=== PATIENT | male | born 1945 | race Caucasian/White ===

== ENCOUNTER 2016-03-09 16:43 | Inpatient (IN) | payer MEDICARE, MEDICAID ==
[2016-03-09 20:01] LABS: % BASOPHILS 0.4 % (0.0-2.0); % EOSINOPHILS 14.4 % (0.0-5.0); % LYMPHOCYTES 13.3 % (20.0-50.0); % MONOCYTES 6.9 % (2.0-10.0); ALB/GLOB RATIO 0.7 (1.0-1.8); ALKALINE PHOSPHATASE 85 U/L (34-104); ANION GAP 7.2 (7.0-16.0); BILIRUBIN,TOTAL 0.3 mg/dL (0.3-1.0); BUN - UREA NITROGEN 17 mg/dL (7-25); BUN/CREATININE RATIO 13.1; CARBON DIOXIDE 23.1 mEq/L (21.0-31.0); CHLORIDE 104 mEq/L (98-107); CREATININE - SERUM 1.3 mg/dL (0.7-1.3); GLUCOSE 106 mg/dL (70-105); MEAN CORPUSCULAR HEMOGLOBIN 24.4 pg (27.0-31.0); MEAN PLATELET VOLUME 7.9 fl; NEUTROPHILE ABSOLUTE 9.3 Th/cmm (1.8-8.0); PLATELET COUNT 412 Th/cmm (150-400); POTASSIUM SERUM 3.3 mEq/L (3.5-5.1); RED BLOOD COUNT 2.95 Mil/cmm (3.80-5.80); RED CELL DISTRIBUTION WIDTH 17.5 % (11.5-20.0); SGOT 7 U/L (13-39); SGPT/ALT < 3 U/L (7-52); SODIUM SERUM 131 mEq/L (136-145); WHITE BLOOD COUNT 14.4 Th/cmm (4.8-10.8)
[2016-03-09 20:07] LABS: HEMOGLOBIN 7.2 gm/dL (12.6-17.4)
[2016-03-09 20:08] LABS: HEMATOCRIT 21.8 % (39.0-49.0)
--- NOTE | 2016-03-09 20:59 | ED Physician Chart ---
Chief Complaint/HPI - Patient Information Date Seen:: 03/09/16 Time Seen:: 16:50 Chief Complaint:: bright red blood in stool History of Present Illness:: 70-year-old male, brought in from nursing facility with acute, moderate to severe, bright red blood per rectum that happened at 1430 this afternoon. History limited as patient has underlying dementia and is unable to provide accurate history History provided by EMS and EMS run sheet Allergies:: Allergies Allergy/AdvReac Type Severity Reaction Status Date / Time No Known Allergies Allergy Verified 03/09/16 17:30 Vitals:: Vital Signs - 8 hr 03/09/16 17:30 Temp 98.7 F HR 88 RR 17 BP 98/62 O2 Sat % 100 Historian:: EMS Review:: Nurse's Note Reviewed, EMS run form Reviewed, Transfer documents Reviewed Review of Systems - Review of Systems Other: Complete system review otherwise unremarkable except as noted in HPI. Past Medical History - Past Medical History Past Medical History: HTN, Asthma/COPD, Dementia Family History: None Social History: Non Smoker, No Alcohol, No Drug Use, Care Facility Surgical History: None Psychiatricy History: Dementia Medication: Reviewed Family Medical History - Family Member Mother History Unknown: Yes Ethnicity: Non- Living Status: Physical Exam - Physical Examination Other:: INITIAL VITAL SIGNS: Reviewed by me GENERAL: Alert and interactive but demented. No acute distress HEAD: Head is normocephalic and atraumatic EYES: EOMI. . No scleral icterus. No conjunctival injection ENT: Moist mucous membranes. NECK: Supple. No masses. Full range of motion RESPIRATORY: No tachypnea. Clear breath sounds bilaterally. No wheezing, rales, or rhonchi CV: Regular rate and rhythm. No murmurs, rubs, or gallops ABDOMEN: Soft, non-distended, non-tender. No guarding. No rebound. No masses. EXTREMITIES: No deformity. No cyanosis. No edema. SKIN: Warm and dry. No obvious rashes. RECTAL: No gross blood on digital exam. No appreciable hemorrhoids or excoriations. NEUROLOGIC: Alert and oriented. Face is symmetric. Speech is normal. Moves all extremities equally. Motor and sensory distally intact. Labs/Radiology/EKG Results - Lab Results Results: Laboratory Tests 03/09/16 03/09/16 19:31 19:31 WBC 14.4 H RBC 2.95 L Hgb 7.2 L* Hct 21.8 L* MCV 74.0 L MCH 24.4 L MCHC Differential 33.0 RDW 17.5 Plt Count 412 H MPV 7.9 Neutrophils % 65.0 Lymphocytes % 13.3 L Monocytes % 6.9 Eosinophils % 14.4 H Basophils % 0.4 Sodium 131 L Potassium 3.3 L Chloride 104 Carbon Dioxide 23.1 Anion Gap 7.2 BUN 17 Creatinine 1.3 Est GFR ( Amer) > 60.0 Est GFR (Non-Af Amer) 58.0 BUN/Creatinine Ratio 13.1 Glucose 106 H Calcium 9.0 Total Bilirubin 0.3 AST 7 L ALT < 3 L Alkaline Phosphatase 85 Total Protein 7.3 Albumin 3.1 L Globulin 4.2 Albumin/Globulin Ratio 0.7 L Assessment - Assessment General Assessment: Critical Care Time: 30 minutes Treatments/Evaluations: Close monitoring and treatment of unstable vital signs, cardiorespiratory, and neurologic status, while maintaining tight balance of fluid, respiratory, and cardiac interventions. This time includes discussing the case with the patient and the patient's family. This time does not include all procedures stated elsewhere in this record. This time also includes reviewing old records, labs and radiological studies. This time includes examining and re-examining the patient. Additionally, this time also includes arranging care with admitting and consulting physicians. Excludes all billable procedures: Yes This condition life threatening/high prob of deterioration: Yes ED Septic Shock - . Is Septic Shock (SBP<90, OR Lactate>4 mmol\L) present?: No - <6hrs of presentation: Vital Signs: Vital Signs - 8 hr 03/09/16 17:30 Temp 98.7 F HR 88 RR 17 BP 98/62 O2 Sat % 100 Reassessment (Disposition) - Reassessment Reassessment:: Patient has acute lower GI bleed. Ordered 1 unit of PRBCs and IV normal saline. Patient was monitored closely. There was critical care time on this patient of 30 minutes. Patient was discussed with Dr. Plaza who admitted the patient further workup and treatment. Reassessment Condition:: Unchanged - Diagnosis Diagnosis:: Lower GI bleed - Patient Disposition Discharge/Transfer:: Acute Care w/in this hosp Admitted to:: Telemetry Spoke to:: Adriano Plaza Admitting Medical Physician:: Adriano Plaza Time:: 21:31 Condition at Disposition:: Improved ED Discharge Plan - Patient Disposition Admit/Discharge/Transfer: Acute Care w/in this hosp Condition at Disposition: Improved
[2016-03-09] MEDS ORDERED: Sodium Chloride 0.9% 1,000 ML IV ONE (21:00)
[2016-03-09] MEDS ORDERED: APAP/Codeine 300 mg/30 mg Tab PO PRN (21:34)
[2016-03-09] MEDS ORDERED: Maalox 30 mL Cup PO PRN (21:34)
[2016-03-09 21:36] LABS: INR 1.02 (0.5-1.4); PROTHROMBIN TIME (TEST) 10.1 SECONDS (9.5-11.5)
[2016-03-09] MEDS ORDERED: Pantoprazole 80 MG in Sodium Chloride 0.9% 100 ML IV ONE (21:37)
[2016-03-09] MEDS ORDERED: Albuterol Nebulizer 2.5mg/3mL IH PRN (21:38)
[2016-03-09] MEDS ORDERED: D5-0.9%NS 1,000 ML IV SCH (21:45)
[2016-03-10] MEDS: Pantoprazole 80 MG in Sodium Chloride 0.9% 100 ML IV SCH ×2 (03:12→19:46)
[2016-03-10 04:46] LABS: % BASOPHILS 0.5 % (0.0-2.0); RED BLOOD COUNT 3.07 Mil/cmm (3.80-5.80)
[2016-03-10 04:51] LABS: INR 0.98 (0.5-1.4); PROTHROMBIN TIME (TEST) 9.7 SECONDS (9.5-11.5)
[2016-03-10 04:54] LABS: ALB/GLOB RATIO 0.7 (1.0-1.8); ALKALINE PHOSPHATASE 73 U/L (34-104); ANION GAP 6.8 (7.0-16.0); BILIRUBIN,TOTAL 0.7 mg/dL (0.3-1.0); BUN - UREA NITROGEN 14 mg/dL (7-25); CALCIUM SERUM 8.2 mg/dL (8.6-10.3); CARBON DIOXIDE 21.3 mEq/L (21.0-31.0); CHLORIDE 111 mEq/L (98-107); GLUCOSE 107 mg/dL (70-105); MAGNESIUM 2.1 mg/dL (1.9-2.7); POTASSIUM SERUM 3.1 mEq/L (3.5-5.1); SGOT 10 U/L (13-39); SGPT/ALT 4 U/L (7-52); SODIUM SERUM 136 mEq/L (136-145)
[2016-03-10 05:04] LABS: % EOSINOPHILS 12.2 % (0.0-5.0); % MONOCYTES 7.4 % (2.0-10.0); % NEUTROPHILS 70.9 % (40.0-80.0); MEAN CELL VOLUME 77.3 fl (80-99); MEAN CORPUSCULAR HEMOGLOBIN 25.3 pg (27.0-31.0); MEAN CORPUSCULAR HGB CONC 32.6 pg (28.0-36.0); MEAN PLATELET VOLUME 7.5 fl; NEUTROPHILE ABSOLUTE 10.6 Th/cmm (1.8-8.0); PLATELET COUNT 369 Th/cmm (150-400); RED CELL DISTRIBUTION WIDTH 19.3 % (11.5-20.0)
[2016-03-10 05:13] LABS: HEMATOCRIT 23.7 % (39.0-49.0); HEMOGLOBIN 7.8 gm/dL (12.6-17.4)
[2016-03-10 05:31] LABS: TSH 2.57 uIU/ml (0.34-5.60)
[2016-03-10 05:39] LABS: BNP 36.6 pg/mL (5.0-100.0)
[2016-03-10] MEDS ORDERED: FISH OIL PO SCH (09:00)
[2016-03-10] MEDS ORDERED: FATTY ACIDS PO SCH (09:00)
[2016-03-10] MEDS ORDERED: [UNRECOGNIZED DRUG - OTHER] PO SCH (09:00)
[2016-03-10] MEDS ORDERED: Fish Oil 1,000 MG SGL PO ONE (09:00)
[2016-03-10] MEDS ORDERED: OMEGA PO SCH (09:00)
--- NOTE | 2016-03-10 11:14 | Diagnostic Imaging Report ---
Portable chest x-ray History: Shortness of breath Allowing for portable technique the heart size is normal. No focal pulmonary parenchymal processes. No hilar or mediastinal abnormalities. Impression: No acute abnormalities.
--- NOTE | 2016-03-10 17:23 | Internal Medicine Prog Note ---
Internal Medicine Subjective - Subjective Service Date: 03/10/16 ([id number] HNP DICTATED) Internal Medicine Objective - Results Result Diagrams: 03/10/16 04:30 03/10/16 04:30 Recent Labs: Laboratory Last Values WBC 15.0 Th/cmm (4.8-10.8) H 03/10/16 04:30 RBC 3.07 Mil/cmm (3.80-5.80) L 03/10/16 04:30 Hgb 7.8 gm/dL (12.6-17.4) L* 03/10/16 04:30 Hct 23.7 % (39.0-49.0) L* 03/10/16 04:30 MCV 77.3 fl (80-99) L 03/10/16 04:30 MCH 25.3 pg (27.0-31.0) L 03/10/16 04:30 MCHC Differential 32.6 pg (28.0-36.0) 03/10/16 04:30 RDW 19.3 % (11.5-20.0) 03/10/16 04:30 Plt Count 369 Th/cmm (150-400) 03/10/16 04:30 MPV 7.5 fl 03/10/16 04:30 Neutrophils % 70.9 % (40.0-80.0) 03/10/16 04:30 Lymphocytes % 9.0 % (20.0-50.0) L 03/10/16 04:30 Monocytes % 7.4 % (2.0-10.0) 03/10/16 04:30 Eosinophils % 12.2 % (0.0-5.0) H 03/10/16 04:30 Basophils % 0.5 % (0.0-2.0) 03/10/16 04:30 PT 9.7 SECONDS (9.5-11.5) 03/10/16 04:30 INR 0.98 (0.5-1.4) 03/10/16 04:30 PTT (Actin FS) 28.8 SECONDS (26.0-38.0) 03/10/16 04:30 Sodium 136 mEq/L (136-145) 03/10/16 04:30 Potassium 3.1 mEq/L (3.5-5.1) L 03/10/16 04:30 Chloride 111 mEq/L (98-107) H 03/10/16 04:30 Carbon Dioxide 21.3 mEq/L (21.0-31.0) 03/10/16 04:30 Anion Gap 6.8 (7.0-16.0) L 03/10/16 04:30 BUN 14 mg/dL (7-25) 03/10/16 04:30 Creatinine 1.0 mg/dL (0.7-1.3) 03/10/16 04:30 Est GFR ( Amer) > 60.0 ml/min 03/10/16 04:30 Est GFR (Non-Af Amer) > 60.0 ml/min 03/10/16 04:30 BUN/Creatinine Ratio 14.0 03/10/16 04:30 Glucose 107 mg/dL (70-105) H 03/10/16 04:30 Calcium 8.2 mg/dL (8.6-10.3) L 03/10/16 04:30 Magnesium 2.1 mg/dL (1.9-2.7) 03/10/16 04:30 Total Bilirubin 0.7 mg/dL (0.3-1.0) 03/10/16 04:30 AST 10 U/L (13-39) L 03/10/16 04:30 ALT 4 U/L (7-52) L 03/10/16 04:30 Alkaline Phosphatase 73 U/L (34-104) 03/10/16 04:30 Ammonia 41 umol/L (16-53) 03/10/16 04:30 B-Natriuretic Peptide 36.6 pg/mL (5.0-100.0) 03/10/16 04:30 Total Protein 6.3 gm/dL (6.0-8.3) 03/10/16 04:30 Albumin 2.6 gm/dL (4.2-5.5) L 03/10/16 04:30 Globulin 3.7 gm/dL 03/10/16 04:30 Albumin/Globulin Ratio 0.7 (1.0-1.8) L 03/10/16 04:30 TSH 2.57 uIU/ml (0.34-5.60) 03/10/16 04:30 Blood Type B POSITIVE 03/09/16 19:31 Antibody Screen NEGATIVE 03/09/16 19:31 Crossmatch See Detail 03/09/16 19:31 - Physical Exam Vitals and I&O: Vital Signs Temp 98.6 F 03/10/16 16:46 Pulse 76 03/10/16 16:46 Resp 21 03/10/16 16:46 BP 101/57 03/10/16 16:46 Pulse Ox 98 03/10/16 16:46 Active Medications: Current Medications Acetaminophen (Tylenol) 650 mg PO Q6HR PRN PRN Reason: PAIN OR TEMP >100 Stop: 05/08/16 21:33 Acetaminophen/Codeine Phosphate (Tylenol W/Codeine #3) 1 tab PO Q4HR PRN PRN Reason: PAIN Stop: 05/08/16 21:33 Al Hydrox/Mg Hydrox/Simethicone (Maalox) 30 ml PO Q4HR PRN PRN Reason: Indigestion Stop: 05/08/16 21:33 Albuterol Sulfate (Albuterol 2.5mg/3ml Neb Ud) 2.5 mg IH Q2HR PRN PRN Reason: Shortness of Breath or Wheeze Stop: 05/08/16 21:37 Pantoprazole Sodium 80 mg/ (Sodium Chloride) 100 mls @ 10 mls/hr IV Q10H [facility] Stop: 05/08/16 21:44 Last Admin: 03/10/16 03:12 Dose: 10 mls/hr Dextrose/Sodium Chloride (D5-0.9%Ns) 1,000 mls @ 80 mls/hr IV .[id number] [facility] Stop: 05/08/16 21:44 Last Admin: 03/10/16 03:05 Dose: 80 mls/hr Meclizine HCl (Antivert) 25 mg PO DAILY PRN PRN Reason: Nausea / Vomiting Stop: 05/08/16 21:37 Mirtazapine (Remeron) 7.5 mg PO HS [facility] PRN Reason: Protocol Stop: 05/09/16 20:59 Miscellaneous (Donepezil Hcl [Aricept]) 10 mg PO HS [facility] Stop: 05/09/16 20:59 Ondansetron HCl (Zofran) 4 mg IV Q8H PRN PRN Reason: Nausea / Vomiting Stop: 05/08/16 21:37 Quetiapine Fumarate (Seroquel) 100 mg PO QPM COUNT INCLUDES THE [facility] PRN Reason: Protocol Stop: 05/09/16 16:59 Tamsulosin HCl (Flomax) 0.4 mg PO DAILY COUNT INCLUDES THE [facility] Stop: 05/09/16 08:59 Last Admin: 03/10/16 11:15 Dose: Not Given - Procedures Procedures: Procedures Procedure Code Date GROUP PSYCHOTHERAPY 10108 06/08/03 INDIVID PSYCHOTHERAP NEC 94.39 06/08/03 OTHER GROUP THERAPY 94.44 06/08/03 Internal Medicine Assmt/Plan - Assessment Assessment: GI BLEED ANEMIA HYPOTENSION
[2016-03-10] MEDS ORDERED: Pneumococcal Vaccine 0.5 mL Vial IM ONE (18:28)
[2016-03-10] MEDS ORDERED: Non-Formulary Item 1 EA (Donepezil Hcl [Aricept] 10 MG) PO SCH (21:00)
--- NOTE | 2016-03-10 21:03 | History & Physical ---
CHIEF COMPLAINT: Bright red stool. HISTORY OF PRESENT ILLNESS: This is a 70-year-old -[place] male who is a resident of [facility] who is sent here to [facility] for having bright red blood since this afternoon. The patient is awake, alert with some confusion, but no weakness noted. The patient is a very poor historian. PAST MEDICAL HISTORY: Hypertension, COPD, asthma, and dementia. FAMILY HISTORY: Noncontributory. SOCIAL HISTORY: The patient resides at [facility], requiring 24-hour nursing care. PSYCHIATRIC HISTORY: Dementia. MEDICATIONS: Please see medication reconciliation sheet. ALLERGIES: No drug allergies. REVIEW OF SYSTEMS: Unable to obtain, patient is confused. PHYSICAL EXAMINATION: GENERAL: The patient is well developed, well nourished, in no apparent distress. VITAL SIGNS: Temperature 98.6, heart rate 76, blood pressure 101/57, respirations 21, O2 90%. HEENT: Head; normocephalic, atraumatic. NECK: Supple. No mass. LUNGS: Clear bilaterally upon auscultation. CARDIOVASCULAR: Regular rate and rhythm. No murmurs, gallops. SKIN: Intact to touch. ABDOMEN: Soft, nontender, nondistended. Positive bowel sounds in all 4 quadrants. LABORATORY DATA: WBC 15.0, H and H 7.8 and 23.7, platelet of 369. Sodium 136, potassium 3.1, chloride 111, BUN 14, creatinine 1.0. The patient had a chest x-ray done in the ER and the impression is no acute abnormalities. ASSESSMENT: 1. GI bleed, ____, anemia. 2. Hypertension. 3. COPD. PLAN: The patient will be admitted to the telemetry unit. The patient will have a consultation with Dr. [place]. We will monitor the patient's H and H. The patient to be on IV fluids for hydration. We will continue to monitor the patient. JOB# [id number]
[2016-03-10] MEDS ORDERED: D5W w/20 mEq KCL 1,000 ML IV SCH ×2 (22:22→22:23)
[2016-03-10] MEDS ORDERED: Potassium Chloride 20 mEq ER Tab PO ONE (22:22)
[2016-03-11 07:30] LABS: ANION GAP 4.4 (7.0-16.0); BUN - UREA NITROGEN 9 mg/dL (7-25); CALCIUM SERUM 8.4 mg/dL (8.6-10.3); CARBON DIOXIDE 21.5 mEq/L (21.0-31.0); CHLORIDE 111 mEq/L (98-107); GLUCOSE 105 mg/dL (70-105); HEMATOCRIT 27.3 % (39.0-49.0); HEMOGLOBIN 9.1 gm/dL (12.6-17.4); MEAN CELL VOLUME 79.4 fl (80-99); MEAN CORPUSCULAR HEMOGLOBIN 26.4 pg (27.0-31.0); MEAN CORPUSCULAR HGB CONC 33.3 pg (28.0-36.0); MEAN PLATELET VOLUME 7.9 fl; PLATELET COUNT 354 Th/cmm (150-400); RED BLOOD COUNT 3.44 Mil/cmm (3.80-5.80); RED CELL DISTRIBUTION WIDTH 18.9 % (11.5-20.0); SODIUM SERUM 134 mEq/L (136-145)
[2016-03-11 07:40] LABS: POTASSIUM SERUM 2.9 mEq/L (3.5-5.1)
[2016-03-11 08:27] LABS: BAND NEUTROPHILE 5 % (0-10); EOSINOPHIL 8 % (0-5); NEUTROPHILS 76 % (40-80); PLATELET ESTIMATE ADEQUATE (NORMAL); PLATELET MORPHOLOGY NORMAL (NORMAL); TOTAL CELLS COUNTED 100
[2016-03-11 08:28] LABS: ANISOCYTOSIS 1+; MICROCYTOSIS 1+
[2016-03-11] MEDS: Potassium Chloride 20 mEq ER Tab PO SCH ×2 (11:26→17:52)
--- NOTE | 2016-03-11 12:26 | Internal Medicine Prog Note ---
Internal Medicine Subjective - Subjective Service Date: 03/11/16 Patient seen and examined:: with staff Patient is:: awake Per staff patient is:: no adverse event Internal Medicine Objective - Results Result Diagrams: 03/11/16 06:30 03/11/16 06:30 Recent Labs: Laboratory Last Values WBC 18.0 Th/cmm (4.8-10.8) H 03/11/16 06:30 RBC 3.44 Mil/cmm (3.80-5.80) L 03/11/16 06:30 Hgb 9.1 gm/dL (12.6-17.4) L 03/11/16 06:30 Hct 27.3 % (39.0-49.0) L D 03/11/16 06:30 MCV 79.4 fl (80-99) L 03/11/16 06:30 MCH 26.4 pg (27.0-31.0) L 03/11/16 06:30 MCHC Differential 33.3 pg (28.0-36.0) 03/11/16 06:30 RDW 18.9 % (11.5-20.0) 03/11/16 06:30 Plt Count 354 Th/cmm (150-400) 03/11/16 06:30 MPV 7.9 fl 03/11/16 06:30 Neutrophils % 70.9 % (40.0-80.0) 03/10/16 04:30 Band Neutrophils % 5 % (0-10) 03/11/16 06:30 Lymphocytes % 9.0 % (20.0-50.0) L 03/10/16 04:30 Monocytes % 7.4 % (2.0-10.0) 03/10/16 04:30 Eosinophils % 12.2 % (0.0-5.0) H 03/10/16 04:30 Basophils % 0.5 % (0.0-2.0) 03/10/16 04:30 Neutrophils (Manual) 76 % (40-80) 03/11/16 06:30 Lymphocytes 7 % (20-50) L 03/11/16 06:30 Monocytes 4 % (2-10) 03/11/16 06:30 Eosinophils 8 % (0-5) H 03/11/16 06:30 Platelet Estimate ADEQUATE (NORMAL) 03/11/16 06:30 Platelet Morphology NORMAL (NORMAL) 03/11/16 06:30 Anisocytosis 1+ 03/11/16 06:30 Microcytosis 1+ 03/11/16 06:30 RBC Morph Micro Appear ABNORMAL (NORMAL) 03/11/16 06:30 PT 9.7 SECONDS (9.5-11.5) 03/10/16 04:30 INR 0.98 (0.5-1.4) 03/10/16 04:30 PTT (Actin FS) 28.8 SECONDS (26.0-38.0) 03/10/16 04:30 Sodium 134 mEq/L (136-145) L 03/11/16 06:30 Potassium 2.9 mEq/L (3.5-5.1) L* 03/11/16 06:30 Chloride 111 mEq/L (98-107) H 03/11/16 06:30 Carbon Dioxide 21.5 mEq/L (21.0-31.0) 03/11/16 06:30 Anion Gap 4.4 (7.0-16.0) L 03/11/16 06:30 BUN 9 mg/dL (7-25) 03/11/16 06:30 Creatinine 1.0 mg/dL (0.7-1.3) 03/11/16 06:30 Est GFR ( Amer) > 60.0 ml/min 03/11/16 06:30 Est GFR (Non-Af Amer) > 60.0 ml/min 03/11/16 06:30 BUN/Creatinine Ratio 9.0 03/11/16 06:30 Glucose 105 mg/dL (70-105) 03/11/16 06:30 Calcium 8.4 mg/dL (8.6-10.3) L 03/11/16 06:30 Magnesium 2.0 mg/dL (1.9-2.7) 03/11/16 06:30 Total Bilirubin 0.7 mg/dL (0.3-1.0) 03/10/16 04:30 AST 10 U/L (13-39) L 03/10/16 04:30 ALT 4 U/L (7-52) L 03/10/16 04:30 Alkaline Phosphatase 73 U/L (34-104) 03/10/16 04:30 Ammonia 41 umol/L (16-53) 03/10/16 04:30 B-Natriuretic Peptide 36.6 pg/mL (5.0-100.0) 03/10/16 04:30 Total Protein 6.3 gm/dL (6.0-8.3) 03/10/16 04:30 Albumin 2.6 gm/dL (4.2-5.5) L 03/10/16 04:30 Globulin 3.7 gm/dL 03/10/16 04:30 Albumin/Globulin Ratio 0.7 (1.0-1.8) L 03/10/16 04:30 TSH 2.57 uIU/ml (0.34-5.60) 03/10/16 04:30 Blood Type B POSITIVE 03/09/16 19:31 Antibody Screen NEGATIVE 03/09/16 19:31 Crossmatch See Detail 03/09/16 19:31 - Physical Exam Vitals and I&O: Vital Signs Temp 100.3 F 03/11/16 04:00 Pulse 74 03/11/16 07:35 Resp 18 03/11/16 07:35 BP 114/64 03/11/16 04:00 Pulse Ox 98 03/11/16 07:35 Active Medications: Current Medications Acetaminophen (Tylenol) 650 mg PO Q6HR PRN PRN Reason: PAIN OR TEMP >100 Stop: 05/08/16 21:33 Last Admin: 03/11/16 04:45 Dose: 650 mg Acetaminophen/Codeine Phosphate (Tylenol W/Codeine #3) 1 tab PO Q4HR PRN PRN Reason: PAIN Stop: 05/08/16 21:33 Al Hydrox/Mg Hydrox/Simethicone (Maalox) 30 ml PO Q4HR PRN PRN Reason: Indigestion Stop: 05/08/16 21:33 Albuterol Sulfate (Albuterol 2.5mg/3ml Neb Ud) 2.5 mg IH Q2HR PRN PRN Reason: Shortness of Breath or Wheeze Stop: 05/08/16 21:37 Bisacodyl (Dulcolax 5 Mg Ec Tab) 10 mg PO X1 ONE Stop: 03/11/16 16:01 Donepezil HCl (Aricept) 10 mg PO HS [facility] Stop: 05/09/16 20:59 Last Admin: 03/10/16 21:21 Dose: 10 mg Pantoprazole Sodium 80 mg/ (Sodium Chloride) 100 mls @ 10 mls/hr IV Q10H [facility] Stop: 05/08/16 21:44 Last Admin: 03/10/16 19:46 Dose: 10 mls/hr Potassium Chloride/Dextrose (D5w W/20 Meq Kcl) 1,000 mls @ 80 mls/hr IV .[id number] [facility] Stop: 05/09/16 22:21 Last Admin: 03/10/16 23:11 Dose: 80 mls/hr Meclizine HCl (Antivert) 25 mg PO DAILY PRN PRN Reason: Nausea / Vomiting Stop: 05/08/16 21:37 Mirtazapine (Remeron) 7.5 mg PO HS [facility] PRN Reason: Protocol Stop: 05/09/16 20:59 Last Admin: 03/10/16 21:20 Dose: 7.5 mg Ondansetron HCl (Zofran) 4 mg IV Q8H PRN PRN Reason: Nausea / Vomiting Stop: 05/08/16 21:37 Potassium Chloride (Klor-Con) 40 meq PO Q6H [facility] Stop: 03/11/16 19:00 Last Admin: 03/11/16 11:26 Dose: 40 meq Quetiapine Fumarate (Seroquel) 100 mg PO QPM [facility] PRN Reason: Protocol Stop: 05/09/16 16:59 Last Admin: 03/10/16 18:50 Dose: 100 mg Tamsulosin HCl (Flomax) 0.4 mg PO DAILY [facility] Stop: 05/09/16 08:59 Last Admin: 03/11/16 08:32 Dose: 0.4 mg General: alert HEENT: NC/AT, PERRLA Neck: Supple Lungs: CTAB Cardiovascular: RRR, Normal S1, Normal S2, without murmur Abdomen: soft non-tender, non-distended, positive bowel sound - Procedures Procedures: Procedures Procedure Code Date GROUP PSYCHOTHERAPY 08295 06/08/03 INDIVID PSYCHOTHERAP NEC 94.39 06/08/03 OTHER GROUP THERAPY 94.44 06/08/03 Internal Medicine Assmt/Plan - Assessment Assessment: GI BLEED ANEMIA HYPOTENSION - Plan Plan: monitor h/h ivf for hydration cbc/bmp in am
[2016-03-11] MEDS: D5-0.45NS w/40 mEq KCL 1,000 ML IV SCH (14:36)
[2016-03-11] MEDS: Pantoprazole 80 MG in Sodium Chloride 0.9% 100 ML IV SCH (14:37)
[2016-03-11] MEDS ORDERED: Influenza Vaccine 0.5 mL Syr IM ONE (14:58)
[2016-03-11] MEDS ORDERED: VTE Chemical Prophylaxis Screen/Admission MC PRN (17:13)
--- NOTE | 2016-03-12 00:31 | Consultation ---
INPATIENT GASTROINTESTINAL CONSULTATION REFERRING PHYSICIAN: Dr. Plaza. REASON FOR CONSULTATION: Anemia and rectal bleeding. HISTORY OF PRESENT ILLNESS: This is a 70-year-old male who presented to the hospital with rectal bleeding in the Emergency Room. Since then, no further GI bleeding. The patient denies having any abdominal pain. He denies having nausea or vomiting. He states that the blood was bright red. PAST MEDICAL HISTORY: Hypertension, COPD, asthma, and dementia. PAST SURGICAL HISTORY: None to abdomen. FAMILY HISTORY: Noncontributory. SOCIAL HISTORY: Resident of [facility]. ALLERGIES: None. CURRENT MEDICATIONS: Tylenol, Aricept, Antivert, Remeron, Zofran, Protonix drip, Seroquel, and Flomax. REVIEW OF SYSTEMS: Notable for rectal bleeding. All other systems were otherwise negative. PHYSICAL EXAMINATION: VITAL SIGNS: Temperature is 100.3, breathing 18, pulse of 74, blood pressure 114/64, and satting 98%. GENERAL: In no apparent distress, thin. EYES: Eyes are anicteric. Normal conjunctivae. HEENT: Normocephalic and atraumatic. Moist mucous membranes. NECK: Soft and supple. CHEST: Clear, normal effort. CARDIOVASCULAR: Regular rate and rhythm. ABDOMEN: Soft, nontender, and nondistended. Normal bowel sounds. SKIN: Warm and dry. EXTREMITIES: Reveal no cyanosis. PSYCHOLOGICAL: Alert and oriented. LABORATORY DATA: Show white count 18, hemoglobin 9.1, and platelets of 354,000. INR is 0.98. LFTs were within normal limits. IMPRESSION: This is a 70-year-old male with microcytic anemia and rectal bleeding. Cause of the microcytic anemia could be from chronic blood loss, iron deficiency, or anemia of chronic disease. The patient's rectal bleeding would suggest lower source; however, ____ bleeding in the upper GI tract can also do this as well. Endoscopy and colonoscopy are considered because of the microcytic anemia for further workup and a colonoscopy would be beneficial because of the recent rectal bleeding. PLAN: 1. EGD, colonoscopy. 2. Follow H and H and transfuse as needed. Continue Protonix. Thank you for allowing me to participate. Please call me if you have any questions. [facility]# [phone]
[2016-03-12 06:12] LABS: FOLIC ACID 13.3 ng/mL (>3.0)
[2016-03-12] MEDS: D5-0.45NS w/40 mEq KCL 1,000 ML IV SCH (06:27)
[2016-03-12 08:57] LABS: INR 1.08 (0.5-1.4); PROTHROMBIN TIME (TEST) 10.8 SECONDS (9.5-11.5)
[2016-03-12 09:13] LABS: HEMOGLOBIN 10.3 gm/dL (12.6-17.4); MEAN CELL VOLUME 79.9 fl (80-99); MEAN CORPUSCULAR HEMOGLOBIN 27.5 pg (27.0-31.0); MEAN CORPUSCULAR HGB CONC 34.4 pg (28.0-36.0); MEAN PLATELET VOLUME 8.2 fl; PLATELET COUNT 336 Th/cmm (150-400); RED BLOOD COUNT 3.76 Mil/cmm (3.80-5.80); RED CELL DISTRIBUTION WIDTH 19.8 % (11.5-20.0)
[2016-03-12 09:18] LABS: HEMATOCRIT 30.1 % (39.0-49.0); WHITE BLOOD COUNT 22.5 Th/cmm (4.8-10.8)
[2016-03-12 09:33] LABS: ANION GAP 11.7 (7.0-16.0); BUN - UREA NITROGEN 8 mg/dL (7-25); CALCIUM SERUM 8.5 mg/dL (8.6-10.3); CARBON DIOXIDE 21.1 mEq/L (21.0-31.0); CHLORIDE 106 mEq/L (98-107); GLUCOSE 90 mg/dL (70-105); POTASSIUM SERUM 3.8 mEq/L (3.5-5.1); SODIUM SERUM 135 mEq/L (136-145)
[2016-03-12] MEDS: Pantoprazole 80 MG in Sodium Chloride 0.9% 100 ML IV SCH (09:56)
[2016-03-12 09:59] LABS: BAND NEUTROPHILE 5 % (0-10); BASOPHIL 1 % (0-3); EOSINOPHIL 6 % (0-5); NEUTROPHILS 84 % (40-80); PLATELET ESTIMATE ADEQUATE (NORMAL); PLATELET MORPHOLOGY NORMAL (NORMAL); TOTAL CELLS COUNTED 100
[2016-03-12] MEDS ORDERED: Lactated Ringer 1,000 ML IV SCH (13:00)
--- NOTE | 2016-03-12 13:02 | Infectious Disease Prog Note ---
Infectious Disease Subjective - Review of Systems Service Date: 03/12/16 Subjective: [id number] Infectious Disease Objective - Results Result Diagrams: 03/12/16 08:00 03/12/16 08:00 Recent Labs: Laboratory Last Values WBC 22.5 Th/cmm (4.8-10.8) H* D 03/12/16 08:00 RBC 3.76 Mil/cmm (3.80-5.80) L 03/12/16 08:00 Hgb 10.3 gm/dL (12.6-17.4) L 03/12/16 08:00 Hct 30.1 % (39.0-49.0) L D 03/12/16 08:00 MCV 79.9 fl (80-99) L 03/12/16 08:00 MCH 27.5 pg (27.0-31.0) 03/12/16 08:00 MCHC Differential 34.4 pg (28.0-36.0) 03/12/16 08:00 RDW 19.8 % (11.5-20.0) 03/12/16 08:00 Plt Count 336 Th/cmm (150-400) 03/12/16 08:00 MPV 8.2 fl 03/12/16 08:00 Neutrophils % 70.9 % (40.0-80.0) 03/10/16 04:30 Band Neutrophils % 5 % (0-10) 03/12/16 08:00 Lymphocytes % 9.0 % (20.0-50.0) L 03/10/16 04:30 Monocytes % 7.4 % (2.0-10.0) 03/10/16 04:30 Eosinophils % 12.2 % (0.0-5.0) H 03/10/16 04:30 Basophils % 0.5 % (0.0-2.0) 03/10/16 04:30 Neutrophils (Manual) 84 % (40-80) H 03/12/16 08:00 Lymphocytes 3 % (20-50) L 03/12/16 08:00 Monocytes 1 % (2-10) L 03/12/16 08:00 Eosinophils 6 % (0-5) H 03/12/16 08:00 Basophils 1 % (0-3) 03/12/16 08:00 Platelet Estimate ADEQUATE (NORMAL) 03/12/16 08:00 Platelet Morphology NORMAL (NORMAL) 03/12/16 08:00 Anisocytosis 1+ 03/11/16 06:30 Microcytosis 1+ 03/11/16 06:30 RBC Morph Micro Appear NORMAL (NORMAL) 03/12/16 08:00 PT 10.8 SECONDS (9.5-11.5) 03/12/16 08:00 INR 1.08 (0.5-1.4) 03/12/16 08:00 PTT (Actin FS) 28.8 SECONDS (26.0-38.0) 03/10/16 04:30 Sodium 135 mEq/L (136-145) L 03/12/16 08:00 Potassium 3.8 mEq/L (3.5-5.1) 03/12/16 08:00 Chloride 106 mEq/L (98-107) 03/12/16 08:00 Carbon Dioxide 21.1 mEq/L (21.0-31.0) 03/12/16 08:00 Anion Gap 11.7 (7.0-16.0) 03/12/16 08:00 BUN 8 mg/dL (7-25) 03/12/16 08:00 Creatinine 1.0 mg/dL (0.7-1.3) 03/12/16 08:00 Est GFR ( Amer) > 60.0 ml/min 03/12/16 08:00 Est GFR (Non-Af Amer) > 60.0 ml/min 03/12/16 08:00 BUN/Creatinine Ratio 8.0 03/12/16 08:00 Glucose 90 mg/dL (70-105) 03/12/16 08:00 Calcium 8.5 mg/dL (8.6-10.3) L 03/12/16 08:00 Magnesium 2.0 mg/dL (1.9-2.7) 03/11/16 06:30 Total Bilirubin 0.7 mg/dL (0.3-1.0) 03/10/16 04:30 AST 10 U/L (13-39) L 03/10/16 04:30 ALT 4 U/L (7-52) L 03/10/16 04:30 Alkaline Phosphatase 73 U/L (34-104) 03/10/16 04:30 Ammonia 41 umol/L (16-53) 03/10/16 04:30 B-Natriuretic Peptide 36.6 pg/mL (5.0-100.0) 03/10/16 04:30 Total Protein 6.3 gm/dL (6.0-8.3) 03/10/16 04:30 Albumin 2.6 gm/dL (4.2-5.5) L 03/10/16 04:30 Globulin 3.7 gm/dL 03/10/16 04:30 Albumin/Globulin Ratio 0.7 (1.0-1.8) L 03/10/16 04:30 Vitamin B12 389 pg/mL (211-946) 03/10/16 04:30 Folic Acid 13.3 ng/mL (>3.0) 03/10/16 04:30 TSH 2.57 uIU/ml (0.34-5.60) 03/10/16 04:30 Blood Type B POSITIVE 03/09/16 19:31 Antibody Screen NEGATIVE 03/09/16 19:31 Crossmatch See Detail 03/09/16 19:31 - Physical Exam Vitals and I&O: Vital Signs Temp 98.4 F 03/11/16 20:00 Pulse 77 03/12/16 07:08 Resp 20 03/12/16 07:08 BP 117/58 03/11/16 20:00 Pulse Ox 97 03/12/16 07:08 Intake & Output 03/11/16 03/12/16 03/12/16 18:59 06:59 18:59 Intake Total 1600 1400 Output Total 4 Balance 1600 1396 Intake: Intake, IV Amount 1100 D5-0.45NS w/40 mEq KCL 1, 1000 000 ml @ 75 mls/hr IV . [id number] [facility] Rx#:[id number] Pantoprazole 80 mg In 100 Sodium Chloride 0.9% 100 ml @ 10 mls/hr IV Q10H [facility] Rx#:[id number] Oral 1600 300 Output: Stool 4 Other: # Voids 2 # Bowel Movements 2 Stool Characteristics Soft Liquid Formed Brown Active Medications: Current Medications Acetaminophen (Tylenol) 650 mg PO Q6HR PRN PRN Reason: PAIN OR TEMP >100 Stop: 05/08/16 21:33 Last Admin: 03/12/16 09:37 Dose: 650 mg Acetaminophen/Codeine Phosphate (Tylenol W/Codeine #3) 1 tab PO Q4HR PRN PRN Reason: PAIN Stop: 05/08/16 21:33 Al Hydrox/Mg Hydrox/Simethicone (Maalox) 30 ml PO Q4HR PRN PRN Reason: Indigestion Stop: 05/08/16 21:33 Albuterol Sulfate (Albuterol 2.5mg/3ml Neb Ud) 2.5 mg IH Q2HR PRN PRN Reason: Shortness of Breath or Wheeze Stop: 05/08/16 21:37 Donepezil HCl (Aricept) 10 mg PO HS [facility] Stop: 05/09/16 20:59 Last Admin: 03/11/16 21:17 Dose: 10 mg Pantoprazole Sodium 80 mg/ (Sodium Chloride) 100 mls @ 10 mls/hr IV Q10H [facility] Stop: 05/08/16 21:44 Last Admin: 03/12/16 09:56 Dose: 10 mls/hr Potassium Chloride/Dextrose/Sod Cl (D5-0.45ns W/40 Meq Kcl) 1,000 mls @ 75 mls/ hr IV .[id number] [facility] Stop: 05/10/16 14:19 Last Admin: 03/12/16 06:27 Dose: 75 mls/hr Ceftriaxone Sodium 1 gm/ (Dextrose) 100 mls @ 100 mls/hr IV Q24H [facility] Stop: 05/11/16 12:59 Lactated Ringer's (Lactated Ringer) 1,000 mls @ 0 mls/hr IV .Q0M [facility] PRN Reason: TKO Stop: 03/13/16 12:59 Meclizine HCl (Antivert) 25 mg PO DAILY PRN PRN Reason: Nausea / Vomiting Stop: 05/08/16 21:37 Metronidazole (Flagyl) 500 mg PO TID [facility] Stop: 03/19/16 13:59 Mirtazapine (Remeron) 7.[address] [facility] PRN Reason: Protocol Stop: 05/09/16 20:59 Last Admin: 03/11/16 21:18 Dose: 7.5 mg Miscellaneous ([employer] Prophylaxis Screen/ Admission) 1 ea [facility] PRN PRN PRN Reason: PROTOCOL Stop: 05/10/16 17:12 Ondansetron HCl (Zofran) 4 mg IV Q8H PRN PRN Reason: Nausea / Vomiting Stop: 05/08/16 21:37 Ondansetron HCl (Zofran) 4 mg IV X1 PRN PRN Reason: Nausea / Vomiting Stop: 03/13/16 12:45 Quetiapine Fumarate (Seroquel) 100 mg PO QPM [facility] PRN Reason: Protocol Stop: 05/09/16 16:59 Last Admin: 03/11/16 16:22 Dose: 100 mg Tamsulosin HCl (Flomax) 0.4 mg PO DAILY [facility] Stop: 05/09/16 08:59 Last Admin: 03/12/16 08:40 Dose: Not Given - Procedures Procedures: Procedures Procedure Code Date GROUP PSYCHOTHERAPY 66575 06/08/03 INDIVID PSYCHOTHERAP NEC 94.39 06/08/03 OTHER GROUP THERAPY 94.44 06/08/03 Infectious Disease Assmt/Plan - Problem List Patient Problems: All Active Problems BLOOD CLOT IN STOOL (Acute)
--- NOTE | 2016-03-12 14:15 | Operative Report ---
INPATIENT GASTROINTESTINAL PROCEDURE PROCEDURE: EGD with biopsy. REFERRING PHYSICIAN: Dr. Plaza. REASON FOR PROCEDURE: Rectal bleeding. The patient refused the bowel prep and colonoscopy; therefore, EGD was done. CONSENT: Risks, benefits, alternatives, nature, indication, possible outcomes were discussed. Mentioned bleeding, infection, perforation, , disability, cardiopulmonary distress and arrest, missed lesion and cancers, need for surgery. The patient is agreeing ____ provided informed consent. PREOPERATIVE DIAGNOSIS: Rectal bleeding. POSTOPERATIVE DIAGNOSIS: Gastric erosion. MEDICATIONS: Provided by anesthesiologist. DESCRIPTION OF PROCEDURE: The patient was placed on left side. Upper gastroscope advanced from the mouth and second portion of duodenum. Scope brought back in the stomach. Retroflexion view of fundus, cardia, lesser curvature. Along the lesser curvature of stomach, there seemed to be gastric erosion. Biopsies were taken. Scope was slowly withdrawn through esophagus and removed. COMPLICATIONS: None. FINDINGS: 1. GE junction at 40 cm with a normal esophagus. 2. Gastric erosion along the lesser curvature of stomach, status post biopsy. 3. Normal duodenum. RECOMMENDATIONS: 1. Follow up on biopsy. 2. Provide the patient with Protonix. 3. Based upon pathology, he may need a repeat EGD in the future 3-6 months. 4. Since the patient refused the bowel prep and is not cooperating, other alternatives would be a CT scan and bleeding scan. 5. Follow H and H. Thank you for allowing me to participate. Please call me if any questions. [facility]# [id number]
--- NOTE | 2016-03-12 14:54 | Diagnostic Imaging Report ---
CT scan abdomen and pelvis without intravenous contrast HISTORY: Pain Total DLP equals 328 CTDI equals 7.1 Axial sections were obtained from the xiphoid process down to the pubic symphysis. The liver appears enlarged. No focal lesions. The spleen appears normal. Pancreatic calcifications are noted. Findings are consistent with changes of chronic pancreatitis. The gallbladder is poorly visualized. Questionable gallstone. An ultrasound exam recommended for further assessment and evaluation. No significant focal renal lesions. Assess chronic calcination noted within the abdominal aorta and major branches. There is poor delineation the bowel wall margins due to paucity of intra-abdominal fat. There is an approximate 11.0 cm mass that occupies the mid pelvis. There is poor delineation of the adjacent bowel wall margins. Etiology is indeterminate. Haziness noted in the perirectal region. Degenerative changes seen through the spine. IMPRESSION: 1. Suggestion of relatively large pelvic mass. Relationship to the adjacent bowel is unclear. Etiology is indeterminate. A CT scan following administration of oral and intravenous contrast would provide additional characterization and assessment. 2. Findings consistent with chronic pancreatitis 3. Question cholelithiasis. Sonography would provide additional assessment 4. Hepatomegaly
--- NOTE | 2016-03-12 16:44 | Internal Medicine Prog Note ---
Internal Medicine Subjective - Subjective Patient seen and examined:: with staff, chart reviewed Patient is:: awake, verbal, interactive Patient Complaints of:: congestion Per staff patient is:: no episodes of fall, poor appetite, confused Internal Medicine Objective - Results Result Diagrams: 03/12/16 08:00 03/12/16 08:00 Recent Labs: Laboratory Last Values WBC 22.5 Th/cmm (4.8-10.8) H* D 03/12/16 08:00 RBC 3.76 Mil/cmm (3.80-5.80) L 03/12/16 08:00 Hgb 10.3 gm/dL (12.6-17.4) L 03/12/16 08:00 Hct 30.1 % (39.0-49.0) L D 03/12/16 08:00 MCV 79.9 fl (80-99) L 03/12/16 08:00 MCH 27.5 pg (27.0-31.0) 03/12/16 08:00 MCHC Differential 34.4 pg (28.0-36.0) 03/12/16 08:00 RDW 19.8 % (11.5-20.0) 03/12/16 08:00 Plt Count 336 Th/cmm (150-400) 03/12/16 08:00 MPV 8.2 fl 03/12/16 08:00 Neutrophils % 70.9 % (40.0-80.0) 03/10/16 04:30 Band Neutrophils % 5 % (0-10) 03/12/16 08:00 Lymphocytes % 9.0 % (20.0-50.0) L 03/10/16 04:30 Monocytes % 7.4 % (2.0-10.0) 03/10/16 04:30 Eosinophils % 12.2 % (0.0-5.0) H 03/10/16 04:30 Basophils % 0.5 % (0.0-2.0) 03/10/16 04:30 Neutrophils (Manual) 84 % (40-80) H 03/12/16 08:00 Lymphocytes 3 % (20-50) L 03/12/16 08:00 Monocytes 1 % (2-10) L 03/12/16 08:00 Eosinophils 6 % (0-5) H 03/12/16 08:00 Basophils 1 % (0-3) 03/12/16 08:00 Platelet Estimate ADEQUATE (NORMAL) 03/12/16 08:00 Platelet Morphology NORMAL (NORMAL) 03/12/16 08:00 Anisocytosis 1+ 03/11/16 06:30 Microcytosis 1+ 03/11/16 06:30 RBC Morph Micro Appear NORMAL (NORMAL) 03/12/16 08:00 PT 10.8 SECONDS (9.5-11.5) 03/12/16 08:00 INR 1.08 (0.5-1.4) 03/12/16 08:00 PTT (Actin FS) 28.8 SECONDS (26.0-38.0) 03/10/16 04:30 Sodium 135 mEq/L (136-145) L 03/12/16 08:00 Potassium 3.8 mEq/L (3.5-5.1) 03/12/16 08:00 Chloride 106 mEq/L (98-107) 03/12/16 08:00 Carbon Dioxide 21.1 mEq/L (21.0-31.0) 03/12/16 08:00 Anion Gap 11.7 (7.0-16.0) 03/12/16 08:00 BUN 8 mg/dL (7-25) 03/12/16 08:00 Creatinine 1.0 mg/dL (0.7-1.3) 03/12/16 08:00 Est GFR ( Amer) > 60.0 ml/min 03/12/16 08:00 Est GFR (Non-Af Amer) > 60.0 ml/min 03/12/16 08:00 BUN/Creatinine Ratio 8.0 03/12/16 08:00 Glucose 90 mg/dL (70-105) 03/12/16 08:00 Calcium 8.5 mg/dL (8.6-10.3) L 03/12/16 08:00 Magnesium 2.0 mg/dL (1.9-2.7) 03/11/16 06:30 Total Bilirubin 0.7 mg/dL (0.3-1.0) 03/10/16 04:30 AST 10 U/L (13-39) L 03/10/16 04:30 ALT 4 U/L (7-52) L 03/10/16 04:30 Alkaline Phosphatase 73 U/L (34-104) 03/10/16 04:30 Ammonia 41 umol/L (16-53) 03/10/16 04:30 B-Natriuretic Peptide 36.6 pg/mL (5.0-100.0) 03/10/16 04:30 Total Protein 6.3 gm/dL (6.0-8.3) 03/10/16 04:30 Albumin 2.6 gm/dL (4.2-5.5) L 03/10/16 04:30 Globulin 3.7 gm/dL 03/10/16 04:30 Albumin/Globulin Ratio 0.7 (1.0-1.8) L 03/10/16 04:30 Vitamin B12 389 pg/mL (211-946) 03/10/16 04:30 Folic Acid 13.3 ng/mL (>3.0) 03/10/16 04:30 TSH 2.57 uIU/ml (0.34-5.60) 03/10/16 04:30 Blood Type B POSITIVE 03/09/16 19:31 Antibody Screen NEGATIVE 03/09/16 19:31 Crossmatch See Detail 03/09/16 19:31 - Physical Exam Vitals and I&O: Vital Signs Temp 98.4 F 03/11/16 20:00 Pulse 77 03/12/16 07:08 Resp 20 03/12/16 07:08 BP 117/58 03/11/16 20:00 Pulse Ox 97 03/12/16 07:08 Intake & Output 03/11/16 03/12/16 03/12/16 18:59 06:59 18:59 Intake Total 1600 1400 Output Total 4 Balance 1600 1396 Intake: Intake, IV Amount 1100 D5-0.45NS w/40 mEq KCL 1, 1000 000 ml @ 75 mls/hr IV . [id number] AMAURI Rx#:[id number] Pantoprazole 80 mg In 100 Sodium Chloride 0.9% 100 ml @ 10 mls/hr IV Q10H [facility]MA[facility] Rx#:[id number] Oral 1600 300 Output: Stool 4 Other: # Voids 2 # Bowel Movements 2 Stool Characteristics Soft Liquid Formed Brown Active Medications: Current Medications Acetaminophen (Tylenol) 650 mg PO Q6HR PRN PRN Reason: PAIN OR TEMP >100 Stop: 05/08/16 21:33 Last Admin: 03/12/16 09:37 Dose: 650 mg Acetaminophen/Codeine Phosphate (Tylenol W/Codeine #3) 1 tab PO Q4HR PRN PRN Reason: PAIN Stop: 05/08/16 21:33 Al Hydrox/Mg Hydrox/Simethicone (Maalox) 30 ml PO Q4HR PRN PRN Reason: Indigestion Stop: 05/08/16 21:33 Albuterol Sulfate (Albuterol 2.5mg/3ml Neb Ud) 2.5 mg IH Q2HR PRN PRN Reason: Shortness of Breath or Wheeze Stop: 05/08/16 21:37 Donepezil HCl (Aricept) 10 mg PO HS [facility] Stop: 05/09/16 20:59 Last Admin: 03/11/16 21:17 Dose: 10 mg Pantoprazole Sodium 80 mg/ (Sodium Chloride) 100 mls @ 10 mls/hr IV Q10H [facility] Stop: 05/08/16 21:44 Last Admin: 03/12/16 09:56 Dose: 10 mls/hr Potassium Chloride/Dextrose/Sod Cl (D5-0.45ns W/40 Meq Kcl) 1,000 mls @ 75 mls/ hr IV .[id number] [facility] Stop: 05/10/16 14:19 Last Admin: 03/12/16 06:27 Dose: 75 mls/hr Ceftriaxone Sodium 1 gm/ (Dextrose) 100 mls @ 100 mls/hr IV Q24H [facility] Stop: 05/11/16 12:59 Last Admin: 03/12/16 13:53 Dose: 100 mls/hr Lactated Ringer's (Lactated Ringer) 1,000 mls @ 0 mls/hr IV .Q0M [facility] PRN Reason: TKO Stop: 03/12/16 17:00 Meclizine HCl (Antivert) 25 mg PO DAILY PRN PRN Reason: Nausea / Vomiting Stop: 05/08/16 21:37 Metronidazole (Flagyl) 500 mg PO TID [facility] Stop: 03/19/16 13:59 Last Admin: 03/12/16 15:11 Dose: 500 mg Mirtazapine (Remeron) 7.5 mg PO HS [facility] PRN Reason: Protocol Stop: 05/09/16 20:59 Last Admin: 03/11/16 21:18 Dose: 7.5 mg Miscellaneous (Vte Chemical Prophylaxis Screen/ Admission) 1 ea [facility] PRN PRN PRN Reason: PROTOCOL Stop: 05/10/16 17:12 Ondansetron HCl (Zofran) 4 mg IV Q8H PRN PRN Reason: Nausea / Vomiting Stop: 05/08/16 21:37 Ondansetron HCl (Zofran) 4 mg IV PRN PRN PRN Reason: Nausea / Vomiting Stop: 05/11/16 12:45 Quetiapine Fumarate (Seroquel) 100 mg PO QPM [facility] PRN Reason: Protocol Stop: 05/09/16 16:59 Last Admin: 03/11/16 16:22 Dose: 100 mg Tamsulosin HCl (Flomax) 0.4 mg PO DAILY [facility] Stop: 05/09/16 08:59 Last Admin: 03/12/16 08:40 Dose: Not Given General: lethargic, demented HEENT: NC/AT, PERRLA Neck: Supple, No JVD Lungs: congested Cardiovascular: RRR, Normal S1, Normal S2 Abdomen: soft non-tender, thin Extremities: excoriation, contracture Neurological: no change - Procedures Procedures: Procedures Procedure Code Date GROUP PSYCHOTHERAPY 23754 06/08/03 INDIVID PSYCHOTHERAP NEC 94.39 06/08/03 OTHER GROUP THERAPY 94.44 06/08/03 Internal Medicine Assmt/Plan - Assessment Assessment: GI BLEED ANEMIA HYPOTENSION leukocytosis malnutrition - Plan Plan: cont on iv fluid abx check culture id and gi follow up [place] rn check labs
--- NOTE | 2016-03-12 23:38 | Admit Criteria Form ---
Admit Criteria Forms - Admit Criteria Diagnosis: GASTROINTESTINAL BLEEDING, LOWER Clinical Indications for Admission to Inpatient Care ( Place 'X' for any and all applicable criteria): Admission is indicated for ANY ONE of the following(1)(2)(3)(4)(5): [ ]I. Active gross bleeding per rectum [X ]II. Inpatient admission required rather than observation care (Also use Gastrointestinal Bleeding, Lower: Observation Care as appropriate) because of ANY ONE of the following: [ ]a) Hemodynamic instability that is severe or persistent [ ]b) Anemia requiring inpatient admission as indicated by ALL of the following: [ ]1) Presence of significant clinical finding indicated by ANY ONE of the following: [ ]A. Tachycardia for age [ ]B. Orthostatic vital sign changes [ ]C. Cognitive impairment [ ]D. Heart failure [ ]E. Chest pain [ ]F. Exertional dyspnea [ ]G. Other findings suggesting inadequate perfusion (eg, peripheral or myocardial ischemia, end organ dysfunction) [ ]2) Initial (eg, emergency department, observation care) treatment with transfusion or volume replacement is judged inappropriate (due to severity of the finding) or has been ineffective [ ]c) Severe pain requiring acute inpatient management [ ]d) Absent bowel sounds with complete ileus [ ]e) Signs of intestinal obstruction or peritonitis [A] [ ]f) High-risk low platelet count [ ]g) Severe electrolyte abnormalities requiring inpatient care [ ]h) Acute renal failure [ ]i) High fever or infection requiring inpatient admission as indicated by ANY ONE of the following(8)(9): [ ]1) Appropriate outpatient or observation care antimicrobial treatment unavailable, not effective, or not feasible Documented bacteremia [ ]2) Documented bacteremia [ ]3) Temperature greater than 104.9 degrees F ( 40.5 degrees C) (oral) [ ]4) Temperature greater than 103.1 degrees F ( 39.5 degrees C) (oral) or less than 96.8 degrees F (36 degrees C) (rectal) that does not respond to all emergency treatment measures [ ]j) IV fluid to replace significant ongoing losses ( greater than 3 L/m2 per day) [ ]k) Immediate inpatient surgery needed [ ]l) Parenteral nutrition regimen that must be implemented on inpatient basis [ X]m) Other condition, treatment or monitoring requiring inpatient admission [ ]III. Unstable comorbid illness (renal, hepatic, pulmonary, hematologic, neurologic, or cardiac) [ ]IV. Failure to control bleeding after colonoscopy [ ]V. Coagulopathy [ ]. Suspected or known ischemic colitis(6) [ ]VII. Previous aortic graft placement or known aortic aneurysm Extended stay beyond goal length of stay may be needed for(3)(4)(28): [ ]a) Emergency surgery [ ]b) Coagulation abnormalities(26) [ ]c) Recurrent or persistent bleeding, continued vital sign instability(27)( 28) [ ]d) Active comorbidities (eg, renal insufficiency, heart failure, pre- existing liver disease) The original [employer] content created by [employer] has been revised. The portions of the content which have been revised are identified through the use of italic text or in bold, and [facility] has neither reviewed nor approved the modified material. All other unmodified content is copyright [employer]. Please see references footnoted in the original [employer] edition 2016 Admit Criteria Met?: Yes
--- NOTE | 2016-03-13 01:26 | Consultation ---
INFECTIOUS DISEASE CONSULTATION REFERRING PHYSICIAN: Dr. Plaza. REASON FOR CONSULTATION: Leukocytosis. HISTORY OF PRESENT ILLNESS: The patient is a 70-year-old male with past medical history of hypertension, asthma, COPD, and dementia, brought in from nursing facility for [id number] bright red blood per rectum on the day of admission. On initial evaluation, the patient's temperature was 98.7 degrees Fahrenheit and WBC count was 14,400. Hemoglobin 7.2 and repeat hemoglobin next day was 7.8. The patient had received 2 units of PRBC on 03/09/2016 and 03/10/2016. The patient had endoscopy performed today. Besides this, the patient's WBC count went up to 22,500. The patient also developed fever of 100.3 degrees Fahrenheit and ID consult was called for further antibiotic management. Meanwhile, the patient is off antibiotic. PAST MEDICAL HISTORY: Dementia, hypertension, COPD, and asthma. FAMILY HISTORY: Noncontributory. SOCIAL HISTORY: The patient lives at a nursing facility. No history of smoking, alcohol, or drug use. PAST SURGICAL HISTORY: None. PSYCHIATRIC HISTORY: Dementia. ALLERGIES: No known drug allergies. MEDICATIONS: As per medication reconciliation sheet. Antibiotic hart, none. FAMILY HISTORY: Not available. REVIEW OF SYSTEMS: The patient is unable to give any history. The patient was seen in postop area where he was found to be sedated. Unable to communicate at this time. PHYSICAL EXAMINATION: VITAL SIGNS: Current vital signs show temperature is 98.4, T-max is 100.3 degrees Fahrenheit, pulse 77, respiration 20, blood pressure 117/58 and oxygen saturation 97%. GENERAL: The patient is comfortable, lying in the bed, not in acute distress. HEENT: Head is normocephalic and atraumatic. Oral cavity moist, pink tongue. Eyes: Pallor is present, no icterus. PERRLA. EOMI. NECK: Supple. No JVD and no carotid bruit. Trachea in midline. CHEST: Bilateral breath sounds. No crackles or wheezing. HEART: S1, S2 within normal limits. Regular rhythm. No murmur and no gallop. ABDOMEN: Soft, nontender, and nondistended. Bowel sounds present. EXTREMITIES: No cyanosis, no clubbing, and no edema. NEUROLOGIC: Sedated. LABORATORY DATA: Current lab shows WBC count is 22,500, hemoglobin 10.3, hematocrit 30.1, platelets 336,000, neutrophils 84%, lymphocyte 3%. Sodium is 135, potassium 3.8, chloride 106, bicarbonate is 21. BUN is 8, creatinine of 1.0. Glucose is 90. MRSA screen is negative. Chest x-ray shows no active disease. IMPRESSION: 1. Leukocytosis, likely reactive, rule out sepsis. 2. Dementia. 3. History of hypertension. 4. Gastrointestinal bleed. RECOMMENDATIONS: Start Rocephin empirically. Check blood cultures, urinalysis, urine culture. Blood cultures are ordered. Thank you Dr. Plaza for involving me taking care of this patient. JOB# [id number] GAYLA
[2016-03-13] MEDS: D5-0.45NS w/40 mEq KCL 1,000 ML IV SCH ×2 (01:54→22:39)
--- NOTE | 2016-03-13 02:29 | Consultation ---
REFERRING PHYSICIAN: Dr. Plaza. REASON FOR CONSULTATION: Leukocytosis. HISTORY OF PRESENT ILLNESS: The patient is a 70-year-old male with past medical history of dementia, unable to provide any information, talked to nursing facility for ____ bright red blood per rectum. On initial evaluation, the patient's temperature was 98.7 degrees Fahrenheit and WBC count was 14,400. The patient's hemoglobin was 7.2, so 2 units of PRBC transfused. The patient was taken to the EGD today and patient was seen in the postop area, but he was sedated. Unable to give any history at this time. The patient's WBC count went up to 22,500 with fever of 100.3 degrees Fahrenheit. ID consult was called for further antibiotic management. PAST MEDICAL HISTORY: Includes dementia, hypertension, asthma, COPD. FAMILY HISTORY: None. SOCIAL HISTORY: Has a history of smoking, alcohol or drug use. The patient lives at nursing facility. PAST SURGICAL HISTORY: None. PSYCHIATRIC HISTORY: Dementia. MEDICATIONS: As per medication reconciliation sheet. Antibiotic hart, NKDA. REVIEW OF SYSTEMS: Unable to obtain, but the patient had low grade fever yesterday. PHYSICAL EXAMINATION: VITAL SIGNS: Shows temperature is 98.4 degrees Fahrenheit, T-max is 100.3 degree Fahrenheit, pulse is 77, respiration 20, blood pressure 117/58. GENERAL: The patient is comfortable lying in the bed, not in acute distress. HEENT: Head is normocephalic, atraumatic. Oral cavity moist, pink tongue. Eyes, pallor is present, no icterus. PERRLA, EOMI. NECK: Supple, no JVD, no carotid bruit. Trachea in midline. CHEST: Bilateral breath sounds. No crackles or wheezing. CARDIOVASCULAR: S1 and S2 within normal limits. Regular rhythm. No murmur, no gallop. ABDOMEN: Soft, nontender, nondistended. Bowel sounds present. EXTREMITIES: No cyanosis, no clubbing, no edema. NEUROLOGIC: Sedated. LABORATORY DATA: Current labs shows WBC count is 22,500, hemoglobin 10.3, hematocrit is ____, platelets are 336,000, neutrophil is 84%. Sodium is 135, potassium 3.8, chloride 106, bicarbonate is 21, BUN is 8, creatinine 1, glucose is 90. MRSA screen negative. [facility]# [id number]
[2016-03-13] MEDS: Pantoprazole 80 MG in Sodium Chloride 0.9% 100 ML IV SCH ×3 (02:31→22:41)
[2016-03-13 07:36] LABS: HEMATOCRIT 28.2 % (39.0-49.0); HEMOGLOBIN 9.6 gm/dL (12.6-17.4); MEAN CELL VOLUME 79.2 fl (80-99); MEAN CORPUSCULAR HEMOGLOBIN 26.8 pg (27.0-31.0); MEAN CORPUSCULAR HGB CONC 33.9 pg (28.0-36.0); MEAN PLATELET VOLUME 8.3 fl; PLATELET COUNT 315 Th/cmm (150-400); RED BLOOD COUNT 3.56 Mil/cmm (3.80-5.80); RED CELL DISTRIBUTION WIDTH 19.3 % (11.5-20.0)
[2016-03-13 07:42] LABS: WHITE BLOOD COUNT 17.4 Th/cmm (4.8-10.8)
[2016-03-13 07:43] LABS: ALB/GLOB RATIO 0.7 (1.0-1.8); ALKALINE PHOSPHATASE 82 U/L (34-104); ANION GAP 8.2 (7.0-16.0); BILIRUBIN,TOTAL 0.4 mg/dL (0.3-1.0); BUN - UREA NITROGEN 10 mg/dL (7-25); BUN/CREATININE RATIO 9.1; CALCIUM SERUM 8.5 mg/dL (8.6-10.3); CARBON DIOXIDE 21.3 mEq/L (21.0-31.0); CHLORIDE 111 mEq/L (98-107); CREATININE - SERUM 1.1 mg/dL (0.7-1.3); GLUCOSE 86 mg/dL (70-105); POTASSIUM SERUM 3.5 mEq/L (3.5-5.1); SGOT 19 U/L (13-39); SGPT/ALT 11 U/L (7-52); SODIUM SERUM 137 mEq/L (136-145)
[2016-03-13 10:24] LABS: BAND NEUTROPHILE 3 % (0-10); EOSINOPHIL 12 % (0-5); NEUTROPHILS 69 % (40-80); TOTAL CELLS COUNTED 100
[2016-03-13 10:25] LABS: ANISOCYTOSIS 1+; MICROCYTOSIS 1+; PLATELET ESTIMATE ADEQUATE (NORMAL); PLATELET MORPHOLOGY GIANT PLATELETS SEEN (NORMAL)
--- NOTE | 2016-03-13 11:01 | Diagnostic Imaging Report ---
Nuclear medicine GI bleeding scan History: Rectal bleeding Comparison: CT abdomen and pelvis on 03/12/2016 demonstrating pelvic mass lesion possibly a colonic malignancy. Technique/procedure: 20 mCi of technetium labeled tagged red blood cells was administered intravenously and flow and multiple sequential images were obtained from to 60 minutes. Findings: Flow images demonstrate no significant focal uptake. Sequential follow-up images demonstrate areas of uptake along the left lower quadrant. IMPRESSION: Areas of uptake noted within the left lower quadrant, nonspecific however occult bleeding in this region cannot be excluded. Note patient may have a large mass within the sigmoid colon (colonic malignancy) when compared to recent CT examination. When clinically feasible colonoscopy should be considered.
--- NOTE | 2016-03-13 12:20 | Pathology Report ---
[id number] Collection date: 03/12/16 Surgeon: Bethel Ayala Specimen Description: Part 1: Duodenum biopsy. Part 2: Antrum biopsy. Gross Description: Part 1: Received in formalin at two lyon soft tissue fragments ranging from 0.1 to 0.2 cm in greatest dimension. Totally submitted in one cassette labeled A. Part 2: Received in formalin at three lyon soft tissue fragments ranging from 0.1 to 0.2 cm in greatest dimension. Totally submitted in one cassette labeled B. Microscopic Description: Part 1: The histologic sections show duodenal mucosa with intact intestinal villi, showing no significant abnormalities. Part 2: The histologic sections show gastric mucosa with chronic inflammation present, consisting of mostly lymphocytes and plasma cells with a few neutrophils also appreciated. The Giemsa stain shows no evidence for Helicobacter pylori. Diagnosis: Part 1: No evidence for celiac disease/sprue (duodenum biopsy). Part 2: 1. Chronic gastritis, antrum biopsy. 2. The Giemsa stain is negative for Helicobacter pylori. [facility]# [id number] [facility]
[2016-03-13] MEDS ORDERED: IOHEXOL 300MG/ML 100 ML VIAL PO ONE (13:07)
--- NOTE | 2016-03-13 13:49 | Internal Medicine Prog Note ---
Internal Medicine Subjective - Subjective Service Date: 03/13/16 Patient seen and examined:: with staff Patient is:: awake Per staff patient is:: no adverse event Internal Medicine Objective - Results Result Diagrams: 03/13/16 06:03 03/13/16 06:03 Recent Labs: Laboratory Last Values WBC 17.4 Th/cmm (4.8-10.8) H D 03/13/16 06:03 RBC 3.56 Mil/cmm (3.80-5.80) L 03/13/16 06:03 Hgb 9.6 gm/dL (12.6-17.4) L 03/13/16 06:03 Hct 28.2 % (39.0-49.0) L 03/13/16 06:03 MCV 79.2 fl (80-99) L 03/13/16 06:03 MCH 26.8 pg (27.0-31.0) L 03/13/16 06:03 MCHC Differential 33.9 pg (28.0-36.0) 03/13/16 06:03 RDW 19.3 % (11.5-20.0) 03/13/16 06:03 Plt Count 315 Th/cmm (150-400) 03/13/16 06:03 MPV 8.3 fl 03/13/16 06:03 Neutrophils % 70.9 % (40.0-80.0) 03/10/16 04:30 Band Neutrophils % 3 % (0-10) 03/13/16 06:03 Lymphocytes % 9.0 % (20.0-50.0) L 03/10/16 04:30 Monocytes % 7.4 % (2.0-10.0) 03/10/16 04:30 Eosinophils % 12.2 % (0.0-5.0) H 03/10/16 04:30 Basophils % 0.5 % (0.0-2.0) 03/10/16 04:30 Neutrophils (Manual) 69 % (40-80) 03/13/16 06:03 Lymphocytes 6 % (20-50) L 03/13/16 06:03 Monocytes 10 % (2-10) 03/13/16 06:03 Eosinophils 12 % (0-5) H 03/13/16 06:03 Basophils 1 % (0-3) 03/12/16 08:00 Platelet Estimate ADEQUATE (NORMAL) 03/13/16 06:03 Platelet Morphology GIANT PLATELETS SEEN (NORMAL) 03/13/16 06:03 Anisocytosis 1+ 03/13/16 06:03 Microcytosis 1+ 03/13/16 06:03 RBC Morph Micro Appear ABNORMAL (NORMAL) 03/13/16 06:03 PT 10.8 SECONDS (9.5-11.5) 03/12/16 08:00 INR 1.08 (0.5-1.4) 03/12/16 08:00 PTT (Actin FS) 28.8 SECONDS (26.0-38.0) 03/10/16 04:30 Sodium 137 mEq/L (136-145) 03/13/16 06:03 Potassium 3.5 mEq/L (3.5-5.1) 03/13/16 06:03 Chloride 111 mEq/L (98-107) H 03/13/16 06:03 Carbon Dioxide 21.3 mEq/L (21.0-31.0) 03/13/16 06:03 Anion Gap 8.2 (7.0-16.0) 03/13/16 06:03 BUN 10 mg/dL (7-25) 03/13/16 06:03 Creatinine 1.1 mg/dL (0.7-1.3) 03/13/16 06:03 Est GFR ( Amer) > 60.0 ml/min 03/13/16 06:03 Est GFR (Non-Af Amer) > 60.0 ml/min 03/13/16 06:03 BUN/Creatinine Ratio 9.1 03/13/16 06:03 Glucose 86 mg/dL (70-105) 03/13/16 06:03 Calcium 8.5 mg/dL (8.6-10.3) L 03/13/16 06:03 Magnesium 2.0 mg/dL (1.9-2.7) 03/11/16 06:30 Total Bilirubin 0.4 mg/dL (0.3-1.0) 03/13/16 06:03 AST 19 U/L (13-39) 03/13/16 06:03 ALT 11 U/L (7-52) 03/13/16 06:03 Alkaline Phosphatase 82 U/L (34-104) 03/13/16 06:03 Ammonia 41 umol/L (16-53) 03/10/16 04:30 B-Natriuretic Peptide 36.6 pg/mL (5.0-100.0) 03/10/16 04:30 Total Protein 6.6 gm/dL (6.0-8.3) 03/13/16 06:03 Albumin 2.6 gm/dL (4.2-5.5) L 03/13/16 06:03 Globulin 4.0 gm/dL 03/13/16 06:03 Albumin/Globulin Ratio 0.7 (1.0-1.8) L 03/13/16 06:03 Vitamin B12 389 pg/mL (211-946) 03/10/16 04:30 Folic Acid 13.3 ng/mL (>3.0) 03/10/16 04:30 TSH 2.57 uIU/ml (0.34-5.60) 03/10/16 04:30 Blood Type B POSITIVE 03/09/16 19:31 Antibody Screen NEGATIVE 03/09/16 19:31 Crossmatch See Detail 03/09/16 19:31 - Physical Exam Vitals and I&O: Vital Signs Temp 98.2 F 03/13/16 12:20 Pulse 66 03/13/16 12:20 Resp 18 03/13/16 12:20 BP 112/53 03/13/16 12:20 Pulse Ox 98 03/13/16 12:20 Intake & Output 03/12/16 03/13/16 03/13/16 18:59 06:59 18:59 Intake Total 100 1100 Balance 100 1100 Intake: Intake, IV Amount 100 1100 D5-0.45NS w/40 mEq KCL 1, 1000 000 ml @ 75 mls/hr IV . [id number] [facility] Rx#:[id number] Pantoprazole 80 mg In 100 Sodium Chloride 0.9% 100 ml @ 10 mls/hr IV Q10H [facility] Rx#:[id number] cefTRIAXone 1 gm In 100 Dextrose 5% 100 ml @ 100 mls/hr IV Q24H [facility] Rx#: [id number] Other: # Voids 4 # Bowel Movements 2 Stool Characteristics Soft Liquid Active Medications: Current Medications Acetaminophen (Tylenol) 650 mg PO Q6HR PRN PRN Reason: PAIN OR TEMP >100 Stop: 05/08/16 21:33 Last Admin: 03/12/16 09:37 Dose: 650 mg Acetaminophen/Codeine Phosphate (Tylenol W/Codeine #3) 1 tab PO Q4HR PRN PRN Reason: PAIN Stop: 05/08/16 21:33 Al Hydrox/Mg Hydrox/Simethicone (Maalox) 30 ml PO Q4HR PRN PRN Reason: Indigestion Stop: 05/08/16 21:33 Albuterol Sulfate (Albuterol 2.5mg/3ml Neb Ud) 2.5 mg IH Q2HR PRN PRN Reason: Shortness of Breath or Wheeze Stop: 05/08/16 21:37 Donepezil HCl (Aricept) 10 mg PO HS [facility] Stop: 05/09/16 20:59 Last Admin: 03/13/16 02:19 Dose: 10 mg Pantoprazole Sodium 80 mg/ (Sodium Chloride) 100 mls @ 10 mls/hr IV Q10H [facility] Stop: 05/08/16 21:44 Last Admin: 03/13/16 02:31 Dose: 10 mls/hr Potassium Chloride/Dextrose/Sod Cl (D5-0.45ns W/40 Meq Kcl) 1,000 mls @ 75 mls/ hr IV .[id number] [facility] Stop: 05/10/16 14:19 Last Admin: 03/13/16 01:54 Dose: 75 mls/hr Ceftriaxone Sodium 1 gm/ (Dextrose) 100 mls @ 100 mls/hr IV Q24H [facility] Stop: 05/11/16 12:59 Last Admin: 03/13/16 12:05 Dose: 100 mls/hr Meclizine HCl (Antivert) 25 mg PO DAILY PRN PRN Reason: Nausea / Vomiting Stop: 05/08/16 21:37 Metronidazole (Flagyl) 500 mg PO TID [facility] Stop: 03/19/16 13:59 Last Admin: 03/13/16 09:40 Dose: Not Given Mirtazapine (Remeron) 7.5 mg PO HS [facility] PRN Reason: Protocol Stop: 05/09/16 20:59 Last Admin: 03/13/16 02:21 Dose: 7.5 mg Miscellaneous (Vte Chemical Prophylaxis Screen/ Admission) 1 ea [facility] PRN PRN PRN Reason: PROTOCOL Stop: 05/10/16 17:12 Ondansetron HCl (Zofran) 4 mg IV Q8H PRN PRN Reason: Nausea / Vomiting Stop: 05/08/16 21:37 Quetiapine Fumarate (Seroquel) 100 mg PO QPM [facility] PRN Reason: Protocol Stop: 05/09/16 16:59 Last Admin: 03/12/16 17:02 Dose: 100 mg Tamsulosin HCl (Flomax) 0.4 mg PO DAILY [facility] Stop: 05/09/16 08:59 Last Admin: 03/13/16 09:39 Dose: Not Given General: alert HEENT: NC/AT, PERRLA Neck: Supple Lungs: CTAB Cardiovascular: RRR, Normal S1, Normal S2, without murmur Abdomen: soft non-tender, non-distended, positive bowel sound Neurological: no change - Procedures Procedures: Procedures Procedure Code Date GROUP PSYCHOTHERAPY 54355 06/08/03 INDIVID PSYCHOTHERAP NEC 94.39 06/08/03 OTHER GROUP THERAPY 94.44 06/08/03 Internal Medicine Assmt/Plan - Assessment Assessment: GI BLEED ANEMIA HYPOTENSION - Plan Plan: monitor h/h ivf for hydration cbc/bmp in am cont. ivabx
--- NOTE | 2016-03-13 13:52 | Diagnostic Imaging Report ---
CT abdomen and pelvis with IV and oral intravenous contrast Indication: Mass Comparison: CT abdomen and pelvis on 03/12/2016 and GI bleeding scan 03/12/2016, Technique: Axial images were obtained from the lung bases to the bilateral proximal femurs with IV and oral contrast. Coronal reconstructions were made. total DLP: 295, CTDI6.4 FINDINGS: Bibasilar passive atelectasis is noted. No evidence of focal hepatic lesions. No focal splenic lesions. Pancreatic gland atrophy is seen with diffuse pancreatic gland calcifications. Left subcentimeter low-density renal lesions are seen to small to characterize but suggestive of cysts. Bilateral renal scarring is noted. No hydronephrosis. There are probable small gallstones. There is a large heterogeneous mass within the pelvis measuring 7.3 x 6 cm possibly arising from the sigmoid colon. Copious stool is seen. Distal sigmoid and rectal wall thickening is seen with small amount of adjacent free fluid. No evidence of small bowel obstruction. Appendix is not visualized No free abdominal air. Diffuse atherosclerotic vascular disease is noted. Degenerative changes spine and pelvis are noted. There is a 1 cm sclerotic density of the left lower iliac bone. IMPRESSION: Large pelvic mass which may be intraluminal and arise from the sigmoid colon and may represent a large colonic malignancy. Correlation and follow-up is recommended. Adjacent distal sigmoid colon and rectal wall thickening with mild surrounding inflammatory changes small amount of free fluid in the pelvis No evidence of small bowel obstruction Heavy atherosclerotic vascular disease. Pancreatic gland calcifications sequela of chronic pancreatitis. Probable cholelithiasis ultrasound would provide additional assessment. 1 cm sclerotic lesion involving the lower iliac bone. Findings may represent an incidental bone island. Correlation with old exams would be helpful for comparison.. Short-term follow-up surveillance CT examination or nuclear medicine bone scan may also be obtained.
[2016-03-13 16:23] LABS: URINE COLOR YELLOW; URINE GLUCOSE (UA) NEGATIVE (NEGATIVE)
[2016-03-13 16:24] LABS: URINE BILIRUBIN NEGATIVE (NEGATIVE); URINE BLOOD LARGE (NEGATIVE); URINE KETONE NEGATIVE (NEGATIVE); URINE PH 5.5; URINE PROTEIN NEGATIVE (NEGATIVE)
[2016-03-13 17:08] LABS: URINE BACTERIA OCCASIONAL /hpf (NONE SEEN); URINE EPITHELIAL CELLS FEW /lpf (FEW)
[2016-03-13] MEDS ORDERED: Magnesium Citrate 1.75 GM/300 mL Bottle PO ONE (21:41)
--- NOTE | 2016-03-13 23:08 | Infectious Disease Prog Note ---
Infectious Disease Subjective - Review of Systems Service Date: 03/13/16 Subjective: No new change. Infectious Disease Objective - Results Result Diagrams: 03/13/16 06:03 03/13/16 06:03 Recent Labs: Laboratory Last Values WBC 17.4 Th/cmm (4.8-10.8) H D 03/13/16 06:03 RBC 3.56 Mil/cmm (3.80-5.80) L 03/13/16 06:03 Hgb 9.6 gm/dL (12.6-17.4) L 03/13/16 06:03 Hct 28.2 % (39.0-49.0) L 03/13/16 06:03 MCV 79.2 fl (80-99) L 03/13/16 06:03 MCH 26.8 pg (27.0-31.0) L 03/13/16 06:03 MCHC Differential 33.9 pg (28.0-36.0) 03/13/16 06:03 RDW 19.3 % (11.5-20.0) 03/13/16 06:03 Plt Count 315 Th/cmm (150-400) 03/13/16 06:03 MPV 8.3 fl 03/13/16 06:03 Neutrophils % 70.9 % (40.0-80.0) 03/10/16 04:30 Band Neutrophils % 3 % (0-10) 03/13/16 06:03 Lymphocytes % 9.0 % (20.0-50.0) L 03/10/16 04:30 Monocytes % 7.4 % (2.0-10.0) 03/10/16 04:30 Eosinophils % 12.2 % (0.0-5.0) H 03/10/16 04:30 Basophils % 0.5 % (0.0-2.0) 03/10/16 04:30 Neutrophils (Manual) 69 % (40-80) 03/13/16 06:03 Lymphocytes 6 % (20-50) L 03/13/16 06:03 Monocytes 10 % (2-10) 03/13/16 06:03 Eosinophils 12 % (0-5) H 03/13/16 06:03 Basophils 1 % (0-3) 03/12/16 08:00 Platelet Estimate ADEQUATE (NORMAL) 03/13/16 06:03 Platelet Morphology GIANT PLATELETS SEEN (NORMAL) 03/13/16 06:03 Anisocytosis 1+ 03/13/16 06:03 Microcytosis 1+ 03/13/16 06:03 RBC Morph Micro Appear ABNORMAL (NORMAL) 03/13/16 06:03 PT 10.8 SECONDS (9.5-11.5) 03/12/16 08:00 INR 1.08 (0.5-1.4) 03/12/16 08:00 PTT (Actin FS) 28.8 SECONDS (26.0-38.0) 03/10/16 04:30 Sodium 137 mEq/L (136-145) 03/13/16 06:03 Potassium 3.5 mEq/L (3.5-5.1) 03/13/16 06:03 Chloride 111 mEq/L (98-107) H 03/13/16 06:03 Carbon Dioxide 21.3 mEq/L (21.0-31.0) 03/13/16 06:03 Anion Gap 8.2 (7.0-16.0) 03/13/16 06:03 BUN 10 mg/dL (7-25) 03/13/16 06:03 Creatinine 1.1 mg/dL (0.7-1.3) 03/13/16 06:03 Est GFR ( Amer) > 60.0 ml/min 03/13/16 06:03 Est GFR (Non-Af Amer) > 60.0 ml/min 03/13/16 06:03 BUN/Creatinine Ratio 9.1 03/13/16 06:03 Glucose 86 mg/dL (70-105) 03/13/16 06:03 Calcium 8.5 mg/dL (8.6-10.3) L 03/13/16 06:03 Magnesium 2.0 mg/dL (1.9-2.7) 03/11/16 06:30 Total Bilirubin 0.4 mg/dL (0.3-1.0) 03/13/16 06:03 AST 19 U/L (13-39) 03/13/16 06:03 ALT 11 U/L (7-52) 03/13/16 06:03 Alkaline Phosphatase 82 U/L (34-104) 03/13/16 06:03 Ammonia 41 umol/L (16-53) 03/10/16 04:30 B-Natriuretic Peptide 36.6 pg/mL (5.0-100.0) 03/10/16 04:30 Total Protein 6.6 gm/dL (6.0-8.3) 03/13/16 06:03 Albumin 2.6 gm/dL (4.2-5.5) L 03/13/16 06:03 Globulin 4.0 gm/dL 03/13/16 06:03 Albumin/Globulin Ratio 0.7 (1.0-1.8) L 03/13/16 06:03 Vitamin B12 389 pg/mL (211-946) 03/10/16 04:30 Folic Acid 13.3 ng/mL (>3.0) 03/10/16 04:30 TSH 2.57 uIU/ml (0.34-5.60) 03/10/16 04:30 Urine Source CATH 03/13/16 16:00 Urine Color YELLOW 03/13/16 16:00 Urine Clarity CLEAR (CLEAR) 03/13/16 16:00 Urine pH 5.5 03/13/16 16:00 Ur Specific [place] 1.010 (1.005-1.030) 03/13/16 16:00 Urine Protein NEGATIVE mg/dL (NEGATIVE) 03/13/16 16:00 Urine Glucose (UA) NEGATIVE mg/dL (NEGATIVE) 03/13/16 16:00 Urine Ketones NEGATIVE mg/dL (NEGATIVE) 03/13/16 16:00 Urine Blood LARGE (NEGATIVE) H 03/13/16 16:00 Urine Nitrate NEGATIVE (NEGATIVE) 03/13/16 16:00 Urine Bilirubin NEGATIVE (NEGATIVE) 03/13/16 16:00 Urine Urobilinogen 1.0 E.U./dL (0.2 - 1.0) 03/13/16 16:00 Ur Leukocyte Esterase TRACE (NEGATIVE) H 03/13/16 16:00 Urine RBC 10-25 /hpf (0-5) H 03/13/16 16:00 Urine WBC 6-10 /hpf (0-5) H 03/13/16 16:00 Ur Epithelial Cells FEW /lpf (FEW) 03/13/16 16:00 Urine Bacteria OCCASIONAL /hpf (NONE SEEN) 03/13/16 16:00 Blood Type B POSITIVE 03/09/16 19:31 Antibody Screen NEGATIVE 03/09/16 19:31 Crossmatch See Detail 03/09/16 19:31 - Physical Exam Vitals and I&O: Vital Signs Temp 99.2 F 03/13/16 20:00 Pulse 76 03/13/16 20:00 Resp 20 03/13/16 20:00 BP 111/56 03/13/16 20:00 Pulse Ox 96 03/13/16 20:00 Intake & Output 03/13/16 03/13/16 03/14/16 06:59 18:59 06:59 Intake Total 1100 3950 70.667 Balance 1100 3950 70.667 Intake: Intake, IV Amount 1100 1200 70.667 D5-0.45NS w/40 mEq KCL 1, 1000 1000 000 ml @ 75 mls/hr IV . [id number] [facility] Rx#:[id number] Pantoprazole 80 mg In 100 100 70.667 Sodium Chloride 0.9% 100 ml @ 10 mls/hr IV Q10H [facility] Rx#:[id number] cefTRIAXone 1 gm In 100 Dextrose 5% 100 ml @ 100 mls/hr IV Q24H [facility] Rx#: [id number] Oral 2750 Other: # Voids 4 # Bowel Movements 1 Stool Characteristics Liquid Active Medications: Current Medications Acetaminophen (Tylenol) 650 mg PO Q6HR PRN PRN Reason: PAIN OR TEMP >100 Stop: 05/08/16 21:33 Last Admin: 03/12/16 09:37 Dose: 650 mg Acetaminophen/Codeine Phosphate (Tylenol W/Codeine #3) 1 tab PO Q4HR PRN PRN Reason: PAIN Stop: 05/08/16 21:33 Al Hydrox/Mg Hydrox/Simethicone (Maalox) 30 ml PO Q4HR PRN PRN Reason: Indigestion Stop: 05/08/16 21:33 Albuterol Sulfate (Albuterol 2.5mg/3ml Neb Ud) 2.5 mg IH Q2HR PRN PRN Reason: Shortness of Breath or Wheeze Stop: 05/08/16 21:37 Donepezil HCl (Aricept) 10 mg PO HS [facility] Stop: 05/09/16 20:59 Last Admin: 03/13/16 21:49 Dose: 10 mg Pantoprazole Sodium 80 mg/ (Sodium Chloride) 100 mls @ 10 mls/hr IV Q10H [facility] Stop: 05/08/16 21:44 Last Admin: 03/13/16 22:41 Dose: 10 mls/hr Potassium Chloride/Dextrose/Sod Cl (D5-0.45ns W/40 Meq Kcl) 1,000 mls @ 75 mls/ hr IV .[id number] [facility] Stop: 05/10/16 14:19 Last Admin: 03/13/16 22:39 Dose: 75 mls/hr Ceftriaxone Sodium 1 gm/ (Dextrose) 100 mls @ 100 mls/hr IV Q24H [facility] Stop: 05/11/16 12:59 Last Infusion: 03/13/16 18:56 Dose: Infused Meclizine HCl (Antivert) 25 mg PO DAILY PRN PRN Reason: Nausea / Vomiting Stop: 05/08/16 21:37 Metronidazole (Flagyl) 500 mg PO TID [facility] Stop: 03/19/16 13:59 Last Admin: 03/13/16 21:49 Dose: 500 mg Mirtazapine (Remeron) 7.5 mg PO HS [facility] PRN Reason: Protocol Stop: 05/09/16 20:59 Last Admin: 03/13/16 21:49 Dose: 7.5 mg Miscellaneous (Vte Chemical Prophylaxis Screen/ Admission) 1 ea [facility] PRN PRN PRN Reason: PROTOCOL Stop: 05/10/16 17:12 Ondansetron HCl (Zofran) 4 mg IV Q8H PRN PRN Reason: Nausea / Vomiting Stop: 05/08/16 21:37 Quetiapine Fumarate (Seroquel) 100 mg PO QPM [facility] PRN Reason: Protocol Stop: 05/09/16 16:59 Last Admin: 03/13/16 16:50 Dose: 100 mg Tamsulosin HCl (Flomax) 0.4 mg PO DAILY [facility] Stop: 05/09/16 08:59 Last Admin: 03/13/16 09:39 Dose: Not Given General: no acute distress, well developed, well nourished HEENT: atraumatic, normocephalic, PERRLA, EOMI Neck: supple Cardiovascular: S1S2, regular Lungs: clear to auscultation bilaterally, clear to percussion Abdomen: soft, no tender, no distended Extremities: no cyanosis, no clubbing, no edema Neurological: awake, alert Skin: intact - Procedures Procedures: Procedures Procedure Code Date GROUP PSYCHOTHERAPY 09325 06/08/03 INDIVID PSYCHOTHERAP NEC 94.39 06/08/03 OTHER GROUP THERAPY 94.44 06/08/03 Infectious Disease Assmt/Plan - Problem List Patient Problems: All Active Problems BLOOD CLOT IN STOOL (Acute) - Assessment Assessment: Impression: 1. Sepsis. 2, Intraabdominal mass? colon CA. 3. GI Bleed 2/2 #2. 4. Dementia. 5. History of hypertension. RECOMMENDATIONS: Continue Rocephin empirically.
[2016-03-14 07:31] LABS: % BASOPHILS 1.1 % (0.0-2.0); % EOSINOPHILS 11.9 % (0.0-5.0); % LYMPHOCYTES 10.1 % (20.0-50.0); % MONOCYTES 9.5 % (2.0-10.0); % NEUTROPHILS 67.4 % (40.0-80.0); HEMATOCRIT 29.5 % (39.0-49.0); HEMOGLOBIN 9.8 gm/dL (12.6-17.4); MEAN CELL VOLUME 79.7 fl (80-99); MEAN CORPUSCULAR HEMOGLOBIN 26.6 pg (27.0-31.0); MEAN CORPUSCULAR HGB CONC 33.4 pg (28.0-36.0); MEAN PLATELET VOLUME 8.4 fl; NEUTROPHILE ABSOLUTE 8.1 Th/cmm (1.8-8.0); PLATELET COUNT 332 Th/cmm (150-400); RED CELL DISTRIBUTION WIDTH 19.5 % (11.5-20.0)
[2016-03-14 07:53] LABS: BUN - UREA NITROGEN 7 mg/dL (7-25); BUN/CREATININE RATIO 7.8; CALCIUM SERUM 8.3 mg/dL (8.6-10.3); CARBON DIOXIDE 22.6 mEq/L (21.0-31.0); CHLORIDE 108 mEq/L (98-107); CREATININE - SERUM 0.9 mg/dL (0.7-1.3); GLUCOSE 112 mg/dL (70-105); POTASSIUM SERUM 3.6 mEq/L (3.5-5.1); SODIUM SERUM 134 mEq/L (136-145)
[2016-03-14 08:11] LABS: WHITE BLOOD COUNT 11.9 Th/cmm (4.8-10.8)
[2016-03-14] MEDS: Pantoprazole 80 MG in Sodium Chloride 0.9% 100 ML IV SCH (11:15)
--- NOTE | 2016-03-14 16:06 | Internal Medicine Prog Note ---
Internal Medicine Subjective - Subjective Service Date: 03/14/16 Patient seen and examined:: with staff Patient is:: awake Per staff patient is:: no adverse event Internal Medicine Objective - Results Result Diagrams: 03/14/16 06:20 03/14/16 06:20 Recent Labs: Laboratory Last Values WBC 11.9 Th/cmm (4.8-10.8) H D 03/14/16 06:20 RBC 3.70 Mil/cmm (3.80-5.80) L 03/14/16 06:20 Hgb 9.8 gm/dL (12.6-17.4) L 03/14/16 06:20 Hct 29.5 % (39.0-49.0) L 03/14/16 06:20 MCV 79.7 fl (80-99) L 03/14/16 06:20 MCH 26.6 pg (27.0-31.0) L 03/14/16 06:20 MCHC Differential 33.4 pg (28.0-36.0) 03/14/16 06:20 RDW 19.5 % (11.5-20.0) 03/14/16 06:20 Plt Count 332 Th/cmm (150-400) 03/14/16 06:20 MPV 8.4 fl 03/14/16 06:20 Neutrophils % 67.4 % (40.0-80.0) 03/14/16 06:20 Band Neutrophils % 3 % (0-10) 03/13/16 06:03 Lymphocytes % 10.1 % (20.0-50.0) L 03/14/16 06:20 Monocytes % 9.5 % (2.0-10.0) 03/14/16 06:20 Eosinophils % 11.9 % (0.0-5.0) H 03/14/16 06:20 Basophils % 1.1 % (0.0-2.0) 03/14/16 06:20 Neutrophils (Manual) 69 % (40-80) 03/13/16 06:03 Lymphocytes 6 % (20-50) L 03/13/16 06:03 Monocytes 10 % (2-10) 03/13/16 06:03 Eosinophils 12 % (0-5) H 03/13/16 06:03 Basophils 1 % (0-3) 03/12/16 08:00 Platelet Estimate ADEQUATE (NORMAL) 03/13/16 06:03 Platelet Morphology GIANT PLATELETS SEEN (NORMAL) 03/13/16 06:03 Anisocytosis 1+ 03/13/16 06:03 Microcytosis 1+ 03/13/16 06:03 RBC Morph Micro Appear ABNORMAL (NORMAL) 03/13/16 06:03 PT 10.8 SECONDS (9.5-11.5) 03/12/16 08:00 INR 1.08 (0.5-1.4) 03/12/16 08:00 PTT (Actin FS) 28.8 SECONDS (26.0-38.0) 03/10/16 04:30 Sodium 134 mEq/L (136-145) L 03/14/16 06:20 Potassium 3.6 mEq/L (3.5-5.1) 03/14/16 06:20 Chloride 108 mEq/L (98-107) H 03/14/16 06:20 Carbon Dioxide 22.6 mEq/L (21.0-31.0) 03/14/16 06:20 Anion Gap 7.0 (7.0-16.0) 03/14/16 06:20 BUN 7 mg/dL (7-25) 03/14/16 06:20 Creatinine 0.9 mg/dL (0.7-1.3) 03/14/16 06:20 Est GFR ( Amer) > 60.0 ml/min 03/14/16 06:20 Est GFR (Non-Af Amer) > 60.0 ml/min 03/14/16 06:20 BUN/Creatinine Ratio 7.8 03/14/16 06:20 Glucose 112 mg/dL (70-105) H 03/14/16 06:20 Calcium 8.3 mg/dL (8.6-10.3) L 03/14/16 06:20 Magnesium 2.0 mg/dL (1.9-2.7) 03/11/16 06:30 Total Bilirubin 0.4 mg/dL (0.3-1.0) 03/13/16 06:03 AST 19 U/L (13-39) 03/13/16 06:03 ALT 11 U/L (7-52) 03/13/16 06:03 Alkaline Phosphatase 82 U/L (34-104) 03/13/16 06:03 Ammonia 41 umol/L (16-53) 03/10/16 04:30 B-Natriuretic Peptide 36.6 pg/mL (5.0-100.0) 03/10/16 04:30 Total Protein 6.6 gm/dL (6.0-8.3) 03/13/16 06:03 Albumin 2.6 gm/dL (4.2-5.5) L 03/13/16 06:03 Globulin 4.0 gm/dL 03/13/16 06:03 Albumin/Globulin Ratio 0.7 (1.0-1.8) L 03/13/16 06:03 Vitamin B12 389 pg/mL (211-946) 03/10/16 04:30 Folic Acid 13.3 ng/mL (>3.0) 03/10/16 04:30 TSH 2.57 uIU/ml (0.34-5.60) 03/10/16 04:30 Urine Source CATH 03/13/16 16:00 Urine Color YELLOW 03/13/16 16:00 Urine Clarity CLEAR (CLEAR) 03/13/16 16:00 Urine pH 5.5 03/13/16 16:00 Ur Specific [place] 1.010 (1.005-1.030) 03/13/16 16:00 Urine Protein NEGATIVE mg/dL (NEGATIVE) 03/13/16 16:00 Urine Glucose (UA) NEGATIVE mg/dL (NEGATIVE) 03/13/16 16:00 Urine Ketones NEGATIVE mg/dL (NEGATIVE) 03/13/16 16:00 Urine Blood LARGE (NEGATIVE) H 03/13/16 16:00 Urine Nitrate NEGATIVE (NEGATIVE) 03/13/16 16:00 Urine Bilirubin NEGATIVE (NEGATIVE) 03/13/16 16:00 Urine Urobilinogen 1.0 E.U./dL (0.2 - 1.0) 03/13/16 16:00 Ur Leukocyte Esterase TRACE (NEGATIVE) H 03/13/16 16:00 Urine RBC 10-25 /hpf (0-5) H 03/13/16 16:00 Urine WBC 6-10 /hpf (0-5) H 03/13/16 16:00 Ur Epithelial Cells FEW /lpf (FEW) 03/13/16 16:00 Urine Bacteria OCCASIONAL /hpf (NONE SEEN) 03/13/16 16:00 Blood Type B POSITIVE 03/09/16 19:31 Antibody Screen NEGATIVE 03/09/16 19:31 Crossmatch See Detail 03/09/16 19:31 - Physical Exam Vitals and I&O: Vital Signs Temp 97.1 F 03/14/16 12:00 Pulse 69 03/14/16 12:00 Resp 18 03/14/16 12:00 BP 116/76 03/14/16 12:00 Pulse Ox 97 03/14/16 12:00 Intake & Output 03/13/16 03/14/16 03/14/16 18:59 06:59 18:59 Intake Total 3950 70.667 100 Balance 3950 70.667 100 Intake: Intake, IV Amount 1200 70.667 100 D5-0.45NS w/40 mEq KCL 1, 1000 000 ml @ 75 mls/hr IV . [id number] [facility] Rx#:[id number] Pantoprazole 80 mg In 100 70.667 100 Sodium Chloride 0.9% 100 ml @ 10 mls/hr IV Q10H [facility] Rx#:[id number] cefTRIAXone 1 gm In 100 Dextrose 5% 100 ml @ 100 mls/hr IV Q24H [facility] Rx#: [id number] Oral 2750 Other: # Voids 4 # Bowel Movements 1 Stool Characteristics Liquid Active Medications: Current Medications Acetaminophen (Tylenol) 650 mg PO Q6HR PRN PRN Reason: PAIN OR TEMP >100 Stop: 05/08/16 21:33 Last Admin: 03/12/16 09:37 Dose: 650 mg Acetaminophen/Codeine Phosphate (Tylenol W/Codeine #3) 1 tab PO Q4HR PRN PRN Reason: PAIN Stop: 05/08/16 21:33 Al Hydrox/Mg Hydrox/Simethicone (Maalox) 30 ml PO Q4HR PRN PRN Reason: Indigestion Stop: 05/08/16 21:33 Albuterol Sulfate (Albuterol 2.5mg/3ml Neb Ud) 2.5 mg IH Q2HR PRN PRN Reason: Shortness of Breath or Wheeze Stop: 05/08/16 21:37 Donepezil HCl (Aricept) 10 mg PO HS [facility] Stop: 05/09/16 20:59 Last Admin: 03/13/16 21:49 Dose: 10 mg Pantoprazole Sodium 80 mg/ (Sodium Chloride) 100 mls @ 10 mls/hr IV Q10H [facility] Stop: 05/08/16 21:44 Last Admin: 03/14/16 11:15 Dose: 10 mls/hr Potassium Chloride/Dextrose/Sod Cl (D5-0.45ns W/40 Meq Kcl) 1,000 mls @ 75 mls/ hr IV .[id number] [facility] Stop: 05/10/16 14:19 Last Admin: 03/13/16 22:39 Dose: 75 mls/hr Ceftriaxone Sodium 1 gm/ (Dextrose) 100 mls @ 100 mls/hr IV Q24H [facility] Stop: 05/11/16 12:59 Last Admin: 03/14/16 12:15 Dose: 100 mls/hr Meclizine HCl (Antivert) 25 mg PO DAILY PRN PRN Reason: Nausea / Vomiting Stop: 05/08/16 21:37 Metronidazole (Flagyl) 500 mg PO TID [facility] Stop: 03/19/16 13:59 Last Admin: 03/14/16 13:40 Dose: 500 mg Mirtazapine (Remeron) 7.5 mg PO HS [facility] PRN Reason: Protocol Stop: 05/09/16 20:59 Last Admin: 03/13/16 21:49 Dose: 7.5 mg Miscellaneous (Vte Chemical Prophylaxis Screen/ Admission) 1 ea [facility] PRN PRN PRN Reason: PROTOCOL Stop: 05/10/16 17:12 Ondansetron HCl (Zofran) 4 mg IV Q8H PRN PRN Reason: Nausea / Vomiting Stop: 05/08/16 21:37 Quetiapine Fumarate (Seroquel) 100 mg PO QPM [facility] PRN Reason: Protocol Stop: 05/09/16 16:59 Last Admin: 03/13/16 16:50 Dose: 100 mg Tamsulosin HCl (Flomax) 0.4 mg PO DAILY [facility] Stop: 05/09/16 08:59 Last Admin: 03/14/16 09:47 Dose: 0.4 mg General: alert HEENT: NC/AT, PERRLA Neck: Supple Lungs: CTAB Cardiovascular: RRR, Normal S1, Normal S2, without murmur Abdomen: soft non-tender, non-distended, positive bowel sound Neurological: no change - Procedures Procedures: Procedures Procedure Code Date GROUP PSYCHOTHERAPY 47598 06/08/03 INDIVID PSYCHOTHERAP NEC 94.39 06/08/03 OTHER GROUP THERAPY 94.44 06/08/03 Internal Medicine Assmt/Plan - Assessment Assessment: GI BLEED ANEMIA HYPOTENSION - Plan Plan: monitor h/h ivf for hydration cbc/bmp in am cont. ivabx
[2016-03-14] MEDS: D5-0.45NS w/40 mEq KCL 1,000 ML IV SCH (16:24)
[2016-03-15] MEDS: Pantoprazole 80 MG in Sodium Chloride 0.9% 100 ML IV SCH (05:02)
[2016-03-15 07:29] LABS: HEMATOCRIT 29.5 % (39.0-49.0); HEMOGLOBIN 9.8 gm/dL (12.6-17.4); MEAN CELL VOLUME 79.4 fl (80-99); MEAN CORPUSCULAR HEMOGLOBIN 26.3 pg (27.0-31.0); MEAN CORPUSCULAR HGB CONC 33.1 pg (28.0-36.0); MEAN PLATELET VOLUME 8.1 fl; PLATELET COUNT 366 Th/cmm (150-400); RED BLOOD COUNT 3.71 Mil/cmm (3.80-5.80); RED CELL DISTRIBUTION WIDTH 19.4 % (11.5-20.0); WHITE BLOOD COUNT 10.8 Th/cmm (4.8-10.8)
[2016-03-15 07:49] LABS: ANION GAP 5.7 (7.0-16.0); BUN - UREA NITROGEN 5 mg/dL (7-25); CALCIUM SERUM 8.4 mg/dL (8.6-10.3); CARBON DIOXIDE 24.9 mEq/L (21.0-31.0); CHLORIDE 108 mEq/L (98-107); GLUCOSE 105 mg/dL (70-105); POTASSIUM SERUM 3.6 mEq/L (3.5-5.1); SODIUM SERUM 135 mEq/L (136-145)
[2016-03-15 08:53] LABS: BAND NEUTROPHILE 2 % (0-10); EOSINOPHIL 6 % (0-5); NEUTROPHILS 78 % (40-80); TOTAL CELLS COUNTED 100
[2016-03-15 08:56] LABS: ANISOCYTOSIS 1+; MICROCYTOSIS 1+; PLATELET ESTIMATE ADEQUATE (NORMAL); PLATELET MORPHOLOGY NORMAL (NORMAL)
--- NOTE | 2016-03-15 12:41 | Internal Medicine Prog Note ---
Internal Medicine Subjective - Subjective Service Date: 03/15/16 Patient seen and examined:: with staff Patient is:: awake Per staff patient is:: no adverse event Internal Medicine Objective - Results Result Diagrams: 03/15/16 05:50 03/15/16 05:50 Recent Labs: Laboratory Last Values WBC 10.8 Th/cmm (4.8-10.8) 03/15/16 05:50 RBC 3.71 Mil/cmm (3.80-5.80) L 03/15/16 05:50 Hgb 9.8 gm/dL (12.6-17.4) L 03/15/16 05:50 Hct 29.5 % (39.0-49.0) L 03/15/16 05:50 MCV 79.4 fl (80-99) L 03/15/16 05:50 MCH 26.3 pg (27.0-31.0) L 03/15/16 05:50 MCHC Differential 33.1 pg (28.0-36.0) 03/15/16 05:50 RDW 19.4 % (11.5-20.0) 03/15/16 05:50 Plt Count 366 Th/cmm (150-400) 03/15/16 05:50 MPV 8.1 fl 03/15/16 05:50 Neutrophils % 67.4 % (40.0-80.0) 03/14/16 06:20 Band Neutrophils % 2 % (0-10) 03/15/16 05:50 Lymphocytes % 10.1 % (20.0-50.0) L 03/14/16 06:20 Monocytes % 9.5 % (2.0-10.0) 03/14/16 06:20 Eosinophils % 11.9 % (0.0-5.0) H 03/14/16 06:20 Basophils % 1.1 % (0.0-2.0) 03/14/16 06:20 Neutrophils (Manual) 78 % (40-80) 03/15/16 05:50 Lymphocytes 8 % (20-50) L 03/15/16 05:50 Monocytes 6 % (2-10) 03/15/16 05:50 Eosinophils 6 % (0-5) H 03/15/16 05:50 Basophils 1 % (0-3) 03/12/16 08:00 Platelet Estimate ADEQUATE (NORMAL) 03/15/16 05:50 Platelet Morphology NORMAL (NORMAL) 03/15/16 05:50 Anisocytosis 1+ 03/15/16 05:50 Microcytosis 1+ 03/15/16 05:50 RBC Morph Micro Appear ABNORMAL (NORMAL) 03/15/16 05:50 PT 10.8 SECONDS (9.5-11.5) 03/12/16 08:00 INR 1.08 (0.5-1.4) 03/12/16 08:00 PTT (Actin FS) 28.8 SECONDS (26.0-38.0) 03/10/16 04:30 Sodium 135 mEq/L (136-145) L 03/15/16 05:50 Potassium 3.6 mEq/L (3.5-5.1) 03/15/16 05:50 Chloride 108 mEq/L (98-107) H 03/15/16 05:50 Carbon Dioxide 24.9 mEq/L (21.0-31.0) 03/15/16 05:50 Anion Gap 5.7 (7.0-16.0) L 03/15/16 05:50 BUN 5 mg/dL (7-25) L 03/15/16 05:50 Creatinine 1.0 mg/dL (0.7-1.3) 03/15/16 05:50 Est GFR ( Amer) > 60.0 ml/min 03/15/16 05:50 Est GFR (Non-Af Amer) > 60.0 ml/min 03/15/16 05:50 BUN/Creatinine Ratio 5.0 03/15/16 05:50 Glucose 105 mg/dL (70-105) 03/15/16 05:50 Calcium 8.4 mg/dL (8.6-10.3) L 03/15/16 05:50 Magnesium 2.0 mg/dL (1.9-2.7) 03/11/16 06:30 Total Bilirubin 0.4 mg/dL (0.3-1.0) 03/13/16 06:03 AST 19 U/L (13-39) 03/13/16 06:03 ALT 11 U/L (7-52) 03/13/16 06:03 Alkaline Phosphatase 82 U/L (34-104) 03/13/16 06:03 Ammonia 41 umol/L (16-53) 03/10/16 04:30 B-Natriuretic Peptide 36.6 pg/mL (5.0-100.0) 03/10/16 04:30 Total Protein 6.6 gm/dL (6.0-8.3) 03/13/16 06:03 Albumin 2.6 gm/dL (4.2-5.5) L 03/13/16 06:03 Globulin 4.0 gm/dL 03/13/16 06:03 Albumin/Globulin Ratio 0.7 (1.0-1.8) L 03/13/16 06:03 Vitamin B12 389 pg/mL (211-946) 03/10/16 04:30 Folic Acid 13.3 ng/mL (>3.0) 03/10/16 04:30 TSH 2.57 uIU/ml (0.34-5.60) 03/10/16 04:30 Urine Source CATH 03/13/16 16:00 Urine Color YELLOW 03/13/16 16:00 Urine Clarity CLEAR (CLEAR) 03/13/16 16:00 Urine pH 5.5 03/13/16 16:00 Ur Specific [place] 1.010 (1.005-1.030) 03/13/16 16:00 Urine Protein NEGATIVE mg/dL (NEGATIVE) 03/13/16 16:00 Urine Glucose (UA) NEGATIVE mg/dL (NEGATIVE) 03/13/16 16:00 Urine Ketones NEGATIVE mg/dL (NEGATIVE) 03/13/16 16:00 Urine Blood LARGE (NEGATIVE) H 03/13/16 16:00 Urine Nitrate NEGATIVE (NEGATIVE) 03/13/16 16:00 Urine Bilirubin NEGATIVE (NEGATIVE) 03/13/16 16:00 Urine Urobilinogen 1.0 E.U./dL (0.2 - 1.0) 03/13/16 16:00 Ur Leukocyte Esterase TRACE (NEGATIVE) H 03/13/16 16:00 Urine RBC 10-25 /hpf (0-5) H 03/13/16 16:00 Urine WBC 6-10 /hpf (0-5) H 03/13/16 16:00 Ur Epithelial Cells FEW /lpf (FEW) 03/13/16 16:00 Urine Bacteria OCCASIONAL /hpf (NONE SEEN) 01/18/17 16:00 Blood Type B POSITIVE 03/09/16 19:31 Antibody Screen NEGATIVE 03/09/16 19:31 Crossmatch See Detail 03/09/16 19:31 - Physical Exam Vitals and I&O: Vital Signs Temp 98.2 F 03/15/16 08:00 Pulse 65 03/15/16 08:00 Resp 18 03/15/16 08:00 BP 92/43 03/15/16 08:00 Pulse Ox 97 03/15/16 08:00 Intake & Output 03/14/16 03/15/16 03/15/16 18:59 06:59 18:59 Intake Total 1200 100 Balance 1200 100 Intake: Intake, IV Amount 1200 100 D5-0.45NS w/40 mEq KCL 1, 1000 000 ml @ 75 mls/hr IV . [id number] [facility] Rx#:[id number] Pantoprazole 80 mg In 100 100 Sodium Chloride 0.9% 100 ml @ 10 mls/hr IV Q10H [facility] Rx#:[id number] cefTRIAXone 1 gm In 100 Dextrose 5% 100 ml @ 100 mls/hr IV Q24H [facility] Rx#: [id number] Active Medications: Current Medications Acetaminophen (Tylenol) 650 mg PO Q6HR PRN PRN Reason: PAIN OR TEMP >100 Stop: 05/08/16 21:33 Last Admin: 03/12/16 09:37 Dose: 650 mg Acetaminophen/Codeine Phosphate (Tylenol W/Codeine #3) 1 tab PO Q4HR PRN PRN Reason: PAIN Stop: 05/08/16 21:33 Al Hydrox/Mg Hydrox/Simethicone (Maalox) 30 ml PO Q4HR PRN PRN Reason: Indigestion Stop: 05/08/16 21:33 Albuterol Sulfate (Albuterol 2.5mg/3ml Neb Ud) 2.5 mg IH Q2HR PRN PRN Reason: Shortness of Breath or Wheeze Stop: 05/08/16 21:37 Donepezil HCl (Aricept) 10 mg PO HS [facility] Stop: 05/09/16 20:59 Last Admin: 03/14/16 20:45 Dose: 10 mg Pantoprazole Sodium 80 mg/ (Sodium Chloride) 100 mls @ 10 mls/hr IV Q10H [facility] Stop: 05/08/16 21:44 Last Admin: 03/15/16 05:02 Dose: 10 mls/hr Potassium Chloride/Dextrose/Sod Cl (D5-0.45ns W/40 Meq Kcl) 1,000 mls @ 75 mls/ hr IV .[id number] [facility] Stop: 05/10/16 14:19 Last Admin: 03/14/16 16:24 Dose: 75 mls/hr Ceftriaxone Sodium 1 gm/ (Dextrose) 100 mls @ 100 mls/hr IV Q24H [facility] Stop: 05/11/16 12:59 Last Infusion: 03/14/16 13:15 Dose: Infused Meclizine HCl (Antivert) 25 mg PO DAILY PRN PRN Reason: Nausea / Vomiting Stop: 05/08/16 21:37 Metronidazole (Flagyl) 500 mg PO TID [facility] Stop: 03/19/16 13:59 Last Admin: 03/15/16 09:09 Dose: Not Given Mirtazapine (Remeron) 7.5 mg PO HS [facility] PRN Reason: Protocol Stop: 05/09/16 20:59 Last Admin: 03/14/16 20:45 Dose: 7.5 mg Miscellaneous (Vte Chemical Prophylaxis Screen/ Admission) 1 ea [facility] PRN PRN PRN Reason: PROTOCOL Stop: 05/10/16 17:12 Ondansetron HCl (Zofran) 4 mg IV Q8H PRN PRN Reason: Nausea / Vomiting Stop: 05/08/16 21:37 Quetiapine Fumarate (Seroquel) 100 mg PO QPM [facility] PRN Reason: Protocol Stop: 05/09/16 16:59 Last Admin: 03/14/16 16:16 Dose: 100 mg Tamsulosin HCl (Flomax) 0.4 mg PO DAILY [facility] Stop: 05/09/16 08:59 Last Admin: 03/15/16 09:09 Dose: Not Given General: alert HEENT: NC/AT, PERRLA Neck: Supple Lungs: CTAB Cardiovascular: RRR, Normal S1, Normal S2, without murmur Abdomen: soft non-tender, non-distended, positive bowel sound Neurological: no change - Procedures Procedures: Procedures Procedure Code Date GROUP PSYCHOTHERAPY 27361 06/08/03 INDIVID PSYCHOTHERAP NEC 94.39 06/08/03 OTHER GROUP THERAPY 94.44 06/08/03 Internal Medicine Assmt/Plan - Assessment Assessment: GI BLEED ANEMIA HYPOTENSION - Plan Plan: ct guided biopsy today at [facility] [place] monitor h/h ivf for hydration cbc/bmp in am cont. ivabx
[2016-03-16 07:13] LABS: % BASOPHILS 0.5 % (0.0-2.0); % EOSINOPHILS 11.9 % (0.0-5.0); % MONOCYTES 6.4 % (2.0-10.0); % NEUTROPHILS 70.2 % (40.0-80.0); HEMATOCRIT 29.3 % (39.0-49.0); HEMOGLOBIN 9.8 gm/dL (12.6-17.4); MEAN CELL VOLUME 78.7 fl (80-99); MEAN CORPUSCULAR HEMOGLOBIN 26.3 pg (27.0-31.0); MEAN CORPUSCULAR HGB CONC 33.5 pg (28.0-36.0); MEAN PLATELET VOLUME 7.9 fl; NEUTROPHILE ABSOLUTE 7.8 Th/cmm (1.8-8.0); PLATELET COUNT 377 Th/cmm (150-400); RED BLOOD COUNT 3.73 Mil/cmm (3.80-5.80); RED CELL DISTRIBUTION WIDTH 19.3 % (11.5-20.0); WHITE BLOOD COUNT 11.1 Th/cmm (4.8-10.8)
[2016-03-16 07:22] LABS: ANION GAP 4.7 (7.0-16.0); BUN - UREA NITROGEN 5 mg/dL (7-25); CALCIUM SERUM 8.5 mg/dL (8.6-10.3); CARBON DIOXIDE 25.6 mEq/L (21.0-31.0); CHLORIDE 108 mEq/L (98-107); GLUCOSE 125 mg/dL (70-105); POTASSIUM SERUM 3.3 mEq/L (3.5-5.1); SODIUM SERUM 135 mEq/L (136-145)
--- NOTE | 2016-03-16 09:43 | Internal Medicine Prog Note ---
Internal Medicine Subjective - Subjective Patient seen and examined:: with staff, chart reviewed Patient is:: awake, verbal, interactive, in bed, talking Patient Complaints of:: bloated Per staff patient is:: no adverse event, noncompliant, confused Internal Medicine Objective - Results Result Diagrams: 03/16/16 06:45 03/16/16 06:45 Recent Labs: Laboratory Last Values WBC 11.1 Th/cmm (4.8-10.8) H 03/16/16 06:45 RBC 3.73 Mil/cmm (3.80-5.80) L 03/16/16 06:45 Hgb 9.8 gm/dL (12.6-17.4) L 03/16/16 06:45 Hct 29.3 % (39.0-49.0) L 03/16/16 06:45 MCV 78.7 fl (80-99) L 03/16/16 06:45 MCH 26.3 pg (27.0-31.0) L 03/16/16 06:45 MCHC Differential 33.5 pg (28.0-36.0) 03/16/16 06:45 RDW 19.3 % (11.5-20.0) 03/16/16 06:45 Plt Count 377 Th/cmm (150-400) 03/16/16 06:45 MPV 7.9 fl 03/16/16 06:45 Neutrophils % 70.2 % (40.0-80.0) 03/16/16 06:45 Band Neutrophils % 2 % (0-10) 03/15/16 05:50 Lymphocytes % 11.0 % (20.0-50.0) L 03/16/16 06:45 Monocytes % 6.4 % (2.0-10.0) 03/16/16 06:45 Eosinophils % 11.9 % (0.0-5.0) H 03/16/16 06:45 Basophils % 0.5 % (0.0-2.0) 03/16/16 06:45 Neutrophils (Manual) 78 % (40-80) 03/15/16 05:50 Lymphocytes 8 % (20-50) L 03/15/16 05:50 Monocytes 6 % (2-10) 03/15/16 05:50 Eosinophils 6 % (0-5) H 03/15/16 05:50 Basophils 1 % (0-3) 03/12/16 08:00 Platelet Estimate ADEQUATE (NORMAL) 03/15/16 05:50 Platelet Morphology NORMAL (NORMAL) 03/15/16 05:50 Anisocytosis 1+ 03/15/16 05:50 Microcytosis 1+ 03/15/16 05:50 RBC Morph Micro Appear ABNORMAL (NORMAL) 03/15/16 05:50 PT 10.8 SECONDS (9.5-11.5) 03/12/16 08:00 INR 1.08 (0.5-1.4) 03/12/16 08:00 PTT (Actin FS) 28.8 SECONDS (26.0-38.0) 03/10/16 04:30 Sodium 135 mEq/L (136-145) L 03/16/16 06:45 Potassium 3.3 mEq/L (3.5-5.1) L 03/16/16 06:45 Chloride 108 mEq/L (98-107) H 03/16/16 06:45 Carbon Dioxide 25.6 mEq/L (21.0-31.0) 03/16/16 06:45 Anion Gap 4.7 (7.0-16.0) L 03/16/16 06:45 BUN 5 mg/dL (7-25) L 03/16/16 06:45 Creatinine 1.0 mg/dL (0.7-1.3) 03/16/16 06:45 Est GFR ( Amer) > 60.0 ml/min 03/16/16 06:45 Est GFR (Non-Af Amer) > 60.0 ml/min 03/16/16 06:45 BUN/Creatinine Ratio 5.0 03/16/16 06:45 Glucose 125 mg/dL (70-105) H 03/16/16 06:45 Calcium 8.5 mg/dL (8.6-10.3) L 03/16/16 06:45 Magnesium 2.0 mg/dL (1.9-2.7) 03/11/16 06:30 Total Bilirubin 0.4 mg/dL (0.3-1.0) 03/13/16 06:03 AST 19 U/L (13-39) 03/13/16 06:03 ALT 11 U/L (7-52) 03/13/16 06:03 Alkaline Phosphatase 82 U/L (34-104) 03/13/16 06:03 Ammonia 41 umol/L (16-53) 03/10/16 04:30 B-Natriuretic Peptide 36.6 pg/mL (5.0-100.0) 03/10/16 04:30 Total Protein 6.6 gm/dL (6.0-8.3) 03/13/16 06:03 Albumin 2.6 gm/dL (4.2-5.5) L 03/13/16 06:03 Globulin 4.0 gm/dL 03/13/16 06:03 Albumin/Globulin Ratio 0.7 (1.0-1.8) L 03/13/16 06:03 Vitamin B12 389 pg/mL (211-946) 03/10/16 04:30 Folic Acid 13.3 ng/mL (>3.0) 03/10/16 04:30 TSH 2.57 uIU/ml (0.34-5.60) 03/10/16 04:30 Urine Source CATH 03/13/16 16:00 Urine Color YELLOW 03/13/16 16:00 Urine Clarity CLEAR (CLEAR) 03/13/16 16:00 Urine pH 5.5 03/13/16 16:00 Ur Specific [place] 1.010 (1.005-1.030) 03/13/16 16:00 Urine Protein NEGATIVE mg/dL (NEGATIVE) 03/13/16 16:00 Urine Glucose (UA) NEGATIVE mg/dL (NEGATIVE) 03/13/16 16:00 Urine Ketones NEGATIVE mg/dL (NEGATIVE) 03/13/16 16:00 Urine Blood LARGE (NEGATIVE) H 03/13/16 16:00 Urine Nitrate NEGATIVE (NEGATIVE) 03/13/16 16:00 Urine Bilirubin NEGATIVE (NEGATIVE) 03/13/16 16:00 Urine Urobilinogen 1.0 E.U./dL (0.2 - 1.0) 03/13/16 16:00 Ur Leukocyte Esterase TRACE (NEGATIVE) H 03/13/16 16:00 Urine RBC 10-25 /hpf (0-5) H 03/13/16 16:00 Urine WBC 6-10 /hpf (0-5) H 03/13/16 16:00 Ur Epithelial Cells FEW /lpf (FEW) 03/13/16 16:00 Urine Bacteria OCCASIONAL /hpf (NONE SEEN) 03/13/16 16:00 Blood Type B POSITIVE 03/09/16 19:31 Antibody Screen NEGATIVE 03/09/16 19:31 Crossmatch See Detail 03/09/16 19:31 - Physical Exam Vitals and I&O: Vital Signs Temp 97.6 F 03/16/16 08:00 Pulse 83 03/16/16 08:00 Resp 18 03/16/16 08:00 BP 122/61 03/16/16 08:00 Pulse Ox 99 03/16/16 08:00 Intake & Output 03/15/16 03/16/16 03/16/16 18:59 06:59 18:59 Intake Total 300 Balance 300 Intake: Oral 300 Active Medications: Current Medications Acetaminophen (Tylenol) 650 mg PO Q6HR PRN PRN Reason: PAIN OR TEMP >100 Stop: 05/08/16 21:33 Last Admin: 03/12/16 09:37 Dose: 650 mg Acetaminophen/Codeine Phosphate (Tylenol W/Codeine #3) 1 tab PO Q4HR PRN PRN Reason: PAIN Stop: 05/08/16 21:33 Al Hydrox/Mg Hydrox/Simethicone (Maalox) 30 ml PO Q4HR PRN PRN Reason: Indigestion Stop: 05/08/16 21:33 Albuterol Sulfate (Albuterol 2.5mg/3ml Neb Ud) 2.5 mg IH Q2HR PRN PRN Reason: Shortness of Breath or Wheeze Stop: 05/08/16 21:37 Donepezil HCl (Aricept) 10 mg PO HS [facility] Stop: 05/09/16 20:59 Last Admin: 03/15/16 20:41 Dose: 10 mg Pantoprazole Sodium 80 mg/ (Sodium Chloride) 100 mls @ 10 mls/hr IV Q10H [facility] Stop: 05/08/16 21:44 Last Admin: 03/15/16 05:02 Dose: 10 mls/hr Potassium Chloride/Dextrose/Sod Cl (D5-0.45ns W/40 Meq Kcl) 1,000 mls @ 75 mls/ hr IV .[id number] [facility] Stop: 05/10/16 14:19 Last Admin: 03/14/16 16:24 Dose: 75 mls/hr Ceftriaxone Sodium 1 gm/ (Dextrose) 100 mls @ 100 mls/hr IV Q24H [facility] Stop: 05/11/16 12:59 Last Admin: 03/15/16 13:00 Dose: Not Given Meclizine HCl (Antivert) 25 mg PO DAILY PRN PRN Reason: Nausea / Vomiting Stop: 05/08/16 21:37 Metronidazole (Flagyl) 500 mg PO TID [facility] Stop: 03/19/16 13:59 Last Admin: 03/16/16 08:52 Dose: 500 mg Mirtazapine (Remeron) 7.5 mg PO HS [facility] PRN Reason: Protocol Stop: 05/09/16 20:59 Last Admin: 03/15/16 20:41 Dose: 7.5 mg Miscellaneous (Vte Chemical Prophylaxis Screen/ Admission) 1 ea [facility] PRN PRN PRN Reason: PROTOCOL Stop: 05/10/16 17:12 Ondansetron HCl (Zofran) 4 mg IV Q8H PRN PRN Reason: Nausea / Vomiting Stop: 05/08/16 21:37 Quetiapine Fumarate (Seroquel) 100 mg PO QPM [facility] PRN Reason: Protocol Stop: 05/09/16 16:59 Last Admin: 03/15/16 16:25 Dose: 100 mg Tamsulosin HCl (Flomax) 0.4 mg PO DAILY [facility] Stop: 05/09/16 08:59 Last Admin: 03/16/16 08:52 Dose: 0.4 mg General: lethargic, demented HEENT: NC/AT, PERRLA Neck: Supple, No JVD Lungs: CTAB Cardiovascular: RRR, Normal S1 Abdomen: soft non-tender, globular, distended, positive bowel sound Extremities: excoriation, contracture Neurological: no change - Procedures Procedures: Procedures Procedure Code Date EGD BIOPSY SINGLE/MULTIPLE 69577 03/10/16 EXCISION OF STOMACH, ENDO, DIAGN [id number] 03/10/16 GROUP PSYCHOTHERAPY 89782 06/08/03 INDIVID PSYCHOTHERAP NEC 94.39 06/08/03 OTHER GROUP THERAPY 94.44 06/08/03 Internal Medicine Assmt/Plan - Assessment Assessment: colon mass GI BLEED ANEMIA HYPOTENSION leukocytosis malnutrition - Plan Plan: follow colon biopsy cont on iv fluid abx check culture id and gi follow up dw rn check labs
[2016-03-16] MEDS ORDERED: Potassium Chloride 20 mEq ER Tab PO ONE (10:00)
[2016-03-16] MEDS: Pantoprazole 80 MG in Sodium Chloride 0.9% 100 ML IV SCH ×2 (12:03→20:52)
--- NOTE | 2016-03-16 12:03 | Diagnostic Imaging Report ---
CT-guided biopsy HISTORY: Mass. Total DLP equals 381 CTDI equals 28.[address] guidance and sterile technique, 4, 18-gauge core biopsy samples were obtained from the previously reported pelvic mass. Specimen submitted for histologic evaluation. The patient tolerated the procedure with no immediate apparent clinical complications. IMPRESSION: CT-guided biopsy as noted above
--- NOTE | 2016-03-16 14:10 | Infectious Disease Prog Note ---
Infectious Disease Subjective - Review of Systems Service Date: 03/16/16 Subjective: No new change. Infectious Disease Objective - Results Result Diagrams: 03/16/16 06:45 03/16/16 06:45 Recent Labs: Laboratory Last Values WBC 11.1 Th/cmm (4.8-10.8) H 03/16/16 06:45 RBC 3.73 Mil/cmm (3.80-5.80) L 03/16/16 06:45 Hgb 9.8 gm/dL (12.6-17.4) L 03/16/16 06:45 Hct 29.3 % (39.0-49.0) L 03/16/16 06:45 MCV 78.7 fl (80-99) L 03/16/16 06:45 MCH 26.3 pg (27.0-31.0) L 03/16/16 06:45 MCHC Differential 33.5 pg (28.0-36.0) 03/16/16 06:45 RDW 19.3 % (11.5-20.0) 03/16/16 06:45 Plt Count 377 Th/cmm (150-400) 03/16/16 06:45 MPV 7.9 fl 03/16/16 06:45 Neutrophils % 70.2 % (40.0-80.0) 03/16/16 06:45 Band Neutrophils % 2 % (0-10) 03/15/16 05:50 Lymphocytes % 11.0 % (20.0-50.0) L 03/16/16 06:45 Monocytes % 6.4 % (2.0-10.0) 03/16/16 06:45 Eosinophils % 11.9 % (0.0-5.0) H 03/16/16 06:45 Basophils % 0.5 % (0.0-2.0) 03/16/16 06:45 Neutrophils (Manual) 78 % (40-80) 03/15/16 05:50 Lymphocytes 8 % (20-50) L 03/15/16 05:50 Monocytes 6 % (2-10) 03/15/16 05:50 Eosinophils 6 % (0-5) H 03/15/16 05:50 Basophils 1 % (0-3) 03/12/16 08:00 Platelet Estimate ADEQUATE (NORMAL) 03/15/16 05:50 Platelet Morphology NORMAL (NORMAL) 03/15/16 05:50 Anisocytosis 1+ 03/15/16 05:50 Microcytosis 1+ 03/15/16 05:50 RBC Morph Micro Appear ABNORMAL (NORMAL) 03/15/16 05:50 PT 10.8 SECONDS (9.5-11.5) 03/12/16 08:00 INR 1.08 (0.5-1.4) 03/12/16 08:00 PTT (Actin FS) 28.8 SECONDS (26.0-38.0) 03/10/16 04:30 Sodium 135 mEq/L (136-145) L 03/16/16 06:45 Potassium 3.3 mEq/L (3.5-5.1) L 03/16/16 06:45 Chloride 108 mEq/L (98-107) H 03/16/16 06:45 Carbon Dioxide 25.6 mEq/L (21.0-31.0) 03/16/16 06:45 Anion Gap 4.7 (7.0-16.0) L 03/16/16 06:45 BUN 5 mg/dL (7-25) L 03/16/16 06:45 Creatinine 1.0 mg/dL (0.7-1.3) 03/16/16 06:45 Est GFR ( Amer) > 60.0 ml/min 03/16/16 06:45 Est GFR (Non-Af Amer) > 60.0 ml/min 03/16/16 06:45 BUN/Creatinine Ratio 5.0 03/16/16 06:45 Glucose 125 mg/dL (70-105) H 03/16/16 06:45 Calcium 8.5 mg/dL (8.6-10.3) L 03/16/16 06:45 Magnesium 2.0 mg/dL (1.9-2.7) 03/11/16 06:30 Total Bilirubin 0.4 mg/dL (0.3-1.0) 03/13/16 06:03 AST 19 U/L (13-39) 03/13/16 06:03 ALT 11 U/L (7-52) 03/13/16 06:03 Alkaline Phosphatase 82 U/L (34-104) 03/13/16 06:03 Ammonia 41 umol/L (16-53) 03/10/16 04:30 B-Natriuretic Peptide 36.6 pg/mL (5.0-100.0) 03/10/16 04:30 Total Protein 6.6 gm/dL (6.0-8.3) 03/13/16 06:03 Albumin 2.6 gm/dL (4.2-5.5) L 03/13/16 06:03 Globulin 4.0 gm/dL 03/13/16 06:03 Albumin/Globulin Ratio 0.7 (1.0-1.8) L 03/13/16 06:03 Vitamin B12 389 pg/mL (211-946) 03/10/16 04:30 Folic Acid 13.3 ng/mL (>3.0) 03/10/16 04:30 TSH 2.57 uIU/ml (0.34-5.60) 03/10/16 04:30 Urine Source CATH 03/13/16 16:00 Urine Color YELLOW 03/13/16 16:00 Urine Clarity CLEAR (CLEAR) 03/13/16 16:00 Urine pH 5.5 03/13/16 16:00 Ur Specific [place] 1.010 (1.005-1.030) 03/13/16 16:00 Urine Protein NEGATIVE mg/dL (NEGATIVE) 03/13/16 16:00 Urine Glucose (UA) NEGATIVE mg/dL (NEGATIVE) 03/13/16 16:00 Urine Ketones NEGATIVE mg/dL (NEGATIVE) 03/13/16 16:00 Urine Blood LARGE (NEGATIVE) H 03/13/16 16:00 Urine Nitrate NEGATIVE (NEGATIVE) 03/13/16 16:00 Urine Bilirubin NEGATIVE (NEGATIVE) 03/13/16 16:00 Urine Urobilinogen 1.0 E.U./dL (0.2 - 1.0) 03/13/16 16:00 Ur Leukocyte Esterase TRACE (NEGATIVE) H 03/13/16 16:00 Urine RBC 10-25 /hpf (0-5) H 03/13/16 16:00 Urine WBC 6-10 /hpf (0-5) H 03/13/16 16:00 Ur Epithelial Cells FEW /lpf (FEW) 03/13/16 16:00 Urine Bacteria OCCASIONAL /hpf (NONE SEEN) 03/13/16 16:00 Blood Type B POSITIVE 03/09/16 19:31 Antibody Screen NEGATIVE 03/09/16 19:31 Crossmatch See Detail 03/09/16 19:31 - Physical Exam Vitals and I&O: Vital Signs Temp 97.6 F 03/16/16 08:00 Pulse 83 03/16/16 08:00 Resp 18 03/16/16 08:00 BP 122/61 03/16/16 08:00 Pulse Ox 99 03/16/16 08:00 Intake & Output 03/15/16 03/16/16 03/16/16 18:59 06:59 18:59 Intake Total 100 300 Balance 100 300 Intake: Intake, IV Amount 100 Pantoprazole 80 mg In 100 Sodium Chloride 0.9% 100 ml @ 10 mls/hr IV Q10H [facility] Rx#:[id number] Oral 300 Active Medications: Current Medications Acetaminophen (Tylenol) 650 mg PO Q6HR PRN PRN Reason: PAIN OR TEMP >100 Stop: 05/08/16 21:33 Last Admin: 03/12/16 09:37 Dose: 650 mg Acetaminophen/Codeine Phosphate (Tylenol W/Codeine #3) 1 tab PO Q4HR PRN PRN Reason: PAIN Stop: 05/08/16 21:33 Al Hydrox/Mg Hydrox/Simethicone (Maalox) 30 ml PO Q4HR PRN PRN Reason: Indigestion Stop: 05/08/16 21:33 Albuterol Sulfate (Albuterol 2.5mg/3ml Neb Ud) 2.5 mg IH Q2HR PRN PRN Reason: Shortness of Breath or Wheeze Stop: 05/08/16 21:37 Donepezil HCl (Aricept) 10 mg PO HS [facility] Stop: 05/09/16 20:59 Last Admin: 03/15/16 20:41 Dose: 10 mg Pantoprazole Sodium 80 mg/ (Sodium Chloride) 100 mls @ 10 mls/hr IV Q10H [facility] Stop: 05/08/16 21:44 Last Admin: 03/16/16 12:03 Dose: 10 mls/hr Potassium Chloride/Dextrose/Sod Cl (D5-0.45ns W/40 Meq Kcl) 1,000 mls @ 75 mls/ hr IV .[id number] AMAURI Stop: 05/10/16 14:19 Last Admin: 01/19/17 16:24 Dose: 75 mls/hr Ceftriaxone Sodium 1 gm/ (Dextrose) 100 mls @ 100 mls/hr IV Q24H [facility] Stop: 05/11/16 12:59 Last Admin: 03/16/16 12:14 Dose: 100 mls/hr Meclizine HCl (Antivert) 25 mg PO DAILY PRN PRN Reason: Nausea / Vomiting Stop: 05/08/16 21:37 Metronidazole (Flagyl) 500 mg PO TID [facility] Stop: 03/19/16 13:59 Last Admin: 03/16/16 13:54 Dose: 500 mg Mirtazapine (Remeron) 7.5 mg PO HS [facility] PRN Reason: Protocol Stop: 05/09/16 20:59 Last Admin: 03/15/16 20:41 Dose: 7.5 mg Miscellaneous (Vte Chemical Prophylaxis Screen/ Admission) 1 ea [facility] PRN PRN PRN Reason: PROTOCOL Stop: 05/10/16 17:12 Ondansetron HCl (Zofran) 4 mg IV Q8H PRN PRN Reason: Nausea / Vomiting Stop: 05/08/16 21:37 Quetiapine Fumarate (Seroquel) 100 mg PO QPM [facility] PRN Reason: Protocol Stop: 05/09/16 16:59 Last Admin: 03/15/16 16:25 Dose: 100 mg Tamsulosin HCl (Flomax) 0.4 mg PO DAILY [facility] Stop: 05/09/16 08:59 Last Admin: 03/16/16 08:52 Dose: 0.4 mg General: no acute distress, well developed, well nourished HEENT: atraumatic, normocephalic, PERRLA, EOMI Neck: supple Cardiovascular: S1S2, regular Lungs: clear to auscultation bilaterally, clear to percussion Abdomen: soft, no tender, no distended Extremities: no cyanosis, no clubbing, no edema Neurological: awake, alert Skin: intact - Procedures Procedures: Procedures Procedure Code Date EGD BIOPSY SINGLE/MULTIPLE 22294 03/10/16 EXCISION OF STOMACH, ENDO, DIAGN [id number] 03/10/16 GROUP PSYCHOTHERAPY [id number] 06/08/03 INDIVID PSYCHOTHERAP NEC 94.39 06/08/03 OTHER GROUP THERAPY 94.44 06/08/03 Infectious Disease Assmt/Plan - Problem List Patient Problems: All Active Problems BLOOD CLOT IN STOOL (Acute) - Assessment Assessment: Impression: 1. Sepsis. resolving. 2, Intraabdominal mass? colon CA. associated colitis?. 3. GI Bleed 2/2 #2. 4. Dementia. 5. History of hypertension. RECOMMENDATIONS: Continue Rocephin empirically.
[2016-03-17 06:52] LABS: % BASOPHILS 0.3 % (0.0-2.0); % EOSINOPHILS 11.8 % (0.0-5.0); % LYMPHOCYTES 12.9 % (20.0-50.0); % MONOCYTES 8.2 % (2.0-10.0); % NEUTROPHILS 66.8 % (40.0-80.0); HEMOGLOBIN 9.7 gm/dL (12.6-17.4); MEAN CELL VOLUME 78.9 fl (80-99); MEAN CORPUSCULAR HEMOGLOBIN 26.4 pg (27.0-31.0); MEAN CORPUSCULAR HGB CONC 33.5 pg (28.0-36.0); MEAN PLATELET VOLUME 7.8 fl; NEUTROPHILE ABSOLUTE 8.5 Th/cmm (1.8-8.0); PLATELET COUNT 385 Th/cmm (150-400); RED BLOOD COUNT 3.68 Mil/cmm (3.80-5.80); RED CELL DISTRIBUTION WIDTH 19.8 % (11.5-20.0); WHITE BLOOD COUNT 12.6 Th/cmm (4.8-10.8)
--- NOTE | 2016-03-17 11:50 | Internal Medicine Prog Note ---
Internal Medicine Subjective - Subjective Patient seen and examined:: with staff, chart reviewed Patient is:: asleep, arousable, in bed Patient Complaints of:: congestion Per staff patient is:: no adverse event, confused Internal Medicine Objective - Results Result Diagrams: 03/17/16 06:19 03/16/16 06:45 Recent Labs: Laboratory Last Values WBC 12.6 Th/cmm (4.8-10.8) H 03/17/16 06:19 RBC 3.68 Mil/cmm (3.80-5.80) L 03/17/16 06:19 Hgb 9.7 gm/dL (12.6-17.4) L 03/17/16 06:19 Hct 29.0 % (39.0-49.0) L 03/17/16 06:19 MCV 78.9 fl (80-99) L 03/17/16 06:19 MCH 26.4 pg (27.0-31.0) L 03/17/16 06:19 MCHC Differential 33.5 pg (28.0-36.0) 03/17/16 06:19 RDW 19.8 % (11.5-20.0) 03/17/16 06:19 Plt Count 385 Th/cmm (150-400) 03/17/16 06:19 MPV 7.8 fl 03/17/16 06:19 Neutrophils % 66.8 % (40.0-80.0) 03/17/16 06:19 Band Neutrophils % 2 % (0-10) 03/15/16 05:50 Lymphocytes % 12.9 % (20.0-50.0) L 03/17/16 06:19 Monocytes % 8.2 % (2.0-10.0) 03/17/16 06:19 Eosinophils % 11.8 % (0.0-5.0) H 03/17/16 06:19 Basophils % 0.3 % (0.0-2.0) 03/17/16 06:19 Neutrophils (Manual) 78 % (40-80) 03/15/16 05:50 Lymphocytes 8 % (20-50) L 03/15/16 05:50 Monocytes 6 % (2-10) 03/15/16 05:50 Eosinophils 6 % (0-5) H 03/15/16 05:50 Basophils 1 % (0-3) 03/12/16 08:00 Platelet Estimate ADEQUATE (NORMAL) 03/15/16 05:50 Platelet Morphology NORMAL (NORMAL) 03/15/16 05:50 Anisocytosis 1+ 03/15/16 05:50 Microcytosis 1+ 03/15/16 05:50 RBC Morph Micro Appear ABNORMAL (NORMAL) 03/15/16 05:50 PT 10.8 SECONDS (9.5-11.5) 03/12/16 08:00 INR 1.08 (0.5-1.4) 03/12/16 08:00 PTT (Actin FS) 28.8 SECONDS (26.0-38.0) 03/10/16 04:30 Sodium 135 mEq/L (136-145) L 03/16/16 06:45 Potassium 3.3 mEq/L (3.5-5.1) L 03/16/16 06:45 Chloride 108 mEq/L (98-107) H 03/16/16 06:45 Carbon Dioxide 25.6 mEq/L (21.0-31.0) 03/16/16 06:45 Anion Gap 4.7 (7.0-16.0) L 03/16/16 06:45 BUN 5 mg/dL (7-25) L 03/16/16 06:45 Creatinine 1.0 mg/dL (0.7-1.3) 03/16/16 06:45 Est GFR ( Amer) > 60.0 ml/min 03/16/16 06:45 Est GFR (Non-Af Amer) > 60.0 ml/min 03/16/16 06:45 BUN/Creatinine Ratio 5.0 03/16/16 06:45 Glucose 125 mg/dL (70-105) H 03/16/16 06:45 Calcium 8.5 mg/dL (8.6-10.3) L 03/16/16 06:45 Magnesium 2.0 mg/dL (1.9-2.7) 03/11/16 06:30 Total Bilirubin 0.4 mg/dL (0.3-1.0) 03/13/16 06:03 AST 19 U/L (13-39) 03/13/16 06:03 ALT 11 U/L (7-52) 03/13/16 06:03 Alkaline Phosphatase 82 U/L (34-104) 03/13/16 06:03 Ammonia 41 umol/L (16-53) 03/10/16 04:30 B-Natriuretic Peptide 36.6 pg/mL (5.0-100.0) 03/10/16 04:30 Total Protein 6.6 gm/dL (6.0-8.3) 03/13/16 06:03 Albumin 2.6 gm/dL (4.2-5.5) L 03/13/16 06:03 Globulin 4.0 gm/dL 03/13/16 06:03 Albumin/Globulin Ratio 0.7 (1.0-1.8) L 03/13/16 06:03 Vitamin B12 389 pg/mL (211-946) 03/10/16 04:30 Folic Acid 13.3 ng/mL (>3.0) 03/10/16 04:30 TSH 2.57 uIU/ml (0.34-5.60) 03/10/16 04:30 Urine Source CATH 03/13/16 16:00 Urine Color YELLOW 03/13/16 16:00 Urine Clarity CLEAR (CLEAR) 03/13/16 16:00 Urine pH 5.5 03/13/16 16:00 Ur Specific [place] 1.010 (1.005-1.030) 03/13/16 16:00 Urine Protein NEGATIVE mg/dL (NEGATIVE) 03/13/16 16:00 Urine Glucose (UA) NEGATIVE mg/dL (NEGATIVE) 03/13/16 16:00 Urine Ketones NEGATIVE mg/dL (NEGATIVE) 03/13/16 16:00 Urine Blood LARGE (NEGATIVE) H 03/13/16 16:00 Urine Nitrate NEGATIVE (NEGATIVE) 03/13/16 16:00 Urine Bilirubin NEGATIVE (NEGATIVE) 03/13/16 16:00 Urine Urobilinogen 1.0 E.U./dL (0.2 - 1.0) 03/13/16 16:00 Ur Leukocyte Esterase TRACE (NEGATIVE) H 03/13/16 16:00 Urine RBC 10-25 /hpf (0-5) H 03/13/16 16:00 Urine WBC 6-10 /hpf (0-5) H 03/13/16 16:00 Ur Epithelial Cells FEW /lpf (FEW) 03/13/16 16:00 Urine Bacteria OCCASIONAL /hpf (NONE SEEN) 03/13/16 16:00 Blood Type B POSITIVE 03/09/16 19:31 Antibody Screen NEGATIVE 03/09/16 19:31 Crossmatch See Detail 03/09/16 19:31 - Physical Exam Vitals and I&O: Vital Signs Temp 96.9 F 03/17/16 07:44 Pulse 60 03/17/16 07:44 Resp 18 03/17/16 08:00 BP 117/71 03/17/16 07:44 Pulse Ox 95 03/17/16 07:44 Intake & Output 03/16/16 03/17/16 03/17/16 18:59 06:59 18:59 Intake Total 100 88.167 Balance 100 88.167 Intake: Intake, IV Amount 100 88.167 Pantoprazole 80 mg In 88.167 Sodium Chloride 0.9% 100 ml @ 10 mls/hr IV Q10H [facility] Rx#:[id number] cefTRIAXone 1 gm In 100 Dextrose 5% 100 ml @ 100 mls/hr IV Q24H [facility] Rx#: [id number] Active Medications: Current Medications Acetaminophen (Tylenol) 650 mg PO Q6HR PRN PRN Reason: PAIN OR TEMP >100 Stop: 05/08/16 21:33 Last Admin: 03/12/16 09:37 Dose: 650 mg Acetaminophen/Codeine Phosphate (Tylenol W/Codeine #3) 1 tab PO Q4HR PRN PRN Reason: PAIN Stop: 05/08/16 21:33 Al Hydrox/Mg Hydrox/Simethicone (Maalox) 30 ml PO Q4HR PRN PRN Reason: Indigestion Stop: 05/08/16 21:33 Albuterol Sulfate (Albuterol 2.5mg/3ml Neb Ud) 2.5 mg IH Q2HR PRN PRN Reason: Shortness of Breath or Wheeze Stop: 05/08/16 21:37 Donepezil HCl (Aricept) 10 mg PO HS [facility] Stop: 05/09/16 20:59 Last Admin: 03/16/16 20:58 Dose: 10 mg Pantoprazole Sodium 80 mg/ (Sodium Chloride) 100 mls @ 10 mls/hr IV Q10H [facility] Stop: 05/08/16 21:44 Last Admin: 03/16/16 20:52 Dose: 10 mls/hr Potassium Chloride/Dextrose/Sod Cl (D5-0.45ns W/40 Meq Kcl) 1,000 mls @ 75 mls/ hr IV .[id number] [facility] Stop: 05/10/16 14:19 Last Admin: 03/14/16 16:24 Dose: 75 mls/hr Ceftriaxone Sodium 1 gm/ (Dextrose) 100 mls @ 100 mls/hr IV Q24H [facility] Stop: 05/11/16 12:59 Last Infusion: 03/16/16 13:20 Dose: Infused Meclizine HCl (Antivert) 25 mg PO DAILY PRN PRN Reason: Nausea / Vomiting Stop: 05/08/16 21:37 Metronidazole (Flagyl) 500 mg PO TID [facility] Stop: 03/19/16 13:59 Last Admin: 03/17/16 08:11 Dose: 500 mg Mirtazapine (Remeron) 7.5 mg PO HS [facility] PRN Reason: Protocol Stop: 05/09/16 20:59 Last Admin: 03/16/16 20:57 Dose: 7.5 mg Miscellaneous (Vte Chemical Prophylaxis Screen/ Admission) 1 ea [facility] PRN PRN PRN Reason: PROTOCOL Stop: 05/10/16 17:12 Ondansetron HCl (Zofran) 4 mg IV Q8H PRN PRN Reason: Nausea / Vomiting Stop: 05/08/16 21:37 Quetiapine Fumarate (Seroquel) 100 mg PO QPM [facility] PRN Reason: Protocol Stop: 05/09/16 16:59 Last Admin: 03/16/16 16:28 Dose: 100 mg Tamsulosin HCl (Flomax) 0.4 mg PO DAILY [facility] Stop: 05/09/16 08:59 Last Admin: 03/17/16 08:11 Dose: 0.4 mg General: lethargic, demented HEENT: NC/AT, PERRLA Neck: Supple, No JVD Lungs: congested Cardiovascular: RRR, Normal S1, Normal S2 Abdomen: soft non-tender, globular, non-distended, positive bowel sound Extremities: excoriation Neurological: no change - Procedures Procedures: Procedures Procedure Code Date EGD BIOPSY SINGLE/MULTIPLE 82023 03/10/16 EXCISION OF STOMACH, ENDO, DIAGN [id number] 03/10/16 GROUP PSYCHOTHERAPY 25471 06/08/03 INDIVID PSYCHOTHERAP NEC 94.39 06/08/03 OTHER GROUP THERAPY 94.44 06/08/03 Internal Medicine Assmt/Plan - Assessment Assessment: colon mass GI BLEED ANEMIA HYPOTENSION leukocytosis malnutrition - Plan Plan: follow colon biopsy cont on iv fluid abx check culture id and gi follow up dw rn check labs
[2016-03-17] MEDS: Pantoprazole 80 MG in Sodium Chloride 0.9% 100 ML IV SCH (15:13)
[2016-03-17] MEDS: D5-0.45NS w/40 mEq KCL 1,000 ML IV SCH (15:14)
[2016-03-18] MEDS: D5-0.45NS w/40 mEq KCL 1,000 ML IV SCH (05:58)
--- NOTE | 2016-03-18 11:37 | Infectious Disease Prog Note ---
Infectious Disease Subjective - Review of Systems Service Date: 03/18/16 Subjective: No new change. Infectious Disease Objective - Results Result Diagrams: 03/17/16 06:19 03/16/16 06:45 Recent Labs: Laboratory Last Values WBC 12.6 Th/cmm (4.8-10.8) H 03/17/16 06:19 RBC 3.68 Mil/cmm (3.80-5.80) L 03/17/16 06:19 Hgb 9.7 gm/dL (12.6-17.4) L 03/17/16 06:19 Hct 29.0 % (39.0-49.0) L 03/17/16 06:19 MCV 78.9 fl (80-99) L 03/17/16 06:19 MCH 26.4 pg (27.0-31.0) L 03/17/16 06:19 MCHC Differential 33.5 pg (28.0-36.0) 03/17/16 06:19 RDW 19.8 % (11.5-20.0) 03/17/16 06:19 Plt Count 385 Th/cmm (150-400) 03/17/16 06:19 MPV 7.8 fl 03/17/16 06:19 Neutrophils % 66.8 % (40.0-80.0) 03/17/16 06:19 Band Neutrophils % 2 % (0-10) 03/15/16 05:50 Lymphocytes % 12.9 % (20.0-50.0) L 03/17/16 06:19 Monocytes % 8.2 % (2.0-10.0) 03/17/16 06:19 Eosinophils % 11.8 % (0.0-5.0) H 03/17/16 06:19 Basophils % 0.3 % (0.0-2.0) 03/17/16 06:19 Neutrophils (Manual) 78 % (40-80) 03/15/16 05:50 Lymphocytes 8 % (20-50) L 03/15/16 05:50 Monocytes 6 % (2-10) 03/15/16 05:50 Eosinophils 6 % (0-5) H 03/15/16 05:50 Basophils 1 % (0-3) 03/12/16 08:00 Platelet Estimate ADEQUATE (NORMAL) 03/15/16 05:50 Platelet Morphology NORMAL (NORMAL) 03/15/16 05:50 Anisocytosis 1+ 03/15/16 05:50 Microcytosis 1+ 03/15/16 05:50 RBC Morph Micro Appear ABNORMAL (NORMAL) 03/15/16 05:50 PT 10.8 SECONDS (9.5-11.5) 03/12/16 08:00 INR 1.08 (0.5-1.4) 03/12/16 08:00 PTT (Actin FS) 28.8 SECONDS (26.0-38.0) 03/10/16 04:30 Sodium 135 mEq/L (136-145) L 03/16/16 06:45 Potassium 3.3 mEq/L (3.5-5.1) L 03/16/16 06:45 Chloride 108 mEq/L (98-107) H 03/16/16 06:45 Carbon Dioxide 25.6 mEq/L (21.0-31.0) 03/16/16 06:45 Anion Gap 4.7 (7.0-16.0) L 03/16/16 06:45 BUN 5 mg/dL (7-25) L 03/16/16 06:45 Creatinine 1.0 mg/dL (0.7-1.3) 03/16/16 06:45 Est GFR ( Amer) > 60.0 ml/min 03/16/16 06:45 Est GFR (Non-Af Amer) > 60.0 ml/min 03/16/16 06:45 BUN/Creatinine Ratio 5.0 03/16/16 06:45 Glucose 125 mg/dL (70-105) H 03/16/16 06:45 Calcium 8.5 mg/dL (8.6-10.3) L 03/16/16 06:45 Magnesium 2.0 mg/dL (1.9-2.7) 03/11/16 06:30 Total Bilirubin 0.4 mg/dL (0.3-1.0) 03/13/16 06:03 AST 19 U/L (13-39) 03/13/16 06:03 ALT 11 U/L (7-52) 03/13/16 06:03 Alkaline Phosphatase 82 U/L (34-104) 03/13/16 06:03 Ammonia 41 umol/L (16-53) 03/10/16 04:30 B-Natriuretic Peptide 36.6 pg/mL (5.0-100.0) 03/10/16 04:30 Total Protein 6.6 gm/dL (6.0-8.3) 03/13/16 06:03 Albumin 2.6 gm/dL (4.2-5.5) L 03/13/16 06:03 Globulin 4.0 gm/dL 03/13/16 06:03 Albumin/Globulin Ratio 0.7 (1.0-1.8) L 03/13/16 06:03 Vitamin B12 389 pg/mL (211-946) 03/10/16 04:30 Folic Acid 13.3 ng/mL (>3.0) 03/10/16 04:30 TSH 2.57 uIU/ml (0.34-5.60) 03/10/16 04:30 Urine Source CATH 03/13/16 16:00 Urine Color YELLOW 03/13/16 16:00 Urine Clarity CLEAR (CLEAR) 03/13/16 16:00 Urine pH 5.5 03/13/16 16:00 Ur Specific [place] 1.010 (1.005-1.030) 03/13/16 16:00 Urine Protein NEGATIVE mg/dL (NEGATIVE) 03/13/16 16:00 Urine Glucose (UA) NEGATIVE mg/dL (NEGATIVE) 03/13/16 16:00 Urine Ketones NEGATIVE mg/dL (NEGATIVE) 03/13/16 16:00 Urine Blood LARGE (NEGATIVE) H 03/13/16 16:00 Urine Nitrate NEGATIVE (NEGATIVE) 03/13/16 16:00 Urine Bilirubin NEGATIVE (NEGATIVE) 03/13/16 16:00 Urine Urobilinogen 1.0 E.U./dL (0.2 - 1.0) 03/13/16 16:00 Ur Leukocyte Esterase TRACE (NEGATIVE) H 03/13/16 16:00 Urine RBC 10-25 /hpf (0-5) H 03/13/16 16:00 Urine WBC 6-10 /hpf (0-5) H 03/13/16 16:00 Ur Epithelial Cells FEW /lpf (FEW) 03/13/16 16:00 Urine Bacteria OCCASIONAL /hpf (NONE SEEN) 03/13/16 16:00 Blood Type B POSITIVE 03/09/16 19:31 Antibody Screen NEGATIVE 03/09/16 19:31 Crossmatch See Detail 03/09/16 19:31 - Physical Exam Vitals and I&O: Vital Signs Temp 98.5 F 03/18/16 08:00 Pulse 54 03/18/16 08:00 Resp 17 03/18/16 08:00 BP 111/64 03/18/16 08:00 Pulse Ox 100 03/18/16 08:00 Intake & Output 03/17/16 03/18/16 03/18/16 18:59 06:59 18:59 Intake Total 100 1420 Balance 100 1420 Intake: Intake, IV Amount 100 1000 D5-0.45NS w/40 mEq KCL 1, 1000 000 ml @ 75 mls/hr IV . [id number] [facility] Rx#:[id number] cefTRIAXone 1 gm In 100 Dextrose 5% 100 ml @ 100 mls/hr IV Q24H [facility] Rx#: [id number] Oral 420 Other: # Voids 3 # Bowel Movements 2 Active Medications: Current Medications Acetaminophen (Tylenol) 650 mg PO Q6HR PRN PRN Reason: PAIN OR TEMP >100 Stop: 05/08/16 21:33 Last Admin: 03/12/16 09:37 Dose: 650 mg Acetaminophen/Codeine Phosphate (Tylenol W/Codeine #3) 1 tab PO Q4HR PRN PRN Reason: PAIN Stop: 05/08/16 21:33 Al Hydrox/Mg Hydrox/Simethicone (Maalox) 30 ml PO Q4HR PRN PRN Reason: Indigestion Stop: 05/08/16 21:33 Albuterol Sulfate (Albuterol 2.5mg/3ml Neb Ud) 2.5 mg IH Q2HR PRN PRN Reason: Shortness of Breath or Wheeze Stop: 05/08/16 21:37 Donepezil HCl (Aricept) 10 mg PO HS [facility] Stop: 05/09/16 20:59 Last Admin: 03/17/16 20:53 Dose: 10 mg Pantoprazole Sodium 80 mg/ (Sodium Chloride) 100 mls @ 10 mls/hr IV Q10H [facility] Stop: 05/08/16 21:44 Last Admin: 03/17/16 15:13 Dose: 10 mls/hr Potassium Chloride/Dextrose/Sod Cl (D5-0.45ns W/40 Meq Kcl) 1,000 mls @ 75 mls/ hr IV .[id number] [facility] Stop: 05/10/16 14:19 Last Admin: 03/18/16 05:58 Dose: 75 mls/hr Meclizine HCl (Antivert) 25 mg PO DAILY PRN PRN Reason: Nausea / Vomiting Stop: 05/08/16 21:37 Mirtazapine (Remeron) 7.5 mg PO HS [facility] PRN Reason: Protocol Stop: 05/09/16 20:59 Last Admin: 03/17/16 20:53 Dose: 7.5 mg Miscellaneous (Vte Chemical Prophylaxis Screen/ Admission) 1 ea [facility] PRN PRN PRN Reason: PROTOCOL Stop: 05/10/16 17:12 Ondansetron HCl (Zofran) 4 mg IV Q8H PRN PRN Reason: Nausea / Vomiting Stop: 05/08/16 21:37 Quetiapine Fumarate (Seroquel) 100 mg PO QPM [facility] PRN Reason: Protocol Stop: 05/09/16 16:59 Last Admin: 03/17/16 16:14 Dose: 100 mg Tamsulosin HCl (Flomax) 0.4 mg PO DAILY [facility] Stop: 05/09/16 08:59 Last Admin: 03/18/16 08:54 Dose: 0.4 mg General: no acute distress, well developed, well nourished HEENT: atraumatic, normocephalic, PERRLA, EOMI Neck: supple, no thyromegaly, no lymphadenopathy Cardiovascular: S1S2, regular Lungs: clear to auscultation bilaterally, clear to percussion Abdomen: soft, no tender, no distended Extremities: no cyanosis, no clubbing, no edema Neurological: awake, alert, oriented Skin: intact - Procedures Procedures: Procedures Procedure Code Date BIOPSY OF BOWEL 53061 03/10/16 EGD BIOPSY SINGLE/MULTIPLE 56491 03/10/16 EXCISION OF LARGE INTESTINE, PERCUTANEOUS APPROACH, DIAGN [id number] 03/10/16 EXCISION OF STOMACH, ENDO, DIAGN [id number] 03/10/16 GROUP PSYCHOTHERAPY 00240 06/08/03 INDIVID PSYCHOTHERAP NEC 94.39 06/08/03 OTHER GROUP THERAPY 94.44 06/08/03 Infectious Disease Assmt/Plan - Problem List Patient Problems: All Active Problems BLOOD CLOT IN STOOL (Acute) - Assessment Assessment: Impression: 1. Sepsis. resolving. 2, Intraabdominal mass? colon CA. associated colitis?. 3. GI Bleed 2/2 #2. 4. Dementia. 5. History of hypertension. RECOMMENDATIONS: Continue Rocephin empirically.
[2016-03-18] MEDS: Pantoprazole 80 MG in Sodium Chloride 0.9% 100 ML IV SCH ×2 (12:46→23:55)
--- NOTE | 2016-03-18 12:52 | Internal Medicine Prog Note ---
Internal Medicine Subjective - Subjective Service Date: 03/18/16 Patient seen and examined:: with staff Patient is:: awake, other (confused) Per staff patient is:: no adverse event Internal Medicine Objective - Results Result Diagrams: 03/17/16 06:19 03/16/16 06:45 Recent Labs: Laboratory Last Values WBC 12.6 Th/cmm (4.8-10.8) H 03/17/16 06:19 RBC 3.68 Mil/cmm (3.80-5.80) L 03/17/16 06:19 Hgb 9.7 gm/dL (12.6-17.4) L 03/17/16 06:19 Hct 29.0 % (39.0-49.0) L 03/17/16 06:19 MCV 78.9 fl (80-99) L 03/17/16 06:19 MCH 26.4 pg (27.0-31.0) L 03/17/16 06:19 MCHC Differential 33.5 pg (28.0-36.0) 03/17/16 06:19 RDW 19.8 % (11.5-20.0) 03/17/16 06:19 Plt Count 385 Th/cmm (150-400) 03/17/16 06:19 MPV 7.8 fl 03/17/16 06:19 Neutrophils % 66.8 % (40.0-80.0) 03/17/16 06:19 Band Neutrophils % 2 % (0-10) 03/15/16 05:50 Lymphocytes % 12.9 % (20.0-50.0) L 03/17/16 06:19 Monocytes % 8.2 % (2.0-10.0) 03/17/16 06:19 Eosinophils % 11.8 % (0.0-5.0) H 03/17/16 06:19 Basophils % 0.3 % (0.0-2.0) 03/17/16 06:19 Neutrophils (Manual) 78 % (40-80) 03/15/16 05:50 Lymphocytes 8 % (20-50) L 03/15/16 05:50 Monocytes 6 % (2-10) 03/15/16 05:50 Eosinophils 6 % (0-5) H 03/15/16 05:50 Basophils 1 % (0-3) 03/12/16 08:00 Platelet Estimate ADEQUATE (NORMAL) 03/15/16 05:50 Platelet Morphology NORMAL (NORMAL) 03/15/16 05:50 Anisocytosis 1+ 03/15/16 05:50 Microcytosis 1+ 03/15/16 05:50 RBC Morph Micro Appear ABNORMAL (NORMAL) 03/15/16 05:50 PT 10.8 SECONDS (9.5-11.5) 03/12/16 08:00 INR 1.08 (0.5-1.4) 03/12/16 08:00 PTT (Actin FS) 28.8 SECONDS (26.0-38.0) 03/10/16 04:30 Sodium 135 mEq/L (136-145) L 03/16/16 06:45 Potassium 3.3 mEq/L (3.5-5.1) L 03/16/16 06:45 Chloride 108 mEq/L (98-107) H 03/16/16 06:45 Carbon Dioxide 25.6 mEq/L (21.0-31.0) 03/16/16 06:45 Anion Gap 4.7 (7.0-16.0) L 03/16/16 06:45 BUN 5 mg/dL (7-25) L 03/16/16 06:45 Creatinine 1.0 mg/dL (0.7-1.3) 03/16/16 06:45 Est GFR ( Amer) > 60.0 ml/min 03/16/16 06:45 Est GFR (Non-Af Amer) > 60.0 ml/min 03/16/16 06:45 BUN/Creatinine Ratio 5.0 03/16/16 06:45 Glucose 125 mg/dL (70-105) H 03/16/16 06:45 Calcium 8.5 mg/dL (8.6-10.3) L 03/16/16 06:45 Magnesium 2.0 mg/dL (1.9-2.7) 03/11/16 06:30 Total Bilirubin 0.4 mg/dL (0.3-1.0) 03/13/16 06:03 AST 19 U/L (13-39) 03/13/16 06:03 ALT 11 U/L (7-52) 03/13/16 06:03 Alkaline Phosphatase 82 U/L (34-104) 03/13/16 06:03 Ammonia 41 umol/L (16-53) 03/10/16 04:30 B-Natriuretic Peptide 36.6 pg/mL (5.0-100.0) 03/10/16 04:30 Total Protein 6.6 gm/dL (6.0-8.3) 03/13/16 06:03 Albumin 2.6 gm/dL (4.2-5.5) L 03/13/16 06:03 Globulin 4.0 gm/dL 03/13/16 06:03 Albumin/Globulin Ratio 0.7 (1.0-1.8) L 03/13/16 06:03 Vitamin B12 389 pg/mL (211-946) 03/10/16 04:30 Folic Acid 13.3 ng/mL (>3.0) 03/10/16 04:30 TSH 2.57 uIU/ml (0.34-5.60) 03/10/16 04:30 Urine Source CATH 03/13/16 16:00 Urine Color YELLOW 03/13/16 16:00 Urine Clarity CLEAR (CLEAR) 03/13/16 16:00 Urine pH 5.5 03/13/16 16:00 Ur Specific [place] 1.010 (1.005-1.030) 03/13/16 16:00 Urine Protein NEGATIVE mg/dL (NEGATIVE) 03/13/16 16:00 Urine Glucose (UA) NEGATIVE mg/dL (NEGATIVE) 03/13/16 16:00 Urine Ketones NEGATIVE mg/dL (NEGATIVE) 03/13/16 16:00 Urine Blood LARGE (NEGATIVE) H 03/13/16 16:00 Urine Nitrate NEGATIVE (NEGATIVE) 03/13/16 16:00 Urine Bilirubin NEGATIVE (NEGATIVE) 03/13/16 16:00 Urine Urobilinogen 1.0 E.U./dL (0.2 - 1.0) 03/13/16 16:00 Ur Leukocyte Esterase TRACE (NEGATIVE) H 03/13/16 16:00 Urine RBC 10-25 /hpf (0-5) H 03/13/16 16:00 Urine WBC 6-10 /hpf (0-5) H 03/13/16 16:00 Ur Epithelial Cells FEW /lpf (FEW) 03/13/16 16:00 Urine Bacteria OCCASIONAL /hpf (NONE SEEN) 03/13/16 16:00 Blood Type B POSITIVE 03/09/16 19:31 Antibody Screen NEGATIVE 03/09/16 19:31 Crossmatch See Detail 03/09/16 19:31 - Physical Exam Vitals and I&O: Vital Signs Temp 98.5 F 03/18/16 08:00 Pulse 54 03/18/16 08:00 Resp 17 03/18/16 08:00 BP 111/64 03/18/16 08:00 Pulse Ox 100 03/18/16 08:00 Intake & Output 03/17/16 03/18/16 03/18/16 18:59 06:59 18:59 Intake Total 100 1520 Balance 100 1520 Intake: Intake, IV Amount 100 1100 D5-0.45NS w/40 mEq KCL 1, 1000 000 ml @ 75 mls/hr IV . [id number] [facility] Rx#:[id number] Pantoprazole 80 mg In 100 Sodium Chloride 0.9% 100 ml @ 10 mls/hr IV Q10H [facility] Rx#:[id number] cefTRIAXone 1 gm In 100 Dextrose 5% 100 ml @ 100 mls/hr IV Q24H [facility] Rx#: [id number] Oral 420 Other: # Voids 3 # Bowel Movements 2 Active Medications: Current Medications Acetaminophen (Tylenol) 650 mg PO Q6HR PRN PRN Reason: PAIN OR TEMP >100 Stop: 05/08/16 21:33 Last Admin: 03/12/16 09:37 Dose: 650 mg Acetaminophen/Codeine Phosphate (Tylenol W/Codeine #3) 1 tab PO Q4HR PRN PRN Reason: PAIN Stop: 05/08/16 21:33 Al Hydrox/Mg Hydrox/Simethicone (Maalox) 30 ml PO Q4HR PRN PRN Reason: Indigestion Stop: 05/08/16 21:33 Albuterol Sulfate (Albuterol 2.5mg/3ml Neb Ud) 2.5 mg IH Q2HR PRN PRN Reason: Shortness of Breath or Wheeze Stop: 05/08/16 21:37 Donepezil HCl (Aricept) 10 mg PO HS [facility] Stop: 05/09/16 20:59 Last Admin: 03/17/16 20:53 Dose: 10 mg Pantoprazole Sodium 80 mg/ (Sodium Chloride) 100 mls @ 10 mls/hr IV Q10H [facility] Stop: 05/08/16 21:44 Last Admin: 03/18/16 12:46 Dose: 10 mls/hr Potassium Chloride/Dextrose/Sod Cl (D5-0.45ns W/40 Meq Kcl) 1,000 mls @ 75 mls/ hr IV .[id number] [facility] Stop: 05/10/16 14:19 Last Admin: 03/18/16 05:58 Dose: 75 mls/hr Meclizine HCl (Antivert) 25 mg PO DAILY PRN PRN Reason: Nausea / Vomiting Stop: 05/08/16 21:37 Mirtazapine (Remeron) 7.5 mg PO HS [facility] PRN Reason: Protocol Stop: 05/09/16 20:59 Last Admin: 03/17/16 20:53 Dose: 7.5 mg Miscellaneous (V[employer] Prophylaxis Screen/ Admission) 1 ea PRN PRN PRN Reason: PROTOCOL Stop: 05/10/16 17:12 Ondansetron HCl (Zofran) 4 mg IV Q8H PRN PRN Reason: Nausea / Vomiting Stop: 05/08/16 21:37 Quetiapine Fumarate (Seroquel) 100 mg PO QPM [facility] PRN Reason: Protocol Stop: 05/09/16 16:59 Last Admin: 03/17/16 16:14 Dose: 100 mg Tamsulosin HCl (Flomax) 0.4 mg PO DAILY [facility] Stop: 05/09/16 08:59 Last Admin: 03/18/16 08:54 Dose: 0.4 mg General: weak, alert HEENT: NC/AT, PERRLA Neck: Supple Lungs: CTAB Cardiovascular: RRR, Normal S1, Normal S2, without murmur Abdomen: soft non-tender - Procedures Procedures: Procedures Procedure Code Date BIOPSY OF BOWEL 81078 03/10/16 EGD BIOPSY SINGLE/MULTIPLE 65292 03/10/16 EXCISION OF LARGE INTESTINE, PERCUTANEOUS APPROACH, DIAGN [id number] 03/10/16 EXCISION OF STOMACH, ENDO, DIAGN [id number] 03/10/16 GROUP PSYCHOTHERAPY 74025 06/08/03 INDIVID PSYCHOTHERAP NEC 94.39 06/08/03 OTHER GROUP THERAPY 94.44 06/08/03 Internal Medicine Assmt/Plan - Assessment Assessment: GI BLEED ANEMIA HYPOTENSION - Plan Plan: awaiting for bx results monitor h/h ivf for hydration cbc/bmp in am cont. ivabx
--- NOTE | 2016-03-18 13:35 | Consultation ---
REFERRING PHYSICIAN: Adriano Plaza D.O. REASON FOR CONSULTATION: Pelvic mass. HISTORY OF PRESENT ILLNESS: The patient is a 70-year-old -[place] male who presented to [facility]. He presented with chronic blood per rectum and refused colonoscopy. CT scan showed pelvic mass and CT-guided biopsy was done on March 15, the pathology is pending. Prior to that, the patient had nuclear medicine bleeding scan that was positive in the rectosigmoid area. PSYCHIATRIC HISTORY: Dementia. MEDICATIONS: Reviewed. SOCIAL HISTORY: Resides in a nursing facility. PHYSICAL EXAMINATION: GENERAL: He is awake, not in distress. VITAL SIGNS: Stable. HEENT: Atraumatic. NECK: No lymphadenopathy. CHEST: Good air entry. ABDOMEN: Soft. Dressing at the biopsy site. No bleeding. EXTREMITIES: Wasted muscles. LABORATORY DATA: White count 12.6, hemoglobin 9.7, platelets 385. B12 and folate level were normal. Liver function is normal. Creatinine 1. CT scan of the abdomen and pelvis from March 13 showed large pelvic mass, no liver lesions with the thickening of the rectosigmoid wall with surrounding inflammation and has sclerotic lesion involving the lower iliac bone ____ bone island and the nuclear medicine GI bleeding scan from March 12 showed area of uptake within the left lower quadrant suggestive of bleeding from this area. ASSESSMENT: Pelvic mass with thickening of the rectosigmoid colon. The patient refused colonoscopy. The presentation is very suggestive of rectosigmoid cancer, awaiting pathology report. I will obtain CEA and ferritin level and plan management after pathology results. Thank you Dr. Plaza for the opportunity to participate in the care of this interesting patient. JOB# [id number]
[2016-03-19 07:50] LABS: HEMATOCRIT 33.1 % (39.0-49.0); HEMOGLOBIN 10.6 gm/dL (12.6-17.4); MEAN CELL VOLUME 78.9 fl (80-99); MEAN CORPUSCULAR HEMOGLOBIN 25.2 pg (27.0-31.0); MEAN CORPUSCULAR HGB CONC 31.9 pg (28.0-36.0); PLATELET COUNT 373 Th/cmm (150-400); RED CELL DISTRIBUTION WIDTH 20.5 % (11.5-20.0); WHITE BLOOD COUNT 11.7 Th/cmm (4.8-10.8)
[2016-03-19 08:26] LABS: ANION GAP 5.3 (7.0-16.0); BUN - UREA NITROGEN 4 mg/dL (7-25); BUN/CREATININE RATIO 3.6; CARBON DIOXIDE 26.1 mEq/L (21.0-31.0); CHLORIDE 106 mEq/L (98-107); CREATININE - SERUM 1.1 mg/dL (0.7-1.3); GLUCOSE 105 mg/dL (70-105); POTASSIUM SERUM 4.4 mEq/L (3.5-5.1); SODIUM SERUM 133 mEq/L (136-145)
[2016-03-19 09:06] LABS: ANISOCYTOSIS 1+; BAND NEUTROPHILE 1 % (0-10); EOSINOPHIL 8 % (0-5); NEUTROPHILS 65 % (40-80); PLATELET ESTIMATE ADEQUATE (NORMAL); PLATELET MORPHOLOGY GIANT PLATELETS SEEN (NORMAL); TOTAL CELLS COUNTED 100
--- NOTE | 2016-03-19 09:39 | Consultation ---
REFERRING PHYSICIAN: Dr. Plaza. REASON FOR CONSULTATION: Sigmoid mass with bleeding. Thank you for referring this patient to me. HISTORY OF PRESENT ILLNESS: This 70-year-old old male admission a week ago because of rectal bleeding. His hemoglobin was found to be 7.2 on admission. He received 2 units of blood. PAST MEDICAL HISTORY: Includes hypertension, COPD, asthma, and dementia. Since then, multiple studies have been done including a CT scan of the pelvis, which showed a large mass in the pelvis measuring about 7.3 x 6 cm arising from the sigmoid colon. Bleeding scan also was positive in the same area. EGD was done and the biopsy did not show any malignancy. CT biopsy was done of the mass in the pelvis. Result of this is not available still. This was done 3 days ago. GI evaluation and Infectious Disease and Oncology consultation has been done. PHYSICAL EXAMINATION: GENERAL: The patient is asthenic. He is mentally unable to give any useful information. ABDOMEN: On examination of lower abdomen, there appears to be a hard mass in the left lower quadrant consistent with the CT scan report. The brother was called over the phone regarding the need for surgical intervention in this patient who likely will bleed again and will also likely obstruct. ____ from the brother to consent for any surgical intervention in this patient. We will follow with you. JOB# [id number]
[2016-03-19] MEDS: Pantoprazole 80 MG in Sodium Chloride 0.9% 100 ML IV SCH ×2 (11:47→20:51)
--- NOTE | 2016-03-19 11:57 | Infectious Disease Prog Note ---
Infectious Disease Subjective - Review of Systems Service Date: 03/19/16 Subjective: No new change. Infectious Disease Objective - Results Result Diagrams: 03/19/16 07:00 03/19/16 07:00 Recent Labs: Laboratory Last Values WBC 11.7 Th/cmm (4.8-10.8) H 03/19/16 07:00 RBC 4.20 Mil/cmm (3.80-5.80) 03/19/16 07:00 Hgb 10.6 gm/dL (12.6-17.4) L 03/19/16 07:00 Hct 33.1 % (39.0-49.0) L D 03/19/16 07:00 MCV 78.9 fl (80-99) L 03/19/16 07:00 MCH 25.2 pg (27.0-31.0) L 03/19/16 07:00 MCHC Differential 31.9 pg (28.0-36.0) 03/19/16 07:00 RDW 20.5 % (11.5-20.0) H 03/19/16 07:00 Plt Count 373 Th/cmm (150-400) 03/19/16 07:00 MPV 8.0 fl 03/19/16 07:00 Neutrophils % 66.8 % (40.0-80.0) 03/17/16 06:19 Band Neutrophils % 1 % (0-10) 03/19/16 07:00 Lymphocytes % 12.9 % (20.0-50.0) L 03/17/16 06:19 Monocytes % 8.2 % (2.0-10.0) 03/17/16 06:19 Eosinophils % 11.8 % (0.0-5.0) H 03/17/16 06:19 Basophils % 0.3 % (0.0-2.0) 03/17/16 06:19 Neutrophils (Manual) 65 % (40-80) 03/19/16 07:00 Lymphocytes 19 % (20-50) L 03/19/16 07:00 Monocytes 7 % (2-10) 03/19/16 07:00 Eosinophils 8 % (0-5) H 03/19/16 07:00 Basophils 1 % (0-3) 03/12/16 08:00 Platelet Estimate ADEQUATE (NORMAL) 03/19/16 07:00 Platelet Morphology GIANT PLATELETS SEEN (NORMAL) 03/19/16 07:00 Anisocytosis 1+ 03/19/16 07:00 Microcytosis 1+ 03/15/16 05:50 RBC Morph Micro Appear ABNORMAL (NORMAL) 03/19/16 07:00 PT 10.8 SECONDS (9.5-11.5) 03/12/16 08:00 INR 1.08 (0.5-1.4) 03/12/16 08:00 PTT (Actin FS) 28.8 SECONDS (26.0-38.0) 03/10/16 04:30 Sodium 133 mEq/L (136-145) L 03/19/16 07:00 Potassium 4.4 mEq/L (3.5-5.1) 03/19/16 07:00 Chloride 106 mEq/L (98-107) 03/19/16 07:00 Carbon Dioxide 26.1 mEq/L (21.0-31.0) 03/19/16 07:00 Anion Gap 5.3 (7.0-16.0) L 03/19/16 07:00 BUN 4 mg/dL (7-25) L 03/19/16 07:00 Creatinine 1.1 mg/dL (0.7-1.3) 03/19/16 07:00 Est GFR ( Amer) > 60.0 ml/min 03/19/16 07:00 Est GFR (Non-Af Amer) > 60.0 ml/min 03/19/16 07:00 BUN/Creatinine Ratio 3.6 03/19/16 07:00 Glucose 105 mg/dL (70-105) 03/19/16 07:00 Calcium 9.0 mg/dL (8.6-10.3) 03/19/16 07:00 Magnesium 2.0 mg/dL (1.9-2.7) 03/11/16 06:30 Total Bilirubin 0.4 mg/dL (0.3-1.0) 03/13/16 06:03 AST 19 U/L (13-39) 03/13/16 06:03 ALT 11 U/L (7-52) 03/13/16 06:03 Alkaline Phosphatase 82 U/L (34-104) 03/13/16 06:03 Ammonia 41 umol/L (16-53) 03/10/16 04:30 B-Natriuretic Peptide 36.6 pg/mL (5.0-100.0) 03/10/16 04:30 Total Protein 6.6 gm/dL (6.0-8.3) 03/13/16 06:03 Albumin 2.6 gm/dL (4.2-5.5) L 03/13/16 06:03 Globulin 4.0 gm/dL 03/13/16 06:03 Albumin/Globulin Ratio 0.7 (1.0-1.8) L 03/13/16 06:03 Carcinoembryonic Ag 2.7 ng/mL (0.0-4.7) 03/18/16 06:19 Vitamin B12 389 pg/mL (211-946) 03/10/16 04:30 Folic Acid 13.3 ng/mL (>3.0) 03/10/16 04:30 TSH 2.57 uIU/ml (0.34-5.60) 03/10/16 04:30 Urine Source CATH 03/13/16 16:00 Urine Color YELLOW 03/13/16 16:00 Urine Clarity CLEAR (CLEAR) 03/13/16 16:00 Urine pH 5.5 03/13/16 16:00 Ur Specific [place] 1.010 (1.005-1.030) 03/13/16 16:00 Urine Protein NEGATIVE mg/dL (NEGATIVE) 03/13/16 16:00 Urine Glucose (UA) NEGATIVE mg/dL (NEGATIVE) 03/13/16 16:00 Urine Ketones NEGATIVE mg/dL (NEGATIVE) 03/13/16 16:00 Urine Blood LARGE (NEGATIVE) H 03/13/16 16:00 Urine Nitrate NEGATIVE (NEGATIVE) 03/13/16 16:00 Urine Bilirubin NEGATIVE (NEGATIVE) 03/13/16 16:00 Urine Urobilinogen 1.0 E.U./dL (0.2 - 1.0) 03/13/16 16:00 Ur Leukocyte Esterase TRACE (NEGATIVE) H 03/13/16 16:00 Urine RBC 10-25 /hpf (0-5) H 03/13/16 16:00 Urine WBC 6-10 /hpf (0-5) H 03/13/16 16:00 Ur Epithelial Cells FEW /lpf (FEW) 03/13/16 16:00 Urine Bacteria OCCASIONAL /hpf (NONE SEEN) 03/13/16 16:00 Blood Type B POSITIVE 03/09/16 19:31 Antibody Screen NEGATIVE 03/09/16 19:31 Crossmatch See Detail 03/09/16 19:31 - Physical Exam Vitals and I&O: Vital Signs Temp 97.4 F 03/19/16 08:00 Pulse 62 03/19/16 08:00 Resp 17 03/19/16 08:00 BP 110/62 03/19/16 08:00 Pulse Ox 98 03/19/16 08:00 Intake & Output 03/18/16 03/19/16 03/19/16 18:59 06:59 18:59 Intake Total 100 100 Balance 100 100 Intake: Intake, IV Amount 100 100 Pantoprazole 80 mg In 100 100 Sodium Chloride 0.9% 100 ml @ 10 mls/hr IV Q10H [facility] Rx#:[id number] Active Medications: Current Medications Acetaminophen (Tylenol) 650 mg PO Q6HR PRN PRN Reason: PAIN OR TEMP >100 Stop: 05/08/16 21:33 Last Admin: 03/12/16 09:37 Dose: 650 mg Acetaminophen/Codeine Phosphate (Tylenol W/Codeine #3) 1 tab PO Q4HR PRN PRN Reason: PAIN Stop: 05/08/16 21:33 Al Hydrox/Mg Hydrox/Simethicone (Maalox) 30 ml PO Q4HR PRN PRN Reason: Indigestion Stop: 05/08/16 21:33 Albuterol Sulfate (Albuterol 2.5mg/3ml Neb Ud) 2.5 mg IH Q2HR PRN PRN Reason: Shortness of Breath or Wheeze Stop: 05/08/16 21:37 Donepezil HCl (Aricept) 10 mg PO HS [facility] Stop: 05/09/16 20:59 Last Admin: 03/18/16 21:03 Dose: 10 mg Pantoprazole Sodium 80 mg/ (Sodium Chloride) 100 mls @ 10 mls/hr IV Q10H [facility] Stop: 05/08/16 21:44 Last Admin: 03/19/16 11:47 Dose: 10 mls/hr Meclizine HCl (Antivert) 25 mg PO DAILY PRN PRN Reason: Nausea / Vomiting Stop: 03/15/17 21:37 Mirtazapine (Remeron) 7.5 mg PO HS [facility] PRN Reason: Protocol Stop: 05/09/16 20:59 Last Admin: 03/18/16 21:03 Dose: 7.5 mg Miscellaneous (Vte Chemical Prophylaxis Screen/ Admission) 1 ea [facility] PRN PRN PRN Reason: PROTOCOL Stop: 05/10/16 17:12 Ondansetron HCl (Zofran) 4 mg IV Q8H PRN PRN Reason: Nausea / Vomiting Stop: 05/08/16 21:37 Quetiapine Fumarate (Seroquel) 100 mg PO QPM [facility] PRN Reason: Protocol Stop: 05/09/16 16:59 Last Admin: 03/18/16 16:23 Dose: 100 mg Tamsulosin HCl (Flomax) 0.4 mg PO DAILY [facility] Stop: 05/09/16 08:59 Last Admin: 03/19/16 09:04 Dose: 0.4 mg General: no acute distress, cachectic HEENT: atraumatic, normocephalic, PERRLA Neck: supple, thyromegaly, lymphadenopathy Cardiovascular: S1S2, regular Lungs: clear to auscultation bilaterally, clear to percussion Abdomen: soft, tender, mass, no distended Extremities: no cyanosis, no clubbing, no edema Neurological: awake, alert, oriented, CN 2-12 intact Skin: intact - Procedures Procedures: Procedures Procedure Code Date BIOPSY OF BOWEL 77170 03/10/16 EGD BIOPSY SINGLE/MULTIPLE 39023 03/10/16 EXCISION OF LARGE INTESTINE, PERCUTANEOUS APPROACH, DIAGN [id number] 03/10/16 EXCISION OF STOMACH, ENDO, DIAGN [id number] 03/10/16 GROUP PSYCHOTHERAPY 87814 06/08/03 INDIVID PSYCHOTHERAP NEC 94.39 06/08/03 OTHER GROUP THERAPY 94.44 06/08/03 Infectious Disease Assmt/Plan - Problem List Patient Problems: All Active Problems BLOOD CLOT IN STOOL (Acute) - Assessment Assessment: Impression: 1. Sepsis. resolving. 2, Intraabdominal mass? colon CA. associated colitis?. 3. GI Bleed 2/2 #2. 4. Dementia. 5. History of hypertension. RECOMMENDATIONS: Continue Rocephin empirically.
--- NOTE | 2016-03-19 13:02 | Internal Medicine Prog Note ---
Internal Medicine Subjective - Subjective Patient seen and examined:: with staff, chart reviewed Patient is:: awake, verbal, interactive, in bed Patient Complaints of:: congestion Per staff patient is:: no adverse event, confused Internal Medicine Objective - Results Result Diagrams: 03/19/16 07:00 03/19/16 07:00 Recent Labs: Laboratory Last Values WBC 11.7 Th/cmm (4.8-10.8) H 03/19/16 07:00 RBC 4.20 Mil/cmm (3.80-5.80) 03/19/16 07:00 Hgb 10.6 gm/dL (12.6-17.4) L 03/19/16 07:00 Hct 33.1 % (39.0-49.0) L D 03/19/16 07:00 MCV 78.9 fl (80-99) L 03/19/16 07:00 MCH 25.2 pg (27.0-31.0) L 03/19/16 07:00 MCHC Differential 31.9 pg (28.0-36.0) 03/19/16 07:00 RDW 20.5 % (11.5-20.0) H 03/19/16 07:00 Plt Count 373 Th/cmm (150-400) 03/19/16 07:00 MPV 8.0 fl 03/19/16 07:00 Neutrophils % 66.8 % (40.0-80.0) 03/17/16 06:19 Band Neutrophils % 1 % (0-10) 03/19/16 07:00 Lymphocytes % 12.9 % (20.0-50.0) L 03/17/16 06:19 Monocytes % 8.2 % (2.0-10.0) 03/17/16 06:19 Eosinophils % 11.8 % (0.0-5.0) H 03/17/16 06:19 Basophils % 0.3 % (0.0-2.0) 03/17/16 06:19 Neutrophils (Manual) 65 % (40-80) 03/19/16 07:00 Lymphocytes 19 % (20-50) L 03/19/16 07:00 Monocytes 7 % (2-10) 03/19/16 07:00 Eosinophils 8 % (0-5) H 03/19/16 07:00 Basophils 1 % (0-3) 03/12/16 08:00 Platelet Estimate ADEQUATE (NORMAL) 03/19/16 07:00 Platelet Morphology GIANT PLATELETS SEEN (NORMAL) 03/19/16 07:00 Anisocytosis 1+ 03/19/16 07:00 Microcytosis 1+ 03/15/16 05:50 RBC Morph Micro Appear ABNORMAL (NORMAL) 03/19/16 07:00 PT 10.8 SECONDS (9.5-11.5) 03/12/16 08:00 INR 1.08 (0.5-1.4) 03/12/16 08:00 PTT (Actin FS) 28.8 SECONDS (26.0-38.0) 03/10/16 04:30 Sodium 133 mEq/L (136-145) L 03/19/16 07:00 Potassium 4.4 mEq/L (3.5-5.1) 03/19/16 07:00 Chloride 106 mEq/L (98-107) 03/19/16 07:00 Carbon Dioxide 26.1 mEq/L (21.0-31.0) 03/19/16 07:00 Anion Gap 5.3 (7.0-16.0) L 03/19/16 07:00 BUN 4 mg/dL (7-25) L 03/19/16 07:00 Creatinine 1.1 mg/dL (0.7-1.3) 03/19/16 07:00 Est GFR ( Amer) > 60.0 ml/min 03/19/16 07:00 Est GFR (Non-Af Amer) > 60.0 ml/min 03/19/16 07:00 BUN/Creatinine Ratio 3.6 03/19/16 07:00 Glucose 105 mg/dL (70-105) 03/19/16 07:00 Calcium 9.0 mg/dL (8.6-10.3) 03/19/16 07:00 Magnesium 2.0 mg/dL (1.9-2.7) 03/11/16 06:30 Total Bilirubin 0.4 mg/dL (0.3-1.0) 03/13/16 06:03 AST 19 U/L (13-39) 03/13/16 06:03 ALT 11 U/L (7-52) 03/13/16 06:03 Alkaline Phosphatase 82 U/L (34-104) 03/13/16 06:03 Ammonia 41 umol/L (16-53) 03/10/16 04:30 B-Natriuretic Peptide 36.6 pg/mL (5.0-100.0) 03/10/16 04:30 Total Protein 6.6 gm/dL (6.0-8.3) 03/13/16 06:03 Albumin 2.6 gm/dL (4.2-5.5) L 03/13/16 06:03 Globulin 4.0 gm/dL 03/13/16 06:03 Albumin/Globulin Ratio 0.7 (1.0-1.8) L 03/13/16 06:03 Carcinoembryonic Ag 2.7 ng/mL (0.0-4.7) 03/18/16 06:19 Vitamin B12 389 pg/mL (211-946) 03/10/16 04:30 Folic Acid 13.3 ng/mL (>3.0) 03/10/16 04:30 TSH 2.57 uIU/ml (0.34-5.60) 03/10/16 04:30 Urine Source CATH 03/13/16 16:00 Urine Color YELLOW 03/13/16 16:00 Urine Clarity CLEAR (CLEAR) 03/13/16 16:00 Urine pH 5.5 03/13/16 16:00 Ur Specific [place] 1.010 (1.005-1.030) 03/13/16 16:00 Urine Protein NEGATIVE mg/dL (NEGATIVE) 03/13/16 16:00 Urine Glucose (UA) NEGATIVE mg/dL (NEGATIVE) 03/13/16 16:00 Urine Ketones NEGATIVE mg/dL (NEGATIVE) 03/13/16 16:00 Urine Blood LARGE (NEGATIVE) H 03/13/16 16:00 Urine Nitrate NEGATIVE (NEGATIVE) 03/13/16 16:00 Urine Bilirubin NEGATIVE (NEGATIVE) 03/13/16 16:00 Urine Urobilinogen 1.0 E.U./dL (0.2 - 1.0) 03/13/16 16:00 Ur Leukocyte Esterase TRACE (NEGATIVE) H 03/13/16 16:00 Urine RBC 10-25 /hpf (0-5) H 03/13/16 16:00 Urine WBC 6-10 /hpf (0-5) H 03/13/16 16:00 Ur Epithelial Cells FEW /lpf (FEW) 03/13/16 16:00 Urine Bacteria OCCASIONAL /hpf (NONE SEEN) 03/13/16 16:00 Blood Type B POSITIVE 03/09/16 19:31 Antibody Screen NEGATIVE 03/09/16 19:31 Crossmatch See Detail 03/09/16 19:31 - Physical Exam Vitals and I&O: Vital Signs Temp 97.4 F 03/19/16 08:00 Pulse 62 03/19/16 08:00 Resp 17 03/19/16 08:00 BP 110/62 03/19/16 08:00 Pulse Ox 98 03/19/16 08:00 Intake & Output 03/18/16 03/19/16 03/19/16 18:59 06:59 18:59 Intake Total 100 100 Balance 100 100 Intake: Intake, IV Amount 100 100 Pantoprazole 80 mg In 100 100 Sodium Chloride 0.9% 100 ml @ 10 mls/hr IV Q10H [facility] Rx#:[id number] Active Medications: Current Medications Acetaminophen (Tylenol) 650 mg PO Q6HR PRN PRN Reason: PAIN OR TEMP >100 Stop: 05/08/16 21:33 Last Admin: 03/12/16 09:37 Dose: 650 mg Acetaminophen/Codeine Phosphate (Tylenol W/Codeine #3) 1 tab PO Q4HR PRN PRN Reason: PAIN Stop: 05/08/16 21:33 Al Hydrox/Mg Hydrox/Simethicone (Maalox) 30 ml PO Q4HR PRN PRN Reason: Indigestion Stop: 05/08/16 21:33 Albuterol Sulfate (Albuterol 2.5mg/3ml Neb Ud) 2.5 mg IH Q2HR PRN PRN Reason: Shortness of Breath or Wheeze Stop: 05/08/16 21:37 Donepezil HCl (Aricept) 10 mg PO HS [facility] Stop: 05/09/16 20:59 Last Admin: 03/18/16 21:03 Dose: 10 mg Pantoprazole Sodium 80 mg/ (Sodium Chloride) 100 mls @ 10 mls/hr IV Q10H [facility] Stop: 05/08/16 21:44 Last Admin: 03/19/16 11:47 Dose: 10 mls/hr Dextrose/Sodium Chloride (D5-0.45ns) 1,000 mls @ 80 mls/hr IV .[id number] [facility] Stop: 05/18/16 12:59 Meclizine HCl (Antivert) 25 mg PO DAILY PRN PRN Reason: Nausea / Vomiting Stop: 05/08/16 21:37 Mirtazapine (Remeron) 7.5 mg PO HS [facility] PRN Reason: Protocol Stop: 05/09/16 20:59 Last Admin: 03/18/16 21:03 Dose: 7.5 mg Miscellaneous (Vte Chemical Prophylaxis Screen/ Admission) 1 ea [facility] PRN PRN PRN Reason: PROTOCOL Stop: 05/10/16 17:12 Ondansetron HCl (Zofran) 4 mg IV Q8H PRN PRN Reason: Nausea / Vomiting Stop: 05/08/16 21:37 Quetiapine Fumarate (Seroquel) 100 mg PO QPM [facility] PRN Reason: Protocol Stop: 05/09/16 16:59 Last Admin: 03/18/16 16:23 Dose: 100 mg Tamsulosin HCl (Flomax) 0.4 mg PO DAILY [facility] Stop: 05/09/16 08:59 Last Admin: 03/19/16 09:04 Dose: 0.4 mg General: demented HEENT: NC/AT, PERRLA Neck: Supple, No JVD Lungs: congested Cardiovascular: RRR, Normal S1, Normal S2 Abdomen: soft non-tender, globular Extremities: excoriation, contracture Neurological: no change - Procedures Procedures: Procedures Procedure Code Date BIOPSY OF BOWEL 71127 03/10/16 EGD BIOPSY SINGLE/MULTIPLE 16801 03/10/16 EXCISION OF LARGE INTESTINE, PERCUTANEOUS APPROACH, DIAGN [id number] 03/10/16 EXCISION OF STOMACH, ENDO, DIAGN [id number] 03/10/16 GROUP PSYCHOTHERAPY 77923 06/08/03 INDIVID PSYCHOTHERAP NEC 94.39 06/08/03 OTHER GROUP THERAPY 94.44 06/08/03 Internal Medicine Assmt/Plan - Assessment Assessment: colon mass- adenoca GI BLEED ANEMIA HYPOTENSION leukocytosis malnutrition - Plan Plan: follow colon biopsy cont on iv fluid abx check culture id and gi follow up dw rn check labs for sugical resection
[2016-03-20 07:42] LABS: HEMATOCRIT 32.2 % (39.0-49.0); HEMOGLOBIN 10.5 gm/dL (12.6-17.4); MEAN CELL VOLUME 79.3 fl (80-99); MEAN CORPUSCULAR HEMOGLOBIN 25.9 pg (27.0-31.0); MEAN CORPUSCULAR HGB CONC 32.7 pg (28.0-36.0); PLATELET COUNT 378 Th/cmm (150-400); RED BLOOD COUNT 4.06 Mil/cmm (3.80-5.80); RED CELL DISTRIBUTION WIDTH 20.4 % (11.5-20.0); WHITE BLOOD COUNT 10.5 Th/cmm (4.8-10.8)
[2016-03-20 07:46] LABS: INR 1.02 (0.5-1.4); PROTHROMBIN TIME (TEST) 10.1 SECONDS (9.5-11.5)
[2016-03-20 07:57] LABS: ANION GAP 5.7 (7.0-16.0); BUN - UREA NITROGEN 3 mg/dL (7-25); CARBON DIOXIDE 26.3 mEq/L (21.0-31.0); CHLORIDE 107 mEq/L (98-107); GLUCOSE 115 mg/dL (70-105); SODIUM SERUM 135 mEq/L (136-145)
[2016-03-20 07:58] LABS: ALB/GLOB RATIO 0.7 (1.0-1.8); ALKALINE PHOSPHATASE 91 U/L (34-104); BILIRUBIN,TOTAL 0.3 mg/dL (0.3-1.0); SGOT 18 U/L (13-39); SGPT/ALT 10 U/L (7-52)
[2016-03-20 08:30] LABS: ANISOCYTOSIS 1+; EOSINOPHIL 13 % (0-5); MICROCYTOSIS 1+; NEUTROPHILS 61 % (40-80); PLATELET ESTIMATE ADEQUATE (NORMAL); PLATELET MORPHOLOGY NORMAL (NORMAL); TOTAL CELLS COUNTED 100
[2016-03-20] MEDS: Pantoprazole 80 MG in Sodium Chloride 0.9% 100 ML IV SCH (09:00)
--- NOTE | 2016-03-20 12:24 | Internal Medicine Prog Note ---
Internal Medicine Subjective - Subjective Service Date: 03/20/16 (called pt's brother [phone] no answer, no voicemail available to leave messages) Patient seen and examined:: with staff Patient is:: awake, interactive Per staff patient is:: no adverse event Internal Medicine Objective - Results Result Diagrams: 03/20/16 06:55 03/20/16 06:55 Recent Labs: Laboratory Last Values WBC 10.5 Th/cmm (4.8-10.8) 03/20/16 06:55 RBC 4.06 Mil/cmm (3.80-5.80) 03/20/16 06:55 Hgb 10.5 gm/dL (12.6-17.4) L 03/20/16 06:55 Hct 32.2 % (39.0-49.0) L 03/20/16 06:55 MCV 79.3 fl (80-99) L 03/20/16 06:55 MCH 25.9 pg (27.0-31.0) L 03/20/16 06:55 MCHC Differential 32.7 pg (28.0-36.0) 03/20/16 06:55 RDW 20.4 % (11.5-20.0) H 03/20/16 06:55 Plt Count 378 Th/cmm (150-400) 03/20/16 06:55 MPV 8.0 fl 03/20/16 06:55 Neutrophils % 66.8 % (40.0-80.0) 03/17/16 06:19 Band Neutrophils % 1 % (0-10) 03/19/16 07:00 Lymphocytes % 12.9 % (20.0-50.0) L 03/17/16 06:19 Monocytes % 8.2 % (2.0-10.0) 03/17/16 06:19 Eosinophils % 11.8 % (0.0-5.0) H 03/17/16 06:19 Basophils % 0.3 % (0.0-2.0) 03/17/16 06:19 Neutrophils (Manual) 61 % (40-80) 03/20/16 06:55 Lymphocytes 19 % (20-50) L 03/20/16 06:55 Monocytes 7 % (2-10) 03/20/16 06:55 Eosinophils 13 % (0-5) H 03/20/16 06:55 Basophils 1 % (0-3) 03/12/16 08:00 Platelet Estimate ADEQUATE (NORMAL) 03/20/16 06:55 Platelet Morphology NORMAL (NORMAL) 03/20/16 06:55 Anisocytosis 1+ 03/20/16 06:55 Microcytosis 1+ 03/20/16 06:55 RBC Morph Micro Appear ABNORMAL (NORMAL) 03/20/16 06:55 PT 10.1 SECONDS (9.5-11.5) 03/20/16 06:55 INR 1.02 (0.5-1.4) 03/20/16 06:55 PTT (Actin FS) 27.6 SECONDS (26.0-38.0) 03/20/16 06:55 Sodium 135 mEq/L (136-145) L 03/20/16 06:55 Potassium 4.0 mEq/L (3.5-5.1) 03/20/16 06:55 Chloride 107 mEq/L (98-107) 03/20/16 06:55 Carbon Dioxide 26.3 mEq/L (21.0-31.0) 03/20/16 06:55 Anion Gap 5.7 (7.0-16.0) L 03/20/16 06:55 BUN 3 mg/dL (7-25) L 03/20/16 06:55 Creatinine 1.0 mg/dL (0.7-1.3) 03/20/16 06:55 Est GFR ( Amer) > 60.0 ml/min 03/20/16 06:55 Est GFR (Non-Af Amer) > 60.0 ml/min 03/20/16 06:55 BUN/Creatinine Ratio 3.0 03/20/16 06:55 Glucose 115 mg/dL (70-105) H 03/20/16 06:55 Calcium 9.0 mg/dL (8.6-10.3) 03/20/16 06:55 Magnesium 2.0 mg/dL (1.9-2.7) 03/11/16 06:30 Ferritin 136 ng/mL (30-400) 03/19/16 07:40 Total Bilirubin 0.3 mg/dL (0.3-1.0) 03/20/16 06:55 AST 18 U/L (13-39) 03/20/16 06:55 ALT 10 U/L (7-52) 03/20/16 06:55 Alkaline Phosphatase 91 U/L (34-104) 03/20/16 06:55 Ammonia 41 umol/L (16-53) 03/10/16 04:30 B-Natriuretic Peptide 36.6 pg/mL (5.0-100.0) 03/10/16 04:30 Total Protein 6.9 gm/dL (6.0-8.3) 03/20/16 06:55 Albumin 2.9 gm/dL (4.2-5.5) L 03/20/16 06:55 Globulin 4.0 gm/dL 03/20/16 06:55 Albumin/Globulin Ratio 0.7 (1.0-1.8) L 03/20/16 06:55 Carcinoembryonic Ag 2.7 ng/mL (0.0-4.7) 03/18/16 06:19 Vitamin B12 389 pg/mL (211-946) 03/10/16 04:30 Folic Acid 13.3 ng/mL (>3.0) 03/10/16 04:30 TSH 2.57 uIU/ml (0.34-5.60) 03/10/16 04:30 Urine Source CATH 03/13/16 16:00 Urine Color YELLOW 03/13/16 16:00 Urine Clarity CLEAR (CLEAR) 03/13/16 16:00 Urine pH 5.5 03/13/16 16:00 Ur Specific [place] 1.010 (1.005-1.030) 03/13/16 16:00 Urine Protein NEGATIVE mg/dL (NEGATIVE) 03/13/16 16:00 Urine Glucose (UA) NEGATIVE mg/dL (NEGATIVE) 03/13/16 16:00 Urine Ketones NEGATIVE mg/dL (NEGATIVE) 03/13/16 16:00 Urine Blood LARGE (NEGATIVE) H 03/13/16 16:00 Urine Nitrate NEGATIVE (NEGATIVE) 03/13/16 16:00 Urine Bilirubin NEGATIVE (NEGATIVE) 03/13/16 16:00 Urine Urobilinogen 1.0 E.U./dL (0.2 - 1.0) 03/13/16 16:00 Ur Leukocyte Esterase TRACE (NEGATIVE) H 03/13/16 16:00 Urine RBC 10-25 /hpf (0-5) H 03/13/16 16:00 Urine WBC 6-10 /hpf (0-5) H 03/13/16 16:00 Ur Epithelial Cells FEW /lpf (FEW) 03/13/16 16:00 Urine Bacteria OCCASIONAL /hpf (NONE SEEN) 03/13/16 16:00 Blood Type B POSITIVE 03/19/16 16:10 Antibody Screen NEGATIVE 03/19/16 16:10 Crossmatch See Detail 03/19/16 16:10 - Physical Exam Vitals and I&O: Vital Signs Temp 98.2 F 03/20/16 11:19 Pulse 55 03/20/16 11:19 Resp 18 03/20/16 11:19 BP 115/61 03/20/16 11:19 Pulse Ox 98 03/20/16 11:19 Intake & Output 03/19/16 03/20/16 03/20/16 18:59 06:59 18:59 Intake Total 100 190.667 Balance 100 190.667 Intake: Intake, IV Amount 100 190.667 Pantoprazole 80 mg In 100 190.667 Sodium Chloride 0.9% 100 ml @ 10 mls/hr IV Q10H [facility] Rx#:[id number] Active Medications: Current Medications Acetaminophen (Tylenol) 650 mg PO Q6HR PRN PRN Reason: PAIN OR TEMP >100 Stop: 05/08/16 21:33 Last Admin: 03/12/16 09:37 Dose: 650 mg Acetaminophen/Codeine Phosphate (Tylenol W/Codeine #3) 1 tab PO Q4HR PRN PRN Reason: PAIN Stop: 05/08/16 21:33 Al Hydrox/Mg Hydrox/Simethicone (Maalox) 30 ml PO Q4HR PRN PRN Reason: Indigestion Stop: 05/08/16 21:33 Albuterol Sulfate (Albuterol 2.5mg/3ml Neb Ud) 2.5 mg IH Q2HR PRN PRN Reason: Shortness of Breath or Wheeze Stop: 05/08/16 21:37 Donepezil HCl (Aricept) 10 mg PO [facility] Stop: 05/09/16 20:59 Last Admin: 03/19/16 21:29 Dose: 10 mg Pantoprazole Sodium 80 mg/ (Sodium Chloride) 100 mls @ 10 mls/hr IV Q10H [facility] Stop: 05/08/16 21:44 Last Admin: 03/20/16 09:00 Dose: 10 mls/hr Dextrose/Sodium Chloride (D5-0.45ns) 1,000 mls @ 80 mls/hr IV .[id number] [facility] Stop: 05/18/16 12:59 Meclizine HCl (Antivert) 25 mg PO DAILY PRN PRN Reason: Nausea / Vomiting Stop: 05/08/16 21:37 Mirtazapine (Remeron) 7.5 mg PO HS AMAURI PRN Reason: Protocol Stop: 05/09/16 20:59 Last Admin: 03/19/16 21:28 Dose: 7.5 mg Miscellaneous (Vte [employer] Prophylaxis Screen/ Admission) 1 ea [facility] PRN PRN PRN Reason: PROTOCOL Stop: 05/10/16 17:12 Ondansetron HCl (Zofran) 4 mg IV Q8H PRN PRN Reason: Nausea / Vomiting Stop: 05/08/16 21:37 Quetiapine Fumarate (Seroquel) 100 mg PO QPM AMAURI PRN Reason: Protocol Stop: 05/09/16 16:59 Last Admin: 03/19/16 17:42 Dose: 100 mg Tamsulosin HCl (Flomax) 0.4 mg PO DAILY [facility] Stop: 05/09/16 08:59 Last Admin: 03/20/16 10:38 Dose: 0.4 mg General: alert HEENT: NC/AT, PERRLA Neck: Supple Cardiovascular: RRR, Normal S1, Normal S2, without murmur Abdomen: soft non-tender Extremities: clear Neurological: no change - Procedures Procedures: Procedures Procedure Code Date BIOPSY OF BOWEL 65335 03/10/16 EGD BIOPSY SINGLE/MULTIPLE 29571 03/10/16 EXCISION OF LARGE INTESTINE, PERCUTANEOUS APPROACH, DIAGN [id number] 03/10/16 EXCISION OF STOMACH, ENDO, DIAGN [id number] 03/10/16 GROUP PSYCHOTHERAPY 24252 06/08/03 INDIVID PSYCHOTHERAP NEC 94.39 06/08/03 OTHER GROUP THERAPY 94.44 06/08/03 Internal Medicine Assmt/Plan - Assessment Assessment: GI BLEED ANEMIA HYPOTENSION - Plan Plan: need consent from pt's brother for exploratory laparatomy possible colon resection, possible colostomy monitor h/h ivf for hydration cbc/bmp in am cont. ivabx
--- NOTE | 2016-03-21 00:42 | Consultation ---
PSYCHIATRIC CONSULTATION The patient was seen, chart reviewed, and discussed with staff. HISTORY OF PRESENT ILLNESS: The patient is a 70-year-old -[place] male with a history of schizoaffective disorder who was transferred from his custodial facility. Now, he is on medical floor. Now, I was asked to see the patient to evaluate for possible surgery. The patient appears to be confused. Denied feeling depressed. He has been taking his medications, having some episodes of agitation at times with staff, but no striking out. The patient is a poor historian overall. PAST PSYCHIATRIC HISTORY: Significant for chronic mental illness and prior psychiatric hospitalizations. The patient has a history of hallucinations and schizophrenia. PAST MEDICAL HISTORY: Significant for GERD, COPD, and history of dysphagia. His hemoglobin was found to be upon admission and he received blood transfusion. The patient will need surgery as per consultation by Dr. Mancilla for exploratory laparotomy, possible colon resection, and possible colostomy. PSYCHOSOCIAL HISTORY: The patient resides in a custodial facility and requires complete care. MENTAL STATUS EXAMINATION: The patient was in bed. He was oriented to person. He knew he was in the hospital, did not know the name of the hospital. His long-term memory appears to be adequate. He is able to tell his date of ; his short-term memory is impaired. He was able to recall one out of three after five minutes with prompting. The patient did not know the name of the hospital. He did not know current date. He did not know the year or the month despite prompting. The patient appears to be guarded, somewhat paranoid. Thought process is fragmented. Insight appears to be very poor. ASSESSMENT: Schizoaffective disorder, rule out schizophrenia, paranoid type. Dementia, Alzheimer's type, mild to moderate. PLAN: At this time, it is my opinion that the patient lacks capacity. Consent for surgical procedure given that he is disoriented to time and he has some episodes of confusion, and he is having difficulty sustaining ability to make decision based on adequate understanding of information regarding procedure. The patient appears to be passively cooperative and he said he does not mind as long as it is going to help him live better and definitely the patient said he did not want to and he is ready to do what it takes to feel better, but in terms of consent for the procedure itself, the patient has limited understating and poor comprehension. We will continue current medication regimen at [facility] and [facility] [place][Note 2]. We will follow while in the hospital. Thank you for the consultation. JOB# [id number]
[2016-03-21] MEDS: Pantoprazole 80 MG in Sodium Chloride 0.9% 100 ML IV SCH ×3 (04:55→19:12)
[2016-03-21 07:01] LABS: HEMATOCRIT 31.9 % (39.0-49.0); HEMOGLOBIN 10.4 gm/dL (12.6-17.4); MEAN CELL VOLUME 79.8 fl (80-99); MEAN CORPUSCULAR HEMOGLOBIN 26.1 pg (27.0-31.0); MEAN CORPUSCULAR HGB CONC 32.7 pg (28.0-36.0); MEAN PLATELET VOLUME 8.3 fl; PLATELET COUNT 429 Th/cmm (150-400); RED BLOOD COUNT 3.99 Mil/cmm (3.80-5.80); RED CELL DISTRIBUTION WIDTH 20.8 % (11.5-20.0); WHITE BLOOD COUNT 10.2 Th/cmm (4.8-10.8)
[2016-03-21] MEDS ORDERED: ISOFLURANE 100 ML BOTTLE INH ONE (07:15)
[2016-03-21 07:17] LABS: ANION GAP 8.7 (7.0-16.0); BUN - UREA NITROGEN 6 mg/dL (7-25); CARBON DIOXIDE 28.4 mEq/L (21.0-31.0); CHLORIDE 102 mEq/L (98-107); GLUCOSE 94 mg/dL (70-105); POTASSIUM SERUM 4.1 mEq/L (3.5-5.1); SODIUM SERUM 135 mEq/L (136-145)
[2016-03-21] MEDS ORDERED: metroNIDAZOLE 500mg/NS 100mL 500 MG/100 ML BAG IV ONE (07:44)
[2016-03-21] MEDS ORDERED: Piperacillin Sodium/Tazobact 3.375 gm Vial IV ONE (07:44)
[2016-03-21] MEDS ORDERED: Meperidine 50 mg/mL 1mL Syr ONE (07:50)
[2016-03-21] MEDS ORDERED: Midazolam 1mg/ml 2 ml vial IV ONE (07:50)
[2016-03-21] MEDS ORDERED: Lidocaine 2% Gel 5 mL TP ONE (08:17)
[2016-03-21 08:48] LABS: BAND NEUTROPHILE 2 % (0-10); EOSINOPHIL 9 % (0-5); NEUTROPHILS 66 % (40-80); TOTAL CELLS COUNTED 100
[2016-03-21 08:49] LABS: ANISOCYTOSIS 1+; MICROCYTOSIS 1+; PLATELET ESTIMATE ADEQUATE (NORMAL); PLATELET MORPHOLOGY NORMAL (NORMAL)
[2016-03-21] MEDS ORDERED: Meperidine 25 mg/mL 1mL Syr IVP PRN (09:38)
[2016-03-21] MEDS ORDERED: Lactated Ringer 1,000 ML IV SCH (09:45)
[2016-03-21] MEDS: metroNIDAZOLE 500mg/NS 100mL 500 MG in Premix Fluid 1 BAG IV SCH ×2 (09:55→16:20)
--- NOTE | 2016-03-21 10:04 | Diagnostic Imaging Report ---
CHEST X-RAY: AP view INDICATION: ET tube and NG tube placement COMPARISON: Chest x-ray 03/10/2016 FINDINGS: Endotracheal tube has been placed with tip 4.5 cm above the chato. NG tube may be along the nasopharyngeal region. The visualized lung jefferson demonstrate no focal consolidation. Old left rib fractures are noted. The right costophrenic angle is incompletely visualized. Distended stomach is noted with copious stool throughout the large bowel. Postsurgical changes of the abdomen are noted. IMPRESSION: ET tube with tip 4.5 cm above the [place] NG tube malpositioned, possibly along the nasopharyngeal region. Recommend removal and possible reinsertion. No focal consolidation identified Copious stool throughout the colon with gaseous distention of the stomach. Postsurgical changes in the abdomen.
[2016-03-21] MEDS: D5-0.45NS 1,000 ML IV SCH (10:34)
[2016-03-21 11:40] LABS: HEMATOCRIT 34.5 % (39.0-49.0); HEMOGLOBIN 11.3 gm/dL (12.6-17.4); MEAN CELL VOLUME 80.6 fl (80-99); MEAN CORPUSCULAR HEMOGLOBIN 26.5 pg (27.0-31.0); MEAN CORPUSCULAR HGB CONC 32.8 pg (28.0-36.0); PLATELET COUNT 365 Th/cmm (150-400); RED BLOOD COUNT 4.28 Mil/cmm (3.80-5.80); RED CELL DISTRIBUTION WIDTH 19.4 % (11.5-20.0)
[2016-03-21 11:43] LABS: WHITE BLOOD COUNT 23.8 Th/cmm (4.8-10.8)
[2016-03-21] MEDS ORDERED: Sodium Chloride 0.9% 1,000 ML IV SCH (11:45)
[2016-03-21] MEDS ORDERED: Albumin 25% 25gm/100mL 25 GM/100 ML BTL IV ONE (12:09)
[2016-03-21] MEDS: Albumin 25% 25gm/100mL 25 GM/100 ML BTL IV SCH ×2 (12:15→19:45)
[2016-03-21 12:38] LABS: HCO3 22.4 mmol/L (20.0-26.0); pH 7.39 (7.35-7.45)
[2016-03-21 12:39] LABS: ABG SOURCE Arterial; ALLEN TEST YES; BE(B) -2.2 mmol/L (-3.0-3.0); FIO2 30; MECH RATE 12; MECH VT 500
[2016-03-21 12:43] LABS: BAND NEUTROPHILE 7 % (0-10); NEUTROPHILS 77 % (40-80); PLATELET ESTIMATE ADEQUATE (NORMAL); TOTAL CELLS COUNTED 100
[2016-03-21 12:44] LABS: PLATELET MORPHOLOGY GIANT PLATELETS SEEN (NORMAL)
--- NOTE | 2016-03-21 13:39 | Infectious Disease Prog Note ---
Infectious Disease Subjective - Review of Systems Service Date: 03/21/16 Subjective: Patient underwent sigmoid colectomy, colostomy, small bowel resection and appendectomy. He remained intubated and hypotensive, opn levophed. Intubated orally, on the ventilator support. Infectious Disease Objective - Results Result Diagrams: 03/21/16 11:35 03/21/16 06:19 Recent Labs: Laboratory Last Values WBC 23.8 Th/cmm (4.8-10.8) H* D 03/21/16 11:35 RBC 4.28 Mil/cmm (3.80-5.80) 03/21/16 11:35 Hgb 11.3 gm/dL (12.6-17.4) L 03/21/16 11:35 Hct 34.5 % (39.0-49.0) L 03/21/16 11:35 MCV 80.6 fl (80-99) 03/21/16 11:35 MCH 26.5 pg (27.0-31.0) L 03/21/16 11:35 MCHC Differential 32.8 pg (28.0-36.0) 03/21/16 11:35 RDW 19.4 % (11.5-20.0) 03/21/16 11:35 Plt Count 365 Th/cmm (150-400) 03/21/16 11:35 MPV 8.0 fl 03/21/16 11:35 Neutrophils % 66.8 % (40.0-80.0) 03/17/16 06:19 Band Neutrophils % 7 % (0-10) 03/21/16 11:35 Lymphocytes % 12.9 % (20.0-50.0) L 03/17/16 06:19 Monocytes % 8.2 % (2.0-10.0) 03/17/16 06:19 Eosinophils % 11.8 % (0.0-5.0) H 03/17/16 06:19 Basophils % 0.3 % (0.0-2.0) 03/17/16 06:19 Neutrophils (Manual) 77 % (40-80) 03/21/16 11:35 Lymphocytes 7 % (20-50) L 03/21/16 11:35 Monocytes 9 % (2-10) 03/21/16 11:35 Eosinophils 9 % (0-5) H 03/21/16 06:19 Basophils 1 % (0-3) 03/12/16 08:00 Platelet Estimate ADEQUATE (NORMAL) 03/21/16 11:35 Platelet Morphology GIANT PLATELETS SEEN (NORMAL) 03/21/16 11:35 Anisocytosis 1+ 03/21/16 06:19 Microcytosis 1+ 03/21/16 06:19 RBC Morph Micro Appear NORMAL (NORMAL) 03/21/16 11:35 PT 10.1 SECONDS (9.5-11.5) 03/20/16 06:55 INR 1.02 (0.5-1.4) 03/20/16 06:55 PTT (Actin FS) 27.6 SECONDS (26.0-38.0) 03/20/16 06:55 Specimen Source Arterial 03/21/16 12:20 Sample Site Right Radial 03/21/16 12:20 pH 7.39 (7.35-7.45) 03/21/16 12:20 pCO2 37.0 mmHg (35.0-45.0) 03/21/16 12:20 pO2 103.0 mmHg (80.0-100.0) H 03/21/16 12:20 HCO3 22.4 mmol/L (20.0-26.0) 03/21/16 12:20 Base Excess -2.2 mmol/L (-3.0-3.0) 03/21/16 12:20 O2 Saturation 98.0 % (92.0-100.0) 03/21/16 12:20 Galo Test YES 03/21/16 12:20 Vent Rate 12 03/21/16 12:20 Inspired O2 30 03/21/16 12:20 Tidal Volume 500 03/21/16 12:20 PEEP 5 03/21/16 12:20 Pressure (ins/psv/peep) NA 03/21/16 12:20 Critical Value E.HERNANDEZ 03/21/16 12:20 Sodium 135 mEq/L (136-145) L 03/21/16 06:19 Potassium 4.1 mEq/L (3.5-5.1) 03/21/16 06:19 Chloride 102 mEq/L (98-107) 03/21/16 06:19 Carbon Dioxide 28.4 mEq/L (21.0-31.0) 03/21/16 06:19 Anion Gap 8.7 (7.0-16.0) 03/21/16 06:19 BUN 6 mg/dL (7-25) L 03/21/16 06:19 Creatinine 1.0 mg/dL (0.7-1.3) 03/21/16 06:19 Est GFR ( Amer) > 60.0 ml/min (>90) 03/21/16 06:19 Est GFR (Non-Af Amer) > 60.0 ml/min 03/21/16 06:19 BUN/Creatinine Ratio 6.0 03/21/16 06:19 Glucose 94 mg/dL (70-105) 03/21/16 06:19 Calcium 9.0 mg/dL (8.6-10.3) 03/21/16 06:19 Magnesium 2.0 mg/dL (1.9-2.7) 03/11/16 06:30 Ferritin 136 ng/mL (30-400) 03/19/16 07:40 Total Bilirubin 0.3 mg/dL (0.3-1.0) 03/20/16 06:55 AST 18 U/L (13-39) 03/20/16 06:55 ALT 10 U/L (7-52) 03/20/16 06:55 Alkaline Phosphatase 91 U/L (34-104) 03/20/16 06:55 Ammonia 41 umol/L (16-53) 03/10/16 04:30 B-Natriuretic Peptide 36.6 pg/mL (5.0-100.0) 03/10/16 04:30 Total Protein 6.9 gm/dL (6.0-8.3) 03/20/16 06:55 Albumin 2.9 gm/dL (4.2-5.5) L 03/20/16 06:55 Globulin 4.0 gm/dL 03/20/16 06:55 Albumin/Globulin Ratio 0.7 (1.0-1.8) L 03/20/16 06:55 Carcinoembryonic Ag 2.7 ng/mL (0.0-4.7) 03/18/16 06:19 Vitamin B12 389 pg/mL (211-946) 03/10/16 04:30 Folic Acid 13.3 ng/mL (>3.0) 03/10/16 04:30 TSH 2.57 uIU/ml (0.34-5.60) 03/10/16 04:30 Urine Source CATH 03/13/16 16:00 Urine Color YELLOW 03/13/16 16:00 Urine Clarity CLEAR (CLEAR) 03/13/16 16:00 Urine pH 5.5 03/13/16 16:00 Ur Specific [place] 1.010 (1.005-1.030) 03/13/16 16:00 Urine Protein NEGATIVE mg/dL (NEGATIVE) 03/13/16 16:00 Urine Glucose (UA) NEGATIVE mg/dL (NEGATIVE) 03/13/16 16:00 Urine Ketones NEGATIVE mg/dL (NEGATIVE) 03/13/16 16:00 Urine Blood LARGE (NEGATIVE) H 03/13/16 16:00 Urine Nitrate NEGATIVE (NEGATIVE) 03/13/16 16:00 Urine Bilirubin NEGATIVE (NEGATIVE) 03/13/16 16:00 Urine Urobilinogen 1.0 E.U./dL (0.2 - 1.0) 03/13/16 16:00 Ur Leukocyte Esterase TRACE (NEGATIVE) H 03/13/16 16:00 Urine RBC 10-25 /hpf (0-5) H 03/13/16 16:00 Urine WBC 6-10 /hpf (0-5) H 03/13/16 16:00 Ur Epithelial Cells FEW /lpf (FEW) 03/13/16 16:00 Urine Bacteria OCCASIONAL /hpf (NONE SEEN) 03/13/16 16:00 Blood Type B POSITIVE 03/19/16 16:10 Antibody Screen NEGATIVE 03/19/16 16:10 Crossmatch See Detail 03/19/16 16:10 - Physical Exam Vitals and I&O: Vital Signs Temp 97.9 F 03/21/16 07:00 Pulse 101 03/21/16 11:10 Resp 18 03/21/16 08:00 BP 123/74 03/21/16 07:00 Pulse Ox 100 03/21/16 11:10 Intake & Output 03/20/16 03/21/16 03/21/16 18:59 06:59 18:59 Intake Total 300 60.333 Output Total 200 Balance 100 60.333 Weight (lbs) 58.513 kg Intake: Intake, IV Amount 100 60.333 Pantoprazole 80 mg In 100 60.333 Sodium Chloride 0.9% 100 ml @ 10 mls/hr IV Q10H [facility] Rx#:[id number] Oral 200 Output: Urine 200 Other: # Voids 3 Active Medications: Current Medications Acetaminophen (Tylenol) 650 mg PO Q6HR PRN PRN Reason: PAIN OR TEMP >100 Stop: 05/08/16 21:33 Last Admin: 03/12/16 09:37 Dose: 650 mg Acetaminophen/Codeine Phosphate (Tylenol W/Codeine #3) 1 tab PO Q4HR PRN PRN Reason: PAIN Stop: 05/08/16 21:33 Al Hydrox/Mg Hydrox/Simethicone (Maalox) 30 ml PO Q4HR PRN PRN Reason: Indigestion Stop: 05/08/16 21:33 Albuterol Sulfate (Albuterol 2.5mg/3ml Neb Ud) 2.5 mg IH Q2HR PRN PRN Reason: Shortness of Breath or Wheeze Stop: 05/08/16 21:37 Chlorhexidine Gluconate (Peridex) 15 ml MM 0800,2000 [facility] Stop: 05/20/16 19:59 Donepezil HCl (Aricept) 10 mg PO HS [facility] Stop: 05/09/16 20:59 Last Admin: 03/20/16 23:55 Dose: 10 mg Pantoprazole Sodium 80 mg/ (Sodium Chloride) 100 mls @ 10 mls/hr IV Q10H [facility] Stop: 05/08/16 21:44 Last Admin: 03/21/16 10:57 Dose: 10 mls/hr Dextrose/Sodium Chloride (D5-0.45ns) 1,000 mls @ 80 mls/hr IV .[id number] [facility] Stop: 05/18/16 12:59 Last Admin: 03/21/16 10:34 Dose: 80 mls/hr Piperacillin Sod/Tazobactam (Sod 3.375 gm/ Dextrose) 50 mls @ 100 mls/hr IV Q8H [facility] Stop: 05/20/16 09:14 Last Admin: 03/21/16 09:56 Dose: Not Given Metronidazole 500 mg/ (Miscellaneous) 100 mls @ 100 mls/hr IV Q8H [facility] Stop: 05/20/16 09:14 Last Admin: 03/21/16 09:55 Dose: Not Given Lactated Ringer's (Lactated Ringer) 1,000 mls @ 0 mls/hr IV .Q0M [facility] PRN Reason: TKO Stop: 03/22/16 09:44 Norepinephrine Bitartrate 4 mg (/ Dextrose) 254 mls @ 15.24 mls/hr IV TITR PRN ; Protocol; 4 MCG/MIN PRN Reason: BP MAINTENANCE (PER PROTOCOL) Stop: 05/20/16 11:23 Last Admin: 03/21/16 11:54 Dose: 4 mcg/min, 15.24 mls/hr Sodium Chloride (Nacl 0.9%) 1,000 mls @ 0 mls/hr IV .Q0M [facility] PRN Reason: Wide Open Stop: 05/20/16 11:44 Albumin Human (Albuminar 25%) 25 gm in 100 mls @ 100 mls/hr IV Q8H [facility] Stop: 03/22/16 04:44 Last Admin: 03/21/16 12:15 Dose: 100 mls/hr Meclizine HCl (Antivert) 25 mg PO DAILY PRN PRN Reason: Nausea / Vomiting Stop: 05/08/16 21:37 Meperidine HCl (Demerol) 25 mg IVP UD PRN PRN Reason: POST-OP PAIN Stop: 03/22/16 09:37 Mirtazapine (Remeron) 7.5 mg PO HS [facility] PRN Reason: Protocol Stop: 05/09/16 20:59 Last Admin: 03/20/16 23:54 Dose: 7.5 mg Miscellaneous (Vte Chemical Prophylaxis Screen/ Admission) 1 ea [facility] PRN PRN PRN Reason: PROTOCOL Stop: 05/10/16 17:12 Morphine Sulfate (Morphine) 2 mg IV Q3H PRN PRN Reason: Pain (Moderate) Stop: 05/20/16 10:29 Morphine Sulfate (Morphine) 2 mg IVP Q4HR PRN PRN Reason: Pain (Moderate) Stop: 05/20/16 13:00 Ondansetron HCl (Zofran) 4 mg IV Q8H PRN PRN Reason: Nausea / Vomiting Stop: 05/08/16 21:37 Quetiapine Fumarate (Seroquel) 100 mg PO QPM [facility] PRN Reason: Protocol Stop: 05/09/16 16:59 Last Admin: 03/19/16 17:42 Dose: 100 mg Tamsulosin HCl (Flomax) 0.4 mg PO DAILY [facility] Stop: 05/09/16 08:59 Last Admin: 03/21/16 09:55 Dose: Not Given General: no acute distress, well developed, well nourished HEENT: atraumatic, normocephalic Neck: supple, no thyromegaly Cardiovascular: S1S2, regular Lungs: clear to auscultation bilaterally, clear to percussion Abdomen: soft, other (surgical incision and colostomy.), no tender, no distended Extremities: no cyanosis, no clubbing, no edema Neurological: other (sedated) Skin: intact - Procedures Procedures: Procedures Procedure Code Date BIOPSY OF BOWEL 42012 03/10/16 EGD BIOPSY SINGLE/MULTIPLE 39963 03/10/16 EXCISION OF LARGE INTESTINE, PERCUTANEOUS APPROACH, DIAGN [id number] 03/10/16 EXCISION OF STOMACH, ENDO, DIAGN [id number] 03/10/16 GROUP PSYCHOTHERAPY 52851 06/08/03 INDIVID PSYCHOTHERAP NEC 94.39 06/08/03 OTHER GROUP THERAPY 94.44 06/08/03 Infectious Disease Assmt/Plan - Problem List Patient Problems: All Active Problems BLOOD CLOT IN STOOL (Acute) - Assessment Assessment: Impression: 1. hypotension, post operative. r/o sepsis. 2, Intraabdominal mass? colon CA. associated colitis?. 3. GI Bleed 2/2 #2. 4. Dementia. 5. History of hypertension. 6. s/p colectomy and colostomy. RECOMMENDATIONS: Change Rocephin to zosyn.
--- NOTE | 2016-03-21 14:43 | Internal Medicine Prog Note ---
Internal Medicine Subjective - Subjective Patient seen and examined:: with staff, chart reviewed Patient is:: awake, other (pn vent) Per staff patient is:: noncompliant, confused, other (s\p surgery) Internal Medicine Objective - Results Result Diagrams: 03/21/16 11:35 03/21/16 06:19 Recent Labs: Laboratory Last Values WBC 23.8 Th/cmm (4.8-10.8) H* D 03/21/16 11:35 RBC 4.28 Mil/cmm (3.80-5.80) 03/21/16 11:35 Hgb 11.3 gm/dL (12.6-17.4) L 03/21/16 11:35 Hct 34.5 % (39.0-49.0) L 03/21/16 11:35 MCV 80.6 fl (80-99) 03/21/16 11:35 MCH 26.5 pg (27.0-31.0) L 03/21/16 11:35 MCHC Differential 32.8 pg (28.0-36.0) 03/21/16 11:35 RDW 19.4 % (11.5-20.0) 03/21/16 11:35 Plt Count 365 Th/cmm (150-400) 03/21/16 11:35 MPV 8.0 fl 03/21/16 11:35 Neutrophils % 66.8 % (40.0-80.0) 03/17/16 06:19 Band Neutrophils % 7 % (0-10) 03/21/16 11:35 Lymphocytes % 12.9 % (20.0-50.0) L 03/17/16 06:19 Monocytes % 8.2 % (2.0-10.0) 03/17/16 06:19 Eosinophils % 11.8 % (0.0-5.0) H 03/17/16 06:19 Basophils % 0.3 % (0.0-2.0) 03/17/16 06:19 Neutrophils (Manual) 77 % (40-80) 03/21/16 11:35 Lymphocytes 7 % (20-50) L 03/21/16 11:35 Monocytes 9 % (2-10) 03/21/16 11:35 Eosinophils 9 % (0-5) H 03/21/16 06:19 Basophils 1 % (0-3) 03/12/16 08:00 Platelet Estimate ADEQUATE (NORMAL) 03/21/16 11:35 Platelet Morphology GIANT PLATELETS SEEN (NORMAL) 03/21/16 11:35 Anisocytosis 1+ 03/21/16 06:19 Microcytosis 1+ 03/21/16 06:19 RBC Morph Micro Appear NORMAL (NORMAL) 03/21/16 11:35 PT 10.1 SECONDS (9.5-11.5) 03/20/16 06:55 INR 1.02 (0.5-1.4) 03/20/16 06:55 PTT (Actin FS) 27.6 SECONDS (26.0-38.0) 03/20/16 06:55 Specimen Source Arterial 03/21/16 12:20 Sample Site Right Radial 03/21/16 12:20 pH 7.39 (7.35-7.45) 03/21/16 12:20 pCO2 37.0 mmHg (35.0-45.0) 03/21/16 12:20 pO2 103.0 mmHg (80.0-100.0) H 03/21/16 12:20 HCO3 22.4 mmol/L (20.0-26.0) 03/21/16 12:20 Base Excess -2.2 mmol/L (-3.0-3.0) 03/21/16 12:20 O2 Saturation 98.0 % (92.0-100.0) 03/21/16 12:20 Galo Test YES 03/21/16 12:20 Vent Rate 12 03/21/16 12:20 Inspired O2 30 03/21/16 12:20 Tidal Volume 500 03/21/16 12:20 PEEP 5 03/21/16 12:20 Pressure (ins/psv/peep) NA 03/21/16 12:20 Critical Value E.HERNANDEZ 03/21/16 12:20 Sodium 135 mEq/L (136-145) L 03/21/16 06:19 Potassium 4.1 mEq/L (3.5-5.1) 03/21/16 06:19 Chloride 102 mEq/L (98-107) 03/21/16 06:19 Carbon Dioxide 28.4 mEq/L (21.0-31.0) 03/21/16 06:19 Anion Gap 8.7 (7.0-16.0) 03/21/16 06:19 BUN 6 mg/dL (7-25) L 03/21/16 06:19 Creatinine 1.0 mg/dL (0.7-1.3) 03/21/16 06:19 Est GFR ( Amer) > 60.0 ml/min (>90) 03/21/16 06:19 Est GFR (Non-Af Amer) > 60.0 ml/min 03/21/16 06:19 BUN/Creatinine Ratio 6.0 03/21/16 06:19 Glucose 94 mg/dL (70-105) 03/21/16 06:19 Calcium 9.0 mg/dL (8.6-10.3) 03/21/16 06:19 Magnesium 2.0 mg/dL (1.9-2.7) 03/11/16 06:30 Ferritin 136 ng/mL (30-400) 03/19/16 07:40 Total Bilirubin 0.3 mg/dL (0.3-1.0) 03/20/16 06:55 AST 18 U/L (13-39) 03/20/16 06:55 ALT 10 U/L (7-52) 03/20/16 06:55 Alkaline Phosphatase 91 U/L (34-104) 03/20/16 06:55 Ammonia 41 umol/L (16-53) 03/10/16 04:30 B-Natriuretic Peptide 36.6 pg/mL (5.0-100.0) 03/10/16 04:30 Total Protein 6.9 gm/dL (6.0-8.3) 03/20/16 06:55 Albumin 2.9 gm/dL (4.2-5.5) L 03/20/16 06:55 Globulin 4.0 gm/dL 03/20/16 06:55 Albumin/Globulin Ratio 0.7 (1.0-1.8) L 03/20/16 06:55 Carcinoembryonic Ag 2.7 ng/mL (0.0-4.7) 03/18/16 06:19 Vitamin B12 389 pg/mL (211-946) 03/10/16 04:30 Folic Acid 13.3 ng/mL (>3.0) 03/10/16 04:30 TSH 2.57 uIU/ml (0.34-5.60) 03/10/16 04:30 Urine Source CATH 03/13/16 16:00 Urine Color YELLOW 03/13/16 16:00 Urine Clarity CLEAR (CLEAR) 03/13/16 16:00 Urine pH 5.5 03/13/16 16:00 Ur Specific [place] 1.010 (1.005-1.030) 03/13/16 16:00 Urine Protein NEGATIVE mg/dL (NEGATIVE) 03/13/16 16:00 Urine Glucose (UA) NEGATIVE mg/dL (NEGATIVE) 03/13/16 16:00 Urine Ketones NEGATIVE mg/dL (NEGATIVE) 03/13/16 16:00 Urine Blood LARGE (NEGATIVE) H 03/13/16 16:00 Urine Nitrate NEGATIVE (NEGATIVE) 03/13/16 16:00 Urine Bilirubin NEGATIVE (NEGATIVE) 03/13/16 16:00 Urine Urobilinogen 1.0 E.U./dL (0.2 - 1.0) 03/13/16 16:00 Ur Leukocyte Esterase TRACE (NEGATIVE) H 03/13/16 16:00 Urine RBC 10-25 /hpf (0-5) H 03/13/16 16:00 Urine WBC 6-10 /hpf (0-5) H 03/13/16 16:00 Ur Epithelial Cells FEW /lpf (FEW) 03/13/16 16:00 Urine Bacteria OCCASIONAL /hpf (NONE SEEN) 03/13/16 16:00 Blood Type B POSITIVE 03/19/16 16:10 Antibody Screen NEGATIVE 03/19/16 16:10 Crossmatch See Detail 03/19/16 16:10 - Physical Exam Vitals and I&O: Vital Signs Temp 96.5 F 03/21/16 11:08 Pulse 95 03/21/16 14:30 Resp 12 03/21/16 11:15 BP 135/69 03/21/16 14:30 Pulse Ox 100 03/21/16 14:18 Intake & Output 03/20/16 03/21/16 03/21/16 18:59 06:59 18:59 Intake Total 300 93.353 Output Total 200 Balance 100 93.353 Weight (lbs) 58.513 kg Intake: Intake, IV Amount 100 93.353 Norepinephrine 4 mg In 33.02 Dextrose 5% 250 ml @ 4 MCG/MIN 15.24 mls/hr IV TITR PRN Rx#:[id number] Pantoprazole 80 mg In 100 60.333 Sodium Chloride 0.9% 100 ml @ 10 mls/hr IV Q10H [facility] Rx#:[id number] Oral 200 Output: Urine 200 Other: # Voids 3 Active Medications: Current Medications Acetaminophen (Tylenol) 650 mg PO Q6HR PRN PRN Reason: PAIN OR TEMP >100 Stop: 05/08/16 21:33 Last Admin: 03/12/16 09:37 Dose: 650 mg Acetaminophen/Codeine Phosphate (Tylenol W/Codeine #3) 1 tab PO Q4HR PRN PRN Reason: PAIN Stop: 05/08/16 21:33 Al Hydrox/Mg Hydrox/Simethicone (Maalox) 30 ml PO Q4HR PRN PRN Reason: Indigestion Stop: 05/08/16 21:33 Albuterol Sulfate (Albuterol 2.5mg/3ml Neb Ud) 2.5 mg IH Q2HR PRN PRN Reason: Shortness of Breath or Wheeze Stop: 05/08/16 21:37 Chlorhexidine Gluconate (Peridex) 15 ml MM 0800,2000 [facility] Stop: 05/20/16 19:59 Donepezil HCl (Aricept) 10 mg PO HS [facility] Stop: 05/09/16 20:59 Last Admin: 03/20/16 23:55 Dose: 10 mg Pantoprazole Sodium 80 mg/ (Sodium Chloride) 100 mls @ 10 mls/hr IV Q10H [facility] Stop: 05/08/16 21:44 Last Admin: 03/21/16 10:57 Dose: 10 mls/hr Dextrose/Sodium Chloride (D5-0.45ns) 1,000 mls @ 80 mls/hr IV .[id number] [facility] Stop: 05/18/16 12:59 Last Admin: 03/21/16 10:34 Dose: 80 mls/hr Piperacillin Sod/Tazobactam (Sod 3.375 gm/ Dextrose) 50 mls @ 100 mls/hr IV Q8H [facility] Stop: 05/20/16 09:14 Last Admin: 03/21/16 09:56 Dose: Not Given Metronidazole 500 mg/ (Miscellaneous) 100 mls @ 100 mls/hr IV Q8H [facility] Stop: 05/20/16 09:14 Last Admin: 03/21/16 09:55 Dose: Not Given Lactated Ringer's (Lactated Ringer) 1,000 mls @ 0 mls/hr IV .Q0M [facility] PRN Reason: TKO Stop: 03/22/16 09:44 Norepinephrine Bitartrate 4 mg (/ Dextrose) 254 mls @ 15.24 mls/hr IV TITR PRN ; Protocol; 4 MCG/MIN PRN Reason: BP MAINTENANCE (PER PROTOCOL) Stop: 05/20/16 11:23 Last Titration: 03/21/16 14:04 Dose: 2 mcg/min, 7.62 mls/hr Sodium Chloride (Nacl 0.9%) 1,000 mls @ 0 mls/hr IV .Q0M [facility] PRN Reason: Wide Open Stop: 05/20/16 11:44 Albumin Human (Albuminar 25%) 25 gm in 100 mls @ 100 mls/hr IV Q8H [facility] Stop: 03/22/16 04:44 Last Admin: 03/21/16 12:15 Dose: 100 mls/hr Meclizine HCl (Antivert) 25 mg PO DAILY PRN PRN Reason: Nausea / Vomiting Stop: 05/08/16 21:37 Meperidine HCl (Demerol) 25 mg IVP UD PRN PRN Reason: POST-OP PAIN Stop: 03/22/16 09:37 Mirtazapine (Remeron) 7.5 mg PO HS [facility] PRN Reason: Protocol Stop: 05/09/16 20:59 Last Admin: 03/20/16 23:54 Dose: 7.5 mg Miscellaneous (Vte Chemical Prophylaxis Screen/ Admission) 1 ea [facility] PRN PRN PRN Reason: PROTOCOL Stop: 05/10/16 17:12 Morphine Sulfate (Morphine) 2 mg IV Q3H PRN PRN Reason: Pain (Moderate) Stop: 05/20/16 10:29 Morphine Sulfate (Morphine) 2 mg IVP Q4HR PRN PRN Reason: Pain (Moderate) Stop: 05/20/16 13:00 Ondansetron HCl (Zofran) 4 mg IV Q8H PRN PRN Reason: Nausea / Vomiting Stop: 05/08/16 21:37 Quetiapine Fumarate (Seroquel) 100 mg PO QPM [facility] PRN Reason: Protocol Stop: 05/09/16 16:59 Last Admin: 03/19/16 17:42 Dose: 100 mg Tamsulosin HCl (Flomax) 0.4 mg PO DAILY [facility] Stop: 05/09/16 08:59 Last Admin: 03/21/16 09:55 Dose: Not Given General: lethargic, thin HEENT: other (ett) Neck: Supple Lungs: congested, rales Cardiovascular: RRR, Normal S1, Normal S2 Abdomen: soft non-tender, globular, other (colostory) Extremities: excoriation Neurological: no change - Procedures Procedures: Procedures Procedure Code Date BIOPSY OF BOWEL 22201 03/10/16 EGD BIOPSY SINGLE/MULTIPLE 64209 03/10/16 EXCISION OF LARGE INTESTINE, PERCUTANEOUS APPROACH, DIAGN [id number] 03/10/16 EXCISION OF STOMACH, ENDO, DIAGN [id number] 03/10/16 GROUP PSYCHOTHERAPY 01999 06/08/03 INDIVID PSYCHOTHERAP NEC 94.39 06/08/03 OTHER GROUP THERAPY 94.44 06/08/03 Internal Medicine Assmt/Plan - Assessment Assessment: colon mass- adenoca s\p recection colostomy jonathan drain GI BLEED ANEMIA HYPOTENSION leukocytosis malnutrition - Plan Plan: colostomy care picc line tpn cont on iv fluid abx check culture id and gi follow up dw rn check labs s\p sugical resection
[2016-03-21] MEDS ORDERED: FUROSEMIDE IV ONE (14:55)
[2016-03-21] MEDS ORDERED: DEXTROSE 5% IV ONE (14:55)
[2016-03-21] MEDS ORDERED: Amino Acids 3% / Electrolytes 1,000 ML IV SCH (17:00)
[2016-03-21 17:06] LABS: pH 7.37 (7.35-7.45)
[2016-03-21 17:07] LABS: ABG SOURCE Arterial; HCO3 23.1 mmol/L (20.0-26.0)
[2016-03-21 17:08] LABS: ALLEN TEST YES; FIO2 40
--- NOTE | 2016-03-21 18:54 | Operative Report ---
PREOPERATIVE DIAGNOSES: 1. Bleeding sigmoid mass, hemoglobin of 7.2 requiring 2 units of blood transfusion. 2. Adenocarcinoma of the sigmoid. 3. COPD. 4. Asthma. 5. Hypertension. 6. Dementia. POSTOPERATIVE DIAGNOSES: 1. Adherent mass in the sigmoid colon measuring approximately 15 cm with adherence to the bladder anteriorly and the posterior pelvic wall. 2. Small bowel attachment to the mass requiring resection and end-to-end anastomosis. OPERATION DONE: Exploratory laparotomy with 1. Resection of sigmoid colon mass (adenoCA) 2. Diverting colostomy 3. Stearns's pouch 4. lysis of adhesions 5. incidental appendectomy ESTIMATED BLOOD LOSS: 500 mL. SURGEON: Vidya Mancilla M.D. ANESTHESIA: General. ANESTHESIOLOGIST: Joleen Castro M.D. ESTIMATED BLOOD LOSS: 1 unit of packed red cells. INDICATIONS FOR SURGERY: This patient came in because of rectal bleeding and hemoglobin of 7.2 requiring 2 units of replacement. He refused colonoscopy, but underwent CT biopsy, which showed this to be adenocarcinoma. Brother was called several times over the phone, but no response whatsoever and 2 physicians signed the consent with the psych consultation documenting that the patient is unable to give his own consent. There is medical necessity for this procedure to prevent obstruction and recurrent blood loss. DESCRIPTION OF PROCEDURE: The patient was given general anesthesia. The abdomen was prepped with Betadine and draped in appropriate manner. An incision was made in the midline. Bleeders were electrocoagulated. Retractors applied. The mass was extremely hard, measuring about 15 x 20 cm as the greatest diameter. This adherent posteriorly to the pelvic outlet and anteriorly to the bladder. The adhesions of the distal ileum required resection of about a foot of small bowel. This was reanastomosed utilizing staplers. The ureters were identified and preserved. The adhesion to the bladder wall was lysed bluntly and sharply. Following the exploration, the mass was identified. Because of the adherence of small bowel, this was transected proximal and distal and reanastomosed utilizing JANELLE instrument. The staple line was reinforced with 3-0 silk and the mesentery was closed with the same material. Farther dissection into the pelvis finally freed the adherent mass from the pelvic wall and from the anterior bladder. Because of the extent of the mass inferiorly the normal bowel was resected and this was closed with running suture of 2-0 silk in two layers. The proximal portion of the descending colon was then transected and the mass was completely removed. Checked for hemostasis in the liver and spleen was negative. The descending colon was brought out as a colostomy in the left lower quadrant of the abdomen. The colon was sutured to the anterior abdominal wall and the pelvic wall to prevent internal herniation. The abdominal incision was closed with running suture of #1 PDS and the subcutaneous tissues were closed with 3-0 Vicryl. Cultures were taken from the open end of the colon prior to closure. A Ted-Posada drain was left in the pelvis. The skin was closed with xu. Incision was dressed to prevent any leakage from the colostomy to cause infection. The colostomy was matured utilizing everting suture of 4-0 Vicryl. Colostomy bag was placed over this. The patient will be sent to ICU. JOB# [id number] [id number]
[2016-03-21] MEDS: Albuterol Nebulizer 2.5mg/3mL HHN SCH ×2 (19:12→23:12)
[2016-03-21] MEDS: Chlorhexidine Gluconate 0.12% 15mL Mouthwash MM SCH (20:00)
[2016-03-22] MEDS: metroNIDAZOLE 500mg/NS 100mL 500 MG in Premix Fluid 1 BAG IV SCH ×3 (01:15→16:56)
[2016-03-22] MEDS: Albuterol Nebulizer 2.5mg/3mL HHN SCH ×6 (02:49→22:59)
[2016-03-22] MEDS: D5-0.45NS 1,000 ML IV SCH ×2 (02:58→13:00)
[2016-03-22] MEDS: Pantoprazole 80 MG in Sodium Chloride 0.9% 100 ML IV SCH ×2 (05:54→18:54)
[2016-03-22] MEDS ORDERED: Albumin 25% 25gm/100mL 25 GM/100 ML BTL IV ONE ×2 (06:04→06:05)
[2016-03-22] MEDS: Albumin 25% 25gm/100mL 25 GM/100 ML BTL IV SCH (06:11)
[2016-03-22 06:17] LABS: HEMATOCRIT 32.2 % (39.0-49.0); HEMOGLOBIN 10.7 gm/dL (12.6-17.4); MEAN CELL VOLUME 81.6 fl (80-99); MEAN CORPUSCULAR HEMOGLOBIN 27.2 pg (27.0-31.0); MEAN CORPUSCULAR HGB CONC 33.3 pg (28.0-36.0); MEAN PLATELET VOLUME 8.2 fl; PLATELET COUNT 362 Th/cmm (150-400); RED BLOOD COUNT 3.94 Mil/cmm (3.80-5.80); RED CELL DISTRIBUTION WIDTH 19.3 % (11.5-20.0)
[2016-03-22 06:35] LABS: WHITE BLOOD COUNT 26.9 Th/cmm (4.8-10.8)
[2016-03-22 06:44] LABS: ALKALINE PHOSPHATASE 79 U/L (34-104); ANION GAP 7.8 (7.0-16.0); BILIRUBIN,TOTAL 0.5 mg/dL (0.3-1.0); BUN - UREA NITROGEN 8 mg/dL (7-25); BUN/CREATININE RATIO 7.3; CALCIUM SERUM 8.9 mg/dL (8.6-10.3); CARBON DIOXIDE 27.2 mEq/L (21.0-31.0); CHLORIDE 102 mEq/L (98-107); CREATININE - SERUM 1.1 mg/dL (0.7-1.3); GLUCOSE 132 mg/dL (70-105); MAGNESIUM 1.7 mg/dL (1.9-2.7); PHOSPHOROUS 2.5 mg/dL (2.5-5.0); SGOT 20 U/L (13-39); SGPT/ALT 10 U/L (7-52); SODIUM SERUM 133 mEq/L (136-145)
[2016-03-22] MEDS: Chlorhexidine Gluconate 0.12% 15mL Mouthwash MM SCH ×2 (08:00→20:53)
[2016-03-22 08:28] LABS: BAND NEUTROPHILE 3 % (0-10); EOSINOPHIL 1 % (0-5); NEUTROPHILS 89 % (40-80); TOTAL CELLS COUNTED 100
[2016-03-22 08:29] LABS: ANISOCYTOSIS 1+; PLATELET ESTIMATE ADEQUATE (NORMAL); PLATELET MORPHOLOGY GIANT PLATELETS SEEN (NORMAL)
--- NOTE | 2016-03-22 09:56 | Diagnostic Imaging Report ---
CHEST X-RAY: AP view INDICATION: Shortness of breath COMPARISON: 03/21/2016 FINDINGS: The prior ET tube is been removed. No focal consolidation or pleural effusions. Heart size normal. Old left lower rib fractures are noted. IMPRESSION: No focal consolidation identified.
--- NOTE | 2016-03-22 12:06 | Infectious Disease Prog Note ---
Infectious Disease Subjective - Review of Systems Service Date: 03/22/16 Subjective: Extubated successfully. Infectious Disease Objective - Results Result Diagrams: 03/22/16 04:50 03/22/16 04:50 Recent Labs: Laboratory Last Values WBC 26.9 Th/cmm (4.8-10.8) H* 03/22/16 04:50 RBC 3.94 Mil/cmm (3.80-5.80) 03/22/16 04:50 Hgb 10.7 gm/dL (12.6-17.4) L 03/22/16 04:50 Hct 32.2 % (39.0-49.0) L 03/22/16 04:50 MCV 81.6 fl (80-99) 03/22/16 04:50 MCH 27.2 pg (27.0-31.0) 03/22/16 04:50 MCHC Differential 33.3 pg (28.0-36.0) 03/22/16 04:50 RDW 19.3 % (11.5-20.0) 03/22/16 04:50 Plt Count 362 Th/cmm (150-400) 03/22/16 04:50 MPV 8.2 fl 03/22/16 04:50 Neutrophils % 66.8 % (40.0-80.0) 03/17/16 06:19 Band Neutrophils % 3 % (0-10) 03/22/16 04:50 Lymphocytes % 12.9 % (20.0-50.0) L 03/17/16 06:19 Monocytes % 8.2 % (2.0-10.0) 03/17/16 06:19 Eosinophils % 11.8 % (0.0-5.0) H 03/17/16 06:19 Basophils % 0.3 % (0.0-2.0) 03/17/16 06:19 Neutrophils (Manual) 89 % (40-80) H 03/22/16 04:50 Lymphocytes 3 % (20-50) L 03/22/16 04:50 Monocytes 4 % (2-10) 03/22/16 04:50 Eosinophils 1 % (0-5) 03/22/16 04:50 Basophils 1 % (0-3) 03/12/16 08:00 Platelet Estimate ADEQUATE (NORMAL) 03/22/16 04:50 Platelet Morphology GIANT PLATELETS SEEN (NORMAL) 03/22/16 04:50 Anisocytosis 1+ 03/22/16 04:50 Microcytosis 1+ 03/21/16 06:19 RBC Morph Micro Appear ABNORMAL (NORMAL) 03/22/16 04:50 PT 10.1 SECONDS (9.5-11.5) 03/20/16 06:55 INR 1.02 (0.5-1.4) 03/20/16 06:55 PTT (Actin FS) 27.6 SECONDS (26.0-38.0) 03/20/16 06:55 Specimen Source Arterial 03/21/16 16:45 Sample Site Right Radial 03/21/16 16:45 pH 7.37 (7.35-7.45) 03/21/16 16:45 pCO2 40.0 mmHg (35.0-45.0) 03/21/16 16:45 pO2 85.0 mmHg (80.0-100.0) 03/21/16 16:45 HCO3 23.1 mmol/L (20.0-26.0) 03/21/16 16:45 Base Excess -2.0 mmol/L (-3.0-3.0) 03/21/16 16:45 O2 Saturation 96.0 % (92.0-100.0) 03/21/16 16:45 Galo Test YES 03/21/16 16:45 Vent Rate NA 03/21/16 16:45 Inspired O2 40 03/21/16 16:45 Tidal Volume NA 03/21/16 16:45 PEEP NA 03/21/16 16:45 Pressure (ins/psv/peep) NA 03/21/16 16:45 Critical Value E.HERNANDEZ 03/21/16 16:45 Sodium 133 mEq/L (136-145) L 03/22/16 04:50 Potassium 4.0 mEq/L (3.5-5.1) 03/22/16 04:50 Chloride 102 mEq/L (98-107) 03/22/16 04:50 Carbon Dioxide 27.2 mEq/L (21.0-31.0) 03/22/16 04:50 Anion Gap 7.8 (7.0-16.0) 03/22/16 04:50 BUN 8 mg/dL (7-25) 03/22/16 04:50 Creatinine 1.1 mg/dL (0.7-1.3) 03/22/16 04:50 Est GFR ( Amer) > 60.0 ml/min (>90) 03/22/16 04:50 Est GFR (Non-Af Amer) > 60.0 ml/min 03/22/16 04:50 BUN/Creatinine Ratio 7.3 03/22/16 04:50 Glucose 132 mg/dL (70-105) H 03/22/16 04:50 Calcium 8.9 mg/dL (8.6-10.3) 03/22/16 04:50 Phosphorus 2.5 mg/dL (2.5-5.0) 03/22/16 04:50 Magnesium 1.7 mg/dL (1.9-2.7) L 03/22/16 04:50 Ferritin 136 ng/mL (30-400) 03/19/16 07:40 Total Bilirubin 0.5 mg/dL (0.3-1.0) 03/22/16 04:50 AST 20 U/L (13-39) 03/22/16 04:50 ALT 10 U/L (7-52) 03/22/16 04:50 Alkaline Phosphatase 79 U/L (34-104) 03/22/16 04:50 Ammonia 41 umol/L (16-53) 03/10/16 04:30 B-Natriuretic Peptide 111.0 pg/mL (5.0-100.0) H 03/22/16 04:50 Total Protein 6.8 gm/dL (6.0-8.3) 03/22/16 04:50 Albumin 3.4 gm/dL (4.2-5.5) L 03/22/16 04:50 Globulin 3.4 gm/dL 03/22/16 04:50 Albumin/Globulin Ratio 1.0 (1.0-1.8) 03/22/16 04:50 Carcinoembryonic Ag 2.7 ng/mL (0.0-4.7) 03/18/16 06:19 Vitamin B12 389 pg/mL (211-946) 03/10/16 04:30 Folic Acid 13.3 ng/mL (>3.0) 03/10/16 04:30 TSH 2.57 uIU/ml (0.34-5.60) 03/10/16 04:30 Urine Source CATH 03/13/16 16:00 Urine Color YELLOW 03/13/16 16:00 Urine Clarity CLEAR (CLEAR) 03/13/16 16:00 Urine pH 5.5 03/13/16 16:00 Ur Specific [place] 1.010 (1.005-1.030) 03/13/16 16:00 Urine Protein NEGATIVE mg/dL (NEGATIVE) 03/13/16 16:00 Urine Glucose (UA) NEGATIVE mg/dL (NEGATIVE) 03/13/16 16:00 Urine Ketones NEGATIVE mg/dL (NEGATIVE) 03/13/16 16:00 Urine Blood LARGE (NEGATIVE) H 03/13/16 16:00 Urine Nitrate NEGATIVE (NEGATIVE) 03/13/16 16:00 Urine Bilirubin NEGATIVE (NEGATIVE) 03/13/16 16:00 Urine Urobilinogen 1.0 E.U./dL (0.2 - 1.0) 03/13/16 16:00 Ur Leukocyte Esterase TRACE (NEGATIVE) H 03/13/16 16:00 Urine RBC 10-25 /hpf (0-5) H 03/13/16 16:00 Urine WBC 6-10 /hpf (0-5) H 03/13/16 16:00 Ur Epithelial Cells FEW /lpf (FEW) 03/13/16 16:00 Urine Bacteria OCCASIONAL /hpf (NONE SEEN) 03/13/16 16:00 Blood Type B POSITIVE 03/19/16 16:10 Antibody Screen NEGATIVE 03/19/16 16:10 Crossmatch See Detail 03/19/16 16:10 - Physical Exam Vitals and I&O: Vital Signs Temp 98.1 F 03/22/16 08:00 Pulse 118 03/22/16 11:00 Resp 21 03/22/16 11:00 BP 139/63 03/22/16 11:00 Pulse Ox 99 03/22/16 11:00 Intake & Output 03/21/16 03/22/16 03/22/16 18:59 06:59 18:59 Intake Total 397.645 2775.333 200 Output Total 1720 1275 Balance -1321.440 528.333 200 Intake: Intake, IV Amount 528.313 5504.333 200 Albumin 25% 25gm/100mL 25 100 103.333 gm In 100 ml @ 100 mls/ hr IV Q8H REPLACED BY [facility] Rx#: [id number] D5-0.45NS 1,000 ml @ 80 1000 mls/hr IV .[id number] REPLACED BY [facility] Rx #:[id number] Norepinephrine 4 mg In 38.227 Dextrose 5% 250 ml @ 4 MCG/MIN 15.24 mls/hr IV TITR PRN Rx#:[id number] Pantoprazole 80 mg In 60.333 200 Sodium Chloride 0.9% 100 ml @ 10 mls/hr IV Q10H REPLACED BY [facility] Rx#:[id number] Piperacillin Sodium/ 200 100 Tazobact 4.5 gm In Sodium Chloride 0.9% 100 ml @ 100 mls/hr IV Q8H REPLACED BY [facility] Rx# :[id number] metroNIDAZOLE 500mg/NS 100 100 100 100mL 500 mg In Premix Fluid 1 bag @ 100 mls/hr IV Q8H REPLACED BY [facility] Rx#:[id number] Albumin 100 200 Output: Drainage 320 75 Left Lower Abdomen 320 75 Urine 1400 1200 Other: # Bowel Movements 0 Active Medications: Current Medications Acetaminophen (Tylenol) 650 mg PO Q6HR PRN PRN Reason: PAIN OR TEMP >100 Stop: 05/08/16 21:33 Last Admin: 03/12/16 09:37 Dose: 650 mg Acetaminophen/Codeine Phosphate (Tylenol W/Codeine #3) 1 tab PO Q4HR PRN PRN Reason: PAIN Stop: 05/08/16 21:33 Al Hydrox/Mg Hydrox/Simethicone (Maalox) 30 ml PO Q4HR PRN PRN Reason: Indigestion Stop: 05/08/16 21:33 Albuterol Sulfate (Albuterol 2.5mg/3ml Neb Ud) 2.5 mg IH Q2HR PRN PRN Reason: Shortness of Breath or Wheeze Stop: 05/08/16 21:37 Albuterol Sulfate (Albuterol 2.5mg/3ml Neb Ud) 2.5 mg HHN Q4HRT REPLACED BY [facility] Stop: 05/20/16 18:59 Last Admin: 03/22/16 07:07 Dose: 2.5 mg Chlorhexidine Gluconate (Peridex) 15 ml MM 0800,2000 REPLACED BY [facility] Stop: 05/20/16 19:59 Last Admin: 03/22/16 08:00 Dose: Not Given Donepezil HCl (Aricept) 10 mg PO [facility] Stop: 05/09/16 20:59 Last Admin: 03/21/16 20:01 Dose: 10 mg Pantoprazole Sodium 80 mg/ (Sodium Chloride) 100 mls @ 10 mls/hr IV Q10H REPLACED BY [facility] Stop: 05/08/16 21:44 Last Admin: 03/22/16 05:54 Dose: 10 mls/hr Dextrose/Sodium Chloride (D5-0.45ns) 1,000 mls @ 80 mls/hr IV .[id number] REPLACED BY [facility] Stop: 05/18/16 12:59 Last Admin: 03/22/16 02:58 Dose: 80 mls/hr Metronidazole 500 mg/ (Miscellaneous) 100 mls @ 100 mls/hr IV Q8H REPLACED BY [facility] Stop: 05/20/16 09:14 Last Infusion: 03/22/16 09:58 Dose: Infused Norepinephrine Bitartrate 4 mg (/ Dextrose) 254 mls @ 15.24 mls/hr IV TITR PRN ; Protocol; 4 MCG/MIN PRN Reason: BP MAINTENANCE (PER PROTOCOL) Stop: 05/20/16 11:23 Last Titration: 03/21/16 14:45 Dose: 0 mcg/min, 0 mls/hr Sodium Chloride (Nacl 0.9%) 1,000 mls @ 0 mls/hr IV .Q0M [facility] PRN Reason: Wide Open Stop: 05/20/16 11:44 Piperacillin Sod/Tazobactam (Sod 4.5 gm/ Sodium Chloride) 100 mls @ 100 mls/hr IV Q8H REPLACED BY [facility] Stop: 05/20/16 17:59 Last Infusion: 03/22/16 11:00 Dose: Infused Parenteral Electrolytes 20 ml/Multivitamins/Minerals 10 ml/Chromium/Copper/ Manganese/Zinc 1 ml/ Amino Acids 1,031 mls @ 70 mls/hr IV .[id number] REPLACED BY [facility] Stop: 04/18/16 14:59 Meclizine HCl (Antivert) 25 mg PO DAILY PRN PRN Reason: Nausea / Vomiting Stop: 05/08/16 21:37 Mirtazapine (Remeron) 7.5 mg PO HS [facility] PRN Reason: Protocol Stop: 05/09/16 20:59 Last Admin: 03/21/16 20:00 Dose: 7.5 mg Miscellaneous (Vte Chemical Prophylaxis Screen/ Admission) 1 ea [facility] PRN PRN PRN Reason: PROTOCOL Stop: 05/10/16 17:12 Miscellaneous (Tpn Per Pharmacy) 1 ea [facility] DAILY REPLACED BY [facility] Stop: 05/20/16 14:39 Morphine Sulfate (Morphine) 2 mg IV Q3H PRN PRN Reason: Pain (Moderate) Stop: 05/20/16 10:29 Morphine Sulfate (Morphine) 2 mg IVP Q4HR PRN PRN Reason: Pain (Moderate) Stop: 05/20/16 13:00 Ondansetron HCl (Zofran) 4 mg IV Q8H PRN PRN Reason: Nausea / Vomiting Stop: 05/08/16 21:37 Last Admin: 03/21/16 20:01 Dose: 4 mg Quetiapine Fumarate (Seroquel) 100 mg PO QPM [facility] PRN Reason: Protocol Stop: 05/09/16 16:59 Last Admin: 03/21/16 17:24 Dose: Not Given Tamsulosin HCl (Flomax) 0.4 mg PO DAILY REPLACED BY [facility] Stop: 05/09/16 08:59 Last Admin: 03/22/16 09:00 Dose: Not Given General: no acute distress, well developed, well nourished HEENT: atraumatic, normocephalic, PERRLA, EOMI Neck: supple, thyromegaly Cardiovascular: S1S2, regular Lungs: clear to auscultation bilaterally, clear to percussion Abdomen: soft, other (colostomy. REY drain.), no tender, no distended Extremities: no cyanosis, no clubbing, no edema Neurological: awake, alert, oriented, CN 2-12 intact Skin: intact - Procedures Procedures: Procedures Procedure Code Date APPENDECTOMY ADD-ON 37890 03/10/16 BIOPSY OF BOWEL 32696 03/10/16 BYPASS DESCENDING COLON TO CUTANEOUS, OPEN APPROACH [id number] 03/10/16 COLOSTOMY 46508 03/10/16 EGD BIOPSY SINGLE/MULTIPLE 55108 03/10/16 EXCISION OF ILEUM, OPEN APPROACH [id number] 03/10/16 EXCISION OF LARGE INTESTINE, PERCUTANEOUS APPROACH, DIAGN [id number] 03/10/16 EXCISION OF STOMACH, ENDO, DIAGN [id number] 03/10/16 FREEING OF BOWEL ADHESION 66141 03/10/16 GROUP PSYCHOTHERAPY 89651 06/08/03 INDIVID PSYCHOTHERAP NEC 94.39 06/08/03 OTHER GROUP THERAPY 94.44 06/08/03 RELEASE ILEUM, OPEN APPROACH [id number] 03/10/16 REMOVAL OF SMALL INTESTINE 44218 03/10/16 RESECTION OF APPENDIX, OPEN APPROACH [id number] 03/10/16 Infectious Disease Assmt/Plan - Problem List Patient Problems: All Active Problems BLOOD CLOT IN STOOL (Acute) - Assessment Assessment: Impression: 1. hypotension, post operative. r/o sepsis. 2, Intraabdominal mass? colon CA. associated colitis. 3. GI Bleed 2/2 #2. 4. Dementia. 5. History of hypertension. 6. s/p colectomy and colostomy. RECOMMENDATIONS: Continue zosyn.
--- NOTE | 2016-03-22 12:32 | Internal Medicine Prog Note ---
Internal Medicine Subjective - Subjective Service Date: 03/22/16 (awake, alert, s/p extubation 03/21/16 @1700, on room air no respiratory distress. ) Patient seen and examined:: with staff Patient is:: awake Internal Medicine Objective - Results Result Diagrams: 03/22/16 04:50 03/22/16 04:50 Recent Labs: Laboratory Last Values WBC 26.9 Th/cmm (4.8-10.8) H* 03/22/16 04:50 RBC 3.94 Mil/cmm (3.80-5.80) 03/22/16 04:50 Hgb 10.7 gm/dL (12.6-17.4) L 03/22/16 04:50 Hct 32.2 % (39.0-49.0) L 03/22/16 04:50 MCV 81.6 fl (80-99) 03/22/16 04:50 MCH 27.2 pg (27.0-31.0) 03/22/16 04:50 MCHC Differential 33.3 pg (28.0-36.0) 03/22/16 04:50 RDW 19.3 % (11.5-20.0) 03/22/16 04:50 Plt Count 362 Th/cmm (150-400) 03/22/16 04:50 MPV 8.2 fl 03/22/16 04:50 Neutrophils % 66.8 % (40.0-80.0) 03/17/16 06:19 Band Neutrophils % 3 % (0-10) 03/22/16 04:50 Lymphocytes % 12.9 % (20.0-50.0) L 03/17/16 06:19 Monocytes % 8.2 % (2.0-10.0) 03/17/16 06:19 Eosinophils % 11.8 % (0.0-5.0) H 03/17/16 06:19 Basophils % 0.3 % (0.0-2.0) 03/17/16 06:19 Neutrophils (Manual) 89 % (40-80) H 03/22/16 04:50 Lymphocytes 3 % (20-50) L 03/22/16 04:50 Monocytes 4 % (2-10) 03/22/16 04:50 Eosinophils 1 % (0-5) 03/22/16 04:50 Basophils 1 % (0-3) 03/12/16 08:00 Platelet Estimate ADEQUATE (NORMAL) 03/22/16 04:50 Platelet Morphology GIANT PLATELETS SEEN (NORMAL) 03/22/16 04:50 Anisocytosis 1+ 03/22/16 04:50 Microcytosis 1+ 03/21/16 06:19 RBC Morph Micro Appear ABNORMAL (NORMAL) 03/22/16 04:50 PT 10.1 SECONDS (9.5-11.5) 03/20/16 06:55 INR 1.02 (0.5-1.4) 03/20/16 06:55 PTT (Actin FS) 27.6 SECONDS (26.0-38.0) 03/20/16 06:55 Specimen Source Arterial 03/21/16 16:45 Sample Site Right Radial 03/21/16 16:45 pH 7.37 (7.35-7.45) 03/21/16 16:45 pCO2 40.0 mmHg (35.0-45.0) 03/21/16 16:45 pO2 85.0 mmHg (80.0-100.0) 03/21/16 16:45 HCO3 23.1 mmol/L (20.0-26.0) 03/21/16 16:45 Base Excess -2.0 mmol/L (-3.0-3.0) 03/21/16 16:45 O2 Saturation 96.0 % (92.0-100.0) 03/21/16 16:45 Galo Test YES 03/21/16 16:45 Vent Rate NA 03/21/16 16:45 Inspired O2 40 03/21/16 16:45 Tidal Volume NA 03/21/16 16:45 PEEP NA 03/21/16 16:45 Pressure (ins/psv/peep) NA 03/21/16 16:45 Critical Value E.HERNANDEZ 03/21/16 16:45 Sodium 133 mEq/L (136-145) L 03/22/16 04:50 Potassium 4.0 mEq/L (3.5-5.1) 03/22/16 04:50 Chloride 102 mEq/L (98-107) 03/22/16 04:50 Carbon Dioxide 27.2 mEq/L (21.0-31.0) 03/22/16 04:50 Anion Gap 7.8 (7.0-16.0) 03/22/16 04:50 BUN 8 mg/dL (7-25) 03/22/16 04:50 Creatinine 1.1 mg/dL (0.7-1.3) 03/22/16 04:50 Est GFR ( Amer) > 60.0 ml/min (>90) 03/22/16 04:50 Est GFR (Non-Af Amer) > 60.0 ml/min 03/22/16 04:50 BUN/Creatinine Ratio 7.3 03/22/16 04:50 Glucose 132 mg/dL (70-105) H 03/22/16 04:50 Calcium 8.9 mg/dL (8.6-10.3) 03/22/16 04:50 Phosphorus 2.5 mg/dL (2.5-5.0) 03/22/16 04:50 Magnesium 1.7 mg/dL (1.9-2.7) L 03/22/16 04:50 Ferritin 136 ng/mL (30-400) 03/19/16 07:40 Total Bilirubin 0.5 mg/dL (0.3-1.0) 03/22/16 04:50 AST 20 U/L (13-39) 03/22/16 04:50 ALT 10 U/L (7-52) 03/22/16 04:50 Alkaline Phosphatase 79 U/L (34-104) 03/22/16 04:50 Ammonia 41 umol/L (16-53) 03/10/16 04:30 B-Natriuretic Peptide 111.0 pg/mL (5.0-100.0) H 03/22/16 04:50 Total Protein 6.8 gm/dL (6.0-8.3) 03/22/16 04:50 Albumin 3.4 gm/dL (4.2-5.5) L 03/22/16 04:50 Globulin 3.4 gm/dL 03/22/16 04:50 Albumin/Globulin Ratio 1.0 (1.0-1.8) 03/22/16 04:50 Carcinoembryonic Ag 2.7 ng/mL (0.0-4.7) 03/18/16 06:19 Vitamin B12 389 pg/mL (211-946) 03/10/16 04:30 Folic Acid 13.3 ng/mL (>3.0) 03/10/16 04:30 TSH 2.57 uIU/ml (0.34-5.60) 03/10/16 04:30 Urine Source CATH 03/13/16 16:00 Urine Color YELLOW 03/13/16 16:00 Urine Clarity CLEAR (CLEAR) 03/13/16 16:00 Urine pH 5.5 03/13/16 16:00 Ur Specific [place] 1.010 (1.005-1.030) 03/13/16 16:00 Urine Protein NEGATIVE mg/dL (NEGATIVE) 03/13/16 16:00 Urine Glucose (UA) NEGATIVE mg/dL (NEGATIVE) 03/13/16 16:00 Urine Ketones NEGATIVE mg/dL (NEGATIVE) 03/13/16 16:00 Urine Blood LARGE (NEGATIVE) H 03/13/16 16:00 Urine Nitrate NEGATIVE (NEGATIVE) 03/13/16 16:00 Urine Bilirubin NEGATIVE (NEGATIVE) 03/13/16 16:00 Urine Urobilinogen 1.0 E.U./dL (0.2 - 1.0) 03/13/16 16:00 Ur Leukocyte Esterase TRACE (NEGATIVE) H 03/13/16 16:00 Urine RBC 10-25 /hpf (0-5) H 03/13/16 16:00 Urine WBC 6-10 /hpf (0-5) H 03/13/16 16:00 Ur Epithelial Cells FEW /lpf (FEW) 03/13/16 16:00 Urine Bacteria OCCASIONAL /hpf (NONE SEEN) 03/13/16 16:00 Blood Type B POSITIVE 03/19/16 16:10 Antibody Screen NEGATIVE 03/19/16 16:10 Crossmatch See Detail 03/19/16 16:10 - Physical Exam Vitals and I&O: Vital Signs Temp 98.1 F 03/22/16 08:00 Pulse 118 03/22/16 11:00 Resp 21 03/22/16 11:00 BP 139/63 03/22/16 11:00 Pulse Ox 99 03/22/16 11:00 Intake & Output 03/21/16 03/22/16 03/22/16 18:59 06:59 18:59 Intake Total 530.245 7905.333 200 Output Total 1720 1275 Balance -1321.440 528.333 200 Intake: Intake, IV Amount 724.197 5820.333 200 Albumin 25% 25gm/100mL 25 100 103.333 gm In 100 ml @ 100 mls/ hr IV Q8H [facility] Rx#: [id number] D5-0.45NS 1,000 ml @ 80 1000 mls/hr IV .[id number] [facility] Rx #:[id number] Norepinephrine 4 mg In 38.227 Dextrose 5% 250 ml @ 4 MCG/MIN 15.24 mls/hr IV TITR PRN Rx#:[id number] Pantoprazole 80 mg In 60.333 200 Sodium Chloride 0.9% 100 ml @ 10 mls/hr IV Q10H [facility] Rx#:[id number] Piperacillin Sodium/ 200 100 Tazobact 4.5 gm In Sodium Chloride 0.9% 100 ml @ 100 mls/hr IV Q8H [facility] Rx# :[id number] metroNIDAZOLE 500mg/NS 100 100 100 100mL 500 mg In Premix Fluid 1 bag @ 100 mls/hr IV Q8H [facility] Rx#:[id number] Albumin 100 200 Output: Drainage 320 75 Left Lower Abdomen 320 75 Urine 1400 1200 Other: # Bowel Movements 0 Active Medications: Current Medications Acetaminophen (Tylenol) 650 mg PO Q6HR PRN PRN Reason: PAIN OR TEMP >100 Stop: 05/08/16 21:33 Last Admin: 03/12/16 09:37 Dose: 650 mg Acetaminophen/Codeine Phosphate (Tylenol W/Codeine #3) 1 tab PO Q4HR PRN PRN Reason: PAIN Stop: 05/08/16 21:33 Al Hydrox/Mg Hydrox/Simethicone (Maalox) 30 ml PO Q4HR PRN PRN Reason: Indigestion Stop: 05/08/16 21:33 Albuterol Sulfate (Albuterol 2.5mg/3ml Neb Ud) 2.5 mg IH Q2HR PRN PRN Reason: Shortness of Breath or Wheeze Stop: 05/08/16 21:37 Albuterol Sulfate (Albuterol 2.5mg/3ml Neb Ud) 2.5 mg HHN Q4HRT [facility] Stop: 05/20/16 18:59 Last Admin: 03/22/16 07:07 Dose: 2.5 mg Chlorhexidine Gluconate (Peridex) 15 ml MM 0800,2000 [facility] Stop: 05/20/16 19:59 Last Admin: 03/22/16 08:00 Dose: Not Given Donepezil HCl (Aricept) 10 mg PO HS [facility] Stop: 05/09/16 20:59 Last Admin: 03/21/16 20:01 Dose: 10 mg Pantoprazole Sodium 80 mg/ (Sodium Chloride) 100 mls @ 10 mls/hr IV Q10H [facility] Stop: 05/08/16 21:44 Last Admin: 03/22/16 05:54 Dose: 10 mls/hr Dextrose/Sodium Chloride (D5-0.45ns) 1,000 mls @ 40 mls/hr IV .Q24H [facility] Stop: 05/18/16 12:59 Last Admin: 03/22/16 02:58 Dose: 80 mls/hr Metronidazole 500 mg/ (Miscellaneous) 100 mls @ 100 mls/hr IV Q8H [facility] Stop: 05/20/16 09:14 Last Infusion: 03/22/16 09:58 Dose: Infused Norepinephrine Bitartrate 4 mg (/ Dextrose) 254 mls @ 15.24 mls/hr IV TITR PRN ; Protocol; 4 MCG/MIN PRN Reason: BP MAINTENANCE (PER PROTOCOL) Stop: 05/20/16 11:23 Last Titration: 03/21/16 14:45 Dose: 0 mcg/min, 0 mls/hr Sodium Chloride (Nacl 0.9%) 1,000 mls @ 0 mls/hr IV .Q0M [facility] PRN Reason: Wide Open Stop: 05/20/16 11:44 Piperacillin Sod/Tazobactam (Sod 4.5 gm/ Sodium Chloride) 100 mls @ 100 mls/hr IV Q8H [facility] Stop: 05/20/16 17:59 Last Infusion: 03/22/16 11:00 Dose: Infused Parenteral Electrolytes 20 ml/Multivitamins/Minerals 10 ml/Chromium/Copper/ Manganese/Zinc 1 ml/ Amino Acids 1,031 mls @ 70 mls/hr IV .[id number] [facility] Stop: 04/18/16 14:59 Meclizine HCl (Antivert) 25 mg PO DAILY PRN PRN Reason: Nausea / Vomiting Stop: 05/08/16 21:37 Mirtazapine (Remeron) 7.5 mg PO [facility] PRN Reason: Protocol Stop: 05/09/16 20:59 Last Admin: 03/21/16 20:00 Dose: 7.5 mg Miscellaneous (Vte Chemical Prophylaxis Screen/ Admission) 1 ea [facility] PRN PRN PRN Reason: PROTOCOL Stop: 05/10/16 17:12 Miscellaneous (Tpn Per Pharmacy) 1 ea [facility] DAILY [facility] Stop: 05/20/16 14:39 Morphine Sulfate (Morphine) 2 mg IV Q3H PRN PRN Reason: Pain (Moderate) Stop: 05/20/16 10:29 Morphine Sulfate (Morphine) 2 mg IVP Q4HR PRN PRN Reason: Pain (Moderate) Stop: 05/20/16 13:00 Ondansetron HCl (Zofran) 4 mg IV Q8H PRN PRN Reason: Nausea / Vomiting Stop: 05/08/16 21:37 Last Admin: 03/21/16 20:01 Dose: 4 mg Quetiapine Fumarate (Seroquel) 100 mg PO QPM [facility] PRN Reason: Protocol Stop: 05/09/16 16:59 Last Admin: 03/21/16 17:24 Dose: Not Given Tamsulosin HCl (Flomax) 0.4 mg PO DAILY [facility] Stop: 05/09/16 08:59 Last Admin: 03/22/16 09:00 Dose: Not Given General: weak, alert HEENT: NC/AT Neck: Supple Lungs: ronchi Cardiovascular: RRR, Normal S1, Normal S2, without murmur Abdomen: soft non-tender, non-distended Extremities: clear - Procedures Procedures: Procedures Procedure Code Date APPENDECTOMY ADD-ON 00235 03/10/16 BIOPSY OF BOWEL 68795 03/10/16 BYPASS DESCENDING COLON TO CUTANEOUS, OPEN APPROACH [id number] 03/10/16 COLOSTOMY 59785 03/10/16 EGD BIOPSY SINGLE/MULTIPLE 33812 03/10/16 EXCISION OF ILEUM, OPEN APPROACH [id number] 03/10/16 EXCISION OF LARGE INTESTINE, PERCUTANEOUS APPROACH, DIAGN [id number] 03/10/16 EXCISION OF STOMACH, ENDO, DIAGN [id number] 03/10/16 FREEING OF BOWEL ADHESION 78841 03/10/16 GROUP PSYCHOTHERAPY 55993 06/08/03 INDIVID PSYCHOTHERAP NEC 94.39 06/08/03 OTHER GROUP THERAPY 94.44 06/08/03 RELEASE ILEUM, OPEN APPROACH [id number] 03/10/16 REMOVAL OF SMALL INTESTINE 78142 03/10/16 RESECTION OF APPENDIX, OPEN APPROACH [id number] 03/10/16 Internal Medicine Assmt/Plan - Assessment Assessment: colon mass- adenoca s\p recection colostomy jonathan drain GI BLEED ANEMIA HYPOTENSION leukocytosis malnutrition - Plan Plan: continue ivabx ltac eval colostomy care cbc/bmp in am monitor for any resp. distress
--- NOTE | 2016-03-22 13:57 | Pathology Report ---
[id number] Collection date: 03/21/2016 Surgeon: Dr. Bethel Mancilla. Specimen Description: 1. Sigmoid Colon and small bowel. 2. Appendix. Gross Description: Part I: Received in formalin is a partial colon resection specimen measuring 28 cm in length x up to 7.5 cm in diameter, with a twisted and bulging area along one side of the specimen. Multiple lyon lymph nodes are identified on the outer serosa surface where there is a small amount of attached yellow fatty tissue. Opening the specimen reveals a large circumferential lyon exophytic tumor measuring 9 cm in greatest dimension, filling up the entire lumen. Sectioning shows lyon tumor invasion through most of the thickness of the muscular wall, extending very close to the outer serosal surface of the colon (inked black as a margin). The tumor has a raised, somewhat polypoid appearance that extends to within 4.5 cm of the nearest mucosal margin. Both proximal and distal mucosal margins are grossly free of any tumor involvement. Also received in the same container are two segments of small bowel measuring 30 cm in length x 1.8 cm in diameter and 20 cm in length x 1.7 cm in diameter. Both segments of small bowel show fibrous adhesions on the outer serosal surface, and sectioning shows the normal folded mucosa with no mass lesions appreciated. [employer] Assistant sections are submitted in 12 cassettes labeled A1 to A12. Cassette A1 and A2 show the mucosal margin, cassette A3 to A5 show the tumor mass, cassette A6 to A10 show the lymph nodes, and cassette A11 to A12 show the small bowel. Gross Description: Part II: Received in formalin is a normal-appearing appendix measuring 7.5 cm in length x 1.5 cm in diameter. Sectioning shows an intact wall and lumen with no focal lesions appreciated. Tiler'S Assistant sections are submitted in one cassette labeled B. Microscopic Description: Part I: The histologic sections show infiltrating adenocarcinoma extending through the mucosa and invading through most of the muscular wall of the colon. The tumor focally involves the outer serosal surface (inked black). The tumor cells form distinct glandular structures that are lined by atypical cells with enlarged pleomorphic nuclei and prominent nucleoli. Areas of necrosis are appreciated, but most of the tumor cells form distinct glandular structures consistent with a moderately-well differentiated adenocarcinoma. There is no evidence for lymphovascular tumor involvement and no evidence for tumor is seen in the ten pericolic lymph nodes examined. The proximal and distal mucosal margins are free of tumor involement. The small bowel shows show fibrous adhesions on the outer surface, and no evidence for tumor involvement. Diagnosis: Part I: 1. Infiltrating moderately-well differentiated adenocarcinoma, sigmoid colon. 2. The tumor invades through the mucosa and muscular wall of the colon, with focal involvement of the outer serosal surface. 3. No evidence for tumor is seen in the ten pericolic lymph nodes examined. 4. There is no evidence for tumor at the proximal and distal mucosal margins. 5. Fibrous adhesions are seen on the outer surface of the small bowel. Comment: The tumor measures 9 cm in greatest dimension and extends through the entire muscular wall of the colon ([place] B, Astler-Coller B2). The mucosal margins are cleared by more than 4 cm, and there is no evidence for lymph node involvement. This would be classified as T3,N0 under the TNM system. Recommend clinical follow-up and further evaluation for the possibility of metastatic disease. Microscopic Description: Part II: The histologic sections show appendix with no significant abnormalities. Diagnosis: Part II: Incidental appendectomy. [facility]# [id number] [facility]
[2016-03-22] MEDS ORDERED: Mag Sulfate 2gm/50mL Premix 2 GM/50 ML BAG IV ONE (14:00)
--- NOTE | 2016-03-22 14:10 | Consultation ---
REFERRING PHYSICIAN: Dr. Plaza. Thank you very much Dr. Plaza for this consultation. HISTORY OF PRESENT ILLNESS: This is a 70-year-old male who underwent exploratory laparotomy, status post GI bleed, status post sigmoid resection and colostomy, small bowel resection, anastomosis. The patient was kept on the ventilator postoperatively. We were called for evaluation. The patient appears to be comfortable, awake, alert, wants the tube out. He is responding appropriate to questions, does not have any distress. He has history of many years of smoking, continues to smoke. PHYSICAL EXAMINATION: VITAL SIGNS: Temperature 96.2, pulse is 82, respiration is 14, blood pressure 130/67, saturation 100%. HEENT: Atraumatic, normocephalic. Pupils reactive to light and accommodation. Ears, nose and throat normal. NECK: Supple. CHEST: There are good breath sounds. Few rhonchi in bases. HEART: Regular. ABDOMEN: Soft. EXTREMITIES: No edema. Chest x-ray clear, ET tube in place. WBC is 23.8, hemoglobin 11.3, hematocrit 34.5, platelets 365. Sodium is 135, potassium 4.1, creatinine 1. ABGs, pH 7.3, pCO2 of 37, pO2 103, bicarbonate 22. IMPRESSION: This is a 70-year-old male status post abdominal surgery, appears to be doing well postoperatively, possible underlying chronic obstructive pulmonary disease. Chest x-ray clear. PLAN: 1. Wean off and extubate as tolerated. 2. Add nebulizer. 3. Give 1 dose of Lasix. [facility]# [id number] MTDD
[2016-03-22] MEDS ORDERED: Probiotic Screen MC PRN (14:40)
[2016-03-22] MEDS ORDERED: PPN D20%/AMI 8.5% IV SCH (15:00)
[2016-03-23] MEDS: metroNIDAZOLE 500mg/NS 100mL 500 MG in Premix Fluid 1 BAG IV SCH ×3 (01:30→18:16)
[2016-03-23] MEDS: Pantoprazole 80 MG in Sodium Chloride 0.9% 100 ML IV SCH ×2 (05:30→21:04)
[2016-03-23 06:58] LABS: HEMATOCRIT 33.2 % (39.0-49.0); HEMOGLOBIN 11.2 gm/dL (12.6-17.4); MEAN CELL VOLUME 80.8 fl (80-99); MEAN CORPUSCULAR HEMOGLOBIN 27.3 pg (27.0-31.0); MEAN CORPUSCULAR HGB CONC 33.8 pg (28.0-36.0); MEAN PLATELET VOLUME 8.3 fl; PLATELET COUNT 360 Th/cmm (150-400); RED BLOOD COUNT 4.11 Mil/cmm (3.80-5.80); RED CELL DISTRIBUTION WIDTH 20.5 % (11.5-20.0)
[2016-03-23] MEDS: Albuterol Nebulizer 2.5mg/3mL HHN SCH ×5 (07:12→20:15)
[2016-03-23 07:28] LABS: WHITE BLOOD COUNT 29.8 Th/cmm (4.8-10.8)
[2016-03-23 07:34] LABS: ANION GAP 12.2 (7.0-16.0); BUN - UREA NITROGEN 11 mg/dL (7-25); CALCIUM SERUM 9.6 mg/dL (8.6-10.3); CARBON DIOXIDE 25.6 mEq/L (21.0-31.0); CHLORIDE 101 mEq/L (98-107); CREATININE - SERUM 1.1 mg/dL (0.7-1.3); GLUCOSE 120 mg/dL (70-105); POTASSIUM SERUM 3.8 mEq/L (3.5-5.1); SODIUM SERUM 135 mEq/L (136-145)
[2016-03-23 08:41] LABS: BAND NEUTROPHILE 2 % (0-10); NEUTROPHILS 90 % (40-80); TOTAL CELLS COUNTED 100
[2016-03-23 08:43] LABS: ANISOCYTOSIS 1+; PLATELET ESTIMATE ADEQUATE (NORMAL); PLATELET MORPHOLOGY NORMAL (NORMAL)
[2016-03-23] MEDS: Enoxaparin 30 mg/0.3 mL 0.3mL Syr SUBQ SCH (09:17)
[2016-03-23] MEDS: Chlorhexidine Gluconate 0.12% 15mL Mouthwash MM SCH (09:17)
[2016-03-23] MEDS: Lactobacillus Rhamnosus 10 Billion CFU Capsule PO SCH (09:17)
--- NOTE | 2016-03-23 14:43 | Internal Medicine Prog Note ---
Internal Medicine Subjective - Subjective Service Date: 03/23/16 Patient seen and examined:: with staff Patient is:: awake, verbal Per staff patient is:: no adverse event Internal Medicine Objective - Results Result Diagrams: 03/23/16 06:43 03/23/16 06:43 Recent Labs: Laboratory Last Values WBC 29.8 Th/cmm (4.8-10.8) H* 03/23/16 06:43 RBC 4.11 Mil/cmm (3.80-5.80) 03/23/16 06:43 Hgb 11.2 gm/dL (12.6-17.4) L 03/23/16 06:43 Hct 33.2 % (39.0-49.0) L 03/23/16 06:43 MCV 80.8 fl (80-99) 03/23/16 06:43 MCH 27.3 pg (27.0-31.0) 03/23/16 06:43 MCHC Differential 33.8 pg (28.0-36.0) 03/23/16 06:43 RDW 20.5 % (11.5-20.0) H 03/23/16 06:43 Plt Count 360 Th/cmm (150-400) 03/23/16 06:43 MPV 8.3 fl 03/23/16 06:43 Neutrophils % 66.8 % (40.0-80.0) 03/17/16 06:19 Band Neutrophils % 2 % (0-10) 03/23/16 06:43 Lymphocytes % 12.9 % (20.0-50.0) L 03/17/16 06:19 Monocytes % 8.2 % (2.0-10.0) 03/17/16 06:19 Eosinophils % 11.8 % (0.0-5.0) H 03/17/16 06:19 Basophils % 0.3 % (0.0-2.0) 03/17/16 06:19 Neutrophils (Manual) 90 % (40-80) H 03/23/16 06:43 Lymphocytes 3 % (20-50) L 03/23/16 06:43 Monocytes 5 % (2-10) 03/23/16 06:43 Eosinophils 1 % (0-5) 03/22/16 04:50 Basophils 1 % (0-3) 03/12/16 08:00 Platelet Estimate ADEQUATE (NORMAL) 03/23/16 06:43 Platelet Morphology NORMAL (NORMAL) 03/23/16 06:43 Anisocytosis 1+ 03/23/16 06:43 Microcytosis 1+ 03/21/16 06:19 RBC Morph Micro Appear ABNORMAL (NORMAL) 03/23/16 06:43 PT 10.1 SECONDS (9.5-11.5) 03/20/16 06:55 INR 1.02 (0.5-1.4) 03/20/16 06:55 PTT (Actin FS) 27.6 SECONDS (26.0-38.0) 03/20/16 06:55 Specimen Source Arterial 03/21/16 16:45 Sample Site Right Radial 03/21/16 16:45 pH 7.37 (7.35-7.45) 03/21/16 16:45 pCO2 40.0 mmHg (35.0-45.0) 03/21/16 16:45 pO2 85.0 mmHg (80.0-100.0) 03/21/16 16:45 HCO3 23.1 mmol/L (20.0-26.0) 03/21/16 16:45 Base Excess -2.0 mmol/L (-3.0-3.0) 03/21/16 16:45 O2 Saturation 96.0 % (92.0-100.0) 03/21/16 16:45 Galo Test YES 03/21/16 16:45 Vent Rate NA 03/21/16 16:45 Inspired O2 40 03/21/16 16:45 Tidal Volume NA 03/21/16 16:45 PEEP NA 03/21/16 16:45 Pressure (ins/psv/peep) NA 03/21/16 16:45 Critical Value E.HERNANDEZ 03/21/16 16:45 Sodium 135 mEq/L (136-145) L 03/23/16 06:43 Potassium 3.8 mEq/L (3.5-5.1) 03/23/16 06:43 Chloride 101 mEq/L (98-107) 03/23/16 06:43 Carbon Dioxide 25.6 mEq/L (21.0-31.0) 03/23/16 06:43 Anion Gap 12.2 (7.0-16.0) 03/23/16 06:43 BUN 11 mg/dL (7-25) 03/23/16 06:43 Creatinine 1.1 mg/dL (0.7-1.3) 03/23/16 06:43 Est GFR ( Amer) > 60.0 ml/min (>90) 03/23/16 06:43 Est GFR (Non-Af Amer) > 60.0 ml/min 03/23/16 06:43 BUN/Creatinine Ratio 10.0 03/23/16 06:43 Glucose 120 mg/dL (70-105) H 03/23/16 06:43 Calcium 9.6 mg/dL (8.6-10.3) 03/23/16 06:43 Phosphorus 2.5 mg/dL (2.5-5.0) 03/22/16 04:50 Magnesium 1.7 mg/dL (1.9-2.7) L 03/22/16 04:50 Ferritin 136 ng/mL (30-400) 03/19/16 07:40 Total Bilirubin 0.5 mg/dL (0.3-1.0) 03/22/16 04:50 AST 20 U/L (13-39) 03/22/16 04:50 ALT 10 U/L (7-52) 03/22/16 04:50 Alkaline Phosphatase 79 U/L (34-104) 03/22/16 04:50 Ammonia 41 umol/L (16-53) 03/10/16 04:30 B-Natriuretic Peptide 111.0 pg/mL (5.0-100.0) H 03/22/16 04:50 Total Protein 6.8 gm/dL (6.0-8.3) 03/22/16 04:50 Albumin 3.4 gm/dL (4.2-5.5) L 03/22/16 04:50 Globulin 3.4 gm/dL 03/22/16 04:50 Albumin/Globulin Ratio 1.0 (1.0-1.8) 03/22/16 04:50 Carcinoembryonic Ag 2.7 ng/mL (0.0-4.7) 03/18/16 06:19 Vitamin B12 389 pg/mL (211-946) 03/10/16 04:30 Folic Acid 13.3 ng/mL (>3.0) 03/10/16 04:30 TSH 2.57 uIU/ml (0.34-5.60) 03/10/16 04:30 Urine Source CATH 03/13/16 16:00 Urine Color YELLOW 03/13/16 16:00 Urine Clarity CLEAR (CLEAR) 03/13/16 16:00 Urine pH 5.5 03/13/16 16:00 Ur Specific Peterson 1.010 (1.005-1.030) 03/13/16 16:00 Urine Protein NEGATIVE mg/dL (NEGATIVE) 03/13/16 16:00 Urine Glucose (UA) NEGATIVE mg/dL (NEGATIVE) 03/13/16 16:00 Urine Ketones NEGATIVE mg/dL (NEGATIVE) 03/13/16 16:00 Urine Blood LARGE (NEGATIVE) H 03/13/16 16:00 Urine Nitrate NEGATIVE (NEGATIVE) 03/13/16 16:00 Urine Bilirubin NEGATIVE (NEGATIVE) 03/13/16 16:00 Urine Urobilinogen 1.0 E.U./dL (0.2 - 1.0) 03/13/16 16:00 Ur Leukocyte Esterase TRACE (NEGATIVE) H 03/13/16 16:00 Urine RBC 10-25 /hpf (0-5) H 03/13/16 16:00 Urine WBC 6-10 /hpf (0-5) H 03/13/16 16:00 Ur Epithelial Cells FEW /lpf (FEW) 03/13/16 16:00 Urine Bacteria OCCASIONAL /hpf (NONE SEEN) 03/13/16 16:00 Blood Type B POSITIVE 03/19/16 16:10 Antibody Screen NEGATIVE 03/19/16 16:10 Crossmatch See Detail 03/19/16 16:10 - Physical Exam Vitals and I&O: Vital Signs Temp 99 F 03/23/16 08:00 Pulse 78 03/23/16 11:12 Resp 20 03/23/16 11:12 BP 151/88 03/23/16 08:00 Pulse Ox 97 03/23/16 11:12 Intake & Output 03/22/16 03/23/16 03/23/16 18:59 06:59 18:59 Intake Total 1450 300 300 Balance 1450 300 300 Intake: Intake, IV Amount 1450 300 300 D5-0.45NS 1,000 ml @ 40 1000 mls/hr IV .Q24H ON LICENSE OF [facility] Rx#: [id number] Pantoprazole 80 mg In 100 100 Sodium Chloride 0.9% 100 ml @ 10 mls/hr IV Q10H ON LICENSE OF [facility] Rx#:[id number] Piperacillin Sodium/ 100 200 100 Tazobact 4.5 gm In Sodium Chloride 0.9% 100 ml @ 100 mls/hr IV Q8H ON LICENSE OF [facility] Rx# :[id number] metroNIDAZOLE 500mg/NS 200 200 100mL 500 mg In Premix Fluid 1 bag @ 100 mls/hr IV Q8H ON LICENSE OF [facility] Rx#:[id number] Active Medications: Current Medications Acetaminophen (Tylenol) 650 mg PO Q6HR PRN PRN Reason: PAIN OR TEMP >100 Stop: 05/08/16 21:33 Last Admin: 03/12/16 09:37 Dose: 650 mg Acetaminophen/Codeine Phosphate (Tylenol W/Codeine #3) 1 tab PO Q4HR PRN PRN Reason: PAIN Stop: 05/08/16 21:33 Al Hydrox/Mg Hydrox/Simethicone (Maalox) 30 ml PO Q4HR PRN PRN Reason: Indigestion Stop: 05/08/16 21:33 Albuterol Sulfate (Albuterol 2.5mg/3ml Neb Ud) 2.5 mg IH Q2HR PRN PRN Reason: Shortness of Breath or Wheeze Stop: 05/08/16 21:37 Albuterol Sulfate (Albuterol 2.5mg/3ml Neb Ud) 2.5 mg HHN Q4HRT ON LICENSE OF [facility] Stop: 05/20/16 18:59 Last Admin: 03/23/16 11:12 Dose: 2.5 mg Chlorhexidine Gluconate (Peridex) 15 ml MM 0800,1999 ON LICENSE OF [facility] Stop: 05/20/16 19:59 Last Admin: 03/23/16 09:17 Dose: Not Given Donepezil HCl (Aricept) 10 mg PO HS ON LICENSE OF [facility] Stop: 05/09/16 20:59 Last Admin: 03/22/16 20:52 Dose: 10 mg Enoxaparin Sodium (Lovenox) 30 mg SUBQ DAILY ON LICENSE OF [facility] Stop: 05/22/16 08:59 Last Admin: 03/23/16 09:17 Dose: 30 mg Pantoprazole Sodium 80 mg/ (Sodium Chloride) 100 mls @ 10 mls/hr IV Q10H ON LICENSE OF [facility] Stop: 05/08/16 21:44 Last Admin: 03/23/16 05:30 Dose: 10 mls/hr Dextrose/Sodium Chloride (D5-0.45ns) 1,000 mls @ 40 mls/hr IV .Q24H ON LICENSE OF [facility] Stop: 05/18/16 12:59 Last Admin: 03/22/16 13:00 Dose: 40 mls/hr Metronidazole 500 mg/ (Miscellaneous) 100 mls @ 100 mls/hr IV Q8H ON LICENSE OF [facility] Stop: 05/20/16 09:14 Last Infusion: 03/23/16 11:46 Dose: Infused Norepinephrine Bitartrate 4 mg (/ Dextrose) 254 mls @ 15.24 mls/hr IV TITR PRN ; Protocol; 4 MCG/MIN PRN Reason: BP MAINTENANCE (PER PROTOCOL) Stop: 05/20/16 11:23 Last Titration: 03/21/16 14:45 Dose: 0 mcg/min, 0 mls/hr Sodium Chloride (Nacl 0.9%) 1,000 mls @ 0 mls/hr IV .Q0M AMAURI PRN Reason: Wide Open Stop: 05/20/16 11:44 Piperacillin Sod/Tazobactam (Sod 4.5 gm/ Sodium Chloride) 100 mls @ 100 mls/hr IV Q8H ON LICENSE OF [facility] Stop: 05/20/16 17:59 Last Infusion: 03/23/16 10:00 Dose: Infused Parenteral Electrolytes 20 ml/Multivitamins/Minerals 10 ml/Chromium/Copper/ Manganese/Zinc 1 ml/ Amino Acids 1,031 mls @ 70 mls/hr IV .[id number] ON LICENSE OF [facility] Stop: 04/18/16 14:59 Last Admin: 03/22/16 15:00 Dose: 70 mls/hr Lactobacillus Rhamnosus (Culturelle) 1 each PO DAILY ON LICENSE OF [facility] Stop: 05/22/16 08:59 Last Admin: 03/23/16 09:17 Dose: 1 each Meclizine HCl (Antivert) 25 mg PO DAILY PRN PRN Reason: Nausea / Vomiting Stop: 05/08/16 21:37 Mirtazapine (Remeron) 7.5 mg PO HS ON LICENSE OF [facility] PRN Reason: Protocol Stop: 05/09/16 20:59 Last Admin: 03/22/16 20:52 Dose: 7.5 mg Miscellaneous (Vte Chemical Prophylaxis Screen/ Admission) 1 ea PRN PRN PRN Reason: PROTOCOL Stop: 05/10/16 17:12 Miscellaneous (Tpn Per Pharmacy) 1 ea MC DAILY ON LICENSE OF [facility] Stop: 05/20/16 14:39 Miscellaneous (Probiotic Screen) 1 ea PRN PRN PRN Reason: PROTOCOL Stop: 05/21/16 14:39 Morphine Sulfate (Morphine) 2 mg IV Q3H PRN PRN Reason: Pain (Moderate) Stop: 05/20/16 10:29 Morphine Sulfate (Morphine) 2 mg IVP Q4HR PRN PRN Reason: Pain (Moderate) Stop: 05/20/16 13:00 Ondansetron HCl (Zofran) 4 mg IV Q8H PRN PRN Reason: Nausea / Vomiting Stop: 05/08/16 21:37 Last Admin: 03/21/16 20:01 Dose: 4 mg Quetiapine Fumarate (Seroquel) 100 mg PO QPM AMAURI PRN Reason: Protocol Stop: 05/09/16 16:59 Last Admin: 03/22/16 16:53 Dose: Not Given Tamsulosin HCl (Flomax) 0.4 mg PO DAILY ON LICENSE OF [facility] Stop: 05/09/16 08:59 Last Admin: 03/23/16 09:17 Dose: 0.4 mg General: weak, alert HEENT: NC/AT, PERRLA Neck: Supple Lungs: CTAB Cardiovascular: RRR, Normal S1, Normal S2, without murmur Abdomen: soft non-tender, non-distended, positive bowel sound Extremities: clear Neurological: no change - Procedures Procedures: Procedures Procedure Code Date APPENDECTOMY ADD-ON 73663 03/10/16 BIOPSY OF BOWEL 28486 03/10/16 BYPASS DESCENDING COLON TO CUTANEOUS, OPEN APPROACH [id number] 03/10/16 COLOSTOMY 64038 03/10/16 EGD BIOPSY SINGLE/MULTIPLE 42967 03/10/16 EXCISION OF ILEUM, OPEN APPROACH [id number] 03/10/16 EXCISION OF LARGE INTESTINE, PERCUTANEOUS APPROACH, DIAGN [id number] 03/10/16 EXCISION OF STOMACH, ENDO, DIAGN [id number] 03/10/16 FREEING OF BOWEL ADHESION 49513 03/10/16 GROUP PSYCHOTHERAPY 02023 06/08/03 INDIVID PSYCHOTHERAP NEC 94.39 06/08/03 OTHER GROUP THERAPY 94.44 06/08/03 RELEASE ILEUM, OPEN APPROACH [id number] 03/10/16 REMOVAL OF SMALL INTESTINE 51788 03/10/16 RESECTION OF APPENDIX, OPEN APPROACH [id number] 03/10/16 Internal Medicine Assmt/Plan - Assessment Assessment: colon mass- adenoca s\p recection colostomy jonathan drain GI BLEED ANEMIA HYPOTENSION leukocytosis malnutrition - Plan Plan: continue ivabx ltac eval colostomy care cbc/bmp in am
[2016-03-24] MEDS: Albuterol Nebulizer 2.5mg/3mL HHN SCH ×7 (03:47→23:17)
[2016-03-24] MEDS: metroNIDAZOLE 500mg/NS 100mL 500 MG in Premix Fluid 1 BAG IV SCH ×3 (03:47→17:08)
[2016-03-24 07:10] LABS: HEMATOCRIT 34.7 % (39.0-49.0); HEMOGLOBIN 11.6 gm/dL (12.6-17.4); MEAN CELL VOLUME 80.8 fl (80-99); MEAN CORPUSCULAR HGB CONC 33.4 pg (28.0-36.0); MEAN PLATELET VOLUME 8.6 fl; PLATELET COUNT 367 Th/cmm (150-400); RED BLOOD COUNT 4.29 Mil/cmm (3.80-5.80); RED CELL DISTRIBUTION WIDTH 20.6 % (11.5-20.0)
[2016-03-24 07:24] LABS: WHITE BLOOD COUNT 29.4 Th/cmm (4.8-10.8)
[2016-03-24 07:33] LABS: ANION GAP 11.2 (7.0-16.0); BUN - UREA NITROGEN 13 mg/dL (7-25); CALCIUM SERUM 9.3 mg/dL (8.6-10.3); CARBON DIOXIDE 24.8 mEq/L (21.0-31.0); CHLORIDE 102 mEq/L (98-107); GLUCOSE 123 mg/dL (70-105); SODIUM SERUM 134 mEq/L (136-145)
[2016-03-24] MEDS: Enoxaparin 30 mg/0.3 mL 0.3mL Syr SUBQ SCH (09:03)
[2016-03-24 09:57] LABS: ANISOCYTOSIS 1+; BAND NEUTROPHILE 3 % (0-10); EOSINOPHIL 1 % (0-5); NEUTROPHILS 87 % (40-80); PLATELET ESTIMATE ADEQUATE (NORMAL); PLATELET MORPHOLOGY GIANT PLATELETS SEEN (NORMAL); POLYCHROMASIA 1+; TOTAL CELLS COUNTED 100
[2016-03-24] MEDS: Chlorhexidine Gluconate 0.12% 15mL Mouthwash MM SCH (10:53)
[2016-03-24] MEDS: Lactobacillus Rhamnosus 10 Billion CFU Capsule PO SCH (10:55)
[2016-03-24] MEDS: Metoclopramide 5 mg/mL 2mL Vial IVP SCH ×2 (15:01→21:52)
--- NOTE | 2016-03-24 17:37 | Internal Medicine Prog Note ---
Internal Medicine Subjective - Subjective Service Date: 03/24/16 (on ppn) Patient seen and examined:: with staff Patient is:: awake Per staff patient is:: no adverse event Internal Medicine Objective - Results Result Diagrams: 03/24/16 06:45 03/24/16 06:45 Recent Labs: Laboratory Last Values WBC 29.4 Th/cmm (4.8-10.8) H* 03/24/16 06:45 RBC 4.29 Mil/cmm (3.80-5.80) 03/24/16 06:45 Hgb 11.6 gm/dL (12.6-17.4) L 03/24/16 06:45 Hct 34.7 % (39.0-49.0) L 03/24/16 06:45 MCV 80.8 fl (80-99) 03/24/16 06:45 MCH 27.0 pg (27.0-31.0) 03/24/16 06:45 MCHC Differential 33.4 pg (28.0-36.0) 03/24/16 06:45 RDW 20.6 % (11.5-20.0) H 03/24/16 06:45 Plt Count 367 Th/cmm (150-400) 03/24/16 06:45 MPV 8.6 fl 03/24/16 06:45 Neutrophils % 66.8 % (40.0-80.0) 03/17/16 06:19 Band Neutrophils % 3 % (0-10) 03/24/16 06:45 Lymphocytes % 12.9 % (20.0-50.0) L 03/17/16 06:19 Monocytes % 8.2 % (2.0-10.0) 03/17/16 06:19 Eosinophils % 11.8 % (0.0-5.0) H 03/17/16 06:19 Basophils % 0.3 % (0.0-2.0) 03/17/16 06:19 Neutrophils (Manual) 87 % (40-80) H 03/24/16 06:45 Lymphocytes 2 % (20-50) L 03/24/16 06:45 Monocytes 7 % (2-10) 03/24/16 06:45 Eosinophils 1 % (0-5) 03/24/16 06:45 Basophils 1 % (0-3) 03/12/16 08:00 Platelet Estimate ADEQUATE (NORMAL) 03/24/16 06:45 Platelet Morphology GIANT PLATELETS SEEN (NORMAL) 03/24/16 06:45 Polychromasia 1+ 03/24/16 06:45 Anisocytosis 1+ 03/24/16 06:45 Microcytosis 1+ 03/21/16 06:19 RBC Morph Micro Appear ABNORMAL (NORMAL) 03/24/16 06:45 PT 10.1 SECONDS (9.5-11.5) 03/20/16 06:55 INR 1.02 (0.5-1.4) 03/20/16 06:55 PTT (Actin FS) 27.6 SECONDS (26.0-38.0) 03/20/16 06:55 Specimen Source Arterial 03/21/16 16:45 Sample Site Right Radial 03/21/16 16:45 pH 7.37 (7.35-7.45) 03/21/16 16:45 pCO2 40.0 mmHg (35.0-45.0) 03/21/16 16:45 pO2 85.0 mmHg (80.0-100.0) 03/21/16 16:45 HCO3 23.1 mmol/L (20.0-26.0) 03/21/16 16:45 Base Excess -2.0 mmol/L (-3.0-3.0) 03/21/16 16:45 O2 Saturation 96.0 % (92.0-100.0) 03/21/16 16:45 Galo Test YES 03/21/16 16:45 Vent Rate NA 03/21/16 16:45 Inspired O2 40 03/21/16 16:45 Tidal Volume NA 03/21/16 16:45 PEEP NA 03/21/16 16:45 Pressure (ins/psv/peep) NA 03/21/16 16:45 Critical Value E.HERNANDEZ 03/21/16 16:45 Sodium 134 mEq/L (136-145) L 03/24/16 06:45 Potassium 4.0 mEq/L (3.5-5.1) 03/24/16 06:45 Chloride 102 mEq/L (98-107) 03/24/16 06:45 Carbon Dioxide 24.8 mEq/L (21.0-31.0) 03/24/16 06:45 Anion Gap 11.2 (7.0-16.0) 03/24/16 06:45 BUN 13 mg/dL (7-25) 03/24/16 06:45 Creatinine 1.0 mg/dL (0.7-1.3) 03/24/16 06:45 Est GFR ( Amer) > 60.0 ml/min (>90) 03/24/16 06:45 Est GFR (Non-Af Amer) > 60.0 ml/min 03/24/16 06:45 BUN/Creatinine Ratio 13.0 03/24/16 06:45 Glucose 123 mg/dL (70-105) H 03/24/16 06:45 Calcium 9.3 mg/dL (8.6-10.3) 03/24/16 06:45 Phosphorus 2.5 mg/dL (2.5-5.0) 03/22/16 04:50 Magnesium 1.7 mg/dL (1.9-2.7) L 03/22/16 04:50 Ferritin 136 ng/mL (30-400) 03/19/16 07:40 Total Bilirubin 0.5 mg/dL (0.3-1.0) 03/22/16 04:50 AST 20 U/L (13-39) 03/22/16 04:50 ALT 10 U/L (7-52) 03/22/16 04:50 Alkaline Phosphatase 79 U/L (34-104) 03/22/16 04:50 Ammonia 41 umol/L (16-53) 03/10/16 04:30 B-Natriuretic Peptide 111.0 pg/mL (5.0-100.0) H 03/22/16 04:50 Total Protein 6.8 gm/dL (6.0-8.3) 03/22/16 04:50 Albumin 3.4 gm/dL (4.2-5.5) L 03/22/16 04:50 Globulin 3.4 gm/dL 03/22/16 04:50 Albumin/Globulin Ratio 1.0 (1.0-1.8) 03/22/16 04:50 Carcinoembryonic Ag 2.7 ng/mL (0.0-4.7) 03/18/16 06:19 Vitamin B12 389 pg/mL (211-946) 03/10/16 04:30 Folic Acid 13.3 ng/mL (>3.0) 03/10/16 04:30 TSH 2.57 uIU/ml (0.34-5.60) 03/10/16 04:30 Urine Source CATH 03/13/16 16:00 Urine Color YELLOW 03/13/16 16:00 Urine Clarity CLEAR (CLEAR) 03/13/16 16:00 Urine pH 5.5 03/13/16 16:00 Ur Specific [place] 1.010 (1.005-1.030) 03/13/16 16:00 Urine Protein NEGATIVE mg/dL (NEGATIVE) 03/13/16 16:00 Urine Glucose (UA) NEGATIVE mg/dL (NEGATIVE) 03/13/16 16:00 Urine Ketones NEGATIVE mg/dL (NEGATIVE) 03/13/16 16:00 Urine Blood LARGE (NEGATIVE) H 03/13/16 16:00 Urine Nitrate NEGATIVE (NEGATIVE) 03/13/16 16:00 Urine Bilirubin NEGATIVE (NEGATIVE) 03/13/16 16:00 Urine Urobilinogen 1.0 E.U./dL (0.2 - 1.0) 03/13/16 16:00 Ur Leukocyte Esterase TRACE (NEGATIVE) H 03/13/16 16:00 Urine RBC 10-25 /hpf (0-5) H 03/13/16 16:00 Urine WBC 6-10 /hpf (0-5) H 03/13/16 16:00 Ur Epithelial Cells FEW /lpf (FEW) 03/13/16 16:00 Urine Bacteria OCCASIONAL /hpf (NONE SEEN) 03/13/16 16:00 Blood Type B POSITIVE 03/19/16 16:10 Antibody Screen NEGATIVE 03/19/16 16:10 Crossmatch See Detail 03/19/16 16:10 - Physical Exam Vitals and I&O: Vital Signs Temp 98.2 F 03/24/16 16:00 Pulse 100 03/24/16 16:00 Resp 17 03/24/16 16:00 BP 136/75 03/24/16 16:00 Pulse Ox 98 03/24/16 16:00 Intake & Output 03/23/16 03/24/16 03/24/16 18:59 06:59 18:59 Intake Total 400 1280 200 Output Total 2060 Balance 400 -780 200 Intake: Intake, IV Amount 400 400 200 Pantoprazole 80 mg In 100 Sodium Chloride 0.9% 100 ml @ 10 mls/hr IV Q10H [facility] Rx#:[id number] Piperacillin Sodium/ 100 200 100 Tazobact 4.5 gm In Sodium Chloride 0.9% 100 ml @ 100 mls/hr IV Q8H [facility] Rx# :[id number] metroNIDAZOLE 500mg/NS 200 200 100 100mL 500 mg In Premix Fluid 1 bag @ 100 mls/hr IV Q8H [facility] Rx#:[id number] Oral 400 TPN/PPN 480 Output: Drainage 360 Left Lower Abdomen 360 Urine 1700 Other: # Voids 3 Active Medications: Current Medications Acetaminophen (Tylenol) 650 mg PO Q6HR PRN PRN Reason: PAIN OR TEMP >100 Stop: 05/08/16 21:33 Last Admin: 03/12/16 09:37 Dose: 650 mg Acetaminophen/Codeine Phosphate (Tylenol W/Codeine #3) 1 tab PO Q4HR PRN PRN Reason: PAIN Stop: 05/08/16 21:33 Al Hydrox/Mg Hydrox/Simethicone (Maalox) 30 ml PO Q4HR PRN PRN Reason: Indigestion Stop: 05/08/16 21:33 Albuterol Sulfate (Albuterol 2.5mg/3ml Neb Ud) 2.5 mg IH Q2HR PRN PRN Reason: Shortness of Breath or Wheeze Stop: 05/08/16 21:37 Albuterol Sulfate (Albuterol 2.5mg/3ml Neb Ud) 2.5 mg HHN Q4HRT [facility] Stop: 05/20/16 18:59 Last Admin: 03/24/16 15:42 Dose: Not Given Chlorhexidine Gluconate (Peridex) 15 ml MM 0800,1999 [facility] Stop: 05/20/16 19:59 Last Admin: 03/24/16 10:53 Dose: Not Given Donepezil HCl (Aricept) 10 mg PO HS [facility] Stop: 05/09/16 20:59 Last Admin: 03/23/16 20:11 Dose: 10 mg Enoxaparin Sodium (Lovenox) 30 mg SUBQ DAILY [facility] Stop: 05/22/16 08:59 Last Admin: 03/24/16 09:03 Dose: 30 mg Pantoprazole Sodium 80 mg/ (Sodium Chloride) 100 mls @ 10 mls/hr IV Q10H [facility] Stop: 05/08/16 21:44 Last Admin: 03/23/16 21:04 Dose: 10 mls/hr Dextrose/Sodium Chloride (D5-0.45ns) 1,000 mls @ 40 mls/hr IV .Q24H [facility] Stop: 05/18/16 12:59 Last Admin: 03/22/16 13:00 Dose: 40 mls/hr Metronidazole 500 mg/ (Miscellaneous) 100 mls @ 100 mls/hr IV Q8H [facility] Stop: 05/20/16 09:14 Last Admin: 03/24/16 17:08 Dose: 100 mls/hr Norepinephrine Bitartrate 4 mg (/ Dextrose) 254 mls @ 15.24 mls/hr IV TITR PRN ; Protocol; 4 MCG/MIN PRN Reason: BP MAINTENANCE (PER PROTOCOL) Stop: 05/20/16 11:23 Last Titration: 03/21/16 14:45 Dose: 0 mcg/min, 0 mls/hr Sodium Chloride (Nacl 0.9%) 1,000 mls @ 0 mls/hr IV .Q0M AMAURI PRN Reason: Wide Open Stop: 05/20/16 11:44 Piperacillin Sod/Tazobactam (Sod 4.5 gm/ Sodium Chloride) 100 mls @ 100 mls/hr IV Q8H [facility] Stop: 05/20/16 17:59 Last Infusion: 03/24/16 12:06 Dose: Infused Parenteral Electrolytes 20 ml/Multivitamins/Minerals 10 ml/Chromium/Copper/ Manganese/Zinc 1 ml/ Amino Acids 1,031 mls @ 70 mls/hr IV .[id number] [facility] Stop: 04/18/16 14:59 Last Admin: 03/22/16 15:00 Dose: 70 mls/hr Lactobacillus Rhamnosus (Culturelle) 1 each PO DAILY [facility] Stop: 05/22/16 08:59 Last Admin: 03/24/16 10:55 Dose: 1 each Meclizine HCl (Antivert) 25 mg PO DAILY PRN PRN Reason: Nausea / Vomiting Stop: 05/08/16 21:37 Metoclopramide HCl (Reglan) 10 mg IVP Q8HR [facility] Stop: 05/23/16 12:59 Last Admin: 03/24/16 15:01 Dose: 10 mg Mirtazapine (Remeron) 7.5 mg PO HS AMAURI PRN Reason: Protocol Stop: 05/09/16 20:59 Last Admin: 03/23/16 20:11 Dose: 7.5 mg Miscellaneous (Vte Chemical Prophylaxis Screen/ Admission) 1 ea PRN PRN PRN Reason: PROTOCOL Stop: 05/10/16 17:12 Miscellaneous (Tpn Per Pharmacy) 1 ea MC DAILY [facility] Stop: 05/20/16 14:39 Miscellaneous (Probiotic Screen) 1 ea PRN PRN PRN Reason: PROTOCOL Stop: 05/21/16 14:39 Morphine Sulfate (Morphine) 2 mg IV Q3H PRN PRN Reason: Pain (Moderate) Stop: 05/20/16 10:29 Morphine Sulfate (Morphine) 2 mg IVP Q4HR PRN PRN Reason: Pain (Moderate) Stop: 05/20/16 13:00 Ondansetron HCl (Zofran) 4 mg IV Q8H PRN PRN Reason: Nausea / Vomiting Stop: 05/08/16 21:37 Last Admin: 03/21/16 20:01 Dose: 4 mg Quetiapine Fumarate (Seroquel) 100 mg PO QPM [facility]MAURI PRN Reason: Protocol Stop: 05/09/16 16:59 Last Admin: 03/24/16 17:08 Dose: 100 mg Tamsulosin HCl (Flomax) 0.4 mg PO DAILY [facility] Stop: 05/09/16 08:59 Last Admin: 03/24/16 09:03 Dose: 0.4 mg General: alert HEENT: NC/AT Neck: Supple Lungs: CTAB Cardiovascular: RRR, Normal S1, Normal S2, without murmur Abdomen: soft non-tender, non-distended Extremities: clear - Procedures Procedures: Procedures Procedure Code Date APPENDECTOMY ADD-ON 58026 03/10/16 BIOPSY OF BOWEL 60916 03/10/16 BYPASS DESCENDING COLON TO CUTANEOUS, OPEN APPROACH [id number] 03/10/16 COLOSTOMY 55876 03/10/16 EGD BIOPSY SINGLE/MULTIPLE 03307 03/10/16 EXCISION OF ILEUM, OPEN APPROACH [id number] 03/10/16 EXCISION OF LARGE INTESTINE, PERCUTANEOUS APPROACH, DIAGN [id number] 03/10/16 EXCISION OF STOMACH, ENDO, DIAGN [id number] 03/10/16 FREEING OF BOWEL ADHESION 03066 03/10/16 GROUP PSYCHOTHERAPY 13514 06/08/03 INDIVID PSYCHOTHERAP NEC 94.39 06/08/03 OTHER GROUP THERAPY 94.44 06/08/03 RELEASE ILEUM, OPEN APPROACH [id number] 03/10/16 REMOVAL OF SMALL INTESTINE 15002 03/10/16 RESECTION OF APPENDIX, OPEN APPROACH [id number] 03/10/16 Internal Medicine Assmt/Plan - Assessment Assessment: colon mass- adenoca s\p recection colostomy GI BLEED ANEMIA HYPOTENSION-resolved leukocytosis malnutrition - Plan Plan: continue ivabx picc line to be placed ltac eval colostomy care cbc/bmp in am
[2016-03-24 20:46] LABS: INR 1.14 (0.5-1.4); PROTHROMBIN TIME (TEST) 11.4 SECONDS (9.5-11.5)
[2016-03-24] MEDS: Pantoprazole 80 MG in Sodium Chloride 0.9% 100 ML IV SCH (21:51)
--- NOTE | 2016-03-24 23:49 | Infectious Disease Prog Note ---
Infectious Disease Subjective - Review of Systems Service Date: 03/24/16 Subjective: Doing well, developing low grade fevers. Infectious Disease Objective - Results Result Diagrams: 03/24/16 06:45 03/24/16 06:45 Recent Labs: Laboratory Last Values WBC 29.4 Th/cmm (4.8-10.8) H* 03/24/16 06:45 RBC 4.29 Mil/cmm (3.80-5.80) 03/24/16 06:45 Hgb 11.6 gm/dL (12.6-17.4) L 03/24/16 06:45 Hct 34.7 % (39.0-49.0) L 03/24/16 06:45 MCV 80.8 fl (80-99) 03/24/16 06:45 MCH 27.0 pg (27.0-31.0) 03/24/16 06:45 MCHC Differential 33.4 pg (28.0-36.0) 03/24/16 06:45 RDW 20.6 % (11.5-20.0) H 03/24/16 06:45 Plt Count 367 Th/cmm (150-400) 03/24/16 06:45 MPV 8.6 fl 03/24/16 06:45 Neutrophils % 66.8 % (40.0-80.0) 03/17/16 06:19 Band Neutrophils % 3 % (0-10) 03/24/16 06:45 Lymphocytes % 12.9 % (20.0-50.0) L 03/17/16 06:19 Monocytes % 8.2 % (2.0-10.0) 03/17/16 06:19 Eosinophils % 11.8 % (0.0-5.0) H 03/17/16 06:19 Basophils % 0.3 % (0.0-2.0) 03/17/16 06:19 Neutrophils (Manual) 87 % (40-80) H 03/24/16 06:45 Lymphocytes 2 % (20-50) L 03/24/16 06:45 Monocytes 7 % (2-10) 03/24/16 06:45 Eosinophils 1 % (0-5) 03/24/16 06:45 Basophils 1 % (0-3) 03/12/16 08:00 Platelet Estimate ADEQUATE (NORMAL) 03/24/16 06:45 Platelet Morphology GIANT PLATELETS SEEN (NORMAL) 03/24/16 06:45 Polychromasia 1+ 03/24/16 06:45 Anisocytosis 1+ 03/24/16 06:45 Microcytosis 1+ 03/21/16 06:19 RBC Morph Micro Appear ABNORMAL (NORMAL) 03/24/16 06:45 PT 11.4 SECONDS (9.5-11.5) 03/24/16 20:04 INR 1.14 (0.5-1.4) 03/24/16 20:04 PTT (Actin FS) 30.2 SECONDS (26.0-38.0) 03/24/16 20:04 Specimen Source Arterial 03/21/16 16:45 Sample Site Right Radial 03/21/16 16:45 pH 7.37 (7.35-7.45) 03/21/16 16:45 pCO2 40.0 mmHg (35.0-45.0) 03/21/16 16:45 pO2 85.0 mmHg (80.0-100.0) 03/21/16 16:45 HCO3 23.1 mmol/L (20.0-26.0) 03/21/16 16:45 Base Excess -2.0 mmol/L (-3.0-3.0) 03/21/16 16:45 O2 Saturation 96.0 % (92.0-100.0) 03/21/16 16:45 Galo Test YES 03/21/16 16:45 Vent Rate NA 03/21/16 16:45 Inspired O2 40 03/21/16 16:45 Tidal Volume NA 03/21/16 16:45 PEEP NA 03/21/16 16:45 Pressure (ins/psv/peep) NA 03/21/16 16:45 Critical Value E.HERNANDEZ 03/21/16 16:45 Sodium 134 mEq/L (136-145) L 03/24/16 06:45 Potassium 4.0 mEq/L (3.5-5.1) 03/24/16 06:45 Chloride 102 mEq/L (98-107) 03/24/16 06:45 Carbon Dioxide 24.8 mEq/L (21.0-31.0) 03/24/16 06:45 Anion Gap 11.2 (7.0-16.0) 03/24/16 06:45 BUN 13 mg/dL (7-25) 03/24/16 06:45 Creatinine 1.0 mg/dL (0.7-1.3) 03/24/16 06:45 Est GFR ( Amer) > 60.0 ml/min (>90) 03/24/16 06:45 Est GFR (Non-Af Amer) > 60.0 ml/min 03/24/16 06:45 BUN/Creatinine Ratio 13.0 03/24/16 06:45 Glucose 123 mg/dL (70-105) H 03/24/16 06:45 Calcium 9.3 mg/dL (8.6-10.3) 03/24/16 06:45 Phosphorus 2.5 mg/dL (2.5-5.0) 03/22/16 04:50 Magnesium 1.7 mg/dL (1.9-2.7) L 03/22/16 04:50 Ferritin 136 ng/mL (30-400) 03/19/16 07:40 Total Bilirubin 0.5 mg/dL (0.3-1.0) 03/22/16 04:50 AST 20 U/L (13-39) 03/22/16 04:50 ALT 10 U/L (7-52) 03/22/16 04:50 Alkaline Phosphatase 79 U/L (34-104) 03/22/16 04:50 Ammonia 41 umol/L (16-53) 03/10/16 04:30 B-Natriuretic Peptide 111.0 pg/mL (5.0-100.0) H 03/22/16 04:50 Total Protein 6.8 gm/dL (6.0-8.3) 03/22/16 04:50 Albumin 3.4 gm/dL (4.2-5.5) L 03/22/16 04:50 Globulin 3.4 gm/dL 03/22/16 04:50 Albumin/Globulin Ratio 1.0 (1.0-1.8) 03/22/16 04:50 Carcinoembryonic Ag 2.7 ng/mL (0.0-4.7) 03/18/16 06:19 Vitamin B12 389 pg/mL (211-946) 03/10/16 04:30 Folic Acid 13.3 ng/mL (>3.0) 03/10/16 04:30 TSH 2.57 uIU/ml (0.34-5.60) 03/10/16 04:30 Urine Source CATH 03/13/16 16:00 Urine Color YELLOW 03/13/16 16:00 Urine Clarity CLEAR (CLEAR) 03/13/16 16:00 Urine pH 5.5 03/13/16 16:00 Ur Specific [place] 1.010 (1.005-1.030) 03/13/16 16:00 Urine Protein NEGATIVE mg/dL (NEGATIVE) 03/13/16 16:00 Urine Glucose (UA) NEGATIVE mg/dL (NEGATIVE) 03/13/16 16:00 Urine Ketones NEGATIVE mg/dL (NEGATIVE) 03/13/16 16:00 Urine Blood LARGE (NEGATIVE) H 03/13/16 16:00 Urine Nitrate NEGATIVE (NEGATIVE) 03/13/16 16:00 Urine Bilirubin NEGATIVE (NEGATIVE) 03/13/16 16:00 Urine Urobilinogen 1.0 E.U./dL (0.2 - 1.0) 03/13/16 16:00 Ur Leukocyte Esterase TRACE (NEGATIVE) H 03/13/16 16:00 Urine RBC 10-25 /hpf (0-5) H 03/13/16 16:00 Urine WBC 6-10 /hpf (0-5) H 03/13/16 16:00 Ur Epithelial Cells FEW /lpf (FEW) 03/13/16 16:00 Urine Bacteria OCCASIONAL /hpf (NONE SEEN) 03/13/16 16:00 Blood Type B POSITIVE 03/19/16 16:10 Antibody Screen NEGATIVE 03/19/16 16:10 Crossmatch See Detail 03/19/16 16:10 - Physical Exam Vitals and I&O: Vital Signs Temp 98.2 F 03/24/16 16:00 Pulse 80 03/24/16 23:16 Resp 18 03/24/16 23:16 BP 136/75 03/24/16 16:00 Pulse Ox 96 03/24/16 23:16 Intake & Output 03/24/16 03/24/16 03/25/16 06:59 18:59 06:59 Intake Total 1280 1540 Output Total 2060 185 Balance -780 1355 Intake: Intake, IV Amount 400 400 Pantoprazole 80 mg In 100 Sodium Chloride 0.9% 100 ml @ 10 mls/hr IV Q10H [facility] Rx#:[id number] Piperacillin Sodium/ 200 200 Tazobact 4.5 gm In Sodium Chloride 0.9% 100 ml @ 100 mls/hr IV Q8H [facility] Rx# :[id number] metroNIDAZOLE 500mg/NS 200 100 100mL 500 mg In Premix Fluid 1 bag @ 100 mls/hr IV Q8H [facility] Rx#:[id number] Oral 400 300 TPN/PPN 480 840 Output: Drainage 360 160 Left Lower Abdomen 360 160 Urine 1700 Other 25 Other: # Voids 3 2 Stool Characteristics Liquid Active Medications: Current Medications Acetaminophen (Tylenol) 650 mg PO Q6HR PRN PRN Reason: PAIN OR TEMP >100 Stop: 05/08/16 21:33 Last Admin: 03/24/16 21:52 Dose: 650 mg Acetaminophen/Codeine Phosphate (Tylenol W/Codeine #3) 1 tab PO Q4HR PRN PRN Reason: PAIN Stop: 05/08/16 21:33 Al Hydrox/Mg Hydrox/Simethicone (Maalox) 30 ml PO Q4HR PRN PRN Reason: Indigestion Stop: 05/08/16 21:33 Albuterol Sulfate (Albuterol 2.5mg/3ml Neb Ud) 2.5 mg IH Q2HR PRN PRN Reason: Shortness of Breath or Wheeze Stop: 05/08/16 21:37 Albuterol Sulfate (Albuterol 2.5mg/3ml Neb Ud) 2.5 mg HHN Q4HRT [facility] Stop: 05/20/16 18:59 Last Admin: 03/24/16 23:17 Dose: Not Given Chlorhexidine Gluconate (Peridex) 15 ml MM 0800,1999 [facility] Stop: 05/20/16 19:59 Last Admin: 03/24/16 10:53 Dose: Not Given Donepezil HCl (Aricept) 10 mg PO HS [facility] Stop: 05/09/16 20:59 Last Admin: 03/24/16 21:52 Dose: 10 mg Enoxaparin Sodium (Lovenox) 30 mg SUBQ DAILY [facility] Stop: 05/22/16 08:59 Last Admin: 03/24/16 09:03 Dose: 30 mg Pantoprazole Sodium 80 mg/ (Sodium Chloride) 100 mls @ 10 mls/hr IV Q10H [facility] Stop: 05/08/16 21:44 Last Admin: 03/24/16 21:51 Dose: 10 mls/hr Dextrose/Sodium Chloride (D5-0.45ns) 1,000 mls @ 40 mls/hr IV .Q24H [facility] Stop: 05/18/16 12:59 Last Admin: 03/22/16 13:00 Dose: 40 mls/hr Metronidazole 500 mg/ (Miscellaneous) 100 mls @ 100 mls/hr IV Q8H [facility] Stop: 05/20/16 09:14 Last Admin: 03/24/16 17:08 Dose: 100 mls/hr Norepinephrine Bitartrate 4 mg (/ Dextrose) 254 mls @ 15.24 mls/hr IV TITR PRN ; Protocol; 4 MCG/MIN PRN Reason: BP MAINTENANCE (PER PROTOCOL) Stop: 05/20/16 11:23 Last Titration: 03/21/16 14:45 Dose: 0 mcg/min, 0 mls/hr Sodium Chloride (Nacl 0.9%) 1,000 mls @ 0 mls/hr IV .Q0M AMAURI PRN Reason: Wide Open Stop: 05/20/16 11:44 Piperacillin Sod/Tazobactam (Sod 4.5 gm/ Sodium Chloride) 100 mls @ 100 mls/hr IV Q8H [facility] Stop: 05/20/16 17:59 Last Infusion: 03/24/16 18:17 Dose: Infused Parenteral Electrolytes 20 ml/Multivitamins/Minerals 10 ml/Chromium/Copper/ Manganese/Zinc 1 ml/ Amino Acids 1,031 mls @ 70 mls/hr IV .[id number] [facility] Stop: 04/18/16 14:59 Last Admin: 03/22/16 15:00 Dose: 70 mls/hr Lactobacillus Rhamnosus (Culturelle) 1 each PO DAILY [facility] Stop: 05/22/16 08:59 Last Admin: 03/24/16 10:55 Dose: 1 each Meclizine HCl (Antivert) 25 mg PO DAILY PRN PRN Reason: Nausea / Vomiting Stop: 05/08/16 21:37 Metoclopramide HCl (Reglan) 10 mg IVP Q8HR [facility] Stop: 05/23/16 12:59 Last Admin: 03/24/16 21:52 Dose: 10 mg Mirtazapine (Remeron) 7.5 mg PO HS AMAURI PRN Reason: Protocol Stop: 05/09/16 20:59 Last Admin: 03/24/16 21:52 Dose: 7.5 mg Miscellaneous (Vte Chemical Prophylaxis Screen/ Admission) 1 ea PRN PRN PRN Reason: PROTOCOL Stop: 05/10/16 17:12 Miscellaneous (Tpn Per Pharmacy) 1 ea DAILY [facility] Stop: 05/20/16 14:39 Miscellaneous (Probiotic Screen) 1 ea PRN PRN PRN Reason: PROTOCOL Stop: 05/21/16 14:39 Morphine Sulfate (Morphine) 2 mg IV Q3H PRN PRN Reason: Pain (Moderate) Stop: 05/20/16 10:29 Morphine Sulfate (Morphine) 2 mg IVP Q4HR PRN PRN Reason: Pain (Moderate) Stop: 05/20/16 13:00 Ondansetron HCl (Zofran) 4 mg IV Q8H PRN PRN Reason: Nausea / Vomiting Stop: 05/08/16 21:37 Last Admin: 03/21/16 20:01 Dose: 4 mg Quetiapine Fumarate (Seroquel) 100 mg PO QPM AMAURI PRN Reason: Protocol Stop: 05/09/16 16:59 Last Admin: 03/24/16 17:08 Dose: 100 mg Tamsulosin HCl (Flomax) 0.4 mg PO DAILY [facility] Stop: 05/09/16 08:59 Last Admin: 03/24/16 09:03 Dose: 0.4 mg General: no acute distress HEENT: atraumatic, normocephalic, PERRLA, EOMI Neck: supple Cardiovascular: S1S2, regular Lungs: clear to auscultation bilaterally, clear to percussion Abdomen: soft, tender, other (surgical incision wound - ok. colostomy.), no distended Extremities: no cyanosis, no clubbing, no edema - Procedures Procedures: Procedures Procedure Code Date APPENDECTOMY ADD-ON 23995 03/10/16 BIOPSY OF BOWEL 31912 03/10/16 BYPASS DESCENDING COLON TO CUTANEOUS, OPEN APPROACH [id number] 03/10/16 COLOSTOMY 22402 03/10/16 EGD BIOPSY SINGLE/MULTIPLE 85421 03/10/16 EXCISION OF ILEUM, OPEN APPROACH [id number] 03/10/16 EXCISION OF LARGE INTESTINE, PERCUTANEOUS APPROACH, DIAGN [id number] 03/10/16 EXCISION OF STOMACH, ENDO, DIAGN [id number] 03/10/16 FREEING OF BOWEL ADHESION 41470 03/10/16 GROUP PSYCHOTHERAPY 76982 06/08/03 INDIVID PSYCHOTHERAP NEC 94.39 06/08/03 OTHER GROUP THERAPY 94.44 06/08/03 RELEASE ILEUM, OPEN APPROACH [id number] 03/10/16 REMOVAL OF SMALL INTESTINE 20495 03/10/16 RESECTION OF APPENDIX, OPEN APPROACH [id number] 03/10/16 Infectious Disease Assmt/Plan - Problem List Patient Problems: All Active Problems BLOOD CLOT IN STOOL (Acute) - Assessment Assessment: Impression: 1. hypotension improved. fever and leukocytosis? postoperative, versus peritonitis.? sepsis. 2, Intraabdominal mass? colon CA. associated colitis. 3. GI Bleed 2/ #2. 4. Dementia. 5. History of hypertension. 6. s/p colectomy and colostomy. RECOMMENDATIONS: Change zosyn to levaquin and flagyl. Check lactic acid.
[2016-03-25] MEDS: metroNIDAZOLE 500mg/NS 100mL 500 MG in Premix Fluid 1 BAG IV SCH ×3 (01:34→17:05)
[2016-03-25] MEDS: Albuterol Nebulizer 2.5mg/3mL HHN SCH ×6 (02:50→22:27)
[2016-03-25] MEDS ORDERED: Levofloxacin 500mg/100mL 500 MG/100 ML BAG IV ONE (03:40)
[2016-03-25] MEDS: Levofloxacin 500mg/100mL 500 MG/100 ML BAG IV SCH (03:42)
[2016-03-25 06:02] LABS: HEMATOCRIT 34.4 % (39.0-49.0); HEMOGLOBIN 11.4 gm/dL (12.6-17.4); MEAN CELL VOLUME 81.1 fl (80-99); MEAN CORPUSCULAR HEMOGLOBIN 26.8 pg (27.0-31.0); MEAN CORPUSCULAR HGB CONC 33.1 pg (28.0-36.0); MEAN PLATELET VOLUME 8.6 fl; PLATELET COUNT 424 Th/cmm (150-400); RED BLOOD COUNT 4.24 Mil/cmm (3.80-5.80); RED CELL DISTRIBUTION WIDTH 20.8 % (11.5-20.0)
[2016-03-25 06:10] LABS: WHITE BLOOD COUNT 21.2 Th/cmm (4.8-10.8)
[2016-03-25 06:17] LABS: ANION GAP 8.1 (7.0-16.0); BUN - UREA NITROGEN 15 mg/dL (7-25); BUN/CREATININE RATIO 16.7; CALCIUM SERUM 9.4 mg/dL (8.6-10.3); CARBON DIOXIDE 25.8 mEq/L (21.0-31.0); CHLORIDE 105 mEq/L (98-107); CREATININE - SERUM 0.9 mg/dL (0.7-1.3); GLUCOSE 108 mg/dL (70-105); POTASSIUM SERUM 3.9 mEq/L (3.5-5.1); SODIUM SERUM 135 mEq/L (136-145)
[2016-03-25] MEDS: Metoclopramide 5 mg/mL 2mL Vial IVP SCH ×3 (06:24→21:05)
[2016-03-25] MEDS: Chlorhexidine Gluconate 0.12% 15mL Mouthwash MM SCH ×2 (09:00→21:06)
[2016-03-25] MEDS: Lactobacillus Rhamnosus 10 Billion CFU Capsule PO SCH (09:16)
[2016-03-25] MEDS: Enoxaparin 30 mg/0.3 mL 0.3mL Syr SUBQ SCH (09:17)
[2016-03-25] MEDS: Pantoprazole 80 MG in Sodium Chloride 0.9% 100 ML IV SCH ×2 (09:24→21:06)
[2016-03-25 10:12] LABS: NEUTROPHILS 89 % (40-80); PLATELET ESTIMATE ADEQUATE (NORMAL); TOTAL CELLS COUNTED 100
[2016-03-25 10:13] LABS: ANISOCYTOSIS 1+; PLATELET MORPHOLOGY GIANT PLATELETS SEEN (NORMAL)
--- NOTE | 2016-03-25 11:39 | Internal Medicine Prog Note ---
Internal Medicine Subjective - Subjective Service Date: 03/25/16 (per nursing staff patient has a good appetite today) Patient seen and examined:: with staff Patient is:: awake Per staff patient is:: no adverse event Internal Medicine Objective - Results Result Diagrams: 03/25/16 05:15 03/25/16 05:15 Recent Labs: Laboratory Last Values WBC 21.2 Th/cmm (4.8-10.8) H* D 03/25/16 05:15 RBC 4.24 Mil/cmm (3.80-5.80) 03/25/16 05:15 Hgb 11.4 gm/dL (12.6-17.4) L 03/25/16 05:15 Hct 34.4 % (39.0-49.0) L 03/25/16 05:15 MCV 81.1 fl (80-99) 03/25/16 05:15 MCH 26.8 pg (27.0-31.0) L 03/25/16 05:15 MCHC Differential 33.1 pg (28.0-36.0) 03/25/16 05:15 RDW 20.8 % (11.5-20.0) H 03/25/16 05:15 Plt Count 424 Th/cmm (150-400) H 03/25/16 05:15 MPV 8.6 fl 03/25/16 05:15 Neutrophils % 66.8 % (40.0-80.0) 03/17/16 06:19 Band Neutrophils % 3 % (0-10) 03/24/16 06:45 Lymphocytes % 12.9 % (20.0-50.0) L 03/17/16 06:19 Monocytes % 8.2 % (2.0-10.0) 03/17/16 06:19 Eosinophils % 11.8 % (0.0-5.0) H 03/17/16 06:19 Basophils % 0.3 % (0.0-2.0) 03/17/16 06:19 Neutrophils (Manual) 89 % (40-80) H 03/25/16 05:15 Lymphocytes 5 % (20-50) L 03/25/16 05:15 Monocytes 6 % (2-10) 03/25/16 05:15 Eosinophils 1 % (0-5) 03/24/16 06:45 Basophils 1 % (0-3) 03/12/16 08:00 Platelet Estimate ADEQUATE (NORMAL) 03/25/16 05:15 Platelet Morphology GIANT PLATELETS SEEN (NORMAL) 03/25/16 05:15 Polychromasia 1+ 03/24/16 06:45 Anisocytosis 1+ 03/25/16 05:15 Microcytosis 1+ 03/21/16 06:19 RBC Morph Micro Appear ABNORMAL (NORMAL) 03/25/16 05:15 PT 11.4 SECONDS (9.5-11.5) 03/24/16 20:04 INR 1.14 (0.5-1.4) 03/24/16 20:04 PTT (Actin FS) 30.2 SECONDS (26.0-38.0) 03/24/16 20:04 Specimen Source Arterial 03/21/16 16:45 Sample Site Right Radial 03/21/16 16:45 pH 7.37 (7.35-7.45) 03/21/16 16:45 pCO2 40.0 mmHg (35.0-45.0) 03/21/16 16:45 pO2 85.0 mmHg (80.0-100.0) 03/21/16 16:45 HCO3 23.1 mmol/L (20.0-26.0) 03/21/16 16:45 Base Excess -2.0 mmol/L (-3.0-3.0) 03/21/16 16:45 O2 Saturation 96.0 % (92.0-100.0) 03/21/16 16:45 Galo Test YES 03/21/16 16:45 Vent Rate NA 03/21/16 16:45 Inspired O2 40 03/21/16 16:45 Tidal Volume NA 03/21/16 16:45 PEEP NA 03/21/16 16:45 Pressure (ins/psv/peep) NA 03/21/16 16:45 Critical Value E.HERNANDEZ 03/21/16 16:45 Sodium 135 mEq/L (136-145) L 03/25/16 05:15 Potassium 3.9 mEq/L (3.5-5.1) 03/25/16 05:15 Chloride 105 mEq/L (98-107) 03/25/16 05:15 Carbon Dioxide 25.8 mEq/L (21.0-31.0) 03/25/16 05:15 Anion Gap 8.1 (7.0-16.0) 03/25/16 05:15 BUN 15 mg/dL (7-25) 03/25/16 05:15 Creatinine 0.9 mg/dL (0.7-1.3) 03/25/16 05:15 Est GFR ( Amer) > 60.0 ml/min (>90) 03/25/16 05:15 Est GFR (Non-Af Amer) > 60.0 ml/min 03/25/16 05:15 BUN/Creatinine Ratio 16.7 03/25/16 05:15 Glucose 108 mg/dL (70-105) H 03/25/16 05:15 Calcium 9.4 mg/dL (8.6-10.3) 03/25/16 05:15 Phosphorus 3.8 mg/dL (2.5-5.0) 03/25/16 05:15 Magnesium 2.0 mg/dL (1.9-2.7) 03/25/16 05:15 Ferritin 136 ng/mL (30-400) 03/19/16 07:40 Total Bilirubin 0.5 mg/dL (0.3-1.0) 03/22/16 04:50 AST 20 U/L (13-39) 03/22/16 04:50 ALT 10 U/L (7-52) 03/22/16 04:50 Alkaline Phosphatase 79 U/L (34-104) 03/22/16 04:50 Ammonia 41 umol/L (16-53) 03/10/16 04:30 B-Natriuretic Peptide 111.0 pg/mL (5.0-100.0) H 03/22/16 04:50 Total Protein 6.8 gm/dL (6.0-8.3) 03/22/16 04:50 Albumin 3.4 gm/dL (4.2-5.5) L 03/22/16 04:50 Globulin 3.4 gm/dL 03/22/16 04:50 Albumin/Globulin Ratio 1.0 (1.0-1.8) 03/22/16 04:50 Triglycerides 63 mg/dL (<150) 03/25/16 05:15 Cholesterol 109 mg/dL (<200) 03/25/16 05:15 Carcinoembryonic Ag 2.7 ng/mL (0.0-4.7) 03/18/16 06:19 Vitamin B12 389 pg/mL (211-946) 03/10/16 04:30 Folic Acid 13.3 ng/mL (>3.0) 03/10/16 04:30 TSH 2.57 uIU/ml (0.34-5.60) 03/10/16 04:30 Urine Source CATH 03/13/16 16:00 Urine Color YELLOW 03/13/16 16:00 Urine Clarity CLEAR (CLEAR) 03/13/16 16:00 Urine pH 5.5 03/13/16 16:00 Ur Specific [place] 1.010 (1.005-1.030) 03/13/16 16:00 Urine Protein NEGATIVE mg/dL (NEGATIVE) 03/13/16 16:00 Urine Glucose (UA) NEGATIVE mg/dL (NEGATIVE) 03/13/16 16:00 Urine Ketones NEGATIVE mg/dL (NEGATIVE) 03/13/16 16:00 Urine Blood LARGE (NEGATIVE) H 03/13/16 16:00 Urine Nitrate NEGATIVE (NEGATIVE) 03/13/16 16:00 Urine Bilirubin NEGATIVE (NEGATIVE) 03/13/16 16:00 Urine Urobilinogen 1.0 E.U./dL (0.2 - 1.0) 03/13/16 16:00 Ur Leukocyte Esterase TRACE (NEGATIVE) H 03/13/16 16:00 Urine RBC 10-25 /hpf (0-5) H 03/13/16 16:00 Urine WBC 6-10 /hpf (0-5) H 03/13/16 16:00 Ur Epithelial Cells FEW /lpf (FEW) 03/13/16 16:00 Urine Bacteria OCCASIONAL /hpf (NONE SEEN) 03/13/16 16:00 Blood Type B POSITIVE 03/19/16 16:10 Antibody Screen NEGATIVE 03/19/16 16:10 Crossmatch See Detail 03/19/16 16:10 - Physical Exam Vitals and I&O: Vital Signs Temp 98 F 03/25/16 08:00 Pulse 94 03/25/16 11:18 Resp 18 03/25/16 11:18 BP 136/85 03/25/16 08:00 Pulse Ox 96 03/25/16 11:18 Intake & Output 03/24/16 03/25/16 03/25/16 18:59 06:59 18:59 Intake Total 1640 1180 100 Output Total 185 150 Balance 1455 1030 100 Intake: Intake, IV Amount 500 100 100 Pantoprazole 80 mg In 100 100 Sodium Chloride 0.9% 100 ml @ 10 mls/hr IV Q10H [facility] Rx#:[id number] Piperacillin Sodium/ 200 Tazobact 4.5 gm In Sodium Chloride 0.9% 100 ml @ 100 mls/hr IV Q8H [facility] Rx# :[id number] metroNIDAZOLE 500mg/NS 200 100 100mL 500 mg In Premix Fluid 1 bag @ 100 mls/hr IV Q8H [facility] Rx#:[id number] Oral 300 240 TPN/PPN 840 840 Output: Drainage 160 150 Left Lower Abdomen 160 50 Right Lower Abdomen 100 Other 25 Other: # Voids 2 2 Stool Characteristics Liquid Active Medications: Current Medications Acetaminophen (Tylenol) 650 mg PO Q6HR PRN PRN Reason: PAIN OR TEMP >100 Stop: 05/08/16 21:33 Last Admin: 03/24/16 21:52 Dose: 650 mg Acetaminophen/Codeine Phosphate (Tylenol W/Codeine #3) 1 tab PO Q4HR PRN PRN Reason: PAIN Stop: 05/08/16 21:33 Al Hydrox/Mg Hydrox/Simethicone (Maalox) 30 ml PO Q4HR PRN PRN Reason: Indigestion Stop: 05/08/16 21:33 Albuterol Sulfate (Albuterol 2.5mg/3ml Neb Ud) 2.5 mg IH Q2HR PRN PRN Reason: Shortness of Breath or Wheeze Stop: 05/08/16 21:37 Albuterol Sulfate (Albuterol 2.5mg/3ml Neb Ud) 2.5 mg HHN Q4HRT [facility] Stop: 05/20/16 18:59 Last Admin: 03/25/16 11:18 Dose: Not Given Chlorhexidine Gluconate (Peridex) 15 ml MM 0800,2000 [facility] Stop: 05/20/16 19:59 Last Admin: 03/24/16 10:53 Dose: Not Given Donepezil HCl (Aricept) 10 mg PO HS [facility] Stop: 05/09/16 20:59 Last Admin: 03/24/16 21:52 Dose: 10 mg Enoxaparin Sodium (Lovenox) 30 mg SUBQ DAILY [facility] Stop: 05/22/16 08:59 Last Admin: 03/25/16 09:17 Dose: 30 mg Pantoprazole Sodium 80 mg/ (Sodium Chloride) 100 mls @ 10 mls/hr IV Q10H [facility] Stop: 05/08/16 21:44 Last Admin: 03/25/16 09:24 Dose: 10 mls/hr Dextrose/Sodium Chloride (D5-0.45ns) 1,000 mls @ 40 mls/hr IV .Q24H [facility] Stop: 05/18/16 12:59 Last Admin: 03/22/16 13:00 Dose: 40 mls/hr Metronidazole 500 mg/ (Miscellaneous) 100 mls @ 100 mls/hr IV Q8H [facility] Stop: 05/20/16 09:14 Last Admin: 03/25/16 09:25 Dose: 100 mls/hr Norepinephrine Bitartrate 4 mg (/ Dextrose) 254 mls @ 15.24 mls/hr IV TITR PRN ; Protocol; 4 MCG/MIN PRN Reason: BP MAINTENANCE (PER PROTOCOL) Stop: 05/20/16 11:23 Last Titration: 03/21/16 14:45 Dose: 0 mcg/min, 0 mls/hr Sodium Chloride (Nacl 0.9%) 1,000 mls @ 0 mls/hr IV .Q0M [facility] PRN Reason: Wide Open Stop: 05/20/16 11:44 Parenteral Electrolytes 20 ml/Multivitamins/Minerals 10 ml/Chromium/Copper/ Manganese/Zinc 1 ml/ Amino Acids 1,031 mls @ 70 mls/hr IV .[id number] [facility] Stop: 04/18/16 14:59 Last Admin: 03/22/16 15:00 Dose: 70 mls/hr Levofloxacin (Levaquin Pb) 500 mg in 100 mls @ 100 mls/hr IV Q24HR [facility] Stop: 05/24/16 00:59 Last Admin: 03/25/16 03:42 Dose: 100 mls/hr Lactobacillus Rhamnosus (Culturelle) 1 each PO DAILY [facility] Stop: 05/22/16 08:59 Last Admin: 03/25/16 09:16 Dose: 1 each Meclizine HCl (Antivert) 25 mg PO DAILY PRN PRN Reason: Nausea / Vomiting Stop: 05/08/16 21:37 Metoclopramide HCl (Reglan) 10 mg IVP Q8HR [facility] Stop: 05/23/16 12:59 Last Admin: 03/25/16 06:24 Dose: 10 mg Mirtazapine (Remeron) 7.5 mg PO HS [facility] PRN Reason: Protocol Stop: 05/09/16 20:59 Last Admin: 03/24/16 21:52 Dose: 7.5 mg Miscellaneous (Vte Chemical Prophylaxis Screen/ Admission) 1 ea MC PRN PRN PRN Reason: PROTOCOL Stop: 05/10/16 17:12 Miscellaneous (Tpn Per Pharmacy) 1 ea MC DAILY [facility] Stop: 05/20/16 14:39 Miscellaneous (Probiotic Screen) 1 ea MC PRN PRN PRN Reason: PROTOCOL Stop: 05/21/16 14:39 Morphine Sulfate (Morphine) 2 mg IV Q3H PRN PRN Reason: Pain (Moderate) Stop: 05/20/16 10:29 Morphine Sulfate (Morphine) 2 mg IVP Q4HR PRN PRN Reason: Pain (Moderate) Stop: 05/20/16 13:00 Ondansetron HCl (Zofran) 4 mg IV Q8H PRN PRN Reason: Nausea / Vomiting Stop: 05/08/16 21:37 Last Admin: 03/21/16 20:01 Dose: 4 mg Quetiapine Fumarate (Seroquel) 100 mg PO QPM [facility] PRN Reason: Protocol Stop: 05/09/16 16:59 Last Admin: 03/24/16 17:08 Dose: 100 mg Tamsulosin HCl (Flomax) 0.4 mg PO DAILY [facility] Stop: 05/09/16 08:59 Last Admin: 03/25/16 09:16 Dose: 0.4 mg General: alert HEENT: NC/AT, PERRLA Neck: Supple Lungs: CTAB Cardiovascular: RRR, Normal S1, Normal S2, without murmur Abdomen: soft non-tender, non-distended Extremities: clear - Procedures Procedures: Procedures Procedure Code Date APPENDECTOMY ADD-ON 82038 03/10/16 BIOPSY OF BOWEL 49775 03/10/16 BYPASS DESCENDING COLON TO CUTANEOUS, OPEN APPROACH [id number] 03/10/16 COLOSTOMY 68979 03/10/16 EGD BIOPSY SINGLE/MULTIPLE 41505 03/10/16 EXCISION OF ILEUM, OPEN APPROACH [id number] 03/10/16 EXCISION OF LARGE INTESTINE, PERCUTANEOUS APPROACH, DIAGN [id number] 03/10/16 EXCISION OF STOMACH, ENDO, DIAGN [id number] 03/10/16 FREEING OF BOWEL ADHESION 88497 03/10/16 GROUP PSYCHOTHERAPY 29569 06/08/03 INDIVID PSYCHOTHERAP NEC 94.39 06/08/03 OTHER GROUP THERAPY 94.44 06/08/03 RELEASE ILEUM, OPEN APPROACH [id number] 03/10/16 REMOVAL OF SMALL INTESTINE 85402 03/10/16 RESECTION OF APPENDIX, OPEN APPROACH [id number] 03/10/16 Internal Medicine Assmt/Plan - Assessment Assessment: colon mass- adenoca s\p recection colostomy GI BLEED ANEMIA HYPOTENSION-resolved leukocytosis malnutrition - Plan Plan: taper ppn since pt is tolerating po diet monitor fever continue ivabx ltac eval colostomy care cbc/bmp in am
--- NOTE | 2016-03-25 13:35 | Infectious Disease Prog Note ---
Infectious Disease Subjective - Review of Systems Service Date: 03/25/16 Subjective: Doing well, developed low grade fevers. Infectious Disease Objective - Results Result Diagrams: 03/25/16 05:15 03/25/16 05:15 Recent Labs: Laboratory Last Values WBC 21.2 Th/cmm (4.8-10.8) H* D 03/25/16 05:15 RBC 4.24 Mil/cmm (3.80-5.80) 03/25/16 05:15 Hgb 11.4 gm/dL (12.6-17.4) L 03/25/16 05:15 Hct 34.4 % (39.0-49.0) L 03/25/16 05:15 MCV 81.1 fl (80-99) 03/25/16 05:15 MCH 26.8 pg (27.0-31.0) L 03/25/16 05:15 MCHC Differential 33.1 pg (28.0-36.0) 03/25/16 05:15 RDW 20.8 % (11.5-20.0) H 03/25/16 05:15 Plt Count 424 Th/cmm (150-400) H 03/25/16 05:15 MPV 8.6 fl 03/25/16 05:15 Neutrophils % 66.8 % (40.0-80.0) 03/17/16 06:19 Band Neutrophils % 3 % (0-10) 03/24/16 06:45 Lymphocytes % 12.9 % (20.0-50.0) L 03/17/16 06:19 Monocytes % 8.2 % (2.0-10.0) 03/17/16 06:19 Eosinophils % 11.8 % (0.0-5.0) H 03/17/16 06:19 Basophils % 0.3 % (0.0-2.0) 03/17/16 06:19 Neutrophils (Manual) 89 % (40-80) H 03/25/16 05:15 Lymphocytes 5 % (20-50) L 03/25/16 05:15 Monocytes 6 % (2-10) 03/25/16 05:15 Eosinophils 1 % (0-5) 03/24/16 06:45 Basophils 1 % (0-3) 03/12/16 08:00 Platelet Estimate ADEQUATE (NORMAL) 03/25/16 05:15 Platelet Morphology GIANT PLATELETS SEEN (NORMAL) 03/25/16 05:15 Polychromasia 1+ 03/24/16 06:45 Anisocytosis 1+ 03/25/16 05:15 Microcytosis 1+ 03/21/16 06:19 RBC Morph Micro Appear ABNORMAL (NORMAL) 03/25/16 05:15 PT 11.4 SECONDS (9.5-11.5) 03/24/16 20:04 INR 1.14 (0.5-1.4) 03/24/16 20:04 PTT (Actin FS) 30.2 SECONDS (26.0-38.0) 03/24/16 20:04 Specimen Source Arterial 03/21/16 16:45 Sample Site Right Radial 03/21/16 16:45 pH 7.37 (7.35-7.45) 03/21/16 16:45 pCO2 40.0 mmHg (35.0-45.0) 03/21/16 16:45 pO2 85.0 mmHg (80.0-100.0) 03/21/16 16:45 HCO3 23.1 mmol/L (20.0-26.0) 03/21/16 16:45 Base Excess -2.0 mmol/L (-3.0-3.0) 03/21/16 16:45 O2 Saturation 96.0 % (92.0-100.0) 03/21/16 16:45 Galo Test YES 03/21/16 16:45 Vent Rate NA 03/21/16 16:45 Inspired O2 40 03/21/16 16:45 Tidal Volume NA 03/21/16 16:45 PEEP NA 03/21/16 16:45 Pressure (ins/psv/peep) NA 03/21/16 16:45 Critical Value E.HERNANDEZ 03/21/16 16:45 Sodium 135 mEq/L (136-145) L 03/25/16 05:15 Potassium 3.9 mEq/L (3.5-5.1) 03/25/16 05:15 Chloride 105 mEq/L (98-107) 03/25/16 05:15 Carbon Dioxide 25.8 mEq/L (21.0-31.0) 03/25/16 05:15 Anion Gap 8.1 (7.0-16.0) 03/25/16 05:15 BUN 15 mg/dL (7-25) 03/25/16 05:15 Creatinine 0.9 mg/dL (0.7-1.3) 03/25/16 05:15 Est GFR ( Amer) > 60.0 ml/min (>90) 03/25/16 05:15 Est GFR (Non-Af Amer) > 60.0 ml/min 03/25/16 05:15 BUN/Creatinine Ratio 16.7 03/25/16 05:15 Glucose 108 mg/dL (70-105) H 03/25/16 05:15 Calcium 9.4 mg/dL (8.6-10.3) 03/25/16 05:15 Phosphorus 3.8 mg/dL (2.5-5.0) 03/25/16 05:15 Magnesium 2.0 mg/dL (1.9-2.7) 03/25/16 05:15 Ferritin 136 ng/mL (30-400) 03/19/16 07:40 Total Bilirubin 0.5 mg/dL (0.3-1.0) 03/22/16 04:50 AST 20 U/L (13-39) 03/22/16 04:50 ALT 10 U/L (7-52) 03/22/16 04:50 Alkaline Phosphatase 79 U/L (34-104) 03/22/16 04:50 Ammonia 41 umol/L (16-53) 03/10/16 04:30 B-Natriuretic Peptide 111.0 pg/mL (5.0-100.0) H 03/22/16 04:50 Total Protein 6.8 gm/dL (6.0-8.3) 03/22/16 04:50 Albumin 3.4 gm/dL (4.2-5.5) L 03/22/16 04:50 Globulin 3.4 gm/dL 03/22/16 04:50 Albumin/Globulin Ratio 1.0 (1.0-1.8) 03/22/16 04:50 Triglycerides 63 mg/dL (<150) 03/25/16 05:15 Cholesterol 109 mg/dL (<200) 03/25/16 05:15 Carcinoembryonic Ag 2.7 ng/mL (0.0-4.7) 03/18/16 06:19 Vitamin B12 389 pg/mL (211-946) 03/10/16 04:30 Folic Acid 13.3 ng/mL (>3.0) 03/10/16 04:30 TSH 2.57 uIU/ml (0.34-5.60) 03/10/16 04:30 Urine Source CATH 03/13/16 16:00 Urine Color YELLOW 03/13/16 16:00 Urine Clarity CLEAR (CLEAR) 03/13/16 16:00 Urine pH 5.5 03/13/16 16:00 Ur Specific [place] 1.010 (1.005-1.030) 03/13/16 16:00 Urine Protein NEGATIVE mg/dL (NEGATIVE) 03/13/16 16:00 Urine Glucose (UA) NEGATIVE mg/dL (NEGATIVE) 03/13/16 16:00 Urine Ketones NEGATIVE mg/dL (NEGATIVE) 03/13/16 16:00 Urine Blood LARGE (NEGATIVE) H 03/13/16 16:00 Urine Nitrate NEGATIVE (NEGATIVE) 03/13/16 16:00 Urine Bilirubin NEGATIVE (NEGATIVE) 03/13/16 16:00 Urine Urobilinogen 1.0 E.U./dL (0.2 - 1.0) 03/13/16 16:00 Ur Leukocyte Esterase TRACE (NEGATIVE) H 03/13/16 16:00 Urine RBC 10-25 /hpf (0-5) H 03/13/16 16:00 Urine WBC 6-10 /hpf (0-5) H 03/13/16 16:00 Ur Epithelial Cells FEW /lpf (FEW) 03/13/16 16:00 Urine Bacteria OCCASIONAL /hpf (NONE SEEN) 03/13/16 16:00 Blood Type B POSITIVE 03/19/16 16:10 Antibody Screen NEGATIVE 03/19/16 16:10 Crossmatch See Detail 03/19/16 16:10 - Physical Exam Vitals and I&O: Vital Signs Temp 99.4 F 03/25/16 12:11 Pulse 104 03/25/16 12:11 Resp 18 03/25/16 12:11 BP 133/80 03/25/16 12:11 Pulse Ox 97 03/25/16 12:11 Intake & Output 03/24/16 03/25/16 03/25/16 18:59 06:59 18:59 Intake Total 1640 1180 100 Output Total 185 150 Balance 1455 1030 100 Intake: Intake, IV Amount 500 100 100 Pantoprazole 80 mg In 100 100 Sodium Chloride 0.9% 100 ml @ 10 mls/hr IV Q10H [facility] Rx#:[id number] Piperacillin Sodium/ 200 Tazobact 4.5 gm In Sodium Chloride 0.9% 100 ml @ 100 mls/hr IV Q8H [facility] Rx# :[id number] metroNIDAZOLE 500mg/NS 200 100 100mL 500 mg In Premix Fluid 1 bag @ 100 mls/hr IV Q8H [facility] Rx#:[id number] Oral 300 240 TPN/PPN 840 840 Output: Drainage 160 150 Left Lower Abdomen 160 50 Right Lower Abdomen 100 Other 25 Other: # Voids 2 2 Stool Characteristics Liquid Active Medications: Current Medications Acetaminophen (Tylenol) 650 mg PO Q6HR PRN PRN Reason: PAIN OR TEMP >100 Stop: 05/08/16 21:33 Last Admin: 03/24/16 21:52 Dose: 650 mg Acetaminophen/Codeine Phosphate (Tylenol W/Codeine #3) 1 tab PO Q4HR PRN PRN Reason: PAIN Stop: 05/08/16 21:33 Al Hydrox/Mg Hydrox/Simethicone (Maalox) 30 ml PO Q4HR PRN PRN Reason: Indigestion Stop: 05/08/16 21:33 Albuterol Sulfate (Albuterol 2.5mg/3ml Neb Ud) 2.5 mg IH Q2HR PRN PRN Reason: Shortness of Breath or Wheeze Stop: 05/08/16 21:37 Albuterol Sulfate (Albuterol 2.5mg/3ml Neb Ud) 2.5 mg HHN Q4HRT [facility] Stop: 05/20/16 18:59 Last Admin: 03/25/16 11:18 Dose: Not Given Chlorhexidine Gluconate (Peridex) 15 ml MM 0800,2000 [facility] Stop: 05/20/16 19:59 Last Admin: 03/24/16 10:53 Dose: Not Given Donepezil HCl (Aricept) 10 mg PO HS [facility] Stop: 05/09/16 20:59 Last Admin: 03/24/16 21:52 Dose: 10 mg Enoxaparin Sodium (Lovenox) 30 mg SUBQ DAILY [facility] Stop: 05/22/16 08:59 Last Admin: 03/25/16 09:17 Dose: 30 mg Pantoprazole Sodium 80 mg/ (Sodium Chloride) 100 mls @ 10 mls/hr IV Q10H [facility] Stop: 05/08/16 21:44 Last Admin: 03/25/16 09:24 Dose: 10 mls/hr Dextrose/Sodium Chloride (D5-0.45ns) 1,000 mls @ 40 mls/hr IV .Q24H [facility] Stop: 05/18/16 12:59 Last Admin: 03/22/16 13:00 Dose: 40 mls/hr Metronidazole 500 mg/ (Miscellaneous) 100 mls @ 100 mls/hr IV Q8H [facility] Stop: 05/20/16 09:14 Last Admin: 03/25/16 09:25 Dose: 100 mls/hr Norepinephrine Bitartrate 4 mg (/ Dextrose) 254 mls @ 15.24 mls/hr IV TITR PRN ; Protocol; 4 MCG/MIN PRN Reason: BP MAINTENANCE (PER PROTOCOL) Stop: 05/20/16 11:23 Last Titration: 03/21/16 14:45 Dose: 0 mcg/min, 0 mls/hr Sodium Chloride (Nacl 0.9%) 1,000 mls @ 0 mls/hr IV .Q0M [facility] PRN Reason: Wide Open Stop: 05/20/16 11:44 Levofloxacin (Levaquin Pb) 500 mg in 100 mls @ 100 mls/hr IV Q24HR [facility] Stop: 05/24/16 00:59 Last Admin: 03/25/16 03:42 Dose: 100 mls/hr Multivitamins/Minerals 10 ml/Amino Acids/Electrolytes/Dextrose/ Fat Emulsion Intravenous 1,680 mls @ 70 mls/hr IV .Q24H [facility] Stop: 05/24/16 14:59 Lactobacillus Rhamnosus (Culturelle) 1 each PO DAILY [facility] Stop: 05/22/16 08:59 Last Admin: 03/25/16 09:16 Dose: 1 each Meclizine HCl (Antivert) 25 mg PO DAILY PRN PRN Reason: Nausea / Vomiting Stop: 05/08/16 21:37 Metoclopramide HCl (Reglan) 10 mg IVP Q8HR [facility] Stop: 05/23/16 12:59 Last Admin: 03/25/16 06:24 Dose: 10 mg Mirtazapine (Remeron) 7.5 mg PO HS [facility] PRN Reason: Protocol Stop: 05/09/16 20:59 Last Admin: 03/24/16 21:52 Dose: 7.5 mg Miscellaneous (Vte Chemical Prophylaxis Screen/ Admission) 1 ea PRN PRN PRN Reason: PROTOCOL Stop: 05/10/16 17:12 Miscellaneous (Tpn Per Pharmacy) 1 ea MC DAILY [facility] Stop: 05/20/16 14:39 Miscellaneous (Probiotic Screen) 1 ea PRN PRN PRN Reason: PROTOCOL Stop: 05/21/16 14:39 Morphine Sulfate (Morphine) 2 mg IV Q3H PRN PRN Reason: Pain (Moderate) Stop: 05/20/16 10:29 Morphine Sulfate (Morphine) 2 mg IVP Q4HR PRN PRN Reason: Pain (Moderate) Stop: 05/20/16 13:00 Ondansetron HCl (Zofran) 4 mg IV Q8H PRN PRN Reason: Nausea / Vomiting Stop: 05/08/16 21:37 Last Admin: 03/21/16 20:01 Dose: 4 mg Quetiapine Fumarate (Seroquel) 100 mg PO QPM AMAURI PRN Reason: Protocol Stop: 05/09/16 16:59 Last Admin: 03/24/16 17:08 Dose: 100 mg Tamsulosin HCl (Flomax) 0.4 mg PO DAILY [facility] Stop: 05/09/16 08:59 Last Admin: 03/25/16 09:16 Dose: 0.4 mg General: no acute distress HEENT: atraumatic, normocephalic, PERRLA Neck: supple Cardiovascular: S1S2, regular Lungs: clear to auscultation bilaterally, clear to percussion Abdomen: soft, other (colostomy.), no tender, no distended Extremities: no cyanosis, no clubbing, no edema Neurological: awake, alert, oriented - Procedures Procedures: Procedures Procedure Code Date APPENDECTOMY ADD-ON 45482 03/10/16 BIOPSY OF BOWEL 00861 03/10/16 BYPASS DESCENDING COLON TO CUTANEOUS, OPEN APPROACH [id number] 03/10/16 COLOSTOMY 59464 03/10/16 EGD BIOPSY SINGLE/MULTIPLE 83399 03/10/16 EXCISION OF ILEUM, OPEN APPROACH [id number] 03/10/16 EXCISION OF LARGE INTESTINE, PERCUTANEOUS APPROACH, DIAGN [id number] 03/10/16 EXCISION OF STOMACH, ENDO, DIAGN [id number] 03/10/16 FREEING OF BOWEL ADHESION 19953 03/10/16 GROUP PSYCHOTHERAPY 08088 06/08/03 INDIVID PSYCHOTHERAP NEC 94.39 06/08/03 OTHER GROUP THERAPY 94.44 06/08/03 RELEASE ILEUM, OPEN APPROACH [id number] 03/10/16 REMOVAL OF SMALL INTESTINE 50193 03/10/16 RESECTION OF APPENDIX, OPEN APPROACH [id number] 03/10/16 Infectious Disease Assmt/Plan - Problem List Patient Problems: All Active Problems BLOOD CLOT IN STOOL (Acute) - Assessment Assessment: Impression: 1. hypotension improved. fever and leukocytosis? postoperative, versus peritonitis.? sepsis. 2, Intraabdominal mass? colon CA. associated colitis. 3. GI Bleed 2/2 #2. 4. Dementia. 5. History of hypertension. 6. s/p colectomy and colostomy. RECOMMENDATIONS: Continue levaquin and flagyl.
[2016-03-25] MEDS: D5-0.45NS 1,000 ML IV SCH (13:47)
[2016-03-25] MEDS: [UNRECOGNIZED DRUG - OTHER] IV SCH (14:24)
[2016-03-25] MEDS: MULTIVITAMIN IV SCH (14:24)
[2016-03-25] MEDS: DEXTROSE 70% IV SCH (14:24)
[2016-03-25] MEDS: AMINO ACIDS IV SCH (14:24)
[2016-03-26] MEDS: Levofloxacin 500mg/100mL 500 MG/100 ML BAG IV SCH (01:28)
[2016-03-26] MEDS: metroNIDAZOLE 500mg/NS 100mL 500 MG in Premix Fluid 1 BAG IV SCH ×3 (02:30→17:28)
[2016-03-26] MEDS: Albuterol Nebulizer 2.5mg/3mL HHN SCH ×7 (03:30→22:21)
[2016-03-26] MEDS: Metoclopramide 5 mg/mL 2mL Vial IVP SCH ×3 (05:46→20:14)
[2016-03-26 07:35] LABS: HEMATOCRIT 36.4 % (39.0-49.0); MEAN CELL VOLUME 81.5 fl (80-99); MEAN CORPUSCULAR HEMOGLOBIN 26.8 pg (27.0-31.0); MEAN CORPUSCULAR HGB CONC 32.9 pg (28.0-36.0); MEAN PLATELET VOLUME 8.6 fl; PLATELET COUNT 447 Th/cmm (150-400); RED BLOOD COUNT 4.47 Mil/cmm (3.80-5.80); RED CELL DISTRIBUTION WIDTH 20.3 % (11.5-20.0)
[2016-03-26 07:41] LABS: ANION GAP 14.5 (7.0-16.0); BUN - UREA NITROGEN 21 mg/dL (7-25); CALCIUM SERUM 9.4 mg/dL (8.6-10.3); CARBON DIOXIDE 20.4 mEq/L (21.0-31.0); CHLORIDE 103 mEq/L (98-107); GLUCOSE 189 mg/dL (70-105); POTASSIUM SERUM 3.9 mEq/L (3.5-5.1); SODIUM SERUM 134 mEq/L (136-145)
[2016-03-26 08:11] LABS: WHITE BLOOD COUNT 24.6 Th/cmm (4.8-10.8)
[2016-03-26] MEDS: Lactobacillus Rhamnosus 10 Billion CFU Capsule PO SCH (09:23)
[2016-03-26] MEDS: Pantoprazole 80 MG in Sodium Chloride 0.9% 100 ML IV SCH (09:24)
[2016-03-26] MEDS: Enoxaparin 30 mg/0.3 mL 0.3mL Syr SUBQ SCH (09:24)
[2016-03-26] MEDS: Chlorhexidine Gluconate 0.12% 15mL Mouthwash MM SCH ×2 (09:25→19:51)
[2016-03-26 09:33] LABS: BAND NEUTROPHILE 6 % (0-10); METAMYELOCYTE 2 % (0-0); NEUTROPHILS 75 % (40-80); PLATELET ESTIMATE ADEQUATE (NORMAL); PLATELET MORPHOLOGY GIANT PLATELETS SEEN (NORMAL); TOTAL CELLS COUNTED 100
[2016-03-26 09:34] LABS: ANISOCYTOSIS 1+
--- NOTE | 2016-03-26 11:40 | Diagnostic Imaging Report ---
KUB History: Vomiting Comparison: CT abdomen and pelvis on 03/13/2016 Findings: Multiple distended loops of bowel are seen including multiple distended small bowel loops. Postsurgical changes of the anterior abdomen is noted. Moderate stool is seen in the right colon. Distended stomach is also noted. Pancreatic calcifications are noted sequela of chronic pancreatitis IMPRESSION: Multiple distended loops of bowel including multiple distended small bowel loops. Findings may be due to a severe postoperative ileus or a distal small bowel obstruction. Clinical correlation and follow-up is recommended.
--- NOTE | 2016-03-26 12:08 | Internal Medicine Prog Note ---
Internal Medicine Subjective - Subjective Service Date: 03/26/16 (per nursing staff patient vomited x3) Patient seen and examined:: with staff Patient is:: awake Per staff patient is:: other (nausea/vomiting) Internal Medicine Objective - Results Result Diagrams: 03/26/16 06:10 03/26/16 06:10 Recent Labs: Laboratory Last Values WBC 24.6 Th/cmm (4.8-10.8) H* 03/26/16 06:10 RBC 4.47 Mil/cmm (3.80-5.80) 03/26/16 06:10 Hgb 12.0 gm/dL (12.6-17.4) L 03/26/16 06:10 Hct 36.4 % (39.0-49.0) L 03/26/16 06:10 MCV 81.5 fl (80-99) 03/26/16 06:10 MCH 26.8 pg (27.0-31.0) L 03/26/16 06:10 MCHC Differential 32.9 pg (28.0-36.0) 03/26/16 06:10 RDW 20.3 % (11.5-20.0) H 03/26/16 06:10 Plt Count 447 Th/cmm (150-400) H 03/26/16 06:10 MPV 8.6 fl 03/26/16 06:10 Neutrophils % 66.8 % (40.0-80.0) 03/17/16 06:19 Band Neutrophils % 6 % (0-10) 03/26/16 06:10 Lymphocytes % 12.9 % (20.0-50.0) L 03/17/16 06:19 Monocytes % 8.2 % (2.0-10.0) 03/17/16 06:19 Eosinophils % 11.8 % (0.0-5.0) H 03/17/16 06:19 Basophils % 0.3 % (0.0-2.0) 03/17/16 06:19 Neutrophils (Manual) 75 % (40-80) 03/26/16 06:10 Lymphocytes 5 % (20-50) L 03/26/16 06:10 Monocytes 12 % (2-10) H 03/26/16 06:10 Eosinophils 1 % (0-5) 03/24/16 06:45 Basophils 1 % (0-3) 03/12/16 08:00 Metamyelocytes 2 % (0-0) H 03/26/16 06:10 Platelet Estimate ADEQUATE (NORMAL) 03/26/16 06:10 Platelet Morphology GIANT PLATELETS SEEN (NORMAL) 03/26/16 06:10 Polychromasia 1+ 03/24/16 06:45 Anisocytosis 1+ 03/26/16 06:10 Microcytosis 1+ 03/21/16 06:19 RBC Morph Micro Appear ABNORMAL (NORMAL) 03/26/16 06:10 PT 11.4 SECONDS (9.5-11.5) 03/24/16 20:04 INR 1.14 (0.5-1.4) 03/24/16 20:04 PTT (Actin FS) 30.2 SECONDS (26.0-38.0) 03/24/16 20:04 Specimen Source Arterial 03/21/16 16:45 Sample Site Right Radial 03/21/16 16:45 pH 7.37 (7.35-7.45) 03/21/16 16:45 pCO2 40.0 mmHg (35.0-45.0) 03/21/16 16:45 pO2 85.0 mmHg (80.0-100.0) 03/21/16 16:45 HCO3 23.1 mmol/L (20.0-26.0) 03/21/16 16:45 Base Excess -2.0 mmol/L (-3.0-3.0) 03/21/16 16:45 O2 Saturation 96.0 % (92.0-100.0) 03/21/16 16:45 Galo Test YES 03/21/16 16:45 Vent Rate NA 03/21/16 16:45 Inspired O2 40 03/21/16 16:45 Tidal Volume NA 03/21/16 16:45 PEEP NA 03/21/16 16:45 Pressure (ins/psv/peep) NA 03/21/16 16:45 Critical Value E.HERNANDEZ 03/21/16 16:45 Sodium 134 mEq/L (136-145) L 03/26/16 06:10 Potassium 3.9 mEq/L (3.5-5.1) 03/26/16 06:10 Chloride 103 mEq/L (98-107) 03/26/16 06:10 Carbon Dioxide 20.4 mEq/L (21.0-31.0) L 03/26/16 06:10 Anion Gap 14.5 (7.0-16.0) 03/26/16 06:10 BUN 21 mg/dL (7-25) 03/26/16 06:10 Creatinine 1.0 mg/dL (0.7-1.3) 03/26/16 06:10 Est GFR ( Amer) > 60.0 ml/min (>90) 03/26/16 06:10 Est GFR (Non-Af Amer) > 60.0 ml/min 03/26/16 06:10 BUN/Creatinine Ratio 21.0 03/26/16 06:10 Glucose 189 mg/dL (70-105) H 03/26/16 06:10 Whole Bld Lactic Acid 1.80 mmol/L (0.60-2.00) 03/26/16 06:10 Calcium 9.4 mg/dL (8.6-10.3) 03/26/16 06:10 Phosphorus 3.4 mg/dL (2.5-5.0) 03/26/16 06:10 Magnesium 2.0 mg/dL (1.9-2.7) 03/26/16 06:10 Ferritin 136 ng/mL (30-400) 03/19/16 07:40 Total Bilirubin 0.5 mg/dL (0.3-1.0) 03/22/16 04:50 AST 20 U/L (13-39) 03/22/16 04:50 ALT 10 U/L (7-52) 03/22/16 04:50 Alkaline Phosphatase 79 U/L (34-104) 03/22/16 04:50 Ammonia 41 umol/L (16-53) 03/10/16 04:30 B-Natriuretic Peptide 111.0 pg/mL (5.0-100.0) H 03/22/16 04:50 Total Protein 6.8 gm/dL (6.0-8.3) 03/22/16 04:50 Albumin 3.4 gm/dL (4.2-5.5) L 03/22/16 04:50 Globulin 3.4 gm/dL 03/22/16 04:50 Albumin/Globulin Ratio 1.0 (1.0-1.8) 03/22/16 04:50 Prealbumin 11 mg/dL (10-36) 03/25/16 05:15 Triglycerides 63 mg/dL (<150) 03/25/16 05:15 Cholesterol 109 mg/dL (<200) 03/25/16 05:15 Carcinoembryonic Ag 2.7 ng/mL (0.0-4.7) 03/18/16 06:19 Vitamin B12 389 pg/mL (211-946) 03/10/16 04:30 Folic Acid 13.3 ng/mL (>3.0) 03/10/16 04:30 TSH 2.57 uIU/ml (0.34-5.60) 03/10/16 04:30 Urine Source CATH 03/13/16 16:00 Urine Color YELLOW 03/13/16 16:00 Urine Clarity CLEAR (CLEAR) 03/13/16 16:00 Urine pH 5.5 03/13/16 16:00 Ur Specific [place] 1.010 (1.005-1.030) 03/13/16 16:00 Urine Protein NEGATIVE mg/dL (NEGATIVE) 03/13/16 16:00 Urine Glucose (UA) NEGATIVE mg/dL (NEGATIVE) 03/13/16 16:00 Urine Ketones NEGATIVE mg/dL (NEGATIVE) 03/13/16 16:00 Urine Blood LARGE (NEGATIVE) H 03/13/16 16:00 Urine Nitrate NEGATIVE (NEGATIVE) 03/13/16 16:00 Urine Bilirubin NEGATIVE (NEGATIVE) 03/13/16 16:00 Urine Urobilinogen 1.0 E.U./dL (0.2 - 1.0) 03/13/16 16:00 Ur Leukocyte Esterase TRACE (NEGATIVE) H 03/13/16 16:00 Urine RBC 10-25 /hpf (0-5) H 03/13/16 16:00 Urine WBC 6-10 /hpf (0-5) H 03/13/16 16:00 Ur Epithelial Cells FEW /lpf (FEW) 03/13/16 16:00 Urine Bacteria OCCASIONAL /hpf (NONE SEEN) 03/13/16 16:00 Blood Type B POSITIVE 03/19/16 16:10 Antibody Screen NEGATIVE 03/19/16 16:10 Crossmatch See Detail 03/19/16 16:10 - Physical Exam Vitals and I&O: Vital Signs Temp 99.0 F 01/31/17 07:00 Pulse 116 03/26/16 11:31 Resp 20 03/26/16 11:31 BP 121/77 03/26/16 07:00 Pulse Ox 99 03/26/16 11:31 Intake & Output 03/25/16 03/26/16 03/26/16 18:59 06:59 18:59 Intake Total 2270 1340 100 Balance 2270 1340 100 Intake: Intake, IV Amount 300 300 100 Levofloxacin 500mg/100mL 100 500 mg In 100 ml @ 100 mls/hr IV Q24HR [facility] Rx#: [id number] Pantoprazole 80 mg In 100 100 100 Sodium Chloride 0.9% 100 ml @ 10 mls/hr IV Q10H [facility] Rx#:[id number] metroNIDAZOLE 500mg/NS 200 100 100mL 500 mg In Premix Fluid 1 bag @ 100 mls/hr IV Q8H [facility] Rx#:[id number] Oral 1200 200 TPN/PPN 770 840 Other: # Voids 3 2 # Bowel Movements 1 Active Medications: Current Medications Acetaminophen (Tylenol) 650 mg PO Q6HR PRN PRN Reason: PAIN OR TEMP >100 Stop: 05/08/16 21:33 Last Admin: 03/26/16 11:31 Dose: 650 mg Acetaminophen/Codeine Phosphate (Tylenol W/Codeine #3) 1 tab PO Q4HR PRN PRN Reason: PAIN Stop: 05/08/16 21:33 Al Hydrox/Mg Hydrox/Simethicone (Maalox) 30 ml PO Q4HR PRN PRN Reason: Indigestion Stop: 05/08/16 21:33 Albuterol Sulfate (Albuterol 2.5mg/3ml Neb Ud) 2.5 mg IH Q2HR PRN PRN Reason: Shortness of Breath or Wheeze Stop: 05/08/16 21:37 Albuterol Sulfate (Albuterol 2.5mg/3ml Neb Ud) 2.5 mg HHN Q4HRT [facility] Stop: 05/20/16 18:59 Last Admin: 03/26/16 11:31 Dose: Not Given Chlorhexidine Gluconate (Peridex) 15 ml MM 0800,2000 [facility] Stop: 05/20/16 19:59 Last Admin: 03/26/16 09:25 Dose: Not Given Donepezil HCl (Aricept) 10 mg PO HS [facility] Stop: 05/09/16 20:59 Last Admin: 03/25/16 21:06 Dose: 10 mg Enoxaparin Sodium (Lovenox) 30 mg SUBQ DAILY [facility] Stop: 05/22/16 08:59 Last Admin: 03/26/16 09:24 Dose: 30 mg Pantoprazole Sodium 80 mg/ (Sodium Chloride) 100 mls @ 10 mls/hr IV Q10H [facility] Stop: 05/08/16 21:44 Last Admin: 03/26/16 09:24 Dose: 10 mls/hr Dextrose/Sodium Chloride (D5-0.45ns) 1,000 mls @ 40 mls/hr IV .Q24H [facility] Stop: 05/18/16 12:59 Last Admin: 03/25/16 13:47 Dose: 40 mls/hr Metronidazole 500 mg/ (Miscellaneous) 100 mls @ 100 mls/hr IV Q8H [facility] Stop: 05/20/16 09:14 Last Admin: 03/26/16 09:23 Dose: 100 mls/hr Norepinephrine Bitartrate 4 mg (/ Dextrose) 254 mls @ 15.24 mls/hr IV TITR PRN ; Protocol; 4 MCG/MIN PRN Reason: BP MAINTENANCE (PER PROTOCOL) Stop: 05/20/16 11:23 Last Titration: 03/21/16 14:45 Dose: 0 mcg/min, 0 mls/hr Sodium Chloride (Nacl 0.9%) 1,000 mls @ 0 mls/hr IV .Q0M [facility] PRN Reason: Wide Open Stop: 05/20/16 11:44 Levofloxacin (Levaquin Pb) 500 mg in 100 mls @ 100 mls/hr IV Q24HR [facility] Stop: 05/24/16 00:59 Last Infusion: 03/26/16 02:28 Dose: Infused Multivitamins/Minerals 10 ml/Amino Acids/Electrolytes/Dextrose/ Fat Emulsion Intravenous 1,680 mls @ 70 mls/hr IV .Q24H [facility] Stop: 05/24/16 14:59 Last Admin: 03/25/16 14:24 Dose: 70 mls/hr Vancomycin HCl 1.25 gm/ Sodium (Chloride) 250 mls @ 165 mls/hr IV DAILY [facility] Stop: 05/25/16 11:59 Lactobacillus Rhamnosus (Culturelle) 1 each PO DAILY [facility] Stop: 05/22/16 08:59 Last Admin: 03/26/16 09:23 Dose: 1 each Meclizine HCl (Antivert) 25 mg PO DAILY PRN PRN Reason: Nausea / Vomiting Stop: 05/08/16 21:37 Last Admin: 03/26/16 11:32 Dose: 25 mg Metoclopramide HCl (Reglan) 10 mg IVP Q8HR [facility] Stop: 05/23/16 12:59 Last Admin: 03/26/16 05:46 Dose: 10 mg Mirtazapine (Remeron) 7.5 mg PO HS [facility] PRN Reason: Protocol Stop: 05/09/16 20:59 Last Admin: 03/25/16 21:06 Dose: 7.5 mg Miscellaneous (Vte Chemical Prophylaxis Screen/ Admission) 1 ea PRN PRN PRN Reason: PROTOCOL Stop: 05/10/16 17:12 Miscellaneous (Tpn Per Pharmacy) 1 ea MC DAILY [facility] Stop: 05/20/16 14:39 Miscellaneous (Probiotic Screen) 1 ea PRN PRN PRN Reason: PROTOCOL Stop: 05/21/16 14:39 Miscellaneous (Vancomycin Iv Per Pharmacy) 1 ea PRN PRN PRN Reason: PROTOCOL Stop: 05/25/16 11:26 Morphine Sulfate (Morphine) 2 mg IV Q3H PRN PRN Reason: Pain (Moderate) Stop: 05/20/16 10:29 Morphine Sulfate (Morphine) 2 mg IVP Q4HR PRN PRN Reason: Pain (Moderate) Stop: 05/20/16 13:00 Ondansetron HCl (Zofran) 4 mg IV Q8H PRN PRN Reason: Nausea / Vomiting Stop: 05/08/16 21:37 Last Admin: 03/21/16 20:01 Dose: 4 mg Quetiapine Fumarate (Seroquel) 100 mg PO QPM [facility] PRN Reason: Protocol Stop: 05/09/16 16:59 Last Admin: 03/25/16 16:56 Dose: 100 mg Tamsulosin HCl (Flomax) 0.4 mg PO DAILY [facility] Stop: 05/09/16 08:59 Last Admin: 03/26/16 09:24 Dose: 0.4 mg General: weak, alert HEENT: NC/AT, PERRLA Neck: Supple Lungs: CTAB Cardiovascular: RRR, Normal S1, Normal S2, without murmur Abdomen: soft non-tender, non-distended, positive bowel sound Extremities: clear - Procedures Procedures: Procedures Procedure Code Date APPENDECTOMY ADD-ON 43593 03/10/16 BIOPSY OF BOWEL 97897 03/10/16 BYPASS DESCENDING COLON TO CUTANEOUS, OPEN APPROACH [id number] 03/10/16 COLOSTOMY 58036 03/10/16 EGD BIOPSY SINGLE/MULTIPLE 38246 03/10/16 EXCISION OF ILEUM, OPEN APPROACH [id number] 03/10/16 EXCISION OF LARGE INTESTINE, PERCUTANEOUS APPROACH, DIAGN [id number] 03/10/16 EXCISION OF STOMACH, ENDO, DIAGN [id number] 03/10/16 FREEING OF BOWEL ADHESION 62959 03/10/16 GROUP PSYCHOTHERAPY 00529 06/08/03 INDIVID PSYCHOTHERAP NEC 94.39 06/08/03 OTHER GROUP THERAPY 94.44 06/08/03 RELEASE ILEUM, OPEN APPROACH [id number] 03/10/16 REMOVAL OF SMALL INTESTINE 30224 03/10/16 RESECTION OF APPENDIX, OPEN APPROACH [id number] 03/10/16 Internal Medicine Assmt/Plan - Assessment Assessment: colon mass- adenoca s\p recection colostomy GI BLEED ANEMIA HYPOTENSION-resolved leukocytosis malnutrition - Plan Plan: kub today zofran prn aspiration precautions continue ivabx ltac eval colostomy care cbc/bmp in am
--- NOTE | 2016-03-26 14:34 | Infectious Disease Prog Note ---
Infectious Disease Subjective - Review of Systems Service Date: 03/26/16 Subjective: Patient has developed fevers and WBC cpunt went higher today. Infectious Disease Objective - Results Result Diagrams: 03/26/16 06:10 03/26/16 06:10 Recent Labs: Laboratory Last Values WBC 24.6 Th/cmm (4.8-10.8) H* 03/26/16 06:10 RBC 4.47 Mil/cmm (3.80-5.80) 03/26/16 06:10 Hgb 12.0 gm/dL (12.6-17.4) L 03/26/16 06:10 Hct 36.4 % (39.0-49.0) L 03/26/16 06:10 MCV 81.5 fl (80-99) 03/26/16 06:10 MCH 26.8 pg (27.0-31.0) L 03/26/16 06:10 MCHC Differential 32.9 pg (28.0-36.0) 03/26/16 06:10 RDW 20.3 % (11.5-20.0) H 03/26/16 06:10 Plt Count 447 Th/cmm (150-400) H 03/26/16 06:10 MPV 8.6 fl 03/26/16 06:10 Neutrophils % 66.8 % (40.0-80.0) 03/17/16 06:19 Band Neutrophils % 6 % (0-10) 03/26/16 06:10 Lymphocytes % 12.9 % (20.0-50.0) L 03/17/16 06:19 Monocytes % 8.2 % (2.0-10.0) 03/17/16 06:19 Eosinophils % 11.8 % (0.0-5.0) H 03/17/16 06:19 Basophils % 0.3 % (0.0-2.0) 03/17/16 06:19 Neutrophils (Manual) 75 % (40-80) 03/26/16 06:10 Lymphocytes 5 % (20-50) L 03/26/16 06:10 Monocytes 12 % (2-10) H 03/26/16 06:10 Eosinophils 1 % (0-5) 03/24/16 06:45 Basophils 1 % (0-3) 03/12/16 08:00 Metamyelocytes 2 % (0-0) H 03/26/16 06:10 Platelet Estimate ADEQUATE (NORMAL) 03/26/16 06:10 Platelet Morphology GIANT PLATELETS SEEN (NORMAL) 03/26/16 06:10 Polychromasia 1+ 03/24/16 06:45 Anisocytosis 1+ 03/26/16 06:10 Microcytosis 1+ 03/21/16 06:19 RBC Morph Micro Appear ABNORMAL (NORMAL) 03/26/16 06:10 PT 11.4 SECONDS (9.5-11.5) 03/24/16 20:04 INR 1.14 (0.5-1.4) 03/24/16 20:04 PTT (Actin FS) 30.2 SECONDS (26.0-38.0) 03/24/16 20:04 Specimen Source Arterial 03/21/16 16:45 Sample Site Right Radial 03/21/16 16:45 pH 7.37 (7.35-7.45) 03/21/16 16:45 pCO2 40.0 mmHg (35.0-45.0) 03/21/16 16:45 pO2 85.0 mmHg (80.0-100.0) 03/21/16 16:45 HCO3 23.1 mmol/L (20.0-26.0) 03/21/16 16:45 Base Excess -2.0 mmol/L (-3.0-3.0) 03/21/16 16:45 O2 Saturation 96.0 % (92.0-100.0) 03/21/16 16:45 Galo Test YES 03/21/16 16:45 Vent Rate NA 03/21/16 16:45 Inspired O2 40 03/21/16 16:45 Tidal Volume NA 03/21/16 16:45 PEEP NA 03/21/16 16:45 Pressure (ins/psv/peep) NA 03/21/16 16:45 Critical Value E.HERNANDEZ 03/21/16 16:45 Sodium 134 mEq/L (136-145) L 03/26/16 06:10 Potassium 3.9 mEq/L (3.5-5.1) 03/26/16 06:10 Chloride 103 mEq/L (98-107) 03/26/16 06:10 Carbon Dioxide 20.4 mEq/L (21.0-31.0) L 03/26/16 06:10 Anion Gap 14.5 (7.0-16.0) 03/26/16 06:10 BUN 21 mg/dL (7-25) 03/26/16 06:10 Creatinine 1.0 mg/dL (0.7-1.3) 03/26/16 06:10 Est GFR ( Amer) > 60.0 ml/min (>90) 03/26/16 06:10 Est GFR (Non-Af Amer) > 60.0 ml/min 03/26/16 06:10 BUN/Creatinine Ratio 21.0 03/26/16 06:10 Glucose 189 mg/dL (70-105) H 03/26/16 06:10 Hemoglobin A1c % 5.1 % (4.0-6.0) 03/26/16 06:10 Whole Bld Lactic Acid 1.80 mmol/L (0.60-2.00) 03/26/16 06:10 Calcium 9.4 mg/dL (8.6-10.3) 03/26/16 06:10 Phosphorus 3.4 mg/dL (2.5-5.0) 03/26/16 06:10 Magnesium 2.0 mg/dL (1.9-2.7) 03/26/16 06:10 Ferritin 136 ng/mL (30-400) 03/19/16 07:40 Total Bilirubin 0.5 mg/dL (0.3-1.0) 03/22/16 04:50 AST 20 U/L (13-39) 03/22/16 04:50 ALT 10 U/L (7-52) 03/22/16 04:50 Alkaline Phosphatase 79 U/L (34-104) 03/22/16 04:50 Ammonia 41 umol/L (16-53) 03/10/16 04:30 B-Natriuretic Peptide 111.0 pg/mL (5.0-100.0) H 03/22/16 04:50 Total Protein 6.8 gm/dL (6.0-8.3) 03/22/16 04:50 Albumin 3.4 gm/dL (4.2-5.5) L 03/22/16 04:50 Globulin 3.4 gm/dL 03/22/16 04:50 Albumin/Globulin Ratio 1.0 (1.0-1.8) 03/22/16 04:50 Prealbumin 11 mg/dL (10-36) 03/25/16 05:15 Triglycerides 63 mg/dL (<150) 03/25/16 05:15 Cholesterol 109 mg/dL (<200) 03/25/16 05:15 Carcinoembryonic Ag 2.7 ng/mL (0.0-4.7) 03/18/16 06:19 Vitamin B12 389 pg/mL (211-946) 03/10/16 04:30 Folic Acid 13.3 ng/mL (>3.0) 03/10/16 04:30 TSH 2.57 uIU/ml (0.34-5.60) 03/10/16 04:30 Urine Source CATH 03/13/16 16:00 Urine Color YELLOW 03/13/16 16:00 Urine Clarity CLEAR (CLEAR) 03/13/16 16:00 Urine pH 5.5 03/13/16 16:00 Ur Specific [place] 1.010 (1.005-1.030) 03/13/16 16:00 Urine Protein NEGATIVE mg/dL (NEGATIVE) 03/13/16 16:00 Urine Glucose (UA) NEGATIVE mg/dL (NEGATIVE) 03/13/16 16:00 Urine Ketones NEGATIVE mg/dL (NEGATIVE) 03/13/16 16:00 Urine Blood LARGE (NEGATIVE) H 03/13/16 16:00 Urine Nitrate NEGATIVE (NEGATIVE) 03/13/16 16:00 Urine Bilirubin NEGATIVE (NEGATIVE) 03/13/16 16:00 Urine Urobilinogen 1.0 E.U./dL (0.2 - 1.0) 03/13/16 16:00 Ur Leukocyte Esterase TRACE (NEGATIVE) H 03/13/16 16:00 Urine RBC 10-25 /hpf (0-5) H 03/13/16 16:00 Urine WBC 6-10 /hpf (0-5) H 03/13/16 16:00 Ur Epithelial Cells FEW /lpf (FEW) 03/13/16 16:00 Urine Bacteria OCCASIONAL /hpf (NONE SEEN) 03/13/16 16:00 Blood Type B POSITIVE 03/19/16 16:10 Antibody Screen NEGATIVE 03/19/16 16:10 Crossmatch See Detail 03/19/16 16:10 - Physical Exam Vitals and I&O: Vital Signs Temp 101.2 F 03/26/16 11:00 Pulse 116 03/26/16 11:31 Resp 20 03/26/16 11:31 BP 125/76 03/26/16 11:00 Pulse Ox 99 03/26/16 11:31 Intake & Output 03/25/16 03/26/16 03/26/16 18:59 06:59 18:59 Intake Total 2270 1340 200 Balance 2270 1340 200 Intake: Intake, IV Amount 300 300 200 Levofloxacin 500mg/100mL 100 500 mg In 100 ml @ 100 mls/hr IV Q24HR [facility] Rx#: [id number] Pantoprazole 80 mg In 100 100 100 Sodium Chloride 0.9% 100 ml @ 10 mls/hr IV Q10H [facility] Rx#:[id number] metroNIDAZOLE 500mg/NS 200 100 100 100mL 500 mg In Premix Fluid 1 bag @ 100 mls/hr IV Q8H [facility] Rx#:[id number] Oral 1200 200 TPN/PPN 770 840 Other: # Voids 3 2 # Bowel Movements 1 Active Medications: Current Medications Acetaminophen (Tylenol) 650 mg PO Q6HR PRN PRN Reason: PAIN OR TEMP >100 Stop: 05/08/16 21:33 Last Admin: 03/26/16 11:31 Dose: 650 mg Acetaminophen/Codeine Phosphate (Tylenol W/Codeine #3) 1 tab PO Q4HR PRN PRN Reason: PAIN Stop: 05/08/16 21:33 Al Hydrox/Mg Hydrox/Simethicone (Maalox) 30 ml PO Q4HR PRN PRN Reason: Indigestion Stop: 05/08/16 21:33 Albuterol Sulfate (Albuterol 2.5mg/3ml Neb Ud) 2.5 mg IH Q2HR PRN PRN Reason: Shortness of Breath or Wheeze Stop: 05/08/16 21:37 Albuterol Sulfate (Albuterol 2.5mg/3ml Neb Ud) 2.5 mg HHN Q4HRT [facility] Stop: 05/20/16 18:59 Last Admin: 03/26/16 11:31 Dose: Not Given Chlorhexidine Gluconate (Peridex) 15 ml MM 0800,2000 [facility] Stop: 05/20/16 19:59 Last Admin: 03/26/16 09:25 Dose: Not Given Donepezil HCl (Aricept) 10 mg PO HS [facility] Stop: 05/09/16 20:59 Last Admin: 03/25/16 21:06 Dose: 10 mg Enoxaparin Sodium (Lovenox) 30 mg SUBQ DAILY [facility] Stop: 05/22/16 08:59 Last Admin: 03/26/16 09:24 Dose: 30 mg Pantoprazole Sodium 80 mg/ (Sodium Chloride) 100 mls @ 10 mls/hr IV Q10H [facility] Stop: 05/08/16 21:44 Last Admin: 03/26/16 09:24 Dose: 10 mls/hr Dextrose/Sodium Chloride (D5-0.45ns) 1,000 mls @ 40 mls/hr IV .Q24H [facility] Stop: 05/18/16 12:59 Last Admin: 03/25/16 13:47 Dose: 40 mls/hr Metronidazole 500 mg/ (Miscellaneous) 100 mls @ 100 mls/hr IV Q8H [facility] Stop: 05/20/16 09:14 Last Infusion: 03/26/16 10:30 Dose: Infused Norepinephrine Bitartrate 4 mg (/ Dextrose) 254 mls @ 15.24 mls/hr IV TITR PRN ; Protocol; 4 MCG/MIN PRN Reason: BP MAINTENANCE (PER PROTOCOL) Stop: 05/20/16 11:23 Last Titration: 03/21/16 14:45 Dose: 0 mcg/min, 0 mls/hr Sodium Chloride (Nacl 0.9%) 1,000 mls @ 0 mls/hr IV .Q0M [facility] PRN Reason: Wide Open Stop: 05/20/16 11:44 Levofloxacin (Levaquin Pb) 500 mg in 100 mls @ 100 mls/hr IV Q24HR [facility] Stop: 05/24/16 00:59 Last Infusion: 03/26/16 02:28 Dose: Infused Multivitamins/Minerals 10 ml/Amino Acids/Electrolytes/Dextrose/ Fat Emulsion Intravenous 1,680 mls @ 70 mls/hr IV .Q24H [facility] Stop: 05/24/16 14:59 Last Admin: 03/25/16 14:24 Dose: 70 mls/hr Vancomycin HCl 1.25 gm/ Sodium (Chloride) 250 mls @ 165 mls/hr IV DAILY [facility] Stop: 05/25/16 11:59 Last Admin: 03/26/16 12:29 Dose: 165 mls/hr Lactobacillus Rhamnosus (Culturelle) 1 each PO DAILY [facility] Stop: 05/22/16 08:59 Last Admin: 03/26/16 09:23 Dose: 1 each Meclizine HCl (Antivert) 25 mg PO DAILY PRN PRN Reason: Nausea / Vomiting Stop: 05/08/16 21:37 Last Admin: 03/26/16 11:32 Dose: 25 mg Metoclopramide HCl (Reglan) 10 mg IVP Q8HR [facility] Stop: 05/23/16 12:59 Last Admin: 03/26/16 12:26 Dose: 10 mg Mirtazapine (Remeron) 7.5 mg PO HS [facility] PRN Reason: Protocol Stop: 05/09/16 20:59 Last Admin: 03/25/16 21:06 Dose: 7.5 mg Miscellaneous (Vte Chemical Prophylaxis Screen/ Admission) 1 ea PRN PRN PRN Reason: PROTOCOL Stop: 05/10/16 17:12 Miscellaneous (Tpn Per Pharmacy) 1 ea MC DAILY [facility] Stop: 05/20/16 14:39 Miscellaneous (Probiotic Screen) 1 ea PRN PRN PRN Reason: PROTOCOL Stop: 05/21/16 14:39 Miscellaneous (Vancomycin Iv Per Pharmacy) 1 ea PRN PRN PRN Reason: PROTOCOL Stop: 05/25/16 11:26 Morphine Sulfate (Morphine) 2 mg IV Q3H PRN PRN Reason: Pain (Moderate) Stop: 05/20/16 10:29 Morphine Sulfate (Morphine) 2 mg IVP Q4HR PRN PRN Reason: Pain (Moderate) Stop: 05/20/16 13:00 Ondansetron HCl (Zofran) 4 mg IV Q8H PRN PRN Reason: Nausea / Vomiting Stop: 05/08/16 21:37 Last Admin: 03/21/16 20:01 Dose: 4 mg Quetiapine Fumarate (Seroquel) 100 mg PO QPM [facility] PRN Reason: Protocol Stop: 05/09/16 16:59 Last Admin: 03/25/16 16:56 Dose: 100 mg Tamsulosin HCl (Flomax) 0.4 mg PO DAILY [facility] Stop: 05/09/16 08:59 Last Admin: 03/26/16 09:24 Dose: 0.4 mg General: no acute distress, well developed, well nourished HEENT: atraumatic, normocephalic, PERRLA, EOMI Neck: supple, no thyromegaly, no lymphadenopathy Cardiovascular: S1S2, regular Lungs: clear to auscultation bilaterally, clear to percussion Abdomen: soft, tender, distended, other (abdominal incsion wound is dressed with surgical dressing, and it saoked with sersangionous drainage. abd wall edema. Colostomy LLQ.) Extremities: no cyanosis, no clubbing, no edema Neurological: awake, alert, oriented - Procedures Procedures: Procedures Procedure Code Date APPENDECTOMY ADD-ON 20869 03/10/16 BIOPSY OF BOWEL 80642 03/10/16 BYPASS DESCENDING COLON TO CUTANEOUS, OPEN APPROACH [id number] 03/10/16 COLOSTOMY 38056 03/10/16 EGD BIOPSY SINGLE/MULTIPLE 05111 03/10/16 EXCISION OF ILEUM, OPEN APPROACH [id number] 03/10/16 EXCISION OF LARGE INTESTINE, PERCUTANEOUS APPROACH, DIAGN [id number] 03/10/16 EXCISION OF STOMACH, ENDO, DIAGN [id number] 03/10/16 FREEING OF BOWEL ADHESION 45337 03/10/16 GROUP PSYCHOTHERAPY 80040 06/08/03 INDIVID PSYCHOTHERAP NEC 94.39 06/08/03 OTHER GROUP THERAPY 94.44 06/08/03 RELEASE ILEUM, OPEN APPROACH [id number] 03/10/16 REMOVAL OF SMALL INTESTINE 55347 03/10/16 RESECTION OF APPENDIX, OPEN APPROACH [id number] 03/10/16 Infectious Disease Assmt/Plan - Problem List Patient Problems: All Active Problems BLOOD CLOT IN STOOL (Acute) - Assessment Assessment: Impression: 1. Sepsis, fever and leukocytosisperitinitis 2. Peritonitis. 3. GI Bleed 2/2 #2. 4. Dementia. 5. History of hypertension. 6. s/p colectomy and colostomy. 7. Intraabdominal mass? colon CA. associated colitis. 8. Suspect ileus. RECOMMENDATIONS: Continue levaquin and flagyl. Add vanco IV. Sepsis w/u. Surgical eval. [facility].
[2016-03-26] MEDS: DEXTROSE 70% IV SCH (15:36)
[2016-03-26] MEDS: AMINO ACIDS IV SCH (15:36)
[2016-03-26] MEDS: MULTIVITAMIN IV SCH (15:36)
[2016-03-26] MEDS: [UNRECOGNIZED DRUG - OTHER] IV SCH (15:36)
--- NOTE | 2016-03-26 15:59 | Diagnostic Imaging Report ---
CHEST X-RAY: AP view INDICATION: NG tube placement COMPARISON: Chest x-ray 03/22/2016 FINDINGS: NG tube is seen with tip in the stomach. Gaseous distended loops of bowel are seen along the upper abdomen. The visualized lung jefferson demonstrate no focal consolidation. IMPRESSION: NG tube within the stomach. No focal consolidation identified Persistent distended bowel loops.
--- NOTE | 2016-03-26 16:09 | Diagnostic Imaging Report ---
Ultrasound abdomen History: Vomiting COMPARISON: KUB on 03/26/[address] abdomen and pelvis on 03/13/2016 Technique: Sonography of the abdomen was performed in multiple planes. FINDINGS: Exam is limited due to bowel gas patient's medical condition. The liver demonstrates normal echogenicity and measures 16.3 cm. The liver margin is not well-defined however no evidence of focal lesions. A 1 cm echogenic focus is seen along the gallbladder wall. The gallbladder wall measures 3 mm. Small amount of sludge is noted. The common bile duct measures 5 mm. Assessment of the pancreas is limited due to bowel gas. The right kidney measures 9.6 cm. Left kidney measures 8 cm. No evidence of focal lesions or hydronephrosis. The spleen was not visualized on this exam. Prominent loops of bowel are noted. IMPRESSION: Limited exam due to patient's medical condition and bowel gas. 1 cm echogenic focus along the gallbladder wall most suggestive of solitary gallstone. A gallbladder wall polyp or other mass lesions considered less likely. Small amount of gallbladder sludge was also noted. Mild prominence of the gallbladder wall, nonspecific. If indicated follow, nuclear medicine HIDA scan may be obtained for further assessment. The spleen was not visualized. No evidence of hydronephrosis.
[2016-03-26] MEDS: INSULIN ASPART SLIDING SCALE 100 UNITS/ML UNIT SUBQ SCH (17:21)
[2016-03-27] MEDS: INSULIN ASPART SLIDING SCALE 100 UNITS/ML UNIT SUBQ SCH ×4 (01:00→18:10)
[2016-03-27] MEDS: Levofloxacin 500mg/100mL 500 MG/100 ML BAG IV SCH (01:50)
[2016-03-27] MEDS: metroNIDAZOLE 500mg/NS 100mL 500 MG in Premix Fluid 1 BAG IV SCH ×3 (02:15→17:52)
[2016-03-27] MEDS: Albuterol Nebulizer 2.5mg/3mL HHN SCH ×5 (03:18→19:22)
[2016-03-27] MEDS: Metoclopramide 5 mg/mL 2mL Vial IVP SCH ×3 (05:30→23:08)
[2016-03-27] MEDS: Morphine Sulfate 2 mg/mL 1mL Syr IVP PRN (06:43)
[2016-03-27 08:01] LABS: HEMATOCRIT 34.9 % (39.0-49.0); HEMOGLOBIN 11.6 gm/dL (12.6-17.4); MEAN CELL VOLUME 81.3 fl (80-99); MEAN CORPUSCULAR HEMOGLOBIN 27.1 pg (27.0-31.0); MEAN CORPUSCULAR HGB CONC 33.3 pg (28.0-36.0); PLATELET COUNT 397 Th/cmm (150-400); RED BLOOD COUNT 4.29 Mil/cmm (3.80-5.80); RED CELL DISTRIBUTION WIDTH 20.7 % (11.5-20.0)
[2016-03-27 08:10] LABS: ANION GAP 12.4 (7.0-16.0); BUN/CREATININE RATIO 24.7; CALCIUM SERUM 9.2 mg/dL (8.6-10.3); CARBON DIOXIDE 20.1 mEq/L (21.0-31.0); CREATININE - SERUM 1.5 mg/dL (0.7-1.3); POTASSIUM SERUM 4.5 mEq/L (3.5-5.1)
[2016-03-27] MEDS: Chlorhexidine Gluconate 0.12% 15mL Mouthwash MM SCH ×2 (09:00→23:09)
[2016-03-27 10:01] LABS: BAND NEUTROPHILE 6 % (0-10); METAMYELOCYTE 2 % (0-0); NEUTROPHILS 81 % (40-80); TOTAL CELLS COUNTED 100
[2016-03-27 10:02] LABS: ANISOCYTOSIS 1+; PLATELET ESTIMATE ADEQUATE (NORMAL); PLATELET MORPHOLOGY NORMAL (NORMAL)
[2016-03-27] MEDS: Lactobacillus Rhamnosus 10 Billion CFU Capsule PO SCH (10:33)
[2016-03-27] MEDS: Enoxaparin 30 mg/0.3 mL 0.3mL Syr SUBQ SCH (10:37)
[2016-03-27] MEDS: Pantoprazole 80 MG in Sodium Chloride 0.9% 100 ML IV SCH ×2 (11:02→22:26)
[2016-03-27] MEDS: SODIUM CHLORIDE 0.9% IV SCH ×2 (11:14→23:07)
[2016-03-27] MEDS: ERYTHROMYCIN LACT IV SCH ×2 (11:14→23:07)
--- NOTE | 2016-03-27 12:33 | Internal Medicine Prog Note ---
Internal Medicine Subjective - Subjective Service Date: 03/27/16 (on intermittent ngt suction) Patient seen and examined:: with staff Patient is:: awake Internal Medicine Objective - Results Result Diagrams: 03/27/16 06:10 03/27/16 06:10 Recent Labs: Laboratory Last Values WBC 28.0 Th/cmm (4.8-10.8) H* 03/27/16 06:10 RBC 4.29 Mil/cmm (3.80-5.80) 03/27/16 06:10 Hgb 11.6 gm/dL (12.6-17.4) L 03/27/16 06:10 Hct 34.9 % (39.0-49.0) L 03/27/16 06:10 MCV 81.3 fl (80-99) 03/27/16 06:10 MCH 27.1 pg (27.0-31.0) 03/27/16 06:10 MCHC Differential 33.3 pg (28.0-36.0) 03/27/16 06:10 RDW 20.7 % (11.5-20.0) H 03/27/16 06:10 Plt Count 397 Th/cmm (150-400) 03/27/16 06:10 MPV 9.0 fl 03/27/16 06:10 Neutrophils % 66.8 % (40.0-80.0) 03/17/16 06:19 Band Neutrophils % 6 % (0-10) 03/27/16 06:10 Lymphocytes % 12.9 % (20.0-50.0) L 03/17/16 06:19 Monocytes % 8.2 % (2.0-10.0) 03/17/16 06:19 Eosinophils % 11.8 % (0.0-5.0) H 03/17/16 06:19 Basophils % 0.3 % (0.0-2.0) 03/17/16 06:19 Neutrophils (Manual) 81 % (40-80) H 03/27/16 06:10 Lymphocytes 4 % (20-50) L 03/27/16 06:10 Monocytes 7 % (2-10) 03/27/16 06:10 Eosinophils 1 % (0-5) 03/24/16 06:45 Basophils 1 % (0-3) 03/12/16 08:00 Metamyelocytes 2 % (0-0) H 03/27/16 06:10 Platelet Estimate ADEQUATE (NORMAL) 03/27/16 06:10 Platelet Morphology NORMAL (NORMAL) 03/27/16 06:10 Polychromasia 1+ 03/24/16 06:45 Anisocytosis 1+ 03/27/16 06:10 Microcytosis 1+ 03/21/16 06:19 RBC Morph Micro Appear ABNORMAL (NORMAL) 03/27/16 06:10 PT 11.4 SECONDS (9.5-11.5) 03/24/16 20:04 INR 1.14 (0.5-1.4) 03/24/16 20:04 PTT (Actin FS) 30.2 SECONDS (26.0-38.0) 03/24/16 20:04 Specimen Source Arterial 03/21/16 16:45 Sample Site Right Radial 03/21/16 16:45 pH 7.37 (7.35-7.45) 03/21/16 16:45 pCO2 40.0 mmHg (35.0-45.0) 03/21/16 16:45 pO2 85.0 mmHg (80.0-100.0) 03/21/16 16:45 HCO3 23.1 mmol/L (20.0-26.0) 03/21/16 16:45 Base Excess -2.0 mmol/L (-3.0-3.0) 03/21/16 16:45 O2 Saturation 96.0 % (92.0-100.0) 03/21/16 16:45 Galo Test YES 03/21/16 16:45 Vent Rate NA 03/21/16 16:45 Inspired O2 40 03/21/16 16:45 Tidal Volume NA 03/21/16 16:45 PEEP NA 03/21/16 16:45 Pressure (ins/psv/peep) NA 03/21/16 16:45 Critical Value E.HERNANDEZ 03/21/16 16:45 Sodium 131 mEq/L (136-145) L 03/27/16 06:10 Potassium 4.5 mEq/L (3.5-5.1) 03/27/16 06:10 Chloride 103 mEq/L (98-107) 03/27/16 06:10 Carbon Dioxide 20.1 mEq/L (21.0-31.0) L 03/27/16 06:10 Anion Gap 12.4 (7.0-16.0) 03/27/16 06:10 BUN 37 mg/dL (7-25) H 03/27/16 06:10 Creatinine 1.5 mg/dL (0.7-1.3) H 03/27/16 06:10 Est GFR ( Amer) 59.5 ml/min (>90) 03/27/16 06:10 Est GFR (Non-Af Amer) 49.2 ml/min 03/27/16 06:10 BUN/Creatinine Ratio 24.7 03/27/16 06:10 Glucose 115 mg/dL (70-105) H 03/27/16 06:10 POC Glucose 125 MG/DL (70 - 105) H 03/27/16 12:01 Hemoglobin A1c % 5.1 % (4.0-6.0) 03/26/16 06:10 Whole Bld Lactic Acid 1.80 mmol/L (0.60-2.00) 03/26/16 06:10 Calcium 9.2 mg/dL (8.6-10.3) 03/27/16 06:10 Phosphorus 3.5 mg/dL (2.5-5.0) 03/27/16 06:10 Magnesium 2.3 mg/dL (1.9-2.7) 03/27/16 06:10 Ferritin 136 ng/mL (30-400) 03/19/16 07:40 Total Bilirubin 0.5 mg/dL (0.3-1.0) 03/22/16 04:50 AST 20 U/L (13-39) 03/22/16 04:50 ALT 10 U/L (7-52) 03/22/16 04:50 Alkaline Phosphatase 79 U/L (34-104) 03/22/16 04:50 Ammonia 41 umol/L (16-53) 03/10/16 04:30 B-Natriuretic Peptide 111.0 pg/mL (5.0-100.0) H 03/22/16 04:50 Total Protein 6.8 gm/dL (6.0-8.3) 03/22/16 04:50 Albumin 3.4 gm/dL (4.2-5.5) L 03/22/16 04:50 Globulin 3.4 gm/dL 03/22/16 04:50 Albumin/Globulin Ratio 1.0 (1.0-1.8) 03/22/16 04:50 Prealbumin 11 mg/dL (10-36) 03/25/16 05:15 Triglycerides 63 mg/dL (<150) 03/25/16 05:15 Cholesterol 109 mg/dL (<200) 03/25/16 05:15 Carcinoembryonic Ag 2.7 ng/mL (0.0-4.7) 03/18/16 06:19 Vitamin B12 389 pg/mL (211-946) 03/10/16 04:30 Folic Acid 13.3 ng/mL (>3.0) 03/10/16 04:30 TSH 2.57 uIU/ml (0.34-5.60) 03/10/16 04:30 Urine Source CATH 03/13/16 16:00 Urine Color YELLOW 03/13/16 16:00 Urine Clarity CLEAR (CLEAR) 03/13/16 16:00 Urine pH 5.5 03/13/16 16:00 Ur Specific [place] 1.010 (1.005-1.030) 03/13/16 16:00 Urine Protein NEGATIVE mg/dL (NEGATIVE) 03/13/16 16:00 Urine Glucose (UA) NEGATIVE mg/dL (NEGATIVE) 03/13/16 16:00 Urine Ketones NEGATIVE mg/dL (NEGATIVE) 03/13/16 16:00 Urine Blood LARGE (NEGATIVE) H 03/13/16 16:00 Urine Nitrate NEGATIVE (NEGATIVE) 03/13/16 16:00 Urine Bilirubin NEGATIVE (NEGATIVE) 03/13/16 16:00 Urine Urobilinogen 1.0 E.U./dL (0.2 - 1.0) 03/13/16 16:00 Ur Leukocyte Esterase TRACE (NEGATIVE) H 03/13/16 16:00 Urine RBC 10-25 /hpf (0-5) H 03/13/16 16:00 Urine WBC 6-10 /hpf (0-5) H 03/13/16 16:00 Ur Epithelial Cells FEW /lpf (FEW) 03/13/16 16:00 Urine Bacteria OCCASIONAL /hpf (NONE SEEN) 03/13/16 16:00 Vancomycin Trough 8.5 ug/mL (10-20) L 03/27/16 10:50 Blood Type B POSITIVE 03/19/16 16:10 Antibody Screen NEGATIVE 03/19/16 16:10 Crossmatch See Detail 03/19/16 16:10 - Physical Exam Vitals and I&O: Vital Signs Temp 100.1 F 03/27/16 12:24 Pulse 19 03/27/16 12:24 Resp 101 03/27/16 12:24 BP 118/68 03/27/16 12:24 Pulse Ox 95 03/27/16 12:24 Intake & Output 03/26/16 03/27/16 03/27/16 18:59 06:59 18:59 Intake Total 2230 400 Balance 2230 400 Intake: Intake, IV Amount 2230 200 Multivitamin Inj 10 ml In 1680 Amino Acids 10% 1,289 ml In Dextrose 70% 269 ml In Intralipids 20% 112 ml @ 70 mls/hr IV .Q24H [facility] Rx#:[id number] Pantoprazole 80 mg In 100 100 Sodium Chloride 0.9% 100 ml @ 10 mls/hr IV Q10H [facility] Rx#:[id number] Vancomycin HCl 1.25 gm In 250 Sodium Chloride 0.9% 250 ml @ 165 mls/hr IV DAILY [facility] Rx#:[id number] metroNIDAZOLE 500mg/NS 200 100 100mL 500 mg In Premix Fluid 1 bag @ 100 mls/hr IV Q8H [facility] Rx#:[id number] Other 200 Active Medications: Current Medications Acetaminophen (Tylenol) 650 mg PO Q6HR PRN PRN Reason: PAIN OR TEMP >100 Stop: 05/08/16 21:33 Last Admin: 03/26/16 11:31 Dose: 650 mg Acetaminophen/Codeine Phosphate (Tylenol W/Codeine #3) 1 tab PO Q4HR PRN PRN Reason: PAIN Stop: 05/08/16 21:33 Al Hydrox/Mg Hydrox/Simethicone (Maalox) 30 ml PO Q4HR PRN PRN Reason: Indigestion Stop: 05/08/16 21:33 Albuterol Sulfate (Albuterol 2.5mg/3ml Neb Ud) 2.5 mg IH Q2HR PRN PRN Reason: Shortness of Breath or Wheeze Stop: 05/08/16 21:37 Albuterol Sulfate (Albuterol 2.5mg/3ml Neb Ud) 2.5 mg HHN Q4HRT [facility] Stop: 05/20/16 18:59 Last Admin: 03/27/16 11:14 Dose: 2.5 mg Chlorhexidine Gluconate (Peridex) 15 ml MM 08,1999 [facility] Stop: 05/20/16 19:59 Last Admin: 03/26/16 19:51 Dose: Not Given Donepezil HCl (Aricept) 10 mg PO HS [facility] Stop: 05/09/16 20:59 Last Admin: 03/26/16 20:14 Dose: 10 mg Enoxaparin Sodium (Lovenox) 30 mg SUBQ DAILY [facility] Stop: 05/22/16 08:59 Last Admin: 03/27/16 10:37 Dose: 30 mg Pantoprazole Sodium 80 mg/ (Sodium Chloride) 100 mls @ 10 mls/hr IV Q10H [facility] Stop: 05/08/16 21:44 Last Admin: 03/27/16 11:02 Dose: 10 mls/hr Dextrose/Sodium Chloride (D5-0.45ns) 1,000 mls @ 40 mls/hr IV .Q24H [facility] Stop: 05/18/16 12:59 Last Admin: 03/25/16 13:47 Dose: 40 mls/hr Metronidazole 500 mg/ (Miscellaneous) 100 mls @ 100 mls/hr IV Q8H [facility] Stop: 05/20/16 09:14 Last Admin: 03/27/16 09:45 Dose: 100 mls/hr Norepinephrine Bitartrate 4 mg (/ Dextrose) 254 mls @ 15.24 mls/hr IV TITR PRN ; Protocol; 4 MCG/MIN PRN Reason: BP MAINTENANCE (PER PROTOCOL) Stop: 05/20/16 11:23 Last Titration: 03/21/16 14:45 Dose: 0 mcg/min, 0 mls/hr Sodium Chloride (Nacl 0.9%) 1,000 mls @ 0 mls/hr IV .Q0M [facility] PRN Reason: Wide Open Stop: 05/20/16 11:44 Levofloxacin (Levaquin Pb) 500 mg in 100 mls @ 100 mls/hr IV Q24HR [facility] Stop: 05/24/16 00:59 Last Admin: 03/27/16 01:50 Dose: 100 mls/hr Multivitamins/Minerals 10 ml/Amino Acids/Electrolytes/Dextrose/ Fat Emulsion Intravenous 1,680 mls @ 70 mls/hr IV .Q24H [facility] Stop: 03/27/16 14:59 Last Admin: 03/26/16 15:36 Dose: 70 mls/hr Vancomycin HCl 1.25 gm/ Sodium (Chloride) 250 mls @ 165 mls/hr IV DAILY [facility] Stop: 05/25/16 11:59 Last Infusion: 03/26/16 14:00 Dose: Infused Erythromycin Lactobionate 500 (mg/ Sodium Chloride) 250 mls @ 250 mls/hr IV Q12HR [facility] Stop: 05/26/16 08:59 Last Admin: 03/27/16 11:14 Dose: 250 mls/hr Insulin Aspart (Novolog Insulin Sliding Scale) 0 units SUBQ Q6HR [facility] PRN Reason: Protocol Stop: 05/25/16 17:59 Last Admin: 03/27/16 05:47 Dose: Not Given Lactobacillus Rhamnosus (Culturelle) 1 each PO DAILY [facility] Stop: 05/22/16 08:59 Last Admin: 03/27/16 10:33 Dose: 1 each Meclizine HCl (Antivert) 25 mg PO DAILY PRN PRN Reason: Nausea / Vomiting Stop: 05/08/16 21:37 Last Admin: 03/26/16 11:32 Dose: 25 mg Metoclopramide HCl (Reglan) 10 mg IVP Q8HR [facility] Stop: 05/23/16 12:59 Last Admin: 03/27/16 05:30 Dose: 10 mg Mirtazapine (Remeron) 7.5 mg PO HS [facility] PRN Reason: Protocol Stop: 05/09/16 20:59 Last Admin: 03/26/16 20:13 Dose: 7.5 mg Miscellaneous (Vte Chemical Prophylaxis Screen/ Admission) 1 ea [facility] PRN PRN PRN Reason: PROTOCOL Stop: 05/10/16 17:12 Miscellaneous (Tpn Per Pharmacy) 1 ea MC DAILY [facility] Stop: 05/20/16 14:39 Miscellaneous (Probiotic Screen) 1 ea [facility] PRN PRN PRN Reason: PROTOCOL Stop: 05/21/16 14:39 Miscellaneous (Vancomycin Iv Per Pharmacy) 1 ea [facility] PRN PRN PRN Reason: PROTOCOL Stop: 05/25/16 11:26 Morphine Sulfate (Morphine) 2 mg IV Q3H PRN PRN Reason: Pain (Moderate) Stop: 05/20/16 10:29 Morphine Sulfate (Morphine) 2 mg IVP Q4HR PRN PRN Reason: Pain (Moderate) Stop: 05/20/16 13:00 Last Admin: 03/27/16 06:43 Dose: 2 mg Ondansetron HCl (Zofran) 4 mg IV Q8H PRN PRN Reason: Nausea / Vomiting Stop: 05/08/16 21:37 Last Admin: 03/21/16 20:01 Dose: 4 mg Quetiapine Fumarate (Seroquel) 100 mg PO QPM [facility] PRN Reason: Protocol Stop: 05/09/16 16:59 Last Admin: 03/26/16 17:13 Dose: 100 mg Tamsulosin HCl (Flomax) 0.4 mg PO DAILY [facility] Stop: 05/09/16 08:59 Last Admin: 03/27/16 10:33 Dose: 0.4 mg General: weak, alert HEENT: NC/AT Neck: Supple Lungs: CTAB Cardiovascular: RRR, Normal S1, Normal S2, without murmur Abdomen: soft non-tender, non-distended, positive bowel sound Neurological: no change - Procedures Procedures: Procedures Procedure Code Date APPENDECTOMY ADD-ON 58335 03/10/16 BIOPSY OF BOWEL 03029 03/10/16 BYPASS DESCENDING COLON TO CUTANEOUS, OPEN APPROACH [id number] 03/10/16 COLOSTOMY 47636 03/10/16 EGD BIOPSY SINGLE/MULTIPLE 21756 03/10/16 EXCISION OF ILEUM, OPEN APPROACH [id number] 03/10/16 EXCISION OF LARGE INTESTINE, PERCUTANEOUS APPROACH, DIAGN [id number] 03/10/16 EXCISION OF STOMACH, ENDO, DIAGN [id number] 03/10/16 FREEING OF BOWEL ADHESION 87002 03/10/16 GROUP PSYCHOTHERAPY 43791 06/08/03 INDIVID PSYCHOTHERAP NEC 94.39 06/08/03 OTHER GROUP THERAPY 94.44 06/08/03 RELEASE ILEUM, OPEN APPROACH [id number] 03/10/16 REMOVAL OF SMALL INTESTINE 95965 03/10/16 RESECTION OF APPENDIX, OPEN APPROACH [id number] 03/10/16 Internal Medicine Assmt/Plan - Assessment Assessment: colon mass- adenoca s\p recection colostomy GI BLEED ANEMIA HYPOTENSION-resolved leukocytosis malnutrition - Plan Plan: ngt to suction zofran prn aspiration precautions continue ivabx ltac eval colostomy care cbc/bmp in am
--- NOTE | 2016-03-27 13:15 | Diagnostic Imaging Report ---
CHEST X-RAY: AP view INDICATION: PICC line and NG tube placement COMPARISON: Chest x-ray 03/26/2016 FINDINGS: An NG tube is seen with tip in the distal esophageal region. Right PICC line is seen with tip in SVC. Increased interstitial lung markings are seen with no focal consolidation identified. Faint right lower lung zone infiltrates are noted. No effusions. Old left rib fractures are noted. Distended bowel loops are seen along the left hemiabdomen. IMPRESSION: Faint right lower lung zone infiltrates. Interval NG tube placement with tip along the distal esophagus. Recommend 10 cm advancement for optimal positioning Right PICC line with tip in SVC.
[2016-03-27] MEDS ORDERED: Amino Acids 3% / Electrolytes 1,000 ML IV SCH (17:00)
[2016-03-27] MEDS: D5-0.45NS 1,000 ML IV SCH (17:52)
--- NOTE | 2016-03-27 18:36 | Infectious Disease Prog Note ---
Infectious Disease Subjective - Review of Systems Service Date: 03/27/16 Subjective: Patient has developed fevers and WBC count went higher today. Infectious Disease Objective - Results Result Diagrams: 03/27/16 06:10 03/27/16 06:10 Recent Labs: Laboratory Last Values WBC 28.0 Th/cmm (4.8-10.8) H* 03/27/16 06:10 RBC 4.29 Mil/cmm (3.80-5.80) 03/27/16 06:10 Hgb 11.6 gm/dL (12.6-17.4) L 03/27/16 06:10 Hct 34.9 % (39.0-49.0) L 03/27/16 06:10 MCV 81.3 fl (80-99) 03/27/16 06:10 MCH 27.1 pg (27.0-31.0) 03/27/16 06:10 MCHC Differential 33.3 pg (28.0-36.0) 03/27/16 06:10 RDW 20.7 % (11.5-20.0) H 03/27/16 06:10 Plt Count 397 Th/cmm (150-400) 03/27/16 06:10 MPV 9.0 fl 03/27/16 06:10 Neutrophils % 66.8 % (40.0-80.0) 03/17/16 06:19 Band Neutrophils % 6 % (0-10) 03/27/16 06:10 Lymphocytes % 12.9 % (20.0-50.0) L 03/17/16 06:19 Monocytes % 8.2 % (2.0-10.0) 03/17/16 06:19 Eosinophils % 11.8 % (0.0-5.0) H 03/17/16 06:19 Basophils % 0.3 % (0.0-2.0) 03/17/16 06:19 Neutrophils (Manual) 81 % (40-80) H 03/27/16 06:10 Lymphocytes 4 % (20-50) L 03/27/16 06:10 Monocytes 7 % (2-10) 03/27/16 06:10 Eosinophils 1 % (0-5) 03/24/16 06:45 Basophils 1 % (0-3) 03/12/16 08:00 Metamyelocytes 2 % (0-0) H 03/27/16 06:10 Platelet Estimate ADEQUATE (NORMAL) 03/27/16 06:10 Platelet Morphology NORMAL (NORMAL) 03/27/16 06:10 Polychromasia 1+ 03/24/16 06:45 Anisocytosis 1+ 03/27/16 06:10 Microcytosis 1+ 03/21/16 06:19 RBC Morph Micro Appear ABNORMAL (NORMAL) 03/27/16 06:10 PT 11.4 SECONDS (9.5-11.5) 03/24/16 20:04 INR 1.14 (0.5-1.4) 03/24/16 20:04 PTT (Actin FS) 30.2 SECONDS (26.0-38.0) 03/24/16 20:04 Specimen Source Arterial 03/21/16 16:45 Sample Site Right Radial 03/21/16 16:45 pH 7.37 (7.35-7.45) 03/21/16 16:45 pCO2 40.0 mmHg (35.0-45.0) 03/21/16 16:45 pO2 85.0 mmHg (80.0-100.0) 03/21/16 16:45 HCO3 23.1 mmol/L (20.0-26.0) 03/21/16 16:45 Base Excess -2.0 mmol/L (-3.0-3.0) 03/21/16 16:45 O2 Saturation 96.0 % (92.0-100.0) 03/21/16 16:45 Galo Test YES 03/21/16 16:45 Vent Rate NA 03/21/16 16:45 Inspired O2 40 03/21/16 16:45 Tidal Volume NA 03/21/16 16:45 PEEP NA 03/21/16 16:45 Pressure (ins/psv/peep) NA 03/21/16 16:45 Critical Value E.HERNANDEZ 03/21/16 16:45 Sodium 131 mEq/L (136-145) L 03/27/16 06:10 Potassium 4.5 mEq/L (3.5-5.1) 03/27/16 06:10 Chloride 103 mEq/L (98-107) 03/27/16 06:10 Carbon Dioxide 20.1 mEq/L (21.0-31.0) L 03/27/16 06:10 Anion Gap 12.4 (7.0-16.0) 03/27/16 06:10 BUN 37 mg/dL (7-25) H 03/27/16 06:10 Creatinine 1.5 mg/dL (0.7-1.3) H 03/27/16 06:10 Est GFR ( Amer) 59.5 ml/min (>90) 03/27/16 06:10 Est GFR (Non-Af Amer) 49.2 ml/min 03/27/16 06:10 BUN/Creatinine Ratio 24.7 03/27/16 06:10 Glucose 115 mg/dL (70-105) H 03/27/16 06:10 POC Glucose 125 MG/DL (70 - 105) H 03/27/16 12:01 Hemoglobin A1c % 5.1 % (4.0-6.0) 03/26/16 06:10 Whole Bld Lactic Acid 1.80 mmol/L (0.60-2.00) 03/26/16 06:10 Calcium 9.2 mg/dL (8.6-10.3) 03/27/16 06:10 Phosphorus 3.5 mg/dL (2.5-5.0) 03/27/16 06:10 Magnesium 2.3 mg/dL (1.9-2.7) 03/27/16 06:10 Ferritin 136 ng/mL (30-400) 03/19/16 07:40 Total Bilirubin 0.5 mg/dL (0.3-1.0) 03/22/16 04:50 AST 20 U/L (13-39) 03/22/16 04:50 ALT 10 U/L (7-52) 03/22/16 04:50 Alkaline Phosphatase 79 U/L (34-104) 03/22/16 04:50 Ammonia 41 umol/L (16-53) 03/10/16 04:30 B-Natriuretic Peptide 111.0 pg/mL (5.0-100.0) H 03/22/16 04:50 Total Protein 6.8 gm/dL (6.0-8.3) 03/22/16 04:50 Albumin 3.4 gm/dL (4.2-5.5) L 03/22/16 04:50 Globulin 3.4 gm/dL 03/22/16 04:50 Albumin/Globulin Ratio 1.0 (1.0-1.8) 03/22/16 04:50 Prealbumin 11 mg/dL (10-36) 03/25/16 05:15 Triglycerides 63 mg/dL (<150) 03/25/16 05:15 Cholesterol 109 mg/dL (<200) 03/25/16 05:15 Carcinoembryonic Ag 2.7 ng/mL (0.0-4.7) 03/18/16 06:19 Vitamin B12 389 pg/mL (211-946) 03/10/16 04:30 Folic Acid 13.3 ng/mL (>3.0) 03/10/16 04:30 TSH 2.57 uIU/ml (0.34-5.60) 03/10/16 04:30 Urine Source CATH 03/13/16 16:00 Urine Color YELLOW 03/13/16 16:00 Urine Clarity CLEAR (CLEAR) 03/13/16 16:00 Urine pH 5.5 03/13/16 16:00 Ur Specific [place] 1.010 (1.005-1.030) 03/13/16 16:00 Urine Protein NEGATIVE mg/dL (NEGATIVE) 03/13/16 16:00 Urine Glucose (UA) NEGATIVE mg/dL (NEGATIVE) 03/13/16 16:00 Urine Ketones NEGATIVE mg/dL (NEGATIVE) 03/13/16 16:00 Urine Blood LARGE (NEGATIVE) H 03/13/16 16:00 Urine Nitrate NEGATIVE (NEGATIVE) 03/13/16 16:00 Urine Bilirubin NEGATIVE (NEGATIVE) 03/13/16 16:00 Urine Urobilinogen 1.0 E.U./dL (0.2 - 1.0) 03/13/16 16:00 Ur Leukocyte Esterase TRACE (NEGATIVE) H 03/13/16 16:00 Urine RBC 10-25 /hpf (0-5) H 03/13/16 16:00 Urine WBC 6-10 /hpf (0-5) H 03/13/16 16:00 Ur Epithelial Cells FEW /lpf (FEW) 03/13/16 16:00 Urine Bacteria OCCASIONAL /hpf (NONE SEEN) 03/13/16 16:00 Vancomycin Trough 8.5 ug/mL (10-20) L 03/27/16 10:50 Blood Type B POSITIVE 03/19/16 16:10 Antibody Screen NEGATIVE 03/19/16 16:10 Crossmatch See Detail 03/19/16 16:10 - Physical Exam Vitals and I&O: Vital Signs Temp 100.2 F 03/27/16 16:00 Pulse 101 03/27/16 16:39 Resp 20 03/27/16 16:39 BP 107/62 03/27/16 16:00 Pulse Ox 94 03/27/16 16:39 Intake & Output 03/26/16 03/27/16 03/27/16 18:59 06:59 18:59 Intake Total 3230 400 100 Balance 3230 400 100 Intake: Intake, IV Amount 3230 200 100 D5-0.45NS 1,000 ml @ 40 1000 mls/hr IV .Q24H [facility] Rx#: [id number] Multivitamin Inj 10 ml In 1680 Amino Acids 10% 1,289 ml In Dextrose 70% 269 ml In Intralipids 20% 112 ml @ 70 mls/hr IV .Q24H [facility] Rx#:[id number] Pantoprazole 80 mg In 100 100 Sodium Chloride 0.9% 100 ml @ 10 mls/hr IV Q10H [facility] Rx#:[id number] Vancomycin HCl 1.25 gm In 250 Sodium Chloride 0.9% 250 ml @ 165 mls/hr IV DAILY [facility] Rx#:[id number] metroNIDAZOLE 500mg/NS 200 100 100 100mL 500 mg In Premix Fluid 1 bag @ 100 mls/hr IV Q8H [facility] Rx#:[id number] Other 200 Active Medications: Current Medications Acetaminophen (Tylenol) 650 mg PO Q6HR PRN PRN Reason: PAIN OR TEMP >100 Stop: 05/08/16 21:33 Last Admin: 03/26/16 11:31 Dose: 650 mg Acetaminophen/Codeine Phosphate (Tylenol W/Codeine #3) 1 tab PO Q4HR PRN PRN Reason: PAIN Stop: 05/08/16 21:33 Al Hydrox/Mg Hydrox/Simethicone (Maalox) 30 ml PO Q4HR PRN PRN Reason: Indigestion Stop: 05/08/16 21:33 Albuterol Sulfate (Albuterol 2.5mg/3ml Neb Ud) 2.5 mg IH Q2HR PRN PRN Reason: Shortness of Breath or Wheeze Stop: 05/08/16 21:37 Albuterol Sulfate (Albuterol 2.5mg/3ml Neb Ud) 2.5 mg HHN Q4HRT [facility] Stop: 05/20/16 18:59 Last Admin: 03/27/16 16:32 Dose: 2.5 mg Chlorhexidine Gluconate (Peridex) 15 ml MM 0800,2000 [facility] Stop: 05/20/16 19:59 Last Admin: 03/27/16 09:00 Dose: Not Given Donepezil HCl (Aricept) 10 mg PO HS [facility] Stop: 05/09/16 20:59 Last Admin: 03/26/16 20:14 Dose: 10 mg Enoxaparin Sodium (Lovenox) 30 mg SUBQ DAILY [facility] Stop: 05/22/16 08:59 Last Admin: 03/27/16 10:37 Dose: 30 mg Pantoprazole Sodium 80 mg/ (Sodium Chloride) 100 mls @ 10 mls/hr IV Q10H [facility] Stop: 05/08/16 21:44 Last Admin: 03/27/16 11:02 Dose: 10 mls/hr Dextrose/Sodium Chloride (D5-0.45ns) 1,000 mls @ 40 mls/hr IV .Q24H [facility] Stop: 05/18/16 12:59 Last Admin: 03/27/16 17:52 Dose: 40 mls/hr Metronidazole 500 mg/ (Miscellaneous) 100 mls @ 100 mls/hr IV Q8H [facility] Stop: 05/20/16 09:14 Last Admin: 03/27/16 17:52 Dose: 100 mls/hr Norepinephrine Bitartrate 4 mg (/ Dextrose) 254 mls @ 15.24 mls/hr IV TITR PRN ; Protocol; 4 MCG/MIN PRN Reason: BP MAINTENANCE (PER PROTOCOL) Stop: 05/20/16 11:23 Last Titration: 03/21/16 14:45 Dose: 0 mcg/min, 0 mls/hr Levofloxacin (Levaquin Pb) 500 mg in 100 mls @ 100 mls/hr IV Q24HR [facility] Stop: 05/24/16 00:59 Last Admin: 03/27/16 01:50 Dose: 100 mls/hr Vancomycin HCl 1.25 gm/ Sodium (Chloride) 250 mls @ 165 mls/hr IV DAILY [facility] Stop: 05/25/16 11:59 Last Admin: 03/27/16 12:48 Dose: 165 mls/hr Erythromycin Lactobionate 500 (mg/ Sodium Chloride) 250 mls @ 250 mls/hr IV Q12HR [facility] Stop: 05/26/16 08:59 Last Admin: 03/27/16 11:14 Dose: 250 mls/hr Amino Acids/Electrolytes (Procalamine) 1,000 mls @ 42 mls/hr IV .[id number] [facility] Stop: 05/26/16 16:59 Last Admin: 03/27/16 18:23 Dose: 42 mls/hr Insulin Aspart (Novolog Insulin Sliding Scale) 0 units SUBQ Q6HR AMAURI PRN Reason: Protocol Stop: 05/25/16 17:59 Last Admin: 03/27/16 18:10 Dose: Not Given Lactobacillus Rhamnosus (Culturelle) 1 each PO DAILY [facility] Stop: 05/22/16 08:59 Last Admin: 03/27/16 10:33 Dose: 1 each Meclizine HCl (Antivert) 25 mg PO DAILY PRN PRN Reason: Nausea / Vomiting Stop: 05/08/16 21:37 Last Admin: 03/26/16 11:32 Dose: 25 mg Metoclopramide HCl (Reglan) 10 mg IVP Q8HR [facility] Stop: 05/23/16 12:59 Last Admin: 03/27/16 12:43 Dose: 10 mg Mirtazapine (Remeron) 7.5 mg PO HS [facility] PRN Reason: Protocol Stop: 05/09/16 20:59 Last Admin: 03/26/16 20:13 Dose: 7.5 mg Miscellaneous (Vte Chemical Prophylaxis Screen/ Admission) 1 ea [facility] PRN PRN PRN Reason: PROTOCOL Stop: 05/10/16 17:12 Miscellaneous (Tpn Per Pharmacy) 1 ea [facility] DAILY [facility] Stop: 05/20/16 14:39 Miscellaneous (Probiotic Screen) 1 ea [facility] PRN PRN PRN Reason: PROTOCOL Stop: 05/21/16 14:39 Miscellaneous (Vancomycin Iv Per Pharmacy) 1 ea [facility] PRN PRN PRN Reason: PROTOCOL Stop: 05/25/16 11:26 Morphine Sulfate (Morphine) 2 mg IV Q3H PRN PRN Reason: Pain (Moderate) Stop: 05/20/16 10:29 Morphine Sulfate (Morphine) 2 mg IVP Q4HR PRN PRN Reason: Pain (Moderate) Stop: 05/20/16 13:00 Last Admin: 03/27/16 06:43 Dose: 2 mg Ondansetron HCl (Zofran) 4 mg IV Q8H PRN PRN Reason: Nausea / Vomiting Stop: 05/08/16 21:37 Last Admin: 03/21/16 20:01 Dose: 4 mg Quetiapine Fumarate (Seroquel) 100 mg PO QPM AMAURI PRN Reason: Protocol Stop: 05/09/16 16:59 Last Admin: 03/27/16 16:59 Dose: 100 mg Tamsulosin HCl (Flomax) 0.4 mg PO DAILY [facility] Stop: 05/09/16 08:59 Last Admin: 03/27/16 10:33 Dose: 0.4 mg General: no acute distress, well developed, well nourished HEENT: atraumatic, normocephalic, PERRLA, EOMI Neck: supple, no thyromegaly, no lymphadenopathy Cardiovascular: S1S2, regular Lungs: clear to auscultation bilaterally, clear to percussion Abdomen: soft, tender, distended Extremities: no cyanosis, no clubbing, no edema Neurological: awake, alert, oriented, CN 2-12 intact Skin: intact - Procedures Procedures: Procedures Procedure Code Date APPENDECTOMY ADD-ON 63953 03/10/16 BIOPSY OF BOWEL 14865 03/10/16 BYPASS DESCENDING COLON TO CUTANEOUS, OPEN APPROACH [id number] 03/10/16 COLOSTOMY 46822 03/10/16 EGD BIOPSY SINGLE/MULTIPLE 92430 03/10/16 EXCISION OF ILEUM, OPEN APPROACH [id number] 03/10/16 EXCISION OF LARGE INTESTINE, PERCUTANEOUS APPROACH, DIAGN [id number] 03/10/16 EXCISION OF STOMACH, ENDO, DIAGN [id number] 03/10/16 FREEING OF BOWEL ADHESION 43519 03/10/16 GROUP PSYCHOTHERAPY 88409 06/08/03 INDIVID PSYCHOTHERAP NEC 94.39 06/08/03 OTHER GROUP THERAPY 94.44 06/08/03 RELEASE ILEUM, OPEN APPROACH [id number] 03/10/16 REMOVAL OF SMALL INTESTINE 31821 03/10/16 RESECTION OF APPENDIX, OPEN APPROACH [id number] 03/10/16 Infectious Disease Assmt/Plan - Problem List Patient Problems: All Active Problems BLOOD CLOT IN STOOL (Acute) - Assessment Assessment: Impression: 1. Sepsis, fever and leukocytosis peritinitis. SBO, Bowel perforation. 2. Peritonitis. 3. GI Bleed 2/2 #2. 4. Dementia. 5. History of hypertension. 6. s/p colectomy and colostomy. 7. Intraabdominal mass? colon CA. associated colitis. 8. Suspect ileus. RECOMMENDATIONS: Continue flagyl and vanco IV. Change levaquin to meropenem. Sepsis w/u. Surgical eval. Upgrade to tele or ICU.
[2016-03-27] MEDS ORDERED: Meropenem 1 GM in Sodium Chloride 0.9% 100 ML IV SCH (18:45)
[2016-03-27] MEDS ORDERED: ERYTHROMYCIN LACTOBIONATE IV ONE (22:51)
[2016-03-28] MEDS: INSULIN ASPART SLIDING SCALE 100 UNITS/ML UNIT SUBQ SCH ×4 (00:50→17:26)
[2016-03-28] MEDS: Levofloxacin 500mg/100mL 500 MG/100 ML BAG IV SCH (02:04)
[2016-03-28] MEDS: metroNIDAZOLE 500mg/NS 100mL 500 MG in Premix Fluid 1 BAG IV SCH ×3 (02:47→16:29)
[2016-03-28 05:35] LABS: MEAN CELL VOLUME 80.1 fl (80-99); MEAN CORPUSCULAR HEMOGLOBIN 27.9 pg (27.0-31.0); MEAN CORPUSCULAR HGB CONC 34.9 pg (28.0-36.0); MEAN PLATELET VOLUME 8.8 fl; PLATELET COUNT 329 Th/cmm (150-400); RED BLOOD COUNT 3.35 Mil/cmm (3.80-5.80); RED CELL DISTRIBUTION WIDTH 20.7 % (11.5-20.0)
[2016-03-28 05:47] LABS: ALB/GLOB RATIO 0.7 (1.0-1.8); ALKALINE PHOSPHATASE 54 U/L (34-104); ANION GAP 9.4 (7.0-16.0); BILIRUBIN,TOTAL 0.7 mg/dL (0.3-1.0); BUN - UREA NITROGEN 41 mg/dL (7-25); BUN/CREATININE RATIO 29.3; CALCIUM SERUM 8.6 mg/dL (8.6-10.3); CARBON DIOXIDE 19.7 mEq/L (21.0-31.0); CHLORIDE 108 mEq/L (98-107); CREATININE - SERUM 1.4 mg/dL (0.7-1.3); GLUCOSE 115 mg/dL (70-105); POTASSIUM SERUM 4.1 mEq/L (3.5-5.1); SGOT 20 U/L (13-39); SGPT/ALT 6 U/L (7-52); SODIUM SERUM 133 mEq/L (136-145)
[2016-03-28] MEDS: Metoclopramide 5 mg/mL 2mL Vial IVP SCH ×3 (06:01→20:48)
[2016-03-28 06:15] LABS: HEMATOCRIT 26.8 % (39.0-49.0); HEMOGLOBIN 9.4 gm/dL (12.6-17.4)
[2016-03-28] MEDS: Albuterol Nebulizer 2.5mg/3mL HHN SCH ×5 (07:33→22:57)
[2016-03-28] MEDS: Enoxaparin 30 mg/0.3 mL 0.3mL Syr SUBQ SCH (08:18)
[2016-03-28] MEDS: SODIUM CHLORIDE 0.9% IV SCH ×2 (09:06→20:47)
[2016-03-28] MEDS: ERYTHROMYCIN LACT IV SCH ×2 (09:06→20:47)
[2016-03-28] MEDS: Chlorhexidine Gluconate 0.12% 15mL Mouthwash MM SCH (09:51)
[2016-03-28] MEDS: Lactobacillus Rhamnosus 10 Billion CFU Capsule PO SCH (09:52)
[2016-03-28] MEDS: Pantoprazole 80 MG in Sodium Chloride 0.9% 100 ML IV SCH ×2 (09:59→20:02)
[2016-03-28 10:01] LABS: BAND NEUTROPHILE 3 % (0-10); EOSINOPHIL 2 % (0-5); METAMYELOCYTE 2 % (0-0); NEUTROPHILS 74 % (40-80); TOTAL CELLS COUNTED 100
[2016-03-28 10:02] LABS: ANISOCYTOSIS 1+; PLATELET ESTIMATE ADEQUATE (NORMAL); PLATELET MORPHOLOGY NORMAL (NORMAL)
--- NOTE | 2016-03-28 13:21 | General Progress Note ---
Subjective - Review of Systems Service Date: 03/28/16 Subjective: NOW IN ICU DUE TO TACHYCARDIA. NGT WITH LARGE VOLUME OUTPT. COLOSTOMY WITH SOFT BROWN STOOL. Objective - Results Result Diagrams: 03/28/16 04:48 03/28/16 04:48 Recent Labs: Laboratory Last Values WBC 19.0 Th/cmm (4.8-10.8) H D 03/28/16 04:48 RBC 3.35 Mil/cmm (3.80-5.80) L 03/28/16 04:48 Hgb 9.4 gm/dL (12.6-17.4) L D 03/28/16 04:48 Hct 26.8 % (39.0-49.0) L D 03/28/16 04:48 MCV 80.1 fl (80-99) 03/28/16 04:48 MCH 27.9 pg (27.0-31.0) 03/28/16 04:48 MCHC Differential 34.9 pg (28.0-36.0) 03/28/16 04:48 RDW 20.7 % (11.5-20.0) H 03/28/16 04:48 Plt Count 329 Th/cmm (150-400) 03/28/16 04:48 MPV 8.8 fl 03/28/16 04:48 Neutrophils % 66.8 % (40.0-80.0) 03/17/16 06:19 Band Neutrophils % 3 % (0-10) 03/28/16 04:48 Lymphocytes % 12.9 % (20.0-50.0) L 03/17/16 06:19 Monocytes % 8.2 % (2.0-10.0) 03/17/16 06:19 Eosinophils % 11.8 % (0.0-5.0) H 03/17/16 06:19 Basophils % 0.3 % (0.0-2.0) 03/17/16 06:19 Neutrophils (Manual) 74 % (40-80) 03/28/16 04:48 Lymphocytes 7 % (20-50) L 03/28/16 04:48 Monocytes 12 % (2-10) H 03/28/16 04:48 Eosinophils 2 % (0-5) 03/28/16 04:48 Basophils 1 % (0-3) 03/12/16 08:00 Metamyelocytes 2 % (0-0) H 03/28/16 04:48 Platelet Estimate ADEQUATE (NORMAL) 03/28/16 04:48 Platelet Morphology NORMAL (NORMAL) 03/28/16 04:48 Polychromasia 1+ 03/24/16 06:45 Anisocytosis 1+ 03/28/16 04:48 Microcytosis 1+ 03/21/16 06:19 RBC Morph Micro Appear ABNORMAL (NORMAL) 03/28/16 04:48 PT 11.4 SECONDS (9.5-11.5) 03/24/16 20:04 INR 1.14 (0.5-1.4) 03/24/16 20:04 PTT (Actin FS) 30.2 SECONDS (26.0-38.0) 03/24/16 20:04 Specimen Source Arterial 03/21/16 16:45 Sample Site Right Radial 03/21/16 16:45 pH 7.37 (7.35-7.45) 03/21/16 16:45 pCO2 40.0 mmHg (35.0-45.0) 03/21/16 16:45 pO2 85.0 mmHg (80.0-100.0) 03/21/16 16:45 HCO3 23.1 mmol/L (20.0-26.0) 03/21/16 16:45 Base Excess -2.0 mmol/L (-3.0-3.0) 03/21/16 16:45 O2 Saturation 96.0 % (92.0-100.0) 03/21/16 16:45 Galo Test YES 03/21/16 16:45 Vent Rate NA 03/21/16 16:45 Inspired O2 40 03/21/16 16:45 Tidal Volume NA 03/21/16 16:45 PEEP NA 03/21/16 16:45 Pressure (ins/psv/peep) NA 03/21/16 16:45 Critical Value E.HERNANDEZ 03/21/16 16:45 Sodium 133 mEq/L (136-145) L 03/28/16 04:48 Potassium 4.1 mEq/L (3.5-5.1) 03/28/16 04:48 Chloride 108 mEq/L (98-107) H 03/28/16 04:48 Carbon Dioxide 19.7 mEq/L (21.0-31.0) L 03/28/16 04:48 Anion Gap 9.4 (7.0-16.0) 03/28/16 04:48 BUN 41 mg/dL (7-25) H 03/28/16 04:48 Creatinine 1.4 mg/dL (0.7-1.3) H 03/28/16 04:48 Est GFR ( Amer) > 60.0 ml/min (>90) 03/28/16 04:48 Est GFR (Non-Af Amer) 53.3 ml/min 03/28/16 04:48 BUN/Creatinine Ratio 29.3 03/28/16 04:48 Glucose 115 mg/dL (70-105) H 03/28/16 04:48 POC Glucose 127 MG/DL (70 - 105) H 03/28/16 06:21 Hemoglobin A1c % 5.1 % (4.0-6.0) 03/26/16 06:10 Whole Bld Lactic Acid 1.80 mmol/L (0.60-2.00) 03/26/16 06:10 Calcium 8.6 mg/dL (8.6-10.3) 03/28/16 04:48 Phosphorus 3.7 mg/dL (2.5-5.0) 03/28/16 04:48 Magnesium 2.3 mg/dL (1.9-2.7) 03/28/16 04:48 Ferritin 136 ng/mL (30-400) 03/19/16 07:40 Total Bilirubin 0.7 mg/dL (0.3-1.0) 03/28/16 04:48 AST 20 U/L (13-39) 03/28/16 04:48 ALT 6 U/L (7-52) L 03/28/16 04:48 Alkaline Phosphatase 54 U/L (34-104) 03/28/16 04:48 Ammonia 41 umol/L (16-53) 03/10/16 04:30 B-Natriuretic Peptide 111.0 pg/mL (5.0-100.0) H 03/22/16 04:50 Total Protein 6.3 gm/dL (6.0-8.3) 03/28/16 04:48 Albumin 2.6 gm/dL (4.2-5.5) L 03/28/16 04:48 Globulin 3.7 gm/dL 03/28/16 04:48 Albumin/Globulin Ratio 0.7 (1.0-1.8) L 03/28/16 04:48 Prealbumin 11 mg/dL (10-36) 03/25/16 05:15 Triglycerides 63 mg/dL (<150) 03/25/16 05:15 Cholesterol 109 mg/dL (<200) 03/25/16 05:15 Carcinoembryonic Ag 2.7 ng/mL (0.0-4.7) 03/18/16 06:19 Vitamin B12 389 pg/mL (211-946) 03/10/16 04:30 Folic Acid 13.3 ng/mL (>3.0) 03/10/16 04:30 TSH 2.57 uIU/ml (0.34-5.60) 03/10/16 04:30 Urine Source CATH 03/13/16 16:00 Urine Color YELLOW 03/13/16 16:00 Urine Clarity CLEAR (CLEAR) 03/13/16 16:00 Urine pH 5.5 03/13/16 16:00 Ur Specific [place] 1.010 (1.005-1.030) 03/13/16 16:00 Urine Protein NEGATIVE mg/dL (NEGATIVE) 03/13/16 16:00 Urine Glucose (UA) NEGATIVE mg/dL (NEGATIVE) 03/13/16 16:00 Urine Ketones NEGATIVE mg/dL (NEGATIVE) 03/13/16 16:00 Urine Blood LARGE (NEGATIVE) H 03/13/16 16:00 Urine Nitrate NEGATIVE (NEGATIVE) 03/13/16 16:00 Urine Bilirubin NEGATIVE (NEGATIVE) 03/13/16 16:00 Urine Urobilinogen 1.0 E.U./dL (0.2 - 1.0) 03/13/16 16:00 Ur Leukocyte Esterase TRACE (NEGATIVE) H 03/13/16 16:00 Urine RBC 10-25 /hpf (0-5) H 03/13/16 16:00 Urine WBC 6-10 /hpf (0-5) H 03/13/16 16:00 Ur Epithelial Cells FEW /lpf (FEW) 03/13/16 16:00 Urine Bacteria OCCASIONAL /hpf (NONE SEEN) 03/13/16 16:00 Vancomycin Trough 13.5 ug/mL (10-20) 03/28/16 08:30 Blood Type B POSITIVE 03/19/16 16:10 Antibody Screen NEGATIVE 03/19/16 16:10 Crossmatch See Detail 03/19/16 16:10 - Physical Exam Vitals and I&O: Vital Signs Temp 99.3 F 03/28/16 11:55 Pulse 109 03/28/16 12:07 Resp 22 03/28/16 12:07 BP 102/53 03/28/16 11:55 Pulse Ox 98 03/28/16 12:07 Intake & Output 03/27/16 03/28/16 03/28/16 18:59 06:59 18:59 Intake Total 700 800 100 Output Total 150 Balance 700 650 100 Intake: Intake, IV Amount 700 550 100 Erythromycin Lact 500 mg 250 250 In Sodium Chloride 0.9% 250 ml @ 250 mls/hr IV Q12HR [facility] Rx#:[id number] Levofloxacin 500mg/100mL 100 500 mg In 100 ml @ 100 mls/hr IV Q24HR [facility] Rx#: [id number] Pantoprazole 80 mg In 100 100 Sodium Chloride 0.9% 100 ml @ 10 mls/hr IV Q10H [facility] Rx#:[id number] Vancomycin HCl 1.25 gm In 250 Sodium Chloride 0.9% 250 ml @ 165 mls/hr IV DAILY [facility] Rx#:[id number] metroNIDAZOLE 500mg/NS 200 100 100mL 500 mg In Premix Fluid 1 bag @ 100 mls/hr IV Q8H [facility] Rx#:[id number] Oral 0 TPN/PPN 250 Output: Gastric Drainage 0 Drainage 50 Left Lower Abdomen 50 Urine 100 Other: Stool Characteristics Soft Brown Active Medications: Current Medications Acetaminophen (Tylenol) 650 mg PO Q6HR PRN PRN Reason: PAIN OR TEMP >100 Stop: 05/08/16 21:33 Last Admin: 03/26/16 11:31 Dose: 650 mg Acetaminophen/Codeine Phosphate (Tylenol W/Codeine #3) 1 tab PO Q4HR PRN PRN Reason: PAIN Stop: 05/08/16 21:33 Al Hydrox/Mg Hydrox/Simethicone (Maalox) 30 ml PO Q4HR PRN PRN Reason: Indigestion Stop: 05/08/16 21:33 Albuterol Sulfate (Albuterol 2.5mg/3ml Neb Ud) 2.5 mg IH Q2HR PRN PRN Reason: Shortness of Breath or Wheeze Stop: 05/08/16 21:37 Albuterol Sulfate (Albuterol 2.5mg/3ml Neb Ud) 2.5 mg HHN Q4HRT [facility] Stop: 05/20/16 18:59 Last Admin: 03/28/16 12:04 Dose: 2.5 mg Chlorhexidine Gluconate (Peridex) 15 ml MM 0800,2000 [facility] Stop: 05/20/16 19:59 Last Admin: 03/28/16 09:51 Dose: Not Given Donepezil HCl (Aricept) 10 mg PO HS [facility] Stop: 05/09/16 20:59 Last Admin: 03/27/16 23:08 Dose: 10 mg Enoxaparin Sodium (Lovenox) 30 mg SUBQ DAILY [facility] Stop: 05/22/16 08:59 Last Admin: 03/28/16 08:18 Dose: 30 mg Pantoprazole Sodium 80 mg/ (Sodium Chloride) 100 mls @ 10 mls/hr IV Q10H [facility] Stop: 05/08/16 21:44 Last Admin: 03/28/16 09:59 Dose: 10 mls/hr Dextrose/Sodium Chloride (D5-0.45ns) 1,000 mls @ 40 mls/hr IV .Q24H [facility] Stop: 05/18/16 12:59 Last Admin: 03/27/16 17:52 Dose: 40 mls/hr Metronidazole 500 mg/ (Miscellaneous) 100 mls @ 100 mls/hr IV Q8H [facility] Stop: 05/20/16 09:14 Last Admin: 03/28/16 08:15 Dose: 100 mls/hr Norepinephrine Bitartrate 4 mg (/ Dextrose) 254 mls @ 15.24 mls/hr IV TITR PRN ; Protocol; 4 MCG/MIN PRN Reason: BP MAINTENANCE (PER PROTOCOL) Stop: 05/20/16 11:23 Last Titration: 03/21/16 14:45 Dose: 0 mcg/min, 0 mls/hr Levofloxacin (Levaquin Pb) 500 mg in 100 mls @ 100 mls/hr IV Q24HR [facility] Stop: 05/24/16 00:59 Last Infusion: 03/28/16 03:04 Dose: Infused Vancomycin HCl 1.25 gm/ Sodium (Chloride) 250 mls @ 165 mls/hr IV DAILY [facility] Stop: 05/25/16 11:59 Last Admin: 03/28/16 09:57 Dose: 165 mls/hr Erythromycin Lactobionate 500 (mg/ Sodium Chloride) 250 mls @ 250 mls/hr IV Q12HR [facility] Stop: 05/26/16 08:59 Last Admin: 03/28/16 09:06 Dose: 250 mls/hr Amino Acids/ Fat Emulsion (Intravenous) 1,500 mls @ 40 mls/hr IV .Q24H [facility] Stop: 05/27/16 15:59 Insulin Aspart (Novolog Insulin Sliding Scale) 0 units SUBQ Q6HR [facility] PRN Reason: Protocol Stop: 05/25/16 17:59 Last Admin: 03/28/16 11:13 Dose: Not Given Lactobacillus Rhamnosus (Culturelle) 1 each PO DAILY [facility] Stop: 05/22/16 08:59 Last Admin: 03/28/16 09:52 Dose: Not Given Meclizine HCl (Antivert) 25 mg PO DAILY PRN PRN Reason: Nausea / Vomiting Stop: 05/08/16 21:37 Last Admin: 03/26/16 11:32 Dose: 25 mg Metoclopramide HCl (Reglan) 10 mg IVP Q8HR [facility] Stop: 05/23/16 12:59 Last Admin: 03/28/16 12:28 Dose: 10 mg Mirtazapine (Remeron) 7.5 mg PO HS [facility] PRN Reason: Protocol Stop: 05/09/16 20:59 Last Admin: 03/27/16 23:08 Dose: 7.5 mg Miscellaneous (Vte Chemical Prophylaxis Screen/ Admission) 1 ea MC PRN PRN PRN Reason: PROTOCOL Stop: 05/10/16 17:12 Miscellaneous (Tpn Per Pharmacy) 1 ea MC DAILY [facility] Stop: 05/20/16 14:39 Miscellaneous (Probiotic Screen) 1 ea MC PRN PRN PRN Reason: PROTOCOL Stop: 05/21/16 14:39 Miscellaneous (Vancomycin Iv Per Pharmacy) 1 ea MC PRN PRN PRN Reason: PROTOCOL Stop: 05/25/16 11:26 Morphine Sulfate (Morphine) 2 mg IV Q3H PRN PRN Reason: Pain (Moderate) Stop: 03/27/17 10:29 Morphine Sulfate (Morphine) 2 mg IVP Q4HR PRN PRN Reason: Pain (Moderate) Stop: 05/20/16 13:00 Last Admin: 03/27/16 06:43 Dose: 2 mg Ondansetron HCl (Zofran) 4 mg IV Q8H PRN PRN Reason: Nausea / Vomiting Stop: 05/08/16 21:37 Last Admin: 03/21/16 20:01 Dose: 4 mg Quetiapine Fumarate (Seroquel) 100 mg PO QPM [facility] PRN Reason: Protocol Stop: 05/09/16 16:59 Last Admin: 03/27/16 16:59 Dose: 100 mg Tamsulosin HCl (Flomax) 0.4 mg PO DAILY [facility] Stop: 05/09/16 08:59 Last Admin: 03/28/16 09:52 Dose: Not Given General: No acute distress Neck: Supple Lungs: Clear to auscultation Abdomen: Bowel sounds, Soft, Other (LLQ COLOSTOMY) - Procedures Procedures: Procedures Procedure Code Date APPENDECTOMY ADD-ON 43808 03/10/16 BIOPSY OF BOWEL 67829 03/10/16 BYPASS DESCENDING COLON TO CUTANEOUS, OPEN APPROACH [id number] 03/10/16 COLOSTOMY 97397 03/10/16 EGD BIOPSY SINGLE/MULTIPLE 98695 03/10/16 EXCISION OF ILEUM, OPEN APPROACH [id number] 03/10/16 EXCISION OF LARGE INTESTINE, PERCUTANEOUS APPROACH, DIAGN [id number] 03/10/16 EXCISION OF STOMACH, ENDO, DIAGN [id number] 03/10/16 FREEING OF BOWEL ADHESION 99806 03/10/16 GROUP PSYCHOTHERAPY 43156 06/08/03 INDIVID PSYCHOTHERAP NEC 94.39 06/08/03 OTHER GROUP THERAPY 94.44 06/08/03 RELEASE ILEUM, OPEN APPROACH [id number] 03/10/16 REMOVAL OF SMALL INTESTINE 21095 03/10/16 RESECTION OF APPENDIX, OPEN APPROACH [id number] 03/10/16 Assessment/Plan - Problem List Patient Problems: All Active Problems BLOOD CLOT IN STOOL (Acute) - Assessment Assessment: 1. 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 2. POST OP ILEUS. 3. ANEMIA. 4. GASTRITIS PER EGD. - Plan Plan: 1. POST OP CARE. 2. REGLAN AND ERYTHROMYCIN. 3. COLOSTOMY CARE. 4. TPN TILL ILEUS RESOLVES. 5. NGT TO LIWS. 6. MONITOR LABS.
--- NOTE | 2016-03-28 13:40 | Internal Medicine Prog Note ---
Internal Medicine Subjective - Subjective Patient seen and examined:: with staff, chart reviewed Patient is:: awake, verbal, interactive Patient Complaints of:: congestion, other (ngt) Per staff patient is:: confused Internal Medicine Objective - Results Result Diagrams: 03/28/16 04:48 03/28/16 04:48 Recent Labs: Laboratory Last Values WBC 19.0 Th/cmm (4.8-10.8) H D 03/28/16 04:48 RBC 3.35 Mil/cmm (3.80-5.80) L 03/28/16 04:48 Hgb 9.4 gm/dL (12.6-17.4) L D 03/28/16 04:48 Hct 26.8 % (39.0-49.0) L D 03/28/16 04:48 MCV 80.1 fl (80-99) 03/28/16 04:48 MCH 27.9 pg (27.0-31.0) 03/28/16 04:48 MCHC Differential 34.9 pg (28.0-36.0) 03/28/16 04:48 RDW 20.7 % (11.5-20.0) H 03/28/16 04:48 Plt Count 329 Th/cmm (150-400) 03/28/16 04:48 MPV 8.8 fl 03/28/16 04:48 Neutrophils % 66.8 % (40.0-80.0) 03/17/16 06:19 Band Neutrophils % 3 % (0-10) 03/28/16 04:48 Lymphocytes % 12.9 % (20.0-50.0) L 03/17/16 06:19 Monocytes % 8.2 % (2.0-10.0) 03/17/16 06:19 Eosinophils % 11.8 % (0.0-5.0) H 03/17/16 06:19 Basophils % 0.3 % (0.0-2.0) 03/17/16 06:19 Neutrophils (Manual) 74 % (40-80) 03/28/16 04:48 Lymphocytes 7 % (20-50) L 03/28/16 04:48 Monocytes 12 % (2-10) H 03/28/16 04:48 Eosinophils 2 % (0-5) 03/28/16 04:48 Basophils 1 % (0-3) 03/12/16 08:00 Metamyelocytes 2 % (0-0) H 03/28/16 04:48 Platelet Estimate ADEQUATE (NORMAL) 03/28/16 04:48 Platelet Morphology NORMAL (NORMAL) 03/28/16 04:48 Polychromasia 1+ 03/24/16 06:45 Anisocytosis 1+ 03/28/16 04:48 Microcytosis 1+ 03/21/16 06:19 RBC Morph Micro Appear ABNORMAL (NORMAL) 03/28/16 04:48 PT 11.4 SECONDS (9.5-11.5) 03/24/16 20:04 INR 1.14 (0.5-1.4) 03/24/16 20:04 PTT (Actin FS) 30.2 SECONDS (26.0-38.0) 03/24/16 20:04 Specimen Source Arterial 03/21/16 16:45 Sample Site Right Radial 03/21/16 16:45 pH 7.37 (7.35-7.45) 03/21/16 16:45 pCO2 40.0 mmHg (35.0-45.0) 03/21/16 16:45 pO2 85.0 mmHg (80.0-100.0) 03/21/16 16:45 HCO3 23.1 mmol/L (20.0-26.0) 03/21/16 16:45 Base Excess -2.0 mmol/L (-3.0-3.0) 03/21/16 16:45 O2 Saturation 96.0 % (92.0-100.0) 03/21/16 16:45 Galo Test YES 03/21/16 16:45 Vent Rate NA 03/21/16 16:45 Inspired O2 40 03/21/16 16:45 Tidal Volume NA 03/21/16 16:45 PEEP NA 03/21/16 16:45 Pressure (ins/psv/peep) NA 03/21/16 16:45 Critical Value E.HERNANDEZ 03/21/16 16:45 Sodium 133 mEq/L (136-145) L 03/28/16 04:48 Potassium 4.1 mEq/L (3.5-5.1) 03/28/16 04:48 Chloride 108 mEq/L (98-107) H 03/28/16 04:48 Carbon Dioxide 19.7 mEq/L (21.0-31.0) L 03/28/16 04:48 Anion Gap 9.4 (7.0-16.0) 03/28/16 04:48 BUN 41 mg/dL (7-25) H 03/28/16 04:48 Creatinine 1.4 mg/dL (0.7-1.3) H 03/28/16 04:48 Est GFR ( Amer) > 60.0 ml/min (>90) 03/28/16 04:48 Est GFR (Non-Af Amer) 53.3 ml/min 03/28/16 04:48 BUN/Creatinine Ratio 29.3 03/28/16 04:48 Glucose 115 mg/dL (70-105) H 03/28/16 04:48 POC Glucose 127 MG/DL (70 - 105) H 03/28/16 06:21 Hemoglobin A1c % 5.1 % (4.0-6.0) 03/26/16 06:10 Whole Bld Lactic Acid 1.80 mmol/L (0.60-2.00) 03/26/16 06:10 Calcium 8.6 mg/dL (8.6-10.3) 03/28/16 04:48 Phosphorus 3.7 mg/dL (2.5-5.0) 03/28/16 04:48 Magnesium 2.1 mg/dL (1.9-2.7) 03/28/16 08:30 Ferritin 136 ng/mL (30-400) 03/19/16 07:40 Total Bilirubin 0.7 mg/dL (0.3-1.0) 03/28/16 04:48 AST 20 U/L (13-39) 03/28/16 04:48 ALT 6 U/L (7-52) L 03/28/16 04:48 Alkaline Phosphatase 54 U/L (34-104) 03/28/16 04:48 Ammonia 41 umol/L (16-53) 03/10/16 04:30 B-Natriuretic Peptide 111.0 pg/mL (5.0-100.0) H 03/22/16 04:50 Total Protein 6.3 gm/dL (6.0-8.3) 03/28/16 04:48 Albumin 2.6 gm/dL (4.2-5.5) L 03/28/16 04:48 Globulin 3.7 gm/dL 03/28/16 04:48 Albumin/Globulin Ratio 0.7 (1.0-1.8) L 03/28/16 04:48 Prealbumin 11 mg/dL (10-36) 03/25/16 05:15 Triglycerides 63 mg/dL (<150) 03/25/16 05:15 Cholesterol 109 mg/dL (<200) 03/25/16 05:15 Carcinoembryonic Ag 2.7 ng/mL (0.0-4.7) 03/18/16 06:19 Vitamin B12 389 pg/mL (211-946) 03/10/16 04:30 Folic Acid 13.3 ng/mL (>3.0) 03/10/16 04:30 TSH 2.57 uIU/ml (0.34-5.60) 03/10/16 04:30 Urine Source CATH 03/13/16 16:00 Urine Color YELLOW 03/13/16 16:00 Urine Clarity CLEAR (CLEAR) 03/13/16 16:00 Urine pH 5.5 03/13/16 16:00 Ur Specific [place] 1.010 (1.005-1.030) 03/13/16 16:00 Urine Protein NEGATIVE mg/dL (NEGATIVE) 03/13/16 16:00 Urine Glucose (UA) NEGATIVE mg/dL (NEGATIVE) 03/13/16 16:00 Urine Ketones NEGATIVE mg/dL (NEGATIVE) 03/13/16 16:00 Urine Blood LARGE (NEGATIVE) H 03/13/16 16:00 Urine Nitrate NEGATIVE (NEGATIVE) 03/13/16 16:00 Urine Bilirubin NEGATIVE (NEGATIVE) 03/13/16 16:00 Urine Urobilinogen 1.0 E.U./dL (0.2 - 1.0) 03/13/16 16:00 Ur Leukocyte Esterase TRACE (NEGATIVE) H 03/13/16 16:00 Urine RBC 10-25 /hpf (0-5) H 03/13/16 16:00 Urine WBC 6-10 /hpf (0-5) H 03/13/16 16:00 Ur Epithelial Cells FEW /lpf (FEW) 03/13/16 16:00 Urine Bacteria OCCASIONAL /hpf (NONE SEEN) 03/13/16 16:00 Vancomycin Trough 13.5 ug/mL (10-20) 03/28/16 08:30 Blood Type B POSITIVE 03/19/16 16:10 Antibody Screen NEGATIVE 03/19/16 16:10 Crossmatch See Detail 03/19/16 16:10 - Physical Exam Vitals and I&O: Vital Signs Temp 99.3 F 03/28/16 11:55 Pulse 109 03/28/16 12:07 Resp 22 03/28/16 12:07 BP 102/53 03/28/16 11:55 Pulse Ox 98 03/28/16 12:07 Intake & Output 03/27/16 03/28/16 03/28/16 18:59 06:59 18:59 Intake Total 700 800 100 Output Total 150 Balance 700 650 100 Intake: Intake, IV Amount 700 550 100 Erythromycin Lact 500 mg 250 250 In Sodium Chloride 0.9% 250 ml @ 250 mls/hr IV Q12HR [facility] Rx#:[id number] Levofloxacin 500mg/100mL 100 500 mg In 100 ml @ 100 mls/hr IV Q24HR [facility] Rx#: [id number] Pantoprazole 80 mg In 100 100 Sodium Chloride 0.9% 100 ml @ 10 mls/hr IV Q10H [facility] Rx#:[id number] Vancomycin HCl 1.25 gm In 250 Sodium Chloride 0.9% 250 ml @ 165 mls/hr IV DAILY [facility] Rx#:[id number] metroNIDAZOLE 500mg/NS 200 100 100mL 500 mg In Premix Fluid 1 bag @ 100 mls/hr IV Q8H [facility] Rx#:[id number] Oral 0 TPN/PPN 250 Output: Gastric Drainage 0 Drainage 50 Left Lower Abdomen 50 Urine 100 Other: Stool Characteristics Soft Brown Active Medications: Current Medications Acetaminophen (Tylenol) 650 mg PO Q6HR PRN PRN Reason: PAIN OR TEMP >100 Stop: 05/08/16 21:33 Last Admin: 03/26/16 11:31 Dose: 650 mg Acetaminophen/Codeine Phosphate (Tylenol W/Codeine #3) 1 tab PO Q4HR PRN PRN Reason: PAIN Stop: 05/08/16 21:33 Al Hydrox/Mg Hydrox/Simethicone (Maalox) 30 ml PO Q4HR PRN PRN Reason: Indigestion Stop: 05/08/16 21:33 Albuterol Sulfate (Albuterol 2.5mg/3ml Neb Ud) 2.5 mg IH Q2HR PRN PRN Reason: Shortness of Breath or Wheeze Stop: 05/08/16 21:37 Albuterol Sulfate (Albuterol 2.5mg/3ml Neb Ud) 2.5 mg HHN Q4HRT [facility] Stop: 05/20/16 18:59 Last Admin: 03/28/16 12:04 Dose: 2.5 mg Chlorhexidine Gluconate (Peridex) 15 ml MM 0800,1999 [facility] Stop: 05/20/16 19:59 Last Admin: 03/28/16 09:51 Dose: Not Given Donepezil HCl (Aricept) 10 mg PO HS [facility] Stop: 05/09/16 20:59 Last Admin: 03/27/16 23:08 Dose: 10 mg Enoxaparin Sodium (Lovenox) 40 mg SUBQ BID [facility] Stop: 05/27/16 16:59 Pantoprazole Sodium 80 mg/ (Sodium Chloride) 100 mls @ 10 mls/hr IV Q10H [facility] Stop: 05/08/16 21:44 Last Admin: 03/28/16 09:59 Dose: 10 mls/hr Dextrose/Sodium Chloride (D5-0.45ns) 1,000 mls @ 40 mls/hr IV .Q24H [facility] Stop: 05/18/16 12:59 Last Admin: 03/27/16 17:52 Dose: 40 mls/hr Metronidazole 500 mg/ (Miscellaneous) 100 mls @ 100 mls/hr IV Q8H [facility] Stop: 05/20/16 09:14 Last Admin: 03/28/16 08:15 Dose: 100 mls/hr Norepinephrine Bitartrate 4 mg (/ Dextrose) 254 mls @ 15.24 mls/hr IV TITR PRN ; Protocol; 4 MCG/MIN PRN Reason: BP MAINTENANCE (PER PROTOCOL) Stop: 05/20/16 11:23 Last Titration: 03/21/16 14:45 Dose: 0 mcg/min, 0 mls/hr Levofloxacin (Levaquin Pb) 500 mg in 100 mls @ 100 mls/hr IV Q24HR [facility] Stop: 05/24/16 00:59 Last Infusion: 03/28/16 03:04 Dose: Infused Vancomycin HCl 1.25 gm/ Sodium (Chloride) 250 mls @ 165 mls/hr IV DAILY [facility] Stop: 05/25/16 11:59 Last Admin: 03/28/16 09:57 Dose: 165 mls/hr Erythromycin Lactobionate 500 (mg/ Sodium Chloride) 250 mls @ 250 mls/hr IV Q12HR [facility] Stop: 05/26/16 08:59 Last Admin: 03/28/16 09:06 Dose: 250 mls/hr Amino Acids/ Fat Emulsion (Intravenous) 1,500 mls @ 40 mls/hr IV .Q24H [facility] Stop: 05/27/16 15:59 Insulin Aspart (Novolog Insulin Sliding Scale) 0 units SUBQ Q6HR [facility] PRN Reason: Protocol Stop: 05/25/16 17:59 Last Admin: 03/28/16 11:13 Dose: Not Given Lactobacillus Rhamnosus (Culturelle) 1 each PO DAILY [facility] Stop: 05/22/16 08:59 Last Admin: 03/28/16 09:52 Dose: Not Given Meclizine HCl (Antivert) 25 mg PO DAILY PRN PRN Reason: Nausea / Vomiting Stop: 05/08/16 21:37 Last Admin: 03/26/16 11:32 Dose: 25 mg Metoclopramide HCl (Reglan) 10 mg IVP Q8HR [facility] Stop: 05/23/16 12:59 Last Admin: 03/28/16 12:28 Dose: 10 mg Mirtazapine (Remeron) 7.5 mg PO HS [facility] PRN Reason: Protocol Stop: 05/09/16 20:59 Last Admin: 03/27/16 23:08 Dose: 7.5 mg Miscellaneous (Vte Chemical Prophylaxis Screen/ Admission) 1 ea MC PRN PRN PRN Reason: PROTOCOL Stop: 05/10/16 17:12 Miscellaneous (Tpn Per Pharmacy) 1 ea MC DAILY [facility] Stop: 05/20/16 14:39 Miscellaneous (Probiotic Screen) 1 ea MC PRN PRN PRN Reason: PROTOCOL Stop: 05/21/16 14:39 Miscellaneous (Vancomycin Iv Per Pharmacy) 1 ea MC PRN PRN PRN Reason: PROTOCOL Stop: 05/25/16 11:26 Morphine Sulfate (Morphine) 2 mg IV Q3H PRN PRN Reason: Pain (Moderate) Stop: 05/20/16 10:29 Morphine Sulfate (Morphine) 2 mg IVP Q4HR PRN PRN Reason: Pain (Moderate) Stop: 05/20/16 13:00 Last Admin: 03/27/16 06:43 Dose: 2 mg Ondansetron HCl (Zofran) 4 mg IV Q8H PRN PRN Reason: Nausea / Vomiting Stop: 05/08/16 21:37 Last Admin: 03/21/16 20:01 Dose: 4 mg Quetiapine Fumarate (Seroquel) 100 mg PO QPM [facility] PRN Reason: Protocol Stop: 05/09/16 16:59 Last Admin: 03/27/16 16:59 Dose: 100 mg Tamsulosin HCl (Flomax) 0.4 mg PO DAILY [facility] Stop: 05/09/16 08:59 Last Admin: 03/28/16 09:52 Dose: Not Given General: lethargic, demented HEENT: NC/AT, PERRLA Neck: Supple, No JVD Lungs: congested, rales Cardiovascular: RRR, Normal S1, Normal S2 Abdomen: soft non-tender, globular Extremities: excoriation Neurological: no change - Procedures Procedures: Procedures Procedure Code Date APPENDECTOMY ADD-ON 96122 03/10/16 BIOPSY OF BOWEL 63108 03/10/16 BYPASS DESCENDING COLON TO CUTANEOUS, OPEN APPROACH [id number] 03/10/16 COLOSTOMY 90196 03/10/16 EGD BIOPSY SINGLE/MULTIPLE 63539 03/10/16 EXCISION OF ILEUM, OPEN APPROACH [id number] 03/10/16 EXCISION OF LARGE INTESTINE, PERCUTANEOUS APPROACH, DIAGN [id number] 03/10/16 EXCISION OF STOMACH, ENDO, DIAGN [id number] 03/10/16 FREEING OF BOWEL ADHESION 89630 03/10/16 GROUP PSYCHOTHERAPY 68482 06/08/03 INDIVID PSYCHOTHERAP NEC 94.39 06/08/03 OTHER GROUP THERAPY 94.44 06/08/03 RELEASE ILEUM, OPEN APPROACH [id number] 03/10/16 REMOVAL OF SMALL INTESTINE 98122 03/10/16 RESECTION OF APPENDIX, OPEN APPROACH [id number] 03/10/16 Internal Medicine Assmt/Plan - Assessment Assessment: colon mass- adenoca s\p recection colostomy jonathan drain GI BLEED ANEMIA HYPOTENSION leukocytosis malnutrition afib - Plan Plan: colostomy care picc line tpn cont on iv fluid abx check culture id and gi follow up dw rn check labs s\p sugical resection will place on therapeutic dose of lovenox
--- NOTE | 2016-03-28 14:27 | Diagnostic Imaging Report ---
CT scan abdomen and pelvis without intravenous contrast HISTORY: Pain, postoperative Total DLP equals 402 CTDI equals 8.4 Axial sections were obtained from the xiphoid process down to the pubic symphysis. Limited sections through the lower chest demonstrate faint nonspecific parenchymal density within the lower lobes that may be associated with infiltrate or atelectasis. The liver exhibits a homogeneous parenchyma. No focal lesions. The spleen appears normal. Numerous calcifications are seen within the pancreas consistent with changes of chronic pancreatitis. Multiple loops of markedly dilated small bowel are noted. Findings consistent with a colostomy noted over the left lower abdomen. Nondilated colon is seen. Compared with a prior exam of 03/13/2016, previously reported large abdominal/pelvic mass has been resected. Poor delineation of the margins of the distal bowel in the pelvis. Surgical suture material noted in the right pelvis. Small amounts of intraperitoneal air are seen. Air noted in the subcutaneous tissues over the abdomen. Air extends into the right inguinal canal region with poor delineation bowel margins in the right lower pelvis/inguinal area. IMPRESSION: 1. Multiple loops of markedly dilated small bowel. Changes associated with a distal small bowel obstruction cannot be excluded 2. Small amounts of intraperitoneal and subcutaneous air presumably related to recent surgery 3. Pancreatic calcifications consistent with changes of chronic pancreatitis 4. Surgical changes as noted above
[2016-03-28] MEDS: DEXT IV SCH (15:39)
[2016-03-28] MEDS: INTRALIPIDS IV SCH (15:39)
[2016-03-28] MEDS: AMINO ACIDS IV SCH (15:39)
[2016-03-28] MEDS ORDERED: Enoxaparin 30 mg/0.3 mL 0.3mL Syr SUBQ SCH (17:00)
--- NOTE | 2016-03-28 18:56 | Infectious Disease Prog Note ---
Infectious Disease Subjective - Review of Systems Service Date: 03/28/16 Subjective: On NGT suction, fever is better, abdomen is softer/ Infectious Disease Objective - Results Result Diagrams: 03/28/16 04:48 03/28/16 04:48 Recent Labs: Laboratory Last Values WBC 19.0 Th/cmm (4.8-10.8) H D 03/28/16 04:48 RBC 3.35 Mil/cmm (3.80-5.80) L 03/28/16 04:48 Hgb 9.4 gm/dL (12.6-17.4) L D 03/28/16 04:48 Hct 26.8 % (39.0-49.0) L D 03/28/16 04:48 MCV 80.1 fl (80-99) 03/28/16 04:48 MCH 27.9 pg (27.0-31.0) 03/28/16 04:48 MCHC Differential 34.9 pg (28.0-36.0) 03/28/16 04:48 RDW 20.7 % (11.5-20.0) H 03/28/16 04:48 Plt Count 329 Th/cmm (150-400) 03/28/16 04:48 MPV 8.8 fl 03/28/16 04:48 Neutrophils % 66.8 % (40.0-80.0) 03/17/16 06:19 Band Neutrophils % 3 % (0-10) 03/28/16 04:48 Lymphocytes % 12.9 % (20.0-50.0) L 03/17/16 06:19 Monocytes % 8.2 % (2.0-10.0) 03/17/16 06:19 Eosinophils % 11.8 % (0.0-5.0) H 03/17/16 06:19 Basophils % 0.3 % (0.0-2.0) 03/17/16 06:19 Neutrophils (Manual) 74 % (40-80) 03/28/16 04:48 Lymphocytes 7 % (20-50) L 03/28/16 04:48 Monocytes 12 % (2-10) H 03/28/16 04:48 Eosinophils 2 % (0-5) 03/28/16 04:48 Basophils 1 % (0-3) 03/12/16 08:00 Metamyelocytes 2 % (0-0) H 03/28/16 04:48 Platelet Estimate ADEQUATE (NORMAL) 03/28/16 04:48 Platelet Morphology NORMAL (NORMAL) 03/28/16 04:48 Polychromasia 1+ 03/24/16 06:45 Anisocytosis 1+ 03/28/16 04:48 Microcytosis 1+ 03/21/16 06:19 RBC Morph Micro Appear ABNORMAL (NORMAL) 03/28/16 04:48 PT 11.4 SECONDS (9.5-11.5) 03/24/16 20:04 INR 1.14 (0.5-1.4) 03/24/16 20:04 PTT (Actin FS) 30.2 SECONDS (26.0-38.0) 03/24/16 20:04 Specimen Source Arterial 03/21/16 16:45 Sample Site Right Radial 03/21/16 16:45 pH 7.37 (7.35-7.45) 03/21/16 16:45 pCO2 40.0 mmHg (35.0-45.0) 03/21/16 16:45 pO2 85.0 mmHg (80.0-100.0) 03/21/16 16:45 HCO3 23.1 mmol/L (20.0-26.0) 03/21/16 16:45 Base Excess -2.0 mmol/L (-3.0-3.0) 03/21/16 16:45 O2 Saturation 96.0 % (92.0-100.0) 03/21/16 16:45 Galo Test YES 03/21/16 16:45 Vent Rate NA 03/21/16 16:45 Inspired O2 40 03/21/16 16:45 Tidal Volume NA 03/21/16 16:45 PEEP NA 03/21/16 16:45 Pressure (ins/psv/peep) NA 03/21/16 16:45 Critical Value E.HERNANDEZ 03/21/16 16:45 Sodium 133 mEq/L (136-145) L 03/28/16 04:48 Potassium 4.1 mEq/L (3.5-5.1) 03/28/16 04:48 Chloride 108 mEq/L (98-107) H 03/28/16 04:48 Carbon Dioxide 19.7 mEq/L (21.0-31.0) L 03/28/16 04:48 Anion Gap 9.4 (7.0-16.0) 03/28/16 04:48 BUN 41 mg/dL (7-25) H 03/28/16 04:48 Creatinine 1.4 mg/dL (0.7-1.3) H 03/28/16 04:48 Est GFR ( Amer) > 60.0 ml/min (>90) 03/28/16 04:48 Est GFR (Non-Af Amer) 53.3 ml/min 03/28/16 04:48 BUN/Creatinine Ratio 29.3 03/28/16 04:48 Glucose 115 mg/dL (70-105) H 03/28/16 04:48 POC Glucose 138 MG/DL (70 - 105) H 03/28/16 17:04 Hemoglobin A1c % 5.1 % (4.0-6.0) 03/26/16 06:10 Whole Bld Lactic Acid 1.80 mmol/L (0.60-2.00) 03/26/16 06:10 Calcium 8.6 mg/dL (8.6-10.3) 03/28/16 04:48 Phosphorus 3.7 mg/dL (2.5-5.0) 03/28/16 04:48 Magnesium 2.1 mg/dL (1.9-2.7) 03/28/16 08:30 Ferritin 136 ng/mL (30-400) 03/19/16 07:40 Total Bilirubin 0.7 mg/dL (0.3-1.0) 03/28/16 04:48 AST 20 U/L (13-39) 03/28/16 04:48 ALT 6 U/L (7-52) L 03/28/16 04:48 Alkaline Phosphatase 54 U/L (34-104) 03/28/16 04:48 Ammonia 41 umol/L (16-53) 03/10/16 04:30 B-Natriuretic Peptide 111.0 pg/mL (5.0-100.0) H 03/22/16 04:50 Total Protein 6.3 gm/dL (6.0-8.3) 03/28/16 04:48 Albumin 2.6 gm/dL (4.2-5.5) L 03/28/16 04:48 Globulin 3.7 gm/dL 03/28/16 04:48 Albumin/Globulin Ratio 0.7 (1.0-1.8) L 03/28/16 04:48 Prealbumin 11 mg/dL (10-36) 03/25/16 05:15 Triglycerides 63 mg/dL (<150) 03/25/16 05:15 Cholesterol 109 mg/dL (<200) 03/25/16 05:15 Carcinoembryonic Ag 2.7 ng/mL (0.0-4.7) 03/18/16 06:19 Vitamin B12 389 pg/mL (211-946) 03/10/16 04:30 Folic Acid 13.3 ng/mL (>3.0) 03/10/16 04:30 TSH 2.57 uIU/ml (0.34-5.60) 03/10/16 04:30 Urine Source CATH 03/13/16 16:00 Urine Color YELLOW 03/13/16 16:00 Urine Clarity CLEAR (CLEAR) 03/13/16 16:00 Urine pH 5.5 03/13/16 16:00 Ur Specific [place] 1.010 (1.005-1.030) 03/13/16 16:00 Urine Protein NEGATIVE mg/dL (NEGATIVE) 03/13/16 16:00 Urine Glucose (UA) NEGATIVE mg/dL (NEGATIVE) 03/13/16 16:00 Urine Ketones NEGATIVE mg/dL (NEGATIVE) 03/13/16 16:00 Urine Blood LARGE (NEGATIVE) H 03/13/16 16:00 Urine Nitrate NEGATIVE (NEGATIVE) 03/13/16 16:00 Urine Bilirubin NEGATIVE (NEGATIVE) 03/13/16 16:00 Urine Urobilinogen 1.0 E.U./dL (0.2 - 1.0) 03/13/16 16:00 Ur Leukocyte Esterase TRACE (NEGATIVE) H 03/13/16 16:00 Urine RBC 10-25 /hpf (0-5) H 03/13/16 16:00 Urine WBC 6-10 /hpf (0-5) H 03/13/16 16:00 Ur Epithelial Cells FEW /lpf (FEW) 03/13/16 16:00 Urine Bacteria OCCASIONAL /hpf (NONE SEEN) 03/13/16 16:00 Vancomycin Trough 13.5 ug/mL (10-20) 03/28/16 08:30 Blood Type B POSITIVE 03/19/16 16:10 Antibody Screen NEGATIVE 03/19/16 16:10 Crossmatch See Detail 03/19/16 16:10 - Physical Exam Vitals and I&O: Vital Signs Temp 98.8 F 03/28/16 16:00 Pulse 104 03/28/16 18:00 Resp 25 03/28/16 18:00 BP 102/49 03/28/16 18:00 Pulse Ox 98 03/28/16 18:00 Intake & Output 03/27/16 03/28/16 03/28/16 18:59 06:59 18:59 Intake Total 178 351 2424 Output Total 150 2150 Balance 700 650 -450 Intake: Intake, IV Amount 251 001 0538 Erythromycin Lact 500 mg 250 250 250 In Sodium Chloride 0.9% 250 ml @ 250 mls/hr IV Q12HR [facility] Rx#:[id number] Levofloxacin 500mg/100mL 100 500 mg In 100 ml @ 100 mls/hr IV Q24HR [facility] Rx#: [id number] Pantoprazole 80 mg In 100 100 Sodium Chloride 0.9% 100 ml @ 10 mls/hr IV Q10H [facility] Rx#:[id number] Vancomycin HCl 1.25 gm In 250 250 Sodium Chloride 0.9% 250 ml @ 165 mls/hr IV DAILY [facility] Rx#:[id number] metroNIDAZOLE 500mg/NS 200 100 100 100mL 500 mg In Premix Fluid 1 bag @ 100 mls/hr IV Q8H [facility] Rx#:[id number] Oral 0 0 TPN/PPN 250 Output: Gastric Drainage 0 1500 Drainage 50 Left Lower Abdomen 50 Urine 100 650 Other: # Bowel Movements 1 Stool Characteristics Soft Brown Active Medications: Current Medications Acetaminophen (Tylenol) 650 mg PO Q6HR PRN PRN Reason: PAIN OR TEMP >100 Stop: 05/08/16 21:33 Last Admin: 03/26/16 11:31 Dose: 650 mg Acetaminophen/Codeine Phosphate (Tylenol W/Codeine #3) 1 tab PO Q4HR PRN PRN Reason: PAIN Stop: 05/08/16 21:33 Al Hydrox/Mg Hydrox/Simethicone (Maalox) 30 ml PO Q4HR PRN PRN Reason: Indigestion Stop: 05/08/16 21:33 Albuterol Sulfate (Albuterol 2.5mg/3ml Neb Ud) 2.5 mg IH Q2HR PRN PRN Reason: Shortness of Breath or Wheeze Stop: 05/08/16 21:37 Albuterol Sulfate (Albuterol 2.5mg/3ml Neb Ud) 2.5 mg HHN Q4HRT [facility] Stop: 05/20/16 18:59 Last Admin: 03/28/16 16:20 Dose: 2.5 mg Donepezil HCl (Aricept) 10 mg PO HS [facility] Stop: 05/09/16 20:59 Last Admin: 03/27/16 23:08 Dose: 10 mg Enoxaparin Sodium (Lovenox) 40 mg SUBQ Q12H [facility] Stop: 05/27/16 20:59 Pantoprazole Sodium 80 mg/ (Sodium Chloride) 100 mls @ 10 mls/hr IV Q10H [facility] Stop: 05/08/16 21:44 Last Admin: 03/28/16 09:59 Dose: 10 mls/hr Dextrose/Sodium Chloride (D5-0.45ns) 1,000 mls @ 40 mls/hr IV .Q24H [facility] Stop: 05/18/16 12:59 Last Admin: 03/27/16 17:52 Dose: 40 mls/hr Metronidazole 500 mg/ (Miscellaneous) 100 mls @ 100 mls/hr IV Q8H [facility] Stop: 05/20/16 09:14 Last Admin: 03/28/16 16:29 Dose: 100 mls/hr Norepinephrine Bitartrate 4 mg (/ Dextrose) 254 mls @ 15.24 mls/hr IV TITR PRN ; Protocol; 4 MCG/MIN PRN Reason: BP MAINTENANCE (PER PROTOCOL) Stop: 05/20/16 11:23 Last Titration: 03/21/16 14:45 Dose: 0 mcg/min, 0 mls/hr Levofloxacin (Levaquin Pb) 500 mg in 100 mls @ 100 mls/hr IV Q24HR [facility] Stop: 05/24/16 00:59 Last Infusion: 03/28/16 03:04 Dose: Infused Erythromycin Lactobionate 500 (mg/ Sodium Chloride) 250 mls @ 250 mls/hr IV Q12HR [facility] Stop: 05/26/16 08:59 Last Infusion: 03/28/16 10:00 Dose: Infused Amino Acids/ Fat Emulsion (Intravenous) 1,500 mls @ 40 mls/hr IV .Q24H [facility] Stop: 05/27/16 15:59 Last Admin: 03/28/16 15:39 Dose: 40 mls/hr Vancomycin HCl 1.25 gm/ Sodium (Chloride) 250 mls @ 165 mls/hr IV Q24H [facility] Stop: 05/28/16 07:59 Insulin Aspart (Novolog Insulin Sliding Scale) 0 units SUBQ Q6HR [facility] PRN Reason: Protocol Stop: 05/25/16 17:59 Last Admin: 03/28/16 17:26 Dose: Not Given Lactobacillus Rhamnosus (Culturelle) 1 each PO DAILY [facility] Stop: 05/22/16 08:59 Last Admin: 03/28/16 09:52 Dose: Not Given Meclizine HCl (Antivert) 25 mg PO DAILY PRN PRN Reason: Nausea / Vomiting Stop: 05/08/16 21:37 Last Admin: 03/26/16 11:32 Dose: 25 mg Metoclopramide HCl (Reglan) 10 mg IVP Q8HR [facility] Stop: 05/23/16 12:59 Last Admin: 03/28/16 12:28 Dose: 10 mg Mirtazapine (Remeron) 7.5 mg PO HS [facility] PRN Reason: Protocol Stop: 05/09/16 20:59 Last Admin: 03/27/16 23:08 Dose: 7.5 mg Miscellaneous (Vte Chemical Prophylaxis Screen/ Admission) 1 ea [facility] PRN PRN PRN Reason: PROTOCOL Stop: 05/10/16 17:12 Miscellaneous (Tpn Per Pharmacy) 1 ea MC DAILY [facility] Stop: 05/20/16 14:39 Miscellaneous (Probiotic Screen) 1 ea [facility] PRN PRN PRN Reason: PROTOCOL Stop: 05/21/16 14:39 Miscellaneous (Vancomycin Iv Per Pharmacy) 1 ea [facility] PRN PRN PRN Reason: PROTOCOL Stop: 05/25/16 11:26 Morphine Sulfate (Morphine) 2 mg IV Q3H PRN PRN Reason: Pain (Moderate) Stop: 05/20/16 10:29 Morphine Sulfate (Morphine) 2 mg IVP Q4HR PRN PRN Reason: Pain (Moderate) Stop: 05/20/16 13:00 Last Admin: 03/27/16 06:43 Dose: 2 mg Ondansetron HCl (Zofran) 4 mg IV Q8H PRN PRN Reason: Nausea / Vomiting Stop: 05/08/16 21:37 Last Admin: 03/21/16 20:01 Dose: 4 mg Quetiapine Fumarate (Seroquel) 100 mg PO QPM [facility] PRN Reason: Protocol Stop: 05/09/16 16:59 Last Admin: 03/28/16 17:26 Dose: Not Given Tamsulosin HCl (Flomax) 0.4 mg PO DAILY [facility] Stop: 05/09/16 08:59 Last Admin: 03/28/16 09:52 Dose: Not Given General: no acute distress, well developed, well nourished HEENT: atraumatic, no normocephalic, no PERRLA Neck: supple, no thyromegaly Cardiovascular: S1S2, regular Lungs: clear to auscultation bilaterally, clear to percussion Abdomen: soft, tender, distended Extremities: other (Colostomy. wound has lesser drainage.), no cyanosis, no clubbing, no edema Neurological: awake, alert, oriented Skin: intact - Procedures Procedures: Procedures Procedure Code Date APPENDECTOMY ADD-ON 44577 03/10/16 BIOPSY OF BOWEL 16056 03/10/16 BYPASS DESCENDING COLON TO CUTANEOUS, OPEN APPROACH [id number] 03/10/16 COLOSTOMY 80345 03/10/16 EGD BIOPSY SINGLE/MULTIPLE 61057 03/10/16 EXCISION OF ILEUM, OPEN APPROACH [id number] 03/10/16 EXCISION OF LARGE INTESTINE, PERCUTANEOUS APPROACH, DIAGN [id number] 03/10/16 EXCISION OF STOMACH, ENDO, DIAGN [id number] 03/10/16 FREEING OF BOWEL ADHESION 59418 03/10/16 GROUP PSYCHOTHERAPY 04846 06/08/03 INDIVID PSYCHOTHERAP NEC 94.39 06/08/03 OTHER GROUP THERAPY 94.44 06/08/03 RELEASE ILEUM, OPEN APPROACH [id number] 03/10/16 REMOVAL OF SMALL INTESTINE 34167 03/10/16 RESECTION OF APPENDIX, OPEN APPROACH [id number] 03/10/16 Infectious Disease Assmt/Plan - Problem List Patient Problems: All Active Problems BLOOD CLOT IN STOOL (Acute) - Assessment Assessment: Impression: 1. Sepsis, fever and leukocytosis peritinitis. SBO, Bowel perforation. 2. Peritonitis. 3. GI Bleed 2/ #2. 4. Dementia. 5. History of hypertension. 6. s/p colectomy and colostomy. 7. Intraabdominal mass? colon CA. associated colitis. 8. Suspect ileus. RECOMMENDATIONS: Continue vanco IV and meropenem. Dc flagyl. Sepsis w/u.
[2016-03-28] MEDS: Morphine Sulfate 2 mg/mL 1mL Syr IVP PRN (18:59)
[2016-03-28] MEDS: Enoxaparin 40 mg/0.4 mL 0.4mL Syr SUBQ SCH (20:48)
[2016-03-28] MEDS: Meropenem 1 GM in Sodium Chloride 0.9% 100 ML IV SCH (21:49)
[2016-03-29] MEDS: INSULIN ASPART SLIDING SCALE 100 UNITS/ML UNIT SUBQ SCH ×4 (01:24→17:37)
[2016-03-29] MEDS: metroNIDAZOLE 500mg/NS 100mL 500 MG/100 ML BAG IV SCH ×4 (01:27→21:05)
[2016-03-29] MEDS: Albuterol Nebulizer 2.5mg/3mL HHN SCH ×6 (02:41→22:59)
[2016-03-29 06:12] LABS: MEAN CELL VOLUME 81.6 fl (80-99); MEAN CORPUSCULAR HEMOGLOBIN 27.8 pg (27.0-31.0); MEAN CORPUSCULAR HGB CONC 34.1 pg (28.0-36.0); MEAN PLATELET VOLUME 8.4 fl; PLATELET COUNT 359 Th/cmm (150-400); RED BLOOD COUNT 2.88 Mil/cmm (3.80-5.80); RED CELL DISTRIBUTION WIDTH 20.2 % (11.5-20.0)
[2016-03-29 06:16] LABS: HEMATOCRIT 23.5 % (39.0-49.0); WHITE BLOOD COUNT 13.9 Th/cmm (4.8-10.8)
[2016-03-29] MEDS: Metoclopramide 5 mg/mL 2mL Vial IVP SCH ×3 (06:19→21:05)
[2016-03-29 06:24] LABS: ALB/GLOB RATIO 0.7 (1.0-1.8); ALKALINE PHOSPHATASE 48 U/L (34-104); ANION GAP 5.9 (7.0-16.0); BILIRUBIN,TOTAL 0.4 mg/dL (0.3-1.0); BUN - UREA NITROGEN 29 mg/dL (7-25); BUN/CREATININE RATIO 26.4; CALCIUM SERUM 8.5 mg/dL (8.6-10.3); CARBON DIOXIDE 21.6 mEq/L (21.0-31.0); CHLORIDE 114 mEq/L (98-107); CREATININE - SERUM 1.1 mg/dL (0.7-1.3); GLUCOSE 137 mg/dL (70-105); POTASSIUM SERUM 3.5 mEq/L (3.5-5.1); SGOT 11 U/L (13-39); SGPT/ALT 5 U/L (7-52); SODIUM SERUM 138 mEq/L (136-145)
[2016-03-29] MEDS: Pantoprazole 80 MG in Sodium Chloride 0.9% 100 ML IV SCH ×2 (07:00→11:59)
[2016-03-29 07:39] LABS: ANISOCYTOSIS 1+; BAND NEUTROPHILE 3 % (0-10); EOSINOPHIL 2 % (0-5); METAMYELOCYTE 1 % (0-0); NEUTROPHILS 77 % (40-80); PLATELET ESTIMATE ADEQUATE (NORMAL); TOTAL CELLS COUNTED 100
[2016-03-29 07:40] LABS: PLATELET MORPHOLOGY NORMAL (NORMAL)
[2016-03-29] MEDS: Lactobacillus Rhamnosus 10 Billion CFU Capsule PO SCH (09:05)
[2016-03-29] MEDS: D5-0.45NS 1,000 ML IV SCH (09:08)
[2016-03-29] MEDS: Meropenem 1 GM in Sodium Chloride 0.9% 100 ML IV SCH ×2 (10:31→23:22)
--- NOTE | 2016-03-29 11:06 | Diagnostic Imaging Report ---
Portable chest x-ray HISTORY: Shortness of breath The overall heart size is normal. No acute focal pulmonary processes. Old left rib fractures are seen. Nasogastric tube extends into the region of the stomach. IMPRESSION: 1. No acute pulmonary processes
[2016-03-29] MEDS: ERYTHROMYCIN LACT IV SCH ×2 (12:04→22:09)
[2016-03-29] MEDS: SODIUM CHLORIDE 0.9% IV SCH ×2 (12:04→22:09)
[2016-03-29] MEDS: Enoxaparin 40 mg/0.4 mL 0.4mL Syr SUBQ SCH ×2 (12:05→17:39)
[2016-03-29 12:41] LABS: ALB/GLOB RATIO 0.7 (1.0-1.8); ALKALINE PHOSPHATASE 49 U/L (34-104); ANION GAP 9.7 (7.0-16.0); BILIRUBIN,TOTAL 0.4 mg/dL (0.3-1.0); BUN - UREA NITROGEN 25 mg/dL (7-25); BUN/CREATININE RATIO 22.7; CALCIUM SERUM 8.6 mg/dL (8.6-10.3); CARBON DIOXIDE 21.9 mEq/L (21.0-31.0); CHLORIDE 114 mEq/L (98-107); CREATININE - SERUM 1.1 mg/dL (0.7-1.3); GLUCOSE 149 mg/dL (70-105); POTASSIUM SERUM 3.6 mEq/L (3.5-5.1); SGOT 11 U/L (13-39); SGPT/ALT 5 U/L (7-52); SODIUM SERUM 142 mEq/L (136-145)
--- NOTE | 2016-03-29 12:53 | Internal Medicine Prog Note ---
Internal Medicine Subjective - Subjective Patient seen and examined:: with staff, chart reviewed Patient is:: awake, non-verbal, non-interactive Patient Complaints of:: other (ngt in placed) Per staff patient is:: confused (pr), other (productive ngt return 1200 cc last 24 hrs) Internal Medicine Objective - Results Result Diagrams: 03/29/16 05:00 03/29/16 12:20 Recent Labs: Laboratory Last Values WBC 13.9 Th/cmm (4.8-10.8) H D 03/29/16 05:00 RBC 2.88 Mil/cmm (3.80-5.80) L 03/29/16 05:00 Hgb 8.0 gm/dL (12.6-17.4) L D 03/29/16 05:00 Hct 23.5 % (39.0-49.0) L* D 03/29/16 05:00 MCV 81.6 fl (80-99) 03/29/16 05:00 MCH 27.8 pg (27.0-31.0) 03/29/16 05:00 MCHC Differential 34.1 pg (28.0-36.0) 03/29/16 05:00 RDW 20.2 % (11.5-20.0) H 03/29/16 05:00 Plt Count 359 Th/cmm (150-400) 03/29/16 05:00 MPV 8.4 fl 03/29/16 05:00 Neutrophils % 66.8 % (40.0-80.0) 03/17/16 06:19 Band Neutrophils % 3 % (0-10) 03/29/16 05:00 Lymphocytes % 12.9 % (20.0-50.0) L 03/17/16 06:19 Monocytes % 8.2 % (2.0-10.0) 03/17/16 06:19 Eosinophils % 11.8 % (0.0-5.0) H 03/17/16 06:19 Basophils % 0.3 % (0.0-2.0) 03/17/16 06:19 Neutrophils (Manual) 77 % (40-80) 03/29/16 05:00 Lymphocytes 8 % (20-50) L 03/29/16 05:00 Monocytes 9 % (2-10) 03/29/16 05:00 Eosinophils 2 % (0-5) 03/29/16 05:00 Basophils 1 % (0-3) 03/12/16 08:00 Metamyelocytes 1 % (0-0) H 03/29/16 05:00 Platelet Estimate ADEQUATE (NORMAL) 03/29/16 05:00 Platelet Morphology NORMAL (NORMAL) 03/29/16 05:00 Polychromasia 1+ 03/24/16 06:45 Anisocytosis 1+ 03/29/16 05:00 Microcytosis 1+ 03/21/16 06:19 RBC Morph Micro Appear ABNORMAL (NORMAL) 03/29/16 05:00 PT 11.4 SECONDS (9.5-11.5) 03/24/16 20:04 INR 1.14 (0.5-1.4) 03/24/16 20:04 PTT (Actin FS) 30.2 SECONDS (26.0-38.0) 03/24/16 20:04 Specimen Source Arterial 03/21/16 16:45 Sample Site Right Radial 03/21/16 16:45 pH 7.37 (7.35-7.45) 03/21/16 16:45 pCO2 40.0 mmHg (35.0-45.0) 03/21/16 16:45 pO2 85.0 mmHg (80.0-100.0) 03/21/16 16:45 HCO3 23.1 mmol/L (20.0-26.0) 03/21/16 16:45 Base Excess -2.0 mmol/L (-3.0-3.0) 03/21/16 16:45 O2 Saturation 96.0 % (92.0-100.0) 03/21/16 16:45 Galo Test YES 03/21/16 16:45 Vent Rate NA 03/21/16 16:45 Inspired O2 40 03/21/16 16:45 Tidal Volume NA 03/21/16 16:45 PEEP NA 03/21/16 16:45 Pressure (ins/psv/peep) NA 03/21/16 16:45 Critical Value E.HERNANDEZ 03/21/16 16:45 Sodium 142 mEq/L (136-145) 03/29/16 12:20 Potassium 3.6 mEq/L (3.5-5.1) 03/29/16 12:20 Chloride 114 mEq/L (98-107) H 03/29/16 12:20 Carbon Dioxide 21.9 mEq/L (21.0-31.0) 03/29/16 12:20 Anion Gap 9.7 (7.0-16.0) 03/29/16 12:20 BUN 25 mg/dL (7-25) 03/29/16 12:20 Creatinine 1.1 mg/dL (0.7-1.3) 03/29/16 12:20 Est GFR ( Amer) > 60.0 ml/min (>90) 03/29/16 12:20 Est GFR (Non-Af Amer) > 60.0 ml/min 03/29/16 12:20 BUN/Creatinine Ratio 22.7 03/29/16 12:20 Glucose 149 mg/dL (70-105) H 03/29/16 12:20 POC Glucose 157 MG/DL (70 - 105) H 03/29/16 06:05 Hemoglobin A1c % 5.1 % (4.0-6.0) 03/26/16 06:10 Whole Bld Lactic Acid 1.80 mmol/L (0.60-2.00) 03/26/16 06:10 Calcium 8.6 mg/dL (8.6-10.3) 03/29/16 12:20 Phosphorus 2.7 mg/dL (2.5-5.0) 03/29/16 05:00 Magnesium 2.3 mg/dL (1.9-2.7) 03/29/16 05:00 Ferritin 136 ng/mL (30-400) 03/19/16 07:40 Total Bilirubin 0.4 mg/dL (0.3-1.0) 03/29/16 12:20 AST 11 U/L (13-39) L 03/29/16 12:20 ALT 5 U/L (7-52) L 03/29/16 12:20 Alkaline Phosphatase 49 U/L (34-104) 03/29/16 12:20 Ammonia 32 umol/L (16-53) 03/29/16 05:00 B-Natriuretic Peptide 17.5 pg/mL (5.0-100.0) 03/29/16 05:00 Total Protein 6.2 gm/dL (6.0-8.3) 03/29/16 12:20 Albumin 2.5 gm/dL (4.2-5.5) L 03/29/16 12:20 Globulin 3.7 gm/dL 03/29/16 12:20 Albumin/Globulin Ratio 0.7 (1.0-1.8) L 03/29/16 12:20 Prealbumin 11 mg/dL (10-36) 03/25/16 05:15 Triglycerides 63 mg/dL (<150) 03/25/16 05:15 Cholesterol 109 mg/dL (<200) 03/25/16 05:15 Carcinoembryonic Ag 2.7 ng/mL (0.0-4.7) 03/18/16 06:19 Vitamin B12 389 pg/mL (211-946) 03/10/16 04:30 Folic Acid 13.3 ng/mL (>3.0) 03/10/16 04:30 TSH 2.57 uIU/ml (0.34-5.60) 03/10/16 04:30 Urine Source CATH 03/13/16 16:00 Urine Color YELLOW 03/13/16 16:00 Urine Clarity CLEAR (CLEAR) 03/13/16 16:00 Urine pH 5.5 03/13/16 16:00 Ur Specific [place] 1.010 (1.005-1.030) 03/13/16 16:00 Urine Protein NEGATIVE mg/dL (NEGATIVE) 03/13/16 16:00 Urine Glucose (UA) NEGATIVE mg/dL (NEGATIVE) 03/13/16 16:00 Urine Ketones NEGATIVE mg/dL (NEGATIVE) 03/13/16 16:00 Urine Blood LARGE (NEGATIVE) H 03/13/16 16:00 Urine Nitrate NEGATIVE (NEGATIVE) 03/13/16 16:00 Urine Bilirubin NEGATIVE (NEGATIVE) 03/13/16 16:00 Urine Urobilinogen 1.0 E.U./dL (0.2 - 1.0) 03/13/16 16:00 Ur Leukocyte Esterase TRACE (NEGATIVE) H 03/13/16 16:00 Urine RBC 10-25 /hpf (0-5) H 03/13/16 16:00 Urine WBC 6-10 /hpf (0-5) H 03/13/16 16:00 Ur Epithelial Cells FEW /lpf (FEW) 03/13/16 16:00 Urine Bacteria OCCASIONAL /hpf (NONE SEEN) 03/13/16 16:00 Vancomycin Trough 13.5 ug/mL (10-20) 03/28/16 08:30 Blood Type B POSITIVE 03/29/16 09:15 Antibody Screen NEGATIVE 03/29/16 09:15 Crossmatch See Detail 03/29/16 09:15 - Physical Exam Vitals and I&O: Vital Signs Temp 99.5 F 03/29/16 04:00 Pulse 118 03/29/16 11:42 Resp 20 03/29/16 11:42 BP 101/60 03/29/16 06:00 Pulse Ox 100 03/29/16 11:42 Intake & Output 03/28/16 03/29/16 03/29/16 18:59 06:59 18:59 Intake Total 2700 1130 399.833 Output Total 2150 1650 Balance 550 -520 399.833 Weight (lbs) 61.235 kg Intake: Intake, IV Amount 2700 650 399.833 D5-0.45NS 1,000 ml @ 40 1000 mls/hr IV .Q24H [facility] Rx#: [id number] Erythromycin Lact 500 mg 250 250 In Sodium Chloride 0.9% 250 ml @ 250 mls/hr IV Q12HR [facility] Rx#:[id number] Meropenem 1 gm In Sodium 100 Chloride 0.9% 100 ml @ 100 mls/hr IV Q12HR [facility] Rx#:[id number] Pantoprazole 80 mg In 100 200 49.833 Sodium Chloride 0.9% 100 ml @ 10 mls/hr IV Q10H [facility] Rx#:[id number] Vancomycin HCl 1.25 gm In 250 Sodium Chloride 0.9% 250 ml @ 165 mls/hr IV DAILY [facility] Rx#:[id number] Vancomycin HCl 1.25 gm In 250 Sodium Chloride 0.9% 250 ml @ 165 mls/hr IV Q24H [facility] Rx#:[id number] metroNIDAZOLE 500mg/NS 100 100 100mL 500 mg In 100 ml @ 100 mls/hr IV Q8HR [facility] Rx #:[id number] metroNIDAZOLE 500mg/NS 100 100mL 500 mg In Premix Fluid 1 bag @ 100 mls/hr IV Q8H [facility] Rx#:[id number] Oral 0 0 TPN/PPN 480 Output: Gastric Drainage 1500 1000 Urine 650 650 Other: # Bowel Movements 1 0 Stool Characteristics Soft Soft Brown Brown Active Medications: Current Medications Acetaminophen (Tylenol) 650 mg PO Q6HR PRN PRN Reason: PAIN OR TEMP >100 Stop: 05/08/16 21:33 Last Admin: 03/26/16 11:31 Dose: 650 mg Acetaminophen/Codeine Phosphate (Tylenol W/Codeine #3) 1 tab PO Q4HR PRN PRN Reason: PAIN Stop: 05/08/16 21:33 Al Hydrox/Mg Hydrox/Simethicone (Maalox) 30 ml PO Q4HR PRN PRN Reason: Indigestion Stop: 05/08/16 21:33 Albuterol Sulfate (Albuterol 2.5mg/3ml Neb Ud) 2.5 mg IH Q2HR PRN PRN Reason: Shortness of Breath or Wheeze Stop: 05/08/16 21:37 Albuterol Sulfate (Albuterol 2.5mg/3ml Neb Ud) 2.5 mg HHN Q4HRT [facility] Stop: 05/20/16 18:59 Last Admin: 03/29/16 11:42 Dose: 2.5 mg Donepezil HCl (Aricept) 10 mg PO HS [facility] Stop: 05/09/16 20:59 Last Admin: 03/28/16 20:50 Dose: Not Given Enoxaparin Sodium (Lovenox) 40 mg SUBQ Q12H [facility] Stop: 05/27/16 20:59 Last Admin: 03/29/16 12:05 Dose: Not Given Pantoprazole Sodium 80 mg/ (Sodium Chloride) 100 mls @ 10 mls/hr IV Q10H [facility] Stop: 05/08/16 21:44 Last Admin: 03/29/16 11:59 Dose: 10 mls/hr Dextrose/Sodium Chloride (D5-0.45ns) 1,000 mls @ 40 mls/hr IV .Q24H [facility] Stop: 05/18/16 12:59 Last Admin: 03/29/16 09:08 Dose: 40 mls/hr Norepinephrine Bitartrate 4 mg (/ Dextrose) 254 mls @ 15.24 mls/hr IV TITR PRN ; Protocol; 4 MCG/MIN PRN Reason: BP MAINTENANCE (PER PROTOCOL) Stop: 05/20/16 11:23 Last Titration: 03/21/16 14:45 Dose: 0 mcg/min, 0 mls/hr Erythromycin Lactobionate 500 (mg/ Sodium Chloride) 250 mls @ 250 mls/hr IV Q12HR [facility] Stop: 05/26/16 08:59 Last Admin: 03/29/16 12:04 Dose: 250 mls/hr Amino Acids/ Fat Emulsion (Intravenous) 1,500 mls @ 40 mls/hr IV .Q24H [facility] Stop: 05/27/16 15:59 Last Admin: 03/28/16 15:39 Dose: 40 mls/hr Vancomycin HCl 1.25 gm/ Sodium (Chloride) 250 mls @ 165 mls/hr IV Q24H [facility] Stop: 05/28/16 07:59 Last Infusion: 03/29/16 10:31 Dose: Infused Meropenem 1 gm/ Sodium (Chloride) 100 mls @ 100 mls/hr IV Q12HR [facility] Stop: 05/27/16 20:59 Last Admin: 03/29/16 10:31 Dose: 100 mls/hr Metronidazole (Flagyl) 500 mg in 100 mls @ 100 mls/hr IV Q8HR [facility] Stop: 05/28/16 00:59 Last Admin: 03/29/16 12:08 Dose: 100 mls/hr Insulin Aspart (Novolog Insulin Sliding Scale) 0 units SUBQ Q6HR [facility] PRN Reason: Protocol Stop: 05/25/16 17:59 Last Admin: 03/29/16 12:24 Dose: 2 units Lactobacillus Rhamnosus (Culturelle) 1 each PO DAILY [facility] Stop: 05/22/16 08:59 Last Admin: 03/29/16 09:05 Dose: Not Given Meclizine HCl (Antivert) 25 mg PO DAILY PRN PRN Reason: Nausea / Vomiting Stop: 05/08/16 21:37 Last Admin: 03/26/16 11:32 Dose: 25 mg Metoclopramide HCl (Reglan) 10 mg IVP Q8HR [facility] Stop: 05/23/16 12:59 Last Admin: 03/29/16 12:09 Dose: 10 mg Mirtazapine (Remeron) 7.5 mg PO HS [facility] PRN Reason: Protocol Stop: 05/09/16 20:59 Last Admin: 03/28/16 20:49 Dose: Not Given Miscellaneous (Vte Chemical Prophylaxis Screen/ Admission) 1 ea [facility] PRN PRN PRN Reason: PROTOCOL Stop: 05/10/16 17:12 Miscellaneous (Tpn Per Pharmacy) 1 ea [facility] DAILY [facility] Stop: 05/20/16 14:39 Miscellaneous (Probiotic Screen) 1 ea [facility] PRN PRN PRN Reason: PROTOCOL Stop: 05/21/16 14:39 Miscellaneous (Vancomycin Iv Per Pharmacy) 1 ea [facility] PRN PRN PRN Reason: PROTOCOL Stop: 05/25/16 11:26 Ondansetron HCl (Zofran) 4 mg IV Q8H PRN PRN Reason: Nausea / Vomiting Stop: 05/08/16 21:37 Last Admin: 03/21/16 20:01 Dose: 4 mg Quetiapine Fumarate (Seroquel) 100 mg PO QPM [facility] PRN Reason: Protocol Stop: 05/09/16 16:59 Last Admin: 03/28/16 17:26 Dose: Not Given Tamsulosin HCl (Flomax) 0.4 mg PO DAILY [facility] Stop: 05/09/16 08:59 Last Admin: 03/29/16 09:12 Dose: Not Given General: lethargic, demented HEENT: NC/AT, PERRLA, other (ngt) Neck: Supple Lungs: congested, rales Cardiovascular: RRR, Normal S1, Normal S2 Extremities: excoriation, contracture Neurological: no change - Procedures Procedures: Procedures Procedure Code Date APPENDECTOMY ADD-ON 30204 03/10/16 BIOPSY OF BOWEL 86847 03/10/16 BYPASS DESCENDING COLON TO CUTANEOUS, OPEN APPROACH [id number] 03/10/16 COLOSTOMY 48052 03/10/16 EGD BIOPSY SINGLE/MULTIPLE 02803 03/10/16 EXCISION OF ILEUM, OPEN APPROACH [id number] 03/10/16 EXCISION OF LARGE INTESTINE, PERCUTANEOUS APPROACH, DIAGN [id number] 03/10/16 EXCISION OF STOMACH, ENDO, DIAGN [id number] 03/10/16 FREEING OF BOWEL ADHESION 23939 03/10/16 GROUP PSYCHOTHERAPY 63412 06/08/03 INDIVID PSYCHOTHERAP NEC 94.39 06/08/03 OTHER GROUP THERAPY 94.44 06/08/03 RELEASE ILEUM, OPEN APPROACH 7ENE8ZZ 03/10/16 REMOVAL OF SMALL INTESTINE 99923 03/10/16 RESECTION OF APPENDIX, OPEN APPROACH [id number] 03/10/16 Internal Medicine Assmt/Plan - Assessment Assessment: colon mass- adenoca s\p recection colostomy jonathan drain GI BLEED ANEMIA HYPOTENSION leukocytosis malnutrition afib-paroxysmal - Plan Plan: colostomy care picc line tpn cont on iv fluid abx check culture id and gi follow up dw rn check labs s\p sugical resection will place on therapeutic dose of lovenox
--- NOTE | 2016-03-29 14:02 | Infectious Disease Prog Note ---
Infectious Disease Subjective - Review of Systems Service Date: 03/29/16 Subjective: On NGT suction, fever is better, abdomen is softer/ Infectious Disease Objective - Results Result Diagrams: 03/29/16 05:00 03/29/16 12:20 Recent Labs: Laboratory Last Values WBC 13.9 Th/cmm (4.8-10.8) H D 03/29/16 05:00 RBC 2.88 Mil/cmm (3.80-5.80) L 03/29/16 05:00 Hgb 8.0 gm/dL (12.6-17.4) L D 03/29/16 05:00 Hct 23.5 % (39.0-49.0) L* D 03/29/16 05:00 MCV 81.6 fl (80-99) 03/29/16 05:00 MCH 27.8 pg (27.0-31.0) 03/29/16 05:00 MCHC Differential 34.1 pg (28.0-36.0) 03/29/16 05:00 RDW 20.2 % (11.5-20.0) H 03/29/16 05:00 Plt Count 359 Th/cmm (150-400) 03/29/16 05:00 MPV 8.4 fl 03/29/16 05:00 Neutrophils % 66.8 % (40.0-80.0) 03/17/16 06:19 Band Neutrophils % 3 % (0-10) 03/29/16 05:00 Lymphocytes % 12.9 % (20.0-50.0) L 03/17/16 06:19 Monocytes % 8.2 % (2.0-10.0) 03/17/16 06:19 Eosinophils % 11.8 % (0.0-5.0) H 03/17/16 06:19 Basophils % 0.3 % (0.0-2.0) 03/17/16 06:19 Neutrophils (Manual) 77 % (40-80) 03/29/16 05:00 Lymphocytes 8 % (20-50) L 03/29/16 05:00 Monocytes 9 % (2-10) 03/29/16 05:00 Eosinophils 2 % (0-5) 03/29/16 05:00 Basophils 1 % (0-3) 03/12/16 08:00 Metamyelocytes 1 % (0-0) H 03/29/16 05:00 Platelet Estimate ADEQUATE (NORMAL) 03/29/16 05:00 Platelet Morphology NORMAL (NORMAL) 03/29/16 05:00 Polychromasia 1+ 03/24/16 06:45 Anisocytosis 1+ 03/29/16 05:00 Microcytosis 1+ 03/21/16 06:19 RBC Morph Micro Appear ABNORMAL (NORMAL) 03/29/16 05:00 PT 11.4 SECONDS (9.5-11.5) 03/24/16 20:04 INR 1.14 (0.5-1.4) 03/24/16 20:04 PTT (Actin FS) 30.2 SECONDS (26.0-38.0) 03/24/16 20:04 Specimen Source Arterial 03/21/16 16:45 Sample Site Right Radial 03/21/16 16:45 pH 7.37 (7.35-7.45) 03/21/16 16:45 pCO2 40.0 mmHg (35.0-45.0) 03/21/16 16:45 pO2 85.0 mmHg (80.0-100.0) 03/21/16 16:45 HCO3 23.1 mmol/L (20.0-26.0) 03/21/16 16:45 Base Excess -2.0 mmol/L (-3.0-3.0) 03/21/16 16:45 O2 Saturation 96.0 % (92.0-100.0) 03/21/16 16:45 Galo Test YES 03/21/16 16:45 Vent Rate NA 03/21/16 16:45 Inspired O2 40 03/21/16 16:45 Tidal Volume NA 03/21/16 16:45 PEEP NA 03/21/16 16:45 Pressure (ins/psv/peep) NA 03/21/16 16:45 Critical Value E.HERNANDEZ 03/21/16 16:45 Sodium 142 mEq/L (136-145) 03/29/16 12:20 Potassium 3.6 mEq/L (3.5-5.1) 03/29/16 12:20 Chloride 114 mEq/L (98-107) H 03/29/16 12:20 Carbon Dioxide 21.9 mEq/L (21.0-31.0) 03/29/16 12:20 Anion Gap 9.7 (7.0-16.0) 03/29/16 12:20 BUN 25 mg/dL (7-25) 03/29/16 12:20 Creatinine 1.1 mg/dL (0.7-1.3) 03/29/16 12:20 Est GFR ( Amer) > 60.0 ml/min (>90) 03/29/16 12:20 Est GFR (Non-Af Amer) > 60.0 ml/min 03/29/16 12:20 BUN/Creatinine Ratio 22.7 03/29/16 12:20 Glucose 149 mg/dL (70-105) H 03/29/16 12:20 POC Glucose 157 MG/DL (70 - 105) H 03/29/16 06:05 Hemoglobin A1c % 5.1 % (4.0-6.0) 03/26/16 06:10 Whole Bld Lactic Acid 1.80 mmol/L (0.60-2.00) 03/26/16 06:10 Calcium 8.6 mg/dL (8.6-10.3) 03/29/16 12:20 Phosphorus 2.7 mg/dL (2.5-5.0) 03/29/16 05:00 Magnesium 2.3 mg/dL (1.9-2.7) 03/29/16 05:00 Ferritin 136 ng/mL (30-400) 03/19/16 07:40 Total Bilirubin 0.4 mg/dL (0.3-1.0) 03/29/16 12:20 AST 11 U/L (13-39) L 03/29/16 12:20 ALT 5 U/L (7-52) L 03/29/16 12:20 Alkaline Phosphatase 49 U/L (34-104) 03/29/16 12:20 Ammonia 32 umol/L (16-53) 03/29/16 05:00 B-Natriuretic Peptide 17.5 pg/mL (5.0-100.0) 03/29/16 05:00 Total Protein 6.2 gm/dL (6.0-8.3) 03/29/16 12:20 Albumin 2.5 gm/dL (4.2-5.5) L 03/29/16 12:20 Globulin 3.7 gm/dL 03/29/16 12:20 Albumin/Globulin Ratio 0.7 (1.0-1.8) L 03/29/16 12:20 Prealbumin 11 mg/dL (10-36) 03/25/16 05:15 Triglycerides 63 mg/dL (<150) 03/25/16 05:15 Cholesterol 109 mg/dL (<200) 03/25/16 05:15 Carcinoembryonic Ag 2.7 ng/mL (0.0-4.7) 03/18/16 06:19 Vitamin B12 389 pg/mL (211-946) 03/10/16 04:30 Folic Acid 13.3 ng/mL (>3.0) 03/10/16 04:30 TSH 2.57 uIU/ml (0.34-5.60) 03/10/16 04:30 Urine Source CATH 03/13/16 16:00 Urine Color YELLOW 03/13/16 16:00 Urine Clarity CLEAR (CLEAR) 03/13/16 16:00 Urine pH 5.5 03/13/16 16:00 Ur Specific [place] 1.010 (1.005-1.030) 03/13/16 16:00 Urine Protein NEGATIVE mg/dL (NEGATIVE) 03/13/16 16:00 Urine Glucose (UA) NEGATIVE mg/dL (NEGATIVE) 03/13/16 16:00 Urine Ketones NEGATIVE mg/dL (NEGATIVE) 03/13/16 16:00 Urine Blood LARGE (NEGATIVE) H 03/13/16 16:00 Urine Nitrate NEGATIVE (NEGATIVE) 03/13/16 16:00 Urine Bilirubin NEGATIVE (NEGATIVE) 03/13/16 16:00 Urine Urobilinogen 1.0 E.U./dL (0.2 - 1.0) 03/13/16 16:00 Ur Leukocyte Esterase TRACE (NEGATIVE) H 03/13/16 16:00 Urine RBC 10-25 /hpf (0-5) H 03/13/16 16:00 Urine WBC 6-10 /hpf (0-5) H 03/13/16 16:00 Ur Epithelial Cells FEW /lpf (FEW) 03/13/16 16:00 Urine Bacteria OCCASIONAL /hpf (NONE SEEN) 03/13/16 16:00 Vancomycin Trough 13.5 ug/mL (10-20) 03/28/16 08:30 Blood Type B POSITIVE 03/29/16 09:15 Antibody Screen NEGATIVE 03/29/16 09:15 Crossmatch See Detail 03/29/16 09:15 - Physical Exam Vitals and I&O: Vital Signs Temp 99.5 F 03/29/16 04:00 Pulse 118 03/29/16 11:42 Resp 20 03/29/16 11:42 BP 101/60 03/29/16 06:00 Pulse Ox 100 03/29/16 11:42 Intake & Output 03/28/16 03/29/16 03/29/16 18:59 06:59 18:59 Intake Total 2700 1130 399.833 Output Total 2150 1650 Balance 550 -520 399.833 Weight (lbs) 61.235 kg Intake: Intake, IV Amount 2700 650 399.833 D5-0.45NS 1,000 ml @ 40 1000 mls/hr IV .Q24H [facility] Rx#: [id number] Erythromycin Lact 500 mg 250 250 In Sodium Chloride 0.9% 250 ml @ 250 mls/hr IV Q12HR [facility] Rx#:[id number] Meropenem 1 gm In Sodium 100 Chloride 0.9% 100 ml @ 100 mls/hr IV Q12HR [facility] Rx#:[id number] Pantoprazole 80 mg In 100 200 49.833 Sodium Chloride 0.9% 100 ml @ 10 mls/hr IV Q10H [facility] Rx#:[id number] Vancomycin HCl 1.25 gm In 250 Sodium Chloride 0.9% 250 ml @ 165 mls/hr IV DAILY [facility] Rx#:[id number] Vancomycin HCl 1.25 gm In 250 Sodium Chloride 0.9% 250 ml @ 165 mls/hr IV Q24H [facility] Rx#:[id number] metroNIDAZOLE 500mg/NS 100 100 100mL 500 mg In 100 ml @ 100 mls/hr IV Q8HR [facility] Rx #:[id number] metroNIDAZOLE 500mg/NS 100 100mL 500 mg In Premix Fluid 1 bag @ 100 mls/hr IV Q8H [facility] Rx#:[id number] Oral 0 0 TPN/PPN 480 Output: Gastric Drainage 1500 1000 Urine 650 650 Other: # Bowel Movements 1 0 Stool Characteristics Soft Soft Brown Brown Active Medications: Current Medications Acetaminophen (Tylenol) 650 mg PO Q6HR PRN PRN Reason: PAIN OR TEMP >100 Stop: 05/08/16 21:33 Last Admin: 03/26/16 11:31 Dose: 650 mg Acetaminophen (Tylenol 650mg Supp) 650 mg RC Q6H PRN PRN Reason: Fever > 101 Stop: 05/28/16 12:49 Acetaminophen (Tylenol 650mg Supp) 650 mg RC Q4H PRN PRN Reason: Fever > 101 Stop: 05/28/16 12:55 Acetaminophen/Codeine Phosphate (Tylenol W/Codeine #3) 1 tab PO Q4HR PRN PRN Reason: PAIN Stop: 05/08/16 21:33 Al Hydrox/Mg Hydrox/Simethicone (Maalox) 30 ml PO Q4HR PRN PRN Reason: Indigestion Stop: 05/08/16 21:33 Albuterol Sulfate (Albuterol 2.5mg/3ml Neb Ud) 2.5 mg IH Q2HR PRN PRN Reason: Shortness of Breath or Wheeze Stop: 05/08/16 21:37 Albuterol Sulfate (Albuterol 2.5mg/3ml Neb Ud) 2.5 mg HHN Q4HRT [facility] Stop: 05/20/16 18:59 Last Admin: 03/29/16 11:42 Dose: 2.5 mg Donepezil HCl (Aricept) 10 mg PO HS [facility] Stop: 05/09/16 20:59 Last Admin: 03/28/16 20:50 Dose: Not Given Enoxaparin Sodium (Lovenox) 30 mg SUBQ DAILY [facility] Stop: 05/29/16 08:59 Pantoprazole Sodium 80 mg/ (Sodium Chloride) 100 mls @ 10 mls/hr IV Q10H [facility] Stop: 05/08/16 21:44 Last Admin: 03/29/16 11:59 Dose: 10 mls/hr Dextrose/Sodium Chloride (D5-0.45ns) 1,000 mls @ 40 mls/hr IV .Q24H [facility] Stop: 05/18/16 12:59 Last Admin: 03/29/16 09:08 Dose: 40 mls/hr Norepinephrine Bitartrate 4 mg (/ Dextrose) 254 mls @ 15.24 mls/hr IV TITR PRN ; Protocol; 4 MCG/MIN PRN Reason: BP MAINTENANCE (PER PROTOCOL) Stop: 05/20/16 11:23 Last Titration: 03/21/16 14:45 Dose: 0 mcg/min, 0 mls/hr Erythromycin Lactobionate 500 (mg/ Sodium Chloride) 250 mls @ 250 mls/hr IV Q12HR [facility] Stop: 05/26/16 08:59 Last Admin: 03/29/16 12:04 Dose: 250 mls/hr Amino Acids/ Fat Emulsion (Intravenous) 1,500 mls @ 40 mls/hr IV .Q24H [facility] Stop: 05/27/16 15:59 Last Admin: 03/28/16 15:39 Dose: 40 mls/hr Vancomycin HCl 1.25 gm/ Sodium (Chloride) 250 mls @ 165 mls/hr IV Q24H [facility] Stop: 05/28/16 07:59 Last Infusion: 03/29/16 10:31 Dose: Infused Meropenem 1 gm/ Sodium (Chloride) 100 mls @ 100 mls/hr IV Q12HR [facility] Stop: 05/27/16 20:59 Last Admin: 03/29/16 10:31 Dose: 100 mls/hr Metronidazole (Flagyl) 500 mg in 100 mls @ 100 mls/hr IV Q8HR [facility] Stop: 05/28/16 00:59 Last Admin: 03/29/16 12:08 Dose: 100 mls/hr Insulin Aspart (Novolog Insulin Sliding Scale) 0 units SUBQ Q6HR [facility] PRN Reason: Protocol Stop: 05/25/16 17:59 Last Admin: 03/29/16 12:24 Dose: 2 units Lactobacillus Rhamnosus (Culturelle) 1 each PO DAILY [facility] Stop: 05/22/16 08:59 Last Admin: 03/29/16 09:05 Dose: Not Given Meclizine HCl (Antivert) 25 mg PO DAILY PRN PRN Reason: Nausea / Vomiting Stop: 05/08/16 21:37 Last Admin: 03/26/16 11:32 Dose: 25 mg Metoclopramide HCl (Reglan) 10 mg IVP Q8HR [facility] Stop: 05/23/16 12:59 Last Admin: 03/29/16 12:09 Dose: 10 mg Mirtazapine (Remeron) 7.5 mg PO HS [facility] PRN Reason: Protocol Stop: 05/09/16 20:59 Last Admin: 03/28/16 20:49 Dose: Not Given Miscellaneous (Vte Chemical Prophylaxis Screen/ Admission) 1 ea [facility] PRN PRN PRN Reason: PROTOCOL Stop: 05/10/16 17:12 Miscellaneous (Tpn Per Pharmacy) 1 ea [facility] DAILY [facility] Stop: 05/20/16 14:39 Miscellaneous (Probiotic Screen) 1 ea [facility] PRN PRN PRN Reason: PROTOCOL Stop: 05/21/16 14:39 Miscellaneous (Vancomycin Iv Per Pharmacy) 1 ea PRN PRN PRN Reason: PROTOCOL Stop: 05/25/16 11:26 Ondansetron HCl (Zofran) 4 mg IV Q8H PRN PRN Reason: Nausea / Vomiting Stop: 05/08/16 21:37 Last Admin: 03/21/16 20:01 Dose: 4 mg Quetiapine Fumarate (Seroquel) 100 mg PO QPM [facility] PRN Reason: Protocol Stop: 05/09/16 16:59 Last Admin: 03/28/16 17:26 Dose: Not Given Tamsulosin HCl (Flomax) 0.4 mg PO DAILY [facility] Stop: 05/09/16 08:59 Last Admin: 03/29/16 09:12 Dose: Not Given General: no acute distress, well developed, well nourished HEENT: atraumatic, normocephalic, PERRLA, EOMI Neck: supple, tracheostomy, no thyromegaly, no lymphadenopathy Cardiovascular: S1S2, regular Lungs: clear to auscultation bilaterally, clear to percussion Abdomen: soft, tender, distended Extremities: other (colostomy - LLQ.), no cyanosis, no clubbing, no edema Neurological: awake, alert, oriented - Procedures Procedures: Procedures Procedure Code Date APPENDECTOMY ADD-ON 67300 03/10/16 BIOPSY OF BOWEL 97186 03/10/16 BYPASS DESCENDING COLON TO CUTANEOUS, OPEN APPROACH [id number] 03/10/16 COLOSTOMY 00210 03/10/16 EGD BIOPSY SINGLE/MULTIPLE 17414 03/10/16 EXCISION OF ILEUM, OPEN APPROACH [id number] 03/10/16 EXCISION OF LARGE INTESTINE, PERCUTANEOUS APPROACH, DIAGN [id number] 03/10/16 EXCISION OF STOMACH, ENDO, DIAGN [id number] 03/10/16 FREEING OF BOWEL ADHESION 75096 03/10/16 GROUP PSYCHOTHERAPY 91174 06/08/03 INDIVID PSYCHOTHERAP NEC 94.39 06/08/03 OTHER GROUP THERAPY 94.44 06/08/03 RELEASE ILEUM, OPEN APPROACH [id number] 03/10/16 REMOVAL OF SMALL INTESTINE 33840 03/10/16 RESECTION OF APPENDIX, OPEN APPROACH [id number] 03/10/16 Infectious Disease Assmt/Plan - Problem List Patient Problems: All Active Problems BLOOD CLOT IN STOOL (Acute) - Assessment Assessment: Impression: 1. Sepsis, fever and leukocytosis peritinitis. SBO, Bowel perforation. 2. Peritonitis. 3. GI Bleed 2/2 #2. 4. Dementia. 5. History of hypertension. 6. s/p colectomy and colostomy. 7. Intraabdominal mass? colon CA. associated colitis. 8. Suspect ileus versus SBO. RECOMMENDATIONS: Continue vanco IV and meropenem.
[2016-03-29] MEDS: AMINO ACIDS IV SCH (16:43)
[2016-03-29] MEDS: DEXT IV SCH (16:43)
[2016-03-29] MEDS: INTRALIPIDS IV SCH (16:43)
[2016-03-30] MEDS: INSULIN ASPART SLIDING SCALE 100 UNITS/ML UNIT SUBQ SCH ×4 (00:40→17:40)
[2016-03-30] MEDS: Pantoprazole 80 MG in Sodium Chloride 0.9% 100 ML IV SCH ×2 (02:56→14:09)
[2016-03-30] MEDS: Albuterol Nebulizer 2.5mg/3mL HHN SCH ×6 (03:26→22:58)
--- NOTE | 2016-03-30 04:26 | Infectious Disease Prog Note ---
Infectious Disease Subjective - Review of Systems Service Date: 03/30/16 Subjective: On NGT suction, fever is better, abdomen is softer. Has developed low grade fevers y'day. Infectious Disease Objective - Results Result Diagrams: 03/29/16 05:00 03/29/16 12:20 Recent Labs: Laboratory Last Values WBC 13.9 Th/cmm (4.8-10.8) H D 03/29/16 05:00 RBC 2.88 Mil/cmm (3.80-5.80) L 03/29/16 05:00 Hgb 8.0 gm/dL (12.6-17.4) L D 03/29/16 05:00 Hct 23.5 % (39.0-49.0) L* D 03/29/16 05:00 MCV 81.6 fl (80-99) 03/29/16 05:00 MCH 27.8 pg (27.0-31.0) 03/29/16 05:00 MCHC Differential 34.1 pg (28.0-36.0) 03/29/16 05:00 RDW 20.2 % (11.5-20.0) H 03/29/16 05:00 Plt Count 359 Th/cmm (150-400) 03/29/16 05:00 MPV 8.4 fl 03/29/16 05:00 Neutrophils % 66.8 % (40.0-80.0) 03/17/16 06:19 Band Neutrophils % 3 % (0-10) 03/29/16 05:00 Lymphocytes % 12.9 % (20.0-50.0) L 03/17/16 06:19 Monocytes % 8.2 % (2.0-10.0) 03/17/16 06:19 Eosinophils % 11.8 % (0.0-5.0) H 03/17/16 06:19 Basophils % 0.3 % (0.0-2.0) 03/17/16 06:19 Neutrophils (Manual) 77 % (40-80) 03/29/16 05:00 Lymphocytes 8 % (20-50) L 03/29/16 05:00 Monocytes 9 % (2-10) 03/29/16 05:00 Eosinophils 2 % (0-5) 03/29/16 05:00 Basophils 1 % (0-3) 03/12/16 08:00 Metamyelocytes 1 % (0-0) H 03/29/16 05:00 Platelet Estimate ADEQUATE (NORMAL) 03/29/16 05:00 Platelet Morphology NORMAL (NORMAL) 03/29/16 05:00 Polychromasia 1+ 03/24/16 06:45 Anisocytosis 1+ 03/29/16 05:00 Microcytosis 1+ 03/21/16 06:19 RBC Morph Micro Appear ABNORMAL (NORMAL) 03/29/16 05:00 PT 11.4 SECONDS (9.5-11.5) 03/24/16 20:04 INR 1.14 (0.5-1.4) 03/24/16 20:04 PTT (Actin FS) 30.2 SECONDS (26.0-38.0) 03/24/16 20:04 Specimen Source Arterial 03/21/16 16:45 Sample Site Right Radial 03/21/16 16:45 pH 7.37 (7.35-7.45) 03/21/16 16:45 pCO2 40.0 mmHg (35.0-45.0) 03/21/16 16:45 pO2 85.0 mmHg (80.0-100.0) 03/21/16 16:45 HCO3 23.1 mmol/L (20.0-26.0) 03/21/16 16:45 Base Excess -2.0 mmol/L (-3.0-3.0) 03/21/16 16:45 O2 Saturation 96.0 % (92.0-100.0) 03/21/16 16:45 Galo Test YES 03/21/16 16:45 Vent Rate NA 03/21/16 16:45 Inspired O2 40 03/21/16 16:45 Tidal Volume NA 03/21/16 16:45 PEEP NA 03/21/16 16:45 Pressure (ins/psv/peep) NA 03/21/16 16:45 Critical Value E.HERNANDEZ 03/21/16 16:45 Sodium 142 mEq/L (136-145) 03/29/16 12:20 Potassium 3.6 mEq/L (3.5-5.1) 03/29/16 12:20 Chloride 114 mEq/L (98-107) H 03/29/16 12:20 Carbon Dioxide 21.9 mEq/L (21.0-31.0) 03/29/16 12:20 Anion Gap 9.7 (7.0-16.0) 03/29/16 12:20 BUN 25 mg/dL (7-25) 03/29/16 12:20 Creatinine 1.1 mg/dL (0.7-1.3) 03/29/16 12:20 Est GFR ( Amer) > 60.0 ml/min (>90) 03/29/16 12:20 Est GFR (Non-Af Amer) > 60.0 ml/min 03/29/16 12:20 BUN/Creatinine Ratio 22.7 03/29/16 12:20 Glucose 149 mg/dL (70-105) H 03/29/16 12:20 POC Glucose 107 MG/DL (70 - 105) H 03/29/16 23:57 Hemoglobin A1c % 5.1 % (4.0-6.0) 03/26/16 06:10 Whole Bld Lactic Acid 1.80 mmol/L (0.60-2.00) 03/26/16 06:10 Calcium 8.6 mg/dL (8.6-10.3) 03/29/16 12:20 Phosphorus 2.7 mg/dL (2.5-5.0) 03/29/16 05:00 Magnesium 2.3 mg/dL (1.9-2.7) 03/29/16 05:00 Ferritin 136 ng/mL (30-400) 03/19/16 07:40 Total Bilirubin 0.4 mg/dL (0.3-1.0) 03/29/16 12:20 AST 11 U/L (13-39) L 03/29/16 12:20 ALT 5 U/L (7-52) L 03/29/16 12:20 Alkaline Phosphatase 49 U/L (34-104) 03/29/16 12:20 Ammonia 32 umol/L (16-53) 03/29/16 05:00 B-Natriuretic Peptide 17.5 pg/mL (5.0-100.0) 03/29/16 05:00 Total Protein 6.2 gm/dL (6.0-8.3) 03/29/16 12:20 Albumin 2.5 gm/dL (4.2-5.5) L 03/29/16 12:20 Globulin 3.7 gm/dL 03/29/16 12:20 Albumin/Globulin Ratio 0.7 (1.0-1.8) L 03/29/16 12:20 Prealbumin 11 mg/dL (10-36) 03/25/16 05:15 Triglycerides 63 mg/dL (<150) 03/25/16 05:15 Cholesterol 109 mg/dL (<200) 03/25/16 05:15 Carcinoembryonic Ag 2.7 ng/mL (0.0-4.7) 03/18/16 06:19 Vitamin B12 389 pg/mL (211-946) 03/10/16 04:30 Folic Acid 13.3 ng/mL (>3.0) 03/10/16 04:30 TSH 2.57 uIU/ml (0.34-5.60) 03/10/16 04:30 Urine Source CATH 03/13/16 16:00 Urine Color YELLOW 03/13/16 16:00 Urine Clarity CLEAR (CLEAR) 03/13/16 16:00 Urine pH 5.5 03/13/16 16:00 Ur Specific [place] 1.010 (1.005-1.030) 03/13/16 16:00 Urine Protein NEGATIVE mg/dL (NEGATIVE) 03/13/16 16:00 Urine Glucose (UA) NEGATIVE mg/dL (NEGATIVE) 03/13/16 16:00 Urine Ketones NEGATIVE mg/dL (NEGATIVE) 03/13/16 16:00 Urine Blood LARGE (NEGATIVE) H 03/13/16 16:00 Urine Nitrate NEGATIVE (NEGATIVE) 03/13/16 16:00 Urine Bilirubin NEGATIVE (NEGATIVE) 03/13/16 16:00 Urine Urobilinogen 1.0 E.U./dL (0.2 - 1.0) 03/13/16 16:00 Ur Leukocyte Esterase TRACE (NEGATIVE) H 03/13/16 16:00 Urine RBC 10-25 /hpf (0-5) H 03/13/16 16:00 Urine WBC 6-10 /hpf (0-5) H 03/13/16 16:00 Ur Epithelial Cells FEW /lpf (FEW) 03/13/16 16:00 Urine Bacteria OCCASIONAL /hpf (NONE SEEN) 03/13/16 16:00 Vancomycin Trough 13.5 ug/mL (10-20) 03/28/16 08:30 Blood Type B POSITIVE 03/29/16 09:15 Antibody Screen NEGATIVE 03/29/16 09:15 Crossmatch See Detail 03/29/16 09:15 - Physical Exam Vitals and I&O: Vital Signs Temp 99.6 F 03/30/16 00:00 Pulse 99 03/30/16 03:26 Resp 16 03/30/16 03:26 BP 110/52 03/30/16 01:57 Pulse Ox 100 03/30/16 03:26 Intake & Output 03/29/16 03/29/16 03/30/16 06:59 18:59 06:59 Intake Total 1130 2582.500 100 Output Total 1650 1650 Balance -520 932.500 100 Weight (lbs) 61.235 kg Intake: Intake, IV Amount 650 1852.500 100 Amino Acids 5%/Dext 25% 1 1002.667 ,000 ml Intralipids 20% 500 ml @ 40 mls/hr IV . Q24H [facility] Rx#:[id number] Erythromycin Lact 500 mg 250 250 In Sodium Chloride 0.9% 250 ml @ 250 mls/hr IV Q12HR [facility] Rx#:[id number] Meropenem 1 gm In Sodium 100 100 Chloride 0.9% 100 ml @ 100 mls/hr IV Q12HR [facility] Rx#:[id number] Pantoprazole 80 mg In 200 49.833 100 Sodium Chloride 0.9% 100 ml @ 10 mls/hr IV Q10H [facility] Rx#:[id number] Vancomycin HCl 1.25 gm In 250 Sodium Chloride 0.9% 250 ml @ 165 mls/hr IV Q24H [facility] Rx#:[id number] metroNIDAZOLE 500mg/NS 100 200 100mL 500 mg In 100 ml @ 100 mls/hr IV Q8HR [facility] Rx #:[id number] Oral 0 TPN/PPN 480 480 Blood Product 250 Output: Gastric Drainage 1000 Urine 650 450 Other 1200 Other: # Bowel Movements 0 Stool Characteristics Soft Brown Active Medications: Current Medications Acetaminophen (Tylenol) 650 mg PO Q6HR PRN PRN Reason: PAIN OR TEMP >100 Stop: 05/08/16 21:33 Last Admin: 03/26/16 11:31 Dose: 650 mg Acetaminophen (Tylenol 650mg Supp) 650 mg RC Q6H PRN PRN Reason: Fever > 101 Stop: 05/28/16 12:49 Last Admin: 03/29/16 16:42 Dose: 650 mg Acetaminophen (Tylenol 650mg Supp) 650 mg RC Q4H PRN PRN Reason: Fever > 101 Stop: 05/28/16 12:55 Acetaminophen/Codeine Phosphate (Tylenol W/Codeine #3) 1 tab PO Q4HR PRN PRN Reason: PAIN Stop: 05/08/16 21:33 Al Hydrox/Mg Hydrox/Simethicone (Maalox) 30 ml PO Q4HR PRN PRN Reason: Indigestion Stop: 05/08/16 21:33 Albuterol Sulfate (Albuterol 2.5mg/3ml Neb Ud) 2.5 mg IH Q2HR PRN PRN Reason: Shortness of Breath or Wheeze Stop: 05/08/16 21:37 Albuterol Sulfate (Albuterol 2.5mg/3ml Neb Ud) 2.5 mg HHN Q4HRT [facility] Stop: 05/20/16 18:59 Last Admin: 03/30/16 03:26 Dose: 2.5 mg Donepezil HCl (Aricept) 10 mg PO HS [facility] Stop: 05/09/16 20:59 Last Admin: 03/29/16 21:12 Dose: Not Given Enoxaparin Sodium (Lovenox) 30 mg SUBQ DAILY [facility] Stop: 05/28/16 14:59 Last Admin: 03/29/16 17:39 Dose: Not Given Pantoprazole Sodium 80 mg/ (Sodium Chloride) 100 mls @ 10 mls/hr IV Q10H [facility] Stop: 05/08/16 21:44 Last Admin: 03/30/16 02:56 Dose: 10 mls/hr Dextrose/Sodium Chloride (D5-0.45ns) 1,000 mls @ 40 mls/hr IV .Q24H [facility] Stop: 05/18/16 12:59 Last Admin: 03/29/16 09:08 Dose: 40 mls/hr Norepinephrine Bitartrate 4 mg (/ Dextrose) 254 mls @ 15.24 mls/hr IV TITR PRN ; Protocol; 4 MCG/MIN PRN Reason: BP MAINTENANCE (PER PROTOCOL) Stop: 05/20/16 11:23 Last Titration: 03/21/16 14:45 Dose: 0 mcg/min, 0 mls/hr Amino Acids/ Fat Emulsion (Intravenous) 1,500 mls @ 40 mls/hr IV .Q24H [facility] Stop: 05/27/16 15:59 Last Admin: 03/29/16 16:43 Dose: 40 mls/hr Vancomycin HCl 1.25 gm/ Sodium (Chloride) 250 mls @ 165 mls/hr IV Q24H [facility] Stop: 05/28/16 07:59 Last Infusion: 03/29/16 10:31 Dose: Infused Metronidazole (Flagyl) 500 mg in 100 mls @ 100 mls/hr IV Q8HR [facility] Stop: 05/28/16 00:59 Last Admin: 03/29/16 21:05 Dose: 100 mls/hr Insulin Aspart (Novolog Insulin Sliding Scale) 0 units SUBQ Q6HR [facility] PRN Reason: Protocol Stop: 05/25/16 17:59 Last Admin: 03/30/16 00:40 Dose: Not Given Lactobacillus Rhamnosus (Culturelle) 1 each PO DAILY [facility] Stop: 05/22/16 08:59 Last Admin: 03/29/16 09:05 Dose: Not Given Meclizine HCl (Antivert) 25 mg PO DAILY PRN PRN Reason: Nausea / Vomiting Stop: 05/08/16 21:37 Last Admin: 03/26/16 11:32 Dose: 25 mg Metoclopramide HCl (Reglan) 10 mg IVP Q8HR [facility] Stop: 05/23/16 12:59 Last Admin: 03/29/16 21:05 Dose: 10 mg Mirtazapine (Remeron) 7.5 mg PO HS [facility] PRN Reason: Protocol Stop: 05/09/16 20:59 Last Admin: 03/29/16 21:12 Dose: Not Given Miscellaneous (Vte Chemical Prophylaxis Screen/ Admission) 1 ea [facility] PRN PRN PRN Reason: PROTOCOL Stop: 05/10/16 17:12 Miscellaneous (Tpn Per Pharmacy) 1 ea [facility] DAILY [facility] Stop: 05/20/16 14:39 Miscellaneous (Probiotic Screen) 1 ea [facility] PRN PRN PRN Reason: PROTOCOL Stop: 05/21/16 14:39 Miscellaneous (Vancomycin Iv Per Pharmacy) 1 ea [facility] PRN PRN PRN Reason: PROTOCOL Stop: 05/25/16 11:26 Ondansetron HCl (Zofran) 4 mg IV Q8H PRN PRN Reason: Nausea / Vomiting Stop: 05/08/16 21:37 Last Admin: 03/21/16 20:01 Dose: 4 mg Quetiapine Fumarate (Seroquel) 100 mg PO QPM [facility] PRN Reason: Protocol Stop: 05/09/16 16:59 Last Admin: 03/29/16 17:36 Dose: Not Given Tamsulosin HCl (Flomax) 0.4 mg PO DAILY [facility] Stop: 05/09/16 08:59 Last Admin: 03/29/16 09:12 Dose: Not Given General: no acute distress, well developed, well nourished HEENT: atraumatic, normocephalic, PERRLA, EOMI, moist mucous membrane Neck: supple Cardiovascular: S1S2, regular Lungs: clear to auscultation bilaterally, clear to percussion Abdomen: soft, tender, distended, bowel sounds, obese (surgical incision intact. colostomy site ok.) Extremities: no cyanosis, no clubbing, no edema - Procedures Procedures: Procedures Procedure Code Date APPENDECTOMY ADD-ON 80561 03/10/16 BIOPSY OF BOWEL 97702 03/10/16 BYPASS DESCENDING COLON TO CUTANEOUS, OPEN APPROACH [id number] 03/10/16 COLOSTOMY 34197 03/10/16 EGD BIOPSY SINGLE/MULTIPLE 04918 03/10/16 EXCISION OF ILEUM, OPEN APPROACH [id number] 03/10/16 EXCISION OF LARGE INTESTINE, PERCUTANEOUS APPROACH, DIAGN [id number] 03/10/16 EXCISION OF STOMACH, ENDO, DIAGN [id number] 03/10/16 FREEING OF BOWEL ADHESION 82010 03/10/16 GROUP PSYCHOTHERAPY 76019 06/08/03 INDIVID PSYCHOTHERAP NEC 94.39 06/08/03 OTHER GROUP THERAPY 94.44 06/08/03 RELEASE ILEUM, OPEN APPROACH [id number] 03/10/16 REMOVAL OF SMALL INTESTINE 97547 03/10/16 RESECTION OF APPENDIX, OPEN APPROACH [id number] 03/10/16 Infectious Disease Assmt/Plan - Problem List Patient Problems: All Active Problems BLOOD CLOT IN STOOL (Acute) - Assessment Assessment: Impression: 1. Sepsis, fever and leukocytosis peritinitis. SBO, Bowel perforation. 2. Peritonitis. 3. GI Bleed resolved. 4. Dementia. 5. History of hypertension. 6. s/p colectomy and colostomy. 7. Intraabdominal mass? colon CA. associated colitis. 8. Suspect ileus versus SBO. RECOMMENDATIONS: Continue vanco IV and meropenem.
[2016-03-30] MEDS: Metoclopramide 5 mg/mL 2mL Vial IVP SCH ×3 (05:17→22:04)
[2016-03-30] MEDS: metroNIDAZOLE 500mg/NS 100mL 500 MG/100 ML BAG IV SCH ×3 (05:18→22:03)
[2016-03-30 05:21] LABS: % BASOPHILS 0.3 % (0.0-2.0); % EOSINOPHILS 3.6 % (0.0-5.0); % LYMPHOCYTES 7.2 % (20.0-50.0); % MONOCYTES 9.7 % (2.0-10.0); % NEUTROPHILS 79.2 % (40.0-80.0); MEAN CELL VOLUME 82.3 fl (80-99); MEAN CORPUSCULAR HEMOGLOBIN 27.2 pg (27.0-31.0); MEAN PLATELET VOLUME 7.9 fl; NEUTROPHILE ABSOLUTE 12.3 Th/cmm (1.8-8.0); PLATELET COUNT 381 Th/cmm (150-400); RED BLOOD COUNT 3.32 Mil/cmm (3.80-5.80); RED CELL DISTRIBUTION WIDTH 18.6 % (11.5-20.0); WHITE BLOOD COUNT 15.5 Th/cmm (4.8-10.8)
[2016-03-30 05:28] LABS: HEMATOCRIT 27.4 % (39.0-49.0)
[2016-03-30 06:39] LABS: ALB/GLOB RATIO 0.7 (1.0-1.8); ALKALINE PHOSPHATASE 53 U/L (34-104); BILIRUBIN,TOTAL 0.5 mg/dL (0.3-1.0); BUN - UREA NITROGEN 20 mg/dL (7-25); BUN/CREATININE RATIO 18.2; CALCIUM SERUM 8.9 mg/dL (8.6-10.3); CARBON DIOXIDE 22.4 mEq/L (21.0-31.0); CHLORIDE 114 mEq/L (98-107); CREATININE - SERUM 1.1 mg/dL (0.7-1.3); GLUCOSE 123 mg/dL (70-105); POTASSIUM SERUM 3.4 mEq/L (3.5-5.1); SGOT 11 U/L (13-39); SGPT/ALT 6 U/L (7-52); SODIUM SERUM 142 mEq/L (136-145)
[2016-03-30] MEDS: Lactobacillus Rhamnosus 10 Billion CFU Capsule PO SCH (08:37)
--- NOTE | 2016-03-30 10:43 | Diagnostic Imaging Report ---
Portable chest x-ray HISTORY: Shortness of breath, nasogastric tube placement Allowing for portable technique in a poor inspiration, the heart size is normal. No focal pulmonary processes. A nasogastric tube projects over the stomach. A vascular catheter tip is in the region of the superior vena cava. IMPRESSION: 1. No acute pulmonary processes 2. Line and tube placements as noted above
--- NOTE | 2016-03-30 11:12 | Internal Medicine Prog Note ---
Internal Medicine Subjective - Subjective Patient seen and examined:: with staff, chart reviewed Patient is:: awake, verbal, interactive Patient Complaints of:: congestion Per staff patient is:: no adverse event, confused, other (ngt to lis) Internal Medicine Objective - Results Result Diagrams: 03/30/16 04:42 03/30/16 04:42 Recent Labs: Laboratory Last Values WBC 15.5 Th/cmm (4.8-10.8) H 03/30/16 04:42 RBC 3.32 Mil/cmm (3.80-5.80) L 03/30/16 04:42 Hgb 9.0 gm/dL (12.6-17.4) L 03/30/16 04:42 Hct 27.4 % (39.0-49.0) L D 03/30/16 04:42 MCV 82.3 fl (80-99) 03/30/16 04:42 MCH 27.2 pg (27.0-31.0) 03/30/16 04:42 MCHC Differential 33.0 pg (28.0-36.0) 03/30/16 04:42 RDW 18.6 % (11.5-20.0) 03/30/16 04:42 Plt Count 381 Th/cmm (150-400) 03/30/16 04:42 MPV 7.9 fl 03/30/16 04:42 Neutrophils % 79.2 % (40.0-80.0) 03/30/16 04:42 Band Neutrophils % 3 % (0-10) 03/29/16 05:00 Lymphocytes % 7.2 % (20.0-50.0) L 03/30/16 04:42 Monocytes % 9.7 % (2.0-10.0) 03/30/16 04:42 Eosinophils % 3.6 % (0.0-5.0) 03/30/16 04:42 Basophils % 0.3 % (0.0-2.0) 03/30/16 04:42 Neutrophils (Manual) 77 % (40-80) 03/29/16 05:00 Lymphocytes 8 % (20-50) L 03/29/16 05:00 Monocytes 9 % (2-10) 03/29/16 05:00 Eosinophils 2 % (0-5) 03/29/16 05:00 Basophils 1 % (0-3) 03/12/16 08:00 Metamyelocytes 1 % (0-0) H 03/29/16 05:00 Platelet Estimate ADEQUATE (NORMAL) 03/29/16 05:00 Platelet Morphology NORMAL (NORMAL) 03/29/16 05:00 Polychromasia 1+ 03/24/16 06:45 Anisocytosis 1+ 03/29/16 05:00 Microcytosis 1+ 03/21/16 06:19 RBC Morph Micro Appear ABNORMAL (NORMAL) 03/29/16 05:00 PT 11.4 SECONDS (9.5-11.5) 03/24/16 20:04 INR 1.14 (0.5-1.4) 03/24/16 20:04 PTT (Actin FS) 30.2 SECONDS (26.0-38.0) 03/24/16 20:04 Specimen Source Arterial 03/21/16 16:45 Sample Site Right Radial 03/21/16 16:45 pH 7.37 (7.35-7.45) 03/21/16 16:45 pCO2 40.0 mmHg (35.0-45.0) 03/21/16 16:45 pO2 85.0 mmHg (80.0-100.0) 03/21/16 16:45 HCO3 23.1 mmol/L (20.0-26.0) 03/21/16 16:45 Base Excess -2.0 mmol/L (-3.0-3.0) 03/21/16 16:45 O2 Saturation 96.0 % (92.0-100.0) 03/21/16 16:45 Galo Test YES 03/21/16 16:45 Vent Rate NA 03/21/16 16:45 Inspired O2 40 03/21/16 16:45 Tidal Volume NA 03/21/16 16:45 PEEP NA 03/21/16 16:45 Pressure (ins/psv/peep) NA 03/21/16 16:45 Critical Value E.HERNANDEZ 03/21/16 16:45 Sodium 142 mEq/L (136-145) 03/30/16 04:42 Potassium 3.4 mEq/L (3.5-5.1) L 03/30/16 04:42 Chloride 114 mEq/L (98-107) H 03/30/16 04:42 Carbon Dioxide 22.4 mEq/L (21.0-31.0) 03/30/16 04:42 Anion Gap 9.0 (7.0-16.0) 03/30/16 04:42 BUN 20 mg/dL (7-25) 03/30/16 04:42 Creatinine 1.1 mg/dL (0.7-1.3) 03/30/16 04:42 Est GFR ( Amer) > 60.0 ml/min (>90) 03/30/16 04:42 Est GFR (Non-Af Amer) > 60.0 ml/min 03/30/16 04:42 BUN/Creatinine Ratio 18.2 03/30/16 04:42 Glucose 123 mg/dL (70-105) H 03/30/16 04:42 POC Glucose 132 MG/DL (70 - 105) H 03/30/16 05:34 Hemoglobin A1c % 5.1 % (4.0-6.0) 03/26/16 06:10 Whole Bld Lactic Acid 1.80 mmol/L (0.60-2.00) 03/26/16 06:10 Calcium 8.9 mg/dL (8.6-10.3) 03/30/16 04:42 Phosphorus 3.2 mg/dL (2.5-5.0) 03/30/16 04:42 Magnesium 2.3 mg/dL (1.9-2.7) 03/30/16 04:42 Ferritin 136 ng/mL (30-400) 03/19/16 07:40 Total Bilirubin 0.5 mg/dL (0.3-1.0) 03/30/16 04:42 AST 11 U/L (13-39) L 03/30/16 04:42 ALT 6 U/L (7-52) L 03/30/16 04:42 Alkaline Phosphatase 53 U/L (34-104) 03/30/16 04:42 Ammonia 32 umol/L (16-53) 03/29/16 05:00 B-Natriuretic Peptide 17.5 pg/mL (5.0-100.0) 03/29/16 05:00 Total Protein 6.7 gm/dL (6.0-8.3) 03/30/16 04:42 Albumin 2.7 gm/dL (4.2-5.5) L 03/30/16 04:42 Globulin 4.0 gm/dL 03/30/16 04:42 Albumin/Globulin Ratio 0.7 (1.0-1.8) L 03/30/16 04:42 Prealbumin 11 mg/dL (10-36) 03/25/16 05:15 Triglycerides 63 mg/dL (<150) 03/25/16 05:15 Cholesterol 109 mg/dL (<200) 03/25/16 05:15 Carcinoembryonic Ag 2.7 ng/mL (0.0-4.7) 03/18/16 06:19 Vitamin B12 389 pg/mL (211-946) 03/10/16 04:30 Folic Acid 13.3 ng/mL (>3.0) 03/10/16 04:30 TSH 2.57 uIU/ml (0.34-5.60) 03/10/16 04:30 Urine Source CATH 03/13/16 16:00 Urine Color YELLOW 03/13/16 16:00 Urine Clarity CLEAR (CLEAR) 03/13/16 16:00 Urine pH 5.5 03/13/16 16:00 Ur Specific [place] 1.010 (1.005-1.030) 03/13/16 16:00 Urine Protein NEGATIVE mg/dL (NEGATIVE) 03/13/16 16:00 Urine Glucose (UA) NEGATIVE mg/dL (NEGATIVE) 03/13/16 16:00 Urine Ketones NEGATIVE mg/dL (NEGATIVE) 03/13/16 16:00 Urine Blood LARGE (NEGATIVE) H 03/13/16 16:00 Urine Nitrate NEGATIVE (NEGATIVE) 03/13/16 16:00 Urine Bilirubin NEGATIVE (NEGATIVE) 03/13/16 16:00 Urine Urobilinogen 1.0 E.U./dL (0.2 - 1.0) 03/13/16 16:00 Ur Leukocyte Esterase TRACE (NEGATIVE) H 03/13/16 16:00 Urine RBC 10-25 /hpf (0-5) H 03/13/16 16:00 Urine WBC 6-10 /hpf (0-5) H 03/13/16 16:00 Ur Epithelial Cells FEW /lpf (FEW) 03/13/16 16:00 Urine Bacteria OCCASIONAL /hpf (NONE SEEN) 03/13/16 16:00 Vancomycin Trough 13.5 ug/mL (10-20) 03/28/16 08:30 Blood Type B POSITIVE 03/29/16 09:15 Antibody Screen NEGATIVE 03/29/16 09:15 Crossmatch See Detail 03/29/16 09:15 - Physical Exam Vitals and I&O: Vital Signs Temp 98.1 F 03/30/16 04:00 Pulse 105 03/30/16 11:00 Resp 23 03/30/16 11:00 BP 117/62 03/30/16 06:00 Pulse Ox 98 03/30/16 11:00 Intake & Output 03/29/16 03/30/16 03/30/16 18:59 06:59 18:59 Intake Total 2582.500 680 250 Output Total 1650 1850 Balance 932.500 -1170 250 Intake: Intake, IV Amount 1852.500 200 250 Amino Acids 5%/Dext 25% 1 1002.667 ,000 ml Intralipids 20% 500 ml @ 40 mls/hr IV . Q24H [facility] Rx#:[id number] Erythromycin Lact 500 mg 250 In Sodium Chloride 0.9% 250 ml @ 250 mls/hr IV Q12HR [facility] Rx#:[id number] Meropenem 1 gm In Sodium 100 Chloride 0.9% 100 ml @ 100 mls/hr IV Q12HR [facility] Rx#:[id number] Pantoprazole 80 mg In 49.833 100 Sodium Chloride 0.9% 100 ml @ 10 mls/hr IV Q10H [facility] Rx#:[id number] Vancomycin HCl 1.25 gm In 250 250 Sodium Chloride 0.9% 250 ml @ 165 mls/hr IV Q24H [facility] Rx#:[id number] metroNIDAZOLE 500mg/NS 200 100 100mL 500 mg In 100 ml @ 100 mls/hr IV Q8HR [facility] Rx #:[id number] Tube Feeding 480 TPN/PPN 480 Blood Product 250 Output: Gastric Drainage 1100 Urine 450 750 Stool 0 Other 1200 Active Medications: Current Medications Acetaminophen (Tylenol) 650 mg PO Q6HR PRN PRN Reason: PAIN OR TEMP >100 Stop: 05/08/16 21:33 Last Admin: 03/26/16 11:31 Dose: 650 mg Acetaminophen (Tylenol 650mg Supp) 650 mg RC Q6H PRN PRN Reason: Fever > 101 Stop: 05/28/16 12:49 Last Admin: 03/29/16 16:42 Dose: 650 mg Acetaminophen (Tylenol 650mg Supp) 650 mg RC Q4H PRN PRN Reason: Fever > 101 Stop: 05/28/16 12:55 Acetaminophen/Codeine Phosphate (Tylenol W/Codeine #3) 1 tab PO Q4HR PRN PRN Reason: PAIN Stop: 05/08/16 21:33 Al Hydrox/Mg Hydrox/Simethicone (Maalox) 30 ml PO Q4HR PRN PRN Reason: Indigestion Stop: 05/08/16 21:33 Albuterol Sulfate (Albuterol 2.5mg/3ml Neb Ud) 2.5 mg IH Q2HR PRN PRN Reason: Shortness of Breath or Wheeze Stop: 05/08/16 21:37 Albuterol Sulfate (Albuterol 2.5mg/3ml Neb Ud) 2.5 mg HHN Q4HRT [facility] Stop: 05/20/16 18:59 Last Admin: 03/30/16 11:00 Dose: Not Given Donepezil HCl (Aricept) 10 mg PO HS [facility] Stop: 05/09/16 20:59 Last Admin: 03/29/16 21:12 Dose: Not Given Enoxaparin Sodium (Lovenox) 30 mg SUBQ DAILY [facility] Stop: 05/28/16 14:59 Last Admin: 03/29/16 17:39 Dose: Not Given Pantoprazole Sodium 80 mg/ (Sodium Chloride) 100 mls @ 10 mls/hr IV Q10H [facility] Stop: 05/08/16 21:44 Last Admin: 03/30/16 02:56 Dose: 10 mls/hr Dextrose/Sodium Chloride (D5-0.45ns) 1,000 mls @ 40 mls/hr IV .Q24H [facility] Stop: 05/18/16 12:59 Last Admin: 03/29/16 09:08 Dose: 40 mls/hr Norepinephrine Bitartrate 4 mg (/ Dextrose) 254 mls @ 15.24 mls/hr IV TITR PRN ; Protocol; 4 MCG/MIN PRN Reason: BP MAINTENANCE (PER PROTOCOL) Stop: 05/20/16 11:23 Last Titration: 03/21/16 14:45 Dose: 0 mcg/min, 0 mls/hr Vancomycin HCl 1.25 gm/ Sodium (Chloride) 250 mls @ 165 mls/hr IV Q24H [facility] Stop: 05/28/16 07:59 Last Infusion: 03/30/16 10:30 Dose: Infused Metronidazole (Flagyl) 500 mg in 100 mls @ 100 mls/hr IV Q8HR [facility] Stop: 05/28/16 00:59 Last Admin: 03/30/16 05:18 Dose: 100 mls/hr Erythromycin Lactobionate 500 (mg/ Sodium Chloride) 250 mls @ 100 mls/hr IV Q12HR@1100,2300 [facility] Stop: 05/29/16 10:59 Meropenem 1 gm/ Sodium (Chloride) 100 mls @ 100 mls/hr IV Q12HR@0200,1400 [facility] Stop: 05/27/16 20:59 Multivitamins/Minerals 10 ml/Amino Acids/ Fat Emulsion Intravenous/ Sterile Water 1,680 mls @ 70 mls/hr IV .Q24H [facility] Stop: 05/27/16 15:59 Insulin Aspart (Novolog Insulin Sliding Scale) 0 units SUBQ Q6HR [facility] PRN Reason: Protocol Stop: 05/25/16 17:59 Last Admin: 03/30/16 05:36 Dose: Not Given Lactobacillus Rhamnosus (Culturelle) 1 each PO DAILY [facility] Stop: 05/22/16 08:59 Last Admin: 03/30/16 08:37 Dose: Not Given Meclizine HCl (Antivert) 25 mg PO DAILY PRN PRN Reason: Nausea / Vomiting Stop: 05/08/16 21:37 Last Admin: 03/26/16 11:32 Dose: 25 mg Metoclopramide HCl (Reglan) 10 mg IVP Q8HR [facility] Stop: 05/23/16 12:59 Last Admin: 03/30/16 05:17 Dose: 10 mg Mirtazapine (Remeron) 7.5 mg PO HS [facility] PRN Reason: Protocol Stop: 05/09/16 20:59 Last Admin: 03/29/16 21:12 Dose: Not Given Miscellaneous (Vte Chemical Prophylaxis Screen/ Admission) 1 ea PRN PRN PRN Reason: PROTOCOL Stop: 05/10/16 17:12 Miscellaneous (Tpn Per Pharmacy) 1 ea MC DAILY [facility] Stop: 05/20/16 14:39 Miscellaneous (Probiotic Screen) 1 ea MC PRN PRN PRN Reason: PROTOCOL Stop: 05/21/16 14:39 Miscellaneous (Vancomycin Iv Per Pharmacy) 1 ea PRN PRN PRN Reason: PROTOCOL Stop: 05/25/16 11:26 Ondansetron HCl (Zofran) 4 mg IV Q8H PRN PRN Reason: Nausea / Vomiting Stop: 05/08/16 21:37 Last Admin: 03/21/16 20:01 Dose: 4 mg Quetiapine Fumarate (Seroquel) 100 mg PO QPM [facility] PRN Reason: Protocol Stop: 05/09/16 16:59 Last Admin: 03/29/16 17:36 Dose: Not Given Tamsulosin HCl (Flomax) 0.4 mg PO DAILY [facility] Stop: 05/09/16 08:59 Last Admin: 03/30/16 08:38 Dose: Not Given General: lethargic HEENT: NC/AT, PERRLA Neck: Supple, No JVD Lungs: congested, rales Cardiovascular: RRR, Normal S1, Normal S2 Abdomen: soft non-tender, globular, positive bowel sound Extremities: excoriation Neurological: no change - Procedures Procedures: Procedures Procedure Code Date APPENDECTOMY ADD-ON 29305 03/10/16 BIOPSY OF BOWEL 41283 03/10/16 BYPASS DESCENDING COLON TO CUTANEOUS, OPEN APPROACH [id number] 03/10/16 COLOSTOMY 01143 03/10/16 EGD BIOPSY SINGLE/MULTIPLE 31478 03/10/16 EXCISION OF ILEUM, OPEN APPROACH [id number] 03/10/16 EXCISION OF LARGE INTESTINE, PERCUTANEOUS APPROACH, DIAGN [id number] 03/10/16 EXCISION OF STOMACH, ENDO, DIAGN [id number] 03/10/16 FREEING OF BOWEL ADHESION 39844 03/10/16 GROUP PSYCHOTHERAPY 63633 06/08/03 INDIVID PSYCHOTHERAP NEC 94.39 06/08/03 OTHER GROUP THERAPY 94.44 06/08/03 RELEASE ILEUM, OPEN APPROACH [id number] 03/10/16 REMOVAL OF SMALL INTESTINE 85172 03/10/16 RESECTION OF APPENDIX, OPEN APPROACH [id number] 03/10/16 Internal Medicine Assmt/Plan - Assessment Assessment: colon mass- adenoca s\p recection colostomy jonathan drain GI BLEED ANEMIA HYPOTENSION leukocytosis malnutrition afib-paroxysmal - Plan Plan: colostomy care picc line tpn cont on iv fluid abx check culture id and gi follow up dw rn check labs s\p sugical resection will place on therapeutic dose of lovenox
[2016-03-30] MEDS ORDERED: KCL 20mEq/100mL Premix 20 MEQ/100 ML PIGGYBACK IV ONE (11:13)
[2016-03-30] MEDS: SODIUM CHLORIDE 0.9% IV SCH (11:21)
[2016-03-30] MEDS: ERYTHROMYCIN LACT IV SCH (11:21)
[2016-03-30] MEDS: Enoxaparin 40 mg/0.4 mL 0.4mL Syr SUBQ SCH (13:01)
[2016-03-30] MEDS: Meropenem 1 GM in Sodium Chloride 0.9% 100 ML IV SCH (17:30)
[2016-03-31] MEDS: Pantoprazole 80 MG in Sodium Chloride 0.9% 100 ML IV SCH ×2 (00:21→19:38)
[2016-03-31] MEDS: SODIUM CHLORIDE 0.9% IV SCH ×3 (00:22→23:06)
[2016-03-31] MEDS: ERYTHROMYCIN LACT IV SCH ×3 (00:22→23:06)
[2016-03-31] MEDS: INSULIN ASPART SLIDING SCALE 100 UNITS/ML UNIT SUBQ SCH ×3 (01:28→19:16)
[2016-03-31] MEDS: INTRALIPIDS IV SCH ×2 (01:54→17:26)
[2016-03-31] MEDS: [UNRECOGNIZED DRUG - OTHER] IV SCH ×2 (01:54→17:26)
[2016-03-31] MEDS: MULTIVITAMIN IV SCH ×2 (01:54→17:26)
[2016-03-31] MEDS: AMINO ACIDS IV SCH ×2 (01:54→17:26)
[2016-03-31] MEDS: DEXT IV SCH ×2 (01:54→17:26)
[2016-03-31] MEDS: Albuterol Nebulizer 2.5mg/3mL HHN SCH ×6 (02:43→22:20)
[2016-03-31] MEDS: metroNIDAZOLE 500mg/NS 100mL 500 MG/100 ML BAG IV SCH ×3 (05:59→20:18)
[2016-03-31] MEDS: Metoclopramide 5 mg/mL 2mL Vial IVP SCH ×3 (06:00→20:18)
[2016-03-31] MEDS: D5-0.45NS 1,000 ML IV SCH (06:42)
[2016-03-31] MEDS: Meropenem 1 GM in Sodium Chloride 0.9% 100 ML IV SCH ×2 (06:45→14:59)
[2016-03-31 08:02] LABS: BUN - UREA NITROGEN 18 mg/dL (7-25); CARBON DIOXIDE 24.8 mEq/L (21.0-31.0); CHLORIDE 113 mEq/L (98-107); GLUCOSE 125 mg/dL (70-105); POTASSIUM SERUM 3.8 mEq/L (3.5-5.1); SODIUM SERUM 145 mEq/L (136-145)
[2016-03-31 08:03] LABS: ALB/GLOB RATIO 0.7 (1.0-1.8); ALKALINE PHOSPHATASE 54 U/L (34-104); BILIRUBIN,TOTAL 0.4 mg/dL (0.3-1.0); MAGNESIUM 2.1 mg/dL (1.9-2.7); PHOSPHOROUS 3.2 mg/dL (2.5-5.0); SGOT 10 U/L (13-39); SGPT/ALT 6 U/L (7-52)
[2016-03-31] MEDS: Enoxaparin 40 mg/0.4 mL 0.4mL Syr SUBQ SCH (09:26)
--- NOTE | 2016-03-31 09:55 | Internal Medicine Prog Note ---
Internal Medicine Subjective - Subjective Patient seen and examined:: with staff, chart reviewed Patient is:: asleep, interactive, denies CP, other (hr high per staff) Patient Complaints of:: congestion Per staff patient is:: agitated, combative, confused Internal Medicine Objective - Results Result Diagrams: 03/30/16 04:42 03/31/16 07:23 Recent Labs: Laboratory Last Values WBC 15.5 Th/cmm (4.8-10.8) H 03/30/16 04:42 RBC 3.32 Mil/cmm (3.80-5.80) L 03/30/16 04:42 Hgb 9.0 gm/dL (12.6-17.4) L 03/30/16 04:42 Hct 27.4 % (39.0-49.0) L D 03/30/16 04:42 MCV 82.3 fl (80-99) 03/30/16 04:42 MCH 27.2 pg (27.0-31.0) 03/30/16 04:42 MCHC Differential 33.0 pg (28.0-36.0) 03/30/16 04:42 RDW 18.6 % (11.5-20.0) 03/30/16 04:42 Plt Count 381 Th/cmm (150-400) 03/30/16 04:42 MPV 7.9 fl 03/30/16 04:42 Neutrophils % 79.2 % (40.0-80.0) 03/30/16 04:42 Band Neutrophils % 3 % (0-10) 03/29/16 05:00 Lymphocytes % 7.2 % (20.0-50.0) L 03/30/16 04:42 Monocytes % 9.7 % (2.0-10.0) 03/30/16 04:42 Eosinophils % 3.6 % (0.0-5.0) 03/30/16 04:42 Basophils % 0.3 % (0.0-2.0) 03/30/16 04:42 Neutrophils (Manual) 77 % (40-80) 03/29/16 05:00 Lymphocytes 8 % (20-50) L 03/29/16 05:00 Monocytes 9 % (2-10) 03/29/16 05:00 Eosinophils 2 % (0-5) 03/29/16 05:00 Basophils 1 % (0-3) 03/12/16 08:00 Metamyelocytes 1 % (0-0) H 03/29/16 05:00 Platelet Estimate ADEQUATE (NORMAL) 03/29/16 05:00 Platelet Morphology NORMAL (NORMAL) 03/29/16 05:00 Polychromasia 1+ 03/24/16 06:45 Anisocytosis 1+ 03/29/16 05:00 Microcytosis 1+ 03/21/16 06:19 RBC Morph Micro Appear ABNORMAL (NORMAL) 03/29/16 05:00 PT 11.4 SECONDS (9.5-11.5) 03/24/16 20:04 INR 1.14 (0.5-1.4) 03/24/16 20:04 PTT (Actin FS) 30.2 SECONDS (26.0-38.0) 03/24/16 20:04 Specimen Source Arterial 03/21/16 16:45 Sample Site Right Radial 03/21/16 16:45 pH 7.37 (7.35-7.45) 03/21/16 16:45 pCO2 40.0 mmHg (35.0-45.0) 03/21/16 16:45 pO2 85.0 mmHg (80.0-100.0) 03/21/16 16:45 HCO3 23.1 mmol/L (20.0-26.0) 03/21/16 16:45 Base Excess -2.0 mmol/L (-3.0-3.0) 03/21/16 16:45 O2 Saturation 96.0 % (92.0-100.0) 03/21/16 16:45 Galo Test YES 03/21/16 16:45 Vent Rate NA 03/21/16 16:45 Inspired O2 40 03/21/16 16:45 Tidal Volume NA 03/21/16 16:45 PEEP NA 03/21/16 16:45 Pressure (ins/psv/peep) NA 03/21/16 16:45 Critical Value E.HERNANDEZ 03/21/16 16:45 Sodium 145 mEq/L (136-145) 03/31/16 07:23 Potassium 3.8 mEq/L (3.5-5.1) 03/31/16 07:23 Chloride 113 mEq/L (98-107) H 03/31/16 07:23 Carbon Dioxide 24.8 mEq/L (21.0-31.0) 03/31/16 07:23 Anion Gap 11.0 (7.0-16.0) 03/31/16 07:23 BUN 18 mg/dL (7-25) 03/31/16 07:23 Creatinine 1.0 mg/dL (0.7-1.3) 03/31/16 07:23 Est GFR ( Amer) > 60.0 ml/min (>90) 03/31/16 07:23 Est GFR (Non-Af Amer) > 60.0 ml/min 03/31/16 07:23 BUN/Creatinine Ratio 18.0 03/31/16 07:23 Glucose 125 mg/dL (70-105) H 03/31/16 07:23 POC Glucose 146 MG/DL (70 - 105) H 03/31/16 01:26 Hemoglobin A1c % 5.1 % (4.0-6.0) 03/26/16 06:10 Whole Bld Lactic Acid 1.80 mmol/L (0.60-2.00) 03/26/16 06:10 Calcium 9.0 mg/dL (8.6-10.3) 03/31/16 07:23 Phosphorus 3.2 mg/dL (2.5-5.0) 03/31/16 07:23 Magnesium 2.1 mg/dL (1.9-2.7) 03/31/16 07:23 Ferritin 136 ng/mL (30-400) 03/19/16 07:40 Total Bilirubin 0.4 mg/dL (0.3-1.0) 03/31/16 07:23 AST 10 U/L (13-39) L 03/31/16 07:23 ALT 6 U/L (7-52) L 03/31/16 07:23 Alkaline Phosphatase 54 U/L (34-104) 03/31/16 07:23 Ammonia 32 umol/L (16-53) 03/29/16 05:00 B-Natriuretic Peptide 17.5 pg/mL (5.0-100.0) 03/29/16 05:00 Total Protein 6.7 gm/dL (6.0-8.3) 03/31/16 07:23 Albumin 2.7 gm/dL (4.2-5.5) L 03/31/16 07:23 Globulin 4.0 gm/dL 03/31/16 07:23 Albumin/Globulin Ratio 0.7 (1.0-1.8) L 03/31/16 07:23 Prealbumin 11 mg/dL (10-36) 03/25/16 05:15 Triglycerides 63 mg/dL (<150) 03/25/16 05:15 Cholesterol 109 mg/dL (<200) 03/25/16 05:15 Carcinoembryonic Ag 2.7 ng/mL (0.0-4.7) 03/18/16 06:19 Vitamin B12 389 pg/mL (211-946) 03/10/16 04:30 Folic Acid 13.3 ng/mL (>3.0) 03/10/16 04:30 TSH 2.57 uIU/ml (0.34-5.60) 03/10/16 04:30 Urine Source CATH 03/13/16 16:00 Urine Color YELLOW 03/13/16 16:00 Urine Clarity CLEAR (CLEAR) 03/13/16 16:00 Urine pH 5.5 03/13/16 16:00 Ur Specific [place] 1.010 (1.005-1.030) 03/13/16 16:00 Urine Protein NEGATIVE mg/dL (NEGATIVE) 03/13/16 16:00 Urine Glucose (UA) NEGATIVE mg/dL (NEGATIVE) 03/13/16 16:00 Urine Ketones NEGATIVE mg/dL (NEGATIVE) 03/13/16 16:00 Urine Blood LARGE (NEGATIVE) H 03/13/16 16:00 Urine Nitrate NEGATIVE (NEGATIVE) 03/13/16 16:00 Urine Bilirubin NEGATIVE (NEGATIVE) 03/13/16 16:00 Urine Urobilinogen 1.0 E.U./dL (0.2 - 1.0) 03/13/16 16:00 Ur Leukocyte Esterase TRACE (NEGATIVE) H 03/13/16 16:00 Urine RBC 10-25 /hpf (0-5) H 03/13/16 16:00 Urine WBC 6-10 /hpf (0-5) H 03/13/16 16:00 Ur Epithelial Cells FEW /lpf (FEW) 03/13/16 16:00 Urine Bacteria OCCASIONAL /hpf (NONE SEEN) 03/13/16 16:00 Vancomycin Trough 11.4 ug/mL (10-20) 03/31/16 07:23 Blood Type B POSITIVE 03/29/16 09:15 Antibody Screen NEGATIVE 03/29/16 09:15 Crossmatch See Detail 03/29/16 09:15 - Physical Exam Vitals and I&O: Vital Signs Temp 99 F 03/31/16 06:00 Pulse 94 03/31/16 07:28 Resp 30 03/31/16 07:28 BP 110/68 03/31/16 06:00 Pulse Ox 98 03/31/16 07:28 Intake & Output 03/30/16 03/31/16 03/31/16 18:59 06:59 18:59 Intake Total 1800 1040 Output Total 2250 900 Balance -450 140 Intake: Intake, IV Amount 1800 200 D5-0.45NS 1,000 ml @ 40 1000 mls/hr IV .Q24H [facility] Rx#: [id number] Erythromycin Lact 500 mg 250 In Sodium Chloride 0.9% 250 ml @ 100 mls/hr IV Q12HR@1100,2300 [facility] Rx#: [id number] Meropenem 1 gm In Sodium 100 Chloride 0.9% 100 ml @ 100 mls/hr IV Q12HR@0200, 1400 [facility] Rx#:[id number] Pantoprazole 80 mg In 100 100 Sodium Chloride 0.9% 100 ml @ 10 mls/hr IV Q10H [facility] Rx#:[id number] Vancomycin HCl 1.25 gm In 250 Sodium Chloride 0.9% 250 ml @ 165 mls/hr IV Q24H [facility] Rx#:[id number] metroNIDAZOLE 500mg/NS 100 100 100mL 500 mg In 100 ml @ 100 mls/hr IV Q8HR [facility] Rx #:[id number] Oral 0 0 Tube Feeding 0 TPN/PPN 840 Output: Gastric Drainage 1100 Urine 850 900 Stool 300 0 Other: Stool Characteristics Liquid Liquid Brown Brown Active Medications: Current Medications Acetaminophen (Tylenol) 650 mg PO Q6HR PRN PRN Reason: PAIN OR TEMP >100 Stop: 05/08/16 21:33 Last Admin: 03/26/16 11:31 Dose: 650 mg Acetaminophen (Tylenol 650mg Supp) 650 mg RC Q6H PRN PRN Reason: Fever > 101 Stop: 05/28/16 12:49 Last Admin: 03/29/16 16:42 Dose: 650 mg Acetaminophen (Tylenol 650mg Supp) 650 mg RC Q4H PRN PRN Reason: Fever > 101 Stop: 05/28/16 12:55 Acetaminophen/Codeine Phosphate (Tylenol W/Codeine #3) 1 tab PO Q4HR PRN PRN Reason: PAIN Stop: 05/08/16 21:33 Al Hydrox/Mg Hydrox/Simethicone (Maalox) 30 ml PO Q4HR PRN PRN Reason: Indigestion Stop: 05/08/16 21:33 Albuterol Sulfate (Albuterol 2.5mg/3ml Neb Ud) 2.5 mg IH Q2HR PRN PRN Reason: Shortness of Breath or Wheeze Stop: 05/08/16 21:37 Albuterol Sulfate (Albuterol 2.5mg/3ml Neb Ud) 2.5 mg HHN Q4HRT [facility] Stop: 05/20/16 18:59 Last Admin: 03/31/16 07:28 Dose: Not Given Donepezil HCl (Aricept) 10 mg PO HS [facility] Stop: 05/09/16 20:59 Last Admin: 03/30/16 22:02 Dose: Not Given Enoxaparin Sodium (Lovenox) 30 mg SUBQ DAILY [facility] Stop: 05/28/16 14:59 Last Admin: 03/31/16 09:26 Dose: 30 mg Pantoprazole Sodium 80 mg/ (Sodium Chloride) 100 mls @ 10 mls/hr IV Q10H [facility] Stop: 05/08/16 21:44 Last Admin: 03/31/16 00:21 Dose: 10 mls/hr Dextrose/Sodium Chloride (D5-0.45ns) 1,000 mls @ 40 mls/hr IV .Q24H [facility] Stop: 05/18/16 12:59 Last Admin: 03/31/16 06:42 Dose: 40 mls/hr Norepinephrine Bitartrate 4 mg (/ Dextrose) 254 mls @ 15.24 mls/hr IV TITR PRN ; Protocol; 4 MCG/MIN PRN Reason: BP MAINTENANCE (PER PROTOCOL) Stop: 05/20/16 11:23 Last Titration: 03/21/16 14:45 Dose: 0 mcg/min, 0 mls/hr Metronidazole (Flagyl) 500 mg in 100 mls @ 100 mls/hr IV Q8HR [facility] Stop: 05/28/16 00:59 Last Admin: 03/31/16 05:59 Dose: 100 mls/hr Erythromycin Lactobionate 500 (mg/ Sodium Chloride) 250 mls @ 100 mls/hr IV Q12HR@1100,2300 [facility] Stop: 05/29/16 10:59 Last Admin: 03/31/16 00:22 Dose: 100 mls/hr Meropenem 1 gm/ Sodium (Chloride) 100 mls @ 100 mls/hr IV Q12HR@0200,1400 [facility] Stop: 05/27/16 20:59 Last Admin: 03/31/16 06:45 Dose: 100 mls/hr Multivitamins/Minerals 10 ml/Amino Acids/ Fat Emulsion Intravenous/ Sterile Water 1,680 mls @ 70 mls/hr IV .Q24H [facility] Stop: 05/27/16 15:59 Last Admin: 03/31/16 01:54 Dose: 70 mls/hr Vancomycin HCl 1.5 gm/ Sodium (Chloride) 500 mls @ 250 mls/hr IV Q24H [facility] Stop: 05/31/16 09:59 Insulin Aspart (Novolog Insulin Sliding Scale) 0 units SUBQ Q6HR [facility] PRN Reason: Protocol Stop: 05/25/16 17:59 Last Admin: 03/31/16 01:28 Dose: Not Given Lactobacillus Rhamnosus (Culturelle) 1 each PO DAILY [facility] Stop: 05/22/16 08:59 Last Admin: 03/30/16 08:37 Dose: Not Given Meclizine HCl (Antivert) 25 mg PO DAILY PRN PRN Reason: Nausea / Vomiting Stop: 05/08/16 21:37 Last Admin: 03/26/16 11:32 Dose: 25 mg Metoclopramide HCl (Reglan) 10 mg IVP Q8HR [facility] Stop: 05/23/16 12:59 Last Admin: 03/31/16 06:00 Dose: 10 mg Mirtazapine (Remeron) 7.5 mg PO HS [facility] PRN Reason: Protocol Stop: 05/09/16 20:59 Last Admin: 03/30/16 22:03 Dose: Not Given Miscellaneous (Vte Chemical Prophylaxis Screen/ Admission) 1 ea MC PRN PRN PRN Reason: PROTOCOL Stop: 05/10/16 17:12 Miscellaneous (Tpn Per Pharmacy) 1 ea MC DAILY [facility] Stop: 05/20/16 14:39 Miscellaneous (Probiotic Screen) 1 ea MC PRN PRN PRN Reason: PROTOCOL Stop: 05/21/16 14:39 Miscellaneous (Vancomycin Iv Per Pharmacy) 1 ea [facility] PRN PRN PRN Reason: PROTOCOL Stop: 05/25/16 11:26 Ondansetron HCl (Zofran) 4 mg IV Q8H PRN PRN Reason: Nausea / Vomiting Stop: 05/08/16 21:37 Last Admin: 03/21/16 20:01 Dose: 4 mg Quetiapine Fumarate (Seroquel) 100 mg PO QPM [facility] PRN Reason: Protocol Stop: 05/09/16 16:59 Last Admin: 03/30/16 22:02 Dose: Not Given Tamsulosin HCl (Flomax) 0.4 mg PO DAILY [facility] Stop: 05/09/16 08:59 Last Admin: 03/30/16 08:38 Dose: Not Given General: lethargic, other (ngt on lis) HEENT: NC/AT, other (b temporal wasting) Neck: Supple, No JVD Lungs: congested, rales Cardiovascular: RRR, Normal S1, Normal S2 Abdomen: soft non-tender, positive bowel sound Extremities: excoriation, contracture Neurological: no change - Procedures Procedures: Procedures Procedure Code Date APPENDECTOMY ADD-ON 72725 03/10/16 BIOPSY OF BOWEL 43656 03/10/16 BYPASS DESCENDING COLON TO CUTANEOUS, OPEN APPROACH [id number] 03/10/16 COLOSTOMY 22100 03/10/16 EGD BIOPSY SINGLE/MULTIPLE 23350 03/10/16 EXCISION OF ILEUM, OPEN APPROACH [id number] 03/10/16 EXCISION OF LARGE INTESTINE, PERCUTANEOUS APPROACH, DIAGN [id number] 03/10/16 EXCISION OF STOMACH, ENDO, DIAGN [id number] 03/10/16 FREEING OF BOWEL ADHESION 88351 03/10/16 GROUP PSYCHOTHERAPY 06356 06/08/03 INDIVID PSYCHOTHERAP NEC 94.39 06/08/03 OTHER GROUP THERAPY 94.44 06/08/03 RELEASE ILEUM, OPEN APPROACH [id number] 03/10/16 REMOVAL OF SMALL INTESTINE 21702 03/10/16 RESECTION OF APPENDIX, OPEN APPROACH [id number] 03/10/16 Internal Medicine Assmt/Plan - Assessment Assessment: colon mass- adenoca s\p recection colostomy jonathan drain GI BLEED ANEMIA HYPOTENSION leukocytosis malnutrition afib-paroxysmal - Plan Plan: colostomy care picc line tpn cont on iv fluid abx check culture id and gi follow up dw rn check labs s\p sugical resection will place on therapeutic dose of lovenox
[2016-03-31] MEDS: Lactobacillus Rhamnosus 10 Billion CFU Capsule PO SCH (11:05)
[2016-04-01] MEDS: INSULIN ASPART SLIDING SCALE 100 UNITS/ML UNIT SUBQ SCH ×4 (00:04→17:04)
[2016-04-01] MEDS: Meropenem 1 GM in Sodium Chloride 0.9% 100 ML IV SCH ×2 (01:46→14:30)
[2016-04-01] MEDS: Albuterol Nebulizer 2.5mg/3mL HHN SCH ×6 (03:38→23:31)
[2016-04-01] MEDS: metroNIDAZOLE 500mg/NS 100mL 500 MG/100 ML BAG IV SCH ×3 (04:27→21:19)
[2016-04-01] MEDS: Metoclopramide 5 mg/mL 2mL Vial IVP SCH ×3 (04:28→21:18)
[2016-04-01 05:17] LABS: HEMATOCRIT 29.8 % (39.0-49.0); HEMOGLOBIN 9.9 gm/dL (12.6-17.4); MEAN CELL VOLUME 83.3 fl (80-99); MEAN CORPUSCULAR HEMOGLOBIN 27.7 pg (27.0-31.0); MEAN CORPUSCULAR HGB CONC 33.2 pg (28.0-36.0); MEAN PLATELET VOLUME 7.9 fl; PLATELET COUNT 423 Th/cmm (150-400); RED BLOOD COUNT 3.57 Mil/cmm (3.80-5.80); RED CELL DISTRIBUTION WIDTH 18.2 % (11.5-20.0)
[2016-04-01 05:24] LABS: WHITE BLOOD COUNT 26.3 Th/cmm (4.8-10.8)
[2016-04-01 05:30] LABS: ALB/GLOB RATIO 0.7 (1.0-1.8); ALKALINE PHOSPHATASE 56 U/L (34-104); BILIRUBIN,TOTAL 0.4 mg/dL (0.3-1.0); BUN - UREA NITROGEN 17 mg/dL (7-25); BUN/CREATININE RATIO 18.9; CALCIUM SERUM 9.1 mg/dL (8.6-10.3); CHLORIDE 111 mEq/L (98-107); CREATININE - SERUM 0.9 mg/dL (0.7-1.3); GLUCOSE 135 mg/dL (70-105); SGOT 10 U/L (13-39); SGPT/ALT 6 U/L (7-52); SODIUM SERUM 140 mEq/L (136-145)
[2016-04-01 06:03] LABS: PHOSPHOROUS 3.8 mg/dL (2.5-5.0)
[2016-04-01] MEDS: Pantoprazole 80 MG in Sodium Chloride 0.9% 100 ML IV SCH (06:10)
[2016-04-01] MEDS: D5-0.45NS 1,000 ML IV SCH (06:14)
[2016-04-01 06:59] LABS: ANISOCYTOSIS 1+; BAND NEUTROPHILE 3 % (0-10); EOSINOPHIL 3 % (0-5); NEUTROPHILS 82 % (40-80); PLATELET ESTIMATE INCREASED PLATELETS (NORMAL); PLATELET MORPHOLOGY NORMAL (NORMAL); TOTAL CELLS COUNTED 100
[2016-04-01] MEDS: Enoxaparin 40 mg/0.4 mL 0.4mL Syr SUBQ SCH (09:27)
[2016-04-01] MEDS: Vancomycin HCl 1.5 GM in Sodium Chloride 0.9% 500 ML IV SCH (10:17)
--- NOTE | 2016-04-01 10:53 | Diagnostic Imaging Report ---
Portable chest x-ray HISTORY: Shortness of breath Compared with prior exam of March 29, 2016, no focal pulmonary processes are seen. The heart size remains normal. IMPRESSION: 1. No change in the cardiopulmonary status with no focal processes.
[2016-04-01] MEDS: Lactobacillus Rhamnosus 10 Billion CFU Capsule PO SCH (11:26)
[2016-04-01] MEDS: ERYTHROMYCIN LACT IV SCH (11:39)
[2016-04-01] MEDS: SODIUM CHLORIDE 0.9% IV SCH (11:39)
--- NOTE | 2016-04-01 12:16 | Diagnostic Imaging Report ---
Pelvic ultrasound HISTORY: Pain, mass Sonographic sector images were obtained over the region of the urinary bladder. Exam is limited due to lack of patient cooperation and overlying dressings. The urinary bladder exhibits a normal contour. No intraluminal abnormalities are seen. No other abnormal masses or fluid collections seen within the pelvis. IMPRESSION: Negative examination
--- NOTE | 2016-04-01 12:58 | Internal Medicine Prog Note ---
Internal Medicine Subjective - Subjective Patient seen and examined:: with staff, chart reviewed Patient is:: awake, verbal, interactive Patient Complaints of:: congestion Per staff patient is:: confused Internal Medicine Objective - Results Result Diagrams: 04/01/16 04:48 04/01/16 04:48 Recent Labs: Laboratory Last Values WBC 26.3 Th/cmm (4.8-10.8) H* D 04/01/16 04:48 RBC 3.57 Mil/cmm (3.80-5.80) L 04/01/16 04:48 Hgb 9.9 gm/dL (12.6-17.4) L 04/01/16 04:48 Hct 29.8 % (39.0-49.0) L 04/01/16 04:48 MCV 83.3 fl (80-99) 04/01/16 04:48 MCH 27.7 pg (27.0-31.0) 04/01/16 04:48 MCHC Differential 33.2 pg (28.0-36.0) 04/01/16 04:48 RDW 18.2 % (11.5-20.0) 04/01/16 04:48 Plt Count 423 Th/cmm (150-400) H 04/01/16 04:48 MPV 7.9 fl 04/01/16 04:48 Neutrophils % 79.2 % (40.0-80.0) 03/30/16 04:42 Band Neutrophils % 3 % (0-10) 04/01/16 04:48 Lymphocytes % 7.2 % (20.0-50.0) L 03/30/16 04:42 Monocytes % 9.7 % (2.0-10.0) 03/30/16 04:42 Eosinophils % 3.6 % (0.0-5.0) 03/30/16 04:42 Basophils % 0.3 % (0.0-2.0) 03/30/16 04:42 Neutrophils (Manual) 82 % (40-80) H 04/01/16 04:48 Lymphocytes 5 % (20-50) L 04/01/16 04:48 Monocytes 7 % (2-10) 04/01/16 04:48 Eosinophils 3 % (0-5) 04/01/16 04:48 Basophils 1 % (0-3) 03/12/16 08:00 Metamyelocytes 1 % (0-0) H 03/29/16 05:00 Platelet Estimate INCREASED PLATELETS (NORMAL) 04/01/16 04:48 Platelet Morphology NORMAL (NORMAL) 04/01/16 04:48 Polychromasia 1+ 03/24/16 06:45 Anisocytosis 1+ 04/01/16 04:48 Microcytosis 1+ 03/21/16 06:19 RBC Morph Micro Appear ABNORMAL (NORMAL) 04/01/16 04:48 PT 11.4 SECONDS (9.5-11.5) 03/24/16 20:04 INR 1.14 (0.5-1.4) 03/24/16 20:04 PTT (Actin FS) 30.2 SECONDS (26.0-38.0) 03/24/16 20:04 Specimen Source Arterial 03/21/16 16:45 Sample Site Right Radial 03/21/16 16:45 pH 7.37 (7.35-7.45) 03/21/16 16:45 pCO2 40.0 mmHg (35.0-45.0) 03/21/16 16:45 pO2 85.0 mmHg (80.0-100.0) 03/21/16 16:45 HCO3 23.1 mmol/L (20.0-26.0) 03/21/16 16:45 Base Excess -2.0 mmol/L (-3.0-3.0) 03/21/16 16:45 O2 Saturation 96.0 % (92.0-100.0) 03/21/16 16:45 Galo Test YES 03/21/16 16:45 Vent Rate NA 03/21/16 16:45 Inspired O2 40 03/21/16 16:45 Tidal Volume NA 03/21/16 16:45 PEEP NA 03/21/16 16:45 Pressure (ins/psv/peep) NA 03/21/16 16:45 Critical Value E.HERNANDEZ 03/21/16 16:45 Sodium 140 mEq/L (136-145) 04/01/16 04:48 Potassium 4.0 mEq/L (3.5-5.1) 04/01/16 04:48 Chloride 111 mEq/L (98-107) H 04/01/16 04:48 Carbon Dioxide 25.0 mEq/L (21.0-31.0) 02/06/17 04:48 Anion Gap 8.0 (7.0-16.0) 04/01/16 04:48 BUN 17 mg/dL (7-25) 04/01/16 04:48 Creatinine 0.9 mg/dL (0.7-1.3) 04/01/16 04:48 Est GFR ( Amer) > 60.0 ml/min (>90) 04/01/16 04:48 Est GFR (Non-Af Amer) > 60.0 ml/min 04/01/16 04:48 BUN/Creatinine Ratio 18.9 04/01/16 04:48 Glucose 135 mg/dL (70-105) H 04/01/16 04:48 POC Glucose 118 MG/DL (70 - 105) H 04/01/16 05:53 Hemoglobin A1c % 5.1 % (4.0-6.0) 03/26/16 06:10 Whole Bld Lactic Acid 1.80 mmol/L (0.60-2.00) 03/26/16 06:10 Calcium 9.1 mg/dL (8.6-10.3) 04/01/16 04:48 Phosphorus 3.8 mg/dL (2.5-5.0) 04/01/16 04:48 Magnesium 2.0 mg/dL (1.9-2.7) 04/01/16 04:48 Ferritin 136 ng/mL (30-400) 03/19/16 07:40 Total Bilirubin 0.4 mg/dL (0.3-1.0) 04/01/16 04:48 AST 10 U/L (13-39) L 04/01/16 04:48 ALT 6 U/L (7-52) L 04/01/16 04:48 Alkaline Phosphatase 56 U/L (34-104) 04/01/16 04:48 Ammonia 32 umol/L (16-53) 03/29/16 05:00 B-Natriuretic Peptide 75.9 pg/mL (5.0-100.0) 04/01/16 04:48 Total Protein 6.9 gm/dL (6.0-8.3) 04/01/16 04:48 Albumin 2.8 gm/dL (4.2-5.5) L 04/01/16 04:48 Globulin 4.1 gm/dL 04/01/16 04:48 Albumin/Globulin Ratio 0.7 (1.0-1.8) L 04/01/16 04:48 Prealbumin 11 mg/dL (10-36) 03/25/16 05:15 Triglycerides 78 mg/dL (<150) 04/01/16 04:48 Cholesterol 61 mg/dL (<200) 04/01/16 04:48 Carcinoembryonic Ag 2.7 ng/mL (0.0-4.7) 03/18/16 06:19 Vitamin B12 389 pg/mL (211-946) 03/10/16 04:30 Folic Acid 13.3 ng/mL (>3.0) 03/10/16 04:30 TSH 2.57 uIU/ml (0.34-5.60) 03/10/16 04:30 Urine Source CATH 03/13/16 16:00 Urine Color YELLOW 03/13/16 16:00 Urine Clarity CLEAR (CLEAR) 03/13/16 16:00 Urine pH 5.5 03/13/16 16:00 Ur Specific [place] 1.010 (1.005-1.030) 03/13/16 16:00 Urine Protein NEGATIVE mg/dL (NEGATIVE) 03/13/16 16:00 Urine Glucose (UA) NEGATIVE mg/dL (NEGATIVE) 03/13/16 16:00 Urine Ketones NEGATIVE mg/dL (NEGATIVE) 03/13/16 16:00 Urine Blood LARGE (NEGATIVE) H 03/13/16 16:00 Urine Nitrate NEGATIVE (NEGATIVE) 03/13/16 16:00 Urine Bilirubin NEGATIVE (NEGATIVE) 03/13/16 16:00 Urine Urobilinogen 1.0 E.U./dL (0.2 - 1.0) 03/13/16 16:00 Ur Leukocyte Esterase TRACE (NEGATIVE) H 03/13/16 16:00 Urine RBC 10-25 /hpf (0-5) H 03/13/16 16:00 Urine WBC 6-10 /hpf (0-5) H 03/13/16 16:00 Ur Epithelial Cells FEW /lpf (FEW) 03/13/16 16:00 Urine Bacteria OCCASIONAL /hpf (NONE SEEN) 03/13/16 16:00 Vancomycin Trough 11.4 ug/mL (10-20) 03/31/16 07:23 Blood Type B POSITIVE 03/29/16 09:15 Antibody Screen NEGATIVE 03/29/16 09:15 Crossmatch See Detail 03/29/16 09:15 - Physical Exam Vitals and I&O: Vital Signs Temp 98.8 F 04/01/16 08:00 Pulse 98 04/01/16 11:29 Resp 19 04/01/16 11:29 BP 127/59 04/01/16 10:00 Pulse Ox 98 04/01/16 11:29 Intake & Output 03/31/16 04/01/16 04/01/16 18:59 06:59 18:59 Intake Total 2294.835 4466.333 Output Total 1500 Balance 7382.487 5530.333 Intake: Intake, IV Amount 0866.593 0739.333 D5-0.45NS 1,000 ml @ 40 941.333 mls/hr IV .Q24H [facility] Rx#: [id number] Erythromycin Lact 500 mg 250 250 In Sodium Chloride 0.9% 250 ml @ 100 mls/hr IV Q12HR@1100,2300 [facility] Rx#: [id number] Meropenem 1 gm In Sodium 200 100 Chloride 0.9% 100 ml @ 100 mls/hr IV Q12HR@0200, 1400 [facility] Rx#:[id number] Multivitamin Inj 10 ml In 1087.333 Amino Acids 5%/Dext 25% 1,000 ml In Intralipids 20% 200 ml In Water, Sterile 470 ml @ 70 mls/ hr IV .Q24H [facility] Rx#: [id number] Pantoprazole 80 mg In 100 100 Sodium Chloride 0.9% 100 ml @ 10 mls/hr IV Q10H [facility] Rx#:[id number] metroNIDAZOLE 500mg/NS 100 200 100mL 500 mg In 100 ml @ 100 mls/hr IV Q8HR [facility] Rx #:[id number] Oral 0 TPN/PPN 810 Other 100 Output: Gastric Drainage 700 Urine 500 Stool 300 Other: Stool Characteristics Soft Soft Soft Formed Formed Brown Brown Brown Active Medications: Current Medications Acetaminophen (Tylenol) 650 mg PO Q6HR PRN PRN Reason: PAIN OR TEMP >100 Stop: 05/08/16 21:33 Last Admin: 03/26/16 11:31 Dose: 650 mg Acetaminophen (Tylenol 650mg Supp) 650 mg RC Q6H PRN PRN Reason: Fever > 101 Stop: 05/28/16 12:49 Last Admin: 03/29/16 16:42 Dose: 650 mg Acetaminophen (Tylenol 650mg Supp) 650 mg RC Q4H PRN PRN Reason: Fever > 101 Stop: 05/28/16 12:55 Acetaminophen/Codeine Phosphate (Tylenol W/Codeine #3) 1 tab PO Q4HR PRN PRN Reason: PAIN Stop: 05/08/16 21:33 Al Hydrox/Mg Hydrox/Simethicone (Maalox) 30 ml PO Q4HR PRN PRN Reason: Indigestion Stop: 05/08/16 21:33 Albuterol Sulfate (Albuterol 2.5mg/3ml Neb Ud) 2.5 mg IH Q2HR PRN PRN Reason: Shortness of Breath or Wheeze Stop: 05/08/16 21:37 Albuterol Sulfate (Albuterol 2.5mg/3ml Neb Ud) 2.5 mg HHN Q4HRT [facility] Stop: 05/20/16 18:59 Last Admin: 04/01/16 11:28 Dose: Not Given Donepezil HCl (Aricept) 10 mg PO HS [facility] Stop: 05/09/16 20:59 Last Admin: 03/31/16 20:19 Dose: 10 mg Enoxaparin Sodium (Lovenox) 30 mg SUBQ DAILY [facility] Stop: 05/28/16 14:59 Last Admin: 04/01/16 09:27 Dose: 30 mg Dextrose/Sodium Chloride (D5-0.45ns) 1,000 mls @ 40 mls/hr IV .Q24H [facility] Stop: 05/18/16 12:59 Last Admin: 04/01/16 06:14 Dose: 40 mls/hr Norepinephrine Bitartrate 4 mg (/ Dextrose) 254 mls @ 15.24 mls/hr IV TITR PRN ; Protocol; 4 MCG/MIN PRN Reason: BP MAINTENANCE (PER PROTOCOL) Stop: 05/20/16 11:23 Last Titration: 03/21/16 14:45 Dose: 0 mcg/min, 0 mls/hr Metronidazole (Flagyl) 500 mg in 100 mls @ 100 mls/hr IV Q8HR [facility] Stop: 05/28/16 00:59 Last Admin: 04/01/16 12:13 Dose: 100 mls/hr Erythromycin Lactobionate 500 (mg/ Sodium Chloride) 250 mls @ 100 mls/hr IV Q12HR@1100,2300 [facility] Stop: 05/29/16 10:59 Last Admin: 04/01/16 11:39 Dose: 100 mls/hr Meropenem 1 gm/ Sodium (Chloride) 100 mls @ 100 mls/hr IV Q12HR@0200,1400 [facility] Stop: 05/27/16 20:59 Last Infusion: 04/01/16 02:46 Dose: Infused Multivitamins/Minerals 10 ml/Amino Acids/ Fat Emulsion Intravenous/ Sterile Water 1,680 mls @ 70 mls/hr IV .Q24H [facility] Stop: 05/27/16 15:59 Last Admin: 03/31/16 17:26 Dose: 70 mls/hr Vancomycin HCl 1.5 gm/ Sodium (Chloride) 500 mls @ 250 mls/hr IV Q24H [facility] Stop: 05/31/16 09:59 Last Admin: 04/01/16 10:17 Dose: 250 mls/hr Insulin Aspart (Novolog Insulin Sliding Scale) 0 units SUBQ Q6HR [facility] PRN Reason: Protocol Stop: 05/25/16 17:59 Last Admin: 04/01/16 12:16 Dose: Not Given Lactobacillus Rhamnosus (Culturelle) 1 each PO DAILY [facility] Stop: 05/22/16 08:59 Last Admin: 04/01/16 11:26 Dose: Not Given Meclizine HCl (Antivert) 25 mg PO DAILY PRN PRN Reason: Nausea / Vomiting Stop: 05/08/16 21:37 Last Admin: 03/26/16 11:32 Dose: 25 mg Metoclopramide HCl (Reglan) 10 mg IVP Q8HR [facility] Stop: 05/23/16 12:59 Last Admin: 04/01/16 04:28 Dose: 10 mg Mirtazapine (Remeron) 7.5 mg PO HS [facility] PRN Reason: Protocol Stop: 05/09/16 20:59 Last Admin: 03/31/16 20:18 Dose: 7.5 mg Miscellaneous (Vte Chemical Prophylaxis Screen/ Admission) 1 ea PRN PRN PRN Reason: PROTOCOL Stop: 05/10/16 17:12 Miscellaneous (Tpn Per Pharmacy) 1 ea DAILY [facility] Stop: 05/20/16 14:39 Miscellaneous (Probiotic Screen) 1 [facility] PRN PRN PRN Reason: PROTOCOL Stop: 05/21/16 14:39 Ondansetron HCl (Zofran) 4 mg IV Q8H PRN PRN Reason: Nausea / Vomiting Stop: 05/08/16 21:37 Last Admin: 03/21/16 20:01 Dose: 4 mg Pantoprazole Sodium (Protonix) 40 mg IVP BID [facility] Stop: 05/31/16 16:59 Quetiapine Fumarate (Seroquel) 100 mg PO QPM [facility] PRN Reason: Protocol Stop: 05/09/16 16:59 Last Admin: 03/31/16 17:16 Dose: Not Given Tamsulosin HCl (Flomax) 0.4 mg PO DAILY [facility] Stop: 05/09/16 08:59 Last Admin: 04/01/16 11:26 Dose: Not Given General: congested, demented HEENT: NC/AT, PERRLA Neck: Supple, No JVD Lungs: CTAB Cardiovascular: RRR, Normal S1, Normal S2 Abdomen: soft non-tender, globular, positive bowel sound Extremities: excoriation, contracture Neurological: no change - Procedures Procedures: Procedures Procedure Code Date APPENDECTOMY ADD-ON 79423 03/10/16 BIOPSY OF BOWEL 54662 03/10/16 BYPASS DESCENDING COLON TO CUTANEOUS, OPEN APPROACH [id number] 03/10/16 COLOSTOMY 66046 03/10/16 EGD BIOPSY SINGLE/MULTIPLE 87807 03/10/16 EXCISION OF ILEUM, OPEN APPROACH [id number] 03/10/16 EXCISION OF LARGE INTESTINE, PERCUTANEOUS APPROACH, DIAGN [id number] 03/10/16 EXCISION OF STOMACH, ENDO, DIAGN [id number] 03/10/16 FREEING OF BOWEL ADHESION 58847 03/10/16 GROUP PSYCHOTHERAPY 28794 06/08/03 INDIVID PSYCHOTHERAP NEC 94.39 06/08/03 OTHER GROUP THERAPY 94.44 06/08/03 RELEASE ILEUM, OPEN APPROACH [id number] 03/10/16 REMOVAL OF SMALL INTESTINE 82223 03/10/16 RESECTION OF APPENDIX, OPEN APPROACH [id number] 03/10/16 Internal Medicine Assmt/Plan - Assessment Assessment: colon mass- adenoca s\p recection ileus colostomy jonathan drain GI BLEED ANEMIA HYPOTENSION leukocytosis malnutrition afib-paroxysmal - Plan Plan: colostomy care picc line tpn cont on iv fluid abx check culture id and gi follow up dw rn check labs s\p sugical resection will place on therapeutic dose of lovenox
--- NOTE | 2016-04-01 13:05 | Infectious Disease Prog Note ---
Infectious Disease Subjective - Review of Systems Service Date: 04/01/16 Subjective: Patient pulled out NGT and refused placed in again. fever is better, abdomen is softer. Has developed low grade fevers y'day. Infectious Disease Objective - Results Result Diagrams: 04/01/16 04:48 04/01/16 04:48 Recent Labs: Laboratory Last Values WBC 26.3 Th/cmm (4.8-10.8) H* D 04/01/16 04:48 RBC 3.57 Mil/cmm (3.80-5.80) L 04/01/16 04:48 Hgb 9.9 gm/dL (12.6-17.4) L 04/01/16 04:48 Hct 29.8 % (39.0-49.0) L 04/01/16 04:48 MCV 83.3 fl (80-99) 04/01/16 04:48 MCH 27.7 pg (27.0-31.0) 04/01/16 04:48 MCHC Differential 33.2 pg (28.0-36.0) 04/01/16 04:48 RDW 18.2 % (11.5-20.0) 04/01/16 04:48 Plt Count 423 Th/cmm (150-400) H 04/01/16 04:48 MPV 7.9 fl 04/01/16 04:48 Neutrophils % 79.2 % (40.0-80.0) 03/30/16 04:42 Band Neutrophils % 3 % (0-10) 04/01/16 04:48 Lymphocytes % 7.2 % (20.0-50.0) L 03/30/16 04:42 Monocytes % 9.7 % (2.0-10.0) 03/30/16 04:42 Eosinophils % 3.6 % (0.0-5.0) 03/30/16 04:42 Basophils % 0.3 % (0.0-2.0) 03/30/16 04:42 Neutrophils (Manual) 82 % (40-80) H 04/01/16 04:48 Lymphocytes 5 % (20-50) L 04/01/16 04:48 Monocytes 7 % (2-10) 04/01/16 04:48 Eosinophils 3 % (0-5) 04/01/16 04:48 Basophils 1 % (0-3) 03/12/16 08:00 Metamyelocytes 1 % (0-0) H 03/29/16 05:00 Platelet Estimate INCREASED PLATELETS (NORMAL) 04/01/16 04:48 Platelet Morphology NORMAL (NORMAL) 04/01/16 04:48 Polychromasia 1+ 03/24/16 06:45 Anisocytosis 1+ 04/01/16 04:48 Microcytosis 1+ 03/21/16 06:19 RBC Morph Micro Appear ABNORMAL (NORMAL) 04/01/16 04:48 PT 11.4 SECONDS (9.5-11.5) 03/24/16 20:04 INR 1.14 (0.5-1.4) 03/24/16 20:04 PTT (Actin FS) 30.2 SECONDS (26.0-38.0) 03/24/16 20:04 Specimen Source Arterial 03/21/16 16:45 Sample Site Right Radial 03/21/16 16:45 pH 7.37 (7.35-7.45) 03/21/16 16:45 pCO2 40.0 mmHg (35.0-45.0) 03/21/16 16:45 pO2 85.0 mmHg (80.0-100.0) 03/21/16 16:45 HCO3 23.1 mmol/L (20.0-26.0) 03/21/16 16:45 Base Excess -2.0 mmol/L (-3.0-3.0) 03/21/16 16:45 O2 Saturation 96.0 % (92.0-100.0) 03/21/16 16:45 Galo Test YES 03/21/16 16:45 Vent Rate NA 03/21/16 16:45 Inspired O2 40 03/21/16 16:45 Tidal Volume NA 03/21/16 16:45 PEEP NA 03/21/16 16:45 Pressure (ins/psv/peep) NA 03/21/16 16:45 Critical Value E.HERNANDEZ 03/21/16 16:45 Sodium 140 mEq/L (136-145) 04/01/16 04:48 Potassium 4.0 mEq/L (3.5-5.1) 04/01/16 04:48 Chloride 111 mEq/L (98-107) H 04/01/16 04:48 Carbon Dioxide 25.0 mEq/L (21.0-31.0) 04/01/16 04:48 Anion Gap 8.0 (7.0-16.0) 04/01/16 04:48 BUN 17 mg/dL (7-25) 04/01/16 04:48 Creatinine 0.9 mg/dL (0.7-1.3) 04/01/16 04:48 Est GFR ( Amer) > 60.0 ml/min (>90) 04/01/16 04:48 Est GFR (Non-Af Amer) > 60.0 ml/min 04/01/16 04:48 BUN/Creatinine Ratio 18.9 04/01/16 04:48 Glucose 135 mg/dL (70-105) H 04/01/16 04:48 POC Glucose 118 MG/DL (70 - 105) H 04/01/16 05:53 Hemoglobin A1c % 5.1 % (4.0-6.0) 03/26/16 06:10 Whole Bld Lactic Acid 1.80 mmol/L (0.60-2.00) 03/26/16 06:10 Calcium 9.1 mg/dL (8.6-10.3) 04/01/16 04:48 Phosphorus 3.8 mg/dL (2.5-5.0) 04/01/16 04:48 Magnesium 2.0 mg/dL (1.9-2.7) 04/01/16 04:48 Ferritin 136 ng/mL (30-400) 03/19/16 07:40 Total Bilirubin 0.4 mg/dL (0.3-1.0) 04/01/16 04:48 AST 10 U/L (13-39) L 04/01/16 04:48 ALT 6 U/L (7-52) L 04/01/16 04:48 Alkaline Phosphatase 56 U/L (34-104) 04/01/16 04:48 Ammonia 32 umol/L (16-53) 03/29/16 05:00 B-Natriuretic Peptide 75.9 pg/mL (5.0-100.0) 04/01/16 04:48 Total Protein 6.9 gm/dL (6.0-8.3) 04/01/16 04:48 Albumin 2.8 gm/dL (4.2-5.5) L 04/01/16 04:48 Globulin 4.1 gm/dL 04/01/16 04:48 Albumin/Globulin Ratio 0.7 (1.0-1.8) L 04/01/16 04:48 Prealbumin 11 mg/dL (10-36) 03/25/16 05:15 Triglycerides 78 mg/dL (<150) 04/01/16 04:48 Cholesterol 61 mg/dL (<200) 04/01/16 04:48 Carcinoembryonic Ag 2.7 ng/mL (0.0-4.7) 03/18/16 06:19 Vitamin B12 389 pg/mL (211-946) 03/10/16 04:30 Folic Acid 13.3 ng/mL (>3.0) 03/10/16 04:30 TSH 2.57 uIU/ml (0.34-5.60) 03/10/16 04:30 Urine Source CATH 03/13/16 16:00 Urine Color YELLOW 03/13/16 16:00 Urine Clarity CLEAR (CLEAR) 03/13/16 16:00 Urine pH 5.5 03/13/16 16:00 Ur Specific [place] 1.010 (1.005-1.030) 03/13/16 16:00 Urine Protein NEGATIVE mg/dL (NEGATIVE) 03/13/16 16:00 Urine Glucose (UA) NEGATIVE mg/dL (NEGATIVE) 03/13/16 16:00 Urine Ketones NEGATIVE mg/dL (NEGATIVE) 03/13/16 16:00 Urine Blood LARGE (NEGATIVE) H 03/13/16 16:00 Urine Nitrate NEGATIVE (NEGATIVE) 03/13/16 16:00 Urine Bilirubin NEGATIVE (NEGATIVE) 03/13/16 16:00 Urine Urobilinogen 1.0 E.U./dL (0.2 - 1.0) 03/13/16 16:00 Ur Leukocyte Esterase TRACE (NEGATIVE) H 03/13/16 16:00 Urine RBC 10-25 /hpf (0-5) H 03/13/16 16:00 Urine WBC 6-10 /hpf (0-5) H 03/13/16 16:00 Ur Epithelial Cells FEW /lpf (FEW) 03/13/16 16:00 Urine Bacteria OCCASIONAL /hpf (NONE SEEN) 03/13/16 16:00 Vancomycin Trough 11.4 ug/mL (10-20) 03/31/16 07:23 Blood Type B POSITIVE 03/29/16 09:15 Antibody Screen NEGATIVE 03/29/16 09:15 Crossmatch See Detail 03/29/16 09:15 - Physical Exam Vitals and I&O: Vital Signs Temp 98.8 F 04/01/16 08:00 Pulse 98 04/01/16 11:29 Resp 19 04/01/16 11:29 BP 127/59 04/01/16 10:00 Pulse Ox 98 04/01/16 11:29 Intake & Output 03/31/16 04/01/16 04/01/16 18:59 06:59 18:59 Intake Total 7007.343 7227.333 Output Total 1500 Balance 2370.015 2908.333 Intake: Intake, IV Amount 5449.738 6188.333 D5-0.45NS 1,000 ml @ 40 941.333 mls/hr IV .Q24H [facility] Rx#: [id number] Erythromycin Lact 500 mg 250 250 In Sodium Chloride 0.9% 250 ml @ 100 mls/hr IV Q12HR@1100,2300 [facility] Rx#: [id number] Meropenem 1 gm In Sodium 200 100 Chloride 0.9% 100 ml @ 100 mls/hr IV Q12HR@0200, 1400 [facility] Rx#:[id number] Multivitamin Inj 10 ml In 1087.333 Amino Acids 5%/Dext 25% 1,000 ml In Intralipids 20% 200 ml In Water, Sterile 470 ml @ 70 mls/ hr IV .Q24H [facility] Rx#: [id number] Pantoprazole 80 mg In 100 100 Sodium Chloride 0.9% 100 ml @ 10 mls/hr IV Q10H [facility] Rx#:[id number] metroNIDAZOLE 500mg/NS 100 200 100mL 500 mg In 100 ml @ 100 mls/hr IV Q8HR [facility] Rx #:[id number] Oral 0 TPN/PPN 810 Other 100 Output: Gastric Drainage 700 Urine 500 Stool 300 Other: Stool Characteristics Soft Soft Soft Formed Formed Brown Brown Brown Active Medications: Current Medications Acetaminophen (Tylenol) 650 mg PO Q6HR PRN PRN Reason: PAIN OR TEMP >100 Stop: 05/08/16 21:33 Last Admin: 03/26/16 11:31 Dose: 650 mg Acetaminophen (Tylenol 650mg Supp) 650 mg RC Q6H PRN PRN Reason: Fever > 101 Stop: 05/28/16 12:49 Last Admin: 03/29/16 16:42 Dose: 650 mg Acetaminophen (Tylenol 650mg Supp) 650 mg RC Q4H PRN PRN Reason: Fever > 101 Stop: 05/28/16 12:55 Acetaminophen/Codeine Phosphate (Tylenol W/Codeine #3) 1 tab PO Q4HR PRN PRN Reason: PAIN Stop: 05/08/16 21:33 Al Hydrox/Mg Hydrox/Simethicone (Maalox) 30 ml PO Q4HR PRN PRN Reason: Indigestion Stop: 05/08/16 21:33 Albuterol Sulfate (Albuterol 2.5mg/3ml Neb Ud) 2.5 mg IH Q2HR PRN PRN Reason: Shortness of Breath or Wheeze Stop: 05/08/16 21:37 Albuterol Sulfate (Albuterol 2.5mg/3ml Neb Ud) 2.5 mg HHN Q4HRT [facility] Stop: 05/20/16 18:59 Last Admin: 04/01/16 11:28 Dose: Not Given Donepezil HCl (Aricept) 10 mg PO HS [facility] Stop: 05/09/16 20:59 Last Admin: 03/31/16 20:19 Dose: 10 mg Enoxaparin Sodium (Lovenox) 30 mg SUBQ DAILY [facility] Stop: 05/28/16 14:59 Last Admin: 04/01/16 09:27 Dose: 30 mg Dextrose/Sodium Chloride (D5-0.45ns) 1,000 mls @ 40 mls/hr IV .Q24H [facility] Stop: 05/18/16 12:59 Last Admin: 04/01/16 06:14 Dose: 40 mls/hr Norepinephrine Bitartrate 4 mg (/ Dextrose) 254 mls @ 15.24 mls/hr IV TITR PRN ; Protocol; 4 MCG/MIN PRN Reason: BP MAINTENANCE (PER PROTOCOL) Stop: 05/20/16 11:23 Last Titration: 03/21/16 14:45 Dose: 0 mcg/min, 0 mls/hr Metronidazole (Flagyl) 500 mg in 100 mls @ 100 mls/hr IV Q8HR [facility] Stop: 05/28/16 00:59 Last Admin: 04/01/16 12:13 Dose: 100 mls/hr Erythromycin Lactobionate 500 (mg/ Sodium Chloride) 250 mls @ 100 mls/hr IV Q12HR@1100,2300 [facility] Stop: 05/29/16 10:59 Last Admin: 04/01/16 11:39 Dose: 100 mls/hr Meropenem 1 gm/ Sodium (Chloride) 100 mls @ 100 mls/hr IV Q12HR@0200,1400 [facility] Stop: 05/27/16 20:59 Last Infusion: 04/01/16 02:46 Dose: Infused Multivitamins/Minerals 10 ml/Amino Acids/ Fat Emulsion Intravenous/ Sterile Water 1,680 mls @ 70 mls/hr IV .Q24H [facility] Stop: 05/27/16 15:59 Last Admin: 03/31/16 17:26 Dose: 70 mls/hr Vancomycin HCl 1.5 gm/ Sodium (Chloride) 500 mls @ 250 mls/hr IV Q24H [facility] Stop: 05/31/16 09:59 Last Admin: 04/01/16 10:17 Dose: 250 mls/hr Insulin Aspart (Novolog Insulin Sliding Scale) 0 units SUBQ Q6HR [facility] PRN Reason: Protocol Stop: 05/25/16 17:59 Last Admin: 04/01/16 12:16 Dose: Not Given Lactobacillus Rhamnosus (Culturelle) 1 each PO DAILY [facility] Stop: 05/22/16 08:59 Last Admin: 04/01/16 11:26 Dose: Not Given Meclizine HCl (Antivert) 25 mg PO DAILY PRN PRN Reason: Nausea / Vomiting Stop: 05/08/16 21:37 Last Admin: 03/26/16 11:32 Dose: 25 mg Metoclopramide HCl (Reglan) 10 mg IVP Q8HR [facility] Stop: 05/23/16 12:59 Last Admin: 04/01/16 04:28 Dose: 10 mg Mirtazapine (Remeron) 7.5 mg PO HS [facility] PRN Reason: Protocol Stop: 05/09/16 20:59 Last Admin: 03/31/16 20:18 Dose: 7.5 mg Miscellaneous (Vte Chemical Prophylaxis Screen/ Admission) 1 ea PRN PRN PRN Reason: PROTOCOL Stop: 05/10/16 17:12 Miscellaneous (Tpn Per Pharmacy) 1 ea MC DAILY [facility] Stop: 05/20/16 14:39 Miscellaneous (Probiotic Screen) 1 ea PRN PRN PRN Reason: PROTOCOL Stop: 05/21/16 14:39 Ondansetron HCl (Zofran) 4 mg IV Q8H PRN PRN Reason: Nausea / Vomiting Stop: 05/08/16 21:37 Last Admin: 03/21/16 20:01 Dose: 4 mg Pantoprazole Sodium (Protonix) 40 mg IVP BID [facility] Stop: 05/31/16 16:59 Quetiapine Fumarate (Seroquel) 100 mg PO QPM [facility] PRN Reason: Protocol Stop: 05/09/16 16:59 Last Admin: 03/31/16 17:16 Dose: Not Given Tamsulosin HCl (Flomax) 0.4 mg PO DAILY [facility] Stop: 05/09/16 08:59 Last Admin: 04/01/16 11:26 Dose: Not Given General: no acute distress, well developed, well nourished HEENT: atraumatic, normocephalic, PERRLA, EOMI Neck: supple, no thyromegaly Cardiovascular: S1S2, regular Lungs: clear to auscultation bilaterally, clear to percussion Abdomen: soft, tender, distended, bowel sounds (hypoactive.), other (colostomy, surgical wound is ok.) Extremities: no cyanosis, no clubbing, no edema Neurological: awake, alert, oriented - Procedures Procedures: Procedures Procedure Code Date APPENDECTOMY ADD-ON 37949 03/10/16 BIOPSY OF BOWEL 15758 03/10/16 BYPASS DESCENDING COLON TO CUTANEOUS, OPEN APPROACH [id number] 03/10/16 COLOSTOMY 63428 03/10/16 EGD BIOPSY SINGLE/MULTIPLE 49150 03/10/16 EXCISION OF ILEUM, OPEN APPROACH [id number] 03/10/16 EXCISION OF LARGE INTESTINE, PERCUTANEOUS APPROACH, DIAGN [id number] 03/10/16 EXCISION OF STOMACH, ENDO, DIAGN [id number] 03/10/16 FREEING OF BOWEL ADHESION 38502 03/10/16 GROUP PSYCHOTHERAPY 23252 06/08/03 INDIVID PSYCHOTHERAP NEC 94.39 06/08/03 OTHER GROUP THERAPY 94.44 06/08/03 RELEASE ILEUM, OPEN APPROACH [id number] 03/10/16 REMOVAL OF SMALL INTESTINE 39410 03/10/16 RESECTION OF APPENDIX, OPEN APPROACH [id number] 03/10/16 Infectious Disease Assmt/Plan - Problem List Patient Problems: All Active Problems BLOOD CLOT IN STOOL (Acute) - Assessment Assessment: Impression: 1. Sepsis, fever and leukocytosis likley due to peritinitis. SBO, Bowel perforation. Ileus and SBO may play a role in this. 2. Peritonitis. 3. GI Bleed resolved. 4. Dementia. 5. History of hypertension. 6. s/p colectomy and colostomy. 7. Intraabdominal mass? colon CA. associated colitis. 8. Suspect ileus versus SBO. RECOMMENDATIONS: Continue vanco IV and meropenem. NIEVES in AM.
--- NOTE | 2016-04-01 16:56 | Diagnostic Imaging Report ---
Abdominal ultrasound HISTORY: Pain Exam is very limited due to lack of patient cooperation and bowel gas. The liver exhibits a homogeneous parenchyma with no focal lesions. The gallbladder could not be visualized due to lack of patient cooperation. If the gallbladder has not been removed, gallbladder disease cannot be excluded. No biliary dilatation. The pancreas is not well seen due to bowel gas. The right kidney appears normal in size with no focal lesions. There is incomplete visualization of the left kidney with no obvious focal lesions or hydronephrosis. The spleen could not be seen. IMPRESSION: 1. Limited/suboptimal exam due to lack of patient cooperation and bowel gas 2. Nonvisualization of the gallbladder. If the gallbladder has not been removed, gallbladder disease cannot be excluded.
[2016-04-01] MEDS: AMINO ACIDS IV SCH (17:02)
[2016-04-01] MEDS: MULTIVITAMIN IV SCH (17:02)
[2016-04-01] MEDS: INTRALIPIDS IV SCH (17:02)
[2016-04-01] MEDS: DEXT IV SCH (17:02)
[2016-04-01] MEDS: [UNRECOGNIZED DRUG - OTHER] IV SCH (17:02)
[2016-04-02] MEDS: INSULIN ASPART SLIDING SCALE 100 UNITS/ML UNIT SUBQ SCH ×3 (00:09→18:31)
[2016-04-02] MEDS: Meropenem 1 GM in Sodium Chloride 0.9% 100 ML IV SCH ×2 (02:46→14:55)
[2016-04-02] MEDS: Albuterol Nebulizer 2.5mg/3mL HHN SCH ×5 (02:58→20:15)
[2016-04-02] MEDS: Metoclopramide 5 mg/mL 2mL Vial IVP SCH ×3 (06:09→21:27)
[2016-04-02] MEDS: metroNIDAZOLE 500mg/NS 100mL 500 MG/100 ML BAG IV SCH ×3 (06:09→21:27)
[2016-04-02 07:15] LABS: % BASOPHILS 0.2 % (0.0-2.0); % EOSINOPHILS 5.3 % (0.0-5.0); % LYMPHOCYTES 9.6 % (20.0-50.0); % MONOCYTES 6.4 % (2.0-10.0); % NEUTROPHILS 78.5 % (40.0-80.0); HEMATOCRIT 28.9 % (39.0-49.0); HEMOGLOBIN 9.7 gm/dL (12.6-17.4); MEAN CELL VOLUME 83.2 fl (80-99); MEAN CORPUSCULAR HEMOGLOBIN 27.9 pg (27.0-31.0); MEAN CORPUSCULAR HGB CONC 33.5 pg (28.0-36.0); NEUTROPHILE ABSOLUTE 14.5 Th/cmm (1.8-8.0); PLATELET COUNT 425 Th/cmm (150-400); RED BLOOD COUNT 3.48 Mil/cmm (3.80-5.80); RED CELL DISTRIBUTION WIDTH 18.1 % (11.5-20.0)
[2016-04-02 07:21] LABS: WHITE BLOOD COUNT 18.5 Th/cmm (4.8-10.8)
[2016-04-02 07:29] LABS: ANION GAP 4.5 (7.0-16.0); BUN - UREA NITROGEN 18 mg/dL (7-25); CALCIUM SERUM 8.8 mg/dL (8.6-10.3); CARBON DIOXIDE 25.7 mEq/L (21.0-31.0); CHLORIDE 109 mEq/L (98-107); CREATININE - SERUM 0.9 mg/dL (0.7-1.3); GLUCOSE 125 mg/dL (70-105); POTASSIUM SERUM 4.2 mEq/L (3.5-5.1); SODIUM SERUM 135 mEq/L (136-145)
[2016-04-02] MEDS: Enoxaparin 40 mg/0.4 mL 0.4mL Syr SUBQ SCH (09:27)
[2016-04-02] MEDS: Lactobacillus Rhamnosus 10 Billion CFU Capsule PO SCH (09:27)
[2016-04-02] MEDS: Vancomycin HCl 1.5 GM in Sodium Chloride 0.9% 500 ML IV SCH (09:53)
--- NOTE | 2016-04-02 10:23 | Diagnostic Imaging Report ---
KUB History: Small bowel obstruction Comparison: CT abdomen and pelvis on 03/27/2016 Findings: Midline subcutaneous xu are seen. Persistent distended loops of small bowel are noted. Additional gas-filled loops of large bowel are noted. IMPRESSION: Persistent distended loops of small bowel which may be due to possible partial small bowel obstruction. Please correlate clinically.
[2016-04-02] MEDS: ERYTHROMYCIN LACT IV SCH ×3 (11:46→23:20)
[2016-04-02] MEDS: SODIUM CHLORIDE 0.9% IV SCH ×3 (11:46→23:20)
--- NOTE | 2016-04-02 13:20 | Internal Medicine Prog Note ---
Internal Medicine Subjective - Subjective Patient seen and examined:: with staff, chart reviewed Patient is:: awake, interactive Patient Complaints of:: congestion Per staff patient is:: no adverse event, confused Internal Medicine Objective - Results Result Diagrams: 04/02/16 06:15 04/02/16 06:15 Recent Labs: Laboratory Last Values WBC 18.5 Th/cmm (4.8-10.8) H D 04/02/16 06:15 RBC 3.48 Mil/cmm (3.80-5.80) L 04/02/16 06:15 Hgb 9.7 gm/dL (12.6-17.4) L 04/02/16 06:15 Hct 28.9 % (39.0-49.0) L 04/02/16 06:15 MCV 83.2 fl (80-99) 04/02/16 06:15 MCH 27.9 pg (27.0-31.0) 04/02/16 06:15 MCHC Differential 33.5 pg (28.0-36.0) 04/02/16 06:15 RDW 18.1 % (11.5-20.0) 04/02/16 06:15 Plt Count 425 Th/cmm (150-400) H 04/02/16 06:15 MPV 8.0 fl 04/02/16 06:15 Neutrophils % 78.5 % (40.0-80.0) 04/02/16 06:15 Band Neutrophils % 3 % (0-10) 04/01/16 04:48 Lymphocytes % 9.6 % (20.0-50.0) L 04/02/16 06:15 Monocytes % 6.4 % (2.0-10.0) 04/02/16 06:15 Eosinophils % 5.3 % (0.0-5.0) H 04/02/16 06:15 Basophils % 0.2 % (0.0-2.0) 04/02/16 06:15 Neutrophils (Manual) 82 % (40-80) H 04/01/16 04:48 Lymphocytes 5 % (20-50) L 04/01/16 04:48 Monocytes 7 % (2-10) 04/01/16 04:48 Eosinophils 3 % (0-5) 04/01/16 04:48 Basophils 1 % (0-3) 03/12/16 08:00 Metamyelocytes 1 % (0-0) H 03/29/16 05:00 Platelet Estimate INCREASED PLATELETS (NORMAL) 04/01/16 04:48 Platelet Morphology NORMAL (NORMAL) 04/01/16 04:48 Polychromasia 1+ 03/24/16 06:45 Anisocytosis 1+ 04/01/16 04:48 Microcytosis 1+ 03/21/16 06:19 RBC Morph Micro Appear ABNORMAL (NORMAL) 04/01/16 04:48 PT 11.4 SECONDS (9.5-11.5) 03/24/16 20:04 INR 1.14 (0.5-1.4) 03/24/16 20:04 PTT (Actin FS) 30.2 SECONDS (26.0-38.0) 03/24/16 20:04 Specimen Source Arterial 03/21/16 16:45 Sample Site Right Radial 03/21/16 16:45 pH 7.37 (7.35-7.45) 03/21/16 16:45 pCO2 40.0 mmHg (35.0-45.0) 03/21/16 16:45 pO2 85.0 mmHg (80.0-100.0) 03/21/16 16:45 HCO3 23.1 mmol/L (20.0-26.0) 03/21/16 16:45 Base Excess -2.0 mmol/L (-3.0-3.0) 03/21/16 16:45 O2 Saturation 96.0 % (92.0-100.0) 03/21/16 16:45 Galo Test YES 03/21/16 16:45 Vent Rate NA 03/21/16 16:45 Inspired O2 40 03/21/16 16:45 Tidal Volume NA 03/21/16 16:45 PEEP NA 03/21/16 16:45 Pressure (ins/psv/peep) NA 03/21/16 16:45 Critical Value E.HERNANDEZ 03/21/16 16:45 Sodium 135 mEq/L (136-145) L 04/02/16 06:15 Potassium 4.2 mEq/L (3.5-5.1) 04/02/16 06:15 Chloride 109 mEq/L (98-107) H 04/02/16 06:15 Carbon Dioxide 25.7 mEq/L (21.0-31.0) 04/02/16 06:15 Anion Gap 4.5 (7.0-16.0) L 04/02/16 06:15 BUN 18 mg/dL (7-25) 04/02/16 06:15 Creatinine 0.9 mg/dL (0.7-1.3) 04/02/16 06:15 Est GFR ( Amer) > 60.0 ml/min (>90) 04/02/16 06:15 Est GFR (Non-Af Amer) > 60.0 ml/min 04/02/16 06:15 BUN/Creatinine Ratio 20.0 04/02/16 06:15 Glucose 125 mg/dL (70-105) H 04/02/16 06:15 POC Glucose 97 MG/DL (70 - 105) 04/02/16 11:35 Hemoglobin A1c % 5.1 % (4.0-6.0) 03/26/16 06:10 Whole Bld Lactic Acid 1.80 mmol/L (0.60-2.00) 03/26/16 06:10 Calcium 8.8 mg/dL (8.6-10.3) 04/02/16 06:15 Phosphorus 3.4 mg/dL (2.5-5.0) 04/02/16 06:15 Magnesium 2.1 mg/dL (1.9-2.7) 04/02/16 06:15 Ferritin 136 ng/mL (30-400) 03/19/16 07:40 Total Bilirubin 0.4 mg/dL (0.3-1.0) 04/01/16 04:48 AST 10 U/L (13-39) L 04/01/16 04:48 ALT 6 U/L (7-52) L 04/01/16 04:48 Alkaline Phosphatase 56 U/L (34-104) 04/01/16 04:48 Ammonia 32 umol/L (16-53) 03/29/16 05:00 B-Natriuretic Peptide 75.9 pg/mL (5.0-100.0) 04/01/16 04:48 Total Protein 6.9 gm/dL (6.0-8.3) 04/01/16 04:48 Albumin 2.8 gm/dL (4.2-5.5) L 04/01/16 04:48 Globulin 4.1 gm/dL 04/01/16 04:48 Albumin/Globulin Ratio 0.7 (1.0-1.8) L 04/01/16 04:48 Prealbumin 15 mg/dL (10-36) 04/01/16 04:48 Triglycerides 78 mg/dL (<150) 04/01/16 04:48 Cholesterol 61 mg/dL (<200) 04/01/16 04:48 Carcinoembryonic Ag 2.7 ng/mL (0.0-4.7) 03/18/16 06:19 Vitamin B12 389 pg/mL (211-946) 03/10/16 04:30 Folic Acid 13.3 ng/mL (>3.0) 03/10/16 04:30 TSH 2.57 uIU/ml (0.34-5.60) 03/10/16 04:30 Urine Source CATH 03/13/16 16:00 Urine Color YELLOW 03/13/16 16:00 Urine Clarity CLEAR (CLEAR) 03/13/16 16:00 Urine pH 5.5 03/13/16 16:00 Ur Specific [place] 1.010 (1.005-1.030) 03/13/16 16:00 Urine Protein NEGATIVE mg/dL (NEGATIVE) 03/13/16 16:00 Urine Glucose (UA) NEGATIVE mg/dL (NEGATIVE) 03/13/16 16:00 Urine Ketones NEGATIVE mg/dL (NEGATIVE) 03/13/16 16:00 Urine Blood LARGE (NEGATIVE) H 03/13/16 16:00 Urine Nitrate NEGATIVE (NEGATIVE) 03/13/16 16:00 Urine Bilirubin NEGATIVE (NEGATIVE) 03/13/16 16:00 Urine Urobilinogen 1.0 E.U./dL (0.2 - 1.0) 03/13/16 16:00 Ur Leukocyte Esterase TRACE (NEGATIVE) H 03/13/16 16:00 Urine RBC 10-25 /hpf (0-5) H 03/13/16 16:00 Urine WBC 6-10 /hpf (0-5) H 03/13/16 16:00 Ur Epithelial Cells FEW /lpf (FEW) 03/13/16 16:00 Urine Bacteria OCCASIONAL /hpf (NONE SEEN) 03/13/16 16:00 Vancomycin Trough 12.5 ug/mL (10-20) 04/02/16 09:00 Blood Type B POSITIVE 03/29/16 09:15 Antibody Screen NEGATIVE 03/29/16 09:15 Crossmatch See Detail 03/29/16 09:15 - Physical Exam Vitals and I&O: Vital Signs Temp 98.6 F 04/02/16 04:00 Pulse 89 04/02/16 04:00 Resp 19 04/02/16 04:00 BP 112/63 04/02/16 04:00 Pulse Ox 97 04/02/16 04:00 Intake & Output 04/01/16 04/02/16 04/02/16 18:59 06:59 18:59 Intake Total 3542 1190 100 Output Total 1200 1000 Balance 2342 190 100 Intake: Intake, IV Amount 2602 350 100 Erythromycin Lact 500 mg 250 250 In Sodium Chloride 0.9% 250 ml @ 100 mls/hr IV Q12HR@1100,2300 [facility] Rx#: [id number] Meropenem 1 gm In Sodium 100 Chloride 0.9% 100 ml @ 100 mls/hr IV Q12HR@0200, 1400 [facility] Rx#:[id number] Multivitamin Inj 10 ml In 1652 Amino Acids 5%/Dext 25% 1,000 ml In Intralipids 20% 200 ml In Water, Sterile 470 ml @ 70 mls/ hr IV .Q24H [facility] Rx#: [id number] Vancomycin HCl 1.5 gm In 500 Sodium Chloride 0.9% 500 ml @ 250 mls/hr IV Q24H [facility] Rx#:[id number] metroNIDAZOLE 500mg/NS 100 100 100 100mL 500 mg In 100 ml @ 100 mls/hr IV Q8HR [facility] Rx #:[id number] Oral 100 TPN/PPN 840 840 Output: Urine 1200 650 Urine/Stool Mix 350 Other: # Bowel Movements 1 Stool Characteristics Soft Liquid Brown Brown Active Medications: Current Medications Acetaminophen (Tylenol) 650 mg PO Q6HR PRN PRN Reason: PAIN OR TEMP >100 Stop: 05/08/16 21:33 Last Admin: 03/26/16 11:31 Dose: 650 mg Acetaminophen (Tylenol 650mg Supp) 650 mg RC Q6H PRN PRN Reason: Fever > 101 Stop: 05/28/16 12:49 Last Admin: 03/29/16 16:42 Dose: 650 mg Acetaminophen (Tylenol 650mg Supp) 650 mg RC Q4H PRN PRN Reason: Fever > 101 Stop: 05/28/16 12:55 Acetaminophen/Codeine Phosphate (Tylenol W/Codeine #3) 1 tab PO Q4HR PRN PRN Reason: PAIN Stop: 05/08/16 21:33 Al Hydrox/Mg Hydrox/Simethicone (Maalox) 30 ml PO Q4HR PRN PRN Reason: Indigestion Stop: 05/08/16 21:33 Albuterol Sulfate (Albuterol 2.5mg/3ml Neb Ud) 2.5 mg IH Q2HR PRN PRN Reason: Shortness of Breath or Wheeze Stop: 05/08/16 21:37 Albuterol Sulfate (Albuterol 2.5mg/3ml Neb Ud) 2.5 mg HHN Q4HRT [facility] Stop: 05/20/16 18:59 Last Admin: 04/02/16 11:40 Dose: 2.5 mg Donepezil HCl (Aricept) 10 mg PO HS [facility] Stop: 05/09/16 20:59 Last Admin: 04/01/16 21:19 Dose: 10 mg Enoxaparin Sodium (Lovenox) 30 mg SUBQ DAILY [facility] Stop: 05/28/16 14:59 Last Admin: 04/02/16 09:27 Dose: 30 mg Dextrose/Sodium Chloride (D5-0.45ns) 1,000 mls @ 40 mls/hr IV .Q24H [facility] Stop: 05/18/16 12:59 Last Admin: 04/01/16 06:14 Dose: 40 mls/hr Norepinephrine Bitartrate 4 mg (/ Dextrose) 254 mls @ 15.24 mls/hr IV TITR PRN ; Protocol; 4 MCG/MIN PRN Reason: BP MAINTENANCE (PER PROTOCOL) Stop: 05/20/16 11:23 Last Titration: 03/21/16 14:45 Dose: 0 mcg/min, 0 mls/hr Metronidazole (Flagyl) 500 mg in 100 mls @ 100 mls/hr IV Q8HR [facility] Stop: 05/28/16 00:59 Last Admin: 04/02/16 11:59 Dose: 100 mls/hr Erythromycin Lactobionate 500 (mg/ Sodium Chloride) 250 mls @ 100 mls/hr IV Q12HR@1100,2300 [facility] Stop: 05/29/16 10:59 Last Admin: 04/02/16 11:46 Dose: 100 mls/hr Meropenem 1 gm/ Sodium (Chloride) 100 mls @ 100 mls/hr IV Q12HR@0200,1400 [facility] Stop: 05/27/16 20:59 Last Admin: 04/02/16 02:46 Dose: 100 mls/hr Multivitamins/Minerals 10 ml/Amino Acids/ Fat Emulsion Intravenous/ Sterile Water 1,680 mls @ 70 mls/hr IV .Q24H [facility] Stop: 05/27/16 15:59 Last Admin: 04/01/16 17:02 Dose: 70 mls/hr Vancomycin HCl 1.75 gm/ Sodium (Chloride) 500 mls @ 250 mls/hr IV Q24H [facility] Stop: 06/02/16 08:59 Insulin Aspart (Novolog Insulin Sliding Scale) 0 units SUBQ Q6HR [facility] PRN Reason: Protocol Stop: 05/25/16 17:59 Last Admin: 04/02/16 11:53 Dose: Not Given Lactobacillus Rhamnosus (Culturelle) 1 each PO DAILY [facility] Stop: 05/22/16 08:59 Last Admin: 04/02/16 09:27 Dose: 1 each Meclizine HCl (Antivert) 25 mg PO DAILY PRN PRN Reason: Nausea / Vomiting Stop: 05/08/16 21:37 Last Admin: 03/26/16 11:32 Dose: 25 mg Metoclopramide HCl (Reglan) 10 mg IVP Q8HR [facility] Stop: 05/23/16 12:59 Last Admin: 04/02/16 12:13 Dose: 10 mg Mirtazapine (Remeron) 7.5 mg PO HS [facility] PRN Reason: Protocol Stop: 05/09/16 20:59 Last Admin: 04/01/16 21:19 Dose: 7.5 mg Miscellaneous (Vte Chemical Prophylaxis Screen/ Admission) 1 ea [facility] PRN PRN PRN Reason: PROTOCOL Stop: 05/10/16 17:12 Miscellaneous (Tpn Per Pharmacy) 1 ea [facility] DAILY [facility] Stop: 05/20/16 14:39 Miscellaneous (Probiotic Screen) 1 ea [facility] PRN PRN PRN Reason: PROTOCOL Stop: 05/21/16 14:39 Ondansetron HCl (Zofran) 4 mg IV Q8H PRN PRN Reason: Nausea / Vomiting Stop: 05/08/16 21:37 Last Admin: 03/21/16 20:01 Dose: 4 mg Pantoprazole Sodium (Protonix) 40 mg IVP BID [facility] Stop: 05/31/16 16:59 Last Admin: 04/02/16 09:27 Dose: 40 mg Quetiapine Fumarate (Seroquel) 100 mg PO QPM [facility] PRN Reason: Protocol Stop: 05/09/16 16:59 Last Admin: 04/01/16 16:57 Dose: 100 mg Tamsulosin HCl (Flomax) 0.4 mg PO DAILY [facility] Stop: 05/09/16 08:59 Last Admin: 04/02/16 09:27 Dose: 0.4 mg General: alert HEENT: NC/AT, PERRLA Neck: Supple Lungs: congested, rales Cardiovascular: RRR, Normal S1, Normal S2, other (dressing) Abdomen: soft non-tender, globular Extremities: excoriation, contracture Neurological: no change - Procedures Procedures: Procedures Procedure Code Date APPENDECTOMY ADD-ON 59502 03/10/16 BIOPSY OF BOWEL 66510 03/10/16 BYPASS DESCENDING COLON TO CUTANEOUS, OPEN APPROACH [id number] 03/10/16 COLOSTOMY 32166 03/10/16 EGD BIOPSY SINGLE/MULTIPLE 02340 03/10/16 EXCISION OF ILEUM, OPEN APPROACH [id number] 03/10/16 EXCISION OF LARGE INTESTINE, PERCUTANEOUS APPROACH, DIAGN [id number] 03/10/16 EXCISION OF STOMACH, ENDO, DIAGN [id number] 03/10/16 FREEING OF BOWEL ADHESION 15131 03/10/16 GROUP PSYCHOTHERAPY 37976 06/08/03 INDIVID PSYCHOTHERAP NEC 94.39 06/08/03 OTHER GROUP THERAPY 94.44 06/08/03 RELEASE ILEUM, OPEN APPROACH [id number] 03/10/16 REMOVAL OF SMALL INTESTINE 56053 03/10/16 RESECTION OF APPENDIX, OPEN APPROACH [id number] 03/10/16 Internal Medicine Assmt/Plan - Assessment Assessment: colon mass- adenoca s\p recection ileus colostomy jonathan drain GI BLEED ANEMIA HYPOTENSION leukocytosis malnutrition afib-paroxysmal - Plan Plan: colostomy care picc line tpn cont on iv fluid abx check culture id and gi follow up dw rn check labs s\p sugical resection will place on therapeutic dose of lovenox
[2016-04-02] MEDS ORDERED: ERYTHROMYCIN LACTOBIONATE IV ONE (23:02)
--- NOTE | 2016-04-02 23:49 | Infectious Disease Prog Note ---
Infectious Disease Subjective - Review of Systems Service Date: 04/02/16 Subjective: There is no fever. Infectious Disease Objective - Results Result Diagrams: 04/02/16 06:15 04/02/16 06:15 Recent Labs: Laboratory Last Values WBC 18.5 Th/cmm (4.8-10.8) H D 04/02/16 06:15 RBC 3.48 Mil/cmm (3.80-5.80) L 04/02/16 06:15 Hgb 9.7 gm/dL (12.6-17.4) L 04/02/16 06:15 Hct 28.9 % (39.0-49.0) L 04/02/16 06:15 MCV 83.2 fl (80-99) 04/02/16 06:15 MCH 27.9 pg (27.0-31.0) 04/02/16 06:15 MCHC Differential 33.5 pg (28.0-36.0) 04/02/16 06:15 RDW 18.1 % (11.5-20.0) 04/02/16 06:15 Plt Count 425 Th/cmm (150-400) H 04/02/16 06:15 MPV 8.0 fl 04/02/16 06:15 Neutrophils % 78.5 % (40.0-80.0) 04/02/16 06:15 Band Neutrophils % 3 % (0-10) 04/01/16 04:48 Lymphocytes % 9.6 % (20.0-50.0) L 04/02/16 06:15 Monocytes % 6.4 % (2.0-10.0) 04/02/16 06:15 Eosinophils % 5.3 % (0.0-5.0) H 04/02/16 06:15 Basophils % 0.2 % (0.0-2.0) 04/02/16 06:15 Neutrophils (Manual) 82 % (40-80) H 04/01/16 04:48 Lymphocytes 5 % (20-50) L 04/01/16 04:48 Monocytes 7 % (2-10) 04/01/16 04:48 Eosinophils 3 % (0-5) 04/01/16 04:48 Basophils 1 % (0-3) 03/12/16 08:00 Metamyelocytes 1 % (0-0) H 03/29/16 05:00 Platelet Estimate INCREASED PLATELETS (NORMAL) 04/01/16 04:48 Platelet Morphology NORMAL (NORMAL) 04/01/16 04:48 Polychromasia 1+ 03/24/16 06:45 Anisocytosis 1+ 04/01/16 04:48 Microcytosis 1+ 03/21/16 06:19 RBC Morph Micro Appear ABNORMAL (NORMAL) 04/01/16 04:48 PT 11.4 SECONDS (9.5-11.5) 03/24/16 20:04 INR 1.14 (0.5-1.4) 03/24/16 20:04 PTT (Actin FS) 30.2 SECONDS (26.0-38.0) 03/24/16 20:04 Specimen Source Arterial 03/21/16 16:45 Sample Site Right Radial 03/21/16 16:45 pH 7.37 (7.35-7.45) 03/21/16 16:45 pCO2 40.0 mmHg (35.0-45.0) 03/21/16 16:45 pO2 85.0 mmHg (80.0-100.0) 03/21/16 16:45 HCO3 23.1 mmol/L (20.0-26.0) 03/21/16 16:45 Base Excess -2.0 mmol/L (-3.0-3.0) 03/21/16 16:45 O2 Saturation 96.0 % (92.0-100.0) 03/21/16 16:45 Galo Test YES 03/21/16 16:45 Vent Rate NA 03/21/16 16:45 Inspired O2 40 03/21/16 16:45 Tidal Volume NA 03/21/16 16:45 PEEP NA 03/21/16 16:45 Pressure (ins/psv/peep) NA 03/21/16 16:45 Critical Value E.HERNANDEZ 03/21/16 16:45 Sodium 135 mEq/L (136-145) L 04/02/16 06:15 Potassium 4.2 mEq/L (3.5-5.1) 04/02/16 06:15 Chloride 109 mEq/L (98-107) H 04/02/16 06:15 Carbon Dioxide 25.7 mEq/L (21.0-31.0) 04/02/16 06:15 Anion Gap 4.5 (7.0-16.0) L 04/02/16 06:15 BUN 18 mg/dL (7-25) 04/02/16 06:15 Creatinine 0.9 mg/dL (0.7-1.3) 04/02/16 06:15 Est GFR ( Amer) > 60.0 ml/min (>90) 04/02/16 06:15 Est GFR (Non-Af Amer) > 60.0 ml/min 04/02/16 06:15 BUN/Creatinine Ratio 20.0 04/02/16 06:15 Glucose 125 mg/dL (70-105) H 04/02/16 06:15 POC Glucose 110 MG/DL (70 - 105) H 04/02/16 17:41 Hemoglobin A1c % 5.1 % (4.0-6.0) 03/26/16 06:10 Whole Bld Lactic Acid 1.80 mmol/L (0.60-2.00) 03/26/16 06:10 Calcium 8.8 mg/dL (8.6-10.3) 04/02/16 06:15 Phosphorus 3.4 mg/dL (2.5-5.0) 04/02/16 06:15 Magnesium 2.1 mg/dL (1.9-2.7) 04/02/16 06:15 Ferritin 136 ng/mL (30-400) 03/19/16 07:40 Total Bilirubin 0.4 mg/dL (0.3-1.0) 04/01/16 04:48 AST 10 U/L (13-39) L 04/01/16 04:48 ALT 6 U/L (7-52) L 04/01/16 04:48 Alkaline Phosphatase 56 U/L (34-104) 04/01/16 04:48 Ammonia 32 umol/L (16-53) 03/29/16 05:00 B-Natriuretic Peptide 75.9 pg/mL (5.0-100.0) 04/01/16 04:48 Total Protein 6.9 gm/dL (6.0-8.3) 04/01/16 04:48 Albumin 2.8 gm/dL (4.2-5.5) L 04/01/16 04:48 Globulin 4.1 gm/dL 04/01/16 04:48 Albumin/Globulin Ratio 0.7 (1.0-1.8) L 04/01/16 04:48 Prealbumin 15 mg/dL (10-36) 04/01/16 04:48 Triglycerides 78 mg/dL (<150) 04/01/16 04:48 Cholesterol 61 mg/dL (<200) 04/01/16 04:48 Carcinoembryonic Ag 2.7 ng/mL (0.0-4.7) 03/18/16 06:19 Vitamin B12 389 pg/mL (211-946) 03/10/16 04:30 Folic Acid 13.3 ng/mL (>3.0) 03/10/16 04:30 TSH 2.57 uIU/ml (0.34-5.60) 03/10/16 04:30 Urine Source CATH 03/13/16 16:00 Urine Color YELLOW 03/13/16 16:00 Urine Clarity CLEAR (CLEAR) 03/13/16 16:00 Urine pH 5.5 03/13/16 16:00 Ur Specific [place] 1.010 (1.005-1.030) 03/13/16 16:00 Urine Protein NEGATIVE mg/dL (NEGATIVE) 03/13/16 16:00 Urine Glucose (UA) NEGATIVE mg/dL (NEGATIVE) 03/13/16 16:00 Urine Ketones NEGATIVE mg/dL (NEGATIVE) 03/13/16 16:00 Urine Blood LARGE (NEGATIVE) H 03/13/16 16:00 Urine Nitrate NEGATIVE (NEGATIVE) 03/13/16 16:00 Urine Bilirubin NEGATIVE (NEGATIVE) 03/13/16 16:00 Urine Urobilinogen 1.0 E.U./dL (0.2 - 1.0) 03/13/16 16:00 Ur Leukocyte Esterase TRACE (NEGATIVE) H 03/13/16 16:00 Urine RBC 10-25 /hpf (0-5) H 03/13/16 16:00 Urine WBC 6-10 /hpf (0-5) H 03/13/16 16:00 Ur Epithelial Cells FEW /lpf (FEW) 03/13/16 16:00 Urine Bacteria OCCASIONAL /hpf (NONE SEEN) 03/13/16 16:00 Vancomycin Trough 12.5 ug/mL (10-20) 04/02/16 09:00 Blood Type B POSITIVE 03/29/16 09:15 Antibody Screen NEGATIVE 03/29/16 09:15 Crossmatch See Detail 03/29/16 09:15 - Physical Exam Vitals and I&O: Vital Signs Temp 97.3 F 04/02/16 20:00 Pulse 95 04/02/16 23:15 Resp 20 04/02/16 23:15 BP 124/75 04/02/16 20:00 Pulse Ox 97 04/02/16 23:15 Intake & Output 04/02/16 04/02/16 04/03/16 06:59 18:59 06:59 Intake Total 1290 1590 Output Total 1000 1200 Balance 290 390 Intake: Intake, IV Amount 450 450 Erythromycin Lact 500 mg 250 250 In Sodium Chloride 0.9% 250 ml @ 100 mls/hr IV Q12HR@1100,2300 [facility] Rx#: [id number] Meropenem 1 gm In Sodium 100 Chloride 0.9% 100 ml @ 100 mls/hr IV Q12HR@0200, 1400 [facility] Rx#:[id number] metroNIDAZOLE 500mg/NS 100 200 100mL 500 mg In 100 ml @ 100 mls/hr IV Q8HR [facility] Rx #:[id number] Oral 300 TPN/PPN 840 840 Output: Urine 650 1000 Urine/Stool Mix 350 Other 200 Other: # Bowel Movements 1 Stool Characteristics Liquid Brown Active Medications: Current Medications Acetaminophen (Tylenol) 650 mg PO Q6HR PRN PRN Reason: PAIN OR TEMP >100 Stop: 05/08/16 21:33 Last Admin: 03/26/16 11:31 Dose: 650 mg Acetaminophen (Tylenol 650mg Supp) 650 mg RC Q6H PRN PRN Reason: Fever > 101 Stop: 05/28/16 12:49 Last Admin: 03/29/16 16:42 Dose: 650 mg Acetaminophen (Tylenol 650mg Supp) 650 mg RC Q4H PRN PRN Reason: Fever > 101 Stop: 05/28/16 12:55 Acetaminophen/Codeine Phosphate (Tylenol W/Codeine #3) 1 tab PO Q4HR PRN PRN Reason: PAIN Stop: 05/08/16 21:33 Al Hydrox/Mg Hydrox/Simethicone (Maalox) 30 ml PO Q4HR PRN PRN Reason: Indigestion Stop: 05/08/16 21:33 Albuterol Sulfate (Albuterol 2.5mg/3ml Neb Ud) 2.5 mg IH Q2HR PRN PRN Reason: Shortness of Breath or Wheeze Stop: 05/08/16 21:37 Albuterol Sulfate (Albuterol 2.5mg/3ml Neb Ud) 2.5 mg HHN Q4HRT [facility] Stop: 05/20/16 18:59 Last Admin: 04/02/16 20:15 Dose: 2.5 mg Donepezil HCl (Aricept) 10 mg PO HS [facility] Stop: 05/09/16 20:59 Last Admin: 04/02/16 21:27 Dose: 10 mg Enoxaparin Sodium (Lovenox) 30 mg SUBQ DAILY [facility] Stop: 05/28/16 14:59 Last Admin: 04/02/16 09:27 Dose: 30 mg Dextrose/Sodium Chloride (D5-0.45ns) 1,000 mls @ 40 mls/hr IV .Q24H [facility] Stop: 05/18/16 12:59 Last Admin: 04/01/16 06:14 Dose: 40 mls/hr Norepinephrine Bitartrate 4 mg (/ Dextrose) 254 mls @ 15.24 mls/hr IV TITR PRN ; Protocol; 4 MCG/MIN PRN Reason: BP MAINTENANCE (PER PROTOCOL) Stop: 05/20/16 11:23 Last Titration: 03/21/16 14:45 Dose: 0 mcg/min, 0 mls/hr Metronidazole (Flagyl) 500 mg in 100 mls @ 100 mls/hr IV Q8HR [facility] Stop: 05/28/16 00:59 Last Admin: 04/02/16 21:27 Dose: 100 mls/hr Erythromycin Lactobionate 500 (mg/ Sodium Chloride) 250 mls @ 100 mls/hr IV Q12HR@1100,2300 [facility] Stop: 05/29/16 10:59 Last Admin: 04/02/16 23:20 Dose: 100 mls/hr Meropenem 1 gm/ Sodium (Chloride) 100 mls @ 100 mls/hr IV Q12HR@0200,1400 [facility] Stop: 05/27/16 20:59 Last Admin: 04/02/16 14:55 Dose: 100 mls/hr Multivitamins/Minerals 10 ml/Amino Acids/ Fat Emulsion Intravenous/ Sterile Water 1,680 mls @ 70 mls/hr IV .Q24H [facility] Stop: 05/27/16 15:59 Last Admin: 04/01/16 17:02 Dose: 70 mls/hr Vancomycin HCl 1.75 gm/ Sodium (Chloride) 500 mls @ 250 mls/hr IV Q24H [facility] Stop: 06/02/16 08:59 Insulin Aspart (Novolog Insulin Sliding Scale) 0 units SUBQ Q6HR [facility] PRN Reason: Protocol Stop: 05/25/16 17:59 Last Admin: 04/02/16 18:31 Dose: Not Given Lactobacillus Rhamnosus (Culturelle) 1 each PO DAILY [facility] Stop: 05/22/16 08:59 Last Admin: 04/02/16 09:27 Dose: 1 each Meclizine HCl (Antivert) 25 mg PO DAILY PRN PRN Reason: Nausea / Vomiting Stop: 05/08/16 21:37 Last Admin: 03/26/16 11:32 Dose: 25 mg Metoclopramide HCl (Reglan) 10 mg IVP Q8HR [facility] Stop: 05/23/16 12:59 Last Admin: 04/02/16 21:27 Dose: 10 mg Mirtazapine (Remeron) 7.5 mg PO HS [facility] PRN Reason: Protocol Stop: 05/09/16 20:59 Last Admin: 04/02/16 21:26 Dose: 7.5 mg Miscellaneous (Vte Chemical Prophylaxis Screen/ Admission) 1 ea PRN PRN PRN Reason: PROTOCOL Stop: 05/10/16 17:12 Miscellaneous (Tpn Per Pharmacy) 1 ea MC DAILY [facility] Stop: 05/20/16 14:39 Miscellaneous (Probiotic Screen) 1 ea PRN PRN PRN Reason: PROTOCOL Stop: 05/21/16 14:39 Ondansetron HCl (Zofran) 4 mg IV Q8H PRN PRN Reason: Nausea / Vomiting Stop: 05/08/16 21:37 Last Admin: 03/21/16 20:01 Dose: 4 mg Pantoprazole Sodium (Protonix) 40 mg IVP BID [facility] Stop: 05/31/16 16:59 Last Admin: 04/02/16 16:22 Dose: 40 mg Quetiapine Fumarate (Seroquel) 100 mg PO QPM [facility] PRN Reason: Protocol Stop: 05/09/16 16:59 Last Admin: 04/02/16 16:22 Dose: 100 mg Tamsulosin HCl (Flomax) 0.4 mg PO DAILY [facility] Stop: 05/09/16 08:59 Last Admin: 04/02/16 09:27 Dose: 0.4 mg General: no acute distress, well developed, well nourished HEENT: atraumatic, normocephalic, PERRLA, EOMI, moist mucous membrane Neck: supple Cardiovascular: S1S2, regular Lungs: clear to auscultation bilaterally, clear to percussion Abdomen: soft, other (Colostomy in LLQ.), no tender, no distended Extremities: no cyanosis, no clubbing, no edema Neurological: awake, alert, oriented - Procedures Procedures: Procedures Procedure Code Date APPENDECTOMY ADD-ON 79110 03/10/16 BIOPSY OF BOWEL 21519 03/10/16 BYPASS DESCENDING COLON TO CUTANEOUS, OPEN APPROACH [id number] 03/10/16 COLOSTOMY 75908 03/10/16 EGD BIOPSY SINGLE/MULTIPLE 52499 03/10/16 EXCISION OF ILEUM, OPEN APPROACH [id number] 03/10/16 EXCISION OF LARGE INTESTINE, PERCUTANEOUS APPROACH, DIAGN [id number] 03/10/16 EXCISION OF STOMACH, ENDO, DIAGN [id number] 03/10/16 FREEING OF BOWEL ADHESION 63471 03/10/16 GROUP PSYCHOTHERAPY 64645 06/08/03 INDIVID PSYCHOTHERAP NEC 94.39 06/08/03 OTHER GROUP THERAPY 94.44 06/08/03 RELEASE ILEUM, OPEN APPROACH [id number] 03/10/16 REMOVAL OF SMALL INTESTINE 90689 03/10/16 RESECTION OF APPENDIX, OPEN APPROACH [id number] 03/10/16 Infectious Disease Assmt/Plan - Problem List Patient Problems: All Active Problems BLOOD CLOT IN STOOL (Acute) - Assessment Assessment: Impression: 1. Sepsis, fever and leukocytosis likley due to peritonitis. ?SBO. Improving. 2. Peritonitis. 3. GI Bleed resolved. 4. Dementia. 5. History of hypertension. 6. s/p colectomy and colostomy. 7. Intraabdominal mass? colon CA. associated colitis. 8. Suspect ileus versus SBO. RECOMMENDATIONS: Continue vanco IV and meropenem. ADIS PICKETT in AM.
[2016-04-03] MEDS: Meropenem 1 GM in Sodium Chloride 0.9% 100 ML IV SCH ×2 (02:04→14:48)
[2016-04-03] MEDS: Metoclopramide 5 mg/mL 2mL Vial IVP SCH ×3 (05:13→20:55)
[2016-04-03] MEDS: INSULIN ASPART SLIDING SCALE 100 UNITS/ML UNIT SUBQ SCH ×3 (06:34→11:40)
[2016-04-03 07:20] LABS: HEMATOCRIT 29.8 % (39.0-49.0); HEMOGLOBIN 9.8 gm/dL (12.6-17.4); MEAN CELL VOLUME 83.5 fl (80-99); MEAN CORPUSCULAR HEMOGLOBIN 27.5 pg (27.0-31.0); MEAN PLATELET VOLUME 8.4 fl; PLATELET COUNT 409 Th/cmm (150-400); RED BLOOD COUNT 3.57 Mil/cmm (3.80-5.80); RED CELL DISTRIBUTION WIDTH 17.5 % (11.5-20.0); WHITE BLOOD COUNT 15.2 Th/cmm (4.8-10.8)
[2016-04-03 07:44] LABS: ANION GAP 7.8 (7.0-16.0); BUN - UREA NITROGEN 16 mg/dL (7-25); CALCIUM SERUM 8.9 mg/dL (8.6-10.3); CARBON DIOXIDE 24.5 mEq/L (21.0-31.0); CHLORIDE 104 mEq/L (98-107); CREATININE - SERUM 0.8 mg/dL (0.7-1.3); GLUCOSE 123 mg/dL (70-105); MAGNESIUM 2.1 mg/dL (1.9-2.7); PHOSPHOROUS 2.9 mg/dL (2.5-5.0); POTASSIUM SERUM 4.3 mEq/L (3.5-5.1); SODIUM SERUM 132 mEq/L (136-145)
[2016-04-03] MEDS: Albuterol Nebulizer 2.5mg/3mL HHN SCH ×5 (08:25→22:55)
[2016-04-03] MEDS: Enoxaparin 40 mg/0.4 mL 0.4mL Syr SUBQ SCH (08:37)
[2016-04-03] MEDS: Lactobacillus Rhamnosus 10 Billion CFU Capsule PO SCH (08:37)
[2016-04-03] MEDS: D5-0.45NS 1,000 ML IV SCH (08:38)
[2016-04-03 09:14] LABS: EOSINOPHIL 7 % (0-5); NEUTROPHILS 74 % (40-80); TOTAL CELLS COUNTED 100
[2016-04-03 09:15] LABS: PLATELET ESTIMATE ADEQUATE (NORMAL); PLATELET MORPHOLOGY NORMAL (NORMAL)
[2016-04-03] MEDS: Vancomycin HCl 1.75 GM in Sodium Chloride 0.9% 500 ML IV SCH (09:45)
--- NOTE | 2016-04-03 11:54 | Diagnostic Imaging Report ---
KUB History: Small bowel obstruction Comparison: KUB on to 04/02/2016 Findings: Midline skin xu are noted. Persistent gas-distended loops of bowel are noted including small bowel loops. IMPRESSION: Persistent distended loops of bowel including small bowel loops. Findings may be due to severe post operative ileus or partial small bowel obstruction.
[2016-04-03] MEDS: SODIUM CHLORIDE 0.9% IV SCH ×2 (12:01→22:34)
[2016-04-03] MEDS: ERYTHROMYCIN LACT IV SCH ×2 (12:01→22:34)
--- NOTE | 2016-04-03 12:57 | Internal Medicine Prog Note ---
Internal Medicine Subjective - Subjective Patient seen and examined:: with staff, chart reviewed Patient is:: awake, verbal, interactive Patient Complaints of:: congestion Per staff patient is:: no adverse event, confused Internal Medicine Objective - Results Result Diagrams: 04/03/16 06:20 04/03/16 06:20 Recent Labs: Laboratory Last Values WBC 15.2 Th/cmm (4.8-10.8) H 04/03/16 06:20 RBC 3.57 Mil/cmm (3.80-5.80) L 04/03/16 06:20 Hgb 9.8 gm/dL (12.6-17.4) L 04/03/16 06:20 Hct 29.8 % (39.0-49.0) L 04/03/16 06:20 MCV 83.5 fl (80-99) 04/03/16 06:20 MCH 27.5 pg (27.0-31.0) 04/03/16 06:20 MCHC Differential 33.0 pg (28.0-36.0) 04/03/16 06:20 RDW 17.5 % (11.5-20.0) 04/03/16 06:20 Plt Count 409 Th/cmm (150-400) H 04/03/16 06:20 MPV 8.4 fl 04/03/16 06:20 Neutrophils % 78.5 % (40.0-80.0) 04/02/16 06:15 Band Neutrophils % 3 % (0-10) 04/01/16 04:48 Lymphocytes % 9.6 % (20.0-50.0) L 04/02/16 06:15 Monocytes % 6.4 % (2.0-10.0) 04/02/16 06:15 Eosinophils % 5.3 % (0.0-5.0) H 04/02/16 06:15 Basophils % 0.2 % (0.0-2.0) 04/02/16 06:15 Neutrophils (Manual) 74 % (40-80) 04/03/16 06:20 Lymphocytes 13 % (20-50) L 04/03/16 06:20 Monocytes 6 % (2-10) 04/03/16 06:20 Eosinophils 7 % (0-5) H 04/03/16 06:20 Basophils 1 % (0-3) 03/12/16 08:00 Metamyelocytes 1 % (0-0) H 03/29/16 05:00 Platelet Estimate ADEQUATE (NORMAL) 04/03/16 06:20 Platelet Morphology NORMAL (NORMAL) 04/03/16 06:20 Polychromasia 1+ 03/24/16 06:45 Anisocytosis 1+ 04/01/16 04:48 Microcytosis 1+ 03/21/16 06:19 RBC Morph Micro Appear NORMAL (NORMAL) 04/03/16 06:20 PT 11.4 SECONDS (9.5-11.5) 03/24/16 20:04 INR 1.14 (0.5-1.4) 03/24/16 20:04 PTT (Actin FS) 30.2 SECONDS (26.0-38.0) 03/24/16 20:04 Specimen Source Arterial 03/21/16 16:45 Sample Site Right Radial 03/21/16 16:45 pH 7.37 (7.35-7.45) 03/21/16 16:45 pCO2 40.0 mmHg (35.0-45.0) 03/21/16 16:45 pO2 85.0 mmHg (80.0-100.0) 03/21/16 16:45 HCO3 23.1 mmol/L (20.0-26.0) 03/21/16 16:45 Base Excess -2.0 mmol/L (-3.0-3.0) 03/21/16 16:45 O2 Saturation 96.0 % (92.0-100.0) 03/21/16 16:45 Galo Test YES 03/21/16 16:45 Vent Rate NA 03/21/16 16:45 Inspired O2 40 03/21/16 16:45 Tidal Volume NA 03/21/16 16:45 PEEP NA 03/21/16 16:45 Pressure (ins/psv/peep) NA 03/21/16 16:45 Critical Value E.HERNANDEZ 03/21/16 16:45 Sodium 132 mEq/L (136-145) L 04/03/16 06:20 Potassium 4.3 mEq/L (3.5-5.1) 04/03/16 06:20 Chloride 104 mEq/L (98-107) 04/03/16 06:20 Carbon Dioxide 24.5 mEq/L (21.0-31.0) 04/03/16 06:20 Anion Gap 7.8 (7.0-16.0) 04/03/16 06:20 BUN 16 mg/dL (7-25) 04/03/16 06:20 Creatinine 0.8 mg/dL (0.7-1.3) 04/03/16 06:20 Est GFR ( Amer) > 60.0 ml/min (>90) 04/03/16 06:20 Est GFR (Non-Af Amer) > 60.0 ml/min 04/03/16 06:20 BUN/Creatinine Ratio 20.0 04/03/16 06:20 Glucose 123 mg/dL (70-105) H 04/03/16 06:20 POC Glucose 126 MG/DL (70 - 105) H 04/03/16 11:19 Hemoglobin A1c % 5.1 % (4.0-6.0) 03/26/16 06:10 Whole Bld Lactic Acid 1.80 mmol/L (0.60-2.00) 03/26/16 06:10 Calcium 8.9 mg/dL (8.6-10.3) 04/03/16 06:20 Phosphorus 2.9 mg/dL (2.5-5.0) 04/03/16 06:20 Magnesium 2.1 mg/dL (1.9-2.7) 04/03/16 06:20 Ferritin 136 ng/mL (30-400) 03/19/16 07:40 Total Bilirubin 0.4 mg/dL (0.3-1.0) 04/01/16 04:48 AST 10 U/L (13-39) L 04/01/16 04:48 ALT 6 U/L (7-52) L 04/01/16 04:48 Alkaline Phosphatase 56 U/L (34-104) 04/01/16 04:48 Ammonia 32 umol/L (16-53) 03/29/16 05:00 B-Natriuretic Peptide 75.9 pg/mL (5.0-100.0) 04/01/16 04:48 Total Protein 6.9 gm/dL (6.0-8.3) 04/01/16 04:48 Albumin 2.8 gm/dL (4.2-5.5) L 04/01/16 04:48 Globulin 4.1 gm/dL 04/01/16 04:48 Albumin/Globulin Ratio 0.7 (1.0-1.8) L 04/01/16 04:48 Prealbumin 15 mg/dL (10-36) 04/01/16 04:48 Triglycerides 78 mg/dL (<150) 04/01/16 04:48 Cholesterol 61 mg/dL (<200) 04/01/16 04:48 Carcinoembryonic Ag 2.7 ng/mL (0.0-4.7) 03/18/16 06:19 Vitamin B12 389 pg/mL (211-946) 03/10/16 04:30 Folic Acid 13.3 ng/mL (>3.0) 03/10/16 04:30 TSH 2.57 uIU/ml (0.34-5.60) 03/10/16 04:30 Urine Source CATH 03/13/16 16:00 Urine Color YELLOW 03/13/16 16:00 Urine Clarity CLEAR (CLEAR) 03/13/16 16:00 Urine pH 5.5 03/13/16 16:00 Ur Specific [place] 1.010 (1.005-1.030) 03/13/16 16:00 Urine Protein NEGATIVE mg/dL (NEGATIVE) 03/13/16 16:00 Urine Glucose (UA) NEGATIVE mg/dL (NEGATIVE) 03/13/16 16:00 Urine Ketones NEGATIVE mg/dL (NEGATIVE) 03/13/16 16:00 Urine Blood LARGE (NEGATIVE) H 03/13/16 16:00 Urine Nitrate NEGATIVE (NEGATIVE) 03/13/16 16:00 Urine Bilirubin NEGATIVE (NEGATIVE) 03/13/16 16:00 Urine Urobilinogen 1.0 E.U./dL (0.2 - 1.0) 03/13/16 16:00 Ur Leukocyte Esterase TRACE (NEGATIVE) H 03/13/16 16:00 Urine RBC 10-25 /hpf (0-5) H 03/13/16 16:00 Urine WBC 6-10 /hpf (0-5) H 03/13/16 16:00 Ur Epithelial Cells FEW /lpf (FEW) 03/13/16 16:00 Urine Bacteria OCCASIONAL /hpf (NONE SEEN) 03/13/16 16:00 Vancomycin Trough 12.5 ug/mL (10-20) 04/02/16 09:00 Blood Type B POSITIVE 03/29/16 09:15 Antibody Screen NEGATIVE 03/29/16 09:15 Crossmatch See Detail 03/29/16 09:15 - Physical Exam Vitals and I&O: Vital Signs Temp 96.8 F 04/03/16 07:49 Pulse 76 04/03/16 08:25 Resp 20 04/03/16 08:25 BP 138/65 04/03/16 07:49 Pulse Ox 95 04/03/16 08:25 Intake & Output 04/02/16 04/03/16 04/03/16 18:59 06:59 18:59 Intake Total 2690 1010 Output Total 1200 Balance 1490 1010 Intake: Intake, IV Amount 1550 250 D5-0.45NS 1,000 ml @ 40 1000 mls/hr IV .Q24H [facility] Rx#: [id number] Erythromycin Lact 500 mg 250 250 In Sodium Chloride 0.9% 250 ml @ 100 mls/hr IV Q12HR@1100,2300 [facility] Rx#: [id number] Meropenem 1 gm In Sodium 100 Chloride 0.9% 100 ml @ 100 mls/hr IV Q12HR@0200, 1400 [facility] Rx#:[id number] metroNIDAZOLE 500mg/NS 200 100mL 500 mg In 100 ml @ 100 mls/hr IV Q8HR [facility] Rx #:[id number] Oral 300 200 TPN/PPN 840 560 Output: Urine 1000 Other 200 Other: # Bowel Movements 1 Stool Characteristics Liquid Brown Active Medications: Current Medications Acetaminophen (Tylenol) 650 mg PO Q6HR PRN PRN Reason: PAIN OR TEMP >100 Stop: 05/08/16 21:33 Last Admin: 03/26/16 11:31 Dose: 650 mg Acetaminophen (Tylenol 650mg Supp) 650 mg RC Q6H PRN PRN Reason: Fever > 101 Stop: 05/28/16 12:49 Last Admin: 03/29/16 16:42 Dose: 650 mg Acetaminophen (Tylenol 650mg Supp) 650 mg RC Q4H PRN PRN Reason: Fever > 101 Stop: 05/28/16 12:55 Acetaminophen/Codeine Phosphate (Tylenol W/Codeine #3) 1 tab PO Q4HR PRN PRN Reason: PAIN Stop: 05/08/16 21:33 Al Hydrox/Mg Hydrox/Simethicone (Maalox) 30 ml PO Q4HR PRN PRN Reason: Indigestion Stop: 05/08/16 21:33 Albuterol Sulfate (Albuterol 2.5mg/3ml Neb Ud) 2.5 mg IH Q2HR PRN PRN Reason: Shortness of Breath or Wheeze Stop: 05/08/16 21:37 Albuterol Sulfate (Albuterol 2.5mg/3ml Neb Ud) 2.5 mg HHN Q4HRT [facility] Stop: 05/20/16 18:59 Last Admin: 04/03/16 08:25 Dose: Not Given Donepezil HCl (Aricept) 10 mg PO HS [facility] Stop: 05/09/16 20:59 Last Admin: 04/02/16 21:27 Dose: 10 mg Enoxaparin Sodium (Lovenox) 30 mg SUBQ DAILY [facility] Stop: 05/28/16 14:59 Last Admin: 04/03/16 08:37 Dose: 30 mg Dextrose/Sodium Chloride (D5-0.45ns) 1,000 mls @ 40 mls/hr IV .Q24H [facility] Stop: 05/18/16 12:59 Last Admin: 04/03/16 08:38 Dose: 40 mls/hr Norepinephrine Bitartrate 4 mg (/ Dextrose) 254 mls @ 15.24 mls/hr IV TITR PRN ; Protocol; 4 MCG/MIN PRN Reason: BP MAINTENANCE (PER PROTOCOL) Stop: 05/20/16 11:23 Last Titration: 03/21/16 14:45 Dose: 0 mcg/min, 0 mls/hr Erythromycin Lactobionate 500 (mg/ Sodium Chloride) 250 mls @ 100 mls/hr IV Q12HR@1100,2300 [facility] Stop: 05/29/16 10:59 Last Admin: 04/03/16 12:01 Dose: 100 mls/hr Meropenem 1 gm/ Sodium (Chloride) 100 mls @ 100 mls/hr IV Q12HR@0200,1400 [facility] Stop: 05/27/16 20:59 Last Admin: 04/03/16 02:04 Dose: 100 mls/hr Multivitamins/Minerals 10 ml/Amino Acids/ Fat Emulsion Intravenous/ Sterile Water 1,680 mls @ 70 mls/hr IV .Q24H [facility] Stop: 05/27/16 15:59 Last Admin: 04/01/16 17:02 Dose: 70 mls/hr Vancomycin HCl 1.75 gm/ Sodium (Chloride) 500 mls @ 250 mls/hr IV Q24H [facility] Stop: 06/02/16 08:59 Last Admin: 04/03/16 09:45 Dose: 250 mls/hr Insulin Aspart (Novolog Insulin Sliding Scale) 0 units SUBQ Q6HR [facility] PRN Reason: Protocol Stop: 05/25/16 17:59 Last Admin: 04/03/16 06:34 Dose: Not Given Lactobacillus Rhamnosus (Culturelle) 1 each PO DAILY [facility] Stop: 05/22/16 08:59 Last Admin: 04/03/16 08:37 Dose: 1 each Meclizine HCl (Antivert) 25 mg PO DAILY PRN PRN Reason: Nausea / Vomiting Stop: 05/08/16 21:37 Last Admin: 03/26/16 11:32 Dose: 25 mg Metoclopramide HCl (Reglan) 10 mg IVP Q8HR [facility] Stop: 05/23/16 12:59 Last Admin: 04/03/16 05:13 Dose: 10 mg Mirtazapine (Remeron) 7.5 mg PO HS [facility] PRN Reason: Protocol Stop: 05/09/16 20:59 Last Admin: 04/02/16 21:26 Dose: 7.5 mg Miscellaneous (Vte Chemical Prophylaxis Screen/ Admission) 1 ea PRN PRN PRN Reason: PROTOCOL Stop: 05/10/16 17:12 Miscellaneous (Tpn Per Pharmacy) 1 ea MC DAILY [facility] Stop: 05/20/16 14:39 Miscellaneous (Probiotic Screen) 1 ea PRN PRN PRN Reason: PROTOCOL Stop: 05/21/16 14:39 Ondansetron HCl (Zofran) 4 mg IV Q8H PRN PRN Reason: Nausea / Vomiting Stop: 05/08/16 21:37 Last Admin: 03/21/16 20:01 Dose: 4 mg Pantoprazole Sodium (Protonix) 40 mg IVP BID [facility] Stop: 05/31/16 16:59 Last Admin: 04/03/16 08:37 Dose: 40 mg Quetiapine Fumarate (Seroquel) 100 mg PO QPM [facility] PRN Reason: Protocol Stop: 05/09/16 16:59 Last Admin: 04/02/16 16:22 Dose: 100 mg Tamsulosin HCl (Flomax) 0.4 mg PO DAILY [facility] Stop: 05/09/16 08:59 Last Admin: 04/03/16 08:37 Dose: 0.4 mg General: lethargic, congested HEENT: NC/AT, PERRLA Neck: Supple Lungs: congested, rales Cardiovascular: RRR, Normal S1, Normal S2 Abdomen: soft non-tender, non-distended, other (dressing) Extremities: excoriation, contracture Neurological: no change - Procedures Procedures: Procedures Procedure Code Date APPENDECTOMY ADD-ON 16665 03/10/16 BIOPSY OF BOWEL 74920 03/10/16 BYPASS DESCENDING COLON TO CUTANEOUS, OPEN APPROACH [id number] 03/10/16 COLOSTOMY 79405 03/10/16 EGD BIOPSY SINGLE/MULTIPLE 12430 03/10/16 EXCISION OF ILEUM, OPEN APPROACH [id number] 03/10/16 EXCISION OF LARGE INTESTINE, PERCUTANEOUS APPROACH, DIAGN [id number] 03/10/16 EXCISION OF STOMACH, ENDO, DIAGN [id number] 03/10/16 FREEING OF BOWEL ADHESION 99995 03/10/16 GROUP PSYCHOTHERAPY 44025 06/08/03 INDIVID PSYCHOTHERAP NEC 94.39 06/08/03 OTHER GROUP THERAPY 94.44 06/08/03 RELEASE ILEUM, OPEN APPROACH [id number] 03/10/16 REMOVAL OF SMALL INTESTINE 67899 03/10/16 RESECTION OF APPENDIX, OPEN APPROACH [id number] 03/10/16 Internal Medicine Assmt/Plan - Assessment Assessment: colon mass- adenoca s\p recection ileus colostomy jonathan drain GI BLEED ANEMIA HYPOTENSION leukocytosis malnutrition afib-paroxysmal - Plan Plan: colostomy care picc line tpn cont on iv fluid abx check culture id and gi follow up dw rn check labs s\p sugical resection will place on therapeutic dose of lovenox
--- NOTE | 2016-04-03 18:19 | General Progress Note ---
Subjective - Review of Systems Service Date: 04/03/16 Subjective: EVENTS NOTED. JOSEPH CLEAR LIQUIDS. COLOSTOMY FUNCTIONAL. Objective - Results Result Diagrams: 04/03/16 06:20 04/03/16 06:20 Recent Labs: Laboratory Last Values WBC 15.2 Th/cmm (4.8-10.8) H 04/03/16 06:20 RBC 3.57 Mil/cmm (3.80-5.80) L 04/03/16 06:20 Hgb 9.8 gm/dL (12.6-17.4) L 04/03/16 06:20 Hct 29.8 % (39.0-49.0) L 04/03/16 06:20 MCV 83.5 fl (80-99) 04/03/16 06:20 MCH 27.5 pg (27.0-31.0) 04/03/16 06:20 MCHC Differential 33.0 pg (28.0-36.0) 04/03/16 06:20 RDW 17.5 % (11.5-20.0) 04/03/16 06:20 Plt Count 409 Th/cmm (150-400) H 04/03/16 06:20 MPV 8.4 fl 04/03/16 06:20 Neutrophils % 78.5 % (40.0-80.0) 04/02/16 06:15 Band Neutrophils % 3 % (0-10) 04/01/16 04:48 Lymphocytes % 9.6 % (20.0-50.0) L 04/02/16 06:15 Monocytes % 6.4 % (2.0-10.0) 04/02/16 06:15 Eosinophils % 5.3 % (0.0-5.0) H 04/02/16 06:15 Basophils % 0.2 % (0.0-2.0) 04/02/16 06:15 Neutrophils (Manual) 74 % (40-80) 04/03/16 06:20 Lymphocytes 13 % (20-50) L 04/03/16 06:20 Monocytes 6 % (2-10) 04/03/16 06:20 Eosinophils 7 % (0-5) H 04/03/16 06:20 Basophils 1 % (0-3) 03/12/16 08:00 Metamyelocytes 1 % (0-0) H 03/29/16 05:00 Platelet Estimate ADEQUATE (NORMAL) 04/03/16 06:20 Platelet Morphology NORMAL (NORMAL) 04/03/16 06:20 Polychromasia 1+ 03/24/16 06:45 Anisocytosis 1+ 04/01/16 04:48 Microcytosis 1+ 03/21/16 06:19 RBC Morph Micro Appear NORMAL (NORMAL) 04/03/16 06:20 PT 11.4 SECONDS (9.5-11.5) 03/24/16 20:04 INR 1.14 (0.5-1.4) 03/24/16 20:04 PTT (Actin FS) 30.2 SECONDS (26.0-38.0) 03/24/16 20:04 Specimen Source Arterial 03/21/16 16:45 Sample Site Right Radial 03/21/16 16:45 pH 7.37 (7.35-7.45) 03/21/16 16:45 pCO2 40.0 mmHg (35.0-45.0) 03/21/16 16:45 pO2 85.0 mmHg (80.0-100.0) 03/21/16 16:45 HCO3 23.1 mmol/L (20.0-26.0) 03/21/16 16:45 Base Excess -2.0 mmol/L (-3.0-3.0) 03/21/16 16:45 O2 Saturation 96.0 % (92.0-100.0) 03/21/16 16:45 Galo Test YES 03/21/16 16:45 Vent Rate NA 03/21/16 16:45 Inspired O2 40 03/21/16 16:45 Tidal Volume NA 03/21/16 16:45 PEEP NA 03/21/16 16:45 Pressure (ins/psv/peep) NA 03/21/16 16:45 Critical Value E.HERNANDEZ 03/21/16 16:45 Sodium 132 mEq/L (136-145) L 04/03/16 06:20 Potassium 4.3 mEq/L (3.5-5.1) 04/03/16 06:20 Chloride 104 mEq/L (98-107) 04/03/16 06:20 Carbon Dioxide 24.5 mEq/L (21.0-31.0) 04/03/16 06:20 Anion Gap 7.8 (7.0-16.0) 04/03/16 06:20 BUN 16 mg/dL (7-25) 04/03/16 06:20 Creatinine 0.8 mg/dL (0.7-1.3) 04/03/16 06:20 Est GFR ( Amer) > 60.0 ml/min (>90) 04/03/16 06:20 Est GFR (Non-Af Amer) > 60.0 ml/min 04/03/16 06:20 BUN/Creatinine Ratio 20.0 04/03/16 06:20 Glucose 123 mg/dL (70-105) H 04/03/16 06:20 POC Glucose 126 MG/DL (70 - 105) H 04/03/16 11:19 Hemoglobin A1c % 5.1 % (4.0-6.0) 03/26/16 06:10 Whole Bld Lactic Acid 1.80 mmol/L (0.60-2.00) 03/26/16 06:10 Calcium 8.9 mg/dL (8.6-10.3) 04/03/16 06:20 Phosphorus 2.9 mg/dL (2.5-5.0) 04/03/16 06:20 Magnesium 2.1 mg/dL (1.9-2.7) 04/03/16 06:20 Ferritin 136 ng/mL (30-400) 03/19/16 07:40 Total Bilirubin 0.4 mg/dL (0.3-1.0) 04/01/16 04:48 AST 10 U/L (13-39) L 04/01/16 04:48 ALT 6 U/L (7-52) L 04/01/16 04:48 Alkaline Phosphatase 56 U/L (34-104) 04/01/16 04:48 Ammonia 32 umol/L (16-53) 03/29/16 05:00 B-Natriuretic Peptide 75.9 pg/mL (5.0-100.0) 04/01/16 04:48 Total Protein 6.9 gm/dL (6.0-8.3) 04/01/16 04:48 Albumin 2.8 gm/dL (4.2-5.5) L 04/01/16 04:48 Globulin 4.1 gm/dL 04/01/16 04:48 Albumin/Globulin Ratio 0.7 (1.0-1.8) L 04/01/16 04:48 Prealbumin 15 mg/dL (10-36) 04/01/16 04:48 Triglycerides 78 mg/dL (<150) 04/01/16 04:48 Cholesterol 61 mg/dL (<200) 04/01/16 04:48 Carcinoembryonic Ag 2.7 ng/mL (0.0-4.7) 03/18/16 06:19 Vitamin B12 389 pg/mL (211-946) 03/10/16 04:30 Folic Acid 13.3 ng/mL (>3.0) 03/10/16 04:30 TSH 2.57 uIU/ml (0.34-5.60) 03/10/16 04:30 Urine Source CATH 03/13/16 16:00 Urine Color YELLOW 03/13/16 16:00 Urine Clarity CLEAR (CLEAR) 03/13/16 16:00 Urine pH 5.5 03/13/16 16:00 Ur Specific [place] 1.010 (1.005-1.030) 03/13/16 16:00 Urine Protein NEGATIVE mg/dL (NEGATIVE) 03/13/16 16:00 Urine Glucose (UA) NEGATIVE mg/dL (NEGATIVE) 03/13/16 16:00 Urine Ketones NEGATIVE mg/dL (NEGATIVE) 03/13/16 16:00 Urine Blood LARGE (NEGATIVE) H 03/13/16 16:00 Urine Nitrate NEGATIVE (NEGATIVE) 03/13/16 16:00 Urine Bilirubin NEGATIVE (NEGATIVE) 03/13/16 16:00 Urine Urobilinogen 1.0 E.U./dL (0.2 - 1.0) 03/13/16 16:00 Ur Leukocyte Esterase TRACE (NEGATIVE) H 03/13/16 16:00 Urine RBC 10-25 /hpf (0-5) H 03/13/16 16:00 Urine WBC 6-10 /hpf (0-5) H 03/13/16 16:00 Ur Epithelial Cells FEW /lpf (FEW) 03/13/16 16:00 Urine Bacteria OCCASIONAL /hpf (NONE SEEN) 03/13/16 16:00 Vancomycin Trough 12.5 ug/mL (10-20) 04/02/16 09:00 Blood Type B POSITIVE 03/29/16 09:15 Antibody Screen NEGATIVE 03/29/16 09:15 Crossmatch See Detail 03/29/16 09:15 - Physical Exam Vitals and I&O: Vital Signs Temp 97.8 F 04/03/16 16:00 Pulse 92 04/03/16 16:03 Resp 20 04/03/16 16:03 BP 112/65 04/03/16 16:00 Pulse Ox 97 04/03/16 16:03 Intake & Output 04/02/16 04/03/16 04/03/16 18:59 06:59 18:59 Intake Total 2690 1110 Output Total 1200 Balance 1490 1110 Intake: Intake, IV Amount 1550 350 D5-0.45NS 1,000 ml @ 40 1000 mls/hr IV .Q24H [facility] Rx#: [id number] Erythromycin Lact 500 mg 250 250 In Sodium Chloride 0.9% 250 ml @ 100 mls/hr IV Q12HR@1100,2300 [facility] Rx#: [id number] Meropenem 1 gm In Sodium 100 100 Chloride 0.9% 100 ml @ 100 mls/hr IV Q12HR@0200, 1400 [facility] Rx#:[id number] metroNIDAZOLE 500mg/NS 200 100mL 500 mg In 100 ml @ 100 mls/hr IV Q8HR [facility] Rx #:[id number] Oral 300 200 TPN/PPN 840 560 Output: Urine 1000 Other 200 Other: # Bowel Movements 1 Stool Characteristics Liquid Brown Active Medications: Current Medications Acetaminophen (Tylenol) 650 mg PO Q6HR PRN PRN Reason: PAIN OR TEMP >100 Stop: 05/08/16 21:33 Last Admin: 03/26/16 11:31 Dose: 650 mg Acetaminophen (Tylenol 650mg Supp) 650 mg RC Q6H PRN PRN Reason: Fever > 101 Stop: 05/28/16 12:49 Last Admin: 03/29/16 16:42 Dose: 650 mg Acetaminophen (Tylenol 650mg Supp) 650 mg RC Q4H PRN PRN Reason: Fever > 101 Stop: 05/28/16 12:55 Acetaminophen/Codeine Phosphate (Tylenol W/Codeine #3) 1 tab PO Q4HR PRN PRN Reason: PAIN Stop: 05/08/16 21:33 Al Hydrox/Mg Hydrox/Simethicone (Maalox) 30 ml PO Q4HR PRN PRN Reason: Indigestion Stop: 05/08/16 21:33 Albuterol Sulfate (Albuterol 2.5mg/3ml Neb Ud) 2.5 mg IH Q2HR PRN PRN Reason: Shortness of Breath or Wheeze Stop: 05/08/16 21:37 Albuterol Sulfate (Albuterol 2.5mg/3ml Neb Ud) 2.5 mg HHN Q4HRT [facility] Stop: 05/20/16 18:59 Last Admin: 04/03/16 16:03 Dose: Not Given Donepezil HCl (Aricept) 10 mg PO HS [facility] Stop: 05/09/16 20:59 Last Admin: 04/02/16 21:27 Dose: 10 mg Enoxaparin Sodium (Lovenox) 30 mg SUBQ DAILY [facility] Stop: 05/28/16 14:59 Last Admin: 04/03/16 08:37 Dose: 30 mg Dextrose/Sodium Chloride (D5-0.45ns) 1,000 mls @ 40 mls/hr IV .Q24H [facility] Stop: 05/18/16 12:59 Last Admin: 04/03/16 08:38 Dose: 40 mls/hr Norepinephrine Bitartrate 4 mg (/ Dextrose) 254 mls @ 15.24 mls/hr IV TITR PRN ; Protocol; 4 MCG/MIN PRN Reason: BP MAINTENANCE (PER PROTOCOL) Stop: 05/20/16 11:23 Last Titration: 03/21/16 14:45 Dose: 0 mcg/min, 0 mls/hr Erythromycin Lactobionate 500 (mg/ Sodium Chloride) 250 mls @ 100 mls/hr IV Q12HR@1100,2300 [facility] Stop: 05/29/16 10:59 Last Admin: 04/03/16 12:01 Dose: 100 mls/hr Meropenem 1 gm/ Sodium (Chloride) 100 mls @ 100 mls/hr IV Q12HR@0200,1400 [facility] Stop: 05/27/16 20:59 Last Admin: 04/03/16 14:48 Dose: 100 mls/hr Multivitamins/Minerals 10 ml/Amino Acids/ Fat Emulsion Intravenous/ Sterile Water 1,680 mls @ 70 mls/hr IV .Q24H [facility] Stop: 05/27/16 15:59 Last Admin: 04/01/16 17:02 Dose: 70 mls/hr Vancomycin HCl 1.75 gm/ Sodium (Chloride) 500 mls @ 250 mls/hr IV Q24H [facility] Stop: 06/02/16 08:59 Last Admin: 04/03/16 09:45 Dose: 250 mls/hr Insulin Aspart (Novolog Insulin Sliding Scale) 0 units SUBQ Q6HR [facility] PRN Reason: Protocol Stop: 05/25/16 17:59 Last Admin: 04/03/16 11:40 Dose: Not Given Lactobacillus Rhamnosus (Culturelle) 1 each PO DAILY [facility] Stop: 05/22/16 08:59 Last Admin: 04/03/16 08:37 Dose: 1 each Meclizine HCl (Antivert) 25 mg PO DAILY PRN PRN Reason: Nausea / Vomiting Stop: 05/08/16 21:37 Last Admin: 03/26/16 11:32 Dose: 25 mg Metoclopramide HCl (Reglan) 10 mg IVP Q8HR [facility] Stop: 05/23/16 12:59 Last Admin: 04/03/16 13:25 Dose: 10 mg Mirtazapine (Remeron) 7.5 mg PO HS [facility] PRN Reason: Protocol Stop: 05/09/16 20:59 Last Admin: 04/02/16 21:26 Dose: 7.5 mg Miscellaneous (Vte Chemical Prophylaxis Screen/ Admission) 1 ea PRN PRN PRN Reason: PROTOCOL Stop: 05/10/16 17:12 Miscellaneous (Tpn Per Pharmacy) 1 ea MC DAILY [facility] Stop: 05/20/16 14:39 Miscellaneous (Probiotic Screen) 1 ea PRN PRN PRN Reason: PROTOCOL Stop: 05/21/16 14:39 Ondansetron HCl (Zofran) 4 mg IV Q8H PRN PRN Reason: Nausea / Vomiting Stop: 05/08/16 21:37 Last Admin: 03/21/16 20:01 Dose: 4 mg Pantoprazole Sodium (Protonix) 40 mg IVP BID [facility] Stop: 05/31/16 16:59 Last Admin: 04/03/16 16:36 Dose: 40 mg Quetiapine Fumarate (Seroquel) 100 mg PO QPM [facility] PRN Reason: Protocol Stop: 05/09/16 16:59 Last Admin: 04/03/16 16:36 Dose: 100 mg Tamsulosin HCl (Flomax) 0.4 mg PO DAILY [facility] Stop: 05/09/16 08:59 Last Admin: 04/03/16 08:37 Dose: 0.4 mg General: Alert, Oriented x3 HEENT: Atraumatic Neck: Supple Cardiovascular: Regular rate Lungs: Clear to auscultation Abdomen: Bowel sounds, Soft, Other (INTACT LLQ COLOSTOMY) - Procedures Procedures: Procedures Procedure Code Date APPENDECTOMY ADD-ON 31138 03/10/16 BIOPSY OF BOWEL 67233 03/10/16 BYPASS DESCENDING COLON TO CUTANEOUS, OPEN APPROACH [id number] 03/10/16 COLOSTOMY 48426 03/10/16 EGD BIOPSY SINGLE/MULTIPLE 92338 03/10/16 EXCISION OF ILEUM, OPEN APPROACH [id number] 03/10/16 EXCISION OF LARGE INTESTINE, PERCUTANEOUS APPROACH, DIAGN [id number] 03/10/16 EXCISION OF STOMACH, ENDO, DIAGN [id number] 03/10/16 FREEING OF BOWEL ADHESION 82084 03/10/16 GROUP PSYCHOTHERAPY 95721 06/08/03 INDIVID PSYCHOTHERAP NEC 94.39 06/08/03 OTHER GROUP THERAPY 94.44 06/08/03 RELEASE ILEUM, OPEN APPROACH [id number] 03/10/16 REMOVAL OF SMALL INTESTINE 14054 03/10/16 RESECTION OF APPENDIX, OPEN APPROACH [id number] 03/10/16 Assessment/Plan - Problem List Patient Problems: All Active Problems BLOOD CLOT IN STOOL (Acute) - Assessment Assessment: 1. 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 2. POST OP ILEUS, IMPROVED. 3. ANEMIA. 4. GASTRITIS PER EGD. - Plan Plan: 1. POST OP CARE. 2. REGLAN AND ERYTHROMYCIN. 3. COLOSTOMY CARE. 4. ORAL DIET TOLERATED. 5. TPN TILL ORAL INTAKE NORMALIZES. 6. MONITOR LABS.
--- NOTE | 2016-04-03 23:44 | Infectious Disease Prog Note ---
Infectious Disease Subjective - Review of Systems Service Date: 04/03/16 Subjective: There is no fever. Infectious Disease Objective - Results Result Diagrams: 04/03/16 06:20 04/03/16 06:20 Recent Labs: Laboratory Last Values WBC 15.2 Th/cmm (4.8-10.8) H 04/03/16 06:20 RBC 3.57 Mil/cmm (3.80-5.80) L 04/03/16 06:20 Hgb 9.8 gm/dL (12.6-17.4) L 04/03/16 06:20 Hct 29.8 % (39.0-49.0) L 04/03/16 06:20 MCV 83.5 fl (80-99) 04/03/16 06:20 MCH 27.5 pg (27.0-31.0) 04/03/16 06:20 MCHC Differential 33.0 pg (28.0-36.0) 04/03/16 06:20 RDW 17.5 % (11.5-20.0) 04/03/16 06:20 Plt Count 409 Th/cmm (150-400) H 04/03/16 06:20 MPV 8.4 fl 04/03/16 06:20 Neutrophils % 78.5 % (40.0-80.0) 04/02/16 06:15 Band Neutrophils % 3 % (0-10) 04/01/16 04:48 Lymphocytes % 9.6 % (20.0-50.0) L 04/02/16 06:15 Monocytes % 6.4 % (2.0-10.0) 04/02/16 06:15 Eosinophils % 5.3 % (0.0-5.0) H 04/02/16 06:15 Basophils % 0.2 % (0.0-2.0) 04/02/16 06:15 Neutrophils (Manual) 74 % (40-80) 04/03/16 06:20 Lymphocytes 13 % (20-50) L 04/03/16 06:20 Monocytes 6 % (2-10) 04/03/16 06:20 Eosinophils 7 % (0-5) H 04/03/16 06:20 Basophils 1 % (0-3) 03/12/16 08:00 Metamyelocytes 1 % (0-0) H 03/29/16 05:00 Platelet Estimate ADEQUATE (NORMAL) 04/03/16 06:20 Platelet Morphology NORMAL (NORMAL) 04/03/16 06:20 Polychromasia 1+ 03/24/16 06:45 Anisocytosis 1+ 04/01/16 04:48 Microcytosis 1+ 03/21/16 06:19 RBC Morph Micro Appear NORMAL (NORMAL) 04/03/16 06:20 PT 11.4 SECONDS (9.5-11.5) 03/24/16 20:04 INR 1.14 (0.5-1.4) 03/24/16 20:04 PTT (Actin FS) 30.2 SECONDS (26.0-38.0) 03/24/16 20:04 Specimen Source Arterial 03/21/16 16:45 Sample Site Right Radial 03/21/16 16:45 pH 7.37 (7.35-7.45) 03/21/16 16:45 pCO2 40.0 mmHg (35.0-45.0) 03/21/16 16:45 pO2 85.0 mmHg (80.0-100.0) 03/21/16 16:45 HCO3 23.1 mmol/L (20.0-26.0) 03/21/16 16:45 Base Excess -2.0 mmol/L (-3.0-3.0) 03/21/16 16:45 O2 Saturation 96.0 % (92.0-100.0) 03/21/16 16:45 Galo Test YES 03/21/16 16:45 Vent Rate NA 03/21/16 16:45 Inspired O2 40 03/21/16 16:45 Tidal Volume NA 03/21/16 16:45 PEEP NA 03/21/16 16:45 Pressure (ins/psv/peep) NA 03/21/16 16:45 Critical Value E.HERNANDEZ 03/21/16 16:45 Sodium 132 mEq/L (136-145) L 04/03/16 06:20 Potassium 4.3 mEq/L (3.5-5.1) 04/03/16 06:20 Chloride 104 mEq/L (98-107) 04/03/16 06:20 Carbon Dioxide 24.5 mEq/L (21.0-31.0) 04/03/16 06:20 Anion Gap 7.8 (7.0-16.0) 04/03/16 06:20 BUN 16 mg/dL (7-25) 04/03/16 06:20 Creatinine 0.8 mg/dL (0.7-1.3) 04/03/16 06:20 Est GFR ( Amer) > 60.0 ml/min (>90) 04/03/16 06:20 Est GFR (Non-Af Amer) > 60.0 ml/min 04/03/16 06:20 BUN/Creatinine Ratio 20.0 04/03/16 06:20 Glucose 123 mg/dL (70-105) H 04/03/16 06:20 POC Glucose 127 MG/DL (70 - 105) H 04/03/16 17:33 Hemoglobin A1c % 5.1 % (4.0-6.0) 03/26/16 06:10 Whole Bld Lactic Acid 1.80 mmol/L (0.60-2.00) 03/26/16 06:10 Calcium 8.9 mg/dL (8.6-10.3) 04/03/16 06:20 Phosphorus 2.9 mg/dL (2.5-5.0) 04/03/16 06:20 Magnesium 2.1 mg/dL (1.9-2.7) 04/03/16 06:20 Ferritin 136 ng/mL (30-400) 03/19/16 07:40 Total Bilirubin 0.4 mg/dL (0.3-1.0) 04/01/16 04:48 AST 10 U/L (13-39) L 04/01/16 04:48 ALT 6 U/L (7-52) L 04/01/16 04:48 Alkaline Phosphatase 56 U/L (34-104) 04/01/16 04:48 Ammonia 32 umol/L (16-53) 03/29/16 05:00 B-Natriuretic Peptide 75.9 pg/mL (5.0-100.0) 04/01/16 04:48 Total Protein 6.9 gm/dL (6.0-8.3) 04/01/16 04:48 Albumin 2.8 gm/dL (4.2-5.5) L 04/01/16 04:48 Globulin 4.1 gm/dL 04/01/16 04:48 Albumin/Globulin Ratio 0.7 (1.0-1.8) L 04/01/16 04:48 Prealbumin 15 mg/dL (10-36) 04/01/16 04:48 Triglycerides 78 mg/dL (<150) 04/01/16 04:48 Cholesterol 61 mg/dL (<200) 04/01/16 04:48 Carcinoembryonic Ag 2.7 ng/mL (0.0-4.7) 03/18/16 06:19 Vitamin B12 389 pg/mL (211-946) 03/10/16 04:30 Folic Acid 13.3 ng/mL (>3.0) 03/10/16 04:30 TSH 2.57 uIU/ml (0.34-5.60) 03/10/16 04:30 Urine Source CATH 03/13/16 16:00 Urine Color YELLOW 03/13/16 16:00 Urine Clarity CLEAR (CLEAR) 03/13/16 16:00 Urine pH 5.5 03/13/16 16:00 Ur Specific [place] 1.010 (1.005-1.030) 03/13/16 16:00 Urine Protein NEGATIVE mg/dL (NEGATIVE) 03/13/16 16:00 Urine Glucose (UA) NEGATIVE mg/dL (NEGATIVE) 03/13/16 16:00 Urine Ketones NEGATIVE mg/dL (NEGATIVE) 03/13/16 16:00 Urine Blood LARGE (NEGATIVE) H 03/13/16 16:00 Urine Nitrate NEGATIVE (NEGATIVE) 03/13/16 16:00 Urine Bilirubin NEGATIVE (NEGATIVE) 03/13/16 16:00 Urine Urobilinogen 1.0 E.U./dL (0.2 - 1.0) 03/13/16 16:00 Ur Leukocyte Esterase TRACE (NEGATIVE) H 03/13/16 16:00 Urine RBC 10-25 /hpf (0-5) H 03/13/16 16:00 Urine WBC 6-10 /hpf (0-5) H 03/13/16 16:00 Ur Epithelial Cells FEW /lpf (FEW) 03/13/16 16:00 Urine Bacteria OCCASIONAL /hpf (NONE SEEN) 03/13/16 16:00 Vancomycin Trough 12.5 ug/mL (10-20) 04/02/16 09:00 Blood Type B POSITIVE 03/29/16 09:15 Antibody Screen NEGATIVE 03/29/16 09:15 Crossmatch See Detail 03/29/16 09:15 - Physical Exam Vitals and I&O: Vital Signs Temp 100.0 F 04/03/16 20:00 Pulse 101 04/03/16 20:00 Resp 18 04/03/16 20:00 BP 113/58 04/03/16 20:00 Pulse Ox 99 04/03/16 20:00 Intake & Output 04/03/16 04/03/16 04/04/16 06:59 18:59 06:59 Intake Total 8061 633 7899 Output Total 1800 Balance 1110 850 -710 Intake: Intake, IV Amount 350 850 Erythromycin Lact 500 mg 250 250 In Sodium Chloride 0.9% 250 ml @ 100 mls/hr IV Q12HR@1100,2300 [facility] Rx#: [id number] Meropenem 1 gm In Sodium 100 100 Chloride 0.9% 100 ml @ 100 mls/hr IV Q12HR@0200, 1400 [facility] Rx#:[id number] Vancomycin HCl 1.75 gm In 500 Sodium Chloride 0.9% 500 ml @ 250 mls/hr IV Q24H [facility] Rx#:[id number] Oral 200 250 TPN/PPN 560 840 Output: Urine 1800 Other: Stool Characteristics Liquid Liquid Brown Brown Active Medications: Current Medications Acetaminophen (Tylenol) 650 mg PO Q6HR PRN PRN Reason: PAIN OR TEMP >100 Stop: 05/08/16 21:33 Last Admin: 03/26/16 11:31 Dose: 650 mg Acetaminophen (Tylenol 650mg Supp) 650 mg RC Q6H PRN PRN Reason: Fever > 101 Stop: 05/28/16 12:49 Last Admin: 03/29/16 16:42 Dose: 650 mg Acetaminophen (Tylenol 650mg Supp) 650 mg RC Q4H PRN PRN Reason: Fever > 101 Stop: 05/28/16 12:55 Acetaminophen/Codeine Phosphate (Tylenol W/Codeine #3) 1 tab PO Q4HR PRN PRN Reason: PAIN Stop: 05/08/16 21:33 Al Hydrox/Mg Hydrox/Simethicone (Maalox) 30 ml PO Q4HR PRN PRN Reason: Indigestion Stop: 05/08/16 21:33 Albuterol Sulfate (Albuterol 2.5mg/3ml Neb Ud) 2.5 mg IH Q2HR PRN PRN Reason: Shortness of Breath or Wheeze Stop: 05/08/16 21:37 Albuterol Sulfate (Albuterol 2.5mg/3ml Neb Ud) 2.5 mg HHN Q4HRT [facility] Stop: 05/20/16 18:59 Last Admin: 04/03/16 22:55 Dose: Not Given Donepezil HCl (Aricept) 10 mg PO HS [facility] Stop: 05/09/16 20:59 Last Admin: 04/03/16 20:56 Dose: 10 mg Enoxaparin Sodium (Lovenox) 30 mg SUBQ DAILY [facility] Stop: 05/28/16 14:59 Last Admin: 04/03/16 08:37 Dose: 30 mg Dextrose/Sodium Chloride (D5-0.45ns) 1,000 mls @ 40 mls/hr IV .Q24H [facility] Stop: 05/18/16 12:59 Last Admin: 04/03/16 08:38 Dose: 40 mls/hr Norepinephrine Bitartrate 4 mg (/ Dextrose) 254 mls @ 15.24 mls/hr IV TITR PRN ; Protocol; 4 MCG/MIN PRN Reason: BP MAINTENANCE (PER PROTOCOL) Stop: 05/20/16 11:23 Last Titration: 03/21/16 14:45 Dose: 0 mcg/min, 0 mls/hr Erythromycin Lactobionate 500 (mg/ Sodium Chloride) 250 mls @ 100 mls/hr IV Q12HR@1100,2300 [facility] Stop: 05/29/16 10:59 Last Admin: 04/03/16 22:34 Dose: 100 mls/hr Meropenem 1 gm/ Sodium (Chloride) 100 mls @ 100 mls/hr IV Q12HR@0200,1400 [facility] Stop: 05/27/16 20:59 Last Infusion: 04/03/16 18:17 Dose: Infused Multivitamins/Minerals 10 ml/Amino Acids/ Fat Emulsion Intravenous/ Sterile Water 1,680 mls @ 70 mls/hr IV .Q24H [facility] Stop: 05/27/16 15:59 Last Admin: 04/01/16 17:02 Dose: 70 mls/hr Vancomycin HCl 1.75 gm/ Sodium (Chloride) 500 mls @ 250 mls/hr IV Q24H [facility] Stop: 06/02/16 08:59 Last Infusion: 04/03/16 18:18 Dose: Infused Insulin Aspart (Novolog Insulin Sliding Scale) 0 units SUBQ Q6HR [facility] PRN Reason: Protocol Stop: 05/25/16 17:59 Last Admin: 04/03/16 11:40 Dose: Not Given Lactobacillus Rhamnosus (Culturelle) 1 each PO DAILY [facility] Stop: 05/22/16 08:59 Last Admin: 04/03/16 08:37 Dose: 1 each Meclizine HCl (Antivert) 25 mg PO DAILY PRN PRN Reason: Nausea / Vomiting Stop: 05/08/16 21:37 Last Admin: 03/26/16 11:32 Dose: 25 mg Metoclopramide HCl (Reglan) 10 mg IVP Q8HR [facility] Stop: 05/23/16 12:59 Last Admin: 04/03/16 20:55 Dose: 10 mg Mirtazapine (Remeron) 7.5 mg PO HS [facility] PRN Reason: Protocol Stop: 05/09/16 20:59 Last Admin: 04/03/16 20:56 Dose: 7.5 mg Miscellaneous (Vte Chemical Prophylaxis Screen/ Admission) 1 ea PRN PRN PRN Reason: PROTOCOL Stop: 05/10/16 17:12 Miscellaneous (Tpn Per Pharmacy) 1 ea MC DAILY [facility] Stop: 05/20/16 14:39 Miscellaneous (Probiotic Screen) 1 ea PRN PRN PRN Reason: PROTOCOL Stop: 05/21/16 14:39 Ondansetron HCl (Zofran) 4 mg IV Q8H PRN PRN Reason: Nausea / Vomiting Stop: 05/08/16 21:37 Last Admin: 03/21/16 20:01 Dose: 4 mg Pantoprazole Sodium (Protonix) 40 mg IVP BID [facility] Stop: 05/31/16 16:59 Last Admin: 04/03/16 16:36 Dose: 40 mg Quetiapine Fumarate (Seroquel) 100 mg PO QPM [facility] PRN Reason: Protocol Stop: 05/09/16 16:59 Last Admin: 04/03/16 16:36 Dose: 100 mg Tamsulosin HCl (Flomax) 0.4 mg PO DAILY [facility] Stop: 05/09/16 08:59 Last Admin: 04/03/16 08:37 Dose: 0.4 mg General: no acute distress, well developed, well nourished HEENT: atraumatic, normocephalic, PERRLA, EOMI Neck: supple, no thyromegaly, no lymphadenopathy Cardiovascular: S1S2, regular Lungs: clear to auscultation bilaterally, clear to percussion Abdomen: soft, distended, other (colostomy.), no tender Extremities: no cyanosis, no clubbing, no edema Neurological: awake, alert, oriented Skin: intact - Procedures Procedures: Procedures Procedure Code Date APPENDECTOMY ADD-ON 92418 03/10/16 BIOPSY OF BOWEL 07339 03/10/16 BYPASS DESCENDING COLON TO CUTANEOUS, OPEN APPROACH [id number] 03/10/16 COLOSTOMY 05332 03/10/16 EGD BIOPSY SINGLE/MULTIPLE 19424 03/10/16 EXCISION OF ILEUM, OPEN APPROACH [id number] 03/10/16 EXCISION OF LARGE INTESTINE, PERCUTANEOUS APPROACH, DIAGN [id number] 03/10/16 EXCISION OF STOMACH, ENDO, DIAGN [id number] 03/10/16 FREEING OF BOWEL ADHESION 41319 03/10/16 GROUP PSYCHOTHERAPY 21469 06/08/03 INDIVID PSYCHOTHERAP NEC 94.39 06/08/03 OTHER GROUP THERAPY 94.44 06/08/03 RELEASE ILEUM, OPEN APPROACH [id number] 03/10/16 REMOVAL OF SMALL INTESTINE 40879 03/10/16 RESECTION OF APPENDIX, OPEN APPROACH [id number] 03/10/16 Infectious Disease Assmt/Plan - Problem List Patient Problems: All Active Problems BLOOD CLOT IN STOOL (Acute) - Assessment Assessment: Impression: 1. Sepsis, fever and leukocytosis likley due to peritonitis. ?SBO. Improving. 2. Peritonitis. 3. GI Bleed resolved. 4. Dementia. 5. History of hypertension. 6. s/p colectomy and colostomy. 7. Intraabdominal mass? colon CA. associated colitis. 8. Suspect ileus versus SBO. RECOMMENDATIONS: Continue vanco IV and meropenem.
[2016-04-04] MEDS: Meropenem 1 GM in Sodium Chloride 0.9% 100 ML IV SCH ×2 (02:26→14:33)
[2016-04-04] MEDS: INSULIN ASPART SLIDING SCALE 100 UNITS/ML UNIT SUBQ SCH ×4 (02:30→18:50)
[2016-04-04] MEDS: Albuterol Nebulizer 2.5mg/3mL HHN SCH ×6 (03:09→23:51)
[2016-04-04] MEDS: Metoclopramide 5 mg/mL 2mL Vial IVP SCH ×3 (05:27→20:49)
[2016-04-04 06:43] LABS: % BASOPHILS 0.2 % (0.0-2.0); % EOSINOPHILS 5.2 % (0.0-5.0); % LYMPHOCYTES 13.5 % (20.0-50.0); % MONOCYTES 8.6 % (2.0-10.0); % NEUTROPHILS 72.5 % (40.0-80.0); HEMOGLOBIN 9.4 gm/dL (12.6-17.4); MEAN CELL VOLUME 79.9 fl (80-99); MEAN CORPUSCULAR HEMOGLOBIN 27.9 pg (27.0-31.0); MEAN CORPUSCULAR HGB CONC 34.8 pg (28.0-36.0); MEAN PLATELET VOLUME 8.1 fl; NEUTROPHILE ABSOLUTE 7.9 Th/cmm (1.8-8.0); PLATELET COUNT 461 Th/cmm (150-400); RED BLOOD COUNT 3.36 Mil/cmm (3.80-5.80)
[2016-04-04 06:59] LABS: HEMATOCRIT 26.8 % (39.0-49.0); WHITE BLOOD COUNT 10.9 Th/cmm (4.8-10.8)
[2016-04-04 07:08] LABS: ANION GAP 10.5 (7.0-16.0); BUN - UREA NITROGEN 17 mg/dL (7-25); BUN/CREATININE RATIO 18.9; CALCIUM SERUM 8.8 mg/dL (8.6-10.3); CHLORIDE 103 mEq/L (98-107); CREATININE - SERUM 0.9 mg/dL (0.7-1.3); GLUCOSE 122 mg/dL (70-105); POTASSIUM SERUM 4.5 mEq/L (3.5-5.1); SODIUM SERUM 135 mEq/L (136-145)
[2016-04-04] MEDS: Vancomycin HCl 1.75 GM in Sodium Chloride 0.9% 500 ML IV SCH (08:27)
[2016-04-04] MEDS: Enoxaparin 40 mg/0.4 mL 0.4mL Syr SUBQ SCH ×2 (08:28→08:41)
[2016-04-04] MEDS: Lactobacillus Rhamnosus 10 Billion CFU Capsule PO SCH (08:28)
[2016-04-04] MEDS: SODIUM CHLORIDE 0.9% IV SCH ×2 (11:21→23:10)
[2016-04-04] MEDS: ERYTHROMYCIN LACT IV SCH ×2 (11:21→23:10)
--- NOTE | 2016-04-04 12:02 | Infectious Disease Prog Note ---
Infectious Disease Subjective - Review of Systems Service Date: 04/04/16 Subjective: There is no fever. Infectious Disease Objective - Results Result Diagrams: 04/04/16 06:10 04/04/16 06:10 Recent Labs: Laboratory Last Values WBC 10.9 Th/cmm (4.8-10.8) H D 04/04/16 06:10 RBC 3.36 Mil/cmm (3.80-5.80) L 04/04/16 06:10 Hgb 9.4 gm/dL (12.6-17.4) L 04/04/16 06:10 Hct 26.8 % (39.0-49.0) L D 04/04/16 06:10 MCV 79.9 fl (80-99) L 04/04/16 06:10 MCH 27.9 pg (27.0-31.0) 04/04/16 06:10 MCHC Differential 34.8 pg (28.0-36.0) 04/04/16 06:10 RDW 18.0 % (11.5-20.0) 04/04/16 06:10 Plt Count 461 Th/cmm (150-400) H 04/04/16 06:10 MPV 8.1 fl 04/04/16 06:10 Neutrophils % 72.5 % (40.0-80.0) 04/04/16 06:10 Band Neutrophils % 3 % (0-10) 04/01/16 04:48 Lymphocytes % 13.5 % (20.0-50.0) L 04/04/16 06:10 Monocytes % 8.6 % (2.0-10.0) 04/04/16 06:10 Eosinophils % 5.2 % (0.0-5.0) H 04/04/16 06:10 Basophils % 0.2 % (0.0-2.0) 04/04/16 06:10 Neutrophils (Manual) 74 % (40-80) 04/03/16 06:20 Lymphocytes 13 % (20-50) L 04/03/16 06:20 Monocytes 6 % (2-10) 04/03/16 06:20 Eosinophils 7 % (0-5) H 04/03/16 06:20 Basophils 1 % (0-3) 03/12/16 08:00 Metamyelocytes 1 % (0-0) H 03/29/16 05:00 Platelet Estimate ADEQUATE (NORMAL) 04/03/16 06:20 Platelet Morphology NORMAL (NORMAL) 04/03/16 06:20 Polychromasia 1+ 03/24/16 06:45 Anisocytosis 1+ 04/01/16 04:48 Microcytosis 1+ 03/21/16 06:19 RBC Morph Micro Appear NORMAL (NORMAL) 04/03/16 06:20 PT 11.4 SECONDS (9.5-11.5) 03/24/16 20:04 INR 1.14 (0.5-1.4) 03/24/16 20:04 PTT (Actin FS) 30.2 SECONDS (26.0-38.0) 03/24/16 20:04 Specimen Source Arterial 03/21/16 16:45 Sample Site Right Radial 03/21/16 16:45 pH 7.37 (7.35-7.45) 03/21/16 16:45 pCO2 40.0 mmHg (35.0-45.0) 03/21/16 16:45 pO2 85.0 mmHg (80.0-100.0) 03/21/16 16:45 HCO3 23.1 mmol/L (20.0-26.0) 03/21/16 16:45 Base Excess -2.0 mmol/L (-3.0-3.0) 03/21/16 16:45 O2 Saturation 96.0 % (92.0-100.0) 03/21/16 16:45 Galo Test YES 03/21/16 16:45 Vent Rate NA 03/21/16 16:45 Inspired O2 40 03/21/16 16:45 Tidal Volume NA 03/21/16 16:45 PEEP NA 03/21/16 16:45 Pressure (ins/psv/peep) NA 03/21/16 16:45 Critical Value E.HERNANDEZ 03/21/16 16:45 Sodium 135 mEq/L (136-145) L 04/04/16 06:10 Potassium 4.5 mEq/L (3.5-5.1) 04/04/16 06:10 Chloride 103 mEq/L (98-107) 04/04/16 06:10 Carbon Dioxide 26.0 mEq/L (21.0-31.0) 04/04/16 06:10 Anion Gap 10.5 (7.0-16.0) 04/04/16 06:10 BUN 17 mg/dL (7-25) 04/04/16 06:10 Creatinine 0.9 mg/dL (0.7-1.3) 04/04/16 06:10 Est GFR ( Amer) > 60.0 ml/min (>90) 04/04/16 06:10 Est GFR (Non-Af Amer) > 60.0 ml/min 04/04/16 06:10 BUN/Creatinine Ratio 18.9 04/04/16 06:10 Glucose 122 mg/dL (70-105) H 04/04/16 06:10 POC Glucose 139 MG/DL (70 - 105) H 04/04/16 11:24 Hemoglobin A1c % 5.1 % (4.0-6.0) 03/26/16 06:10 Whole Bld Lactic Acid 1.80 mmol/L (0.60-2.00) 03/26/16 06:10 Calcium 8.8 mg/dL (8.6-10.3) 04/04/16 06:10 Phosphorus 3.3 mg/dL (2.5-5.0) 04/04/16 06:10 Magnesium 2.1 mg/dL (1.9-2.7) 04/04/16 06:10 Ferritin 136 ng/mL (30-400) 03/19/16 07:40 Total Bilirubin 0.4 mg/dL (0.3-1.0) 04/01/16 04:48 AST 10 U/L (13-39) L 04/01/16 04:48 ALT 6 U/L (7-52) L 04/01/16 04:48 Alkaline Phosphatase 56 U/L (34-104) 04/01/16 04:48 Ammonia 32 umol/L (16-53) 03/29/16 05:00 B-Natriuretic Peptide 13.3 pg/mL (5.0-100.0) 04/04/16 06:10 Total Protein 6.9 gm/dL (6.0-8.3) 04/01/16 04:48 Albumin 2.8 gm/dL (4.2-5.5) L 04/01/16 04:48 Globulin 4.1 gm/dL 04/01/16 04:48 Albumin/Globulin Ratio 0.7 (1.0-1.8) L 04/01/16 04:48 Prealbumin 15 mg/dL (10-36) 04/01/16 04:48 Triglycerides 78 mg/dL (<150) 04/01/16 04:48 Cholesterol 61 mg/dL (<200) 04/01/16 04:48 Carcinoembryonic Ag 2.7 ng/mL (0.0-4.7) 03/18/16 06:19 Vitamin B12 389 pg/mL (211-946) 03/10/16 04:30 Folic Acid 13.3 ng/mL (>3.0) 03/10/16 04:30 TSH 2.57 uIU/ml (0.34-5.60) 03/10/16 04:30 Urine Source CATH 03/13/16 16:00 Urine Color YELLOW 03/13/16 16:00 Urine Clarity CLEAR (CLEAR) 03/13/16 16:00 Urine pH 5.5 03/13/16 16:00 Ur Specific [place] 1.010 (1.005-1.030) 03/13/16 16:00 Urine Protein NEGATIVE mg/dL (NEGATIVE) 03/13/16 16:00 Urine Glucose (UA) NEGATIVE mg/dL (NEGATIVE) 03/13/16 16:00 Urine Ketones NEGATIVE mg/dL (NEGATIVE) 03/13/16 16:00 Urine Blood LARGE (NEGATIVE) H 03/13/16 16:00 Urine Nitrate NEGATIVE (NEGATIVE) 03/13/16 16:00 Urine Bilirubin NEGATIVE (NEGATIVE) 03/13/16 16:00 Urine Urobilinogen 1.0 E.U./dL (0.2 - 1.0) 03/13/16 16:00 Ur Leukocyte Esterase TRACE (NEGATIVE) H 03/13/16 16:00 Urine RBC 10-25 /hpf (0-5) H 03/13/16 16:00 Urine WBC 6-10 /hpf (0-5) H 03/13/16 16:00 Ur Epithelial Cells FEW /lpf (FEW) 03/13/16 16:00 Urine Bacteria OCCASIONAL /hpf (NONE SEEN) 03/13/16 16:00 Vancomycin Trough 12.5 ug/mL (10-20) 04/02/16 09:00 Blood Type B POSITIVE 03/29/16 09:15 Antibody Screen NEGATIVE 03/29/16 09:15 Crossmatch See Detail 03/29/16 09:15 - Physical Exam Vitals and I&O: Vital Signs Temp 99.2 F 04/04/16 08:00 Pulse 112 04/04/16 11:03 Resp 20 04/04/16 11:03 BP 98/62 04/04/16 08:00 Pulse Ox 96 04/04/16 11:03 Intake & Output 04/03/16 04/04/16 04/04/16 18:59 06:59 18:59 Intake Total 850 1540 Output Total 4500 Balance 850 -2960 Intake: Intake, IV Amount 850 350 Erythromycin Lact 500 mg 250 250 In Sodium Chloride 0.9% 250 ml @ 100 mls/hr IV Q12HR@1100,2300 [facility] Rx#: [id number] Meropenem 1 gm In Sodium 100 100 Chloride 0.9% 100 ml @ 100 mls/hr IV Q12HR@0200, 1400 [facility] Rx#:[id number] Vancomycin HCl 1.75 gm In 500 Sodium Chloride 0.9% 500 ml @ 250 mls/hr IV Q24H [facility] Rx#:[id number] Oral 350 TPN/PPN 840 Output: Urine 4500 Other: Stool Characteristics Liquid Liquid Liquid Brown Brown Brown Active Medications: Current Medications Acetaminophen (Tylenol) 650 mg PO Q6HR PRN PRN Reason: PAIN OR TEMP >100 Stop: 05/08/16 21:33 Last Admin: 03/26/16 11:31 Dose: 650 mg Acetaminophen (Tylenol 650mg Supp) 650 mg RC Q6H PRN PRN Reason: Fever > 101 Stop: 05/28/16 12:49 Last Admin: 03/29/16 16:42 Dose: 650 mg Acetaminophen (Tylenol 650mg Supp) 650 mg RC Q4H PRN PRN Reason: Fever > 101 Stop: 05/28/16 12:55 Acetaminophen/Codeine Phosphate (Tylenol W/Codeine #3) 1 tab PO Q4HR PRN PRN Reason: PAIN Stop: 05/08/16 21:33 Al Hydrox/Mg Hydrox/Simethicone (Maalox) 30 ml PO Q4HR PRN PRN Reason: Indigestion Stop: 05/08/16 21:33 Albuterol Sulfate (Albuterol 2.5mg/3ml Neb Ud) 2.5 mg IH Q2HR PRN PRN Reason: Shortness of Breath or Wheeze Stop: 05/08/16 21:37 Albuterol Sulfate (Albuterol 2.5mg/3ml Neb Ud) 2.5 mg HHN Q4HRT [facility] Stop: 05/20/16 18:59 Last Admin: 04/04/16 11:03 Dose: Not Given Donepezil HCl (Aricept) 10 mg PO HS [facility] Stop: 05/09/16 20:59 Last Admin: 04/03/16 20:56 Dose: 10 mg Enoxaparin Sodium (Lovenox) 30 mg SUBQ DAILY [facility] Stop: 05/28/16 14:59 Last Admin: 04/04/16 08:41 Dose: Not Given Dextrose/Sodium Chloride (D5-0.45ns) 1,000 mls @ 40 mls/hr IV .Q24H [facility] Stop: 05/18/16 12:59 Last Admin: 04/03/16 08:38 Dose: 40 mls/hr Norepinephrine Bitartrate 4 mg (/ Dextrose) 254 mls @ 15.24 mls/hr IV TITR PRN ; Protocol; 4 MCG/MIN PRN Reason: BP MAINTENANCE (PER PROTOCOL) Stop: 05/20/16 11:23 Last Titration: 03/21/16 14:45 Dose: 0 mcg/min, 0 mls/hr Erythromycin Lactobionate 500 (mg/ Sodium Chloride) 250 mls @ 100 mls/hr IV Q12HR@1100,2300 [facility] Stop: 05/29/16 10:59 Last Admin: 04/04/16 11:21 Dose: 100 mls/hr Meropenem 1 gm/ Sodium (Chloride) 100 mls @ 100 mls/hr IV Q12HR@0200,1400 [facility] Stop: 05/27/16 20:59 Last Infusion: 04/04/16 03:26 Dose: Infused Multivitamins/Minerals 10 ml/Amino Acids/ Fat Emulsion Intravenous/ Sterile Water 1,680 mls @ 70 mls/hr IV .Q24H [facility] Stop: 05/27/16 15:59 Last Admin: 04/01/16 17:02 Dose: 70 mls/hr Vancomycin HCl 1.75 gm/ Sodium (Chloride) 500 mls @ 250 mls/hr IV Q24H [facility] Stop: 06/02/16 08:59 Last Admin: 04/04/16 08:27 Dose: 250 mls/hr Insulin Aspart (Novolog Insulin Sliding Scale) 0 units SUBQ Q6HR [facility] PRN Reason: Protocol Stop: 05/25/16 17:59 Last Admin: 04/04/16 11:44 Dose: Not Given Lactobacillus Rhamnosus (Culturelle) 1 each PO DAILY [facility] Stop: 05/22/16 08:59 Last Admin: 04/04/16 08:28 Dose: 1 each Meclizine HCl (Antivert) 25 mg PO DAILY PRN PRN Reason: Nausea / Vomiting Stop: 05/08/16 21:37 Last Admin: 03/26/16 11:32 Dose: 25 mg Metoclopramide HCl (Reglan) 10 mg IVP Q8HR [facility] Stop: 05/23/16 12:59 Last Admin: 04/04/16 05:27 Dose: 10 mg Mirtazapine (Remeron) 7.5 mg PO HS [facility] PRN Reason: Protocol Stop: 05/09/16 20:59 Last Admin: 04/03/16 20:56 Dose: 7.5 mg Miscellaneous (Vte Chemical Prophylaxis Screen/ Admission) 1 ea MC PRN PRN PRN Reason: PROTOCOL Stop: 05/10/16 17:12 Miscellaneous (Tpn Per Pharmacy) 1 ea MC DAILY [facility] Stop: 05/20/16 14:39 Miscellaneous (Probiotic Screen) 1 ea PRN PRN PRN Reason: PROTOCOL Stop: 05/21/16 14:39 Ondansetron HCl (Zofran) 4 mg IV Q8H PRN PRN Reason: Nausea / Vomiting Stop: 05/08/16 21:37 Last Admin: 03/21/16 20:01 Dose: 4 mg Pantoprazole Sodium (Protonix) 40 mg IVP BID [facility] Stop: 05/31/16 16:59 Last Admin: 04/04/16 08:28 Dose: 40 mg Quetiapine Fumarate (Seroquel) 100 mg PO QPM [facility] PRN Reason: Protocol Stop: 05/09/16 16:59 Last Admin: 04/03/16 16:36 Dose: 100 mg Tamsulosin HCl (Flomax) 0.4 mg PO DAILY [facility] Stop: 05/09/16 08:59 Last Admin: 04/04/16 08:28 Dose: 0.4 mg General: no acute distress, well developed, well nourished, cachectic HEENT: atraumatic, normocephalic, PERRLA Neck: supple Cardiovascular: S1S2, regular Lungs: clear to auscultation bilaterally, clear to percussion Abdomen: soft, tender, distended, other (colostomy) Extremities: no cyanosis, no clubbing, no edema Neurological: awake, alert, oriented Skin: intact - Procedures Procedures: Procedures Procedure Code Date APPENDECTOMY ADD-ON 59867 03/10/16 BIOPSY OF BOWEL 57225 03/10/16 BYPASS DESCENDING COLON TO CUTANEOUS, OPEN APPROACH [id number] 03/10/16 COLOSTOMY 89268 03/10/16 EGD BIOPSY SINGLE/MULTIPLE 43676 03/10/16 EXCISION OF ILEUM, OPEN APPROACH [id number] 03/10/16 EXCISION OF LARGE INTESTINE, PERCUTANEOUS APPROACH, DIAGN [id number] 03/10/16 EXCISION OF STOMACH, ENDO, DIAGN [id number] 03/10/16 FREEING OF BOWEL ADHESION 41984 03/10/16 GROUP PSYCHOTHERAPY 69693 06/08/03 INDIVID PSYCHOTHERAP NEC 94.39 06/08/03 OTHER GROUP THERAPY 94.44 06/08/03 RELEASE ILEUM, OPEN APPROACH [id number] 03/10/16 REMOVAL OF SMALL INTESTINE 85312 03/10/16 RESECTION OF APPENDIX, OPEN APPROACH [id number] 03/10/16 Infectious Disease Assmt/Plan - Problem List Patient Problems: All Active Problems BLOOD CLOT IN STOOL (Acute) - Assessment Assessment: Impression: 1. Sepsis, fever and leukocytosis likley due to peritonitis. ?SBO. Improving. Leukocytosis has improved. There is no more fever. 2. Peritonitis. 3. GI Bleed resolved. 4. Dementia. 5. History of hypertension. 6. s/p colectomy and colostomy. 7. Intraabdominal mass? colon CA. associated colitis. 8. Suspect ileus versus SBO. RECOMMENDATIONS: Continue vanco IV and meropenem for few more days.
--- NOTE | 2016-04-04 12:14 | Internal Medicine Prog Note ---
Internal Medicine Subjective - Subjective Patient seen and examined:: with staff, chart reviewed Patient is:: awake, interactive Patient Complaints of:: congestion Per staff patient is:: no adverse event, confused Internal Medicine Objective - Results Result Diagrams: 04/04/16 06:10 04/04/16 06:10 Recent Labs: Laboratory Last Values WBC 10.9 Th/cmm (4.8-10.8) H D 04/04/16 06:10 RBC 3.36 Mil/cmm (3.80-5.80) L 04/04/16 06:10 Hgb 9.4 gm/dL (12.6-17.4) L 04/04/16 06:10 Hct 26.8 % (39.0-49.0) L D 04/04/16 06:10 MCV 79.9 fl (80-99) L 04/04/16 06:10 MCH 27.9 pg (27.0-31.0) 04/04/16 06:10 MCHC Differential 34.8 pg (28.0-36.0) 04/04/16 06:10 RDW 18.0 % (11.5-20.0) 04/04/16 06:10 Plt Count 461 Th/cmm (150-400) H 04/04/16 06:10 MPV 8.1 fl 04/04/16 06:10 Neutrophils % 72.5 % (40.0-80.0) 04/04/16 06:10 Band Neutrophils % 3 % (0-10) 04/01/16 04:48 Lymphocytes % 13.5 % (20.0-50.0) L 04/04/16 06:10 Monocytes % 8.6 % (2.0-10.0) 04/04/16 06:10 Eosinophils % 5.2 % (0.0-5.0) H 04/04/16 06:10 Basophils % 0.2 % (0.0-2.0) 04/04/16 06:10 Neutrophils (Manual) 74 % (40-80) 04/03/16 06:20 Lymphocytes 13 % (20-50) L 04/03/16 06:20 Monocytes 6 % (2-10) 04/03/16 06:20 Eosinophils 7 % (0-5) H 04/03/16 06:20 Basophils 1 % (0-3) 01/17/17 08:00 Metamyelocytes 1 % (0-0) H 03/29/16 05:00 Platelet Estimate ADEQUATE (NORMAL) 04/03/16 06:20 Platelet Morphology NORMAL (NORMAL) 04/03/16 06:20 Polychromasia 1+ 03/24/16 06:45 Anisocytosis 1+ 04/01/16 04:48 Microcytosis 1+ 03/21/16 06:19 RBC Morph Micro Appear NORMAL (NORMAL) 04/03/16 06:20 PT 11.4 SECONDS (9.5-11.5) 03/24/16 20:04 INR 1.14 (0.5-1.4) 03/24/16 20:04 PTT (Actin FS) 30.2 SECONDS (26.0-38.0) 03/24/16 20:04 Specimen Source Arterial 03/21/16 16:45 Sample Site Right Radial 03/21/16 16:45 pH 7.37 (7.35-7.45) 03/21/16 16:45 pCO2 40.0 mmHg (35.0-45.0) 03/21/16 16:45 pO2 85.0 mmHg (80.0-100.0) 03/21/16 16:45 HCO3 23.1 mmol/L (20.0-26.0) 03/21/16 16:45 Base Excess -2.0 mmol/L (-3.0-3.0) 03/21/16 16:45 O2 Saturation 96.0 % (92.0-100.0) 03/21/16 16:45 Galo Test YES 03/21/16 16:45 Vent Rate NA 03/21/16 16:45 Inspired O2 40 03/21/16 16:45 Tidal Volume NA 03/21/16 16:45 PEEP NA 03/21/16 16:45 Pressure (ins/psv/peep) NA 03/21/16 16:45 Critical Value E.HERNANDEZ 03/21/16 16:45 Sodium 135 mEq/L (136-145) L 04/04/16 06:10 Potassium 4.5 mEq/L (3.5-5.1) 04/04/16 06:10 Chloride 103 mEq/L (98-107) 04/04/16 06:10 Carbon Dioxide 26.0 mEq/L (21.0-31.0) 04/04/16 06:10 Anion Gap 10.5 (7.0-16.0) 04/04/16 06:10 BUN 17 mg/dL (7-25) 04/04/16 06:10 Creatinine 0.9 mg/dL (0.7-1.3) 04/04/16 06:10 Est GFR ( Amer) > 60.0 ml/min (>90) 04/04/16 06:10 Est GFR (Non-Af Amer) > 60.0 ml/min 04/04/16 06:10 BUN/Creatinine Ratio 18.9 04/04/16 06:10 Glucose 122 mg/dL (70-105) H 04/04/16 06:10 POC Glucose 139 MG/DL (70 - 105) H 04/04/16 11:24 Hemoglobin A1c % 5.1 % (4.0-6.0) 03/26/16 06:10 Whole Bld Lactic Acid 1.80 mmol/L (0.60-2.00) 03/26/16 06:10 Calcium 8.8 mg/dL (8.6-10.3) 04/04/16 06:10 Phosphorus 3.3 mg/dL (2.5-5.0) 04/04/16 06:10 Magnesium 2.1 mg/dL (1.9-2.7) 04/04/16 06:10 Ferritin 136 ng/mL (30-400) 03/19/16 07:40 Total Bilirubin 0.4 mg/dL (0.3-1.0) 04/01/16 04:48 AST 10 U/L (13-39) L 04/01/16 04:48 ALT 6 U/L (7-52) L 04/01/16 04:48 Alkaline Phosphatase 56 U/L (34-104) 04/01/16 04:48 Ammonia 32 umol/L (16-53) 03/29/16 05:00 B-Natriuretic Peptide 13.3 pg/mL (5.0-100.0) 04/04/16 06:10 Total Protein 6.9 gm/dL (6.0-8.3) 04/01/16 04:48 Albumin 2.8 gm/dL (4.2-5.5) L 04/01/16 04:48 Globulin 4.1 gm/dL 04/01/16 04:48 Albumin/Globulin Ratio 0.7 (1.0-1.8) L 04/01/16 04:48 Prealbumin 15 mg/dL (10-36) 04/01/16 04:48 Triglycerides 78 mg/dL (<150) 04/01/16 04:48 Cholesterol 61 mg/dL (<200) 04/01/16 04:48 Carcinoembryonic Ag 2.7 ng/mL (0.0-4.7) 03/18/16 06:19 Vitamin B12 389 pg/mL (211-946) 03/10/16 04:30 Folic Acid 13.3 ng/mL (>3.0) 03/10/16 04:30 TSH 2.57 uIU/ml (0.34-5.60) 03/10/16 04:30 Urine Source CATH 03/13/16 16:00 Urine Color YELLOW 03/13/16 16:00 Urine Clarity CLEAR (CLEAR) 03/13/16 16:00 Urine pH 5.5 03/13/16 16:00 Ur Specific [place] 1.010 (1.005-1.030) 03/13/16 16:00 Urine Protein NEGATIVE mg/dL (NEGATIVE) 03/13/16 16:00 Urine Glucose (UA) NEGATIVE mg/dL (NEGATIVE) 03/13/16 16:00 Urine Ketones NEGATIVE mg/dL (NEGATIVE) 03/13/16 16:00 Urine Blood LARGE (NEGATIVE) H 03/13/16 16:00 Urine Nitrate NEGATIVE (NEGATIVE) 03/13/16 16:00 Urine Bilirubin NEGATIVE (NEGATIVE) 03/13/16 16:00 Urine Urobilinogen 1.0 E.U./dL (0.2 - 1.0) 03/13/16 16:00 Ur Leukocyte Esterase TRACE (NEGATIVE) H 03/13/16 16:00 Urine RBC 10-25 /hpf (0-5) H 03/13/16 16:00 Urine WBC 6-10 /hpf (0-5) H 03/13/16 16:00 Ur Epithelial Cells FEW /lpf (FEW) 03/13/16 16:00 Urine Bacteria OCCASIONAL /hpf (NONE SEEN) 03/13/16 16:00 Vancomycin Trough 12.5 ug/mL (10-20) 04/02/16 09:00 Blood Type B POSITIVE 03/29/16 09:15 Antibody Screen NEGATIVE 03/29/16 09:15 Crossmatch See Detail 03/29/16 09:15 - Physical Exam Vitals and I&O: Vital Signs Temp 99.2 F 04/04/16 08:00 Pulse 112 04/04/16 11:03 Resp 20 04/04/16 11:03 BP 98/62 04/04/16 08:00 Pulse Ox 96 04/04/16 11:03 Intake & Output 04/03/16 04/04/16 04/04/16 18:59 06:59 18:59 Intake Total 850 1540 Output Total 4500 Balance 850 -2960 Intake: Intake, IV Amount 850 350 Erythromycin Lact 500 mg 250 250 In Sodium Chloride 0.9% 250 ml @ 100 mls/hr IV Q12HR@1100,2300 [facility] Rx#: [id number] Meropenem 1 gm In Sodium 100 100 Chloride 0.9% 100 ml @ 100 mls/hr IV Q12HR@0200, 1400 [facility] Rx#:[id number] Vancomycin HCl 1.75 gm In 500 Sodium Chloride 0.9% 500 ml @ 250 mls/hr IV Q24H [facility] Rx#:[id number] Oral 350 TPN/PPN 840 Output: Urine 4500 Other: Stool Characteristics Liquid Liquid Liquid Brown Brown Brown Active Medications: Current Medications Acetaminophen (Tylenol) 650 mg PO Q6HR PRN PRN Reason: PAIN OR TEMP >100 Stop: 05/08/16 21:33 Last Admin: 03/26/16 11:31 Dose: 650 mg Acetaminophen (Tylenol 650mg Supp) 650 mg RC Q6H PRN PRN Reason: Fever > 101 Stop: 05/28/16 12:49 Last Admin: 03/29/16 16:42 Dose: 650 mg Acetaminophen (Tylenol 650mg Supp) 650 mg RC Q4H PRN PRN Reason: Fever > 101 Stop: 05/28/16 12:55 Acetaminophen/Codeine Phosphate (Tylenol W/Codeine #3) 1 tab PO Q4HR PRN PRN Reason: PAIN Stop: 05/08/16 21:33 Al Hydrox/Mg Hydrox/Simethicone (Maalox) 30 ml PO Q4HR PRN PRN Reason: Indigestion Stop: 05/08/16 21:33 Albuterol Sulfate (Albuterol 2.5mg/3ml Neb Ud) 2.5 mg IH Q2HR PRN PRN Reason: Shortness of Breath or Wheeze Stop: 05/08/16 21:37 Albuterol Sulfate (Albuterol 2.5mg/3ml Neb Ud) 2.5 mg HHN Q4HRT [facility] Stop: 05/20/16 18:59 Last Admin: 04/04/16 11:03 Dose: Not Given Donepezil HCl (Aricept) 10 mg PO HS [facility] Stop: 05/09/16 20:59 Last Admin: 04/03/16 20:56 Dose: 10 mg Enoxaparin Sodium (Lovenox) 30 mg SUBQ DAILY [facility] Stop: 05/28/16 14:59 Last Admin: 04/04/16 08:41 Dose: Not Given Dextrose/Sodium Chloride (D5-0.45ns) 1,000 mls @ 40 mls/hr IV .Q24H [facility] Stop: 05/18/16 12:59 Last Admin: 04/03/16 08:38 Dose: 40 mls/hr Norepinephrine Bitartrate 4 mg (/ Dextrose) 254 mls @ 15.24 mls/hr IV TITR PRN ; Protocol; 4 MCG/MIN PRN Reason: BP MAINTENANCE (PER PROTOCOL) Stop: 05/20/16 11:23 Last Titration: 03/21/16 14:45 Dose: 0 mcg/min, 0 mls/hr Erythromycin Lactobionate 500 (mg/ Sodium Chloride) 250 mls @ 100 mls/hr IV Q12HR@1100,2300 [facility] Stop: 05/29/16 10:59 Last Admin: 04/04/16 11:21 Dose: 100 mls/hr Meropenem 1 gm/ Sodium (Chloride) 100 mls @ 100 mls/hr IV Q12HR@0200,1400 [facility] Stop: 05/27/16 20:59 Last Infusion: 04/04/16 03:26 Dose: Infused Multivitamins/Minerals 10 ml/Amino Acids/ Fat Emulsion Intravenous/ Sterile Water 1,680 mls @ 70 mls/hr IV .Q24H [facility] Stop: 05/27/16 15:59 Last Admin: 04/01/16 17:02 Dose: 70 mls/hr Vancomycin HCl 1.75 gm/ Sodium (Chloride) 500 mls @ 250 mls/hr IV Q24H [facility] Stop: 06/02/16 08:59 Last Admin: 04/04/16 08:27 Dose: 250 mls/hr Insulin Aspart (Novolog Insulin Sliding Scale) 0 units SUBQ Q6HR [facility] PRN Reason: Protocol Stop: 05/25/16 17:59 Last Admin: 04/04/16 11:44 Dose: Not Given Lactobacillus Rhamnosus (Culturelle) 1 each PO DAILY [facility] Stop: 05/22/16 08:59 Last Admin: 04/04/16 08:28 Dose: 1 each Meclizine HCl (Antivert) 25 mg PO DAILY PRN PRN Reason: Nausea / Vomiting Stop: 05/08/16 21:37 Last Admin: 03/26/16 11:32 Dose: 25 mg Metoclopramide HCl (Reglan) 10 mg IVP Q8HR [facility] Stop: 05/23/16 12:59 Last Admin: 04/04/16 05:27 Dose: 10 mg Mirtazapine (Remeron) 7.5 mg PO HS [facility] PRN Reason: Protocol Stop: 05/09/16 20:59 Last Admin: 04/03/16 20:56 Dose: 7.5 mg Miscellaneous (Vte Chemical Prophylaxis Screen/ Admission) 1 ea PRN PRN PRN Reason: PROTOCOL Stop: 05/10/16 17:12 Miscellaneous (Tpn Per Pharmacy) 1 ea MC DAILY [facility] Stop: 05/20/16 14:39 Miscellaneous (Probiotic Screen) 1 ea PRN PRN PRN Reason: PROTOCOL Stop: 05/21/16 14:39 Ondansetron HCl (Zofran) 4 mg IV Q8H PRN PRN Reason: Nausea / Vomiting Stop: 05/08/16 21:37 Last Admin: 03/21/16 20:01 Dose: 4 mg Pantoprazole Sodium (Protonix) 40 mg IVP BID [facility] Stop: 05/31/16 16:59 Last Admin: 04/04/16 08:28 Dose: 40 mg Quetiapine Fumarate (Seroquel) 100 mg PO QPM [facility] PRN Reason: Protocol Stop: 05/09/16 16:59 Last Admin: 04/03/16 16:36 Dose: 100 mg Tamsulosin HCl (Flomax) 0.4 mg PO DAILY [facility] Stop: 05/09/16 08:59 Last Admin: 04/04/16 08:28 Dose: 0.4 mg General: demented HEENT: NC/AT, PERRLA Neck: Supple, No JVD Lungs: congested, rales Cardiovascular: RRR, Normal S1, Normal S2 Abdomen: soft non-tender, globular, other (colostomy) Extremities: excoriation, contracture Neurological: lethargic, disorganized, unsteady - Procedures Procedures: Procedures Procedure Code Date APPENDECTOMY ADD-ON 21424 03/10/16 BIOPSY OF BOWEL 04426 03/10/16 BYPASS DESCENDING COLON TO CUTANEOUS, OPEN APPROACH [id number] 03/10/16 COLOSTOMY 79837 03/10/16 EGD BIOPSY SINGLE/MULTIPLE 28328 03/10/16 EXCISION OF ILEUM, OPEN APPROACH [id number] 03/10/16 EXCISION OF LARGE INTESTINE, PERCUTANEOUS APPROACH, DIAGN [id number] 03/10/16 EXCISION OF STOMACH, ENDO, DIAGN [id number] 03/10/16 FREEING OF BOWEL ADHESION 72032 03/10/16 GROUP PSYCHOTHERAPY 10992 06/08/03 INDIVID PSYCHOTHERAP NEC 94.39 06/08/03 OTHER GROUP THERAPY 94.44 06/08/03 RELEASE ILEUM, OPEN APPROACH [id number] 03/10/16 REMOVAL OF SMALL INTESTINE 21877 03/10/16 RESECTION OF APPENDIX, OPEN APPROACH [id number] 03/10/16 Internal Medicine Assmt/Plan - Assessment Assessment: colon mass- adenoca s\p recection ileus colostomy jonathan drain GI BLEED ANEMIA HYPOTENSION leukocytosis malnutrition afib-paroxysmal - Plan Plan: colostomy care picc line tpn cont on iv fluid abx check culture id and gi follow up dw rn check labs s\p sugical resection will place on therapeutic dose of lovenox rehab
--- NOTE | 2016-04-04 12:42 | General Progress Note ---
Subjective - Review of Systems Service Date: 04/04/16 Subjective: EVENTS NOTED. JOSEPH ORAL DIET. COLOSTOMY FUNCTIONAL. Objective - Results Result Diagrams: 04/04/16 06:10 04/04/16 06:10 Recent Labs: Laboratory Last Values WBC 10.9 Th/cmm (4.8-10.8) H D 04/04/16 06:10 RBC 3.36 Mil/cmm (3.80-5.80) L 04/04/16 06:10 Hgb 9.4 gm/dL (12.6-17.4) L 04/04/16 06:10 Hct 26.8 % (39.0-49.0) L D 04/04/16 06:10 MCV 79.9 fl (80-99) L 04/04/16 06:10 MCH 27.9 pg (27.0-31.0) 04/04/16 06:10 MCHC Differential 34.8 pg (28.0-36.0) 04/04/16 06:10 RDW 18.0 % (11.5-20.0) 04/04/16 06:10 Plt Count 461 Th/cmm (150-400) H 04/04/16 06:10 MPV 8.1 fl 04/04/16 06:10 Neutrophils % 72.5 % (40.0-80.0) 04/04/16 06:10 Band Neutrophils % 3 % (0-10) 04/01/16 04:48 Lymphocytes % 13.5 % (20.0-50.0) L 04/04/16 06:10 Monocytes % 8.6 % (2.0-10.0) 04/04/16 06:10 Eosinophils % 5.2 % (0.0-5.0) H 04/04/16 06:10 Basophils % 0.2 % (0.0-2.0) 04/04/16 06:10 Neutrophils (Manual) 74 % (40-80) 04/03/16 06:20 Lymphocytes 13 % (20-50) L 04/03/16 06:20 Monocytes 6 % (2-10) 04/03/16 06:20 Eosinophils 7 % (0-5) H 04/03/16 06:20 Basophils 1 % (0-3) 03/12/16 08:00 Metamyelocytes 1 % (0-0) H 03/29/16 05:00 Platelet Estimate ADEQUATE (NORMAL) 04/03/16 06:20 Platelet Morphology NORMAL (NORMAL) 04/03/16 06:20 Polychromasia 1+ 03/24/16 06:45 Anisocytosis 1+ 04/01/16 04:48 Microcytosis 1+ 03/21/16 06:19 RBC Morph Micro Appear NORMAL (NORMAL) 04/03/16 06:20 PT 11.4 SECONDS (9.5-11.5) 03/24/16 20:04 INR 1.14 (0.5-1.4) 03/24/16 20:04 PTT (Actin FS) 30.2 SECONDS (26.0-38.0) 03/24/16 20:04 Specimen Source Arterial 03/21/16 16:45 Sample Site Right Radial 03/21/16 16:45 pH 7.37 (7.35-7.45) 03/21/16 16:45 pCO2 40.0 mmHg (35.0-45.0) 03/21/16 16:45 pO2 85.0 mmHg (80.0-100.0) 03/21/16 16:45 HCO3 23.1 mmol/L (20.0-26.0) 03/21/16 16:45 Base Excess -2.0 mmol/L (-3.0-3.0) 03/21/16 16:45 O2 Saturation 96.0 % (92.0-100.0) 03/21/16 16:45 Galo Test YES 03/21/16 16:45 Vent Rate NA 03/21/16 16:45 Inspired O2 40 03/21/16 16:45 Tidal Volume NA 03/21/16 16:45 PEEP NA 03/21/16 16:45 Pressure (ins/psv/peep) NA 03/21/16 16:45 Critical Value E.HERNANDEZ 03/21/16 16:45 Sodium 135 mEq/L (136-145) L 04/04/16 06:10 Potassium 4.5 mEq/L (3.5-5.1) 04/04/16 06:10 Chloride 103 mEq/L (98-107) 04/04/16 06:10 Carbon Dioxide 26.0 mEq/L (21.0-31.0) 04/04/16 06:10 Anion Gap 10.5 (7.0-16.0) 04/04/16 06:10 BUN 17 mg/dL (7-25) 04/04/16 06:10 Creatinine 0.9 mg/dL (0.7-1.3) 04/04/16 06:10 Est GFR ( Amer) > 60.0 ml/min (>90) 04/04/16 06:10 Est GFR (Non-Af Amer) > 60.0 ml/min 04/04/16 06:10 BUN/Creatinine Ratio 18.9 04/04/16 06:10 Glucose 122 mg/dL (70-105) H 04/04/16 06:10 POC Glucose 139 MG/DL (70 - 105) H 04/04/16 11:24 Hemoglobin A1c % 5.1 % (4.0-6.0) 03/26/16 06:10 Whole Bld Lactic Acid 1.80 mmol/L (0.60-2.00) 03/26/16 06:10 Calcium 8.8 mg/dL (8.6-10.3) 04/04/16 06:10 Phosphorus 3.3 mg/dL (2.5-5.0) 04/04/16 06:10 Magnesium 2.1 mg/dL (1.9-2.7) 04/04/16 06:10 Ferritin 136 ng/mL (30-400) 03/19/16 07:40 Total Bilirubin 0.4 mg/dL (0.3-1.0) 04/01/16 04:48 AST 10 U/L (13-39) L 04/01/16 04:48 ALT 6 U/L (7-52) L 04/01/16 04:48 Alkaline Phosphatase 56 U/L (34-104) 04/01/16 04:48 Ammonia 32 umol/L (16-53) 03/29/16 05:00 B-Natriuretic Peptide 13.3 pg/mL (5.0-100.0) 04/04/16 06:10 Total Protein 6.9 gm/dL (6.0-8.3) 04/01/16 04:48 Albumin 2.8 gm/dL (4.2-5.5) L 04/01/16 04:48 Globulin 4.1 gm/dL 04/01/16 04:48 Albumin/Globulin Ratio 0.7 (1.0-1.8) L 04/01/16 04:48 Prealbumin 15 mg/dL (10-36) 04/01/16 04:48 Triglycerides 78 mg/dL (<150) 04/01/16 04:48 Cholesterol 61 mg/dL (<200) 04/01/16 04:48 Carcinoembryonic Ag 2.7 ng/mL (0.0-4.7) 03/18/16 06:19 Vitamin B12 389 pg/mL (211-946) 03/10/16 04:30 Folic Acid 13.3 ng/mL (>3.0) 03/10/16 04:30 TSH 2.57 uIU/ml (0.34-5.60) 03/10/16 04:30 Urine Source CATH 03/13/16 16:00 Urine Color YELLOW 03/13/16 16:00 Urine Clarity CLEAR (CLEAR) 03/13/16 16:00 Urine pH 5.5 03/13/16 16:00 Ur Specific [place] 1.010 (1.005-1.030) 03/13/16 16:00 Urine Protein NEGATIVE mg/dL (NEGATIVE) 03/13/16 16:00 Urine Glucose (UA) NEGATIVE mg/dL (NEGATIVE) 03/13/16 16:00 Urine Ketones NEGATIVE mg/dL (NEGATIVE) 03/13/16 16:00 Urine Blood LARGE (NEGATIVE) H 03/13/16 16:00 Urine Nitrate NEGATIVE (NEGATIVE) 03/13/16 16:00 Urine Bilirubin NEGATIVE (NEGATIVE) 03/13/16 16:00 Urine Urobilinogen 1.0 E.U./dL (0.2 - 1.0) 03/13/16 16:00 Ur Leukocyte Esterase TRACE (NEGATIVE) H 03/13/16 16:00 Urine RBC 10-25 /hpf (0-5) H 03/13/16 16:00 Urine WBC 6-10 /hpf (0-5) H 03/13/16 16:00 Ur Epithelial Cells FEW /lpf (FEW) 03/13/16 16:00 Urine Bacteria OCCASIONAL /hpf (NONE SEEN) 03/13/16 16:00 Vancomycin Trough 12.5 ug/mL (10-20) 04/02/16 09:00 Blood Type B POSITIVE 03/29/16 09:15 Antibody Screen NEGATIVE 03/29/16 09:15 Crossmatch See Detail 03/29/16 09:15 - Physical Exam Vitals and I&O: Vital Signs Temp 98.5 F 04/04/16 12:17 Pulse 102 04/04/16 12:17 Resp 18 04/04/16 12:17 BP 113/65 04/04/16 12:17 Pulse Ox 98 04/04/16 12:17 Intake & Output 04/03/16 04/04/16 04/04/16 18:59 06:59 18:59 Intake Total 850 1540 Output Total 4500 Balance 850 -2960 Intake: Intake, IV Amount 850 350 Erythromycin Lact 500 mg 250 250 In Sodium Chloride 0.9% 250 ml @ 100 mls/hr IV Q12HR@1100,2300 [facility] Rx#: [id number] Meropenem 1 gm In Sodium 100 100 Chloride 0.9% 100 ml @ 100 mls/hr IV Q12HR@0200, 1400 [facility] Rx#:[id number] Vancomycin HCl 1.75 gm In 500 Sodium Chloride 0.9% 500 ml @ 250 mls/hr IV Q24H [facility] Rx#:[id number] Oral 350 TPN/PPN 840 Output: Urine 4500 Other: Stool Characteristics Liquid Liquid Liquid Brown Brown Brown Active Medications: Current Medications Acetaminophen (Tylenol) 650 mg PO Q6HR PRN PRN Reason: PAIN OR TEMP >100 Stop: 05/08/16 21:33 Last Admin: 03/26/16 11:31 Dose: 650 mg Acetaminophen (Tylenol 650mg Supp) 650 mg RC Q6H PRN PRN Reason: Fever > 101 Stop: 05/28/16 12:49 Last Admin: 03/29/16 16:42 Dose: 650 mg Acetaminophen (Tylenol 650mg Supp) 650 mg RC Q4H PRN PRN Reason: Fever > 101 Stop: 05/28/16 12:55 Acetaminophen/Codeine Phosphate (Tylenol W/Codeine #3) 1 tab PO Q4HR PRN PRN Reason: PAIN Stop: 05/08/16 21:33 Al Hydrox/Mg Hydrox/Simethicone (Maalox) 30 ml PO Q4HR PRN PRN Reason: Indigestion Stop: 05/08/16 21:33 Albuterol Sulfate (Albuterol 2.5mg/3ml Neb Ud) 2.5 mg IH Q2HR PRN PRN Reason: Shortness of Breath or Wheeze Stop: 05/08/16 21:37 Albuterol Sulfate (Albuterol 2.5mg/3ml Neb Ud) 2.5 mg HHN Q4HRT [facility] Stop: 05/20/16 18:59 Last Admin: 04/04/16 11:03 Dose: Not Given Donepezil HCl (Aricept) 10 mg PO HS [facility] Stop: 05/09/16 20:59 Last Admin: 04/03/16 20:56 Dose: 10 mg Enoxaparin Sodium (Lovenox) 30 mg SUBQ DAILY [facility] Stop: 05/28/16 14:59 Last Admin: 04/04/16 08:41 Dose: Not Given Dextrose/Sodium Chloride (D5-0.45ns) 1,000 mls @ 40 mls/hr IV .Q24H [facility] Stop: 05/18/16 12:59 Last Admin: 04/03/16 08:38 Dose: 40 mls/hr Norepinephrine Bitartrate 4 mg (/ Dextrose) 254 mls @ 15.24 mls/hr IV TITR PRN ; Protocol; 4 MCG/MIN PRN Reason: BP MAINTENANCE (PER PROTOCOL) Stop: 05/20/16 11:23 Last Titration: 03/21/16 14:45 Dose: 0 mcg/min, 0 mls/hr Erythromycin Lactobionate 500 (mg/ Sodium Chloride) 250 mls @ 100 mls/hr IV Q12HR@1100,2300 [facility] Stop: 05/29/16 10:59 Last Admin: 04/04/16 11:21 Dose: 100 mls/hr Meropenem 1 gm/ Sodium (Chloride) 100 mls @ 100 mls/hr IV Q12HR@0200,1400 [facility] Stop: 05/27/16 20:59 Last Infusion: 04/04/16 03:26 Dose: Infused Multivitamins/Minerals 10 ml/Amino Acids/ Fat Emulsion Intravenous/ Sterile Water 1,680 mls @ 70 mls/hr IV .Q24H [facility] Stop: 05/27/16 15:59 Last Admin: 04/01/16 17:02 Dose: 70 mls/hr Vancomycin HCl 1.75 gm/ Sodium (Chloride) 500 mls @ 250 mls/hr IV Q24H [facility] Stop: 06/02/16 08:59 Last Admin: 04/04/16 08:27 Dose: 250 mls/hr Insulin Aspart (Novolog Insulin Sliding Scale) 0 units SUBQ Q6HR AMAURI PRN Reason: Protocol Stop: 05/25/16 17:59 Last Admin: 04/04/16 11:44 Dose: Not Given Lactobacillus Rhamnosus (Culturelle) 1 each PO DAILY [facility] Stop: 05/22/16 08:59 Last Admin: 04/04/16 08:28 Dose: 1 each Meclizine HCl (Antivert) 25 mg PO DAILY PRN PRN Reason: Nausea / Vomiting Stop: 05/08/16 21:37 Last Admin: 03/26/16 11:32 Dose: 25 mg Metoclopramide HCl (Reglan) 10 mg IVP Q8HR [facility] Stop: 05/23/16 12:59 Last Admin: 04/04/16 05:27 Dose: 10 mg Mirtazapine (Remeron) 7.5 mg PO HS AMAURI PRN Reason: Protocol Stop: 05/09/16 20:59 Last Admin: 04/03/16 20:56 Dose: 7.5 mg Miscellaneous (Vte Chemical Prophylaxis Screen/ Admission) 1 ea PRN PRN PRN Reason: PROTOCOL Stop: 05/10/16 17:12 Miscellaneous (Tpn Per Pharmacy) 1 ea MC DAILY [facility] Stop: 05/20/16 14:39 Miscellaneous (Probiotic Screen) 1 ea PRN PRN PRN Reason: PROTOCOL Stop: 05/21/16 14:39 Ondansetron HCl (Zofran) 4 mg IV Q8H PRN PRN Reason: Nausea / Vomiting Stop: 05/08/16 21:37 Last Admin: 03/21/16 20:01 Dose: 4 mg Pantoprazole Sodium (Protonix) 40 mg IVP BID [facility] Stop: 05/31/16 16:59 Last Admin: 04/04/16 08:28 Dose: 40 mg Quetiapine Fumarate (Seroquel) 100 mg PO QPM AMAURI PRN Reason: Protocol Stop: 05/09/16 16:59 Last Admin: 04/03/16 16:36 Dose: 100 mg Tamsulosin HCl (Flomax) 0.4 mg PO DAILY [facility] Stop: 05/09/16 08:59 Last Admin: 04/04/16 08:28 Dose: 0.4 mg General: Alert HEENT: Atraumatic Neck: Supple Cardiovascular: Regular rate Lungs: Clear to auscultation Abdomen: Bowel sounds, Other (INTACT COLOSTOMY LLQ) - Procedures Procedures: Procedures Procedure Code Date APPENDECTOMY ADD-ON 03972 03/10/16 BIOPSY OF BOWEL 18076 03/10/16 BYPASS DESCENDING COLON TO CUTANEOUS, OPEN APPROACH [id number] 03/10/16 COLOSTOMY 02939 03/10/16 EGD BIOPSY SINGLE/MULTIPLE 85144 03/10/16 EXCISION OF ILEUM, OPEN APPROACH [id number] 03/10/16 EXCISION OF LARGE INTESTINE, PERCUTANEOUS APPROACH, DIAGN [id number] 03/10/16 EXCISION OF STOMACH, ENDO, DIAGN [id number] 03/10/16 FREEING OF BOWEL ADHESION 94095 03/10/16 GROUP PSYCHOTHERAPY 49758 06/08/03 INDIVID PSYCHOTHERAP NEC 94.39 06/08/03 OTHER GROUP THERAPY 94.44 06/08/03 RELEASE ILEUM, OPEN APPROACH [id number] 03/10/16 REMOVAL OF SMALL INTESTINE 64583 03/10/16 RESECTION OF APPENDIX, OPEN APPROACH [id number] 03/10/16 Assessment/Plan - Problem List Patient Problems: All Active Problems BLOOD CLOT IN STOOL (Acute) - Assessment Assessment: 1. 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 2. POST OP ILEUS, IMPROVED. 3. ANEMIA. 4. GASTRITIS PER EGD. - Plan Plan: 1. POST OP CARE. 2. REGLAN AND ERYTHROMYCIN. 3. COLOSTOMY CARE. 4. ORAL DIET TOLERATED. 5. TPN TILL ORAL INTAKE NORMALIZES. 6. MONITOR LABS. 7. PT/REHAB IF AVAILABLE.
--- NOTE | 2016-04-04 12:57 | Diagnostic Imaging Report ---
KUB History: Follow-up Comparison: KUB on 04/03/2016 Findings: Postsurgical changes are again noted. Persistent diffuse gaseous filled loops of bowel are noted. Calcification of the left upper quadrant may represent pancreatic calcifications and due to chronic pancreatitis. IMPRESSION: Persistent diffuse gaseous distended loops of bowel which may represent a postoperative ileus or less likely due to distal obstructive process.
[2016-04-04] MEDS: [UNRECOGNIZED DRUG - OTHER] IV SCH (19:16)
[2016-04-04] MEDS: MULTIVITAMIN IV SCH (19:16)
[2016-04-04] MEDS: DEXT IV SCH (19:16)
[2016-04-04] MEDS: AMINO ACIDS IV SCH (19:16)
[2016-04-04] MEDS: INTRALIPIDS IV SCH (19:16)
[2016-04-05] MEDS: Meropenem 1 GM in Sodium Chloride 0.9% 100 ML IV SCH ×2 (02:04→14:40)
[2016-04-05] MEDS: D5-0.45NS 1,000 ML IV SCH (02:05)
[2016-04-05] MEDS: Albuterol Nebulizer 2.5mg/3mL HHN SCH ×3 (02:33→17:18)
[2016-04-05] MEDS: Metoclopramide 5 mg/mL 2mL Vial IVP SCH ×2 (04:39→13:35)
[2016-04-05] MEDS: INSULIN ASPART SLIDING SCALE 100 UNITS/ML UNIT SUBQ SCH ×4 (06:14→18:25)
--- NOTE | 2016-04-05 08:06 | General Progress Note ---
Subjective - Review of Systems Service Date: 04/05/16 Events since last encounter: POD #15; incision healing well, remove xu colostomy working well eating ok labs noted Objective - Results Result Diagrams: 04/04/16 06:10 04/04/16 06:10 Recent Labs: Laboratory Last Values WBC 10.9 Th/cmm (4.8-10.8) H D 04/04/16 06:10 RBC 3.36 Mil/cmm (3.80-5.80) L 04/04/16 06:10 Hgb 9.4 gm/dL (12.6-17.4) L 04/04/16 06:10 Hct 26.8 % (39.0-49.0) L D 04/04/16 06:10 MCV 79.9 fl (80-99) L 04/04/16 06:10 MCH 27.9 pg (27.0-31.0) 04/04/16 06:10 MCHC Differential 34.8 pg (28.0-36.0) 04/04/16 06:10 RDW 18.0 % (11.5-20.0) 04/04/16 06:10 Plt Count 461 Th/cmm (150-400) H 04/04/16 06:10 MPV 8.1 fl 04/04/16 06:10 Neutrophils % 72.5 % (40.0-80.0) 04/04/16 06:10 Band Neutrophils % 3 % (0-10) 04/01/16 04:48 Lymphocytes % 13.5 % (20.0-50.0) L 04/04/16 06:10 Monocytes % 8.6 % (2.0-10.0) 04/04/16 06:10 Eosinophils % 5.2 % (0.0-5.0) H 04/04/16 06:10 Basophils % 0.2 % (0.0-2.0) 04/04/16 06:10 Neutrophils (Manual) 74 % (40-80) 04/03/16 06:20 Lymphocytes 13 % (20-50) L 04/03/16 06:20 Monocytes 6 % (2-10) 04/03/16 06:20 Eosinophils 7 % (0-5) H 04/03/16 06:20 Basophils 1 % (0-3) 03/12/16 08:00 Metamyelocytes 1 % (0-0) H 03/29/16 05:00 Platelet Estimate ADEQUATE (NORMAL) 04/03/16 06:20 Platelet Morphology NORMAL (NORMAL) 04/03/16 06:20 Polychromasia 1+ 03/24/16 06:45 Anisocytosis 1+ 04/01/16 04:48 Microcytosis 1+ 03/21/16 06:19 RBC Morph Micro Appear NORMAL (NORMAL) 04/03/16 06:20 PT 11.4 SECONDS (9.5-11.5) 03/24/16 20:04 INR 1.14 (0.5-1.4) 03/24/16 20:04 PTT (Actin FS) 30.2 SECONDS (26.0-38.0) 03/24/16 20:04 Specimen Source Arterial 03/21/16 16:45 Sample Site Right Radial 03/21/16 16:45 pH 7.37 (7.35-7.45) 03/21/16 16:45 pCO2 40.0 mmHg (35.0-45.0) 03/21/16 16:45 pO2 85.0 mmHg (80.0-100.0) 03/21/16 16:45 HCO3 23.1 mmol/L (20.0-26.0) 03/21/16 16:45 Base Excess -2.0 mmol/L (-3.0-3.0) 03/21/16 16:45 O2 Saturation 96.0 % (92.0-100.0) 03/21/16 16:45 Galo Test YES 03/21/16 16:45 Vent Rate NA 03/21/16 16:45 Inspired O2 40 03/21/16 16:45 Tidal Volume NA 03/21/16 16:45 PEEP NA 03/21/16 16:45 Pressure (ins/psv/peep) NA 03/21/16 16:45 Critical Value E.HERNANDEZ 03/21/16 16:45 Sodium 135 mEq/L (136-145) L 04/04/16 06:10 Potassium 4.5 mEq/L (3.5-5.1) 04/04/16 06:10 Chloride 103 mEq/L (98-107) 04/04/16 06:10 Carbon Dioxide 26.0 mEq/L (21.0-31.0) 04/04/16 06:10 Anion Gap 10.5 (7.0-16.0) 04/04/16 06:10 BUN 17 mg/dL (7-25) 04/04/16 06:10 Creatinine 0.9 mg/dL (0.7-1.3) 04/04/16 06:10 Est GFR ( Amer) > 60.0 ml/min (>90) 04/04/16 06:10 Est GFR (Non-Af Amer) > 60.0 ml/min 04/04/16 06:10 BUN/Creatinine Ratio 18.9 04/04/16 06:10 Glucose 122 mg/dL (70-105) H 04/04/16 06:10 POC Glucose 125 MG/DL (70 - 105) H 04/04/16 23:11 Hemoglobin A1c % 5.1 % (4.0-6.0) 03/26/16 06:10 Whole Bld Lactic Acid 1.80 mmol/L (0.60-2.00) 03/26/16 06:10 Calcium 8.8 mg/dL (8.6-10.3) 04/04/16 06:10 Phosphorus 3.3 mg/dL (2.5-5.0) 04/04/16 06:10 Magnesium 2.1 mg/dL (1.9-2.7) 04/04/16 06:10 Ferritin 136 ng/mL (30-400) 03/19/16 07:40 Total Bilirubin 0.4 mg/dL (0.3-1.0) 04/01/16 04:48 AST 10 U/L (13-39) L 04/01/16 04:48 ALT 6 U/L (7-52) L 04/01/16 04:48 Alkaline Phosphatase 56 U/L (34-104) 04/01/16 04:48 Ammonia 32 umol/L (16-53) 03/29/16 05:00 B-Natriuretic Peptide 13.3 pg/mL (5.0-100.0) 04/04/16 06:10 Total Protein 6.9 gm/dL (6.0-8.3) 04/01/16 04:48 Albumin 2.8 gm/dL (4.2-5.5) L 04/01/16 04:48 Globulin 4.1 gm/dL 04/01/16 04:48 Albumin/Globulin Ratio 0.7 (1.0-1.8) L 04/01/16 04:48 Prealbumin 15 mg/dL (10-36) 04/01/16 04:48 Triglycerides 78 mg/dL (<150) 04/01/16 04:48 Cholesterol 61 mg/dL (<200) 04/01/16 04:48 Carcinoembryonic Ag 2.7 ng/mL (0.0-4.7) 03/18/16 06:19 Vitamin B12 389 pg/mL (211-946) 03/10/16 04:30 Folic Acid 13.3 ng/mL (>3.0) 03/10/16 04:30 TSH 2.57 uIU/ml (0.34-5.60) 03/10/16 04:30 Urine Source CATH 03/13/16 16:00 Urine Color YELLOW 03/13/16 16:00 Urine Clarity CLEAR (CLEAR) 03/13/16 16:00 Urine pH 5.5 03/13/16 16:00 Ur Specific [place] 1.010 (1.005-1.030) 03/13/16 16:00 Urine Protein NEGATIVE mg/dL (NEGATIVE) 03/13/16 16:00 Urine Glucose (UA) NEGATIVE mg/dL (NEGATIVE) 03/13/16 16:00 Urine Ketones NEGATIVE mg/dL (NEGATIVE) 03/13/16 16:00 Urine Blood LARGE (NEGATIVE) H 03/13/16 16:00 Urine Nitrate NEGATIVE (NEGATIVE) 03/13/16 16:00 Urine Bilirubin NEGATIVE (NEGATIVE) 03/13/16 16:00 Urine Urobilinogen 1.0 E.U./dL (0.2 - 1.0) 03/13/16 16:00 Ur Leukocyte Esterase TRACE (NEGATIVE) H 03/13/16 16:00 Urine RBC 10-25 /hpf (0-5) H 03/13/16 16:00 Urine WBC 6-10 /hpf (0-5) H 03/13/16 16:00 Ur Epithelial Cells FEW /lpf (FEW) 03/13/16 16:00 Urine Bacteria OCCASIONAL /hpf (NONE SEEN) 03/13/16 16:00 Vancomycin Trough 12.5 ug/mL (10-20) 04/02/16 09:00 Blood Type B POSITIVE 03/29/16 09:15 Antibody Screen NEGATIVE 03/29/16 09:15 Crossmatch See Detail 03/29/16 09:15 - Physical Exam Vitals and I&O: Vital Signs Temp 98 F 04/05/16 04:00 Pulse 108 04/05/16 04:00 Resp 19 04/05/16 07:00 BP 116/54 04/05/16 04:00 Pulse Ox 96 04/05/16 04:00 Intake & Output 04/04/16 04/05/16 04/05/16 18:59 06:59 18:59 Intake Total 1600 850 Output Total 900 Balance 1600 -50 Intake: Intake, IV Amount 1600 600 D5-0.45NS 1,000 ml @ 40 1000 mls/hr IV .Q24H [facility] Rx#: [id number] Erythromycin Lact 500 mg 0 500 In Sodium Chloride 0.9% 250 ml @ 100 mls/hr IV Q12HR@1100,2300 [facility] Rx#: [id number] Meropenem 1 gm In Sodium 100 100 Chloride 0.9% 100 ml @ 100 mls/hr IV Q12HR@0200, 1400 [facility] Rx#:[id number] Vancomycin HCl 1.75 gm In 500 Sodium Chloride 0.9% 500 ml @ 250 mls/hr IV Q24H [facility] Rx#:[id number] Oral 250 Output: Urine 900 Other: Stool Characteristics Liquid Liquid Liquid Brown Brown Brown Active Medications: Current Medications Acetaminophen (Tylenol) 650 mg PO Q6HR PRN PRN Reason: PAIN OR TEMP >100 Stop: 05/08/16 21:33 Last Admin: 03/26/16 11:31 Dose: 650 mg Acetaminophen (Tylenol 650mg Supp) 650 mg RC Q6H PRN PRN Reason: Fever > 101 Stop: 05/28/16 12:49 Last Admin: 03/29/16 16:42 Dose: 650 mg Acetaminophen (Tylenol 650mg Supp) 650 mg RC Q4H PRN PRN Reason: Fever > 101 Stop: 05/28/16 12:55 Acetaminophen/Codeine Phosphate (Tylenol W/Codeine #3) 1 tab PO Q4HR PRN PRN Reason: PAIN Stop: 05/08/16 21:33 Al Hydrox/Mg Hydrox/Simethicone (Maalox) 30 ml PO Q4HR PRN PRN Reason: Indigestion Stop: 05/08/16 21:33 Albuterol Sulfate (Albuterol 2.5mg/3ml Neb Ud) 2.5 mg IH Q2HR PRN PRN Reason: Shortness of Breath or Wheeze Stop: 05/08/16 21:37 Albuterol Sulfate (Albuterol 2.5mg/3ml Neb Ud) 2.5 mg HHN Q4HRT [facility] Stop: 05/20/16 18:59 Last Admin: 04/05/16 02:33 Dose: Not Given Donepezil HCl (Aricept) 10 mg PO HS [facility] Stop: 05/09/16 20:59 Last Admin: 04/04/16 20:51 Dose: 10 mg Enoxaparin Sodium (Lovenox) 30 mg SUBQ DAILY [facility] Stop: 05/28/16 14:59 Last Admin: 04/04/16 08:41 Dose: Not Given Dextrose/Sodium Chloride (D5-0.45ns) 1,000 mls @ 40 mls/hr IV .Q24H [facility] Stop: 05/18/16 12:59 Last Admin: 04/05/16 02:05 Dose: 40 mls/hr Norepinephrine Bitartrate 4 mg (/ Dextrose) 254 mls @ 15.24 mls/hr IV TITR PRN ; Protocol; 4 MCG/MIN PRN Reason: BP MAINTENANCE (PER PROTOCOL) Stop: 05/20/16 11:23 Last Titration: 03/21/16 14:45 Dose: 0 mcg/min, 0 mls/hr Erythromycin Lactobionate 500 (mg/ Sodium Chloride) 250 mls @ 100 mls/hr IV Q12HR@1100,2300 [facility] Stop: 05/29/16 10:59 Last Infusion: 04/05/16 01:40 Dose: Infused Meropenem 1 gm/ Sodium (Chloride) 100 mls @ 100 mls/hr IV Q12HR@0200,1400 [facility] Stop: 05/27/16 20:59 Last Infusion: 04/05/16 03:04 Dose: Infused Multivitamins/Minerals 10 ml/Amino Acids/ Fat Emulsion Intravenous/ Sterile Water 1,680 mls @ 70 mls/hr IV .Q24H [facility] Stop: 05/27/16 15:59 Last Admin: 04/04/16 19:16 Dose: 70 mls/hr Vancomycin HCl 1.75 gm/ Sodium (Chloride) 500 mls @ 250 mls/hr IV Q24H [facility] Stop: 06/02/16 08:59 Last Infusion: 04/04/16 18:52 Dose: Infused Insulin Aspart (Novolog Insulin Sliding Scale) 0 units SUBQ Q6HR [facility] PRN Reason: Protocol Stop: 05/25/16 17:59 Last Admin: 04/05/16 06:14 Dose: Not Given Lactobacillus Rhamnosus (Culturelle) 1 each PO DAILY [facility] Stop: 05/22/16 08:59 Last Admin: 04/04/16 08:28 Dose: 1 each Meclizine HCl (Antivert) 25 mg PO DAILY PRN PRN Reason: Nausea / Vomiting Stop: 05/08/16 21:37 Last Admin: 03/26/16 11:32 Dose: 25 mg Metoclopramide HCl (Reglan) 10 mg IVP Q8HR [facility] Stop: 05/23/16 12:59 Last Admin: 04/05/16 04:39 Dose: 10 mg Mirtazapine (Remeron) 7.5 mg PO HS [facility] PRN Reason: Protocol Stop: 05/09/16 20:59 Last Admin: 04/04/16 20:52 Dose: 7.5 mg Miscellaneous (Vte Chemical Prophylaxis Screen/ Admission) 1 ea PRN PRN PRN Reason: PROTOCOL Stop: 05/10/16 17:12 Miscellaneous (Tpn Per Pharmacy) 1 ea DAILY [facility] Stop: 05/20/16 14:39 Miscellaneous (Probiotic Screen) 1 ea PRN PRN PRN Reason: PROTOCOL Stop: 05/21/16 14:39 Ondansetron HCl (Zofran) 4 mg IV Q8H PRN PRN Reason: Nausea / Vomiting Stop: 05/08/16 21:37 Last Admin: 03/21/16 20:01 Dose: 4 mg Pantoprazole Sodium (Protonix) 40 mg IVP BID [facility] Stop: 05/31/16 16:59 Last Admin: 04/04/16 17:47 Dose: 40 mg Quetiapine Fumarate (Seroquel) 100 mg PO QPM [facility] PRN Reason: Protocol Stop: 05/09/16 16:59 Last Admin: 04/04/16 17:47 Dose: 100 mg Tamsulosin HCl (Flomax) 0.4 mg PO DAILY [facility] Stop: 05/09/16 08:59 Last Admin: 04/04/16 08:28 Dose: 0.4 mg - Procedures Procedures: Procedures Procedure Code Date APPENDECTOMY ADD-ON 39794 03/10/16 BIOPSY OF BOWEL 40791 03/10/16 BYPASS DESCENDING COLON TO CUTANEOUS, OPEN APPROACH [id number] 03/10/16 COLOSTOMY 33617 03/10/16 EGD BIOPSY SINGLE/MULTIPLE 73785 03/10/16 EXCISION OF ILEUM, OPEN APPROACH [id number] 03/10/16 EXCISION OF LARGE INTESTINE, PERCUTANEOUS APPROACH, DIAGN [id number] 03/10/16 EXCISION OF STOMACH, ENDO, DIAGN [id number] 03/10/16 FREEING OF BOWEL ADHESION 83775 03/10/16 GROUP PSYCHOTHERAPY 77200 06/08/03 INDIVID PSYCHOTHERAP NEC 94.39 06/08/03 OTHER GROUP THERAPY 94.44 06/08/03 RELEASE ILEUM, OPEN APPROACH [id number] 03/10/16 REMOVAL OF SMALL INTESTINE 58642 03/10/16 RESECTION OF APPENDIX, OPEN APPROACH [id number] 03/10/16 Assessment/Plan - Problem List Patient Problems: All Active Problems BLOOD CLOT IN STOOL (Acute)
[2016-04-05] MEDS: Vancomycin HCl 1.75 GM in Sodium Chloride 0.9% 500 ML IV SCH (08:39)
[2016-04-05] MEDS: Enoxaparin 40 mg/0.4 mL 0.4mL Syr SUBQ SCH (08:40)
[2016-04-05] MEDS: Lactobacillus Rhamnosus 10 Billion CFU Capsule PO SCH (08:40)
[2016-04-05 09:12] LABS: ANION GAP 12.9 (7.0-16.0); BUN - UREA NITROGEN 16 mg/dL (7-25); CALCIUM SERUM 9.1 mg/dL (8.6-10.3); CARBON DIOXIDE 26.7 mEq/L (21.0-31.0); CHLORIDE 102 mEq/L (98-107); CREATININE - SERUM 0.8 mg/dL (0.7-1.3); GLUCOSE 122 mg/dL (70-105); MAGNESIUM 2.2 mg/dL (1.9-2.7); PHOSPHOROUS 3.8 mg/dL (2.5-5.0); POTASSIUM SERUM 4.6 mEq/L (3.5-5.1); SODIUM SERUM 137 mEq/L (136-145)
[2016-04-05] MEDS: ERYTHROMYCIN LACT IV SCH ×2 (11:37→11:46)
[2016-04-05] MEDS: SODIUM CHLORIDE 0.9% IV SCH ×2 (11:37→11:46)
--- NOTE | 2016-04-05 11:55 | Infectious Disease Prog Note ---
Infectious Disease Subjective - Review of Systems Service Date: 04/05/16 Subjective: There is no fever. Infectious Disease Objective - Results Result Diagrams: 04/04/16 06:10 04/05/16 08:30 Recent Labs: Laboratory Last Values WBC 10.9 Th/cmm (4.8-10.8) H D 04/04/16 06:10 RBC 3.36 Mil/cmm (3.80-5.80) L 04/04/16 06:10 Hgb 9.4 gm/dL (12.6-17.4) L 04/04/16 06:10 Hct 26.8 % (39.0-49.0) L D 04/04/16 06:10 MCV 79.9 fl (80-99) L 04/04/16 06:10 MCH 27.9 pg (27.0-31.0) 04/04/16 06:10 MCHC Differential 34.8 pg (28.0-36.0) 04/04/16 06:10 RDW 18.0 % (11.5-20.0) 04/04/16 06:10 Plt Count 461 Th/cmm (150-400) H 04/04/16 06:10 MPV 8.1 fl 04/04/16 06:10 Neutrophils % 72.5 % (40.0-80.0) 04/04/16 06:10 Band Neutrophils % 3 % (0-10) 04/01/16 04:48 Lymphocytes % 13.5 % (20.0-50.0) L 04/04/16 06:10 Monocytes % 8.6 % (2.0-10.0) 04/04/16 06:10 Eosinophils % 5.2 % (0.0-5.0) H 04/04/16 06:10 Basophils % 0.2 % (0.0-2.0) 04/04/16 06:10 Neutrophils (Manual) 74 % (40-80) 04/03/16 06:20 Lymphocytes 13 % (20-50) L 04/03/16 06:20 Monocytes 6 % (2-10) 04/03/16 06:20 Eosinophils 7 % (0-5) H 04/03/16 06:20 Basophils 1 % (0-3) 03/12/16 08:00 Metamyelocytes 1 % (0-0) H 03/29/16 05:00 Platelet Estimate ADEQUATE (NORMAL) 04/03/16 06:20 Platelet Morphology NORMAL (NORMAL) 04/03/16 06:20 Polychromasia 1+ 03/24/16 06:45 Anisocytosis 1+ 04/01/16 04:48 Microcytosis 1+ 03/21/16 06:19 RBC Morph Micro Appear NORMAL (NORMAL) 04/03/16 06:20 PT 11.4 SECONDS (9.5-11.5) 03/24/16 20:04 INR 1.14 (0.5-1.4) 03/24/16 20:04 PTT (Actin FS) 30.2 SECONDS (26.0-38.0) 03/24/16 20:04 Specimen Source Arterial 03/21/16 16:45 Sample Site Right Radial 03/21/16 16:45 pH 7.37 (7.35-7.45) 03/21/16 16:45 pCO2 40.0 mmHg (35.0-45.0) 03/21/16 16:45 pO2 85.0 mmHg (80.0-100.0) 03/21/16 16:45 HCO3 23.1 mmol/L (20.0-26.0) 03/21/16 16:45 Base Excess -2.0 mmol/L (-3.0-3.0) 03/21/16 16:45 O2 Saturation 96.0 % (92.0-100.0) 03/21/16 16:45 Galo Test YES 03/21/16 16:45 Vent Rate NA 03/21/16 16:45 Inspired O2 40 03/21/16 16:45 Tidal Volume NA 03/21/16 16:45 PEEP NA 03/21/16 16:45 Pressure (ins/psv/peep) NA 03/21/16 16:45 Critical Value E.HERNANDEZ 03/21/16 16:45 Sodium 137 mEq/L (136-145) 04/05/16 08:30 Potassium 4.6 mEq/L (3.5-5.1) 04/05/16 08:30 Chloride 102 mEq/L (98-107) 04/05/16 08:30 Carbon Dioxide 26.7 mEq/L (21.0-31.0) 04/05/16 08:30 Anion Gap 12.9 (7.0-16.0) 04/05/16 08:30 BUN 16 mg/dL (7-25) 04/05/16 08:30 Creatinine 0.8 mg/dL (0.7-1.3) 04/05/16 08:30 Est GFR ( Amer) > 60.0 ml/min (>90) 04/05/16 08:30 Est GFR (Non-Af Amer) > 60.0 ml/min 04/05/16 08:30 BUN/Creatinine Ratio 20.0 04/05/16 08:30 Glucose 122 mg/dL (70-105) H 04/05/16 08:30 POC Glucose 112 MG/DL (70 - 105) H 04/05/16 11:42 Hemoglobin A1c % 5.1 % (4.0-6.0) 03/26/16 06:10 Whole Bld Lactic Acid 1.80 mmol/L (0.60-2.00) 03/26/16 06:10 Calcium 9.1 mg/dL (8.6-10.3) 04/05/16 08:30 Phosphorus 3.8 mg/dL (2.5-5.0) 04/05/16 08:30 Magnesium 2.2 mg/dL (1.9-2.7) 04/05/16 08:30 Ferritin 136 ng/mL (30-400) 03/19/16 07:40 Total Bilirubin 0.4 mg/dL (0.3-1.0) 04/01/16 04:48 AST 10 U/L (13-39) L 04/01/16 04:48 ALT 6 U/L (7-52) L 04/01/16 04:48 Alkaline Phosphatase 56 U/L (34-104) 04/01/16 04:48 Ammonia 32 umol/L (16-53) 03/29/16 05:00 B-Natriuretic Peptide 13.3 pg/mL (5.0-100.0) 04/04/16 06:10 Total Protein 6.9 gm/dL (6.0-8.3) 04/01/16 04:48 Albumin 2.8 gm/dL (4.2-5.5) L 04/01/16 04:48 Globulin 4.1 gm/dL 04/01/16 04:48 Albumin/Globulin Ratio 0.7 (1.0-1.8) L 04/01/16 04:48 Prealbumin 15 mg/dL (10-36) 04/01/16 04:48 Triglycerides 78 mg/dL (<150) 04/01/16 04:48 Cholesterol 61 mg/dL (<200) 04/01/16 04:48 Carcinoembryonic Ag 2.7 ng/mL (0.0-4.7) 03/18/16 06:19 Vitamin B12 389 pg/mL (211-946) 03/10/16 04:30 Folic Acid 13.3 ng/mL (>3.0) 03/10/16 04:30 TSH 2.57 uIU/ml (0.34-5.60) 03/10/16 04:30 Urine Source CATH 03/13/16 16:00 Urine Color YELLOW 03/13/16 16:00 Urine Clarity CLEAR (CLEAR) 03/13/16 16:00 Urine pH 5.5 03/13/16 16:00 Ur Specific [place] 1.010 (1.005-1.030) 03/13/16 16:00 Urine Protein NEGATIVE mg/dL (NEGATIVE) 03/13/16 16:00 Urine Glucose (UA) NEGATIVE mg/dL (NEGATIVE) 03/13/16 16:00 Urine Ketones NEGATIVE mg/dL (NEGATIVE) 03/13/16 16:00 Urine Blood LARGE (NEGATIVE) H 03/13/16 16:00 Urine Nitrate NEGATIVE (NEGATIVE) 03/13/16 16:00 Urine Bilirubin NEGATIVE (NEGATIVE) 03/13/16 16:00 Urine Urobilinogen 1.0 E.U./dL (0.2 - 1.0) 03/13/16 16:00 Ur Leukocyte Esterase TRACE (NEGATIVE) H 03/13/16 16:00 Urine RBC 10-25 /hpf (0-5) H 03/13/16 16:00 Urine WBC 6-10 /hpf (0-5) H 03/13/16 16:00 Ur Epithelial Cells FEW /lpf (FEW) 03/13/16 16:00 Urine Bacteria OCCASIONAL /hpf (NONE SEEN) 03/13/16 16:00 Vancomycin Trough 19.1 ug/mL (10-20) 04/05/16 08:30 Blood Type B POSITIVE 03/29/16 09:15 Antibody Screen NEGATIVE 02/03/17 09:15 Crossmatch See Detail 03/29/16 09:15 - Physical Exam Vitals and I&O: Vital Signs Temp 98.8 F 04/05/16 08:00 Pulse 104 04/05/16 08:00 Resp 18 04/05/16 08:00 BP 112/62 04/05/16 08:00 Pulse Ox 98 04/05/16 08:00 Intake & Output 04/04/16 04/05/16 04/05/16 18:59 06:59 18:59 Intake Total 1600 850 Output Total 900 Balance 1600 -50 Intake: Intake, IV Amount 1600 600 D5-0.45NS 1,000 ml @ 40 1000 mls/hr IV .Q24H [facility] Rx#: [id number] Erythromycin Lact 500 mg 0 500 In Sodium Chloride 0.9% 250 ml @ 100 mls/hr IV Q12HR@1100,2300 [facility] Rx#: [id number] Meropenem 1 gm In Sodium 100 100 Chloride 0.9% 100 ml @ 100 mls/hr IV Q12HR@0200, 1400 [facility] Rx#:[id number] Vancomycin HCl 1.75 gm In 500 Sodium Chloride 0.9% 500 ml @ 250 mls/hr IV Q24H [facility] Rx#:[id number] Oral 250 Output: Urine 900 Other: Stool Characteristics Liquid Liquid Liquid Brown Brown Brown Active Medications: Current Medications Acetaminophen (Tylenol) 650 mg PO Q6HR PRN PRN Reason: PAIN OR TEMP >100 Stop: 05/08/16 21:33 Last Admin: 03/26/16 11:31 Dose: 650 mg Acetaminophen (Tylenol 650mg Supp) 650 mg RC Q6H PRN PRN Reason: Fever > 101 Stop: 05/28/16 12:49 Last Admin: 03/29/16 16:42 Dose: 650 mg Acetaminophen (Tylenol 650mg Supp) 650 mg RC Q4H PRN PRN Reason: Fever > 101 Stop: 05/28/16 12:55 Acetaminophen/Codeine Phosphate (Tylenol W/Codeine #3) 1 tab PO Q4HR PRN PRN Reason: PAIN Stop: 05/08/16 21:33 Al Hydrox/Mg Hydrox/Simethicone (Maalox) 30 ml PO Q4HR PRN PRN Reason: Indigestion Stop: 05/08/16 21:33 Albuterol Sulfate (Albuterol 2.5mg/3ml Neb Ud) 2.5 mg IH Q2HR PRN PRN Reason: Shortness of Breath or Wheeze Stop: 05/08/16 21:37 Albuterol Sulfate (Albuterol 2.5mg/3ml Neb Ud) 2.5 mg HHN Q4HRT [facility] Stop: 05/20/16 18:59 Last Admin: 04/05/16 02:33 Dose: Not Given Donepezil HCl (Aricept) 10 mg PO HS [facility] Stop: 05/09/16 20:59 Last Admin: 04/04/16 20:51 Dose: 10 mg Enoxaparin Sodium (Lovenox) 30 mg SUBQ DAILY [facility] Stop: 05/28/16 14:59 Last Admin: 04/05/16 08:40 Dose: 30 mg Dextrose/Sodium Chloride (D5-0.45ns) 1,000 mls @ 40 mls/hr IV .Q24H [facility] Stop: 05/18/16 12:59 Last Admin: 04/05/16 02:05 Dose: 40 mls/hr Erythromycin Lactobionate 500 (mg/ Sodium Chloride) 250 mls @ 100 mls/hr IV Q12HR@1100,2300 [facility] Stop: 05/29/16 10:59 Last Infusion: 04/05/16 01:40 Dose: Infused Meropenem 1 gm/ Sodium (Chloride) 100 mls @ 100 mls/hr IV Q12HR@0200,1400 [facility] Stop: 05/27/16 20:59 Last Infusion: 04/05/16 03:04 Dose: Infused Multivitamins/Minerals 10 ml/Amino Acids/ Fat Emulsion Intravenous/ Sterile Water 1,680 mls @ 70 mls/hr IV .Q24H [facility] Stop: 04/05/16 16:00 Last Admin: 04/04/16 19:16 Dose: 70 mls/hr Vancomycin HCl 1.75 gm/ Sodium (Chloride) 500 mls @ 250 mls/hr IV Q24H [facility] Stop: 06/02/16 08:59 Last Admin: 04/05/16 08:39 Dose: 250 mls/hr Multivitamins/Minerals 10 ml/Amino Acids/Electrolytes/Dextrose/ Sterile Water 1 ,775 mls @ 70 mls/hr IV .Q24H [facility] Stop: 06/04/16 15:59 Insulin Aspart (Novolog Insulin Sliding Scale) 0 units SUBQ Q6HR [facility] PRN Reason: Protocol Stop: 05/25/16 17:59 Last Admin: 04/05/16 06:14 Dose: Not Given Lactobacillus Rhamnosus (Culturelle) 1 each PO DAILY [facility] Stop: 05/22/16 08:59 Last Admin: 04/05/16 08:40 Dose: 1 each Meclizine HCl (Antivert) 25 mg PO DAILY PRN PRN Reason: Nausea / Vomiting Stop: 05/08/16 21:37 Last Admin: 03/26/16 11:32 Dose: 25 mg Metoclopramide HCl (Reglan) 10 mg IVP Q8HR [facility] Stop: 05/23/16 12:59 Last Admin: 04/05/16 04:39 Dose: 10 mg Mirtazapine (Remeron) 7.5 mg PO HS [facility] PRN Reason: Protocol Stop: 05/09/16 20:59 Last Admin: 04/04/16 20:52 Dose: 7.5 mg Miscellaneous (Vte Chemical Prophylaxis Screen/ Admission) 1 ea PRN PRN PRN Reason: PROTOCOL Stop: 05/10/16 17:12 Miscellaneous (Tpn Per Pharmacy) 1 ea MC DAILY [facility] Stop: 05/20/16 14:39 Miscellaneous (Probiotic Screen) 1 ea PRN PRN PRN Reason: PROTOCOL Stop: 05/21/16 14:39 Ondansetron HCl (Zofran) 4 mg IV Q8H PRN PRN Reason: Nausea / Vomiting Stop: 05/08/16 21:37 Last Admin: 03/21/16 20:01 Dose: 4 mg Pantoprazole Sodium (Protonix) 40 mg IVP BID [facility] Stop: 05/31/16 16:59 Last Admin: 04/05/16 08:40 Dose: 40 mg Quetiapine Fumarate (Seroquel) 100 mg PO QPM AMAURI PRN Reason: Protocol Stop: 05/09/16 16:59 Last Admin: 04/04/16 17:47 Dose: 100 mg Tamsulosin HCl (Flomax) 0.4 mg PO DAILY AMA[facility] Stop: 05/09/16 08:59 Last Admin: 04/05/16 08:40 Dose: 0.4 mg General: no acute distress, well developed, well nourished HEENT: atraumatic, normocephalic, PERRLA Neck: supple Cardiovascular: S1S2, regular Lungs: clear to auscultation bilaterally, clear to percussion Abdomen: soft, distended, other (Colostomy.), no tender Extremities: no cyanosis, no clubbing, no edema Neurological: awake, alert, oriented Skin: intact - Procedures Procedures: Procedures Procedure Code Date APPENDECTOMY ADD-ON 05861 03/10/16 BIOPSY OF BOWEL 39887 03/10/16 BYPASS DESCENDING COLON TO CUTANEOUS, OPEN APPROACH [id number] 03/10/16 COLOSTOMY 97143 03/10/16 EGD BIOPSY SINGLE/MULTIPLE 87089 03/10/16 EXCISION OF ILEUM, OPEN APPROACH [id number] 03/10/16 EXCISION OF LARGE INTESTINE, PERCUTANEOUS APPROACH, DIAGN [id number] 03/10/16 EXCISION OF STOMACH, ENDO, DIAGN [id number] 03/10/16 FREEING OF BOWEL ADHESION 71550 03/10/16 GROUP PSYCHOTHERAPY 91708 06/08/03 INDIVID PSYCHOTHERAP NEC 94.39 06/08/03 OTHER GROUP THERAPY 94.44 06/08/03 RELEASE ILEUM, OPEN APPROACH [id number] 03/10/16 REMOVAL OF SMALL INTESTINE 78453 03/10/16 RESECTION OF APPENDIX, OPEN APPROACH [id number] 03/10/16 Infectious Disease Assmt/Plan - Problem List Patient Problems: All Active Problems BLOOD CLOT IN STOOL (Acute) - Assessment Assessment: Impression: 1. Sepsis, fever and leukocytosis likley due to peritonitis. ?SBO. Improving. Leukocytosis has improved. There is no more fever. 2. Peritonitis. 3. GI Bleed resolved. 4. Dementia. 5. History of hypertension. 6. s/p colectomy and colostomy. 7. Intraabdominal mass? colon CA. associated colitis. 8. Suspect ileus versus SBO. RECOMMENDATIONS: DC vanco IV and continue meropenem for few more days.
[2016-04-05] MEDS ORDERED: [UNRECOGNIZED DRUG - OTHER] IV SCH (16:00)
[2016-04-05] MEDS ORDERED: DEXTROSE 70% IV SCH (16:00)
[2016-04-05] MEDS ORDERED: WATER IV SCH (16:00)
[2016-04-05] MEDS ORDERED: AMINO ACIDS IV SCH (16:00)
[2016-04-05] MEDS ORDERED: MULTIVITAMIN IV SCH (16:00)
--- NOTE | 2016-04-05 18:15 | General Progress Note ---
Subjective - Review of Systems Service Date: 04/05/16 Subjective: EVENTS NOTED. JOSEPH ORAL DIET. COLOSTOMY FUNCTIONAL. Objective - Results Result Diagrams: 04/04/16 06:10 04/05/16 08:30 Recent Labs: Laboratory Last Values WBC 10.9 Th/cmm (4.8-10.8) H D 04/04/16 06:10 RBC 3.36 Mil/cmm (3.80-5.80) L 04/04/16 06:10 Hgb 9.4 gm/dL (12.6-17.4) L 04/04/16 06:10 Hct 26.8 % (39.0-49.0) L D 04/04/16 06:10 MCV 79.9 fl (80-99) L 04/04/16 06:10 MCH 27.9 pg (27.0-31.0) 04/04/16 06:10 MCHC Differential 34.8 pg (28.0-36.0) 04/04/16 06:10 RDW 18.0 % (11.5-20.0) 04/04/16 06:10 Plt Count 461 Th/cmm (150-400) H 04/04/16 06:10 MPV 8.1 fl 04/04/16 06:10 Neutrophils % 72.5 % (40.0-80.0) 04/04/16 06:10 Band Neutrophils % 3 % (0-10) 04/01/16 04:48 Lymphocytes % 13.5 % (20.0-50.0) L 04/04/16 06:10 Monocytes % 8.6 % (2.0-10.0) 04/04/16 06:10 Eosinophils % 5.2 % (0.0-5.0) H 04/04/16 06:10 Basophils % 0.2 % (0.0-2.0) 04/04/16 06:10 Neutrophils (Manual) 74 % (40-80) 04/03/16 06:20 Lymphocytes 13 % (20-50) L 04/03/16 06:20 Monocytes 6 % (2-10) 04/03/16 06:20 Eosinophils 7 % (0-5) H 04/03/16 06:20 Basophils 1 % (0-3) 03/12/16 08:00 Metamyelocytes 1 % (0-0) H 03/29/16 05:00 Platelet Estimate ADEQUATE (NORMAL) 04/03/16 06:20 Platelet Morphology NORMAL (NORMAL) 04/03/16 06:20 Polychromasia 1+ 03/24/16 06:45 Anisocytosis 1+ 04/01/16 04:48 Microcytosis 1+ 03/21/16 06:19 RBC Morph Micro Appear NORMAL (NORMAL) 04/03/16 06:20 PT 11.4 SECONDS (9.5-11.5) 03/24/16 20:04 INR 1.14 (0.5-1.4) 03/24/16 20:04 PTT (Actin FS) 30.2 SECONDS (26.0-38.0) 03/24/16 20:04 Specimen Source Arterial 03/21/16 16:45 Sample Site Right Radial 03/21/16 16:45 pH 7.37 (7.35-7.45) 03/21/16 16:45 pCO2 40.0 mmHg (35.0-45.0) 03/21/16 16:45 pO2 85.0 mmHg (80.0-100.0) 03/21/16 16:45 HCO3 23.1 mmol/L (20.0-26.0) 03/21/16 16:45 Base Excess -2.0 mmol/L (-3.0-3.0) 03/21/16 16:45 O2 Saturation 96.0 % (92.0-100.0) 03/21/16 16:45 Galo Test YES 03/21/16 16:45 Vent Rate NA 03/21/16 16:45 Inspired O2 40 03/21/16 16:45 Tidal Volume NA 03/21/16 16:45 PEEP NA 03/21/16 16:45 Pressure (ins/psv/peep) NA 03/21/16 16:45 Critical Value E.HERNANDEZ 03/21/16 16:45 Sodium 137 mEq/L (136-145) 04/05/16 08:30 Potassium 4.6 mEq/L (3.5-5.1) 04/05/16 08:30 Chloride 102 mEq/L (98-107) 04/05/16 08:30 Carbon Dioxide 26.7 mEq/L (21.0-31.0) 04/05/16 08:30 Anion Gap 12.9 (7.0-16.0) 04/05/16 08:30 BUN 16 mg/dL (7-25) 04/05/16 08:30 Creatinine 0.8 mg/dL (0.7-1.3) 04/05/16 08:30 Est GFR ( Amer) > 60.0 ml/min (>90) 04/05/16 08:30 Est GFR (Non-Af Amer) > 60.0 ml/min 04/05/16 08:30 BUN/Creatinine Ratio 20.0 04/05/16 08:30 Glucose 122 mg/dL (70-105) H 04/05/16 08:30 POC Glucose 112 MG/DL (70 - 105) H 04/05/16 11:42 Hemoglobin A1c % 5.1 % (4.0-6.0) 03/26/16 06:10 Whole Bld Lactic Acid 1.80 mmol/L (0.60-2.00) 03/26/16 06:10 Calcium 9.1 mg/dL (8.6-10.3) 04/05/16 08:30 Phosphorus 3.8 mg/dL (2.5-5.0) 04/05/16 08:30 Magnesium 2.2 mg/dL (1.9-2.7) 04/05/16 08:30 Ferritin 136 ng/mL (30-400) 03/19/16 07:40 Total Bilirubin 0.4 mg/dL (0.3-1.0) 04/01/16 04:48 AST 10 U/L (13-39) L 04/01/16 04:48 ALT 6 U/L (7-52) L 04/01/16 04:48 Alkaline Phosphatase 56 U/L (34-104) 04/01/16 04:48 Ammonia 32 umol/L (16-53) 03/29/16 05:00 B-Natriuretic Peptide 13.3 pg/mL (5.0-100.0) 04/04/16 06:10 Total Protein 6.9 gm/dL (6.0-8.3) 04/01/16 04:48 Albumin 2.8 gm/dL (4.2-5.5) L 04/01/16 04:48 Globulin 4.1 gm/dL 04/01/16 04:48 Albumin/Globulin Ratio 0.7 (1.0-1.8) L 04/01/16 04:48 Prealbumin 15 mg/dL (10-36) 04/01/16 04:48 Triglycerides 78 mg/dL (<150) 04/01/16 04:48 Cholesterol 61 mg/dL (<200) 04/01/16 04:48 Carcinoembryonic Ag 2.7 ng/mL (0.0-4.7) 03/18/16 06:19 Vitamin B12 389 pg/mL (211-946) 03/10/16 04:30 Folic Acid 13.3 ng/mL (>3.0) 03/10/16 04:30 TSH 2.57 uIU/ml (0.34-5.60) 03/10/16 04:30 Urine Source CATH 03/13/16 16:00 Urine Color YELLOW 03/13/16 16:00 Urine Clarity CLEAR (CLEAR) 03/13/16 16:00 Urine pH 5.5 03/13/16 16:00 Ur Specific [place] 1.010 (1.005-1.030) 03/13/16 16:00 Urine Protein NEGATIVE mg/dL (NEGATIVE) 03/13/16 16:00 Urine Glucose (UA) NEGATIVE mg/dL (NEGATIVE) 03/13/16 16:00 Urine Ketones NEGATIVE mg/dL (NEGATIVE) 03/13/16 16:00 Urine Blood LARGE (NEGATIVE) H 03/13/16 16:00 Urine Nitrate NEGATIVE (NEGATIVE) 03/13/16 16:00 Urine Bilirubin NEGATIVE (NEGATIVE) 03/13/16 16:00 Urine Urobilinogen 1.0 E.U./dL (0.2 - 1.0) 03/13/16 16:00 Ur Leukocyte Esterase TRACE (NEGATIVE) H 03/13/16 16:00 Urine RBC 10-25 /hpf (0-5) H 03/13/16 16:00 Urine WBC 6-10 /hpf (0-5) H 03/13/16 16:00 Ur Epithelial Cells FEW /lpf (FEW) 03/13/16 16:00 Urine Bacteria OCCASIONAL /hpf (NONE SEEN) 03/13/16 16:00 Vancomycin Trough 19.1 ug/mL (10-20) 04/05/16 08:30 Blood Type B POSITIVE 03/29/16 09:15 Antibody Screen NEGATIVE 03/29/16 09:15 Crossmatch See Detail 03/29/16 09:15 - Physical Exam Vitals and I&O: Vital Signs Temp 98.4 F 04/05/16 16:59 Pulse 112 04/05/16 17:19 Resp 18 04/05/16 17:19 BP 125/73 04/05/16 16:59 Pulse Ox 99 04/05/16 17:19 Intake & Output 04/04/16 04/05/16 04/05/16 18:59 06:59 18:59 Intake Total 1600 850 Output Total 900 Balance 1600 -50 Intake: Intake, IV Amount 1600 600 D5-0.45NS 1,000 ml @ 40 1000 mls/hr IV .Q24H [facility] Rx#: [id number] Erythromycin Lact 500 mg 0 500 In Sodium Chloride 0.9% 250 ml @ 100 mls/hr IV Q12HR@1100,2300 [facility] Rx#: [id number] Meropenem 1 gm In Sodium 100 100 Chloride 0.9% 100 ml @ 100 mls/hr IV Q12HR@0200, 1400 [facility] Rx#:[id number] Vancomycin HCl 1.75 gm In 500 Sodium Chloride 0.9% 500 ml @ 250 mls/hr IV Q24H [facility] Rx#:[id number] Oral 250 Output: Urine 900 Other: Stool Characteristics Liquid Liquid Liquid Brown Brown Brown Active Medications: Current Medications Acetaminophen (Tylenol) 650 mg PO Q6HR PRN PRN Reason: PAIN OR TEMP >100 Stop: 05/08/16 21:33 Last Admin: 03/26/16 11:31 Dose: 650 mg Acetaminophen (Tylenol 650mg Supp) 650 mg RC Q6H PRN PRN Reason: Fever > 101 Stop: 05/28/16 12:49 Last Admin: 03/29/16 16:42 Dose: 650 mg Acetaminophen (Tylenol 650mg Supp) 650 mg RC Q4H PRN PRN Reason: Fever > 101 Stop: 05/28/16 12:55 Acetaminophen/Codeine Phosphate (Tylenol W/Codeine #3) 1 tab PO Q4HR PRN PRN Reason: PAIN Stop: 05/08/16 21:33 Last Admin: 04/05/16 15:44 Dose: 1 tab Al Hydrox/Mg Hydrox/Simethicone (Maalox) 30 ml PO Q4HR PRN PRN Reason: Indigestion Stop: 05/08/16 21:33 Albuterol Sulfate (Albuterol 2.5mg/3ml Neb Ud) 2.5 mg IH Q2HR PRN PRN Reason: Shortness of Breath or Wheeze Stop: 05/08/16 21:37 Albuterol Sulfate (Albuterol 2.5mg/3ml Neb Ud) 2.5 mg HHN Q4HRT [facility] Stop: 05/20/16 18:59 Last Admin: 04/05/16 17:18 Dose: Not Given Donepezil HCl (Aricept) 10 mg PO HS [facility] Stop: 05/09/16 20:59 Last Admin: 04/04/16 20:51 Dose: 10 mg Enoxaparin Sodium (Lovenox) 30 mg SUBQ DAILY [facility] Stop: 05/28/16 14:59 Last Admin: 04/05/16 08:40 Dose: 30 mg Dextrose/Sodium Chloride (D5-0.45ns) 1,000 mls @ 40 mls/hr IV .Q24H [facility] Stop: 05/18/16 12:59 Last Admin: 04/05/16 02:05 Dose: 40 mls/hr Meropenem 1 gm/ Sodium (Chloride) 100 mls @ 100 mls/hr IV Q12HR@0200,1400 [facility] Stop: 05/27/16 20:59 Last Admin: 04/05/16 14:40 Dose: 100 mls/hr Insulin Aspart (Novolog Insulin Sliding Scale) 0 units SUBQ Q6HR [facility] PRN Reason: Protocol Stop: 05/25/16 17:59 Last Admin: 04/05/16 12:15 Dose: Not Given Lactobacillus Rhamnosus (Culturelle) 1 each PO DAILY [facility] Stop: 05/22/16 08:59 Last Admin: 04/05/16 08:40 Dose: 1 each Meclizine HCl (Antivert) 25 mg PO DAILY PRN PRN Reason: Nausea / Vomiting Stop: 05/08/16 21:37 Last Admin: 03/26/16 11:32 Dose: 25 mg Metoclopramide HCl (Reglan) 10 mg IVP Q8HR [facility] Stop: 05/23/16 12:59 Last Admin: 04/05/16 13:35 Dose: 10 mg Mirtazapine (Remeron) 7.5 mg PO HS [facility] PRN Reason: Protocol Stop: 05/09/16 20:59 Last Admin: 04/04/16 20:52 Dose: 7.5 mg Miscellaneous (Vte Chemical Prophylaxis Screen/ Admission) 1 ea PRN PRN PRN Reason: PROTOCOL Stop: 05/10/16 17:12 Miscellaneous (Probiotic Screen) 1 ea PRN PRN PRN Reason: PROTOCOL Stop: 05/21/16 14:39 Ondansetron HCl (Zofran) 4 mg IV Q8H PRN PRN Reason: Nausea / Vomiting Stop: 05/08/16 21:37 Last Admin: 03/21/16 20:01 Dose: 4 mg Pantoprazole Sodium (Protonix) 40 mg IVP BID [facility] Stop: 05/31/16 16:59 Last Admin: 04/05/16 17:45 Dose: 40 mg Quetiapine Fumarate (Seroquel) 100 mg PO QPM [facility] PRN Reason: Protocol Stop: 05/09/16 16:59 Last Admin: 04/05/16 17:45 Dose: 100 mg Tamsulosin HCl (Flomax) 0.4 mg PO DAILY [facility] Stop: 05/09/16 08:59 Last Admin: 04/05/16 08:40 Dose: 0.4 mg General: Alert HEENT: Atraumatic Neck: Supple Cardiovascular: Regular rate Lungs: Clear to auscultation Abdomen: Bowel sounds, Other (intact colostomy) - Procedures Procedures: Procedures Procedure Code Date APPENDECTOMY ADD-ON 93467 03/10/16 BIOPSY OF BOWEL 68694 03/10/16 BYPASS DESCENDING COLON TO CUTANEOUS, OPEN APPROACH [id number] 03/10/16 COLOSTOMY 66958 03/10/16 EGD BIOPSY SINGLE/MULTIPLE 89357 03/10/16 EXCISION OF ILEUM, OPEN APPROACH [id number] 03/10/16 EXCISION OF LARGE INTESTINE, PERCUTANEOUS APPROACH, DIAGN [id number] 03/10/16 EXCISION OF STOMACH, ENDO, DIAGN [id number] 03/10/16 FREEING OF BOWEL ADHESION 78957 03/10/16 GROUP PSYCHOTHERAPY 30330 06/08/03 INDIVID PSYCHOTHERAP NEC 94.39 06/08/03 OTHER GROUP THERAPY 94.44 06/08/03 RELEASE ILEUM, OPEN APPROACH [id number] 03/10/16 REMOVAL OF SMALL INTESTINE 79356 03/10/16 RESECTION OF APPENDIX, OPEN APPROACH [id number] 03/10/16 Assessment/Plan - Problem List Patient Problems: All Active Problems BLOOD CLOT IN STOOL (Acute) - Assessment Assessment: 1. 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 2. POST OP ILEUS, IMPROVED. 3. ANEMIA. 4. GASTRITIS PER EGD. - Plan Plan: 1. POST OP CARE. 2. REGLAN AND ERYTHROMYCIN. 3. COLOSTOMY CARE. 4. ORAL DIET TOLERATED. 5. TPN TILL ORAL INTAKE NORMALIZES. 6. MONITOR LABS. 7. PT/REHAB IF AVAILABLE.
--- NOTE | 2016-04-05 21:02 | Discharge Summary ---
CHIEF COMPLAINT: Bright red blood. FINAL DIAGNOSES: Gastrointestinal bleeding, severe anemia, colorectal cancer status post resection, failure to thrive, peritonitis, status post small-bowel obstruction, status post ileus, status post colostomy, anemia, status post hypertension, leukocytosis, malnutrition, and paroxysmal atrial fibrillation. HISTORY: This is a 70-year-old male with multiple medical problems including hypertension, COPD, asthma, and dementia, was admitted initially secondary to bright red blood per rectum. The patient had multiple consultants during this admission including Dr. Leodan Ayala and Dr. Cuba for GI, Dr. Keegan Han for Infectious Disease, and Dr. Mancilla for surgery. The patient had EGD showed a sigmoid mass. The patient underwent colon resection. The patient was seen by Dr. Azul. The patient had complicated hospitalizations where he was not tolerating p.o. intake with intractable vomiting. The patient has been placed on TPN. The patient was also being followed by Psychiatry. The patient's improvement was slow and now he seems to be tolerating pureed diet, continued. CONDITION ON DISCHARGE: Fair. OVERALL PROGNOSIS: Poor. DISCHARGE INSTRUCTIONS: To follow with surgeon as well as with Oncology. We will continue to follow the patient, nursing facility. JOB# [id number]
== END 2016-04-05 19:15 | DRG 853 ==
LOC: ER 16:43 → TELE 03-10 15:36 → MSI 03-10 17:00 → ICU 03-21 10:15 → MSI 03-22 15:50 → TELE 03-27 21:13 → ICU 03-28 03:31 → TELE 04-01 14:22
PROVIDERS: ADMIT Internal Medicine; ATTEND Internal Medicine
PROC: 30233N1 Transfusion of Nonautologous Red Blood Cells into Peripheral Vein, Percutaneous Approach (ICD-10-PCS; 2016-03-10)
PROC: 0DB68ZX Excision of Stomach, Via Natural or Artificial Opening Endoscopic, Diagnostic (ICD-10-PCS; principal; 2016-03-12)
PROC: 0DB98ZX Excision of Duodenum, Via Natural or Artificial Opening Endoscopic, Diagnostic (ICD-10-PCS; 2016-03-12)
PROC: 0DBN0ZZ Excision of Sigmoid Colon, Open Approach (ICD-10-PCS; 2016-03-21)
PROC: 0D1M0Z4 Bypass Descending Colon to Cutaneous, Open Approach (ICD-10-PCS; 2016-03-21)
PROC: 0DNB0ZZ Release Ileum, Open Approach (ICD-10-PCS; 2016-03-21)
PROC: 0DTJ0ZZ Resection of Appendix, Open Approach (ICD-10-PCS; 2016-03-21)
PROC: 5A1935Z Respiratory Ventilation, Less than 24 Consecutive Hours (ICD-10-PCS; 2016-03-21)
PROC: 02HV33Z Insertion of Infusion Device into Superior Vena Cava, Percutaneous Approach (ICD-10-PCS; 2016-03-27)
DX: A41.9 Sepsis, unspecified organism (principal); E43 Unspecified severe protein-calorie malnutrition; K65.9 Peritonitis, unspecified; K56.60 Unspecified intestinal obstruction; I95.9 Hypotension, unspecified; J44.9 Chronic obstructive pulmonary disease, unspecified; C19 Malignant neoplasm of rectosigmoid junction; G30.9 Alzheimer's disease, unspecified; F02.80 Dementia in other diseases classified elsewhere, unspecified severity, without behavioral disturbance, psychotic disturbance, mood disturbance, and anxiety; E87.1 Hypo-osmolality and hyponatremia; I48.0 Paroxysmal atrial fibrillation; I10 Essential (primary) hypertension; K25.9 Gastric ulcer, unspecified as acute or chronic, without hemorrhage or perforation; E87.6 Hypokalemia; D50.9 Iron deficiency anemia, unspecified; Y92.89 Other specified places as the place of occurrence of the external cause; J45.909 Unspecified asthma, uncomplicated; F25.9 Schizoaffective disorder, unspecified; K21.9 Gastro-esophageal reflux disease without esophagitis; K29.70 Gastritis, unspecified, without bleeding; R62.51 Failure to thrive (child); Z68.21 Body mass index [BMI] 21.0-21.9, adult
CPT/HCPCS: 36415-UA; 36600-90; 71010-TC; 74000-TC; 76700-TC; 76856-TC; 77012-TC; 78278-TC; 80048-TC; 80053-TC; 80202-TC; 81001-TC; 82140-TC; 82378-90; 82465-TC; 82607-90; 82728-90; 82746-90; 82803-TC; 82948-90; 83036-90; 83605; 83735-TC; 83880-TC; 84100-TC; 84134-90; 84443-TC; 84478-TC; 85007-TC; 85025-TC; 85027-TC; 85610-TC; 85730-TC; 86850-TC; 86900-TC; 86901-TC; 86922-TC; 87070; 87070-90; 87075-90; 87086-90; 87205-90; 88304-TC; 88305-90; 88307-TC; 88312-90; 90782; 90799; 93005; 94002; 94760; 99201; A9512; C1751; C9113; J0696; J1364; J1650; J1815; J1940; J1956; J2001; J2185; J2250; J2270; J2405; J2543; J2704; J2765; J3370; J3475; J3480; J7030; J7040; J7042; J7613; P9016; P9046; Q9967; X3401; X3904; X6024; X6026; X6598; Z7502; Z7610

== ENCOUNTER 2017-10-29 21:27 | Inpatient (IN) | payer MEDICARE, MEDICAID ==
[2017-10-29 22:16] LABS: INR 0.99 (0.5-1.4); PROTHROMBIN TIME (TEST) 10.3 SECONDS (9.5-11.5)
[2017-10-29 22:27] LABS: ALB/GLOB RATIO 0.9 (1.0-1.8); ALBUMIN 3.5 gm/dL (4.2-5.5); ALKALINE PHOSPHATASE 113 U/L (34-104); AMYLASE SERUM 35 U/L (29-103); ANION GAP 18.4 (7.0-16.0); BILIRUBIN,TOTAL 0.6 mg/dL (0.3-1.0); BUN - UREA NITROGEN 45 mg/dL (7-25); CALCIUM SERUM 8.8 mg/dL (8.6-10.3); CARBON DIOXIDE 14.9 mEq/L (21.0-31.0); CHLORIDE 112 mEq/L (98-107); CHOLESTEROL 118 mg/dL (<200); CREATININE - SERUM 1.7 mg/dL (0.7-1.3); CREATININE KINASE 36 U/L (30-223); GLUCOSE 163 mg/dL (70-105); HDL -HIGH DENSITY LIPOPROTEIN 45 mg/dL (23-92); LIPASE 11 U/L (11-82); POTASSIUM SERUM 4.3 mEq/L (3.5-5.1); SGOT 19 U/L (13-39); SGPT/ALT 22 U/L (7-52); SODIUM SERUM 141 mEq/L (136-145); TOTAL PROTEIN,SERUM 7.4 gm/dL (6.0-8.3); TRIGLYCERIDES 121 mg/dL (<150)
[2017-10-29 22:50] LABS: HEMATOCRIT 38.6 % (41.0-60); HEMOGLOBIN 12.3 gm/dL (12-16); MEAN CELL VOLUME 89.4 fl (80-99); MEAN CORPUSCULAR HEMOGLOBIN 28.6 pg (27.0-31.0); MEAN CORPUSCULAR HGB CONC 31.9 pg (28.0-36.0); PLATELET COUNT 348 Th/cmm (150-400); RED BLOOD COUNT 4.32 Mil/cmm (3.80-5.80); RED CELL DISTRIBUTION WIDTH 14.4 % (11.5-20.0); WHITE BLOOD COUNT 19.9 Th/cmm (4.8-10.8)
[2017-10-29 22:51] LABS: MEAN PLATELET VOLUME 8.2 fl
[2017-10-29 23:02] LABS: BAND NEUTROPHILE 2 % (0-10); LYMPHOCYTE 13 % (20-50); MONOCYTE 3 % (2-10); NEUTROPHILS 82 % (40-80); PLATELET ESTIMATE ADEQUATE (NORMAL)
[2017-10-29] MEDS ORDERED: cefTRIAXone 1 GM in Sodium Chloride 0.9% 50 ML IV ONE (23:20)
[2017-10-29] MEDS ORDERED: Sodium Chloride 0.9% 1,000 ML IV ONE (23:21)
--- NOTE | 2017-10-29 23:34 | ED Physician Chart ---
ED Chief Complaint/HPI - Patient Information Date Seen:: 10/29/17 Time Seen:: 21:30 Chief Complaint:: Abdominal Pain History of Present Illness:: onset x one day of Abdominal Pain and Abdominal Distention, N/V; no report of trauma, H/As, S/T, neck pain, C/P, SOB, A/D/C, bleeding, or urinary s/s Allergies:: Allergies Allergy/AdvReac Type Severity Reaction Status Date / Time No Known Allergies Allergy Verified 10/29/17 21:51 Vitals:: Vital Signs - 8 hr 10/29/17 21:33 Temp 98.2 F HR 112 RR 17 BP 138/76 O2 Sat % 97 Historian:: Patient, EMS Review:: Nurse's Note Reviewed, Old Chart Reviewed, EMS run form Reviewed ED Review of Systems - Review of Systems General/Constitutional: No fever, No chills, No weight loss, No weakness, No diaphoresis, No edema, No loss of appetite Skin: No skin lesions, No rash, No bruising Head: No headache, No light-headedness Eyes: No loss of vision, No pain, No diplopia ENT: No earache, No nasal drainage, No sore throat, No tinnitus Neck: No neck pain, No swelling, No thyromegaly, No stiffness, No mass noted Cardio Vascular: No chest pain, No palpitations, No PND, No orthopnea, No edema Pulmonary: No SOB, No cough, No sputum, No wheezing GI: Nausea, Vomiting, Diarrhea, Pain, No melena, No hematochezia, No constipation, No hematemesis G/U: No dysuria, No frequency, No hematuria, No nacturia Musculoskeletal: No bone or joint pain, No back pain, No muscle pain Endocrine: No polyuria, No polydipsia Psychiatric: Prior psych history, No depression, Anxiety, No suicidal ideation, No homicidal ideation, No auditory hallucination, No visual hallucination Hematopoietic: No bruising, No lymphadenopathy Allergic/Immuno: No urticaria, No angioedema Neurological: No syncope, No focal symptoms, No weakness, No paresthesia, No headache, No seizure, No dizziness, No confusion, No vertigo ED Past Medical History - Past Medical History Obtainable: Yes Past Medical History: HTN, PUD/GERD, Other (GI Bleed) Family History: HTN Social History: Non Smoker, No Alcohol, No Drug Use, Single, Care Facility Surgical History: other (Colon Surgery; Colostomy) Psychiatricy History: Bipolar Medication: Reviewed Family Medical History - Family Member Mother History Unknown: Yes Ethnicity: Non- Living Status: ED Physical Exam - Physical Examination General/Constitutional: Awake, Well-developed, well-nourished, Alert, No distress, GCS 15, Non-toxic appearing, Ambulatory Head: Atraumatic Eyes: Lids, conjuctiva normal, PERRL, EOMI Skin: Nl inspection, No rash, No skin lesions, No ecchymosis, Well hydrated, No lymphadenopathy ENMT: External ears, nose nl, TM canals nl, Nasal exam nl, Lips, teeth, gums nl , Oropharynx nl, Tonsils nl Neck: Nontender, Full ROM w/o pain, No JVD, No nuchal rigidity, No bruit, No mass, No stridor Respiratory: Nl effort/Exclusion, Clear to Auscultation, No Wheeze/Rhonchi/Rales Cardio Vascular: RRR, No murmur, gallop, rubs, NL S1 S2, Carotid/Femoral/Distal pulses equal bilaterally GI: No tenderness/rebounding/guarding, No organomegaly, No hernia, Normal BS's, No mass/bruits, No McBurney tenderness Other GI comments:: + Distention : No CVA tenderness Extremities: No tenderness or effusion, Full ROM, normal strength in all extremities, No edema, Normal digits & nails Neuro/Psych: Alert/oriented, DTR's symmetric, Normal sensory exam, Normal motor strength, Judgement/insight normal, Mood normal, Normal gait, No focal deficits Misc: Normal back, No paraspinal tenderness ED Labs/Radiology/EKG Results - Lab Results Results: Laboratory Tests 10/29/17 10/29/17 10/29/17 21:50 21:50 21:50 WBC RBC Hgb Hct MCV MCH MCHC Differential RDW Plt Count MPV Add Manual Diff Band Neutrophils % Neutrophils (Manual) Lymphocytes Monocytes Platelet Estimate PT 10.3 INR 0.99 Sodium 141 Potassium 4.3 Chloride 112 H Carbon Dioxide 14.9 L Anion Gap 18.4 H BUN 45 H Creatinine 1.7 H Est GFR ( Amer) TNP Est GFR (Non-Af Amer) TNP BUN/Creatinine Ratio 26.5 Glucose 163 H Calcium 8.8 Total Bilirubin 0.6 AST 19 ALT 22 Alkaline Phosphatase 113 H Creatine Kinase 36 Troponin I 0.04 B-Natriuretic Peptide Total Protein 7.4 Albumin 3.5 L Globulin 3.9 Albumin/Globulin Ratio 0.9 L Triglycerides 121 Cholesterol 118 LDL Cholesterol Direct 51 L HDL Cholesterol 45 Amylase 35 Lipase 11 10/29/17 10/29/17 22:30 22:30 WBC 19.9 H RBC 4.32 Hgb 12.3 Hct 38.6 L MCV 89.4 MCH 28.6 MCHC Differential 31.9 RDW 14.4 Plt Count 348 MPV 8.2 Add Manual Diff YES Band Neutrophils % 2 Neutrophils (Manual) 82 H Lymphocytes 13 L Monocytes 3 Platelet Estimate ADEQUATE PT INR Sodium Potassium Chloride Carbon Dioxide Anion Gap BUN Creatinine Est GFR ( Amer) Est GFR (Non-Af Amer) BUN/Creatinine Ratio Glucose Calcium Total Bilirubin AST ALT Alkaline Phosphatase Creatine Kinase Troponin I B-Natriuretic Peptide 30.0 Total Protein Albumin Globulin Albumin/Globulin Ratio Triglycerides Cholesterol LDL Cholesterol Direct HDL Cholesterol Amylase Lipase Comments:: Reviewed - Radiology Results Comments:: + Ileus; + Air/Fluid Levels; + SBO - EKG Interpretations Rate & Rhythm: ST Comments:: non-specific st-t changes ED Septic Shock - . Is Septic Shock (SBP<90, OR Lactate>4 mmol\L) present?: No - <6hrs of presentation: Vital Signs: Vital Signs - 8 hr 10/29/17 21:33 Temp 98.2 F HR 112 RR 17 BP 138/76 O2 Sat % 97 ED Reassessment (Disposition) - Reassessment Reassessment Condition:: Improved - Diagnosis Diagnosis:: Abdominal Pain; Abdominal Distention; Bowel Obstruction; Dehydration; Pre-Renal Azotemia; Anemia; Leukocytosis; Sepsis - Aftercare/Follow up Instructions Aftercare/Follow-Up Instructions:: Counseled pt regarding lab results/diagnosis & need follow up, Counseled pt & family regarding lab results/diagnosis & need follow up - Patient Disposition Discharge/Transfer:: Acute Care w/in this hosp Accepting Physician:: Dr. Plaza Time Called:: 0 Time Responded:: 23:00 Admitted to:: Telemetry Spoke to:: Dr. Plaza Admitting Medical Physician:: Dr. Plaza Condition at Disposition:: Stable, Improved
[2017-10-29] MEDS ORDERED: Magnesium Hydroxide (MOM) 30 mL UDC PO PRN (23:35)
[2017-10-29] MEDS ORDERED: Maalox 30 mL Cup PO PRN (23:35)
[2017-10-29] MEDS ORDERED: Ipratropium Neb 0.5 mg/2.5 mL UD HHN PRN (23:36)
[2017-10-29] MEDS ORDERED: Albuterol Nebulizer 2.5mg/3mL HHN PRN (23:36)
[2017-10-29] MEDS ORDERED: Morphine Sulfate 2 mg/mL 1mL Syr IVP PRN (23:37)
[2017-10-30] MEDS ORDERED: Levofloxacin 500mg/100mL 500 MG/100 ML BAG IV ONE ×2 (01:22→02:00)
[2017-10-30 01:32] VITALS: BP 122/72
[2017-10-30] MEDS ORDERED: D5-0.9%NS 1,000 ML IV SCH (03:00)
[2017-10-30] MEDS ORDERED: metroNIDAZOLE 500mg/NS 100mL 500 MG/100 ML BAG IV SCH (05:00)
[2017-10-30] MEDS ORDERED: Pantoprazole 40 mg EC Tab PO SCH (07:30)
--- NOTE | 2017-10-30 07:49 | Diagnostic Imaging Report ---
CT abdomen and pelvis without intravenous contrast Indication: Abdominal pain and distention Comparison: CT abdomen and pelvis on 03/27/2016, Technique: Axial images were obtained from the lung bases to the bilateral proximal femurs without IV contrast. Coronal reconstructions were made. total DLP: 397, CTDI7.6 FINDINGS: Right basal focal infiltrate is noted. Chronic changes of the lung bases are noted. Atelectatic changes are also noted. Assessment of the solid organs is limited due to lack of IV contrast. No focal hepatic lesions. Gallstone is noted. No focal splenic lesions. Severe pancreatic gland calcifications are seen likely due to chronic pancreatitis. No focal adrenal lesions. Subcentimeter left renal lesions are seen to small characterize and possibly representing cysts. Lobulated left renal contours are noted. No hydronephrosis. There is extensive atherosclerotic vascular disease. There are multiple markedly distended loops of small bowel with air-fluid levels. Postsurgical changes are seen along the right lower quadrant possibly within the distal small bowel. The appendix is not seen. There is prominence of the rectal region of the stomach. A left lower quadrant ostomy is noted. There is diastases of the midline rectus abdominis muscles with protrusion of bowel loops. No gross free air. No free fluid identified. Degenerative changes of the spine are noted. There is a 1 cm sclerotic lesion of the left superior acetabulum. IMPRESSION: Multiple mildly distended loops of small bowel with multiple air-fluid levels most concerning for small bowel obstruction. Clinical correlation and surgical consultation is recommended. There are postsurgical changes in the right lower quadrant which may be due within small bowel loops in this region. Please correlate with clinical history. Left lower quadrant ostomy. There is Prominence of the proximal rectal wall at the stump. This is nonspecific.. Inflammatory or Neoplastic processes cannot be completely excluded. Follow-up is recommended. Diastases of the midline rectus abdominis muscles with wide-base protrusion of bowel loops. No evidence of free fluid or free air. Gallstone noted. 6 Pancreatic gland calcifications, sequela of Chronic pancreatitis. Heavy atherosclerotic vascular disease. Right basal focal infiltrate. Follow-up is recommended to ensure resolution.
--- NOTE | 2017-10-30 08:25 | Diagnostic Imaging Report ---
Portable chest x-ray History: Pain Allowing for portable technique the heart size is normal. No focal pulmonary parenchymal processes. No hilar or mediastinal abnormalities. Impression: No acute abnormalities.
[2017-10-30] MEDS ORDERED: Lactobacillus Rhamnosus GG 15 Billion CFU CAP.SPRINK PO SCH (09:00)
[2017-10-30] MEDS ORDERED: Fish Oil 1,000 MG SGL PO SCH (09:00)
--- NOTE | 2017-10-30 10:05 | Internal Medicine Prog Note ---
Internal Medicine Subjective - Subjective Service Date: 10/30/17 ([id number] hnp dictated) Internal Medicine Objective - Results Result Diagrams: 10/29/17 22:30 10/29/17 21:50 Recent Labs: Laboratory Last Values WBC 19.9 Th/cmm (4.8-10.8) H 10/29/17 22:30 RBC 4.32 Mil/cmm (3.80-5.80) 10/29/17 22:30 Hgb 12.3 gm/dL (12-16) 10/29/17 22:30 Hct 38.6 % (41.0-60) L 10/29/17 22:30 MCV 89.4 fl (80-99) 10/29/17 22:30 MCH 28.6 pg (27.0-31.0) 10/29/17 22:30 MCHC Differential 31.9 pg (28.0-36.0) 10/29/17 22:30 RDW 14.4 % (11.5-20.0) 10/29/17 22:30 Plt Count 348 Th/cmm (150-400) 10/29/17 22:30 MPV 8.2 fl 10/29/17 22:30 Add Manual Diff YES 10/29/17 22:30 Band Neutrophils % 2 % (0-10) 10/29/17 22:30 Neutrophils (Manual) 82 % (40-80) H 10/29/17 22:30 Lymphocytes 13 % (20-50) L 10/29/17 22:30 Monocytes 3 % (2-10) 10/29/17 22:30 Platelet Estimate ADEQUATE (NORMAL) 10/29/17 22:30 PT 10.3 SECONDS (9.5-11.5) 10/29/17 21:50 INR 0.99 (0.5-1.4) 10/29/17 21:50 Sodium 141 mEq/L (136-145) 10/29/17 21:50 Potassium 4.3 mEq/L (3.5-5.1) 10/29/17 21:50 Chloride 112 mEq/L (98-107) H 10/29/17 21:50 Carbon Dioxide 14.9 mEq/L (21.0-31.0) L 10/29/17 21:50 Anion Gap 18.4 (7.0-16.0) H 10/29/17 21:50 BUN 45 mg/dL (7-25) H 10/29/17 21:50 Creatinine 1.7 mg/dL (0.7-1.3) H 10/29/17 21:50 Est GFR ( Amer) TNP 10/29/17 21:50 Est GFR (Non-Af Amer) TNP 10/29/17 21:50 BUN/Creatinine Ratio 26.5 10/29/17 21:50 Glucose 163 mg/dL (70-105) H 10/29/17 21:50 Whole Bld Lactic Acid 1.15 mmol/L (0.60-1.99) 10/29/17 22:30 Calcium 8.8 mg/dL (8.6-10.3) 10/29/17 21:50 Total Bilirubin 0.6 mg/dL (0.3-1.0) 10/29/17 21:50 AST 19 U/L (13-39) 10/29/17 21:50 ALT 22 U/L (7-52) 10/29/17 21:50 Alkaline Phosphatase 113 U/L (34-104) H 10/29/17 21:50 Creatine Kinase 36 U/L (30-223) 10/29/17 21:50 Troponin I 0.04 ng/mL (0.01-0.05) 10/29/17 21:50 B-Natriuretic Peptide 30.0 pg/mL (5.0-100.0) 10/29/17 22:30 Total Protein 7.4 gm/dL (6.0-8.3) 10/29/17 21:50 Albumin 3.5 gm/dL (4.2-5.5) L 10/29/17 21:50 Globulin 3.9 gm/dL 10/29/17 21:50 Albumin/Globulin Ratio 0.9 (1.0-1.8) L 10/29/17 21:50 Triglycerides 121 mg/dL (<150) 10/29/17 21:50 Cholesterol 118 mg/dL (<200) 10/29/17 21:50 LDL Cholesterol Direct 51 mg/dL (75-193) L 10/29/17 21:50 HDL Cholesterol 45 mg/dL (23-92) 10/29/17 21:50 Amylase 35 U/L (29-103) 10/29/17 21:50 Lipase 11 U/L (11-82) 10/29/17 21:50 - Physical Exam Vitals and I&O: Vital Signs Temp 100.0 F 10/30/17 07:53 Pulse 117 10/30/17 07:53 Resp 18 10/30/17 07:53 BP 106/66 10/30/17 07:53 Pulse Ox 95 10/30/17 07:53 Intake & Output 10/29/17 10/30/17 10/30/17 18:59 06:59 18:59 Weight (lbs) 114 lb 3 oz Other: # Voids 1 # Bowel Movements 0 Weight Source Bedscale Active Medications: Current Medications Acetaminophen (Tylenol) 650 mg PO Q6HR PRN PRN Reason: PAIN OR TEMP >100 Stop: 12/28/17 23:34 Al Hydrox/Mg Hydrox/Simethicone (Maalox) 30 ml PO Q4HR PRN PRN Reason: Indigestion Stop: 12/28/17 23:34 Albuterol Sulfate (Albuterol 2.5mg/3ml Neb Ud) 2.5 mg HHN Q2HRT PRN PRN Reason: Shortness of Breath or Wheeze Stop: 12/28/17 23:35 Amlodipine Besylate (Norvasc) 5 mg PO DAILY PENDING SALE TO [facility] Stop: 12/29/17 08:59 Last Admin: 10/30/17 09:13 Dose: Not Given Fish Oil ([place] 3) 1,000 mg PO DAILY PENDING SALE TO [facility] Stop: 12/29/17 08:59 Last Admin: 10/30/17 09:13 Dose: Not Given Dextrose/Sodium Chloride (D5-0.9%Ns) 1,000 mls @ 80 mls/hr IV .[id number] PENDING SALE TO [facility] Stop: 12/29/17 02:59 Last Admin: 10/30/17 02:08 Dose: 80 mls/hr Levofloxacin (Levaquin Pb) 250 mg in 50 mls @ 50 mls/hr IV Q24HR@2200 AMAURI; Protocol Stop: 12/29/17 21:59 Metronidazole (Flagyl) 500 mg in 100 mls @ 100 mls/hr IV Q8HR PENDING SALE TO [facility] Stop: 12/29/17 04:59 Last Admin: 10/30/17 04:40 Dose: 100 mls/hr Ipratropium [place] (Atrovent Neb 0.5mg/2.5ml) 0.5 mg HHN Q2HRT PRN PRN Reason: Shortness of Breath or Wheeze Stop: 12/28/17 23:35 Lactobacillus Rhamnosus (Culturelle 15b) 1 each PO DAILY PENDING SALE TO [facility] Stop: 12/29/17 08:59 Last Admin: 10/30/17 09:13 Dose: Not Given Magnesium Hydroxide (Milk Of Magnesia) 30 ml PO HS PRN PRN Reason: Constipation Stop: 12/28/17 23:34 Memantine (Namenda) 5 mg PO DAILY PENDING SALE TO [facility] Stop: 12/29/17 08:59 Last Admin: 10/30/17 09:14 Dose: Not Given Methylprednisolone Sodium Succinate (Solu-Medrol) 80 mg IVP Q8HR PENDING SALE TO [facility] Stop: 12/29/17 04:59 Last Admin: 10/30/17 04:39 Dose: 80 mg Mirtazapine (Remeron) 7.5 mg PO HS PENDING SALE TO [facility]; Protocol Stop: 12/29/17 20:59 Morphine Sulfate (Morphine) 2 mg IVP Q4H PRN PRN Reason: Pain (Severe) Stop: 12/28/17 23:36 Ondansetron HCl (Zofran) 4 mg IV Q8H PRN PRN Reason: Nausea / Vomiting Stop: 12/28/17 23:36 Pantoprazole Sodium (Protonix) 40 mg PO QDAC PENDING SALE TO [facility] Stop: 12/29/17 07:29 Last Admin: 10/30/17 06:42 Dose: Not Given Quetiapine Fumarate (Seroquel) 200 mg PO BID PENDING SALE TO [facility]; Protocol Stop: 12/29/17 08:59 Tamsulosin HCl (Flomax) 0.4 mg PO DAILY PENDING SALE TO [facility] Stop: 12/29/17 08:59 Last Admin: 10/30/17 09:14 Dose: Not Given - Procedures Procedures: Procedures Procedure Code Date APPENDECTOMY ADD-ON 78284 03/10/16 BIOPSY OF BOWEL 44232 03/10/16 BYPASS DESCENDING COLON TO CUTANEOUS, OPEN APPROACH [id number] 03/10/16 COLOSTOMY 79716 03/10/16 EGD BIOPSY SINGLE/MULTIPLE 63407 03/10/16 EXCISION OF DUODENUM, ENDO, DIAGN [id number] 03/10/16 EXCISION OF SIGMOID COLON, OPEN APPROACH [id number] 03/10/16 EXCISION OF STOMACH, ENDO, DIAGN [id number] 03/10/16 FREEING OF BOWEL ADHESION 54442 03/10/16 GROUP PSYCHOTHERAPY 64028 06/08/03 INDIVID PSYCHOTHERAP NEC 94.39 06/08/03 INSERTION OF INFUSION DEV INTO SUP VENA CAVA, PERC APPROACH [id number] 03/10/16 OTHER GROUP THERAPY 94.44 06/08/03 RELEASE ILEUM, OPEN APPROACH [id number] 03/10/16 REMOVAL OF SMALL INTESTINE 94354 03/10/16 RESECTION OF APPENDIX, OPEN APPROACH [id number] 03/10/16 RESPIRATORY VENTILATION, LESS THAN 24 CONSECUTIVE HOURS [id number] 03/10/16 TRANSFUSE NONAUT RED BLOOD CELLS IN PERIPH VEIN, PERC [id number] 03/10/16
--- NOTE | 2017-10-30 11:15 | History & Physical ---
ADMIT DATE: 10/30/2017 DICTATED FOR: Dr. Adriano Plaza CHIEF COMPLAINT: Abdominal pain. HISTORY OF PRESENT ILLNESS: This is a 72-year-old -[place] male who is a resident of [facility], admitted here to the telemetry unit due to 1-day history of abdominal pain associated with abdominal distention. The patient denies any nausea, vomiting or any constipation or any fevers. For further management, the patient is now admitted here to the telemetry unit. PAST MEDICAL HISTORY: Hypertension, GERD, history of GI bleed, history of bipolar. FAMILY HISTORY: Noncontributory. SOCIAL HISTORY: The patient is a long-term resident, requiring 24-hour nursing care. PAST SURGICAL HISTORY: Colon surgery with colostomy. MEDICATIONS: Please see medication list. REVIEW OF SYSTEMS: GENERAL: Denies any fevers and chills. CARDIOVASCULAR: Denies any chest pain. RESPIRATORY: Denies shortness of breath. GASTROINTESTINAL: The patient complains of abdominal pain with abdominal distention. Denies any constipation. GENITOURINARY: Denies any dysuria. All other systems are reviewed and negative. PHYSICAL EXAMINATION: GENERAL: Elderly male, awake, alert, in no apparent distress. VITAL SIGNS: Temperature 100.0, heart rate 117, blood pressure 106/66, respiration 18, O2 95%. HEENT: Head normocephalic, atraumatic. NECK: Supple. No mass. LUNGS: Clear bilaterally. HEART: Regular rhythm. ABDOMEN: Distended, nontender. SKIN: Positive for excoriations. LABORATORY DATA: WBC 19.9, H and H 12.3/38.6, platelet of 348. Sodium 141, potassium 4.3, chloride 112, BUN 45, creatinine 1.7, albumin 3.5. DIAGNOSTIC DATA: The patient had a CT of the abdomen and pelvis done and impression is multiple mildly distended loops of small bowel with multiple air fluid levels, most concerning for small-bowel obstruction, left lower quadrant ostomy. There is prominence of the proximal rectal wall, at this time nonspecific, inflammatory or neoplastic process cannot be excluded. Diastasis of the midline rectus abdominis muscles with wide-based protrusion of bowel loops, no evidence of free fluid or free air. Gallstones noted. Pancreatic gland calcifications compatible with chronic pancreatitis. Heavy atherosclerotic vascular disease, right basal focal infiltrate. The patient also had a chest x-ray done, impression is no acute abnormalities. ASSESSMENT: Abdominal pain, possible small-bowel obstruction, leukocytosis, acute renal insufficiency, rule out acute dehydration, mild protein-calorie malnutrition, hypertension, gastroesophageal reflux disease, history of bipolar, colostomy status, right basal focal infiltrates as shown in the CT. PLAN: The patient will be admitted to the telemetry unit. We will get Hematology as well GI on the case. Keep the patient n.p.o. for now and keep the patient on IV fluids for hydration. Empiric IV antibiotic of Levaquin 250 mg IV q.24 will be given as well as Flagyl 500 mg. We will get some followup labs for tomorrow morning. We will continue to follow this patient. [facility]# [id number]
[2017-10-30] MEDS ORDERED: Levofloxacin 250mg/50mL 250 MG/50 ML BAG IV SCH (22:00)
--- NOTE | 2017-11-11 16:54 | Discharge Summary ---
DATE OF DISCHARGE: 10/30/2017 DISCHARGE DIAGNOSES: Abdominal pain, possible small-bowel obstruction, leukocytosis, acute renal insufficiency, rule out acute dehydration, mild protein-calorie malnutrition, hypertension, GERD, history of bipolar, colostomy status, right basal focal infiltrates as shown in the CT. HISTORY OF PRESENT ILLNESS: A 72-year-old -[place]i male who is a resident of [facility], admitted to the telemetry unit due to 1-day history of abdominal pain associated with abdominal distention. The patient denied any fevers, nausea, vomiting or any constipation or any fevers. For further management, the patient was admitted to the telemetry unit. During the hospital stay, the patient was admitted to the telemetry unit. The patient had a GI consultation. The patient was kept on IV fluids for hydration. Due to insurance purposes, the patient was transferred to [facility]. CONDITION UPON DISCHARGE: Fair. DISPOSITION: [facility]. JOB# [id number]
== END 2017-10-30 12:10 | disposition short-term general hospital (02) | DRG 872 ==
LOC: ER 21:27 → TELE 23:40
PROVIDERS: ADMIT Internal Medicine; ATTEND Internal Medicine
DX: A41.9 Sepsis, unspecified organism (principal); K56.609 Unspecified intestinal obstruction, unspecified as to partial versus complete obstruction; E44.1 Mild protein-calorie malnutrition; Z68.1 Body mass index [BMI] 19.9 or less, adult; I10 Essential (primary) hypertension; K21.9 Gastro-esophageal reflux disease without esophagitis; F31.9 Bipolar disorder, unspecified; E86.0 Dehydration; D64.9 Anemia, unspecified; N28.9 Disorder of kidney and ureter, unspecified; Z82.49 Family history of ischemic heart disease and other diseases of the circulatory system; Z93.3 Colostomy status
CPT/HCPCS: 36415-UA; 71045-TC; 80053-TC; 80061-TC; 82150-TC; 82550-TC; 83605; 83690-TC; 83880-TC; 84484-TC; 85007-TC; 85025-TC; 85610-TC; 90799; 93005; 94760; J0696; J1956; J2930